=== PATIENT | male | born 1945 | race Caucasian/White ===

== ENCOUNTER 2017-01-04 06:24 | Day surgery (SDC) | payer MEDICARE, OTHER ==
[2017-01-01 10:18] VITALS: BMI 36.5
[~2017-01-04 06:24] MED LIST: ALPRAZolam 0.25 MG TAB PO PRN; ALPRAZolam 0.5 MG TAB PO PRN; ASPIRIN 325 MG TAB PO STA; ATORVASTATIN 80 MG TAB PO STA; NITROGLYCERIN SL TABS 0.4 MG TAB SUBLINGUAL PRN; SODIUM CHLORIDE 0.9% 1,000 ML in EMPTY BAG 1 BAG IV ONE
[2017-01-04 06:54] VITALS: TEMP 97.6
[2017-01-04 07:15] LABS: Basophils % (A) 1 %; CH 30.6; CHCM 33.5; Eosinophils # (A) 0.2 k/uL (0-0.7); Eosinophils % (A) 5 %; HDW 2.55; HGB 15.5 gm/dL (13.0-17.5); Luc # (Auto) 0.11; Luc % (Auto) 2; Lymphocytes # (A) 1.1 k/uL (1.0-4.8); Lymphocytes % (A) 21 %; MCH 30.4 pg (25.0-35.0); MCHC 33.1 g/dL (31.0-37.0); MCV 91.8 fL (80.0-100.0); Mean Platelet Volume 8.1; Monocytes # (A) 0.4 k/uL (0-1.0); Monocytes % (A) 7 %; Neutrophils # (A) 3.4 k/uL (1.3-7.7); Neutrophils % (A) 65 %; RBC 5.12 m/uL (4.30-5.90); WBC 5.2 k/uL (3.8-10.6); WBC (Perox) 5.19
[2017-01-04 07:32] LABS: Anion Gap 8 mmol/L; Blood Urea Nitrogen 22 mg/dL (9-20); Calcium 9.2 mg/dL (8.4-10.2); Carbon Dioxide 24 mmol/L (22-30); Chloride 111 mmol/L (98-107); Glucose 93 mg/dL (74-99); Non-African American GFR(MDRD) >60 (>60 ml/min/1.73 sqM); Sodium 143 mmol/L (137-145)
[2017-01-04 07:39] LABS: Potassium 4.7 mmol/L (3.5-5.1)
[2017-01-04] MEDS ORDERED: MIDAZOLAM 2 MG/2 ML VIAL IV ONE ×2 (07:59→08:14)
[2017-01-04] MEDS ORDERED: LIDOCAINE 2% INJ 20 MG/ML SQ ONE (08:01)
[2017-01-04] MEDS ORDERED: HYDROmorphone 2 MG/ML 1 ML SYRINGE IVP ONE (09:04)
[2017-01-04] MEDS ORDERED: RX INFO: IV CONTRAST WAS GIVEN 1 EACH MISC MISCELLANE PRN (09:23)
[2017-01-04] MEDS ORDERED: IOHEXOL 350 MG/ML 125ML BOTTLE INJ ONE (09:26)
[2017-01-04] MEDS ORDERED: SODIUM CHLORIDE 0.9% 1,000 ML IV SCH (09:30)
[2017-01-04 11:49] VITALS: RESP 18
--- NOTE | 2017-01-04 14:19 | CC ---
DATE OF SERVICE: 01/04/2017 PERFORMING PHYSICIAN: Anant Juarez MD, Restrooms Or Lounges Maid PROCEDURE PERFORMED: 1. Selective left and right coronary angiogram. 2. Left internal mammary artery angiogram. 3. An aortic root angiogram. INDICATION: This is a pleasant 71-year-old gentleman who is known to have coronary artery disease and in 2016 he underwent coronary artery bypass grafting x3 where he received BELTRAN to LAD, SVG to diag and SVG to PDA of RCA as well as aortic valve replacement, was experiencing intermittent episodes of chest discomfort resistant to maximize medical treatment. He was brought today to undergo a heart catheterization and possible percutaneous coronary intervention. APPROACH: Right common femoral artery. COMPLICATION: None. LEVEL OF SEDATION: Moderate with a sedation length of 80 minutes. PROCEDURE DESCRIPTION: After obtaining an informed consent, the patient was brought to the Cardiac Pantographer. The right common femoral artery was cannulated using micropuncture technique. The micropuncture wire passed easily. Then I placed a 6 Korean sheath in the right common femoral artery. Subsequently, I did selective right and left coronary angiogram using JL4 and JR4 catheters. After that, I did left internal mammary artery angiograph using a JR4 catheter. I tried engaging the SVG to diag and SVG to PDA using multiple catheters including JR4, LCV, multipurpose, as well as an AL1, and I was unable. At that point, I decided to stop and do aortic root angiogram which will be explained later in this report. SELECTIVE CORONARY ANGIOGRAM: 1. The left main is calcified with a critical disease distally, appeared to be in the range of 90% and seems to be involving the ostial left circumflex and ostial left anterior descending artery. 2. LEFT CIRCUMFLEX: The ostial left circumflex appeared to be severely diseased in the range of 80 to 90%. 3. PROXIMAL LEFT CIRCUMFLEX appeared to be angiographically normal and gives rises into first and second obtuse marginal branches which are moderate caliber vessel with mild disease only. The mid-left circumflex appeared to be angiographically normal and the left circumflex distally appeared to be angiographically normal as well. 4. LEFT ANTERIOR DESCENDING ARTERY: The LAD seems to be 100% occluded in the proximal portion. It gives rise into a large size diagonal branch which has competitive flow in it. 5. RIGHT CORONARY ARTERY: The RCA is 100% occluded in the midportion. CORONARY BYPASS ANGIOGRAM: The BELTRAN to LAD is patent but it is tortuous and the LAD fills very nicely from the BELTRAN. The LAD filled all the way to the midportion. AORTIC ROOT ANGIOGRAM: The aortic root angiogram was performed in the BEV projection and using a Dickson injection. The aortic root appeared to be short and mildly dilated. I was unable to visualize any coronary bypasses. CONCLUSION: 1. Known coronary artery disease with prior coronary artery bypass grafting x3 with BELTRAN to LAD, SVG to PDA of RCA and SVG to diag. 2. Critical distal left main coronary artery disease. 3. Occluded right coronary artery in the midportion. 4. Patent BELTRAN to LAD. 5. I was unable to opacify the SVG to diag and SVG to RCA. POSTPROCEDURE MANAGEMENT: I am going to obtain a CTA to assess the status of the two SVG. If the SVG to diag is patent, I am proceeding with a PCI of the left circumflex. MARTY
[2017-01-04 16:26] VITALS: BP 147/81; PULSE 62
== END 2017-01-04 17:03 | disposition home or self-care (01) ==
LOC: CATHCVL 06:24
PROVIDERS: ATTEND Internal Medicine Interventional Cardiology
DX: I25.110 Atherosclerotic heart disease of native coronary artery with unstable angina pectoris (principal); I25.84 Coronary atherosclerosis due to calcified coronary lesion; I25.82 Chronic total occlusion of coronary artery; Z95.1 Presence of aortocoronary bypass graft; I77.1 Stricture of artery; Z95.2 Presence of prosthetic heart valve; I10 Essential (primary) hypertension; Z87.891 Personal history of nicotine dependence; E78.5 Hyperlipidemia, unspecified; Z79.82 Long term (current) use of aspirin; Z79.51 Long term (current) use of inhaled steroids; Z79.899 Other long term (current) drug therapy
CPT/HCPCS: 93455; 93567; 80048; 85025; C1887 ×2; C1769 ×4; C1894; J2001; J2250; J1170; Q9967

== ENCOUNTER 2017-03-21 10:43 | Day surgery (SDC) | payer OTHER ==
[2017-03-19 09:00] VITALS: BMI 40.7
[~2017-03-21 10:43] MED LIST changes: -ALPRAZolam 0.25 MG TAB PO PRN; -ALPRAZolam 0.5 MG TAB PO PRN; +ASPIRIN 325 MG TAB PO ONE; -ASPIRIN 325 MG TAB PO STA; -ATORVASTATIN 80 MG TAB PO STA; -NITROGLYCERIN SL TABS 0.4 MG TAB SUBLINGUAL PRN
[2017-03-21 11:41] LABS: Basophils % (A) 0 %; CH 31.4; CHCM 33.2; Eosinophils # (A) 0.2 k/uL (0-0.7); Eosinophils % (A) 3 %; HCT 50.8 % (39.0-53.0); HDW 2.34; HGB 16.2 gm/dL (13.0-17.5); Luc # (Auto) 0.08; Luc % (Auto) 2; Lymphocytes % (A) 19 %; MCH 30.3 pg (25.0-35.0); MCHC 31.9 g/dL (31.0-37.0); MCV 94.9 fL (80.0-100.0); Mean Platelet Volume 8.2; Monocytes # (A) 0.4 k/uL (0-1.0); Monocytes % (A) 7 %; Neutrophils # (A) 3.8 k/uL (1.3-7.7); Neutrophils % (A) 69 %; RBC 5.35 m/uL (4.30-5.90); RDW 14.9 % (11.5-15.5); WBC 5.4 k/uL (3.8-10.6); WBC (Perox) 4.87
[2017-03-21 11:56] LABS: Anion Gap 11 mmol/L; Blood Urea Nitrogen 32 mg/dL (9-20); Calcium 9.1 mg/dL (8.4-10.2); Carbon Dioxide 22 mmol/L (22-30); Chloride 108 mmol/L (98-107); Glucose 94 mg/dL (74-99); Non-African American GFR(MDRD) >60 (>60 ml/min/1.73 sqM); Potassium 4.6 mmol/L (3.5-5.1); Sodium 141 mmol/L (137-145)
[2017-03-21] MEDS ORDERED: LIDOCAINE 2% INJ 20 MG/ML (20 ML MDV) ONE (12:15)
[2017-03-21] MEDS ORDERED: VERAPAMIL 2.5 MG/ML 2 ML AMP ONE (12:16)
[2017-03-21] MEDS ORDERED: MIDAZOLAM 2 MG/2 ML VIAL ONE ×2 (12:16→12:56)
[2017-03-21 12:19] VITALS: RESP 18
[2017-03-21] MEDS ORDERED: MIDAZOLAM 2 MG/2 ML VIAL IV ONE ×2 (12:44→13:01)
[2017-03-21] MEDS ORDERED: LIDOCAINE 2% INJ 20 MG/ML SQ ONE (12:49)
[2017-03-21] MEDS ORDERED: BIVALIRUDIN BOLUS 250 MG/50 ML IV ONE (12:53)
[2017-03-21] MEDS ORDERED: BIVALIRUDIN 250 MG in SODIUM CHLORIDE 0.9% 50 ML IV ONE (12:56)
[2017-03-21] MEDS ORDERED: fentaNYL (PF) 50 MCG/ML 2 ML AMP ONE (13:19)
[2017-03-21] MEDS ORDERED: fentaNYL (PF) 50 MCG/ML 2 ML AMP IV ONE (13:20)
[2017-03-21] MEDS ORDERED: CLOPIDOGREL 75 MG TAB ONE (13:31)
[2017-03-21] MEDS ORDERED: CLOPIDOGREL 75 MG TAB PO ONE (13:40)
[2017-03-21] MEDS ORDERED: IOHEXOL 350 MG/ML 125ML BOTTLE INJ ONE (13:44)
[2017-03-21] MEDS ORDERED: RX INFO: IV CONTRAST WAS GIVEN 1 EACH MISC MISCELLANE PRN (13:45)
[2017-03-21] MEDS ORDERED: ZOLPIDEM 5 MG TAB PO PRN (13:45)
[2017-03-21] MEDS ORDERED: MAG HYDROX/AL HYDROX/SIMETH 30 ML CUP PO PRN (13:45)
[2017-03-21] MEDS ORDERED: ATROPINE SULFATE 0.1 MG/ML 10ML SYRINGE IV PRN (13:45)
[2017-03-21] MEDS ORDERED: SODIUM CHLORIDE 0.9% 1,000 ML IV SCH (13:45)
[2017-03-21] MEDS ORDERED: NITROGLYCERIN SL TABS 0.4 MG TAB SUBLINGUAL PRN (13:45)
[2017-03-21] MEDS ORDERED: ALBUTEROL NEBULIZED 2.5 MG/3 ML INHALATION PRN ×2 (13:48)
[2017-03-21] MEDS ORDERED: ALLOPURINOL 100 MG TAB PO PRN (13:48)
[2017-03-21] MEDS ORDERED: IBUPROFEN 600 MG TAB PO PRN (13:48)
--- NOTE | 2017-03-21 14:57 | PTCA ---
PERCUTANEOUSTRANS CORORONARY ANGIOGRAPHY DATE OF SERVICE: March 21, 2017 PERFORMING PHYSICIAN: Anant Juarez MD, quotation clerk. PROCEDURE PERFORMED: 1. Successful stenting of the distal left main, proximal left circumflex coronary artery using 3.5 x 15 mm Promus Premier drug-eluting stent with good angiographic results. INDICATION: This is a pleasant 71-year-old gentleman who is known to have coronary artery disease and prior coronary artery bypass grafting, who was experiencing exertional chest discomfort and exertional dyspnea. He underwent a heart catheterization and was found to have severe disease involving the ostial left circumflex, which was unprotected by bypass. He was brought today to undergo an intervention. APPROACH: Right common femoral artery. COMPLICATION: None. LEVEL OF SEDATION: Moderate with sedation length 52 minutes. PROCEDURE DESCRIPTION: After obtaining informed consent, the patient was brought to the cardiac lab coordinator. The right common femoral artery was cannulated using micropuncture technique and a micropuncture wire passed easily. Then initially I placed a placed 6-Chilean 11 cm sheath in the right common femoral artery, but because of the severe tortuosity in the in the aortoiliac, I had to change my sheath into 23 cm sheath, which was 6-Chilean as well. After that, anticoagulation was initiated using Angiomax. Subsequently I did engage the left main using an XB3.5 guide. A whisper wire was used to wire the left circumflex and also I placed a cristo wire with a run-through wire. I did PTCA but dilatation using initially 3.0 x 12 mm balloon, then 3.0 x 12 noncompliant balloon. After that, I deployed a 3.5 x 15 x 16 mm Promus Premier drug-eluting stent where the stent was positioned under fluoroscopy guidance and deployed under 14 atmospheres for 30 seconds. I postdilated the stent using 3.5 mm noncompliant balloon. The procedure was completed without any complication. PROCEDURE MANAGEMENT: 1. Dual anti-platelet therapy. 2. Risk factor modifications. 3. Follow up with the patient. MMODL / IJN: [id number] /
[2017-03-21] MEDS ORDERED: LISINOPRIL 5 MG TAB PO SCH (21:00)
[2017-03-21] MEDS ORDERED: PRAVASTATIN SODIUM 20 MG TAB PO SCH (21:00)
[2017-03-21] MEDS: SYMBICORT 160-4.5 MCG INHALER INHALATION SCH (21:17)
[2017-03-21] MEDS: METOPROLOL TARTRATE 25 MG TAB PO SCH (22:53)
[2017-03-22 07:13] LABS: Basophils % (A) 0 %; CHCM 32.9; Eosinophils # (A) 0.2 k/uL (0-0.7); Eosinophils % (A) 3 %; HCT 48.8 % (39.0-53.0); HDW 2.34; HGB 15.2 gm/dL (13.0-17.5); Luc # (Auto) 0.07; Luc % (Auto) 1; Lymphocytes # (A) 1.2 k/uL (1.0-4.8); Lymphocytes % (A) 19 %; MCH 29.6 pg (25.0-35.0); MCHC 31.2 g/dL (31.0-37.0); MCV 94.7 fL (80.0-100.0); Mean Platelet Volume 8.6; Monocytes # (A) 0.5 k/uL (0-1.0); Monocytes % (A) 8 %; Neutrophils # (A) 4.5 k/uL (1.3-7.7); Neutrophils % (A) 69 %; RBC 5.15 m/uL (4.30-5.90); RDW 15.3 % (11.5-15.5); WBC 6.5 k/uL (3.8-10.6); WBC (Perox) 5.96
[2017-03-22 07:23] LABS: Anion Gap 8 mmol/L; Blood Urea Nitrogen 22 mg/dL (9-20); Calcium 8.8 mg/dL (8.4-10.2); Carbon Dioxide 24 mmol/L (22-30); Chloride 107 mmol/L (98-107); Glucose 83 mg/dL (74-99); Non-African American GFR(MDRD) >60 (>60 ml/min/1.73 sqM); Potassium 4.4 mmol/L (3.5-5.1); Sodium 139 mmol/L (137-145)
[2017-03-22] MEDS ORDERED: PANTOPRAZOLE 40 MG TABLET PO SCH (07:30)
[2017-03-22] MEDS: METOPROLOL TARTRATE 25 MG TAB PO SCH (08:41)
[2017-03-22] MEDS: SYMBICORT 160-4.5 MCG INHALER INHALATION SCH (08:45)
[2017-03-22] MEDS: IPRATROPIUM 0.5 MG/2.5 ML NEBU INHALATION SCH ×2 (08:45)
[2017-03-22] MEDS ORDERED: ASPIRIN 325 MG TAB PO SCH (09:00)
[2017-03-22 09:01] VITALS: BP 125/69; PULSE 50; TEMP 98.3
--- NOTE | 2017-03-22 09:40 | DS ---
DISCHARGE SUMMARY ADMISSION DATE: 03/21/2017 DISCHARGE DATE: 03/22/2017. BRIEF HISTORY: This is a very pleasant 71-year-old gentleman who was admitted to the hospital yesterday and underwent successful balloon angioplasty and stenting of the distal protected left main, proximal left circumflex, using a drug-eluting stent with good angiographic results and without any complication. The procedure was performed from the right groin approach. The patient is going to be discharged home on dual anti-platelet therapy as well as on statin. I am going to follow up with the patient in about 1 to 2 weeks in the office. The blood work from today came in to be unremarkable and the patient's vital signs were also stable during the last night. MMODL / IJN: [id number] /
[2017-03-22] MEDS ORDERED: MULTIVITAMINS, THERA 1 EACH TAB PO SCH (12:00)
[2017-03-22] MEDS ORDERED: CLOPIDOGREL 75 MG TAB PO SCH (12:00)
== END 2017-03-22 09:46 | disposition home or self-care (01) ==
LOC: CATHCVL 10:43 → 6SEL 13:44 → CATHCVL 03-22 09:46
PROVIDERS: ATTEND Internal Medicine Interventional Cardiology
DX: I25.10 Atherosclerotic heart disease of native coronary artery without angina pectoris (principal); I25.810 Atherosclerosis of coronary artery bypass graft(s) without angina pectoris; I77.1 Stricture of artery; I10 Essential (primary) hypertension; Z87.891 Personal history of nicotine dependence; Z82.49 Family history of ischemic heart disease and other diseases of the circulatory system; E78.5 Hyperlipidemia, unspecified; Z95.1 Presence of aortocoronary bypass graft; Z95.4 Presence of other heart-valve replacement; Z79.82 Long term (current) use of aspirin; Z79.51 Long term (current) use of inhaled steroids; Z79.899 Other long term (current) drug therapy
CPT/HCPCS: 99152; 99153 ×3; 94640 ×2; 80048 ×2; 85025 ×2; C9600; C1769 ×6; C1887 ×3; C1725 ×3; C1894 ×2; C1874; J2001; J2250; J3010; J0583; Q9967

== ENCOUNTER 2018-09-19 07:47 | Day surgery (SDC) | payer MEDICARE, OTHER ==
[~2018-09-19 07:47] MED LIST changes: +ALPRAZolam 0.25 MG TAB PO PRN; +ALPRAZolam 0.5 MG TAB PO PRN; -ASPIRIN 325 MG TAB PO ONE; +ASPIRIN 325 MG TAB PO STA; +ATORVASTATIN 80 MG TAB PO STA; +NITROGLYCERIN SL TABS 0.4 MG TAB SUBLINGUAL PRN
[2018-09-19 08:37] LABS: Basophils % (A) 0 %; Eosinophils # (A) 0.2 k/uL (0-0.7); Eosinophils % (A) 4 %; HCT 46.4 % (39.0-53.0); HGB 15.6 gm/dL (13.0-17.5); Lymphocytes # (A) 0.7 k/uL (1.0-4.8); Lymphocytes % (A) 11 %; MCHC 33.7 g/dL (31.0-37.0); MCV 92.1 fL (80.0-100.0); Mean Platelet Volume 7.5; Monocytes # (A) 0.5 k/uL (0-1.0); Monocytes % (A) 7 %; Neutrophils # (A) 4.9 k/uL (1.3-7.7); Neutrophils % (A) 75 %; Platelet Count 186 k/uL (150-450); RBC 5.04 m/uL (4.30-5.90); RDW 13.5 % (11.5-15.5); WBC 6.5 k/uL (3.8-10.6)
[2018-09-19] MEDS ORDERED: LIDOCAINE 1% INJ 10MG/ML (20 ML MDV) ONE (10:20)
[2018-09-19] MEDS ORDERED: IV FLUID CONTINUATION 800 ML IV ONE (10:26)
[2018-09-19] MEDS ORDERED: MIDAZOLAM 2 MG/2 ML VIAL IVP ONE ×2 (10:26→11:07)
[2018-09-19] MEDS ORDERED: LIDOCAINE 1% INJ 10MG/ML (20 ML MDV) SQ ONE (10:34)
[2018-09-19] MEDS ORDERED: BIVALIRUDIN 250 MG in SODIUM CHLORIDE 0.9% 50 ML IV ONE (10:53)
[2018-09-19] MEDS ORDERED: BIVALIRUDIN BOLUS 250 MG/50 ML IV ONE (10:53)
[2018-09-19] MEDS ORDERED: CLOPIDOGREL 75 MG TAB ONE (11:05)
[2018-09-19] MEDS ORDERED: CLOPIDOGREL 75 MG TAB PO ONE (11:07)
[2018-09-19] MEDS ORDERED: NON-FORMULARY DRUG (Sildenafil Citrate [Viagra] 100 MG) PO PRN (11:23)
[2018-09-19] MEDS ORDERED: ALBUTEROL INHALER 60 PUFF/8 GM INHALER INHALATION PRN (11:23)
[2018-09-19] MEDS ORDERED: ALBUTEROL NEBULIZED 2.5 MG/3 ML INHALATION PRN (11:23)
[2018-09-19] MEDS ORDERED: ALPRAZolam 0.5 MG TAB PO PRN (11:23)
[2018-09-19] MEDS ORDERED: ALLOPURINOL 100 MG TAB PO PRN (11:23)
[2018-09-19] MEDS ORDERED: NITROGLYCERIN SL TABS 0.4 MG TAB SUBLINGUAL PRN (11:26)
[2018-09-19] MEDS ORDERED: ZOLPIDEM 5 MG TAB PO PRN (11:26)
[2018-09-19] MEDS ORDERED: RX INFO: IV CONTRAST WAS GIVEN 1 EACH MISC MISCELLANE PRN (11:26)
[2018-09-19] MEDS ORDERED: MAG HYDROX/AL HYDROX/SIMETH 30 ML CUP PO PRN (11:26)
[2018-09-19] MEDS ORDERED: ATROPINE SULFATE 0.1 MG/ML 10ML SYRINGE IV PRN (11:26)
[2018-09-19] MEDS ORDERED: SODIUM CHLORIDE 0.9% 1,000 ML IV SCH (11:30)
[2018-09-19] MEDS ORDERED: IOPAMIDOL-370 150ML BTL INJ ONE (11:33)
--- NOTE | 2018-09-19 11:56 | LTR ---
September 19, 2018 Re: Piero Tiwari Dear Dr. Monaco: Mr. Piero Tiwari underwent successful stenting of the left circumflex with good angiographic results and without any complication. Thank you for allowing me to participate in his care and please do not hesitate to call if you have any question or concern. Sincerely, MD BETSY Cooley / JONATHAN: [id number] /
--- NOTE | 2018-09-19 12:14 | CC ---
CARDIAC CATHETERIZATION REPORT CARDIAC CATHETERIZATION AND PERCUTANEOUS CORONARY INTERVENTION DATE OF SERVICE: September 19, 2018 PERFORMING PHYSICIAN: Anant Juarez MD, aluminum siding applicator. PROCEDURE PERFORMED: 1. Selective left and right coronary angiogram. 2. Left internal mammary artery to LAD angiogram. 3. Successful stenting of the distal left main and proximal left circumflex using 3.5 x 15 mm Xience drug-eluting stent, which was postdilated using 3.75 mm NC balloon with an excellent angiographic result and reduction of stenosis from 80% to 0%. INDICATION: This is a pleasant 72-year-old gentleman with history of coronary artery disease and prior coronary artery bypass grafting with the last heart catheterization was performed in 2017 showing the occlusion of all vein grafts and patent BELTRAN to LAD. At that point, the patient underwent successful stenting of the distal left main and proximal left circumflex. The left main was protected left main. Recently, he has been experiencing symptoms of angina and symptoms of back and chest discomfort with exertion. Because of that, he was brought today to undergo a heart catheterization. APPROACH: Right common femoral artery. COMPLICATION: None. LEVEL OF SEDATION: Moderate with sedation length of 54 minutes. PROCEDURE DESCRIPTION: After obtaining an informed consent, the patient was brought to the cardiac . The right common femoral artery was cannulated using micropuncture technique and a micropuncture wire passed easily. Then I placed a 6-Macanese sheath 23 cm in the right common femoral artery. I performed that because he has a tortuous iliac. At that point, I did selective left and right coronary angiogram using JL4 and JR4 catheters. Left internal mammary artery angiogram was performed using the JR4 catheter. After that I did intervene on the left circumflex. Please see a separate paragraph for that. SELECTIVE CORONARY ANGIOGRAM: 1. The left main is a large caliber vessel with distal lesion appeared to be in the range of 80% involving the LAD and left circumflex. 2. The left circumflex is a large caliber vessel and it is a codominant vessel. The ostial left circumflex is involving in the lesion from the left main and this severe in-stent restenosis appeared to be in the range of 80%. After that, the left circumflex appeared to be angiographically normal. 3. The LAD: The ostial LAD is involved in the lesion from the left main as well. The proximal LAD appeared to have mild disease only. There is competitive flow from the BELTRAN was seen in the LAD. 4. The right coronary artery: The RCA is probably chronically occluded in the midportion. CORONARY BYPASS ANGIOGRAM: The BELTRAN to LAD is patent and seems to be functioning normally. PCI OF THE LEFT CIRCUMFLEX: Anticoagulation was initiated using Angiomax. Subsequently I did engage the left main using JL4 guide. A run-through wire was used to wire the left circumflex. After that I did balloon angioplasty using AngioSculpt balloon which was 3.0 x 12 before I deployed a 3.5 x 15 mm Xience drug-eluting stent where the stent was positioned under fluoroscopy guidance and deployed under 16 atmospheres for 20 seconds. I post-dilated the stent using 3.75 mm NC balloon. The final angiogram showed good angiographic results and the procedure was completed without any complication. CONCLUSION: 1. Severe triple-vessel coronary artery disease. 2. Patent BELTRAN to LAD. 3. Severe in-stent restenosis involving the distal left main proximal left circumflex stent. 4. Chronic total occlusion of the right coronary artery. 5. Successful stenting of the distal left main and proximal left circumflex using 3.5 x 15 mm Xience JAJA with good angiographic results as described above. POSTPROCEDURE MANAGEMENT: 1. Maximize medical treatment. 2. Dual anti-platelet therapy. 3. Aggressive cholesterol control. 4. Will follow up with the patient. MMODL / IJN: [id number] /
[2018-09-19 18:05] VITALS: RESP 18; BMI 44.0
[2018-09-19] MEDS: FUROSEMIDE 40 MG TAB PO SCH (18:07)
[2018-09-19] MEDS: SYMBICORT 160-4.5 MCG INHALER INHALATION SCH (19:42)
[2018-09-19] MEDS: METOPROLOL TARTRATE 25 MG TAB PO SCH (20:10)
[2018-09-19] MEDS ORDERED: CLOPIDOGREL 75 MG TAB PO SCH (21:00)
[2018-09-19] MEDS ORDERED: LISINOPRIL 5 MG TAB PO SCH (21:00)
[2018-09-19] MEDS ORDERED: PRAVASTATIN SODIUM 20 MG TAB PO SCH (21:00)
[2018-09-20 06:54] LABS: Basophils % (A) 1 %; Eosinophils # (A) 0.3 k/uL (0-0.7); Eosinophils % (A) 5 %; HCT 43.5 % (39.0-53.0); HGB 14.3 gm/dL (13.0-17.5); Lymphocytes # (A) 0.8 k/uL (1.0-4.8); Lymphocytes % (A) 14 %; MCHC 32.9 g/dL (31.0-37.0); MCV 94.3 fL (80.0-100.0); Mean Platelet Volume 7.6; Monocytes # (A) 0.5 k/uL (0-1.0); Monocytes % (A) 9 %; Neutrophils # (A) 3.8 k/uL (1.3-7.7); Neutrophils % (A) 69 %; Platelet Count 175 k/uL (150-450); RBC 4.61 m/uL (4.30-5.90); RDW 13.4 % (11.5-15.5); WBC 5.5 k/uL (3.8-10.6)
[2018-09-20 07:03] LABS: Calcium 9.4 mg/dL (8.4-10.2); Potassium 3.7 mmol/L (3.5-5.1)
[2018-09-20] MEDS: SYMBICORT 160-4.5 MCG INHALER INHALATION SCH (07:30)
[2018-09-20] MEDS ORDERED: PANTOPRAZOLE 40 MG TABLET PO SCH (07:30)
[2018-09-20] MEDS ORDERED: IPRATROPIUM 0.5 MG/2.5 ML NEBU INHALATION SCH (08:00)
[2018-09-20] MEDS: FUROSEMIDE 40 MG TAB PO SCH (08:16)
[2018-09-20] MEDS: METOPROLOL TARTRATE 25 MG TAB PO SCH (08:17)
[2018-09-20 08:46] VITALS: BP 118/57; PULSE 52; TEMP 98.8
[2018-09-20] MEDS ORDERED: ASPIRIN 81 MG PO SCH (09:00)
[2018-09-20] MEDS ORDERED: SPIRONOLACTONE 25 MG TAB PO SCH (09:00)
--- NOTE | 2018-09-20 09:30 | DS ---
DISCHARGE SUMMARY DATE OF ADMISSION: 09/19/2018 DATE OF DISCHARGE: 09/20/2018 BRIEF HISTORY: This is a 72-year-old gentleman who was admitted to the hospital yesterday and underwent heart catheterization for unstable angina. The heart catheterization revealed severe disease involving the distal left main, which was protected left main, and ostial left circumflex. He underwent successful stenting of the distal left main and proximal left circumflex with good angiographic results and without any complication. On followup with the patient today, he is doing well and he is asymptomatic. From the cardiovascular point of view, the patient can be discharged home. The right groin is soft and nontender and without any bruises. MMODL / IJN: [id number] /
[2018-09-20] MEDS ORDERED: MULTIVITAMINS, THERA 1 EACH TAB PO SCH (12:00)
== END 2018-09-20 09:09 | disposition home or self-care (01) ==
LOC: CATHCVL 07:47 → 3SCARD 11:18 → CATHCVL 09-20 09:09
PROVIDERS: ATTEND Internal Medicine Interventional Cardiology
DX: I25.10 Atherosclerotic heart disease of native coronary artery without angina pectoris (principal); I25.82 Chronic total occlusion of coronary artery; I77.1 Stricture of artery; I25.5 Ischemic cardiomyopathy; I11.0 Hypertensive heart disease with heart failure; I50.22 Chronic systolic (congestive) heart failure; I08.1 Rheumatic disorders of both mitral and tricuspid valves; E78.5 Hyperlipidemia, unspecified; J44.9 Chronic obstructive pulmonary disease, unspecified; F17.210 Nicotine dependence, cigarettes, uncomplicated; I44.0 Atrioventricular block, first degree; Z95.2 Presence of prosthetic heart valve; Z95.1 Presence of aortocoronary bypass graft; Z95.5 Presence of coronary angioplasty implant and graft; Z79.899 Other long term (current) drug therapy; Z79.82 Long term (current) use of aspirin; Z79.02 Long term (current) use of antithrombotics/antiplatelets
CPT/HCPCS: 94640 ×4; 93455; 80048; 85025 ×2; C9600; C1760; C1887; C1769 ×5; C1725 ×2; C1894 ×2; C1874; J2250; J2001; J0583; Q9967

== ENCOUNTER 2019-03-01 14:38 | Inpatient (IN) | payer OTHER, MEDICARE ==
[2019-03-01] MEDS ORDERED: methylPREDNISolone SOD SUCCI 125 MG/2 ML VIAL IV STA (14:43)
[2019-03-01] MEDS ORDERED: SODIUM CHLORIDE 0.9% 1,000 ML IV STA (14:43)
[2019-03-01] MEDS ORDERED: IPRATROPIUM-ALBUTEROL 3 ML NEB INHALATION STA (14:43)
--- NOTE | 2019-03-01 15:05 | ED ---
SOB HPI - General Chief Complaint: Shortness of Breath Stated Complaint: SOB Time Seen by Provider: 03/01/19 14:43 Source: patient, RN notes reviewed, old records reviewed Mode of arrival: ambulatory Limitations: no limitations - History of Present Illness Initial Comments: This is a 71-year-old male the ER for evaluation patient is today for evaluation of significant shortness of breath. Patient does have history of heart disease and long-standing lung disease. Patient's been sleeping for Darri[place] friends today about a week. Has not eaten or drank apparently over the saline time. Patient's complaining of shortness of breath some abdominal pain no chest pain. Patient is scheduled to have pacemaker placed secondary to low heart rate although patient's heart rate is higher today. Patient again denies any current chest pain. No recent change in medications MD Complaint: shortness of breath, cough -: hour(s), days(s) Severity: moderate Severity scale (1-10): 6 Consistency: constant Improves With: nothing Worsens With: nothing Known History Of: asthma, congestive heart failure Context: recent URI Associated Symptoms: denies other symptoms Treatments Prior to Arrival: none - Related Data Home Medications Medication Instructions Recorded Confirmed Albuterol Sulfate [Proair Hfa] 2 puff INHALATION RT-QID PRN 01/27/16 03/01/19 Budesonide-Formot 160-4.5 Mcg 2 puff INHALATION RT-BID PRN 01/27/16 03/01/19 [Symbicort 160-4.5 Mcg Inhaler] Tiotropium [place] [Spiriva] 1 puff INHALATION RT-DAILY 01/27/16 03/01/19 Allopurinol [Zyloprim] 100 mg PO HS PRN 01/04/17 03/01/19 Lisinopril [Zestril] 5 mg PO HS 01/04/17 03/01/19 Albuterol Nebulized [Ventolin 2.5 mg INHALATION Q4H PRN 03/19/17 03/01/19 Nebulized] Omeprazole [PriLOSEC] 40 mg PO AC-BRKFST 03/19/17 03/01/19 Pravastatin Sodium [Pravachol] 10 mg PO HS 03/19/17 03/01/19 Sildenafil Citrate [Viagra] 100 mg PO DIRECTED PRN 03/19/17 03/01/19 Aspirin EC [Ecotrin Low Dose] 81 mg PO DAILY 08/29/18 03/01/19 Furosemide [Lasix] 40 mg PO BID 09/18/18 03/01/19 Clopidogrel [Plavix] 75 mg PO HS 09/19/18 03/01/19 Previous Rx's Medication Instructions Recorded Metoprolol Tartrate [Lopressor] 25 mg PO BID #30 tab 02/03/16 Spironolactone [Aldactone] 25 mg PO DAILY #30 tab 09/01/18 Allergies Allergy/AdvReac Type Severity Reaction Status Date / Time levofloxacin [From Levaquin] AdvReac Unknown Verified 03/01/19 15:17 Review of Systems ROS Statement: Those systems with pertinent positive or pertinent negative responses have been documented in the HPI. ROS Other: All systems not noted in ROS Statement are negative. Past Medical History Past Medical History: Asthma, Coronary Artery Disease (CAD), Chest Pain / Angina, Heart Failure, COPD, GERD/Reflux, Hyperlipidemia, Hypertension, Osteoarthritis (OA) Additional Past Medical History / Comment(s): Arthritis in fingers, gout bilateral feet toes, past SBO/incarcerated R upper quadrant ventral incisional hernia with surgery. History of Any Multi-Drug Resistant Organisms: None Reported Date of last positivie culture/infection: 2007 MDRO Source:: SURGICAL INCISION Past Surgical History: Appendectomy, Cardiac Valve Replacement, Cholecystectomy, Coronary Bypass/CABG, Heart Catheterization, Heart Catheterization With Stent, Hernia Repair Additional Past Surgical History / Comment(s): 01/2016 aortic valve replacement with triple bypass, 2017 PCI with stents, R upper quadrant ventral incisional hernia repair, R ankle surgery with rods/pins, exploratory laparotomy while in [place]-pt doesn't recall what was found, colonoscopy, bilateral cataract removals/lens implants. Past Anesthesia/Blood Transfusion Reactions: No Reported Reaction Date of Last Stent Placement:: 03/22/17 Past Psychological History: Anxiety, PTSD Smoking Status: Former smoker Past Alcohol Use History: None Reported Past Drug Use History: None Reported - Past Family History Father Family Medical History: Myocardial Infarction ([place]) Additional Family Medical History / Comment(s): CABG. Father had a KS at the age of 72 yrs. Father at the age of 85 yrs. Mother Family Medical History: Myocardial Infarction ([place]) Additional Family Medical History / Comment(s): CABG. Mother had a KS in her 70s. She lived to be 88yrs old. General Exam Limitations: no limitations General appearance: alert, in no apparent distress Head exam: Present: atraumatic, normocephalic, normal inspection Eye exam: Present: normal appearance, PERRL, EOMI. Absent: scleral icterus, conjunctival injection, periorbital swelling ENT exam: Present: normal exam, mucous membranes moist Neck exam: Present: normal inspection. Absent: tenderness, meningismus, l ymphadenopathy Respiratory exam: Present: respiratory distress, wheezes, decreased breath sounds, prolonged expiratory. Absent: rales, rhonchi, stridor Cardiovascular Exam: Present: normal rhythm, tachycardia, normal heart sounds. Absent: systolic murmur, diastolic murmur, rubs, gallop, clicks GI/Abdominal exam: Present: soft, normal bowel sounds. Absent: distended, tenderness, guarding, rebound, rigid Extremities exam: Present: normal inspection, full ROM, normal capillary refill. Absent: tenderness, pedal edema, joint swelling, calf tenderness Back exam: Present: normal inspection Neurological exam: Present: alert, oriented X3, CN II-XII intact Psychiatric exam: Present: normal affect, normal mood Skin exam: Present: warm, dry, intact, normal color. Absent: rash Course Vital Signs 03/01/19 03/01/19 03/01/19 14:45 15:36 15:52 Temperature 99.0 F Pulse Rate 110 H 101 H 110 H Respiratory 20 Rate Blood Pressure 126/77 O2 Sat by Pulse 97 Oximetry - Reevaluation(s) Reevaluation #1: 03/01/19 15:47 Medical record is reviewed Reevaluation #2: 03/01/19 16:16 Patient informed of findings, questions answered - Consultations Consultation #1: Spoke with Dr. Qureshi for admission is agreeable Medical Decision Making - Medical Decision Making 83-year-old male the ER for evaluation coming in for non-STEMI. Patient be admitted for cardiology observation in A. fib with RVR and ACS on rate control and anticoagulation - Lab Data Result diagrams: 03/01/19 15:07 03/01/19 15:07 Lab Results 03/01/19 03/01/19 03/01/19 Range/Units 15:07 15:07 15:07 WBC 13.0 H (3.8-10.6) k/uL RBC 4.19 L (4.30-5.90) m/uL Hgb 12.2 L (13.0-17.5) gm/dL Hct 37.0 L (39.0-53.0) % MCV 88.3 (80.0-100.0) fL MCH 29.1 (25.0-35.0) pg MCHC 33.0 (31.0-37.0) g/dL RDW 16.1 H (11.5-15.5) % Plt Count 247 (150-450) k/uL Neutrophils % 88 % Lymphocytes % 6 % Monocytes % 4 % Eosinophils % 1 % Basophils % 0 % Neutrophils # 11.4 H (1.3-7.7) k/uL Lymphocytes # 0.8 L (1.0-4.8) k/uL Monocytes # 0.6 (0-1.0) k/uL Eosinophils # 0.1 (0-0.7) k/uL Basophils # 0.0 (0-0.2) k/uL Anisocytosis Slight PT (9.0-12.0) sec INR (<1.2) APTT (22.0-30.0) sec Sodium 138 (137-145) mmol/L Potassium 4.1 (3.5-5.1) mmol/L Chloride 102 (98-107) mmol/L Carbon Dioxide 25 (22-30) mmol/L Anion Gap 11 mmol/L BUN 21 H (9-20) mg/dL Creatinine 0.92 (0.66-1.25) mg/dL Est GFR (CKD-EPI)AfAm >90 (>60 ml/min/1.73 sqM) Est GFR (CKD-EPI)NonAf 83 (>60 ml/min/1.73 sqM) Glucose 119 H (74-99) mg/dL Calcium 9.6 (8.4-10.2) mg/dL Magnesium 1.8 (1.6-2.3) mg/dL Total Bilirubin 0.9 (0.2-1.3) mg/dL AST 55 (17-59) U/L ALT 60 (21-72) U/L Alkaline Phosphatase 154 H (38-126) U/L Troponin I (0.000-0.034) ng/mL NT-Pro-B Natriuret Pep 65480 pg/mL Total Protein 6.8 (6.3-8.2) g/dL Albumin 3.4 L (3.5-5.0) g/dL 03/01/19 03/01/19 Range/Units 15:07 15:07 WBC (3.8-10.6) k/uL RBC (4.30-5.90) m/uL Hgb (13.0-17.5) gm/dL Hct (39.0-53.0) % MCV (80.0-100.0) fL MCH (25.0-35.0) pg MCHC (31.0-37.0) g/dL RDW (11.5-15.5) % Plt Count (150-450) k/uL Neutrophils % % Lymphocytes % % Monocytes % % Eosinophils % % Basophils % % Neutrophils # (1.3-7.7) k/uL Lymphocytes # (1.0-4.8) k/uL Monocytes # (0-1.0) k/uL Eosinophils # (0-0.7) k/uL Basophils # (0-0.2) k/uL Anisocytosis PT 11.8 (9.0-12.0) sec INR 1.1 (<1.2) APTT 26.5 (22.0-30.0) sec Sodium (137-145) mmol/L Potassium (3.5-5.1) mmol/L Chloride (98-107) mmol/L Carbon Dioxide (22-30) mmol/L Anion Gap mmol/L BUN (9-20) mg/dL Creatinine (0.66-1.25) mg/dL Est GFR (CKD-EPI)AfAm (>60 ml/min/1.73 sqM) Est GFR (CKD-EPI)NonAf (>60 ml/min/1.73 sqM) Glucose (74-99) mg/dL Calcium (8.4-10.2) mg/dL Magnesium (1.6-2.3) mg/dL Total Bilirubin (0.2-1.3) mg/dL AST (17-59) U/L ALT (21-72) U/L Alkaline Phosphatase (38-126) U/L Troponin I 2.370 H* (0.000-0.034) ng/mL NT-Pro-B Natriuret Pep pg/mL Total Protein (6.3-8.2) g/dL Albumin (3.5-5.0) g/dL - EKG Data -: EKG Interpreted by Me (EKG shows sinus tachycardia rate 110, NH 186, QRS 132 and QTc 473) - Radiology Data Radiology results: report reviewed (Chest x-rays negative for acute disease), image reviewed Critical Care Time Critical Care Time: Yes Total Critical Care Time: 31 Disposition Clinical Impression: Chest pain, NSTEMI (non-ST elevated myocardial infarction), Atrial fibrillation with RVR Disposition: ADMITTED IP TO THIS HOSP Condition: Serious Is patient prescribed a controlled substance at d/c from ED?: No Referrals: [facility],Clinic [Primary Care Provider] - 1-2 days
[2019-03-01 15:16] LABS: Anisocytosis Slight; Basophils % (A) 0 %; Eosinophils # (A) 0.1 k/uL (0-0.7); Eosinophils % (A) 1 %; HGB 12.2 gm/dL (13.0-17.5); Lymphocytes # (A) 0.8 k/uL (1.0-4.8); Lymphocytes % (A) 6 %; MCH 29.1 pg (25.0-35.0); MCV 88.3 fL (80.0-100.0); Mean Platelet Volume 8.8; Monocytes # (A) 0.6 k/uL (0-1.0); Monocytes % (A) 4 %; Neutrophils # (A) 11.4 k/uL (1.3-7.7); Neutrophils % (A) 88 %; Platelet Count 247 k/uL (150-450); RBC 4.19 m/uL (4.30-5.90); RDW 16.1 % (11.5-15.5)
[2019-03-01 15:26] LABS: INR 1.1 (<1.2); Partial Thromboplastin Time 26.5 sec (22.0-30.0); Prothrombin Time 11.8 sec (9.0-12.0)
[2019-03-01 15:29] LABS: ALT 60 U/L (21-72); AST 55 U/L (17-59); African American GFR (CKD) >90 (>60 ml/min/1.73 sqM); Albumin 3.4 g/dL (3.5-5.0); Alkaline Phosphatase 154 U/L (38-126); Anion Gap 11 mmol/L; Blood Urea Nitrogen 21 mg/dL (9-20); Calcium 9.6 mg/dL (8.4-10.2); Carbon Dioxide 25 mmol/L (22-30); Chloride 102 mmol/L (98-107); Glucose 119 mg/dL (74-99); Magnesium 1.8 mg/dL (1.6-2.3); Non-African American GFR(CKD) 83 (>60 ml/min/1.73 sqM); Potassium 4.1 mmol/L (3.5-5.1); Sodium 138 mmol/L (137-145); Total Bilirubin 0.9 mg/dL (0.2-1.3); Total Protein 6.8 g/dL (6.3-8.2)
--- NOTE | 2019-03-01 15:35 | XR ---
EXAMINATION TYPE: XR chest 2V DATE OF EXAM: 03/01/2019 COMPARISON: 11/12/2018 HISTORY: Difficulty breathing TECHNIQUE: Frontal and lateral views of the chest are obtained. FINDINGS: Heart appears borderline enlarged. There are sternal wires. There is cardiac valve prosthe sis. There is no pleural effusion. Bony thorax is intact. There are chest leads. There is no heart failure. IMPRESSION: No active cardiopulmonary disease. Borderline cardiomegaly. No change compared to old ex am.
[2019-03-01] MEDS ORDERED: NITROGLYCERIN SL TABS 0.4 MG TAB SUBLINGUAL PRN (16:04)
[2019-03-01] MEDS ORDERED: HEPARIN SODIUM,PORCINE 5,000 UNIT/ML 1 ML VIAL IV ONE (16:04)
[2019-03-01] MEDS ORDERED: ASPIRIN 81 MG PO STA (16:10)
[2019-03-01] MEDS ORDERED: HEPARIN SODIUM,PORCINE 5,000 UNIT/ML 1 ML VIAL IV PRN (16:10)
[2019-03-01] MEDS: HEPARIN SOD,PORK IN 0.45% NACL 25,000 UNIT in 0.45% NACL 1 250ML.BAG IV SCH (16:58)
[2019-03-01] MEDS ORDERED: ALLOPURINOL 100 MG TAB PO PRN (20:10)
[2019-03-01] MEDS ORDERED: BISACODYL 5 MG TABLET.DR PO PRN (20:12)
[2019-03-01] MEDS: LISINOPRIL 5 MG TAB PO SCH (20:50)
[2019-03-01] MEDS: METOPROLOL TARTRATE 25 MG TAB PO SCH (20:50)
[2019-03-01] MEDS: CLOPIDOGREL 75 MG TAB PO SCH (20:50)
[2019-03-01] MEDS: PRAVASTATIN SODIUM 20 MG TAB PO SCH (20:50)
[2019-03-01] MEDS: SODIUM CHLORIDE 0.9% 1,000 ML IV SCH (20:53)
[2019-03-01] MEDS ORDERED: FUROSEMIDE 40 MG TAB PO SCH (21:00)
[2019-03-02] MEDS: TEMAZEPAM 30 MG CAP PO PRN (00:11)
--- NOTE | 2019-03-02 00:55 | P.HPIM ---
History of Present Illness H&P Date: 03/01/19 Chief Complaint: Shortness of breath Patient is a 73-year-old male with a known history of coronary artery disease status post CABG, history of PCI and recent cardiac catheterization with stent placement in September , severe coronary disease, chronic CHF with systolic dysfunction ejection fraction 20-25%, COPD possible underlying restrictive lung disease, paroxysmal atrial fibrillation and morbid obesity with BMI 41.5 and other multiple medical problems came to ER with complaints of shortness of breath, worsening for the past 10 days. Patient also having chest pain on and off and felt like tightness of the chest. Patient also says that his heart rate was increasing 100 at home. Patient is supposed to get pacemaker due to tachybradycardia in February 24 2019 but was postponed to 2018. Patient has been sleeping mostly for the past 1 week. Chest x-ray showed borderline cardiomegaly. Unchanged from prior study. EKG showed sinus tachycardia with premature ventricular complexes and left Atrial Enlargement. Troponin 2.37 and 1.49, WBC 13.0 BNP 15055 Review of Systems Constitutional: Patient denies any fever or chills . No generalized weakness or weight loss. Abdomen: Patient denied nausea vomiting and diarrhea and abdominal pain. Cardiovascular: As her chest tightness, shortness of breath and slightly i ncreased leg swelling. Respiratory: patient denied any cough is from production. No shortness of br eath Neurologic: Patient denied any numbness or tingling headache. Musculoskeletal: Patient denies any complaints of joint swelling or deformity. Skin: Negative Psychiatric: Negative Endocrine: No heat or cold intolerance. No recent weight gain. Genitourinary: No dysuria or hematuria. All other 14 point ROS negative except the above Past Medical History Past Medical History: Asthma, Coronary Artery Disease (CAD), Chest Pain / Angina, Heart Failure, COPD, GERD/Reflux, Hyperlipidemia, Hypertension, Osteoarthritis (OA) Additional Past Medical History / Comment(s): Arthritis in fingers, gout bilateral feet toes, past SBO/incarcerated R upper quadrant ventral incisional hernia with surgery. History of Any Multi-Drug Resistant Organisms: None Reported Date of last positivie culture/infection: 2007 MDRO Source:: SURGICAL INCISION Past Surgical History: Appendectomy, Cardiac Valve Replacement, Cholecystectomy, Coronary Bypass/CABG, Heart Catheterization, Heart Catheterization With Stent, Hernia Repair Additional Past Surgical History / Comment(s): 01/2016 aortic valve replacement with triple bypass, 2017 PCI with stents, R upper quadrant ventral incisional hernia repair, R ankle surgery with rods/pins, exploratory laparotomy while in [place]-pt doesn't recall what was found, colonoscopy, bilateral cataract removals/lens implants. Past Anesthesia/Blood Transfusion Reactions: No Reported Reaction Date of Last Stent Placement:: 03/22/17 Past Psychological History: Anxiety, PTSD Smoking Status: Former smoker Past Alcohol Use History: None Reported Past Drug Use History: None Reported - Past Family History Father Family Medical History: Myocardial Infarction ([place]) Additional Family Medical History / Comment(s): CABG. Father had a NV at the age of 72 yrs. Father at the age of 85 yrs. Mother Family Medical History: Myocardial Infarction ([place]) Additional Family Medical History / Comment(s): CABG. Mother had a NV in her 70s. She lived to be 88yrs old. Medications and Allergies Home Medications Medication Instructions Recorded Confirmed Type Albuterol Sulfate [Proair Hfa] 2 puff INHALATION RT-QID PRN 01/27/16 03/01/19 History Budesonide-Formot 160-4.5 Mcg 2 puff INHALATION RT-BID PRN 01/27/16 03/01/19 History [Symbicort 160-4.5 Mcg Inhaler] Tiotropium [place] [Spiriva] 1 puff INHALATION RT-DAILY 01/27/16 03/01/19 History Metoprolol Tartrate [Lopressor] 25 mg PO BID #30 tab 02/03/16 03/01/19 Rx Allopurinol [Zyloprim] 100 mg PO HS PRN 01/04/17 03/01/19 History Lisinopril [Zestril] 5 mg PO HS 01/04/17 03/01/19 History Albuterol Nebulized [Ventolin 2.5 mg INHALATION Q4H PRN 03/19/17 03/01/19 History Nebulized] Omeprazole [PriLOSEC] 40 mg PO AC-BRKFST 03/19/17 03/01/19 History Pravastatin Sodium [Pravachol] 10 mg PO HS 03/19/17 03/01/19 History Sildenafil Citrate [Viagra] 100 mg PO DIRECTED PRN 03/19/17 03/01/19 History Aspirin EC [Ecotrin Low Dose] 81 mg PO DAILY 08/29/18 03/01/19 History Spironolactone [Aldactone] 25 mg PO DAILY #30 tab 09/01/18 03/01/19 Rx Furosemide [Lasix] 40 mg PO BID 09/18/18 03/01/19 History Clopidogrel [Plavix] 75 mg PO HS 09/19/18 03/01/19 History Allergies Allergy/AdvReac Type Severity Reaction Status Date / Time levofloxacin [From Levaquin] AdvReac Unknown Verified 03/01/19 15:17 Physical Exam Vitals: Vital Signs Temp Pulse Resp BP Pulse Ox 03/01/19 17:59 101 H 19 107/86 98 03/01/19 17:06 98.3 F 102 H 19 106/73 95 03/01/19 15:52 110 H 03/01/19 15:36 101 H 03/01/19 14:45 99.0 F 110 H 20 126/77 97 Intake and Output 03/01/19 03/01/19 03/01/19 06:59 14:59 22:59 Other: Weight 120.202 kg PHYSICAL EXAMINATION: Patient is lying in the bed comfortably, no acute distress, awake alert and oriented morbidly obese... HEENT: Normocephalic. Neck is supple. Pupils reactive. Nostrils clear. Oral cavity is moist. Ears reveal no drainage. Neck reveals no JVD, carotid bruits, or thyromegaly. CHEST EXAMINATION: Trachea is central. Symmetrical expansion. Bibasilar diminished air entry. Lung nolen clear to auscultation and percussion. CARDIAC: Normal S1, S2 with no gallops. No murmurs ABDOMEN: Soft. Obese, distended, Bowel sounds normal. No organomegaly. No abdominal bruits. Extremities: 2+ edema. No clubbing or cyanosis Neurologically awake, alert, oriented x3 with well-coordinated movements. No focal deficits noted Skin: No rash or skin lesions. Psychiatric: Coperative. Nonsuicidal Musculoskeletal: No joint swelling or deformity. Normal range of motion. Results CBC & Chem 7: 03/01/19 15:07 03/01/19 15:07 Labs: Abnormal Lab Results - Last 24 Hours (Table) 03/01/19 03/01/19 03/01/19 Range/Units 15:07 15:07 15:07 WBC 13.0 H (3.8-10.6) k/uL RBC 4.19 L (4.30-5.90) m/uL Hgb 12.2 L (13.0-17.5) gm/dL Hct 37.0 L (39.0-53.0) % RDW 16.1 H (11.5-15.5) % Neutrophils # 11.4 H (1.3-7.7) k/uL Lymphocytes # 0.8 L (1.0-4.8) k/uL BUN 21 H (9-20) mg/dL Glucose 119 H (74-99) mg/dL Alkaline Phosphatase 154 H (38-126) U/L Troponin I 2.370 H* (0.000-0.034) ng/mL Albumin 3.4 L (3.5-5.0) g/dL Thrombosis Risk Factor Assmnt - DVT/VTE Prophylaxis DVT/VTE Prophylaxis: Pharmacologic Prophylaxis ordered Assessment and Plan Assessment: Acute non-ST elevated NV with elevated troponin level. Shortness of breath due to acute on chronic CHF with systolic dysfunction. Ejection fraction 20-25%. Patient does have elevated BNP and increased leg swelling. Ischemic cardiomyopathy Possible underlying COPD with extrapulmonary restriction of lung. Paroxysmal atrial fibrillation. Severe Coronary artery disease and history of stent placement recently on September 2018 History of coronary artery bypass graft Hypertension Hyperlipidemia Osteoarthritis Chronic anxiety/PTSD Morbid obesity with BMI 41.5 History of aortic valve replacement due to severe aortic stenosis. History of gout Fatty infiltration of the liver Plan: Patient will be continued on aspirin, Plavix and statins, beta blockers. Started on Lasix 20 mg IV every 12 and continue with spinal lack tone. Continue with DuoNeb's and oxygen therapy as needed. Continue the home medications and follow up closely. Cardiology was consulted. Prognosis is guarded with multiple medical problems and comorbid conditions. Time with Patient: Greater than 30
[2019-03-02 04:27] LABS: Basophils % (A) 0 %; Eosinophils % (A) 0 %; HCT 35.4 % (39.0-53.0); HGB 11.6 gm/dL (13.0-17.5); Hypochromasia Slight; Lymphocytes # (A) 0.7 k/uL (1.0-4.8); Lymphocytes % (A) 7 %; MCH 29.2 pg (25.0-35.0); MCHC 32.8 g/dL (31.0-37.0); MCV 88.9 fL (80.0-100.0); Mean Platelet Volume 8.3; Monocytes # (A) 0.2 k/uL (0-1.0); Monocytes % (A) 3 %; Neutrophils # (A) 8.2 k/uL (1.3-7.7); Neutrophils % (A) 89 %; Platelet Count 218 k/uL (150-450); RBC 3.98 m/uL (4.30-5.90); RDW 14.8 % (11.5-15.5); WBC 9.2 k/uL (3.8-10.6)
[2019-03-02 05:31] LABS: African American GFR (CKD) >90 (>60 ml/min/1.73 sqM); Anion Gap 10 mmol/L; Blood Urea Nitrogen 26 mg/dL (9-20); Calcium 9.1 mg/dL (8.4-10.2); Carbon Dioxide 24 mmol/L (22-30); Chloride 103 mmol/L (98-107); Cholesterol 188 mg/dL (<200); Glucose 174 mg/dL (74-99); HDL Cholesterol 19 mg/dL (40-60); LDL Cholesterol,Calculated 148 mg/dL (0-99); Non-African American GFR(CKD) 86 (>60 ml/min/1.73 sqM); Potassium 4.6 mmol/L (3.5-5.1); Sodium 137 mmol/L (137-145); Triglycerides 105 mg/dL (<150)
[2019-03-02] MEDS: PANTOPRAZOLE 40 MG TABLET PO SCH (06:41)
[2019-03-02] MEDS: IPRATROPIUM 0.5 MG/2.5 ML NEBU INHALATION SCH ×4 (08:52→19:00)
[2019-03-02] MEDS: SYMBICORT 160-4.5 MCG INHALER INHALATION PRN (08:52)
[2019-03-02] MEDS: FUROSEMIDE 10 MG/ML 2 ML VIAL IV SCH ×2 (09:09→20:03)
[2019-03-02] MEDS: METOPROLOL TARTRATE 25 MG TAB PO SCH ×2 (09:09→20:03)
[2019-03-02] MEDS: ASPIRIN 325 MG TAB PO SCH (09:09)
[2019-03-02] MEDS: SPIRONOLACTONE 25 MG TAB PO SCH (09:09)
--- NOTE | 2019-03-02 09:14 | P.CRDCN ---
History of Present Illness Consult date: 03/02/19 History of present illness: This is a 73-year-old gentleman with history of ischemic heart disease and aortic stenosis, status post CABG and also aortic valve replacement with tissue valve. Patient also has hypertension, dyslipidemia and COPD. Post CABG, patient had a cardiac catheterization and was found to have total occlusion of the ongoing vein grafts with patent BELTRAN graft to the LAD. The circumflex has a proximal lesion which was unprotected and had stent placement of the left main and circumflex. His ejection fraction on recent admission was noted to be in the range of 20-25%. Patient is now admitted to the hospital with increasing chest pains and shortness of breath. This has been going on for the last 8 days. He was having similar chest pain that he had prior to the stenting of the circumflex. A chest x-ray showed cardiac megaly and probably mild CHF. His cardiac enzymes showed elevation of troponin size to possible non-STEMI. His EKG showed a sinus rhythm with intraventricular conduction delay consistent with left bundle-branch block pattern. Patient had occasional to frequent APCs. His proBNP is elevated. It appears that most probably has a progression of ischemic heart disease. It also paced. Patient hasn't ischemic and nonischemic cardiomyopathy. He may benefit from biventricular pacemaker with ICD. Patient may need cardiac catheterization to assess and CVAs any progression of the ischemic heart disease especially in-stent stenosis involving the left main. Review of Systems As per the chart Past Medical History Past Medical History: Asthma, Coronary Artery Disease (CAD), Chest Pain / Angina, Heart Failure, COPD, GERD/Reflux, Hyperlipidemia, Hypertension, Osteoarthritis (OA) Additional Past Medical History / Comment(s): Arthritis in fingers, gout bilateral feet toes, past SBO/incarcerated R upper quadrant ventral incisional hernia with surgery. History of Any Multi-Drug Resistant Organisms: None Reported Date of last positivie culture/infection: 2007 MDRO Source:: SURGICAL INCISION Past Surgical History: Appendectomy, Cardiac Valve Replacement, Cholecystectomy, Coronary Bypass/CABG, Heart Catheterization, Heart Catheterization With Stent, Hernia Repair Additional Past Surgical History / Comment(s): 01/2016 aortic valve replacement with triple bypass, 2017 PCI with stents, R upper quadrant ventral incisional hernia repair, R ankle surgery with rods/pins, exploratory laparotomy while in [place]-pt doesn't recall what was found, colonoscopy, bilateral cataract removals/lens implants. Past Anesthesia/Blood Transfusion Reactions: No Reported Reaction Date of Last Stent Placement:: 03/22/17 Past Psychological History: Anxiety, PTSD Smoking Status: Former smoker Past Alcohol Use History: None Reported Past Drug Use History: None Reported - Past Family History Father Family Medical History: Myocardial Infarction ([place]) Additional Family Medical History / Comment(s): CABG. Father had a MN at the age of 72 yrs. Father at the age of 85 yrs. Mother Family Medical History: Myocardial Infarction ([place]) Additional Family Medical History / Comment(s): CABG. Mother had a MN in her 70s. She lived to be 88yrs old. Medications and Allergies Home Medications Medication Instructions Recorded Confirmed Type Albuterol Sulfate [Proair Hfa] 2 puff INHALATION RT-QID PRN 01/27/16 03/01/19 History Budesonide-Formot 160-4.5 Mcg 2 puff INHALATION RT-BID PRN 01/27/16 03/01/19 History [Symbicort 160-4.5 Mcg Inhaler] Tiotropium [place] [Spiriva] 1 puff INHALATION RT-DAILY 01/27/16 03/01/19 History Metoprolol Tartrate [Lopressor] 25 mg PO BID #30 tab 02/03/16 03/01/19 Rx Allopurinol [Zyloprim] 100 mg PO HS PRN 01/04/17 03/01/19 History Lisinopril [Zestril] 5 mg PO HS 01/04/17 03/01/19 History Albuterol Nebulized [Ventolin 2.5 mg INHALATION Q4H PRN 03/19/17 03/01/19 History Nebulized] Omeprazole [PriLOSEC] 40 mg PO AC-BRKFST 03/19/17 03/01/19 History Pravastatin Sodium [Pravachol] 10 mg PO HS 03/19/17 03/01/19 History Sildenafil Citrate [Viagra] 100 mg PO DIRECTED PRN 03/19/17 03/01/19 History Aspirin EC [Ecotrin Low Dose] 81 mg PO DAILY 08/29/18 03/01/19 History Spironolactone [Aldactone] 25 mg PO DAILY #30 tab 09/01/18 03/01/19 Rx Furosemide [Lasix] 40 mg PO BID 09/18/18 03/01/19 History Clopidogrel [Plavix] 75 mg PO HS 09/19/18 03/01/19 History Allergies Allergy/AdvReac Type Severity Reaction Status Date / Time levofloxacin [From Levaquin] AdvReac Unknown Verified 03/01/19 15:17 Physical Exam Vitals: Vital Signs Temp Pulse Pulse Resp BP BP Pulse Ox 03/02/19 08:53 64 03/02/19 03:39 98.4 F 53 L 19 97/66 97 03/02/19 00:00 98.4 F 82 18 87/53 96 03/01/19 20:15 97.6 F 81 18 104/63 03/01/19 20:10 82 19 03/01/19 17:59 101 H 19 107/86 98 03/01/19 17:06 98.3 F 102 H 19 106/73 95 03/01/19 17:02 98.0 F 76 16 119/65 97 03/01/19 15:52 110 H 03/01/19 15:36 101 H 03/01/19 14:45 99.0 F 110 H 20 126/77 97 Intake and Output 03/01/19 03/02/19 03/02/19 22:59 06:59 14:59 Intake Total 381.857 Output Total 750 Balance -368.143 Intake: Intake, IV Titration 141.857 Amount Heparin Sod,Pork in 0.45% 61.857 NaCl 25,000 unit In 0.45 % NaCl 1 250ml.bag @ 8.3 UNITS/KG/HR 9.977 mls/hr IV .Q24H DEANDRA Rx#: [id number] Sodium Chloride 0.9% 1, 80 000 ml @ 20 mls/hr IV . Q24H DEANDRA Rx#:[id number] Oral 240 Output: Urine 750 Other: Voiding Method Urinal # Voids 3 GENERAL EXAM: Patient is alert and oriented and appears to be in mild to moderate distress HEENT: Normocephalic. Normal reaction of pupils, equal size, normal range of extraocular motion. No erythema or exudates in the throat. NECK: No masses, no nuchal rigidity. CHEST: No chest wall deformity. LUNGS: Diminished breath sounds with a few wheezes HEART: S1 and S2 normal with no audible mumurs or gallops. Regular rhythm, femorals equal on both sides.. ABDOMEN: No hepatosplenomegaly, normal bowel sounds, no guarding or rigidity. SKIN: No rashes CENTRAL NERVOUS SYSTEM: No focal deficits. EXTREMITIES: No cyanosis, clubbing or edema. Results 03/02/19 04:09 03/02/19 04:09 Cardiac Enzymes 03/01/19 03/01/19 03/01/19 Range/Units 15:07 15:07 21:40 AST 55 (17-59) U/L Troponin I 2.370 H* 1.490 H* (0.000-0.034) ng/mL 03/02/19 Range/Units 04:09 AST (17-59) U/L Troponin I 1.080 H* (0.000-0.034) ng/mL Coagulation 03/01/19 03/01/19 03/02/19 Range/Units 15:07 21:40 04:09 PT 11.8 (9.0-12.0) sec APTT 26.5 34.5 H 35.8 H (22.0-30.0) sec Lipids 03/02/19 Range/Units 04:09 Triglycerides 105 (<150) mg/dL Cholesterol 188 (<200) mg/dL HDL Cholesterol 19 L (40-60) mg/dL CBC 03/01/19 03/02/19 Range/Units 15:07 04:09 WBC 13.0 H 9.2 (3.8-10.6) k/uL RBC 4.19 L 3.98 L (4.30-5.90) m/uL Hgb 12.2 L 11.6 L (13.0-17.5) gm/dL Hct 37.0 L 35.4 L (39.0-53.0) % Plt Count 247 218 (150-450) k/uL Comprehensive Metabolic Panel 03/01/19 03/02/19 Range/Units 15:07 04:09 Sodium 138 137 (137-145) mmol/L Potassium 4.1 4.6 (3.5-5.1) mmol/L Chloride 102 103 (98-107) mmol/L Carbon Dioxide 25 24 (22-30) mmol/L BUN 21 H 26 H (9-20) mg/dL Creatinine 0.92 0.87 (0.66-1.25) mg/dL Glucose 119 H 174 H (74-99) mg/dL Calcium 9.6 9.1 (8.4-10.2) mg/dL AST 55 (17-59) U/L ALT 60 (21-72) U/L Alkaline Phosphatase 154 H (38-126) U/L Total Protein 6.8 (6.3-8.2) g/dL Albumin 3.4 L (3.5-5.0) g/dL Current Medications Generic Name Dose Route Start Last Admin Trade Name Freq PRN Reason Stop Dose Admin Albuterol Sulfate 2.5 mg 03/01/19 20:10 Ventolin Nebulized INHALATION Q4H PRN sob Allopurinol 100 mg 03/01/19 20:10 Zyloprim PO HS PRN gout Aspirin 325 mg 03/02/19 09:00 Aspirin PO DAILY DEANDRA Bisacodyl 10 mg 03/01/19 20:12 Dulcolax PO DAILY PRN Constipation Budesonide/Formoterol Fumarate 2 puff 03/01/19 20:10 03/02/19 08:52 Symbicort 160-4.5 Mcg Inhaler INHALATION 2 puff RT-BID PRN Administration Dyspnea Clopidogrel Bisulfate 75 mg 03/01/19 21:00 03/01/19 20:50 Plavix PO 75 mg HS DEANDRA Administration Furosemide 20 mg 03/02/19 09:00 Lasix IV Q12HR DEANDRA Heparin Sodium (Porcine) 0 unit 03/01/19 16:10 Heparin IV Q6HR PRN Low PTT Protocol Heparin Sodium/Sodium Chloride 250 mls @ 9.977 mls/hr 03/01/19 16:15 03/01/19 23:10 25,000 unit/ Sodium Chloride IV 11.3 units/kg/hr .Q24H DEAN[facility]A 13.583 mls/hr Titration Protocol 8.3 UNITS/KG/HR Sodium Chloride 1,000 mls @ 20 mls/hr 03/01/19 20:15 03/01/19 20:53 Saline 0.9% IV 20 mls/hr .Q24H DEANDRA Administration Ipratropium [place] 0.5 mg 03/02/19 08:00 03/02/19 08:52 Atrovent Nebulized INHALATION 0.5 mg RT-QID DEANDRA Administration Lisinopril 5 mg 03/01/19 21:00 03/01/19 20:50 Zestril PO Not Given HS DEANDRA Metoprolol Tartrate 25 mg 03/01/19 21:00 03/01/19 20:50 Lopressor PO 25 mg BID DEANDRA Administration Nitroglycerin 0.4 mg 03/01/19 16:04 Nitrostat SUBLINGUAL Q5M PRN Chest Pain Pantoprazole Sodium 40 mg 03/02/19 07:30 03/02/19 06:41 Protonix PO Not Given AC-BRKFST DEANDRA Pravastatin Sodium 10 mg 03/01/19 21:00 03/01/19 20:50 Pravachol PO 10 mg HS DEANDRA Administration Spironolactone 25 mg 03/02/19 09:00 Aldactone PO DAILY DEANDRA Temazepam 30 mg 03/01/19 20:11 03/02/19 00:11 Restoril PO 30 mg HS PRN Administration Insomnia Intake and Output 03/01/19 03/02/19 03/02/19 22:59 06:59 14:59 Intake Total 381.857 Output Total 750 Balance -368.143 Intake: Intake, IV Titration 141.857 Amount Heparin Sod,Pork in 0.45% 61.857 NaCl 25,000 unit In 0.45 % NaCl 1 250ml.bag @ 8.3 UNITS/KG/HR 9.977 mls/hr IV .Q24H [facility] Rx#: [id number] Sodium Chloride 0.9% 1, 80 000 ml @ 20 mls/hr IV . Q24H DEANDRA Rx#:[id number] Oral 240 Output: Urine 750 Other: Voiding Method Urinal # Voids 3 03/02/19 04:09 03/02/19 04:09 EKG Interpretations (text) Sinus rhythm with interventricular conduction delay consistent with left bundle- branch block with a QRS of about 138 ms Assessment and Plan (1) Acute on chronic systolic CHF (congestive heart failure) Current Visit: Yes Status: Acute Code(s): I50.23 - ACUTE ON CHRONIC SYSTOLIC (CONGESTIVE) HEART FAILURE SNOMED Code(s): 553301413 (2) NSTEMI (non-ST elevated myocardial infarction) Current Visit: Yes Status: Acute Code(s): I21.4 - NON-ST ELEVATION (NSTEMI) MYOCARDIAL INFARCTION SNOMED Code(s): 92286190 (3) Status post aortic valve replacement Current Visit: Yes Status: Acute Code(s): Z95.2 - PRESENCE OF PROSTHETIC HEART VALVE SNOMED Code(s): 0237429573987 (4) Cardiomyopathy Current Visit: Yes Status: Acute Code(s): I42.9 - CARDIOMYOPATHY, UNSPECIFIED SNOMED Code(s): 21624955 (5) COPD (chronic obstructive pulmonary disease) Current Visit: Yes Status: Acute Code(s): J44.9 - CHRONIC OBSTRUCTIVE PULMONARY DISEASE, UNSPECIFIED SNOMED Code(s): 22489174 Plan: I'll continue maximal medical therapy. We'll continue with heparin, nitrates, diuretics and beta blockers. We'll proceed with cardiac catheterization to see if there is any progression of ischemic heart disease. Patient will also benefit from biventricular AICD. Prognosis is guarded
[2019-03-02] MEDS: HEPARIN SOD,PORK IN 0.45% NACL 25,000 UNIT in 0.45% NACL 1 250ML.BAG IV SCH ×2 (09:17→16:28)
[2019-03-02] MEDS ORDERED: SODIUM CHLORIDE 0.9% 1,000 ML in EMPTY BAG 1 BAG IV ONE (09:54)
--- NOTE | 2019-03-02 13:01 | ECHOF ---
Referral Reason:nstemi MEASUREMENTS -------- HEIGHT: 170.2 cm WEIGHT: 120.2 kg BP: 97/66 RVIDd: 3.6 cm (< 3.3) IVSd: 1.6 cm (0.6 - 1.1) LVIDd: 5.1 cm (3.9 - 5.3) LVPWd: 1.6 cm (0.6 - 1.1) IVSs: 1.9 cm LVIDs: 4.3 cm LVPWs: 2.2 cm LA Diam: 3.9 cm (2.7 - 3.8) LAESV Index (A-L): 38.49 ml/m Ao Diam: 2.9 cm (2.0 - 3.7) MV EXCURSION: 18.807 mm (> 18.000) MV EF SLOPE: 54 mm/s (70 - 150) EPSS: 2.3 cm AV maxP.51 mmHg AV meanP.66 mmHg RAP: 5.00 mmHg RVSP: 42.93 mmHg FINDINGS -------- Atrial fibrillation. This was a technically difficult study with suboptimal views. The left ventricular size is normal. There is moderate concentric left ventricular hypertrophy. T here is severe global hypokinesis of LV . Overall left ventricular systolic function is severely im paired with, an EF between 20 - 25 %. The right ventricle is mildly enlarged. LA is moderately dilated 34-39 ml/m2 The right atrial size is normal. 5 ml of Lumason was utilized for enhancement of images. Interatrial and interventricular septum intact. Peak/mean gradient across the Aortic Valve is 35.51mmHg / 20.66mmHg. Normally functioning bioprosth etic valve. Mild mitral annular calcification present. Moderate mitral regurgitation is present. Mild tricuspid regurgitation present. There is mild pulmonary hypertension. The right ventricular systolic pressure, as measured by Doppler, is 42.93mmHg. Trace/mild (physiologic) pulmonic regurgitation. The aortic root size is normal. Normal inferior vena cava with normal inspiratory collapse consistent with estimated right atrial pre ssure of 5 mmHg. The inferior vena cava is mildly dilated. There is no pericardial effusion. CONCLUSIONS -------- 1. Atrial fibrillation. 2. This was a technically difficult study with suboptimal views. 3. The left ventricular size is normal. 4. There is moderate concentric left ventricular hypertrophy. 5. There is severe global hypokinesis of LV . 6. Overall left ventricular systolic function is severely impaired with, an EF between 20 - 25 %. 7. The right ventricle is mildly enlarged. 8. LA is moderately dilated 34-39 ml/m2 9. 5 ml of Lumason was utilized for enhancement of images. 10. Peak/mean gradient across the Aortic Valve is 35.51mmHg / 20.66mmHg. 11. Normally functioning bioprosthetic valve. 12. Mild mitral annular calcification present. 13. Moderate mitral regurgitation is present. 14. Mild tricuspid regurgitation present. 15. There is mild pulmonary hypertension. 16. Trace/mild (physiologic) pulmonic regurgitation. 17. The aortic root size is normal. 18. Normal inferior vena cava with normal inspiratory collapse consistent with estimated right atrial pressure of 5 mmHg. 19. The inferior vena cava is mildly dilated. 20. There is no pericardial effusion. LEASE OUT MAN: Adriane Summers RDCS
[2019-03-02] MEDS: CLOPIDOGREL 75 MG TAB PO SCH (20:02)
[2019-03-02] MEDS: PRAVASTATIN SODIUM 20 MG TAB PO SCH (20:02)
[2019-03-02] MEDS: LISINOPRIL 5 MG TAB PO SCH (20:03)
[2019-03-03 06:12] LABS: Glucose,Whole Blood 132 mg/dL (75-99)
[2019-03-03] MEDS: METOPROLOL TARTRATE 25 MG TAB PO SCH ×2 (06:14→20:03)
[2019-03-03] MEDS: ASPIRIN 325 MG TAB PO SCH (06:14)
[2019-03-03] MEDS: PANTOPRAZOLE 40 MG TABLET PO SCH (06:14)
[2019-03-03] MEDS: SODIUM CHLORIDE 0.9% 1,000 ML IV SCH ×3 (06:19→15:35)
[2019-03-03 07:08] LABS: Mean Platelet Volume 8.5; Platelet Count 269 k/uL (150-450)
[2019-03-03] MEDS: IPRATROPIUM 0.5 MG/2.5 ML NEBU INHALATION SCH ×4 (08:31→19:03)
[2019-03-03] MEDS: SYMBICORT 160-4.5 MCG INHALER INHALATION PRN (08:32)
[2019-03-03] MEDS ORDERED: IV FLUID CONTINUATION 750 ML IV ONE (09:30)
[2019-03-03] MEDS: MIDAZOLAM PF (FBP) 2 MG/2 ML VIAL IVP ONE ×2 (09:47→09:50)
[2019-03-03] MEDS ORDERED: LIDOCAINE 1% INJ 10MG/ML (20 ML MDV) SQ ONE (09:52)
[2019-03-03] MEDS ORDERED: HYDROmorphone 1 MG/ML 1 ML SYRINGE IVP ONE (10:00)
[2019-03-03] MEDS ORDERED: IOPAMIDOL-370 125ML BTL INJ ONE (10:18)
[2019-03-03] MEDS ORDERED: RX INFO: IV CONTRAST WAS GIVEN 1 EACH MISC MISCELLANE PRN (10:58)
[2019-03-03 12:00] LABS: Glucose,Whole Blood 107 mg/dL (75-99)
--- NOTE | 2019-03-03 12:47 | PCN ---
Date of Procedure: 03/03/19 Operative Findings: CARDIAC CATHETERIZATION PERFORMING PHYSICIAN: Anant Juarez MD, RPVI PROCEDURE PERFORMED: 1. Selective right and left coronary angiogram 2. Left heart catheterization INDICATION: This is a pleasant 44-year-old gentleman with known history of CAD and prior coronary artery that is grafting as well as a stenting with the last heart catheterization was performed in September 2018 revealing severe in-stent restenosis involving the distal left main as well as proximal left circumflex as well as chronic total occlusion of the RCA as well as patent BELTRAN to LAD. At that point the patient underwent stenting of the left main to left circumflex with a good angiographic results. This time he was admitted to the hospital with a chest pain or shortness of breath and ruled in for acute non-ST patient myocardial infarction. He was seen by Dr. Madera who recommended proceeding with a heart catheterization. COMPLICATION: Right common femoral artery APPROACH: Right common femoral artery LEVEL OF SEDATION: Moderate with a sedation length of 25 minutes PROCEDURE DESCRIPTION: After obtaining an informed consent, the patient was brought to cardiac drop crew laborer. Local anesthesia was performed using lidocaine subcutaneously. The right common femoral artery was cannulated using Seldinger technique, the guidewire passed easily, following that we advanced a 6 [place]ik sheath dilator assembly, the wire and dilator were removed and sheath was flushed. Selective right and left coronary angiogram using a 6-Tajik JR4 and JL catheters. The BELTRAN into LAD angiogram was performed using JR4 catheter. The procedure was completed there was no complication. SELECTIVE CORONARY ANGIOGRAM: The right coronary artery: Is chronically occluded in the midportion. Left main: The distal left main is a stented and the stent is patent. The left circumflex: The proximal left circumflex is a stented and the stent is patent. The left anterior descending artery: The proximal LAD appears to have a lesion in the range of 70%. I can see competitive flow from the BELTRAN. CORONARY BYPASSES ANGIOGRAM: The BELTRAN into LAD CONCLUSION: #1 patent stent in the distal left main to proximal left circumflex #2 patent BELTRAN into LAD #3 chronic total occlusion of the RCA POSTPROCEDURE MANAGEMENT: #1 maximize medical treatment #2 follow-up with the patient MARTY
[2019-03-03] MEDS: SPIRONOLACTONE 25 MG TAB PO SCH (12:55)
[2019-03-03] MEDS: FUROSEMIDE 10 MG/ML 2 ML VIAL IV SCH (12:55)
--- NOTE | 2019-03-03 16:22 | P.CRDCN ---
<Chanel Leblanc - Last Filed: 03/03/19 16:21> History of Present Illness History of present illness: This is Chanel Leblanc PA-C dictating an EP consult on this patient The patient was interviewed and examined by me as well as by Dr. Ho Case discussed with Dr. Ho and he agrees with the plan of care IMPRESSION / ASSESSMENT: Acute on chronic systolic heart failure, class 3 Ischemic cardiomyopathy, most echo showing EF 20-25% Left bundle branch block, QRS width and 140 ms, QRS with has increased over the last year Nonsustained ventricular tachycardia on telemetry CAD status post CABG and stenting COPD Aortic stenosis status post aortic valve replacement Hypertension Dyslipidemia PLAN: Check TSH Patient would benefit from biventricular ICD but given his breathing, he would not tolerate the procedure well right now Start Lasix drip and maximize medical therapy, plan for biventricular ICD placement this if patient's breathing improves Increase pravastatin to 20 mg daily HPI Patient is a 73-year-old male with a past medical history of CAD status post CABG, ischemic cardiomyopathy, COPD, aortic stenosis status post aortic valve replacement, hypertension, dyslipidemia who presented with complaints of worsening shortness of breath. For the last month she has had worsening shortness of breath on exertion. States he is not even able to walk from his house to his pole [place] which is about 75 feet without stopping a few times to catch his breath. He has also had worsening orthopnea, sleeps with 3 pillows. Denies any chest pain or palpitations. Does occasionally get dizzy, no syncope. Upon admission chest x-ray showed no active cardiopulmonary disease. EKG showed sinus mechanism with left bundle branch block. Troponin was elevated. Echocardiogram showed severe global headache hypokinesis, EF 20-25% , moderate MR. Patient underwent a coronary angiogram showing occluded RCA, patent stent in the left main, patent stent in the proximal left circumflex, patent BELTRAN to the LAD. Patient was noted to have a few brief runs of nonsustained ventricular tachycardia of different morphologies on telemetry during this admission. We were consulted to evaluate the patient for possible biventricular ICD placement. Patient seen and examined resting in bed. States his breathing has improved somewhat but he still short of breath. Denies chest pain, palpitations, d izziness or lightheadedness. ROS: No fevers, chills or rigors, no cough, phlegm or expectoration, no nausea, vomiting or diarrhea, no hematuria, dysuria, no musculoskeletal complaints, no strokes or seizures, no skin lesions. EXAMINATION: Patient is afebrile, pulse 100, respirations 18, blood pressure 111/77, oxygen saturation 98% on 2 L nasal cannula Patient seen and examined resting in bed, in no acute distress Breath sounds reduced bilaterally, diffuse expiratory wheezing Heart sounds are soft, regular, no obvious murmurs, no clear S3 gallop External jugular veins visible, unable to assess JVD due to body habitus 1+ pitting edema bilaterally REVIEW OF LABS, ECG & MEDICAL DATA WBC 9.2, hemoglobin 11.6, platelets 218, potassium 4.6, BUN 26, creatinine 0.83, magnesium 1.8 Troponin 1.08, 1.049, 2.37 Total cholesterol 188, LDL 148, triglycerides 105, HDL 19 Past Medical History Past Medical History: Asthma, Coronary Artery Disease (CAD), Chest Pain / Angina, Heart Failure, COPD, GERD/Reflux, Hyperlipidemia, Hypertension, Os teoarthritis (OA) Additional Past Medical History / Comment(s): Arthritis in fingers, gout bilateral feet toes, past SBO/incarcerated R upper quadrant ventral incisional hernia with surgery. History of Any Multi-Drug Resistant Organisms: None Reported Date of last positivie culture/infection: 2007 MDRO Source:: SURGICAL INCISION Past Surgical History: Appendectomy, Cardiac Valve Replacement, Cholecystectomy, Coronary Bypass/CABG, Heart Catheterization, Heart Catheterization With Stent, Hernia Repair Additional Past Surgical History / Comment(s): 01/2016 aortic valve replacement with triple bypass, 2017 PCI with stents, R upper quadrant ventral incisional hernia repair, R ankle surgery with rods/pins, exploratory laparotomy while in [place]-pt doesn't recall what was found, colonoscopy, bilateral cataract removals/lens implants. Past Anesthesia/Blood Transfusion Reactions: No Reported Reaction Date of Last Stent Placement:: 03/22/17 Past Psychological History: Anxiety, PTSD Smoking Status: Former smoker Past Alcohol Use History: None Reported Past Drug Use History: None Reported - Past Family History Father Family Medical History: Myocardial Infarction (NC) Additional Family Medical History / Comment(s): CABG. Father had a NC at the age of 72 yrs. Father at the age of 85 yrs. Mother Family Medical History: Myocardial Infarction (NC) Additional Family Medical History / Comment(s): CABG. Mother had a NC in her 70s. She lived to be 88yrs old. Medications and Allergies Home Medications Medication Instructions Recorded Confirmed Type Albuterol Sulfate [Proair Hfa] 2 puff INHALATION RT-QID PRN 01/27/16 03/01/19 History Budesonide-Formot 160-4.5 Mcg 2 puff INHALATION RT-BID PRN 01/27/16 03/01/19 History [Symbicort 160-4.5 Mcg Inhaler] Tiotropium Mobile [Spiriva] 1 puff INHALATION RT-DAILY 01/27/16 03/01/19 History Metoprolol Tartrate [Lopressor] 25 mg PO BID #30 tab 02/03/16 03/01/19 Rx Allopurinol [Zyloprim] 100 mg PO HS PRN 01/04/17 03/01/19 History Lisinopril [Zestril] 5 mg PO HS 01/04/17 03/01/19 History Albuterol Nebulized [Ventolin 2.5 mg INHALATION Q4H PRN 03/19/17 03/01/19 History Nebulized] Omeprazole [PriLOSEC] 40 mg PO AC-BRKFST 03/19/17 03/01/19 History Pravastatin Sodium [Pravachol] 10 mg PO HS 03/19/17 03/01/19 History Sildenafil Citrate [Viagra] 100 mg PO DIRECTED PRN 03/19/17 03/01/19 History Aspirin EC [Ecotrin Low Dose] 81 mg PO DAILY 08/29/18 03/01/19 History Spironolactone [Aldactone] 25 mg PO DAILY #30 tab 09/01/18 03/01/19 Rx Furosemide [Lasix] 40 mg PO BID 09/18/18 03/01/19 History Clopidogrel [Plavix] 75 mg PO HS 09/19/18 03/01/19 History Allergies Allergy/AdvReac Type Severity Reaction Status Date / Time levofloxacin [From Levaquin] AdvReac Unknown Verified 03/01/19 15:17 Physical Exam Vitals: Vital Signs Temp Pulse Pulse Resp BP BP Pulse Ox 03/03/19 16:12 18 03/03/19 16:07 100 18 111/77 98 03/03/19 15:50 96 03/03/19 15:45 88 03/03/19 13:44 92/62 03/03/19 12:44 89 18 110/64 97 03/03/19 12:18 18 03/03/19 12:14 89 18 97/63 96 03/03/19 11:56 92 03/03/19 11:51 96 03/03/19 11:44 96/67 03/03/19 11:29 99 18 93/57 95 03/03/19 11:14 89/62 03/03/19 11:10 18 96/55 93 L 03/03/19 09:20 79 125/52 03/03/19 08:40 96 03/03/19 08:34 92 03/03/19 07:53 98.9 F 102 H 18 153/116 97 03/03/19 04:00 97.7 F 94 18 123/58 98 03/02/19 23:48 98.0 F 62 17 88/55 96 03/02/19 20:00 97.9 F 74 18 135/69 97 03/02/19 19:19 96 03/02/19 19:03 98 03/02/19 16:31 76 03/02/19 16:22 72 98 Intake and Output 03/03/19 03/03/19 03/03/19 06:59 14:59 22:59 Intake Total 256 610 Output Total 1100 Balance -844 610 Intake: IV 76 250 Heparin Sod,Pork in 0.45% 76 150 NaCl 25,000 unit In 0.45 % NaCl 1 250ml.bag @ 8.3 UNITS/KG/HR 9.977 mls/hr IV .Q24H [facility] Rx#: [id number] Intake, IV Titration 180 Amount Sodium Chloride 0.9% 1, 180 000 ml @ 20 mls/hr IV . Q24H [facility] Rx#:[id number] Oral 360 Output: Urine 1100 Other: Voiding Method Urinal Weight 121.7 kg Results 03/03/19 05:48 03/02/19 04:09 Coagulation 03/02/19 Range/Units 21:57 APTT 53.7 H (22.0-30.0) sec CBC 03/03/19 Range/Units 05:48 Plt Count 269 (150-450) k/uL Current Medications Generic Name Dose Route Start Last Admin Trade Name Freq PRN Reason Stop Dose Admin Albuterol Sulfate 2.5 mg 03/01/19 20:10 Ventolin Nebulized INHALATION Q4H PRN sob Allopurinol 100 mg 03/01/19 20:10 Zyloprim PO HS PRN gout Aspirin 325 mg 03/02/19 09:00 03/03/19 06:14 Aspirin PO 325 mg DAILY [facility] Administration Bisacodyl 10 mg 03/01/19 20:12 Dulcolax PO DAILY PRN Constipation Budesonide/Formoterol Fumarate 2 puff 03/01/19 20:10 03/03/19 08:32 Symbicort 160-4.5 Mcg Inhaler INHALATION 2 puff RT-BID PRN Administration Dyspnea Clopidogrel Bisulfate 75 mg 03/01/19 21:00 03/02/19 20:02 Plavix PO 75 mg HS DEAN[facility]A Administration Sodium Chloride 1,000 mls @ 20 mls/hr 03/01/19 20:15 03/03/19 15:35 Saline 0.9% IV Not Given .Q24H [facility] Sodium Chloride 1,000 mls @ 75 mls/hr 03/03/19 11:00 03/03/19 11:15 Saline 0.9% IV 75 mls/hr .[id number] [facility] Administration Furosemide 100 mg/ Sodium 100 mls @ 10 mls/hr 03/03/19 16:00 Chloride IV .Q10H [facility] 10 MG/HR Ipratropium Mobile 0.5 mg 03/02/19 08:00 03/03/19 15:43 Atrovent Nebulized INHALATION 0.5 mg RT-QID [facility] Administration Lisinopril 5 mg 03/01/19 21:00 03/02/19 20:03 Zestril PO 5 mg HS [facility] Administration Metoprolol Tartrate 25 mg 03/01/19 21:00 03/03/19 06:14 Lopressor PO 25 mg BID [facility] Administration Miscellaneous Information 1 each 03/03/19 10:58 Rx Info: Iv Contrast Was Given MISCELLANE 03/05/19 10:59 DAILY PRN Per Protocol Nitroglycerin 0.4 mg 03/01/19 16:04 Nitrostat SUBLINGUAL Q5M PRN Chest Pain Pantoprazole Sodium 40 mg 03/02/19 07:30 03/03/19 06:14 Protonix PO 40 mg AC-BRKFST [facility] Administration Pravastatin Sodium 20 mg 03/03/19 21:00 Pravachol PO HS [facility]AN[facility]A Spironolactone 25 mg 03/02/19 09:00 03/03/19 12:55 Aldactone PO Not Given DAILY [facility] Temazepam 30 mg 03/01/19 20:11 03/02/19 00:11 Restoril PO 30 mg HS PRN Administration Insomnia Intake and Output 03/03/19 03/03/19 03/03/19 06:59 14:59 22:59 Intake Total 256 610 Output Total 1100 Balance -844 610 Intake: IV 76 250 Heparin Sod,Pork in 0.45% 76 150 NaCl 25,000 unit In 0.45 % NaCl 1 250ml.bag @ 8.3 UNITS/KG/HR 9.977 mls/hr IV .Q24H [facility] Rx#: [id number] Intake, IV Titration 180 Amount Sodium Chloride 0.9% 1, 180 000 ml @ 20 mls/hr IV . Q24H [facility] Rx#:[id number] Oral 360 Output: Urine 1100 Other: Voiding Method Urinal Weight 121.7 kg 03/03/19 05:48 03/02/19 04:09 <Timmy Ho - Last Filed: 03/04/19 08:23> History of Present Illness History of present illness: Patient interviewed and examined along with [facility] Significant orthopnea I plan to start IV Lasix drip and I expect that his BUN and creatinine may increase after cath but his orthopnea would have to improve before proceeding with a biventricular ICD I suspect I would have to use general anesthesia in this gentleman since he has significant obesity and especially Central obesity Discussed with the nurse Prepare for by mental ICD on only if his breathing and orthopnea improve and is able to lie flat comfortably Otherwise we will different detailed his acute aspiration of heart failure improves Physical Exam Vitals: Vital Signs Temp Pulse Pulse Resp BP BP Pulse Ox 03/04/19 02:14 97.0 F L 107 H 19 98/45 96 03/03/19 23:48 97.7 F 98 18 134/64 96 03/03/19 20:00 98.1 F 115 H 20 105/57 96 03/03/19 19:14 90 03/03/19 19:04 88 03/03/19 16:12 18 03/03/19 16:07 100 18 111/77 98 03/03/19 15:50 96 03/03/19 15:45 88 03/03/19 13:44 92/62 03/03/19 12:44 89 18 110/64 97 03/03/19 12:18 18 03/03/19 12:14 89 18 97/63 96 03/03/19 11:56 92 03/03/19 11:51 96 03/03/19 11:44 96/67 03/03/19 11:29 99 18 93/57 95 03/03/19 11:14 89/62 03/03/19 11:10 18 96/55 93 L 03/03/19 09:20 79 125/52 03/03/19 08:40 96 03/03/19 08:34 92 Intake and Output 03/03/19 03/04/19 03/04/19 22:59 06:59 14:59 Intake Total 237 100 Output Total 400 400 Balance -163 -300 Intake: Intake, IV Titration 100 Amount Furosemide 100 mg In 100 Sodium Chloride 0.9% 90 ml @ 10 MG/HR 10 mls/hr IV .Q10H [facility] Rx#: [id number] Oral 237 Output: Urine 400 400 Other: Voiding Method Urinal Urinal Weight 120.8 kg Results 03/04/19 02:17 03/04/19 02:17 CBC 03/04/19 Range/Units 02:17 WBC 10.8 H (3.8-10.6) k/uL RBC 4.12 L (4.30-5.90) m/uL Hgb 11.7 L (13.0-17.5) gm/dL Hct 36.8 L (39.0-53.0) % Plt Count 234 (150-450) k/uL Comprehensive Metabolic Panel 03/04/19 Range/Units 02:17 Sodium 137 (137-145) mmol/L Potassium 4.1 (3.5-5.1) mmol/L Chloride 101 (98-107) mmol/L Carbon Dioxide 27 (22-30) mmol/L BUN 36 H (9-20) mg/dL Creatinine 1.39 H (0.66-1.25) mg/dL Glucose 131 H (74-99) mg/dL Calcium 9.0 (8.4-10.2) mg/dL Current Medications Generic Name Dose Route Start Last Admin Trade Name Freq PRN Reason Stop Dose Admin Albuterol Sulfate 2.5 mg 03/01/19 20:10 Ventolin Nebulized INHALATION Q4H PRN sob Allopurinol 100 mg 03/01/19 20:10 Zyloprim PO HS PRN gout Aspirin 325 mg 03/02/19 09:00 03/03/19 06:14 Aspirin PO 325 mg DAILY [facility] Administration Bisacodyl 10 mg 03/01/19 20:12 Dulcolax PO DAILY PRN Constipation Budesonide/Formoterol Fumarate 2 puff 03/01/19 20:10 03/03/19 08:32 Symbicort 160-4.5 Mcg Inhaler INHALATION 2 puff RT-BID PRN Administration Dyspnea Clopidogrel Bisulfate 75 mg 03/01/19 21:00 03/03/19 20:03 Plavix PO 75 mg HS [facility] Administration Furosemide 100 mg/ Sodium 100 mls @ 5 mls/hr 03/03/19 16:00 03/04/19 03:28 Chloride IV 10 mg/hr .Q20H [facility] 10 mls/hr Administration 5 MG/HR Ipratropium Mobile 0.5 mg 03/02/19 08:00 03/03/19 19:03 Atrovent Nebulized INHALATION 0.5 mg RT-QID [facility] Administration Lisinopril 5 mg 03/01/19 21:00 03/03/19 20:03 Zestril PO 5 mg HS [facility]AN[facility]A Administration Metoprolol Tartrate 25 mg 03/01/19 21:00 03/03/19 20:03 Lopressor PO 25 mg BID [facility]A Administration Miscellaneous Information 1 each 03/03/19 10:58 Rx Info: Iv Contrast Was Given MISCELLANE 03/05/19 10:59 DAILY PRN Per Protocol Nitroglycerin 0.4 mg 03/01/19 16:04 Nitrostat SUBLINGUAL Q5M PRN Chest Pain Pantoprazole Sodium 40 mg 03/02/19 07:30 03/04/19 06:38 Protonix PO 40 mg AC-BRKFST [facility] Administration Pravastatin Sodium 20 mg 03/03/19 21:00 03/03/19 20:03 Pravachol PO 20 mg HS [facility]AN[facility] Administration Spironolactone 25 mg 03/02/19 09:00 03/03/19 12:55 Aldactone PO Not Given DAILY [facility] Temazepam 30 mg 03/01/19 20:11 03/03/19 20:03 Restoril PO 30 mg HS PRN Administration Insomnia Intake and Output 03/03/19 03/04/19 03/04/19 22:59 06:59 14:59 Intake Total 237 100 Output Total 400 400 Balance -163 -300 Intake: Intake, IV Titration 100 Amount Furosemide 100 mg In 100 Sodium Chloride 0.9% 90 ml @ 10 MG/HR 10 mls/hr IV .Q10H [facility] Rx#: [id number] Oral 237 Output: Urine 400 400 Other: Voiding Method Urinal Urinal Weight 120.8 kg 03/04/19 02:17 03/04/19 02:17
[2019-03-03 16:51] LABS: Glucose,Whole Blood 131 mg/dL (75-99)
[2019-03-03] MEDS: FUROSEMIDE 100 MG in SODIUM CHLORIDE 0.9% 90 ML IV SCH (16:55)
[2019-03-03] MEDS: CLOPIDOGREL 75 MG TAB PO SCH (20:03)
[2019-03-03] MEDS: PRAVASTATIN SODIUM 20 MG TAB PO SCH (20:03)
[2019-03-03] MEDS: LISINOPRIL 5 MG TAB PO SCH (20:03)
[2019-03-03] MEDS: TEMAZEPAM 30 MG CAP PO PRN (20:03)
--- NOTE | 2019-03-03 23:11 | P.PN ---
Subjective Progress Note Date: 03/02/19 Principal diagnosis: Acute non-ST elevated MT Acute on chronic CHF Patient is a 73-year-old male with a known history of coronary artery disease status post CABG, history of PCI and recent cardiac catheterization with stent placement in September , severe coronary disease, chronic CHF with systolic dysfunction ejection fraction 20-25%, COPD possible underlying restrictive lung disease, paroxysmal atrial fibrillation and morbid obesity with BMI 41.5 and other multiple medical problems came to ER with complaints of shortness of breath, worsening for the past 10 days. Patient also having chest pain on and off and felt like tightness of the chest. Patient also says that his heart rate was increasing 100 at home. Patient is supposed to get pacemaker due to tachybradycardia in February 24 2019 but was postponed to 2018. Patient has been sleeping mostly for the past 1 week. Chest x-ray showed borderline cardiomegaly. Unchanged from prior study. EKG showed sinus tachycardia with premature ventricular complexes and left Atrial Enlargement. Troponin 2.37 and 1.49, WBC 13.0 BNP [id number] 03/02/2019 Patient is currently lying in the bed comfortably. Awake alert oriented 3. No complaints of chest pain. Shortness of breath improving. Cardiology is planning for cardiac catheterization tomorrow. Current medications reviewed. Objective - Vital Signs Vital signs: Vital Signs Temp 97.9 F 03/02/19 20:00 Pulse 74 03/02/19 20:00 Resp 18 03/02/19 20:00 BP 135/69 03/02/19 20:00 Pulse Ox 97 03/02/19 20:00 Intake & Output 03/02/19 03/02/19 03/03/19 06:59 18:59 06:59 Intake Total 381.857 599.533 Output Total 750 800 Balance -368.143 -200.467 Weight 120.202 kg Intake: IV 25 heparin 25 Intake, IV Titration 141.857 334.533 Amount Heparin Sod,Pork in 0.45% 61.857 234.533 NaCl 25,000 unit In 0.45 % NaCl 1 250ml.bag @ 8.3 UNITS/KG/HR 9.977 mls/hr IV .Q24H [facility] Rx#: [id number] Sodium Chloride 0.9% 1, 100 000 ml @ 100 mls/hr IV . Q10H [facility] Rx#:[id number] Sodium Chloride 0.9% 1, 80 000 ml @ 20 mls/hr IV . Q24H [facility] Rx#:[id number] Oral 240 240 Output: Urine 750 800 Other: Voiding Method Urinal Urinal # Voids 3 2 - Exam PHYSICAL EXAMINATION: Patient is lying in the bed comfortably, no acute distress, awake alert and oriented morbidly obese... HEENT: Normocephalic. Neck is supple. Pupils reactive. Nostrils clear. Oral cavity is moist. Ears reveal no drainage. Neck reveals no JVD, carotid bruits, or thyromegaly. CHEST EXAMINATION: Trachea is central. Symmetrical expansion. Bibasilar diminished air entry. Lung nolen clear to auscultation and percussion. CARDIAC: Normal S1, S2 with no gallops. No murmurs ABDOMEN: Soft. Obese, distended, Bowel sounds normal. No organomegaly. No abdominal bruits. Extremities: 2+ edema. No clubbing or cyanosis Neurologically awake, alert, oriented x3 with well-coordinated movements. No focal deficits noted Skin: No rash or skin lesions. Psychiatric: Coperative. Nonsuicidal Musculoskeletal: No joint swelling or deformity. Normal range of motion. - Labs CBC & Chem 7: 03/03/19 05:48 03/02/19 04:09 Labs: Abnormal Lab Results - Last 24 Hours (Table) 03/01/19 03/01/19 03/02/19 Range/Units 21:40 21:40 04:09 RBC (4.30-5.90) m/uL Hgb (13.0-17.5) gm/dL Hct (39.0-53.0) % Neutrophils # (1.3-7.7) k/uL Lymphocytes # (1.0-4.8) k/uL APTT 34.5 H (22.0-30.0) sec BUN (9-20) mg/dL Glucose (74-99) mg/dL Troponin I 1.490 H* 1.080 H* (0.000-0.034) ng/mL LDL Cholesterol, Calc (0-99) mg/dL HDL Cholesterol (40-60) mg/dL 03/02/19 03/02/19 03/02/19 Range/Units 04:09 04:09 04:09 RBC 3.98 L (4.30-5.90) m/uL Hgb 11.6 L (13.0-17.5) gm/dL Hct 35.4 L (39.0-53.0) % Neutrophils # 8.2 H (1.3-7.7) k/uL Lymphocytes # 0.7 L (1.0-4.8) k/uL APTT 35.8 H (22.0-30.0) sec BUN 26 H (9-20) mg/dL Glucose 174 H (74-99) mg/dL Troponin I (0.000-0.034) ng/mL LDL Cholesterol, Calc 148 H (0-99) mg/dL HDL Cholesterol 19 L (40-60) mg/dL 03/02/19 Range/Units 14:57 RBC (4.30-5.90) m/uL Hgb (13.0-17.5) gm/dL Hct (39.0-53.0) % Neutrophils # (1.3-7.7) k/uL Lymphocytes # (1.0-4.8) k/uL APTT 45.4 H (22.0-30.0) sec BUN (9-20) mg/dL Glucose (74-99) mg/dL Troponin I (0.000-0.034) ng/mL LDL Cholesterol, Calc (0-99) mg/dL HDL Cholesterol (40-60) mg/dL Assessment and Plan Assessment: Acute non-ST elevated MT with elevated troponin level. Shortness of breath due to acute on chronic CHF with systolic dysfunction. Ejection fraction 20-25%. Patient does have elevated BNP and increased leg swelling. Ischemic cardiomyopathy Possible underlying COPD with extrapulmonary restriction of lung. Paroxysmal atrial fibrillation. Severe Coronary artery disease and history of stent placement recently on September 2018 History of coronary artery bypass graft Hypertension Hyperlipidemia Osteoarthritis Chronic anxiety/PTSD Morbid obesity with BMI 41.5 History of aortic valve replacement due to severe aortic stenosis. History of gout Fatty infiltration of the liver Plan: Patient will be continued on aspirin, Plavix and statins, beta blockers. Started on Lasix 20 mg IV every 12 and continue with spinal lack tone. Continue with DuoNeb's and oxygen therapy as needed. Continue the home medications and follow up closely. Cardiology was consulted. Prognosis is guarded with multiple medical problems and comorbid conditions. Time with Patient: Greater than 30
--- NOTE | 2019-03-03 23:15 | P.PN ---
Subjective Progress Note Date: 03/03/19 Principal diagnosis: Acute non-ST elevated OK Acute on chronic CHF Patient is a 73-year-old male with a known history of coronary artery disease status post CABG, history of PCI and recent cardiac catheterization with stent placement in September , severe coronary disease, chronic CHF with systolic dysfunction ejection fraction 20-25%, COPD possible underlying restrictive lung disease, paroxysmal atrial fibrillation and morbid obesity with BMI 41.5 and other multiple medical problems came to ER with complaints of shortness of breath, worsening for the past 10 days. Patient also having chest pain on and off and felt like tightness of the chest. Patient also says that his heart rate was increasing 100 at home. Patient is supposed to get pacemaker due to tachybradycardia in February 24 2019 but was postponed to 2018. Patient has been sleeping mostly for the past 1 week. Chest x-ray showed borderline cardiomegaly. Unchanged from prior study. EKG showed sinus tachycardia with premature ventricular complexes and left Atrial Enlargement. Troponin 2.37 and 1.49, WBC 13.0 BNP [id number] 03/02/2019 Patient is currently lying in the bed comfortably. Awake alert oriented 3. No complaints of chest pain. Shortness of breath improving. Cardiology is planning for cardiac catheterization tomorrow. 03/03/2019 Patient is currently lying in the bed comfortably. Shortness of breath with ambulation. Patient is otherwise status post cardiac catheterization today loreto wed patent stents and maximal medical therapy was recommended. Patient also has been having nonsustained V. tach and a low ejection fraction. Currently being evaluated for AICD placement. EP was consulted. No complaints of chest pain. Continued on IV Lasix. No nausea vomiting or abdominal pain. No diarrhea or dysuria. Renal function is fairly stable. Current medications reviewed. Objective - Vital Signs Vital signs: Vital Signs Temp 98.1 F 03/03/19 20:00 Pulse 115 H 03/03/19 20:00 Resp 20 03/03/19 20:00 BP 105/57 03/03/19 20:00 Pulse Ox 96 03/03/19 20:00 Intake & Output 03/03/19 03/03/19 03/04/19 06:59 18:59 06:59 Intake Total 256 847 Output Total 1100 400 Balance -844 847 -400 Weight 121.7 kg Intake: IV 76 250 Heparin Sod,Pork in 0.45% 76 150 NaCl 25,000 unit In 0.45 % NaCl 1 250ml.bag @ 8.3 UNITS/KG/HR 9.977 mls/hr IV .Q24H [facility] Rx#: [id number] Intake, IV Titration 180 Amount Sodium Chloride 0.9% 1, 180 000 ml @ 20 mls/hr IV . Q24H [facility] Rx#:[id number] Oral 597 Output: Urine 1100 400 Other: Voiding Method Urinal Urinal - Exam PHYSICAL EXAMINATION: Patient is lying in the bed comfortably, no acute distress, awake alert and oriented morbidly obese... HEENT: Normocephalic. Neck is supple. Pupils reactive. Nostrils clear. Oral cavity is moist. Ears reveal no drainage. Neck reveals no JVD, carotid bruits, or thyromegaly. CHEST EXAMINATION: Trachea is central. Symmetrical expansion. Bibasilar diminished air entry. Lung nolen clear to auscultation and percussion. CARDIAC: Normal S1, S2 with no gallops. No murmurs ABDOMEN: Soft. Obese, distended, Bowel sounds normal. No organomegaly. No abdominal bruits. Extremities: 2+ edema. No clubbing or cyanosis Neurologically awake, alert, oriented x3 with well-coordinated movements. No focal deficits noted Skin: No rash or skin lesions. Psychiatric: Coperative. Nonsuicidal Musculoskeletal: No joint swelling or deformity. Normal range of motion. - Labs CBC & Chem 7: 03/03/19 05:48 03/02/19 04:09 Labs: Abnormal Lab Results - Last 24 Hours (Table) 03/02/19 03/03/19 03/03/19 Range/Units 21:57 06:10 11:40 APTT 53.7 H (22.0-30.0) sec POC Glucose (mg/dL) 132 H 107 H (75-99) mg/dL 03/03/19 Range/Units 16:35 APTT (22.0-30.0) sec POC Glucose (mg/dL) 131 H (75-99) mg/dL Assessment and Plan Assessment: Acute non-ST elevated OK with elevated troponin level. Shortness of breath due to acute on chronic CHF with systolic dysfunction. Ejection fraction 20-25%. Patient does have elevated BNP and increased leg swelling. Ischemic cardiomyopathy Possible underlying COPD with extrapulmonary restriction of lung. Paroxysmal atrial fibrillation. Severe Coronary artery disease and history of stent placement recently on September 2018 History of coronary artery bypass graft Hypertension Hyperlipidemia Osteoarthritis Chronic anxiety/PTSD Morbid obesity with BMI 41.5 History of aortic valve replacement due to severe aortic stenosis. History of gout Fatty infiltration of the liver Plan: Patient will be continued on aspirin, Plavix and statins, beta blockers. Started on Lasix 20 mg IV every 12 and continue with spinal lack tone. Continue with DuoNeb's and oxygen therapy as needed. Continue the home medications and follow up closely. Cardiology was consulted. Prognosis is guarded with multiple medical problems and comorbid conditions. Time with Patient: Greater than 30
[2019-03-04 02:26] LABS: Basophils % (A) 0 %; Eosinophils # (A) 0.1 k/uL (0-0.7); Eosinophils % (A) 1 %; HCT 36.8 % (39.0-53.0); HGB 11.7 gm/dL (13.0-17.5); Hypochromasia Slight; Lymphocytes # (A) 0.7 k/uL (1.0-4.8); Lymphocytes % (A) 7 %; MCH 28.4 pg (25.0-35.0); MCHC 31.8 g/dL (31.0-37.0); MCV 89.4 fL (80.0-100.0); Mean Platelet Volume 9.4; Monocytes # (A) 0.6 k/uL (0-1.0); Monocytes % (A) 5 %; Neutrophils # (A) 9.2 k/uL (1.3-7.7); Neutrophils % (A) 86 %; Platelet Count 234 k/uL (150-450); RBC 4.12 m/uL (4.30-5.90); RDW 15.4 % (11.5-15.5); WBC 10.8 k/uL (3.8-10.6)
[2019-03-04 02:37] LABS: Magnesium 1.9 mg/dL (1.6-2.3)
[2019-03-04 03:20] LABS: Potassium 4.1 mmol/L (3.5-5.1)
[2019-03-04] MEDS: FUROSEMIDE 100 MG in SODIUM CHLORIDE 0.9% 90 ML IV SCH ×2 (03:28→12:25)
[2019-03-04] MEDS: SODIUM CHLORIDE 0.9% 1,000 ML IV SCH (03:28)
[2019-03-04] MEDS: PANTOPRAZOLE 40 MG TABLET PO SCH (06:38)
--- NOTE | 2019-03-04 08:25 | P.PN ---
Progress Note - Text Patient is lying comfortably in bed on his side today less short of breath BUN 86 creatinine 1.39 Rising BUN/creatinine noted on IV Lasix drip However like to continue IV Lasix at least at 5 g an hour. IV fluids have been discontinued This gentleman is severe heart failure and I would treat him with a Lasix Triptil tomorrow in spite of the fact that his BUN/creatinine has increased I would like to see his orthopnea improve before proceeding with the procedure TSH is 3.57 him normal Discussed with nurse Discussed with Dr. Madera Do not stop IV Lasix drip Check BMP tomorrow
[2019-03-04] MEDS: ASPIRIN 325 MG TAB PO SCH (08:48)
[2019-03-04] MEDS: METOPROLOL TARTRATE 25 MG TAB PO SCH ×2 (08:48→21:47)
[2019-03-04] MEDS: SPIRONOLACTONE 25 MG TAB PO SCH (08:48)
[2019-03-04] MEDS: IPRATROPIUM 0.5 MG/2.5 ML NEBU INHALATION SCH ×4 (09:23→20:39)
[2019-03-04] MEDS: SYMBICORT 160-4.5 MCG INHALER INHALATION PRN ×2 (09:23→20:39)
[2019-03-04] MEDS: ACETAMINOPHEN TAB 325 MG TAB PO PRN ×2 (10:50→18:24)
--- NOTE | 2019-03-04 11:35 | P.PN ---
Subjective Progress Note Date: 03/04/19 This 73-year-old gentleman with history of ischemic heart disease, aortic valve replacement, previous bypass surgery and stent placement of the left main was admitted with complaints of chest pain and increasing shortness of breath. He had a cardiac catheterization and was found to have patent stent in the left main and circumflex. He was seen by Dr. Ho for evaluation for possible biventricular pacemaker implantation with defibrillator. Patient was still orthopneic and in CHF and patient was started on IV Lasix tip. He is scheduled to have IV pacemaker with a defibrillator tomorrow probably with general anesthesia. Patient is otherwise stable today Objective - Vital Signs Vital signs: Vital Signs Temp 98.1 F 03/04/19 08:31 Pulse 72 03/04/19 10:58 Resp 18 03/04/19 10:58 BP 92/59 03/04/19 10:58 Pulse Ox 96 03/04/19 10:58 Intake & Output 03/03/19 03/04/19 03/04/19 18:59 06:59 18:59 Intake Total 847 100 336 Output Total 800 600 Balance 847 -700 -264 Weight 120.8 kg Intake: IV 250 Heparin Sod,Pork in 0.45% 150 NaCl 25,000 unit In 0.45 % NaCl 1 250ml.bag @ 8.3 UNITS/KG/HR 9.977 mls/hr IV .Q24H [facility] Rx#: [id number] Intake, IV Titration 100 Amount Furosemide 100 mg In 100 Sodium Chloride 0.9% 90 ml @ 5 MG/HR 5 mls/hr IV .Q20H [facility] Rx#:[id number] Oral 597 336 Output: Urine 800 600 Other: Voiding Method Urinal - Exam GENERAL EXAM: Patient is alert and oriented and doesn't appear to be in any acute distress HEENT: Normocephalic. Normal reaction of pupils, equal size, normal range of extraocular motion. No erythema or exudates in the throat. NECK: No masses, no nuchal rigidity. CHEST: No chest wall deformity. LUNGS: Equal air entry with no crackles or wheeze. HEART: S1 and S2 normal with no audible mumurs or gallops. Regular rhythm, femorals equal on both sides.. ABDOMEN: No hepatosplenomegaly, normal bowel sounds, no guarding or rigidity. SKIN: No rashes CENTRAL NERVOUS SYSTEM: No focal deficits. EXTREMITIES: Leg edema - Labs CBC & Chem 7: 03/04/19 02:17 03/04/19 02:17 Labs: Abnormal Lab Results - Last 24 Hours (Table) 03/03/19 03/03/19 03/04/19 Range/Units 11:40 16:35 02:17 WBC 10.8 H (3.8-10.6) k/uL RBC 4.12 L (4.30-5.90) m/uL Hgb 11.7 L (13.0-17.5) gm/dL Hct 36.8 L (39.0-53.0) % Neutrophils # 9.2 H (1.3-7.7) k/uL Lymphocytes # 0.7 L (1.0-4.8) k/uL BUN (9-20) mg/dL Creatinine (0.66-1.25) mg/dL Glucose (74-99) mg/dL POC Glucose (mg/dL) 107 H 131 H (75-99) mg/dL 03/04/19 Range/Units 02:17 WBC (3.8-10.6) k/uL RBC (4.30-5.90) m/uL Hgb (13.0-17.5) gm/dL Hct (39.0-53.0) % Neutrophils # (1.3-7.7) k/uL Lymphocytes # (1.0-4.8) k/uL BUN 36 H (9-20) mg/dL Creatinine 1.39 H (0.66-1.25) mg/dL Glucose 131 H (74-99) mg/dL POC Glucose (mg/dL) (75-99) mg/dL Assessment and Plan (1) Acute on chronic systolic CHF (congestive heart failure) Current Visit: Yes Status: Acute Code(s): I50.23 - ACUTE ON CHRONIC SYSTOLIC (CONGESTIVE) HEART FAILURE SNOMED Code(s): 488128941 (2) NSTEMI (non-ST elevated myocardial infarction) Current Visit: Yes Status: Acute Code(s): I21.4 - NON-ST ELEVATION (NSTEMI) MYOCARDIAL INFARCTION SNOMED Code(s): 99138201 (3) Status post aortic valve replacement Current Visit: Yes Status: Acute Code(s): Z95.2 - PRESENCE OF PROSTHETIC HEART VALVE SNOMED Code(s): 7033554587317 (4) Cardiomyopathy Current Visit: Yes Status: Acute Code(s): I42.9 - CARDIOMYOPATHY, UNSPECIFIED SNOMED Code(s): 99454689 (5) COPD (chronic obstructive pulmonary disease) Current Visit: Yes Status: Acute Code(s): J44.9 - CHRONIC OBSTRUCTIVE PULMONARY DISEASE, UNSPECIFIED SNOMED Code(s): 27369541 Plan: Patient is still short of breath but currently stable. on IV Lasix. His creatinine went up to 1.37V a.patient is going to have IV pacemaker tomorrow
[2019-03-04 18:46] LABS: HCT 37.1 % (39.0-53.0); HGB 12.2 gm/dL (13.0-17.5); Hypochromasia Slight; MCH 28.9 pg (25.0-35.0); MCHC 32.8 g/dL (31.0-37.0); MCV 88.1 fL (80.0-100.0); Mean Platelet Volume 8.6; Platelet Count 262 k/uL (150-450); RBC 4.21 m/uL (4.30-5.90); RDW 15.9 % (11.5-15.5); WBC 15.8 k/uL (3.8-10.6)
--- NOTE | 2019-03-04 19:04 | XR ---
EXAMINATION TYPE: XR chest 1V portable DATE OF EXAM: 03/04/2019 COMPARISON: 03/01/2019 HISTORY: Fever and shortness of breath TECHNIQUE: Single frontal view of the chest is obtained. FINDINGS: There is left lung consolidation favored to be located within the lingula compared to the prior of 03/01/2019 on the lateral view. This is increased from the prior. Right lung remains well aer ated. Post CABG changes the chest. Cardiomediastinal silhouette is partially obscured. No sizable pne umothorax. Diffuse osseous demineralization is seen. Surgical sutures are seen over the left posterio r wall. IMPRESSION: Increasing left lung opacification. Lingular pneumonia as a primary consideration.
[2019-03-04] MEDS ORDERED: AZITHROMYCIN 500 MG in SODIUM CHLORIDE 0.9% 250 ML IVPB SCH (20:00)
[2019-03-04 20:21] LABS: Glucose,Whole Blood 165 mg/dL (75-99)
[2019-03-04] MEDS: LISINOPRIL 5 MG TAB PO SCH (21:47)
[2019-03-04] MEDS: PRAVASTATIN SODIUM 20 MG TAB PO SCH (21:47)
[2019-03-04] MEDS: CLOPIDOGREL 75 MG TAB PO SCH (21:47)
[2019-03-04 23:20] LABS: Appearance,Urine Clear (Clear); Bilirubin,Urine Negative (Negative); Blood,Urine Negative (Negative); Color,Urine Yellow; Glucose,Urine (UA) Negative (Negative); Ketones,Urine Negative (Negative); Leukocyte Esterase,Urine Negative (Negative); Nitrite,Urine Negative (Negative); Protein,Urine Trace (Negative); Specific Gravity,Urine 1.013 (1.001-1.035); Urobilinogen,Urine <2.0 mg/dL (<2.0)
[2019-03-05] MEDS: FUROSEMIDE 100 MG in SODIUM CHLORIDE 0.9% 90 ML IV SCH ×2 (04:20→23:00)
[2019-03-05] MEDS ORDERED: METOPROLOL TARTRATE 12.5 MG TAB PO STA (04:57)
[2019-03-05] MEDS: PANTOPRAZOLE 40 MG TABLET PO SCH (06:29)
[2019-03-05 07:07] LABS: Calcium 8.4 mg/dL (8.4-10.2); Potassium 3.9 mmol/L (3.5-5.1)
[2019-03-05] MEDS ORDERED: SODIUM CHLORIDE 0.9% 1,000 ML IV SCH ×2 (08:30)
[2019-03-05] MEDS ORDERED: ceFAZolin 1,000 MG in SODIUM CHLORIDE 0.9% IRRIGATIO 250 ML IRRIGATION ONE ×2 (08:30→20:00)
[2019-03-05] MEDS: METOPROLOL TARTRATE 25 MG TAB PO SCH (08:36)
[2019-03-05] MEDS: ASPIRIN 325 MG TAB PO SCH (08:36)
[2019-03-05] MEDS: SPIRONOLACTONE 25 MG TAB PO SCH (08:47)
[2019-03-05] MEDS: SYMBICORT 160-4.5 MCG INHALER INHALATION PRN (09:34)
[2019-03-05] MEDS: IPRATROPIUM 0.5 MG/2.5 ML NEBU INHALATION SCH ×4 (09:34→20:59)
[2019-03-05 11:44] LABS: Glucose,Whole Blood 130 mg/dL (75-99)
[2019-03-05] MEDS ORDERED: ROCURONIUM BROMIDE 10 MG/ML 10 ML VIAL IV ONE (18:38)
[2019-03-05] MEDS ORDERED: PROPOFOL 10 MG/ML 20 ML VIAL IV ONE (18:38)
[2019-03-05] MEDS ORDERED: FUROSEMIDE 10 MG/ML 2 ML VIAL ONE (18:38)
[2019-03-05] MEDS ORDERED: PHENYLEPHRINE-0.9% NACL SYG 1 MG/10 ML SYRINGE ONE (18:38)
[2019-03-05] MEDS ORDERED: LIDOCAINE 1% INJ 10MG/ML (20 ML MDV) ONE (18:38)
[2019-03-05] MEDS ORDERED: MIDAZOLAM 2 MG/2 ML VIAL ONE (18:38)
[2019-03-05] MEDS ORDERED: fentaNYL (PF) 50 MCG/ML 2 ML AMP ONE (18:38)
[2019-03-05] MEDS ORDERED: SUCCINYLCHOLINE CHLORIDE VIAL 200 MG/10 ML VIAL IV ONE (18:38)
[2019-03-05] MEDS ORDERED: ACETAMINOPHEN IV (For NPO) 1,000 MG in EMPTY BAG 1 BAG IVPB ONE (18:53)
[2019-03-05] MEDS ORDERED: SODIUM CHLORIDE 0.9% 250 ML IV ONE (18:57)
[2019-03-05] MEDS ORDERED: IV FLUID CONTINUATION 200 ML IV ONE (18:57)
[2019-03-05] MEDS ORDERED: LACTATED RINGERS 1,000 ML IV ONE (19:00)
[2019-03-05] MEDS ORDERED: LIDOCAINE 1% INJ 10MG/ML (20 ML MDV) SQ ONE (19:27)
--- NOTE | 2019-03-05 22:27 | PCN ---
PROCEDURE NOTE This is a 73-year-old male patient with severe ischemic cardiomyopathy, severe class 3 unstable heart failure requiring IV Lasix drip for improvement in orthopnea, severe ischemic cardiomyopathy, underlying coronary artery disease, valvular heart disease, status post aortic valve replacement with a prolonged [place] interval of 236 milliseconds with wide QRS of left bundle branch block type with a QRS width that was re-measured in the EP lab at 150 milliseconds on the EP recording system. The patient was brought to the EP lab in a fasting state. Written informed consent was obtained prior to the procedure. The procedure was performed under general anesthesia. The left pectoral area was prepped and draped as per protocol. Lidocaine 1% was used for local anesthesia. A 5 cm incision was made parallel to the deltopectoral groove, about 1.5 cm medial to it. The incision was carried down to the level of the pectoralis muscle. A subfascial pocket was made. Hemostasis was assured. The left axillary vein was accessed at 3 separate points under fluoroscopy, and via appropriately-sized introducer sheaths, 3 leads were positioned in the right heart. The atrial lead was a Medtronic, 52 cm length, model #5076, serial #[id number]. The P- waves were 1.8 mV, pacing impedance 456 ohms, pacing threshold 1 V at 0.4 milliseconds. Ten-volt test was negative. The ICD lead was a Medtronic model #6935M, 62 cm in length, and serial #[id number]. This was screwed in the low RV septum just above the apex. R-waves were 13 mV, pacing impedance 608 ohms, high-voltage impedance 62 ohms, pacing threshold 0.5 V at 0.4 milliseconds. Ten-volt test was negative. The third lead implanted was a Medtronic model #3830, 69 cm length and serial #[id number]. The His bundle area was mapped. This was a very dilated atrium and it took a long time to obtain His bundle capture associated with narrowing of the QRS. On account of the severe enlargement of the right atrium and the right ventricle and high pressures, the catheter was unstable. However, on multiple times there was poor contact with the septum; at other times a very sharp His bundle spike with an HV interval of about 60 to 70 milliseconds was obtained with selective capture, but with a wide QRS of left bundle branch block type with a QRS width of 148 milliseconds without narrowing of the QRS. Mapping was continued and the distal His bundle area was mapped. The lead was screwed deep into this tissue with nonselective capture but significant narrowing of the QRS down to 100 milliseconds. The lead was very stable in this position, but it took a long time to get this position on account of the difficulties encountered above related to the size of the atrium and compression of the heart. Following that, the sheaths were removed and the leads were secured to the underlying pectoralis muscle using now 2 nonabsorbable sutures and then connected to the generator, biventricular ICD [employer] MRI, model #BNMI1Q4, serial #[id number]. The leads and the generator were then placed in the subfascial pocket. The wound was closed in 3 layers and dressed per protocol. Prior to the start of the study, a left upper extremity venogram had been performed; 15 mL of dye was injected in the left arm and a patent subclavian and axillary venous system was noted. The patient tolerated the procedure well without any acute complications. PLAN: Resume beta blockers. Resume oral Lasix. The patient's BUN and creatinine had risen on IV Lasix on account of cardiorenal syndrome, but this should improve with biventricular pacing. She will be treated with oral Lasix now. maximization of heart failure medications. MMODL / IJN: [id number] /
[2019-03-05] MEDS: PROPOFOL 1,000 MG in EMPTY BAG 1 BAG IV SCH (22:30)
--- NOTE | 2019-03-05 22:30 | P.PN ---
Subjective Progress Note Date: 03/04/19 Principal diagnosis: Acute non-ST elevated MD Acute on chronic CHF Patient is a 73-year-old male with a known history of coronary artery disease status post CABG, history of PCI and recent cardiac catheterization with stent placement in September , severe coronary disease, chronic CHF with systolic dysfunction ejection fraction 20-25%, COPD possible underlying restrictive lung disease, paroxysmal atrial fibrillation and morbid obesity with BMI 41.5 and other multiple medical problems came to ER with complaints of shortness of breath, worsening for the past 10 days. Patient also having chest pain on and off and felt like tightness of the chest. Patient also says that his heart rate was increasing 100 at home. Patient is supposed to get pacemaker due to tachybradycardia in February 24 2019 but was postponed to 2018. Patient has been sleeping mostly for the past 1 week. Chest x-ray showed borderline cardiomegaly. Unchanged from prior study. EKG showed sinus tachycardia with premature ventricular complexes and left Atrial Enlargement. Troponin 2.37 and 1.49, WBC 13.0 BNP 20915 03/02/2019 Patient is currently lying in the bed comfortably. Awake alert oriented 3. No complaints of chest pain. Shortness of breath improving. Cardiology is planning for cardiac catheterization tomorrow. 03/03/2019 Patient is currently lying in the bed comfortably. Shortness of breath with ambulation. Patient is otherwise status post cardiac catheterization today loreto wed patent stents and maximal medical therapy was recommended. Patient also has been having nonsustained V. tach and a low ejection fraction. Currently being evaluated for AICD placement. EP was consulted. No complaints of chest pain. Continued on IV Lasix. No nausea vomiting or abdominal pain. No diarrhea or dysuria. Renal function is fairly stable. 03/04/2019 Patient is currently lying in the bed. Shortness of breath with slight improvement. Status post cardiac catheterization and was found have patent stent. Patient does have nonsustained V. tach. Patient was seen by EP for possible biventricular pacemaker implantation with defibrillator. Patient was started on Lasix drip due to acute on chronic CHF with systolic dysfunction. No fever no chills. No cough or sputum production. No other acute overnight issues otherwise. Current medications reviewed. Objective - Vital Signs Vital signs: Vital Signs Temp 98.2 F 03/05/19 16:00 Pulse 80 03/05/19 16:45 Resp 20 03/05/19 16:00 BP 105/52 03/05/19 16:00 Pulse Ox 97 03/05/19 16:00 Intake & Output 03/05/19 03/05/19 03/06/19 06:59 18:59 06:59 Intake Total 79.583 200 650 Output Total 600 400 Balance -520.417 -200 650 Weight 118 kg 118 kg Intake: IV 200 650 Intake, IV Titration 79.583 Amount Furosemide 100 mg In 79.583 Sodium Chloride 0.9% 90 ml @ 5 MG/HR 5 mls/hr IV .Q20H [facility] Rx#:[id number] Output: Urine 600 400 Other: Voiding Method Urinal Toilet - Exam PHYSICAL EXAMINATION: Patient is lying in the bed comfortably, no acute distress, awake alert and oriented morbidly obese... HEENT: Normocephalic. Neck is supple. Pupils reactive. Nostrils clear. Oral cavity is moist. Ears reveal no drainage. Neck reveals no JVD, carotid bruits, or thyromegaly. CHEST EXAMINATION: Trachea is central. Symmetrical expansion. Bibasilar diminished air entry. Lung nolen clear to auscultation and percussion. CARDIAC: Normal S1, S2 with no gallops. No murmurs ABDOMEN: Soft. Obese, distended, Bowel sounds normal. No organomegaly. No abdominal bruits. Extremities: 2+ edema. No clubbing or cyanosis Neurologically awake, alert, oriented x3 with well-coordinated movements. No focal deficits noted Skin: No rash or skin lesions. Psychiatric: Coperative. Nonsuicidal Musculoskeletal: No joint swelling or deformity. Normal range of motion. - Labs CBC & Chem 7: 03/04/19 18:32 03/05/19 06:09 Labs: Abnormal Lab Results - Last 24 Hours (Table) 03/04/19 03/05/19 03/05/19 Range/Units 23:09 06:09 11:42 Sodium 136 L (137-145) mmol/L BUN 45 H (9-20) mg/dL Creatinine 1.96 H (0.66-1.25) mg/dL Glucose 119 H (74-99) mg/dL POC Glucose (mg/dL) 130 H (75-99) mg/dL Urine Protein Trace H (Negative) Microbiology - Last 24 Hours (Table) 03/04/19 18:31 Blood Culture Gram Stain - Preliminary Blood Blood Culture - Preliminary Group D Enterococcus 03/04/19 18:31 Blood Culture - Final Blood Assessment and Plan Assessment: Acute non-ST elevated MD with elevated troponin level. Status post cardiac catheterization showing patent stents. Shortness of breath due to acute on chronic CHF with systolic dysfunction. Ejection fraction 20-25%. Patient does have elevated BNP and increased leg swelling. Ischemic cardiomyopathy. Being evaluated for AICD placement. Possible underlying COPD with extrapulmonary restriction of lung. Paroxysmal atrial fibrillation. Severe Coronary artery disease and history of stent placement recently on September 2018 History of coronary artery bypass graft Hypertension Hyperlipidemia Osteoarthritis Chronic anxiety/PTSD Morbid obesity with BMI 41.5 History of aortic valve replacement due to severe aortic stenosis. History of gout Fatty infiltration of the liver Plan: Patient will be continued on aspirin, Plavix and statins, beta blockers. Started on Lasix 20 mg IV every 12, changed to drip and continue with spironolactone. Continue with DuoNeb's and oxygen therapy as needed. Continue the home medications and follow up closely. Cardiology and EP is following. Prognosis is guarded with multiple medical problems and comorbid conditions. Time with Patient: Greater than 30
--- NOTE | 2019-03-05 22:37 | P.PN ---
Subjective Progress Note Date: 03/05/19 Principal diagnosis: Acute non-ST elevated WI Acute on chronic CHF Patient is a 73-year-old male with a known history of coronary artery disease status post CABG, history of PCI and recent cardiac catheterization with stent placement in September , severe coronary disease, chronic CHF with systolic dysfunction ejection fraction 20-25%, COPD possible underlying restrictive lung disease, paroxysmal atrial fibrillation and morbid obesity with BMI 41.5 and other multiple medical problems came to ER with complaints of shortness of breath, worsening for the past 10 days. Patient also having chest pain on and off and felt like tightness of the chest. Patient also says that his heart rate was increasing 100 at home. Patient is supposed to get pacemaker due to tachybradycardia in February 24 2019 but was postponed to 2018. Patient has been sleeping mostly for the past 1 week. Chest x-ray showed borderline cardiomegaly. Unchanged from prior study. EKG showed sinus tachycardia with premature ventricular complexes and left Atrial Enlargement. Troponin 2.37 and 1.49, WBC 13.0 BNP 15143 03/02/2019 Patient is currently lying in the bed comfortably. Awake alert oriented 3. No complaints of chest pain. Shortness of breath improving. Cardiology is planning for cardiac catheterization tomorrow. 03/03/2019 Patient is currently lying in the bed comfortably. Shortness of breath with ambulation. Patient is otherwise status post cardiac catheterization today loreto wed patent stents and maximal medical therapy was recommended. Patient also has been having nonsustained V. tach and a low ejection fraction. Currently being evaluated for AICD placement. EP was consulted. No complaints of chest pain. Continued on IV Lasix. No nausea vomiting or abdominal pain. No diarrhea or dysuria. Renal function is fairly stable. 03/04/2019 Patient is currently lying in the bed. Shortness of breath with slight improvement. Status post cardiac catheterization and was found have patent stent. Patient does have nonsustained V. tach. Patient was seen by EP for possible biventricular pacemaker implantation with defibrillator. Patient was started on Lasix drip due to acute on chronic CHF with systolic dysfunction. No fever no chills. No cough or sputum production. No other acute overnight issues otherwise. 03/05/2019 Patient is currently lying in the bed comfortable. Denied any complaints of cough or sputum production. Patient was febrile last night. Did have leukocytosis at 15.8 Chest x-ray was done. Chest x-ray showed increasing left lung opacification lingular pneumonia is a primary consideration. Patient was started on antibiotics the form of Zosyn. Patient is currently on oral Lasix. Patient was scheduled for AICD placement. Denied any chest pain. No nausea vomiting or diarrhea. Creatinine level increased to 1.9 today Follow-up CBC and BMP tomorrow. Current medications reviewed. Objective - Vital Signs Vital signs: Vital Signs Temp 98.2 F 03/05/19 16:00 Pulse 80 03/05/19 16:45 Resp 20 03/05/19 16:00 BP 105/52 03/05/19 16:00 Pulse Ox 97 03/05/19 16:00 Intake & Output 03/05/19 03/05/19 03/06/19 06:59 18:59 06:59 Intake Total 79.583 200 650 Output Total 600 400 Balance -520.417 -200 650 Weight 118 kg 118 kg Intake: IV 200 650 Intake, IV Titration 79.583 Amount Furosemide 100 mg In 79.583 Sodium Chloride 0.9% 90 ml @ 5 MG/HR 5 mls/hr IV .Q20H [facility] Rx#:[id number] Output: Urine 600 400 Other: Voiding Method Urinal Toilet - Exam PHYSICAL EXAMINATION: Patient is lying in the bed comfortably, no acute distress, awake alert and oriented morbidly obese... HEENT: Normocephalic. Neck is supple. Pupils reactive. Nostrils clear. Oral cavity is moist. Ears reveal no drainage. Neck reveals no JVD, carotid bruits, or thyromegaly. CHEST EXAMINATION: Trachea is central. Symmetrical expansion. Bibasilar diminished air entry. Lung nolen clear to auscultation and percussion. CARDIAC: Normal S1, S2 with no gallops. No murmurs ABDOMEN: Soft. Obese, distended, Bowel sounds normal. No organomegaly. No abdominal bruits. Extremities: 2+ edema. No clubbing or cyanosis Neurologically awake, alert, oriented x3 with well-coordinated movements. No focal deficits noted Skin: No rash or skin lesions. Psychiatric: Coperative. Nonsuicidal Musculoskeletal: No joint swelling or deformity. Normal range of motion. - Labs CBC & Chem 7: 03/04/19 18:32 03/05/19 06:09 Labs: Abnormal Lab Results - Last 24 Hours (Table) 03/04/19 03/05/19 03/05/19 Range/Units 23:09 06:09 11:42 Sodium 136 L (137-145) mmol/L BUN 45 H (9-20) mg/dL Creatinine 1.96 H (0.66-1.25) mg/dL Glucose 119 H (74-99) mg/dL POC Glucose (mg/dL) 130 H (75-99) mg/dL Urine Protein Trace H (Negative) Microbiology - Last 24 Hours (Table) 03/04/19 18:31 Blood Culture Gram Stain - Preliminary Blood Blood Culture - Preliminary Group D Enterococcus 03/04/19 18:31 Blood Culture - Final Blood Assessment and Plan Assessment: Acute non-ST elevated WI with elevated troponin level. Status post cardiac catheterization showing patent stents. Shortness of breath due to acute on chronic CHF with systolic dysfunction. Ejection fraction 20-25%. Patient does have elevated BNP and increased leg swelling. Possible left lingular pneumonia. Possible sepsis. Started on antibiotics in the form of Zosyn. Acute kidney injury likely due to diuresis. Ischemic cardiomyopathy. Being evaluated for AICD placement. Possible underlying COPD with extrapulmonary restriction of lung. Paroxysmal atrial fibrillation. Severe Coronary artery disease and history of stent placement recently on September 2018 History of coronary artery bypass graft Hypertension Hyperlipidemia Osteoarthritis Chronic anxiety/PTSD Morbid obesity with BMI 41.5 History of aortic valve replacement due to severe aortic stenosis. History of gout Fatty infiltration of the liver Plan: Patient will be continued on aspirin, Plavix and statins, beta blockers. Started on Lasix 20 mg IV every 12, changed to drip. Currently on oral Lasix. continue with spironolactone. Continue with DuoNeb's and oxygen therapy as needed. Continue the home medications and follow up closely. Cardiology and EP is following. Scheduled for AICD placement Prognosis is guarded with multiple medical problems and comorbid conditions. Time with Patient: Greater than 30
--- NOTE | 2019-03-05 22:55 | XR ---
EXAMINATION TYPE: XR chest 1V portable DATE OF EXAM: 03/05/2019 COMPARISON: 03/04/2019 HISTORY: Check tube placement TECHNIQUE: Single frontal view of the chest is obtained. FINDINGS: There is endotracheal tube with the tip 3.5 cm from the yoseph. There is nasogastric tube with the tip in the distal stomach. There is some pulmonary edema. There is coalescent density right upper lobe. There is a left axillary pacemaker. Trachea is midline. Heart appears enlarged. IMPRESSION: There is new right upper lobe pneumonia compared to last exam. Tubing in good position. There is probably some heart failure that is new compared to last exam.
[2019-03-05 22:56] LABS: Glucose,Whole Blood 173 mg/dL (75-99)
[2019-03-05 23:12] LABS: ABG Base Excess -2.7 mmol/L; ABG HCO3 24 mmol/L (21-25); ABG Oxygen Saturation 99.3 % (94-97); ABG PCO2 51 mmHg (35-45); ABG PH 7.28 (7.35-7.45); ABG PO2 234 mmHg (83-108); ABG TCO2 26 mmol/L (19-24); Allen Test Performed? Yes
[2019-03-06 00:27] LABS: Basophils % (A) 0 %; Eosinophils # (A) 0.1 k/uL (0-0.7); Eosinophils % (A) 0 %; HCT 32.9 % (39.0-53.0); HGB 10.4 gm/dL (13.0-17.5); Hypochromasia Marked; Lymphocytes # (A) 0.7 k/uL (1.0-4.8); Lymphocytes % (A) 4 %; MCH 28.8 pg (25.0-35.0); MCHC 31.7 g/dL (31.0-37.0); MCV 90.8 fL (80.0-100.0); Mean Platelet Volume 7.5; Monocytes # (A) 0.8 k/uL (0-1.0); Monocytes % (A) 4 %; Neutrophils # (A) 17.6 k/uL (1.3-7.7); Neutrophils % (A) 91 %; Platelet Count 247 k/uL (150-450); RBC 3.63 m/uL (4.30-5.90); RDW 14.2 % (11.5-15.5); WBC 19.4 k/uL (3.8-10.6)
[2019-03-06 00:28] LABS: ABG Base Excess -2.3 mmol/L; ABG HCO3 22 mmol/L (21-25); ABG Oxygen Saturation 95.9 % (94-97); ABG PCO2 35 mmHg (35-45); ABG PH 7.42 (7.35-7.45); ABG PO2 80 mmHg (83-108); ABG TCO2 23 mmol/L (19-24); Allen Test Performed? Yes
[2019-03-06] MEDS: CLOPIDOGREL 75 MG TAB PO SCH ×2 (00:48→21:38)
[2019-03-06] MEDS: PRAVASTATIN SODIUM 20 MG TAB PO SCH ×2 (00:50→21:54)
[2019-03-06] MEDS: LISINOPRIL 5 MG TAB PO SCH (00:50)
[2019-03-06] MEDS: NOREPINEPHRINE 4 MG in SODIUM CHLORIDE 0.9% 250 ML IV SCH ×3 (01:00→18:21)
[2019-03-06] MEDS: PIPERACILLIN-TAZOBACTAM 3.375 GM in SODIUM CHLORIDE 0.9% 100 ML IVPB SCH ×2 (02:46→09:40)
[2019-03-06] MEDS: HEPARIN SODIUM,PORCINE 5,000 UNIT/ML 1 ML VIAL SQ SCH ×3 (02:49→15:59)
[2019-03-06 03:09] LABS: Calcium 8.8 mg/dL (8.4-10.2); Potassium 3.9 mmol/L (3.5-5.1)
[2019-03-06 03:13] LABS: Basophils % (A) 0 %; Eosinophils # (A) 0.1 k/uL (0-0.7); Eosinophils % (A) 1 %; HCT 33.8 % (39.0-53.0); Hypochromasia Slight; Lymphocytes # (A) 0.8 k/uL (1.0-4.8); Lymphocytes % (A) 4 %; MCH 28.7 pg (25.0-35.0); MCHC 32.6 g/dL (31.0-37.0); MCV 88.3 fL (80.0-100.0); Mean Platelet Volume 7.5; Monocytes # (A) 0.8 k/uL (0-1.0); Monocytes % (A) 4 %; Neutrophils # (A) 18.8 k/uL (1.3-7.7); Neutrophils % (A) 91 %; Platelet Count 276 k/uL (150-450); RBC 3.83 m/uL (4.30-5.90); RDW 14.4 % (11.5-15.5); WBC 20.6 k/uL (3.8-10.6)
[2019-03-06 04:59] LABS: ABG HCO3 21 mmol/L (21-25); ABG Oxygen Saturation 99.9 % (94-97); ABG PCO2 28 mmHg (35-45); ABG PH 7.48 (7.35-7.45); ABG PO2 229 mmHg (83-108); ABG TCO2 21 mmol/L (19-24); Allen Test Performed? Yes
[2019-03-06] MEDS: IPRATROPIUM 0.5 MG/2.5 ML NEBU INHALATION SCH ×4 (07:22→19:12)
[2019-03-06] MEDS ORDERED: METOPROLOL SUCCINATE (ER) 25 MG TAB.ER.24H PO SCH (09:00)
--- NOTE | 2019-03-06 09:20 | P.CNPUL ---
History of Present Illness Consult date: 03/06/19 Reason for consult: dyspnea History of present illness: This is a 71-year-old male patient with known history of ischemic cardiomyopathy along with known history of coronary artery disease and previous aortic valve replacement, AVR, and previous coronary artery bypass surgery, who presented to the hospital because of chest pain and non-STEMI. The patient has had previous catheterizations with stenting done in the distal left main as well as the proximal circumflex. He has a chronically totally occluded RCA. As mentioned, the patient was admitted with chest pain or shortness of breath and acute non- STEMI. The patient underwent another cardiac catheterization and the patient was found to have taken stent to the distal left mainstem to proximal circumflex, patent BELTRAN to LAD, chronic totally occluded RCA. Recommendations were mainly to maximize medical management. The patient was being treated for congestion heart failure. He was receiving Lasix drip and he was having ongoing orthopnea. He was taken yesterday to the [facility] and the patient was given biventricular pacing/AICD. Noted postop, the patient was extubated. He became short of breath and went into significant amount of respiratory distress and within 10 minutes she had to be reintubated. He was brought into the intensive care unit intubated on a mechanical ventilator. Initial blood gases showed a pH of 7.28 with a pCO2 of 51 and pO2 of 234. Necessary vent changes were done. The most recent blood gas showed a pH of 7.48 with a pCO2 of 28 and pO2 of 229. The morning vent settings include a tidal volume 400 with a rate of 18 and FiO2 of 40% with 5. The setting was adjusted based on the most recent blood gas. I noted that the patient is also on pressors and overnight the patient has required norepinephrine infusion and currently is running at 0.1 mcg/kg per minute. The patient is also on Lasix drip at 10 mg an hour. He is producing urine output. However, the patient has developed an acute kidney injury. Creatinine was normal at the time of admission on 02/27/2019 and there has been progressive rise in the creatinine which is up to 2.6 at this point in time. He was he was developing fevers with a temperature 11.6 on 03/04/2019. The patient has blood culture sent a blood culture came back positive for enterococcus group D. The patient was on cefazolin. IV Zosyn was added by the primary care team. This morning, the patient is sedated with propofol is currently running at 50 mics. His, comfortable. He is producing urine output. Her net fluid balance is -642 mL for yesterday. His cardiac rhythm is paced. His white cell count is 19.4. He is obviously septic condition with a positive blood culture. UA the time of admission was negative. He has a Diaz catheter in place. Abdomen is soft. His umbilical hernia. Surgical wound site over the left biventricular pacemaker is dry clean and intact. No significant orotracheal secretions. Chest x-ray from today shows cardiomegaly and lower lobe consolidation as the patient is a left lower lobe consolidation of the right upper lobe! The echocardiogram at shown an ejection fraction of 20-25%. There is moderate concentric left ventricular hypertrophy. There is severe global hypokinesis. No pericardial effusion. The peak gradient across the aortic valve was 35 mmHg. It is a normal functioning bioprosthetic valve. There is moderate mitral regurgitation. Mild pulmonary hypertension. Review of Systems ROS unobtainable: due to endotracheal tube Past Medical History Past Medical History: Asthma, Coronary Artery Disease (CAD), Chest Pain / Angina, Heart Failure, COPD, GERD/Reflux, Hyperlipidemia, Hypertension, Osteoarthritis (OA) Additional Past Medical History / Comment(s): Artery disease, previous ND, previous history of coronary artery bypass surgery, previous history aortic valve replacement with a bioprosthetic valve, CHF with ejection fraction of 20- 25%, obesity with a BMI of 43, COPD, hypertension, hyperlipidemia, umbilical hernia, previous history of small bowel obstruction with an incarcerated hernia requiring surgical intervention, history of PTSD, generalized anxiety disorder, gout, previous history of VRE. History of Any Multi-Drug Resistant Organisms: None Reported Date of last positivie culture/infection: 2007 MDRO Source:: SURGICAL INCISION Past Surgical History: Appendectomy, Cardiac Valve Replacement, Cholecystectomy, Coronary Bypass/CABG, Heart Catheterization, Heart Catheterization With Stent, Hernia Repair Additional Past Surgical History / Comment(s): 01/2016 aortic valve replacement with triple bypass, 2016 PCI with stents, R upper quadrant ventral incisional hernia repair, R ankle surgery with rods/pins, exploratory laparotomy while in [place]-pt doesn't recall what was found, colonoscopy, bilateral cataract removals/lens implants. Past Anesthesia/Blood Transfusion Reactions: No Reported Reaction Date of Last Stent Placement:: 03/22/17 Past Psychological History: Anxiety, PTSD Smoking Status: Former smoker Past Alcohol Use History: None Reported Past Drug Use History: None Reported - Past Family History Father Family Medical History: Myocardial Infarction (ND) Additional Family Medical History / Comment(s): CABG. Father had a ND at the age of 72 yrs. Father at the age of 85 yrs. Mother Family Medical History: Myocardial Infarction (ND) Additional Family Medical History / Comment(s): CABG. Mother had a ND in her 70s. She lived to be 88yrs old. Medications and Allergies Home Medications Medication Instructions Recorded Confirmed Type Albuterol Sulfate [Proair Hfa] 2 puff INHALATION RT-QID PRN 01/27/16 03/01/19 History Budesonide-Formot 160-4.5 Mcg 2 puff INHALATION RT-BID PRN 01/27/16 03/01/19 History [Symbicort 160-4.5 Mcg Inhaler] Tiotropium Andrews [Spiriva] 1 puff INHALATION RT-DAILY 01/27/16 03/01/19 Hist ory Metoprolol Tartrate [Lopressor] 25 mg PO BID #30 tab 02/03/16 03/01/19 Rx Allopurinol [Zyloprim] 100 mg PO HS PRN 01/04/17 03/01/19 History Lisinopril [Zestril] 5 mg PO HS 01/04/17 03/01/19 History Albuterol Nebulized [Ventolin 2.5 mg INHALATION Q4H PRN 03/19/17 03/01/19 History Nebulized] Omeprazole [PriLOSEC] 40 mg PO AC-BRKFST 03/19/17 03/01/19 History Pravastatin Sodium [Pravachol] 10 mg PO HS 03/19/17 03/01/19 History Sildenafil Citrate [Viagra] 100 mg PO DIRECTED PRN 03/19/17 03/01/19 History Aspirin EC [Ecotrin Low Dose] 81 mg PO DAILY 08/29/18 03/01/19 History Spironolactone [Aldactone] 25 mg PO DAILY #30 tab 09/01/18 03/01/19 Rx Furosemide [Lasix] 40 mg PO BID 09/18/18 03/01/19 History Clopidogrel [Plavix] 75 mg PO HS 09/19/18 03/01/19 History Allergies Allergy/AdvReac Type Severity Reaction Status Date / Time levofloxacin [From Levaquin] AdvReac Unknown Verified 03/01/19 15:17 Physical Exam Vitals: Vital Signs Temp Pulse Pulse Pulse Resp BP BP 03/06/19 07:48 60 03/06/19 07:22 60 03/06/19 05:00 53 L 24 102/58 03/06/19 04:00 98.5 F 51 L 24 99/53 03/06/19 03:00 60 24 106/57 03/06/19 02:00 54 L 24 109/55 03/06/19 01:00 56 L 24 95/56 03/05/19 16:45 80 03/05/19 16:26 88 03/05/19 16:00 98.2 F 100 20 105/52 03/05/19 13:13 84 03/05/19 13:03 88 03/05/19 11:37 74 18 03/05/19 09:45 88 03/05/19 09:34 88 03/05/19 08:40 94 16 BP Pulse Ox 03/06/19 07:48 03/06/19 07:22 03/06/19 05:00 97 03/06/19 04:00 98 03/06/19 03:00 98 03/06/19 02:00 99 03/06/19 01:00 99 03/05/19 16:45 03/05/19 16:26 03/05/19 16:00 97 03/05/19 13:13 03/05/19 13:03 03/05/19 11:37 108/75 97 03/05/19 09:45 03/05/19 09:34 03/05/19 08:40 Intake and Output 03/05/19 03/06/19 03/06/19 22:59 06:59 14:59 Intake Total 850 82.479 10 Output Total 405 50 Balance 850 -322.521 -40 Intake: IV 850 Intake, IV Titration 82.479 10 Amount Furosemide 100 mg In 60 10 Sodium Chloride 0.9% 90 ml @ 10 MG/HR 10 mls/hr IV .Q10H [facility] Rx#: [id number] Norepinephrine 4 mg In 22.479 Sodium Chloride 0.9% 250 ml @ 0.05 MCG/KG/MIN 22. 479 mls/hr IV .[id number] [facility] Rx#:[id number] Output: Urine 405 50 Other: Voiding Method Indwelling Catheter Weight 124.6 kg Gen. appearance, comfortable likely distress. Sedated. Currently on a propofol drip infusion. The patient currently has an orogastric and orotracheal tube and both of them are in place. Head exam was generally normal. There was no scleral icterus or corneal arcus. Mucous membranes were moist. Neck was supple and without jugular venous distension, thyromegaly, or carotid bruits. Carotids were easily palpable bilaterally. There was no adenopathy. Lungs sounds are diminished bilaterally. No rhonchi. No wheezes. The patient is a pacemaker pocket over the left anterior chest area and the overlying skin is dry clean and intact. Heart sounds are regular and there paced at this point in time. No cervical murmurs appreciated. Sternotomy scar is dry clean and intact. No right ventricular heave or thrill. Abdominal exam revealed normal bowel sounds. The abdomen was soft, non-tender, and without masses, organomegaly, or appreciable enlargement of the abdominal aorta. Examination of the extremities revealed easily palpable radial, femoral and pedal pulses. There was no cyanosis, clubbing or edema. There is trace edema lower extremities bilaterally. Examination of the skin revealed no evidence of significant rashes, suspicious appearing nevi or other concerning lesions. Neurologic the patient is sedated. He was moving all 4 extremities and lower degree of sedation. His RAAS scale is -1-2 Results - Laboratory Findings CBC and BMP: 03/06/19 02:42 03/06/19 02:42 ABG ABG pH 7.48 (7.35-7.45) H 03/06/19 04:52 ABG pCO2 28 mmHg (35-45) L 03/06/19 04:52 ABG pO2 229 mmHg (83-108) H 03/06/19 04:52 ABG O2 Saturation 99.9 % (94-97) H 03/06/19 04:52 PT/INR, D-dimer PT 11.8 sec (9.0-12.0) 03/01/19 15:07 INR 1.1 (<1.2) 03/01/19 15:07 Abnormal lab findings: Abnormal Labs 09/03/01/19 03/01/19 15:07 15:07 15:07 WBC 13.0 H RBC 4.19 L Hgb 12.2 L Hct 37.0 L RDW 16.1 H Neutrophils # 11.4 H Lymphocytes # 0.8 L APTT ABG pH ABG pCO2 ABG pO2 ABG Total CO2 ABG O2 Saturation Sodium Carbon Dioxide BUN 21 H Creatinine Glucose 119 H POC Glucose (mg/dL) Alkaline Phosphatase 154 H Troponin I 2.370 H* Albumin 3.4 L LDL Cholesterol, Calc HDL Cholesterol Urine Protein 03/01/19 03/01/19 03/02/19 21:40 21:40 04:09 WBC RBC Hgb Hct RDW Neutrophils # Lymphocytes # APTT 34.5 H ABG pH ABG pCO2 ABG pO2 ABG Total CO2 ABG O2 Saturation Sodium Carbon Dioxide BUN Creatinine Glucose POC Glucose (mg/dL) Alkaline Phosphatase Troponin I 1.490 H* 1.080 H* Albumin LDL Cholesterol, Calc HDL Cholesterol Urine Protein 03/02/19 03/02/19 03/02/19 04:09 04:09 04:09 WBC RBC 3.98 L Hgb 11.6 L Hct 35.4 L RDW Neutrophils # 8.2 H Lymphocytes # 0.7 L APTT 35.8 H ABG pH ABG pCO2 ABG pO2 ABG Total CO2 ABG O2 Saturation Sodium Carbon Dioxide BUN 26 H Creatinine Glucose 174 H POC Glucose (mg/dL) Alkaline Phosphatase Troponin I Albumin LDL Cholesterol, Calc 148 H HDL Cholesterol 19 L Urine Protein 03/02/19 03/02/19 03/03/19 14:57 21:57 06:10 WBC RBC Hgb Hct RDW Neutrophils # Lymphocytes # APTT 45.4 H 53.7 H ABG pH ABG pCO2 ABG pO2 ABG Total CO2 ABG O2 Saturation Sodium Carbon Dioxide BUN Creatinine Glucose POC Glucose (mg/dL) 132 H Alkaline Phosphatase Troponin I Albumin LDL Cholesterol, Calc HDL Cholesterol Urine Protein 03/03/19 03/03/19 03/04/19 11:40 16:35 02:17 WBC 10.8 H RBC 4.12 L Hgb 11.7 L Hct 36.8 L RDW Neutrophils # 9.2 H Lymphocytes # 0.7 L APTT ABG pH ABG pCO2 ABG pO2 ABG Total CO2 ABG O2 Saturation Sodium Carbon Dioxide BUN Creatinine Glucose POC Glucose (mg/dL) 107 H 131 H Alkaline Phosphatase Troponin I Albumin LDL Cholesterol, Calc HDL Cholesterol Urine Protein 03/04/19 03/04/19 03/04/19 02:17 18:32 20:19 WBC 15.8 H RBC 4.21 L Hgb 12.2 L Hct 37.1 L RDW 15.9 H Neutrophils # Lymphocytes # APTT ABG pH ABG pCO2 ABG pO2 ABG Total CO2 ABG O2 Saturation Sodium Carbon Dioxide BUN 36 H Creatinine 1.39 H Glucose 131 H POC Glucose (mg/dL) 165 H Alkaline Phosphatase Troponin I Albumin LDL Cholesterol, Calc HDL Cholesterol Urine Protein 03/04/19 03/05/19 03/05/19 23:09 06:09 11:42 WBC RBC Hgb Hct RDW Neutrophils # Lymphocytes # APTT ABG pH ABG pCO2 ABG pO2 ABG Total CO2 ABG O2 Saturation Sodium 136 L Carbon Dioxide BUN 45 H Creatinine 1.96 H Glucose 119 H POC Glucose (mg/dL) 130 H Alkaline Phosphatase Troponin I Albumin LDL Cholesterol, Calc HDL Cholesterol Urine Protein Trace H 03/05/19 03/05/19 03/06/19 22:22 23:06 00:03 WBC 19.4 H RBC 3.63 L Hgb 10.4 L Hct 32.9 L RDW Neutrophils # 17.6 H Lymphocytes # 0.7 L APTT ABG pH 7.28 L ABG pCO2 51 H ABG pO2 234 H ABG Total CO2 26 H ABG O2 Saturation 99.3 H Sodium Carbon Dioxide BUN Creatinine Glucose POC Glucose (mg/dL) 173 H Alkaline Phosphatase Troponin I Albumin LDL Cholesterol, Calc HDL Cholesterol Urine Protein 03/06/19 03/06/19 03/06/19 00:22 02:42 02:42 WBC 20.6 H RBC 3.83 L Hgb 11.0 L Hct 33.8 L RDW Neutrophils # 18.8 H Lymphocytes # 0.8 L APTT ABG pH ABG pCO2 ABG pO2 80 L ABG Total CO2 ABG O2 Saturation Sodium Carbon Dioxide 20 L BUN 45 H Creatinine 2.61 H Glucose 157 H POC Glucose (mg/dL) Alkaline Phosphatase Troponin I Albumin LDL Cholesterol, Calc HDL Cholesterol Urine Protein 03/06/19 04:52 WBC RBC Hgb Hct RDW Neutrophils # Lymphocytes # APTT ABG pH 7.48 H ABG pCO2 28 L ABG pO2 229 H ABG Total CO2 ABG O2 Saturation 99.9 H Sodium Carbon Dioxide BUN Creatinine Glucose POC Glucose (mg/dL) Alkaline Phosphatase Troponin I Albumin LDL Cholesterol, Calc HDL Cholesterol Urine Protein - Diagnostic Findings Chest x-ray: image reviewed Assessment and Plan Plan: 1 acute hypoxic respiratory failure, multifactorial. The patient may have an underlying pneumonia. However he is in heart failure/pulmonary edema. He is hemodynamically unstable and hypotensive. The patient is currently intubated on a mechanical ventilator. 2 coronary artery disease with previous bypass surgery. The patient was hospitalized for an acute non-STEMI and chest pain. The patient had an acute non-STEMI underwent cardiac catheterization and the BELTRAN to LAD and the rest of the stents were patent and he was offered medical management 3 severe ischemic cardiomyopathy with an ejection fraction of 20-25% post insertion of a biventricular pacemaker/defibrillator 4 aortic valve replacement with bioprosthetic valve. Echocardiogram shows a normal functioning valve with moderate degree of mitral regurgitation mild pulmonary hypertension. 5 septic shock with enterococcus group D in the blood. The exact source is not clear. Unfortunately this biventricular pacemaker was placed at the time of his septic event. The patient also has a bioprosthetic aortic valve at this point in time. The patient's is having leukocytosis and hypotension. The exact source for this enterococcus is not clear. No signs of skin or soft tissue infection. No signs of any intra-abdominal or pelvic infection. Urinalysis demonstrates admission was negative. Obviously the patient is bacteremic. We'll cover him with IV Zosyn for now pending further cultures and sensitivities. Possibilities may be Enterococcus faecalis versus faecium 6 acute kidney injury, consider secondary to sepsis versus contrast nephropathy 7 COPD 8 hypertension, history of 9 hyperlipidemia 10 generalized anxiety disorder/PTSD. 11 obesity with a BMI of 43 Plan Continue vent support. Necessary ventilator changes were done. Obtain sputum Gram stain and culture. There is a concern for multilobar pneumonia. There is also a enterococcus group D in the blood. I think is reasonable to cover the patient with IV Zosyn for now pending ID consultation. Obtain sputum Gram stain and culture. Repeat blood cultures. Continue pressors for now. With incidental triple-lumen catheter for hemodynamic support. We'll insert a arterial line catheter. Continue with Lasix drip for now. Obtain also the kidneys. Nephrology consultation. Continue pressors for now. Hold Aldactone. Hold Lopressor. Hold lisinopril. Condition is critical. We'll consult with nephrology and infectious disease. Cardiology is on the case. We'll continue to follow. Condition is is critical.
--- NOTE | 2019-03-06 09:21 | P.CONS ---
History of Present Illness - Reason for Consult Consult date: 03/06/19 Positive blood culture - History of Present Illness This is a 73-year-old male with known history of ischemic cardiomyopathy along with known history of coronary artery disease and previous aortic valve replacement, AVR, and previous coronary artery bypass surgery. He presented on March 01 because of chest pain and found to have non-STEMI. He underwent cardiac catheterization with Dr. Juarez on 03/03 and the patient was found to have patent stent to the distal left mainstem to proximal circumflex, patent BELTRAN to LAD, chronic totally occluded RCA. Recommendations were mainly to maximize medical management. Patient was apparently having runs of V. tach and a consult was added for Dr. Ho. Patient subsequently underwent a biventricular ICD implantation on March 05. Patient was intubated prior to the procedure as apparently he is unable to lay flat for this. He received 700 mL of fluid during procedure. He was extubated last evening for only 3 minutes and was re- intubated. He was given Lasix 40 mg IV push followed by Lasix drip at 10 mg per hour. The Lasix to was discontinued this morning. Patient remains intubated, on sedation and on levo fed. His chest x-ray this morning reveals a right upper lobe pneumonia and probable heart failure. Patient has been running fevers up to 101.6 on evening of 925. White count 20.6, renal function is worsening with a BUN 45 and creatinine 2.6. Urinalysis was clear with nitrate and leukoesterase negative. Urine output has been on the lower side running about 50 mL per hour or less. Blood culture from 03/04 is group D enterococcus and thus this consult was requested. Review of Systems ROS unobtainable: due to endotracheal tube Past Medical History Past Medical History: Asthma, Coronary Artery Disease (CAD), Chest Pain / Angina, Heart Failure, COPD, GERD/Reflux, Hyperlipidemia, Hypertension, Osteoarthritis (OA) Additional Past Medical History / Comment(s): Artery disease, previous RI, previous history of coronary artery bypass surgery, previous history aortic valve replacement with a bioprosthetic valve, CHF with ejection fraction of 20- 25%, obesity with a BMI of 43, COPD, hypertension, hyperlipidemia, umbilical hernia, previous history of small bowel obstruction with an incarcerated hernia requiring surgical intervention, history of PTSD, generalized anxiety disorder, gout, previous history of VRE. History of Any Multi-Drug Resistant Organisms: None Reported Year Discovered:: 2007 MDRO Source:: SURGICAL INCISION Past Surgical History: Appendectomy, Cardiac Valve Replacement, Cholecystectomy, Coronary Bypass/CABG, Heart Catheterization, Heart Catheterization With Stent, Hernia Repair Additional Past Surgical History / Comment(s): 01/2016 aortic valve replacement with triple bypass, 2016 PCI with stents, R upper quadrant ventral incisional hernia repair, R ankle surgery with rods/pins, exploratory laparotomy while in [place]-pt doesn't recall what was found, colonoscopy, bilateral cataract removals/lens implants. Past Anesthesia/Blood Transfusion Reactions: No Reported Reaction Date of Last Stent Placement:: 03/22/17 Past Psychological History: Anxiety, PTSD Smoking Status: Former smoker Past Alcohol Use History: None Reported Past Drug Use History: None Reported - Past Family History Father Family Medical History: Myocardial Infarction (RI) Additional Family Medical History / Comment(s): CABG. Father had a RI at the age of 72 yrs. Father at the age of 85 yrs. Mother Family Medical History: Myocardial Infarction (RI) Additional Family Medical History / Comment(s): CABG. Mother had a RI in her 70s. She lived to be 88yrs old. Medications and Allergies Home Medications Medication Instructions Recorded Confirmed Type Albuterol Sulfate [Proair Hfa] 2 puff INHALATION RT-QID PRN 01/27/16 03/01/19 History Budesonide-Formot 160-4.5 Mcg 2 puff INHALATION RT-BID PRN 01/27/16 03/01/19 History [Symbicort 160-4.5 Mcg Inhaler] Tiotropium [place] [Spiriva] 1 puff INHALATION RT-DAILY 01/27/16 03/01/19 History Metoprolol Tartrate [Lopressor] 25 mg PO BID #30 tab 02/03/16 03/01/19 Rx Allopurinol [Zyloprim] 100 mg PO HS PRN 01/04/17 03/01/19 History Lisinopril [Zestril] 5 mg PO HS 01/04/17 03/01/19 History Albuterol Nebulized [Ventolin 2.5 mg INHALATION Q4H PRN 03/19/17 03/01/19 History Nebulized] Omeprazole [PriLOSEC] 40 mg PO AC-BRKFST 03/19/17 03/01/19 History Pravastatin Sodium [Pravachol] 10 mg PO HS 03/19/17 03/01/19 History Sildenafil Citrate [Viagra] 100 mg PO DIRECTED PRN 03/19/17 03/01/19 History Aspirin EC [Ecotrin Low Dose] 81 mg PO DAILY 08/29/18 03/01/19 History Spironolactone [Aldactone] 25 mg PO DAILY #30 tab 09/01/18 03/01/19 Rx Furosemide [Lasix] 40 mg PO BID 09/18/18 03/01/19 History Clopidogrel [Plavix] 75 mg PO HS 09/19/18 03/01/19 History Allergies Allergy/AdvReac Type Severity Reaction Status Date / Time levofloxacin [From Levaquin] AdvReac Unknown Verified 03/01/19 15:17 Physical Exam Vitals: Vital Signs Temp Pulse Pulse Pulse Pulse Resp BP 03/06/19 07:48 60 03/06/19 07:22 60 03/06/19 06:00 54 L 24 03/06/19 05:00 53 L 24 102/58 03/06/19 04:00 98.5 F 51 L 24 99/53 03/06/19 03:00 60 24 106/57 03/06/19 02:00 54 L 24 109/55 03/06/19 01:00 56 L 24 95/56 03/05/19 16:45 80 03/05/19 16:26 88 03/05/19 16:00 98.2 F 100 20 03/05/19 13:13 84 03/05/19 13:03 88 03/05/19 11:37 74 18 03/05/19 09:45 88 03/05/19 09:34 88 03/05/19 08:40 94 16 BP BP Pulse Ox 03/06/19 07:48 03/06/19 07:22 03/06/19 06:00 97/53 03/06/19 05:00 97 03/06/19 04:00 98 03/06/19 03:00 98 03/06/19 02:00 99 03/06/19 01:00 99 03/05/19 16:45 03/05/19 16:26 03/05/19 16:00 105/52 97 03/05/19 13:13 03/05/19 13:03 03/05/19 11:37 108/75 97 03/05/19 09:45 03/05/19 09:34 03/05/19 08:40 Intake and Output 03/05/19 03/06/19 03/06/19 22:59 06:59 14:59 Intake Total 850 82.479 10 Output Total 405 50 Balance 850 -322.521 -40 Intake: IV 850 Intake, IV Titration 82.479 10 Amount Furosemide 100 mg In 60 10 Sodium Chloride 0.9% 90 ml @ 10 MG/HR 10 mls/hr IV .Q10H DEANDRA Rx#: [id number] Norepinephrine 4 mg In 22.479 Sodium Chloride 0.9% 250 ml @ 0.05 MCG/KG/MIN 22. 479 mls/hr IV .[id number] DEANDRA Rx#:[id number] Output: Urine 405 50 Other: Voiding Method Indwelling Catheter Weight 124.6 kg Gen: This is a 73-year-old male. He is on sedation, an ICU bed, intubated and on mechanical ventilation. Patient opens eyes to verbal stimuli and touch. HEENT: Head is atraumatic, normocephalic. Pupils equal, round. Sclerae is anicteric. Conjunctiva pink. Oral mucous membranes are moist. Appears patient is edentulous. ET and gastric tube are in place orally. NECK: Supple. No JVD. No lymphadenopathy. No thyromegaly. LUNGS: Diminished bilaterally. No wheezes or rhonchi. No intercostal retractions. HEART: Regular rate and rhythm. No murmur. There is a dressing over the AICD, left upper chest wall, 2 small areas of dried blood. No significant edema around the area. ABDOMEN: Soft. Bowel sounds are present. No masses. No tenderness. No redness under her abdominal fold. Diaz catheter draining clear dmitry urine. EXTREMITIES: Trace bilateral pedal edema. No wounds, cellulitis noted. Dorsalis pedis 1+ bilaterally. NEUROLOGICAL: Patient is sedated. Results Results: Laboratory Results WBC 20.6 k/uL (3.8-10.6) H 03/06/19 02:42 RBC 3.83 m/uL (4.30-5.90) L 03/06/19 02:42 Hgb 11.0 gm/dL (13.0-17.5) L 03/06/19 02:42 Hct 33.8 % (39.0-53.0) L 03/06/19 02:42 MCV 88.3 fL (80.0-100.0) 03/06/19 02:42 MCH 28.7 pg (25.0-35.0) 03/06/19 02:42 MCHC 32.6 g/dL (31.0-37.0) 03/06/19 02:42 RDW 14.4 % (11.5-15.5) 03/06/19 02:42 Plt Count 276 k/uL (150-450) 03/06/19 02:42 Neutrophils % 91 % 03/06/19 02:42 Lymphocytes % 4 % 03/06/19 02:42 Monocytes % 4 % 03/06/19 02:42 Eosinophils % 1 % 03/06/19 02:42 Basophils % 0 % 03/06/19 02:42 Neutrophils # 18.8 k/uL (1.3-7.7) H 03/06/19 02:42 Lymphocytes # 0.8 k/uL (1.0-4.8) L 03/06/19 02:42 Monocytes # 0.8 k/uL (0-1.0) 03/06/19 02:42 Eosinophils # 0.1 k/uL (0-0.7) 03/06/19 02:42 Basophils # 0.0 k/uL (0-0.2) 03/06/19 02:42 Hypochromasia Slight 03/06/19 02:42 Anisocytosis Slight 03/01/19 15:07 PT 11.8 sec (9.0-12.0) 03/01/19 15:07 INR 1.1 (<1.2) 03/01/19 15:07 APTT 53.7 sec (22.0-30.0) H 03/02/19 21:57 Sample Site rrad 03/06/19 04:52 ABG pH 7.48 (7.35-7.45) H 03/06/19 04:52 ABG pCO2 28 mmHg (35-45) L 03/06/19 04:52 ABG pO2 229 mmHg (83-108) H 03/06/19 04:52 ABG HCO3 21 mmol/L (21-25) 03/06/19 04:52 ABG Total CO2 21 mmol/L (19-24) 03/06/19 04:52 ABG O2 Saturation 99.9 % (94-97) H 03/06/19 04:52 ABG Base Excess -3.0 mmol/L 03/06/19 04:52 Manuel Test Yes 03/06/19 04:52 FiO2 60 % 03/06/19 04:52 Sodium 138 mmol/L (137-145) 03/06/19 02:42 Potassium 3.9 mmol/L (3.5-5.1) 03/06/19 02:42 Chloride 103 mmol/L (98-107) 03/06/19 02:42 Carbon Dioxide 20 mmol/L (22-30) L 03/06/19 02:42 Anion Gap 15 mmol/L 03/06/19 02:42 BUN 45 mg/dL (9-20) H 03/06/19 02:42 Creatinine 2.61 mg/dL (0.66-1.25) H 03/06/19 02:42 Est GFR (CKD-EPI)AfAm 27 (>60 ml/min/1.73 sqM) 03/06/19 02:42 Est GFR (CKD-EPI)NonAf 23 (>60 ml/min/1.73 sqM) 03/06/19 02:42 Glucose 157 mg/dL (74-99) H 03/06/19 02:42 POC Glucose (mg/dL) 173 mg/dL (75-99) H 03/05/19 22:22 POC Glu Supervisor [employer]akers ID Barbara Ramirez 03/05/19 22:22 Plasma Lactic Acid [place] 1.8 mmol/L (0.7-2.0) 03/04/19 18:31 Calcium 8.8 mg/dL (8.4-10.2) 03/06/19 02:42 Magnesium 1.9 mg/dL (1.6-2.3) 03/04/19 02:17 Total Bilirubin 0.9 mg/dL (0.2-1.3) 03/01/19 15:07 AST 55 U/L (17-59) 03/01/19 15:07 ALT 60 U/L (21-72) 03/01/19 15:07 Alkaline Phosphatase 154 U/L (38-126) H 03/01/19 15:07 Troponin I 1.080 ng/mL (0.000-0.034) H* 03/02/19 04:09 NT-Pro-B Natriuret Pep 02886 pg/mL 03/01/19 15:07 Total Protein 6.8 g/dL (6.3-8.2) 03/01/19 15:07 Albumin 3.4 g/dL (3.5-5.0) L 03/01/19 15:07 Triglycerides 105 mg/dL (<150) 03/02/19 04:09 Cholesterol 188 mg/dL (<200) 03/02/19 04:09 LDL Cholesterol, Calc 148 mg/dL (0-99) H 03/02/19 04:09 HDL Cholesterol 19 mg/dL (40-60) L 03/02/19 04:09 TSH 3.570 mIU/L (0.465-4.680) 03/04/19 02:17 Urine Color Yellow 03/04/19 23:09 Urine Appearance Clear (Clear) 03/04/19 23:09 Urine pH 5.0 (5.0-8.0) 03/04/19 23:09 Ur Specific [place] 1.013 (1.001-1.035) 03/04/19 23:09 Urine Protein Trace (Negative) H 03/04/19 23:09 Urine Glucose (UA) Negative (Negative) 03/04/19 23:09 Urine Ketones Negative (Negative) 03/04/19 23:09 Urine Blood Negative (Negative) 03/04/19 23:09 Urine Nitrite Negative (Negative) 03/04/19 23:09 Urine Bilirubin Negative (Negative) 03/04/19 23:09 Urine Urobilinogen <2.0 mg/dL (<2.0) 03/04/19 23:09 Ur Leukocyte Esterase Negative (Negative) 03/04/19 23:09 CBC & Chem 7: 03/06/19 02:42 03/06/19 02:42 Labs: Abnormal Lab Results - Last 24 Hours (Table) 03/05/19 03/05/19 03/05/19 Range/Units 11:42 22:22 23:06 WBC (3.8-10.6) k/uL RBC (4.30-5.90) m/uL Hgb (13.0-17.5) gm/dL Hct (39.0-53.0) % Neutrophils # (1.3-7.7) k/uL Lymphocytes # (1.0-4.8) k/uL ABG pH 7.28 L (7.35-7.45) ABG pCO2 51 H (35-45) mmHg ABG pO2 234 H (83-108) mmHg ABG Total CO2 26 H (19-24) mmol/L ABG O2 Saturation 99.3 H (94-97) % Carbon Dioxide (22-30) mmol/L BUN (9-20) mg/dL Creatinine (0.66-1.25) mg/dL Glucose (74-99) mg/dL POC Glucose (mg/dL) 130 H 173 H (75-99) mg/dL 03/06/19 03/06/19 03/06/19 Range/Units 00:03 00:22 02:42 WBC 19.4 H (3.8-10.6) k/uL RBC 3.63 L (4.30-5.90) m/uL Hgb 10.4 L (13.0-17.5) gm/dL Hct 32.9 L (39.0-53.0) % Neutrophils # 17.6 H (1.3-7.7) k/uL Lymphocytes # 0.7 L (1.0-4.8) k/uL ABG pH (7.35-7.45) ABG pCO2 (35-45) mmHg ABG pO2 80 L (83-108) mmHg ABG Total CO2 (19-24) mmol/L ABG O2 Saturation (94-97) % Carbon Dioxide 20 L (22-30) mmol/L BUN 45 H (9-20) mg/dL Creatinine 2.61 H (0.66-1.25) mg/dL Glucose 157 H (74-99) mg/dL POC Glucose (mg/dL) (75-99) mg/dL 03/06/19 03/06/19 Range/Units 02:42 04:52 WBC 20.6 H (3.8-10.6) k/uL RBC 3.83 L (4.30-5.90) m/uL Hgb 11.0 L (13.0-17.5) gm/dL Hct 33.8 L (39.0-53.0) % Neutrophils # 18.8 H (1.3-7.7) k/uL Lymphocytes # 0.8 L (1.0-4.8) k/uL ABG pH 7.48 H (7.35-7.45) ABG pCO2 28 L (35-45) mmHg ABG pO2 229 H (83-108) mmHg ABG Total CO2 (19-24) mmol/L ABG O2 Saturation 99.9 H (94-97) % Carbon Dioxide (22-30) mmol/L BUN (9-20) mg/dL Creatinine (0.66-1.25) mg/dL Glucose (74-99) mg/dL POC Glucose (mg/dL) (75-99) mg/dL Microbiology - Last 24 Hours (Table) 03/04/19 18:31 Blood Culture Gram Stain - Preliminary Blood Blood Culture - Preliminary Group D Enterococcus 03/04/19 18:31 Blood Culture - Final Blood Assessment and Plan Plan: This is a 73-year-old male presented to the hospital with a non-ST RI status post heart catheterization with plan for medical management. Patient was having runs of ventricular tachycardia and known history of severe ischemic cardiomyopathy with EF of 20%. Patient also has history of valvular heart disease status post aortic valve replacement with bioprosthetic valve. Patient was intubated prior to biventricular ICD implantation and failed extubation last night, he was re-intubated, started on IV Lasix followed by Lasix drip and levofed. Consult with Dr. Pyle added for acute hypoxic respiratory failure. Patient is also developing acute kidney injury. Patient is in a septic picture with fever, hypotension, leukocytosis and bacteremia, also new right upper lobe pneumonia is possible. No sign of urinary tract infection. Patient is currently on Zosyn. Repeat blood cultures were obtained on 926 which her status received and repeat blood cultures ordered this morning. Continue supportive care. Further recommendations as patient progresses. The above dictated assessment and findings were discussed with Dr. Nguyễn. The impression and plan of care have been directed as dictated. Rajani Garces nurse practitioner acting as scribe for Dr. Nguyễn.
[2019-03-06] MEDS: PANTOPRAZOLE 40 MG TABLET PO SCH (09:24)
[2019-03-06] MEDS: FUROSEMIDE 40 MG TAB PO SCH ×2 (09:25→15:32)
[2019-03-06] MEDS: ASPIRIN 325 MG TAB PO SCH (09:25)
[2019-03-06] MEDS: FUROSEMIDE 100 MG in SODIUM CHLORIDE 0.9% 90 ML IV SCH (09:25)
[2019-03-06] MEDS: SPIRONOLACTONE 25 MG TAB PO SCH (09:26)
[2019-03-06] MEDS: CHLORHEXIDINE GLUCONATE 15 ML CUP MUCOUS MEM SCH ×2 (09:39→21:38)
[2019-03-06] MEDS: PROPOFOL 1,000 MG in EMPTY BAG 1 BAG IV SCH ×4 (09:39→23:05)
--- NOTE | 2019-03-06 11:12 | P.PN ---
Subjective Progress Note Date: 03/06/19 This 73-year-old gentleman with history of ischemic heart disease, aortic valve replacement, previous bypass surgery and stent placement of the left main was admitted with complaints of chest pain and increasing shortness of breath. He had a cardiac catheterization and was found to have patent stent in the left main and circumflex. He was seen by Dr. Ho for evaluation for possible biventricular pacemaker implantation with defibrillator. Patient was still orthopneic and in CHF and patient was started on IV Lasix tip. He is scheduled to have IV pacemaker with a defibrillator tomorrow probably with general anesthesia. Patient is otherwise stable today and graft. 03/06/2019: This patient had biventricular AICD implantation yesterday under general anesthesia. Apparently there was difficulty extubating him. It appears that patient might have developed some fluid overload. Patient was given IV Lasix tip. Patient is doing well. His creatinine went up to 2.[address] Ho was discontinued IV Lasix drip. It appears that patient had fever on the night up to 101. Blood cultures were reported yesterday afternoon as being positive for enterococcus. Construction Technician. The patient may be septic. Repeat blood tests are being done. Patient didn't have any more fever since that one episode. Is intubated. No plans for extubation at this time. Repeat chest x-ray today shows improvement of the infiltrates seen on the right upper lobe suggestive of possible pulmonary edema that has cleared. Patient is on vasopressor for blood pressure support. Patient is also on antibiotic therapy. His device was checked today but seems to function normally. Continue current medical therapy with antibiotics and also vasopressors. Discontinue IV Lasix. May consider ID consult Objective - Vital Signs Vital signs: Vital Signs Temp 99.1 F 03/06/19 08:00 Pulse 58 L 03/06/19 10:30 Resp 18 03/06/19 10:30 BP 114/59 03/06/19 10:30 Pulse Ox 100 03/06/19 10:30 Intake & Output 03/05/19 03/06/19 03/06/19 18:59 06:59 18:59 Intake Total 200 832.479 10 Output Total 400 405 325 Balance -200 427.479 -315 Weight 118 kg 124.6 kg Intake: IV 200 650 Intake, IV Titration 182.479 10 Amount Furosemide 100 mg In 60 10 Sodium Chloride 0.9% 90 ml @ 10 MG/HR 10 mls/hr IV .Q10H DEANDRA Rx#: [id number] Norepinephrine 4 mg In 22.479 Sodium Chloride 0.9% 250 ml @ 0.05 MCG/KG/MIN 22. 479 mls/hr IV .[id number] DEANDRA Rx#:[id number] Propofol 1,000 mg In 100.000 Empty Bag 1 bag @ Titrate IV .Q0M DEANDRA Rx#: [id number] Output: Urine 400 405 325 Other: Voiding Method Toilet Indwelling Catheter - Exam GENERAL EXAM: Patient is intubated and sedated HEENT: Normocephalic. NECK: No masses, no nuchal rigidity. CHEST: No chest wall deformity. LUNGS: Diminished breath sounds HEART: S1 and S2 normal ABDOMEN: No hepatosplenomegaly, normal bowel sounds, no guarding or rigidity. SKIN: No rashes CENTRAL NERVOUS SYSTEM: Deferred EXTREMITIES: No edema - Labs CBC & Chem 7: 03/06/19 02:42 03/06/19 02:42 Labs: Abnormal Lab Results - Last 24 Hours (Table) 03/05/19 03/05/19 03/05/19 Range/Units 11:42 22:22 23:06 WBC (3.8-10.6) k/uL RBC (4.30-5.90) m/uL Hgb (13.0-17.5) gm/dL Hct (39.0-53.0) % Neutrophils # (1.3-7.7) k/uL Lymphocytes # (1.0-4.8) k/uL ABG pH 7.28 L (7.35-7.45) ABG pCO2 51 H (35-45) mmHg ABG pO2 234 H (83-108) mmHg ABG Total CO2 26 H (19-24) mmol/L ABG O2 Saturation 99.3 H (94-97) % Carbon Dioxide (22-30) mmol/L BUN (9-20) mg/dL Creatinine (0.66-1.25) mg/dL Glucose (74-99) mg/dL POC Glucose (mg/dL) 130 H 173 H (75-99) mg/dL 03/06/19 03/06/19 03/06/19 Range/Units 00:03 00:22 02:42 WBC 19.4 H (3.8-10.6) k/uL RBC 3.63 L (4.30-5.90) m/uL Hgb 10.4 L (13.0-17.5) gm/dL Hct 32.9 L (39.0-53.0) % Neutrophils # 17.6 H (1.3-7.7) k/uL Lymphocytes # 0.7 L (1.0-4.8) k/uL ABG pH (7.35-7.45) ABG pCO2 (35-45) mmHg ABG pO2 80 L (83-108) mmHg ABG Total CO2 (19-24) mmol/L ABG O2 Saturation (94-97) % Carbon Dioxide 20 L (22-30) mmol/L BUN 45 H (9-20) mg/dL Creatinine 2.61 H (0.66-1.25) mg/dL Glucose 157 H (74-99) mg/dL POC Glucose (mg/dL) (75-99) mg/dL 03/06/19 03/06/19 Range/Units 02:42 04:52 WBC 20.6 H (3.8-10.6) k/uL RBC 3.83 L (4.30-5.90) m/uL Hgb 11.0 L (13.0-17.5) gm/dL Hct 33.8 L (39.0-53.0) % Neutrophils # 18.8 H (1.3-7.7) k/uL Lymphocytes # 0.8 L (1.0-4.8) k/uL ABG pH 7.48 H (7.35-7.45) ABG pCO2 28 L (35-45) mmHg ABG pO2 229 H (83-108) mmHg ABG Total CO2 (19-24) mmol/L ABG O2 Saturation 99.9 H (94-97) % Carbon Dioxide (22-30) mmol/L BUN (9-20) mg/dL Creatinine (0.66-1.25) mg/dL Glucose (74-99) mg/dL POC Glucose (mg/dL) (75-99) mg/dL Microbiology - Last 24 Hours (Table) 03/04/19 18:31 Blood Culture Gram Stain - Preliminary Blood Blood Culture - Preliminary Group D Enterococcus 03/04/19 18:31 Blood Culture - Final Blood Assessment and Plan (1) Acute on chronic systolic CHF (congestive heart failure) Current Visit: Yes Status: Acute Code(s): I50.23 - ACUTE ON CHRONIC SYSTOLIC (CONGESTIVE) HEART FAILURE SNOMED Code(s): 102686200 (2) NSTEMI (non-ST elevated myocardial infarction) Current Visit: Yes Status: Acute Code(s): I21.4 - NON-ST ELEVATION (NSTEMI) MYOCARDIAL INFARCTION SNOMED Code(s): 30712531 (3) Status post aortic valve replacement Current Visit: Yes Status: Acute Code(s): Z95.2 - PRESENCE OF PROSTHETIC HEART VALVE SNOMED Code(s): 0707648538442 (4) Cardiomyopathy Current Visit: Yes Status: Acute Code(s): I42.9 - CARDIOMYOPATHY, UNSPECIF IED SNOMED Code(s): 71469778 (5) COPD (chronic obstructive pulmonary disease) Current Visit: Yes Status: Acute Code(s): J44.9 - CHRONIC OBSTRUCTIVE PULMONARY DISEASE, UNSPECIFIED SNOMED Code(s): 36323716 (6) Cardiac defibrillator in place Current Visit: Yes Status: Acute Code(s): Z95.810 - PRESENCE OF AUTOMATIC (IMPLANTABLE) CARDIAC DEFIBRILLATOR SNOMED Code(s): 647227711 (7) Sepsis Current Visit: Yes Status: Acute Code(s): A41.9 - SEPSIS, UNSPECIFIED ORGANISM SNOMED Code(s): 85940790 Plan: We'll repeat blood cultures. Continue current medical therapy. ID consult. Repeat echocardiogram. If blood cultures continue to be positive, may consider LISSET examination.
--- NOTE | 2019-03-06 11:36 | XR ---
EXAMINATION TYPE: XR chest 1V DATE OF EXAM: 03/06/2019 COMPARISON: 03/05/2019 INDICATION: Lead placement check TECHNIQUE: Single frontal view of the chest is obtained. Position is semiupright. FINDINGS: The heart size is at the upper limits of normal for size.. The pulmonary vasculature is normal. The lungs are clear. Pacemaker overlies left chest. No pneumothorax is evident. Endotracheal tube tip is above the yoseph. Nasogastric tube appears to transverse the thorax with tip in left abdomen. Sternotomy wires are pre sent from prior cardiac valve surgery IMPRESSION: 1. No acute pulmonary process. 2. Multiple lines and catheters discussed above
--- NOTE | 2019-03-06 11:38 | P.PN ---
Subjective This is a pleasant 73 years old male with past medical history of coronary artery disease patient , , heart failure, asthma, GERD, hyperlipidemia, h ypertension, osteoarthritis, valvular heart disease. Patient was admitted with non-STEMI, he underwent cardiac cath on 03/03/2019, showing patent stents and coronaries. Also patient underwent elective EP study yesterday and status post AICD placement, patient is currently in the ICU intubated and could not provide information, he was extubated for short time before he needed reintubation. Information was taken from the staff at the medical records as patient cannot contribute to history . He has low ejection fraction 20-25%. Patient is obese and he needed low dose of pressors. He has distended abdomen, possibly from fat. No focal neurological findings. Also he has positive blood culture with enterococcus and trending up leukocytes. Infectious disease was consulted, patient is currently on Zosyn. Also patient creatinine is trending up however patient is making reasonable urine output, he was on Lasix drip but this was stopped. Review of systems: N/a Active Medications Generic Name Dose Route Start Last Admin Trade Name Freq PRN Reason Stop Dose Admin Acetaminophen 650 mg 03/05/19 18:53 Tylenol Tab PO Q6HR PRN Mild Pain Albuterol Sulfate 2.5 mg 03/01/19 20:10 Ventolin Nebulized INHALATION Q4H PRN sob Allopurinol 100 mg 03/01/19 20:10 Zyloprim PO HS PRN gout Aspirin 325 mg 03/02/19 09:00 03/06/19 09:25 Aspirin PO Not Given DAILY DEANDRA Bisacodyl 10 mg 03/01/19 20:12 Dulcolax PO DAILY PRN Constipation Chlorhexidine Gluconate 15 ml 03/06/19 09:00 03/06/19 09:39 Peridex MUCOUS MEM 15 ml BID DEANDRA Administration Clopidogrel Bisulfate 75 mg 03/01/19 21:00 03/06/19 00:48 Plavix PO Not Given HS DEANDRA Furosemide 40 mg 03/06/19 09:00 03/06/19 09:25 Lasix PO Not Given BID@0900,1600 DEANDRA Heparin Sodium (Porcine) 5,000 unit 03/06/19 00:00 03/06/19 09:40 Heparin SQ 5,000 unit Q8HR DEANDRA Administration Piperacillin Sod/Tazobactam 100 mls @ 25 mls/hr 03/06/19 00:00 03/06/19 09:40 Sod 3.375 gm/ Sodium Chloride IVPB 25 mls/hr Q8HR DEANDRA Administration Propofol 1,000 mg/ IV Solution 100 mls @ 0 mls/hr 03/05/19 22:30 03/06/19 09:39 IV 40 mcg/kg/min .Q0M DEANDRA 29.904 mls/hr Administration Protocol Titrate Norepinephrine Bitartrate 4 mg 254 mls @ 22.479 mls/hr 03/05/19 23:45 03/06/19 02:00 / Sodium Chloride IV 0.08 mcg/kg/min .[id number] DEANDRA 35.966 mls/hr Titration Protocol 0.05 MCG/KG/MIN Ipratropium [place] 0.5 mg 03/02/19 08:00 03/06/19 11:05 Atrovent Nebulized INHALATION 0.5 mg RT-QID DEANDRA Administration Nitroglycerin 0.4 mg 03/01/19 16:04 Nitrostat SUBLINGUAL Q5M PRN Chest Pain Pantoprazole Sodium 40 mg 03/02/19 07:30 03/06/19 09:24 Protonix PO Not Given AC-BRKFST DEANDRA Pravastatin Sodium 20 mg 03/03/19 21:00 03/06/19 00:50 Pravachol PO Not Given HS DEANDRA Sodium Chloride 10 ml 03/05/19 21:00 03/06/19 09:26 Saline Flush IV 10 ml Q12HR DEANDRA Administration Temazepam 30 mg 03/01/19 20:11 03/03/19 20:03 Restoril PO 30 mg HS PRN Administration Insomnia Objective - Vital Signs Vital signs: Vital Signs Temp 99.1 F 03/06/19 08:00 Pulse 55 L 03/06/19 11:06 Resp 18 03/06/19 10:30 BP 114/59 03/06/19 10:30 Pulse Ox 100 03/06/19 10:30 Intake & Output 03/05/19 03/06/19 03/06/19 18:59 06:59 18:59 Intake Total 200 832.479 10 Output Total 400 405 325 Balance -200 427.479 -315 Weight 118 kg 124.6 kg Intake: IV 200 650 Intake, IV Titration 182.479 10 Amount Furosemide 100 mg In 60 10 Sodium Chloride 0.9% 90 ml @ 10 MG/HR 10 mls/hr IV .Q10H DEANDRA Rx#: [id number] Norepinephrine 4 mg In 22.479 Sodium Chloride 0.9% 250 ml @ 0.05 MCG/KG/MIN 22. 479 mls/hr IV .[id number] DEANDRA Rx#:[id number] Propofol 1,000 mg In 100.000 Empty Bag 1 bag @ Titrate IV .Q0M DEANDRA Rx#: [id number] Output: Urine 400 405 325 Other: Voiding Method Toilet Indwelling Catheter - Exam -GENERAL: The patient is intubated and sedated HEENT: Pupils are round and equally reacting to light. EOMI. No scleral icterus. No conjunctival pallor. Normocephalic, atraumatic. No pharyngeal erythema. No thyromegaly. CARDIOVASCULAR: S1 and S2 present. No murmurs, rubs, or gallops. PULMONARY: Chest is clear to auscultation, no wheezing or crackles. ABDOMEN: Soft, nontender, nondistended, normoactive bowel sounds. No palpable organomegaly. MUSCULOSKELETAL: No joint swelling or deformity. EXTREMITIES: No cyanosis, clubbing, or pedal edema. NEUROLOGICAL: Gross neurological examination did not reveal any focal deficits. SKIN: No rashes. no petechiae. - Labs CBC & Chem 7: 03/06/19 02:42 03/06/19 02:42 Labs: Abnormal Lab Results - Last 24 Hours (Table) 03/05/19 03/05/19 03/05/19 Range/Units 11:42 22:22 23:06 WBC (3.8-10.6) k/uL RBC (4.30-5.90) m/uL Hgb (13.0-17.5) gm/dL Hct (39.0-53.0) % Neutrophils # (1.3-7.7) k/uL Lymphocytes # (1.0-4.8) k/uL ABG pH 7.28 L (7.35-7.45) ABG pCO2 51 H (35-45) mmHg ABG pO2 234 H (83-108) mmHg ABG Total CO2 26 H (19-24) mmol/L ABG O2 Saturation 99.3 H (94-97) % Carbon Dioxide (22-30) mmol/L BUN (9-20) mg/dL Creatinine (0.66-1.25) mg/dL Glucose (74-99) mg/dL POC Glucose (mg/dL) 130 H 173 H (75-99) mg/dL 03/06/19 03/06/19 03/06/19 Range/Units 00:03 00:22 02:42 WBC 19.4 H (3.8-10.6) k/uL RBC 3.63 L (4.30-5.90) m/uL Hgb 10.4 L (13.0-17.5) gm/dL Hct 32.9 L (39.0-53.0) % Neutrophils # 17.6 H (1.3-7.7) k/uL Lymphocytes # 0.7 L (1.0-4.8) k/uL ABG pH (7.35-7.45) ABG pCO2 (35-45) mmHg ABG pO2 80 L (83-108) mmHg ABG Total CO2 (19-24) mmol/L ABG O2 Saturation (94-97) % Carbon Dioxide 20 L (22-30) mmol/L BUN 45 H (9-20) mg/dL Creatinine 2.61 H (0.66-1.25) mg/dL Glucose 157 H (74-99) mg/dL POC Glucose (mg/dL) (75-99) mg/dL 03/06/19 03/06/19 Range/Units 02:42 04:52 WBC 20.6 H (3.8-10.6) k/uL RBC 3.83 L (4.30-5.90) m/uL Hgb 11.0 L (13.0-17.5) gm/dL Hct 33.8 L (39.0-53.0) % Neutrophils # 18.8 H (1.3-7.7) k/uL Lymphocytes # 0.8 L (1.0-4.8) k/uL ABG pH 7.48 H (7.35-7.45) ABG pCO2 28 L (35-45) mmHg ABG pO2 229 H (83-108) mmHg ABG Total CO2 (19-24) mmol/L ABG O2 Saturation 99.9 H (94-97) % Carbon Dioxide (22-30) mmol/L BUN (9-20) mg/dL Creatinine (0.66-1.25) mg/dL Glucose (74-99) mg/dL POC Glucose (mg/dL) (75-99) mg/dL Microbiology - Last 24 Hours (Table) 03/04/19 18:31 Blood Culture Gram Stain - Preliminary Blood Blood Culture - Preliminary Group D Enterococcus 03/04/19 18:31 Blood Culture - Final Blood Assessment and Plan Assessment: Septic shock with enterococcus septicemia None STEMI, status post cardiac cath showing patent stents Acute on chronic systolic congestive heart failure with ejection fraction 20- 25%, on the top of history of severe ischemic cardiomyopathy. Status post EP study and AICD placement on 03/05/2019 Acute kidney injury, secondary to shock states and possible contrast-induced nephropathy acute hypoxic respiratory failure, status post intubation and mechanical ventilation History of coronary artery disease History of valvular heart disease Hypertension Hyperlipidemia COPD/asthma Plan: This is a 73 years old male who presents with septic shock and heart disease. Continue with antibiotics as per infectious disease recommendation, follow-up final culture results. Continue with process as per critical care team recommendations. Follow-up cardiology recommendations. Follow-up WBC and creatinine.Labs and medication were reviewed. Nephrology consult for renal disease. Continue same treatment. Continue with symptomatic treatment. Resume home medication. Monitor lytes and vitals. DVT and GI prophylaxis. Further recommendations of the clinical course of the patient DVT prophylaxis: Subcutaneous heparin GI Prophylaxis: Protonix Prognosis is guarded
--- NOTE | 2019-03-06 11:45 | US ---
EXAMINATION TYPE: US kidneys/renal and bladder DATE OF EXAM: 03/06/2019 COMPARISON: NONE CLINICAL HISTORY: BEATRIZ. EXAM MEASUREMENTS: Right Kidney: 11.5 x 6.4 x 5.7 cm Left Kidney: 12.0 x 5.6 x 5.0 cm Right Kidney: No hydronephrosis or masses seen Left Kidney: No hydronephrosis or masses seen Bladder: not visualized, zavala IMPRESSION: Normal renal ultrasound as visualized.
[2019-03-06 11:49] LABS: Glucose,Whole Blood 161 mg/dL (75-99)
--- NOTE | 2019-03-06 12:16 | CONS ---
CONSULTATION REASON FOR CONSULT: Renal failure. HISTORY OF PRESENT ILLNESS: Patient is a 73-year-old male who was initially admitted to the hospital on 03/01/2019 with complaints of shortness of breath. The patient was supposed to have a pacemaker placed, which was scheduled as an outpatient. During his hospitalization, he was noted to have runs of nonsustained ventricular tachycardia. The patient had his pacemaker placed yesterday. However, he was not able to be extubated. He was started on Lasix drip. Urine output did not improve much. The patient has been hypotensive after the procedure as well and is currently maintained on Levophed at about 10 mcg. Serum creatinine was 0.8 on 03/02/2019. It went up to 1.39 and today it is at 2.6 mg/dL. The patient has been having fever with T-max of 101.6 Fahrenheit on 03/04/2019. His blood culture was positive on 03/04/2019 with group D enterococcus. The patient has not received any IV contrast. PAST MEDICAL HISTORY: Hypertension, ischemic cardiomyopathy, history of valvular heart disease, status post aortic valve replacement, history of non ST-elevation SC, status post cardiac catheterization on 03/03/2019. Past medical history also includes cardiomyopathy EF 20% to 25%, COPD, hypertension, previous history of VRE, hyperlipidemia, umbilical hernia. PAST SURGICAL HISTORY: Appendectomy, aortic valve replacement, cholecystectomy, cardiac catheterization, coronary stent placement, ventral hernia repair, right ankle surgery, exploratory laparotomy in [facility], cataract surgery bilaterally. SOCIAL HISTORY: Negative for current smoking. Patient is a former smoker. No history of drug abuse or alcohol abuse. MEDICATIONS: Medications prior to admission included Spiriva, Lopressor, Zyloprim, Zestril, Prilosec, Pravachol, Viagra, Aldactone, Lasix, Plavix, aspirin. ALLERGIES: Allergies include LEVAQUIN. PHYSICAL EXAMINATION: On examination, patient is currently sedated. He is on the vent. Blood pressure was this morning 107/68, heart rate 71 per minute. He is afebrile. EXAMINATION OF THE HEART: S1, S2. EXAMINATION OF THE LUNGS: Bilateral breath sounds are heard. Abdomen is soft, nontender. Examination of lower extremities shows trace edema bilaterally. MARKETING PROJECT MANAGER EXAM: Not done. LABS: Labs show hemoglobin 11.0, white cell count 20.6, sodium 138, potassium 3.9, BUN 45, serum creatinine 2.6, calcium 8.8. ASSESSMENT: 1. Acute kidney injury secondary to contrast nephropathy as well as hypotension and sepsis. The patient had a cardiac catheterization on 03/03/2019. Currently he is not on any nephrotoxic medications. Lisinopril has been discontinued. The patient was started on Lasix drip last night, however, it is now discontinued. I will maintain the patient off of the Lasix drip. Currently, there is no issue in oxygenation. In fact, the FiO2 has been decreased. I will hold off on IV fluids and diuretics and we will repeat chest x-ray in a.m. unless patient's oxygen requirement increases. We can hold off on aggressive diuresis. 2. Sepsis with positive blood cultures for group D enterococcus, maintained on antibiotics. 3. Status post non ST elevation myocardial infarction, status post status post cardiac catheterization on 03/03. 4. Vent-dependent respiratory failure, multifactorial. 5. Cardiomyopathy, ejection fraction 25% to 30%. 6. Possible pneumonia. 7. Status post pacemaker placement yesterday. PLAN: Continue off of Lasix drip. Check CVP. Continue with pressors. Continue empiric antibiotics. Avoid any nephrotoxic agents. Agree with discontinuation of lisinopril. Repeat chest x-ray in a.m. Check ultrasound of the kidneys. Thank you for this consultation. We will continue to follow the patient with you during his hospitalization. ARAML / DANIELLEN: [id number] /
[2019-03-06] MEDS ORDERED: MORPHINE SULFATE 4 MG/ML SYRINGE IVP STA (14:50)
[2019-03-06] MEDS ORDERED: MORPHINE SULFATE 10 MG/ML 1ML VIAL IVP STA (15:16)
[2019-03-06] MEDS: ALBUTEROL NEBULIZED 2.5 MG/3 ML INHALATION PRN (15:31)
--- NOTE | 2019-03-06 15:35 | XR ---
EXAMINATION TYPE: XR chest 1V confirm line [facility] DATE OF EXAM: 03/06/2019 COMPARISON: 03/06/2019 earlier exam INDICATION: Line placement TECHNIQUE: Single frontal view of the chest is obtained. FINDINGS: The heart size is moderately prominent. The pulmonary vasculature is normal. There is silhouetting left diaphragm. Pacemaker overlies left chest Endotracheal tube tip is above the yoseph. Nasogastric tube transverses the thorax with tip in left a rm the abdomen. There is placement of a right central venous catheter with the tip in the proximal ri ght atrium. No pneumothorax is evident. IMPRESSION: 1. No pneumothorax post right central venous catheter placement. Tip is in the proximal right atrium. 2. Moderate cardiomegaly. 3. Left lower lobe infiltrate 4. Multiple lines and catheters discussed above.
[2019-03-06] MEDS ORDERED: GENTAMICIN PER PHARMACY MISCELLANE PRN (16:08)
[2019-03-06] MEDS ORDERED: GENTAMICIN 100 MG in SODIUM CHLORIDE 0.9% 100 ML IVPB SCH (17:00)
[2019-03-06] MEDS: AMPICILLIN-SULBACTAM 3 GM in SODIUM CHLORIDE 0.9% 100 ML IVPB SCH (18:22)
--- NOTE | 2019-03-06 23:17 | P.CON ---
Consult Note - . Consult date: 03/06/19 Assessment/Plan:: This is a 73-year-old male with known history of ischemic cardiomyopathy along with known history of coronary artery disease and previous aortic valve replacement, AVR, and previous coronary artery bypass surgery. He presented on March 01 because of chest pain and found to have non-STEMI. He underwent cardiac catheterization with Dr. Juarez on 03/03 and the patient was found to have patent stent to the distal left mainstem to proximal circumflex, patent BELTRAN to LAD, chronic totally occluded RCA. Recommendations were mainly to maximize medical management. Patient was apparently having runs of V. tach and a consult was added for Dr. Ho. Patient subsequently underwent a biventricular ICD implantation on March 05. Patient was intubated prior to the procedure as apparently he is unable to lay flat for this. He received 700 mL of fluid during procedure. He was extubated last evening for only 3 minutes and was re- intubated. He was given Lasix 40 mg IV push followed by Lasix drip at 10 mg per hour. The Lasix to was discontinued this morning. Patient remains intubated, on sedation and on levo fed. His chest x-ray this morning reveals a right upper lobe pneumonia and probable heart failure. Patient has been running fevers up to 101.6 on evening of 925. White count 20.6, renal function is worsening with a BUN 45 and creatinine 2.6. Urinalysis was clear with nitrate and leukoesterase negative. Urine output has been on the lower side running about 50 mL per hour or less. Blood culture from 03/04 is group D enterococcus and thus this consult was requested. Please see the consult note as dictated by nurse practitioner Evon Rajani Mckinleygavino. 73-year-old gentleman with aortic valve replacement and prior CABG presented to Hospital and some he in worsening of his ischemic cardiomyopathy. He underwent biventricular ICD implantable pacemaker March 05. The he developed a fever and there are now positive blood cultures. The laboratory has identified enterococcus in the blood cultures. There is no specific other site of infection at this time other than the bacteremia. With aortic valve replacement concerns underlying endocarditis. Consequently antimicrobial therapy is transitioned to ampicillin sulbactam and gentamicin in synergistic dosing dosed by the pharmacy. Aware of his renal insufficiency however until bacteremia clears and there is a definitive alternative cause of the bacteremia would require gentamicin therapy for synergy. Follow blood cultures are requested. The patient has had central line and A-line just placed by the laundry tech. He is receiving fluid resuscitation and vasopressor therapy. I agree with evaluation, assessment and plan as dictated by nurse practitioner Mrs. Rajani Garces.
[2019-03-06 23:58] LABS: Glucose,Whole Blood 110 mg/dL (75-99)
[2019-03-07] MEDS: HEPARIN SODIUM,PORCINE 5,000 UNIT/ML 1 ML VIAL SQ SCH ×3 (01:02→16:17)
[2019-03-07] MEDS: NOREPINEPHRINE 4 MG in SODIUM CHLORIDE 0.9% 250 ML IV SCH ×3 (02:02→22:30)
[2019-03-07 03:21] LABS: Basophils # (A) 0.1 k/uL (0-0.2); Basophils % (A) 1 %; Eosinophils # (A) 0.4 k/uL (0-0.7); Eosinophils % (A) 4 %; HCT 31.7 % (39.0-53.0); HGB 10.5 gm/dL (13.0-17.5); Hypochromasia Slight; Lymphocytes # (A) 0.7 k/uL (1.0-4.8); Lymphocytes % (A) 7 %; MCH 28.9 pg (25.0-35.0); MCHC 33.2 g/dL (31.0-37.0); MCV 87.1 fL (80.0-100.0); Monocytes # (A) 0.6 k/uL (0-1.0); Monocytes % (A) 6 %; Neutrophils # (A) 8.6 k/uL (1.3-7.7); Neutrophils % (A) 82 %; Platelet Count 214 k/uL (150-450); RBC 3.63 m/uL (4.30-5.90); RDW 14.3 % (11.5-15.5); WBC 10.5 k/uL (3.8-10.6)
[2019-03-07 03:37] LABS: Calcium 8.5 mg/dL (8.4-10.2); Magnesium 2.2 mg/dL (1.6-2.3); Phosphorus 4.7 mg/dL (2.5-4.5); Potassium 3.8 mmol/L (3.5-5.1)
[2019-03-07 05:36] LABS: ABG Base Excess -0.3 mmol/L; ABG HCO3 24 mmol/L (21-25); ABG Oxygen Saturation 98.9 % (94-97); ABG PCO2 34 mmHg (35-45); ABG PH 7.45 (7.35-7.45); ABG PO2 131 mmHg (83-108); ABG TCO2 25 mmol/L (19-24); Allen Test Performed? Yes
--- NOTE | 2019-03-07 06:04 | XR ---
EXAMINATION TYPE: XR chest 1V portable DATE OF EXAM: 03/07/2019 HISTORY: Tube placement. REFERENCE: Previous study dated 03/06/2019. FINDINGS: There is been a midline sternotomy. There is a multilead pacing device in place on the left . The patient is ET tube, NG tube and right internal jugular catheters remain in place, unchanged in appearance. There is left basilar airspace disease. This is very similar in appearance to the previous study. The re is a left-sided effusion there is some vascular congestion without richard edema. IMPRESSION: NO SIGNIFICANT INTERVAL CHANGE IN THE APPEARANCE OF THE CHEST.
[2019-03-07 06:08] LABS: Glucose,Whole Blood 134 mg/dL (75-99)
[2019-03-07] MEDS: INSULIN ASPART (NovoLOG) 100 UNIT/ML VIAL SQ SCH ×3 (06:54→18:14)
[2019-03-07] MEDS: AMPICILLIN-SULBACTAM 3 GM in SODIUM CHLORIDE 0.9% 100 ML IVPB SCH ×2 (06:55→18:11)
[2019-03-07] MEDS: IPRATROPIUM 0.5 MG/2.5 ML NEBU INHALATION SCH ×4 (07:39→20:37)
[2019-03-07] MEDS: PANTOPRAZOLE 40 MG TABLET PO SCH (07:55)
[2019-03-07] MEDS: ASPIRIN 325 MG TAB PO SCH (08:46)
[2019-03-07] MEDS: FUROSEMIDE 40 MG TAB PO SCH ×2 (08:46→15:36)
[2019-03-07] MEDS: CHLORHEXIDINE GLUCONATE 15 ML CUP MUCOUS MEM SCH ×2 (08:54→20:50)
[2019-03-07] MEDS: PROPOFOL 1,000 MG in EMPTY BAG 1 BAG IV SCH ×5 (08:55→22:03)
--- NOTE | 2019-03-07 11:44 | P.PN ---
Subjective Progress Note Date: 03/07/19 Seen and examined for the follow-up of acute kidney injury. Still on vent with minimal settings. Objective - Vital Signs Vital signs: Vital Signs Temp 99.4 F 03/07/19 08:00 Pulse 72 03/07/19 11:25 Resp 18 03/07/19 10:00 BP 76/53 03/06/19 15:00 Pulse Ox 96 03/07/19 10:00 Intake & Output 03/06/19 03/07/19 03/07/19 18:59 06:59 18:59 Intake Total 726.039 646.215 40 Output Total 850 630 330 Balance -123.961 16.215 -290 Weight 121.5 kg 121.5 kg Intake: IV 60 90 40 KVO 60 90 40 Intake, IV Titration 666.039 556.215 Amount Furosemide 100 mg In 10 Sodium Chloride 0.9% 90 ml @ 10 MG/HR 10 mls/hr IV .Q10H DEANDRA Rx#: [id number] Norepinephrine 4 mg In 477.292 356.215 Sodium Chloride 0.9% 250 ml @ 0.05 MCG/KG/MIN 22. 479 mls/hr IV .[id number] DEANDRA Rx#:[id number] Propofol 1,000 mg In 178.747 200 Empty Bag 1 bag @ Titrate IV .Q0M DEANDRA Rx#: [id number] Output: Urine 850 630 330 Other: Voiding Method Indwelling Catheter Indwelling Catheter Indwelling Catheter ABP, PAP, CO, CI - Last Documented Arterial Blood Pressure 105/49 - Exam No acute distress Oral intubation S1-S2 heard Lungs clear Edema - Labs CBC & Chem 7: 03/07/19 03:10 03/07/19 03:10 Labs: Abnormal Lab Results - Last 24 Hours (Table) 03/06/19 03/06/19 03/07/19 Range/Units 11:45 23:54 03:10 RBC (4.30-5.90) m/uL Hgb (13.0-17.5) gm/dL Hct (39.0-53.0) % Neutrophils # (1.3-7.7) k/uL Lymphocytes # (1.0-4.8) k/uL ABG pCO2 (35-45) mmHg ABG pO2 (83-108) mmHg ABG Total CO2 (19-24) mmol/L ABG O2 Saturation (94-97) % BUN 45 H (9-20) mg/dL Creatinine 2.14 H (0.66-1.25) mg/dL Glucose 123 H (74-99) mg/dL POC Glucose (mg/dL) 161 H 110 H (75-99) mg/dL Phosphorus 4.7 H (2.5-4.5) mg/dL 03/07/19 03/07/19 03/07/19 Range/Units 03:10 05:34 06:05 RBC 3.63 L (4.30-5.90) m/uL Hgb 10.5 L (13.0-17.5) gm/dL Hct 31.7 L (39.0-53.0) % Neutrophils # 8.6 H (1.3-7.7) k/uL Lymphocytes # 0.7 L (1.0-4.8) k/uL ABG pCO2 34 L (35-45) mmHg ABG pO2 131 H (83-108) mmHg ABG Total CO2 25 H (19-24) mmol/L ABG O2 Saturation 98.9 H (94-97) % BUN (9-20) mg/dL Creatinine (0.66-1.25) mg/dL Glucose (74-99) mg/dL POC Glucose (mg/dL) 134 H (75-99) mg/dL Phosphorus (2.5-4.5) mg/dL Microbiology - Last 24 Hours (Table) 03/06/19 09:55 Blood Culture Gram Stain - Preliminary Blood 03/06/19 10:10 Blood Culture Gram Stain - Preliminary Blood 03/06/19 02:42 Blood Culture Gram Stain - Preliminary Blood Blood Culture - Preliminary Group D Enterococcus 03/05/19 17:44 Blood Culture Gram Stain - Final Blood Blood Culture - Final Enterococcus faecalis 03/06/19 11:12 Gram Stain - Preliminary Sputum Sputum Culture - Preliminary 03/06/19 10:10 Blood Culture - Final Blood 03/06/19 09:55 Blood Culture - Final Blood 03/04/19 18:31 Blood Culture Gram Stain - Final Blood Blood Culture - Final Enterococcus faecalis 03/05/19 17:44 Blood Culture - Final Blood 03/06/19 02:42 Blood Culture - Final Blood Assessment and Plan Assessment: #1 nonoliguric acute kidney injury secondary to ischemic ATN. No previous creatinine to compare. #2 metabolic acidosis improved #3 ventilator-dependent respiratory failure #4 hyperkalemia resolved Plan: #1 continue diuresis, creatinine continue to improve #2 avoid nephrotoxic agents and hypotensive episodes
[2019-03-07 12:01] LABS: Glucose,Whole Blood 123 mg/dL (75-99)
--- NOTE | 2019-03-07 12:02 | PN ---
PROGRESS NOTE Mr. Tiwari is a 73-year-old male with known history of severe ischemic cardiomyopathy, status post aortic valve replacement, status post coronary artery bypass grafting, who had a chronically occluded RCA, underwent biventricular ICD implant. He was on mechanical ventilation. Remains intubated. He had a positive blood culture for enterococcus group D. He remains intubated and sedated. Oxygenation is stable. He has a known history of severe cardiomyopathy with a normal-functioning bioprosthetic aortic valve and moderate mitral regurgitation. He remains intubated at this time, hemodynamically stable. He has no evidence of ventricular ectopic activity. He continues to be on aspirin, Plavix 75 mg daily, Lasix 40 mg twice a day, pravastatin. PHYSICAL EXAMINATION: Blood pressure 105/50 with a heart rate in the 60s. LUNGS: No wheezes anteriorly. HEART: S1, S2 with a systolic murmur. No diastolic murmur. No rub. ABDOMEN: Soft, obese, nontender. EXTREMITIES: Plus 1 to 2 edema bilaterally. LAB DATA: Lab data revealed a hemoglobin of 10.5, white blood cell of 10.5, BUN and creatinine of 45 and 2.14, improved compared to yesterday. His potassium is 3.8. IMPRESSION: 1. Respiratory failure requiring mechanical ventilation. 2. History of coronary artery disease, status post coronary artery bypass grafting. 3. Status post biventricular automated implantable cardioverter defibrillator implantation. 4. Status post aortic valve replacement. 5. Positive blood culture. 6. Chronic obstructive lung disease. 7. Chronic kidney disease. RECOMMENDATIONS: At this time we will continue supportive care. Continue to follow the renal function. If he has any persistent positive blood cultures, then the patient will require a LISSET to rule out infectious process on his bioprosthetic valve. MMODL / IJN: [id number] /
--- NOTE | 2019-03-07 13:22 | P.PN ---
Subjective This is a pleasant 73 years old male with past medical history of coronary artery disease patient , , heart failure, asthma, GERD, hyperlipidemia, h ypertension, osteoarthritis, valvular heart disease. Patient was admitted with non-STEMI, he underwent cardiac cath on 03/03/2019, showing patent stents and coronaries. Also patient underwent elective EP study yesterday and status post AICD placement, patient is currently in the ICU intubated and could not provide information, he was extubated for short time before he needed reintubation. Information was taken from the staff at the medical records as patient cannot contribute to history . He has low ejection fraction 20-25%. Patient is obese and he needed low dose of pressors. He has distended abdomen, possibly from fat. No focal neurological findings. Also he has positive blood culture with enterococcus and trending up leukocytes. Infectious disease was consulted, patient is currently on Zosyn. Also patient creatinine is trending up however patient is making reasonable urine output, he was on Lasix drip but this was stopped. 03/07/2019 Patient in the ICU intubated and sedated, his vitals with blood pressure 130/54, and he is saturating 98%. His WBC is back to normal at 10.5. Creatinine is at 2.14 with slight improvement down from 2.6 yesterday. He has several blood culture positive for enterococcus. Chest x-ray showing no significant change. Patient has been evaluated by material inspector and charrer, charrer considering LISSET if blood culture remains positive. Patient also was started on gentamicin and Unasyn as per infectious disease recommendation Review of systems: N/a Active Medications Generic Name Dose Route Start Last Admin Trade Name Freq PRN Reason Stop Dose Admin Acetaminophen 650 mg 03/05/19 18:53 Tylenol Tab PO Q6HR PRN Mild Pain Albuterol Sulfate 2.5 mg 03/01/19 20:10 03/06/19 15:31 Ventolin Nebulized INHALATION 2.5 mg Q4H PRN Administration sob Allopurinol 100 mg 03/01/19 20:10 Zyloprim PO HS PRN gout Aspirin 325 mg 03/02/19 09:00 03/07/19 08:46 Aspirin PO Not Given DAILY DEANDRA Bisacodyl 10 mg 03/01/19 20:12 Dulcolax PO DAILY PRN Constipation Chlorhexidine Gluconate 15 ml 03/06/19 09:00 03/07/19 08:54 Peridex MUCOUS MEM 15 ml BID DEANDRA Administration Clopidogrel Bisulfate 75 mg 03/01/19 21:00 03/06/19 21:38 Plavix PO 75 mg HS DEANDRA Administration Furosemide 40 mg 03/06/19 09:00 03/07/19 08:46 Lasix PO Not Given BID@0900,1600 DEANDRA Heparin Sodium (Porcine) 5,000 unit 03/06/19 00:00 03/07/19 08:54 Heparin SQ 5,000 unit Q8HR DEANDRA Administration Propofol 1,000 mg/ IV Solution 100 mls @ 0 mls/hr 03/05/19 22:30 03/07/19 12:39 IV 40 mcg/kg/min .Q0M DEANDRA 29.904 mls/hr Administration Protocol Titrate Norepinephrine Bitartrate 4 mg 254 mls @ 22.479 mls/hr 03/05/19 23:45 03/07/19 12:52 / Sodium Chloride IV 0.06 mcg/kg/min .[id number] DEANDRA 26.975 mls/hr Titration Protocol 0.05 MCG/KG/MIN Ampicillin Sodium/Sulbactam 100 mls @ 200 mls/hr 03/06/19 18:00 03/07/19 06:55 Sodium 3 gm/ Sodium Chloride IVPB 200 mls/hr Q12H DEANDRA Administration Gentamicin Sulfate 100 mg/ 102.5 mls @ 102.5 mls/hr 03/06/19 17:00 03/06/19 16:59 Sodium Chloride IVPB 102.5 mls/hr Q24H DEANDRA Administration Insulin Aspart 0 unit 03/07/19 06:00 03/07/19 12:25 Novolog SQ Not Given Q6H [facility] Protocol Ipratropium [place] 0.5 mg 03/02/19 08:00 03/07/19 11:13 Atrovent Nebulized INHALATION 0.5 mg RT-QID DEANDRA Administration Nitroglycerin 0.4 mg 03/01/19 16:04 Nitrostat SUBLINGUAL Q5M PRN Chest Pain Pantoprazole Sodium 40 mg 03/02/19 07:30 03/07/19 07:55 Protonix PO Not Given [facility] Pravastatin Sodium 20 mg 03/03/19 21:00 09/27/19 21:54 Pravachol PO 20 mg HS DEANDRA Administration Sodium Chloride 10 ml 03/05/19 21:00 03/07/19 08:54 Saline Flush IV 10 ml Q12HR DEANDRA Administration Objective - Vital Signs Vital signs: Vital Signs Temp 99.6 F 03/07/19 12:00 Pulse 63 03/07/19 12:30 Resp 19 03/07/19 12:30 BP 76/53 03/06/19 15:00 Pulse Ox 98 03/07/19 12:30 Intake & Output 03/06/19 03/07/19 03/07/19 18:59 06:59 18:59 Intake Total 726.039 646.215 324.120 Output Total 115 380 2877 Balance -123.961 16.215 -680.880 Weight 121.5 kg 121.5 kg Intake: IV 60 90 70 KVO 60 90 70 Intake, IV Titration 666.039 556.215 254.120 Amount Furosemide 100 mg In 10 Sodium Chloride 0.9% 90 ml @ 10 MG/HR 10 mls/hr IV .Q10H DEANDRA Rx#: [id number] Norepinephrine 4 mg In 477.292 356.215 154.120 Sodium Chloride 0.9% 250 ml @ 0.05 MCG/KG/MIN 22. 479 mls/hr IV .[id number] DEANDRA Rx#:[id number] Propofol 1,000 mg In 178.747 200 100 Empty Bag 1 bag @ Titrate IV .Q0M DEANDRA Rx#: [id number] Output: Gastric Drainage 500 Urine 850 630 505 Other: Voiding Method Indwelling Catheter Indwelling Catheter Indwelling Catheter ABP, PAP, CO, CI - Last Documented Arterial Blood Pressure 130/54 - Exam -GENERAL: The patient is intubated and sedated HEENT: Pupils are round and equally reacting to light. EOMI. No scleral icterus. No conjunctival pallor. Normocephalic, atraumatic. No pharyngeal erythema. No thyromegaly. CARDIOVASCULAR: S1 and S2 present. No murmurs, rubs, or gallops. PULMONARY: Chest is clear to auscultation, no wheezing or crackles. ABDOMEN: Soft, nontender, nondistended, normoactive bowel sounds. No palpable organomegaly. MUSCULOSKELETAL: No joint swelling or deformity. EXTREMITIES: No cyanosis, clubbing, or pedal edema. NEUROLOGICAL: Gross neurological examination did not reveal any focal deficits. SKIN: No rashes. no petechiae. - Labs CBC & Chem 7: 03/07/19 03:10 03/07/19 03:10 Labs: Abnormal Lab Results - Last 24 Hours (Table) 03/06/19 03/07/19 03/07/19 Range/Units 23:54 03:10 03:10 RBC 3.63 L (4.30-5.90) m/uL Hgb 10.5 L (13.0-17.5) gm/dL Hct 31.7 L (39.0-53.0) % Neutrophils # 8.6 H (1.3-7.7) k/uL Lymphocytes # 0.7 L (1.0-4.8) k/uL ABG pCO2 (35-45) mmHg ABG pO2 (83-108) mmHg ABG Total CO2 (19-24) mmol/L ABG O2 Saturation (94-97) % BUN 45 H (9-20) mg/dL Creatinine 2.14 H (0.66-1.25) mg/dL Glucose 123 H (74-99) mg/dL POC Glucose (mg/dL) 110 H (75-99) mg/dL Phosphorus 4.7 H (2.5-4.5) mg/dL 03/07/19 03/07/19 03/07/19 Range/Units 05:34 06:05 11:58 RBC (4.30-5.90) m/uL Hgb (13.0-17.5) gm/dL Hct (39.0-53.0) % Neutrophils # (1.3-7.7) k/uL Lymphocytes # (1.0-4.8) k/uL ABG pCO2 34 L (35-45) mmHg ABG pO2 131 H (83-108) mmHg ABG Total CO2 25 H (19-24) mmol/L ABG O2 Saturation 98.9 H (94-97) % BUN (9-20) mg/dL Creatinine (0.66-1.25) mg/dL Glucose (74-99) mg/dL POC Glucose (mg/dL) 134 H 123 H (75-99) mg/dL Phosphorus (2.5-4.5) mg/dL Microbiology - Last 24 Hours (Table) 03/06/19 09:55 Blood Culture Gram Stain - Preliminary Blood 03/06/19 10:10 Blood Culture Gram Stain - Preliminary Blood 03/06/19 02:42 Blood Culture Gram Stain - Preliminary Blood Blood Culture - Preliminary Group D Enterococcus 03/05/19 17:44 Blood Culture Gram Stain - Final Blood Blood Culture - Final Enterococcus faecalis 03/06/19 11:12 Gram Stain - Preliminary Sputum Sputum Culture - Preliminary 03/06/19 10:10 Blood Culture - Final Blood 03/06/19 09:55 Blood Culture - Final Blood 03/04/19 18:31 Blood Culture Gram Stain - Final Blood Blood Culture - Final Enterococcus faecalis 03/05/19 17:44 Blood Culture - Final Blood 03/06/19 02:42 Blood Culture - Final Blood Assessment and Plan Assessment: Septic shock with enterococcus septicemia None STEMI, status post cardiac cath showing patent stents Acute on chronic systolic congestive heart failure with ejection fraction 20- 25%, on the top of history of severe ischemic cardiomyopathy. Status post EP study and AICD placement on 03/05/2019 Acute kidney injury, secondary to shock states and possible contrast-induced nephropathy acute hypoxic respiratory failure, status post intubation and mechanical venti lation History of coronary artery disease History of valvular heart disease Hypertension Hyperlipidemia COPD/asthma Plan: This is a 73 years old male who presents with septic shock and heart disease. Continue with antibiotics as per infectious disease recommendation, follow-up final culture results. Continue with process as per critical care team recommendations. Follow-up cardiology recommendations. Follow-up WBC and creatinine.Labs and medication were reviewed. Nephrology consult for renal disease. Continue same treatment. Continue with symptomatic treatment. Resume home medication. Monitor lytes and vitals. DVT and GI prophylaxis. Further recommendations of the clinical course of the patient DVT prophylaxis: Subcutaneous heparin GI Prophylaxis: Protonix Prognosis is guarded
--- NOTE | 2019-03-07 14:13 | P.PN ---
Subjective Progress Note Date: 03/07/19 This is a 71-year-old male patient with known history of ischemic cardiomyopathy along with known history of coronary artery disease and previous aortic valve replacement, AVR, and previous coronary artery bypass surgery, who presented to the hospital because of chest pain and non-STEMI. The patient has had previous catheterizations with stenting done in the distal left main as well as the proximal circumflex. He has a chronically totally occluded RCA. As mentioned, the patient was admitted with chest pain or shortness of breath and acute non- STEMI. The patient underwent another cardiac catheterization and the patient was found to have taken stent to the distal left mainstem to proximal circu mflex, patent BELTRAN to LAD, chronic totally occluded RCA. Recommendations were mainly to maximize medical management. The patient was being treated for congestion heart failure. He was receiving Lasix drip and he was having ongoing orthopnea. He was taken yesterday to the Dicer Operator and the patient was given biventricular pacing/AICD. Noted postop, the patient was extubated. He became short of breath and went into significant amount of respiratory distress and within 10 minutes she had to be reintubated. He was brought into the intensive care unit intubated on a mechanical ventilator. Initial blood gases showed a pH of 7.28 with a pCO2 of 51 and pO2 of 234. Necessary vent changes were done. The most recent blood gas showed a pH of 7.48 with a pCO2 of 28 and pO2 of 229. The morning vent settings include a tidal volume 400 with a rate of 18 and FiO2 of 40% with 5. The setting was adjusted based on the most recent blood gas. I noted that the patient is also on pressors and overnight the patient has required norepinephrine infusion and currently is running at 0.1 mcg/kg per trupti te. The patient is also on Lasix drip at 10 mg an hour. He is producing urine output. However, the patient has developed an acute kidney injury. Creatinine was normal at the time of admission on 02/27/2019 and there has been progressive rise in the creatinine which is up to 2.6 at this point in time. He was he was developing fevers with a temperature 11.6 on 03/04/2019. The patient has blood culture sent a blood culture came back positive for enterococcus group D. The patient was on cefazolin. IV Zosyn was added by the primary care team. This morning, the patient is sedated with propofol is currently running at 50 mics. His, comfortable. He is producing urine output. Her net fluid balance is -642 mL for yesterday. His cardiac rhythm is paced. His white cell count is 19.4. He is obviously septic condition with a positive blood culture. UA the time of admission was negative. He has a Diaz catheter in place. Abdomen is soft. His umbilical hernia. Surgical wound site over the left biventricular pacemaker is dry clean and intact. No significant orotracheal secretions. Chest x-ray from today shows cardiomegaly and lower lobe consolidation as the patient is a left lower lobe consolidation of the right upper lobe! The echocardiogram at shown an ejection fraction of 20-25%. There is moderate concentric left ventricular hypertrophy. There is severe global hypokinesis. No pericardial effusion. The peak gradient across the aortic valve was 35 mmHg. It is a no rmal functioning bioprosthetic valve. There is moderate mitral regurgitation. Mild pulmonary hypertension. on 03/07/2019 the patient remains sedated and intubated on mechanical ventilator. The patient is on propofol for sedation. The patient is also on a mechanical ventilator on assist control mode with a tidal volume of 000 and the rate of 18 with an FiO2 of 40% and PEEP of 5. The chest x-ray from today shows stable findings and there is left lower lobe consolidation/effusion. ET tube is in a good location. The left ear showed a pH of 7.44 with a pCO2 of 34 and pO2 of 131. Based on this, there is a component of respiratory alkalosis and I dropped a respiratory rate down to 14. The telephone was kept at 500 for now. I took this patient off the Lasix therapy yesterday as the patient's CVP was running low and the patient was also developing acute kidney injury. Today CVP is also low measuring as high as 4-5 millimeters of mercury. Based on that, the patient was started on oral Lasix set of IV Lasix for cardiology. He is producing adequate amount of urine output. Creatinine is also improving and is down to 2.1. The patient is afebrile. The patient was seen by infectious disease. Antibiotic adjustments were done and the patient was placed on a combination of Unasyn and gentamicin. No clear indication for endocarditis. The patient has 3 positive blood culture that was positive for E faecalis, in the patient was simplified back to Unasyn and gentamicin was discontinued as the patient was found to be having a Enterococcus faecalis resistant to gentamicin.. The patient is producing adequate amount of urine output. He is still on pressors and the present doses been weaned down to 0.07 micrograms per kilogram per minute of norepinephrine infusion. The patient will be started on enteral feeding for nutritional support. Cardiology is on the case. Cardiac rhythm remains paced. No significant electrolyte imbalance in the patient's white cell count is down to 10.5. Objective - Vital Signs Vital signs: Vital Signs Temp 99.6 F 03/07/19 12:00 Pulse 71 03/07/19 13:00 Resp 18 03/07/19 13:00 BP 76/53 03/06/19 15:00 Pulse Ox 95 03/07/19 13:00 Intake & Output 03/06/19 03/07/19 03/07/19 18:59 06:59 18:59 Intake Total 726.039 646.215 324.120 Output Total 860 474 9029 Balance -123.961 16.215 -680.880 Weight 121.5 kg 121.5 kg Intake: IV 60 90 70 KVO 60 90 70 Intake, IV Titration 666.039 556.215 254.120 Amount Furosemide 100 mg In 10 Sodium Chloride 0.9% 90 ml @ 10 MG/HR 10 mls/hr IV .Q10H DEANDRA Rx#: [id number] Norepinephrine 4 mg In 477.292 356.215 154.120 Sodium Chloride 0.9% 250 ml @ 0.05 MCG/KG/MIN 22. 479 mls/hr IV .[id number] DEANDRA Rx#:[id number] Propofol 1,000 mg In 178.747 200 100 Empty Bag 1 bag @ Titrate IV .Q0M DEANDRA Rx#: [id number] Output: Gastric Drainage 500 Urine 850 630 505 Other: Voiding Method Indwelling Catheter Indwelling Catheter Indwelling Catheter ABP, PAP, CO, CI - Last Documented Arterial Blood Pressure 119/52 - Exam Gen. appearance, comfortable likely distress. Sedated. Currently on a propofol drip infusion. The patient currently has an orogastric and orotracheal tube and both of them are in place. Head exam was generally normal. There was no scleral icterus or corneal arcus. Mucous membranes were moist. Neck was supple and without jugular venous distension, thyromegaly, or carotid bruits. Carotids were easily palpable bilaterally. There was no adenopathy. Lungs sounds are diminished bilaterally. No rhonchi. No wheezes. The patient is a pacemaker pocket over the left anterior chest area and the overlying skin is dry clean and intact. Heart sounds are regular and there paced at this point in time. No cervical murmurs appreciated. Sternotomy scar is dry clean and intact. No right ventricular heave or thrill. Abdominal exam revealed normal bowel sounds. The abdomen was soft, non-tender, and without masses, organomegaly, or appreciable enlargement of the abdominal aorta. Examination of the extremities revealed easily palpable radial, femoral and pedal pulses. There was no cyanosis, clubbing or edema. There is trace edema lo wer extremities bilaterally. Examination of the skin revealed no evidence of significant rashes, suspicious appearing nevi or other concerning lesions. Neurologic the patient is sedated. He was moving all 4 extremities and lower degree of sedation. His RAAS scale is -1 - Labs CBC & Chem 7: 03/07/19 03:10 03/07/19 03:10 Labs: Abnormal Lab Results - Last 24 Hours (Table) 03/06/19 03/07/19 03/07/19 Range/Units 23:54 03:10 03:10 RBC 3.63 L (4.30-5.90) m/uL Hgb 10.5 L (13.0-17.5) gm/dL Hct 31.7 L (39.0-53.0) % Neutrophils # 8.6 H (1.3-7.7) k/uL Lymphocytes # 0.7 L (1.0-4.8) k/uL ABG pCO2 (35-45) mmHg ABG pO2 (83-108) mmHg ABG Total CO2 (19-24) mmol/L ABG O2 Saturation (94-97) % BUN 45 H (9-20) mg/dL Creatinine 2.14 H (0.66-1.25) mg/dL Glucose 123 H (74-99) mg/dL POC Glucose (mg/dL) 110 H (75-99) mg/dL Phosphorus 4.7 H (2.5-4.5) mg/dL 03/07/19 03/07/19 03/07/19 Range/Units 05:34 06:05 11:58 RBC (4.30-5.90) m/uL Hgb (13.0-17.5) gm/dL Hct (39.0-53.0) % Neutrophils # (1.3-7.7) k/uL Lymphocytes # (1.0-4.8) k/uL ABG pCO2 34 L (35-45) mmHg ABG pO2 131 H (83-108) mmHg ABG Total CO2 25 H (19-24) mmol/L ABG O2 Saturation 98.9 H (94-97) % BUN (9-20) mg/dL Creatinine (0.66-1.25) mg/dL Glucose (74-99) mg/dL POC Glucose (mg/dL) 134 H 123 H (75-99) mg/dL Phosphorus (2.5-4.5) mg/dL Microbiology - Last 24 Hours (Table) 03/06/19 09:55 Blood Culture Gram Stain - Preliminary Blood 03/06/19 10:10 Blood Culture Gram Stain - Preliminary Blood 03/06/19 02:42 Blood Culture Gram Stain - Preliminary Blood Blood Culture - Preliminary Group D Enterococcus 03/05/19 17:44 Blood Culture Gram Stain - Final Blood Blood Culture - Final Enterococcus faecalis 03/06/19 11:12 Gram Stain - Preliminary Sputum Sputum Culture - Preliminary 03/06/19 10:10 Blood Culture - Final Blood 03/06/19 09:55 Blood Culture - Final Blood 03/04/19 18:31 Blood Culture Gram Stain - Final Blood Blood Culture - Final Enterococcus faecalis 03/05/19 17:44 Blood Culture - Final Blood 03/06/19 02:42 Blood Culture - Final Blood Assessment and Plan Plan: 1 acute hypoxic respiratory failure, multifactorial. The patient may have an underlying pneumonia. However he is in heart failure/pulmonary edema. He is hemodynamically unstable and hypotensive. The patient is currently intubated on a mechanical ventilator.the patient continues to be on a mechanical ventilator. Mr. ventilator changes were done. Chest x-ray findings are stable for now. The patient has a mild component of respiratory alkalosis on today's blood gas. 2 coronary artery disease with previous bypass surgery. The patient was hospitalized for an acute non-STEMI and chest pain. The patient had an acute non-STEMI underwent cardiac catheterization and the BELTRAN to LAD and the rest of the stents were patent and he was offered medical management 3 severe ischemic cardiomyopathy with an ejection fraction of 20-25% post ins ertion of a biventricular pacemaker/defibrillator 4 aortic valve replacement with bioprosthetic valve. Echocardiogram shows a normal functioning valve with moderate degree of mitral regurgitation mild pulmonary hypertension. 5 septic shock with Enterococcus faecalis and the patient is currently on a combination of Unasyn and gentamicin covering for the potential of endocarditis 90 the patient is a left prosthetic aortic valve. 6 acute kidney injury, consider secondary to sepsis versus contrast nephropathy, Improving and the creatinine is down to 2.1 7 COPD 8 hypertension, history of 9 hyperlipidemia 10 generalized anxiety disorder/PTSD. 11 obesity with a BMI of 43 Plan Continue vent support. Necessary ventilator changes were done. ration has 3 blood cultures are positive for Enterococcus faecalis. The patient has a endovascular infection such as infective endocarditis. My recommendations for cardiology is to proceed with LISSET. We'll discuss this with the blocking machine operator acc ordingly. Meanwhile, the patient will be gradually weaned off the pressors. He on oral Lasix. Initiate the patient on Levaquin for nutritional support. Continue monitoring the fever pattern. Wean off norepinephrine infusion to maintain a mean arterial pressure above 65. Continue the supportive care. No weaning trials for today. continue IV Unasyn. Discontinue gentamicin as Enterococcus faecalis was resistant. We'll continue to follow make further recommendations based on his progress.a critically care evaluation was done and more than 30 minutes. Time with Patient: Greater than 30
--- NOTE | 2019-03-07 15:32 | ECHOF ---
Referral Reason:Chest pain and cardiomyopathy MEASUREMENTS -------- HEIGHT: 170.2 cm WEIGHT: 124.3 kg BP: RVIDd: 3.0 cm (< 3.3) IVSd: 1.2 cm (0.6 - 1.1) LVIDd: 3.9 cm (3.9 - 5.3) LVPWd: 1.4 cm (0.6 - 1.1) IVSs: 1.8 cm LVIDs: 3.3 cm LVPWs: 1.6 cm Ao Diam: 3.5 cm (2.0 - 3.7) AV Cusp: 1.9 cm (1.5 - 2.6) LA Diam: 3.8 cm (2.7 - 3.8) MV EXCURSION: 19.089 mm (> 18.000) MV EF SLOPE: 55 mm/s (70 - 150) EPSS: 1.7 cm MV E Anant: 0.94 m/s MV DecT: 347 ms MV A Anant: 0.63 m/s MV E/A Ratio: 1.51 AV maxP.51 mmHg AV meanP.31 mmHg RAP: 5.00 mmHg RVSP: 24.18 mmHg FINDINGS -------- Sinus rhythm. Pacerwire seen in RV and RA. This was a technically difficult study with suboptimal views. Pt. on a vent. The left ventricular size is normal. There is mild concentric left ventricular hypertrophy. There is severe global hypokinesis of LV . Overall left ventricular systolic function is severely impair ed with, an EF between 20 - 25 %. The RV was not well visualized. The left atrium was not well visualized. The right atrium was not well visualized. Lumason used Peak/mean gradient across the Aortic Valve is 48.51mmHg / 29.31mmHg. Normally functioning bioprosth etic valve. Valve appears calcified. The mitral valve leaflets are mildly thickened. Mild mitral regurgitation is present. Mild tricuspid regurgitation present. Right ventricular systolic pressure is normal at < 35 mmHg. The pulmonic valve was not well visualized. There is no pulmonic regurgitation present. The aortic root size is normal. IVC Not well visulized. The pulmonary veins were not recorded. There is no pericardial effusion. CONCLUSIONS -------- 1. Pacerwire seen in RV and RA. 2. This was a technically difficult study with suboptimal views. 3. Pt. on a vent. 4. The left ventricular size is normal. 5. There is mild concentric left ventricular hypertrophy. 6. There is severe global hypokinesis of LV . 7. Overall left ventricular systolic function is severely impaired with, an EF between 20 - 25 %. 8. The RV was not well visualized. 9. The left atrium was not well visualized. 10. The right atrium was not well visualized. 11. Normally functioning bioprosthetic valve. Valve appears calcified. 12. The pulmonary veins were not recorded. 13. Lumason used 14. Peak/mean gradient across the Aortic Valve is 48.51mmHg / 29.31mmHg. 15. The mitral valve leaflets are mildly thickened. 16. Mild mitral regurgitation is present. 17. Mild tricuspid regurgitation present. 18. Right ventricular systolic pressure is normal at < 35 mmHg. 19. There is no pulmonic regurgitation present. 20. The aortic root size is normal. 21. IVC Not well visulized. 22. There is no pericardial effusion. CIS COORDINATOR: Fela Hernandez RDCS
[2019-03-07 18:10] LABS: Glucose,Whole Blood 129 mg/dL (75-99)
[2019-03-07] MEDS: PRAVASTATIN SODIUM 20 MG TAB PO SCH (20:49)
[2019-03-07] MEDS: CLOPIDOGREL 75 MG TAB PO SCH (20:52)
[2019-03-08 00:17] LABS: Glucose,Whole Blood 132 mg/dL (75-99)
[2019-03-08] MEDS: HEPARIN SODIUM,PORCINE 5,000 UNIT/ML 1 ML VIAL SQ SCH ×3 (00:21→15:37)
[2019-03-08] MEDS: INSULIN ASPART (NovoLOG) 100 UNIT/ML VIAL SQ SCH ×4 (00:21→17:26)
[2019-03-08] MEDS: PROPOFOL 1,000 MG in EMPTY BAG 1 BAG IV SCH ×6 (01:35→21:00)
[2019-03-08 04:13] LABS: Calcium 8.5 mg/dL (8.4-10.2); Magnesium 2.5 mg/dL (1.6-2.3); Phosphorus 3.5 mg/dL (2.5-4.5); Potassium 4.3 mmol/L (3.5-5.1)
[2019-03-08 04:19] LABS: Basophils % (A) 0 %; Eosinophils # (A) 0.5 k/uL (0-0.7); Eosinophils % (A) 5 %; HCT 31.8 % (39.0-53.0); HGB 10.4 gm/dL (13.0-17.5); Hypochromasia Slight; Lymphocytes # (A) 0.8 k/uL (1.0-4.8); Lymphocytes % (A) 8 %; MCH 28.7 pg (25.0-35.0); MCHC 32.6 g/dL (31.0-37.0); MCV 88.2 fL (80.0-100.0); Mean Platelet Volume 7.6; Monocytes # (A) 0.6 k/uL (0-1.0); Monocytes % (A) 6 %; Neutrophils # (A) 8.3 k/uL (1.3-7.7); Neutrophils % (A) 80 %; Platelet Count 198 k/uL (150-450); RBC 3.61 m/uL (4.30-5.90); RDW 14.3 % (11.5-15.5); WBC 10.5 k/uL (3.8-10.6)
[2019-03-08 04:44] LABS: ABG Base Excess 1.9 mmol/L; ABG HCO3 26 mmol/L (21-25); ABG PCO2 38 mmHg (35-45); ABG PH 7.44 (7.35-7.45); ABG PO2 104 mmHg (83-108); ABG TCO2 27 mmol/L (19-24); Allen Test Performed? Yes
[2019-03-08] MEDS: AMPICILLIN-SULBACTAM 3 GM in SODIUM CHLORIDE 0.9% 100 ML IVPB SCH ×3 (05:44→21:04)
[2019-03-08 06:05] LABS: Glucose,Whole Blood 155 mg/dL (75-99)
[2019-03-08] MEDS: PANTOPRAZOLE 40 MG TABLET PO SCH (06:42)
[2019-03-08] MEDS: NOREPINEPHRINE 4 MG in SODIUM CHLORIDE 0.9% 250 ML IV SCH ×2 (06:45→17:27)
[2019-03-08] MEDS: IPRATROPIUM 0.5 MG/2.5 ML NEBU INHALATION SCH ×4 (07:14→18:52)
--- NOTE | 2019-03-08 08:06 | XR ---
EXAMINATION TYPE: XR chest 1V portable DATE OF EXAM: 03/08/2019 HISTORY: Tube placement. REFERENCE: Previous study dated 03/07/2019. FINDINGS: There has been a midline sternotomy. There is a multilead pacing device in place on the lef t. The patient is NG tube, ET tube and right internal jugular catheter remain in place unchanged in appe arance. There is dense left-sided consolidation. There is vascular congestion and mild edema. There are small , bilateral effusions, greater on left than the right. IMPRESSION: 1. CONTINUING LEFT BASILAR AIRSPACE DISEASE. 2. BILATERAL EFFUSIONS. 3. WORSENING CHANGES OF CONGESTIVE HEART FAILURE.
[2019-03-08] MEDS ORDERED: HYDROmorphone 1 MG/ML 1 ML SYRINGE IVP STA (08:39)
--- NOTE | 2019-03-08 08:47 | P.PN ---
Subjective Progress Note Date: 03/08/19 This is a 71-year-old male patient with known history of ischemic cardiomyopathy along with known history of coronary artery disease and previous aortic valve replacement, AVR, and previous coronary artery bypass surgery, who presented to the hospital because of chest pain and non-STEMI. The patient has had previous catheterizations with stenting done in the distal left main as well as the proximal circumflex. He has a chronically totally occluded RCA. As mentioned, the patient was admitted with chest pain or shortness of breath and acute non- STEMI. The patient underwent another cardiac catheterization and the patient was found to have taken stent to the distal left mainstem to proximal circu mflex, patent BELTRAN to LAD, chronic totally occluded RCA. Recommendations were mainly to maximize medical management. The patient was being treated for congestion heart failure. He was receiving Lasix drip and he was having ongoing orthopnea. He was taken yesterday to the [facility] and the patient was given biventricular pacing/AICD. Noted postop, the patient was extubated. He became short of breath and went into significant amount of respiratory distress and within 10 minutes she had to be reintubated. He was brought into the intensive care unit intubated on a mechanical ventilator. Initial blood gases showed a pH of 7.28 with a pCO2 of 51 and pO2 of 234. Necessary vent changes were done. The most recent blood gas showed a pH of 7.48 with a pCO2 of 28 and pO2 of 229. The morning vent settings include a tidal volume 400 with a rate of 18 and FiO2 of 40% with 5. The setting was adjusted based on the most recent blood gas. I noted that the patient is also on pressors and overnight the patient has required norepinephrine infusion and currently is running at 0.1 mcg/kg per trupti te. The patient is also on Lasix drip at 10 mg an hour. He is producing urine output. However, the patient has developed an acute kidney injury. Creatinine was normal at the time of admission on 02/27/2019 and there has been progressive rise in the creatinine which is up to 2.6 at this point in time. He was he was developing fevers with a temperature 11.6 on 03/04/2019. The patient has blood culture sent a blood culture came back positive for enterococcus group D. The patient was on cefazolin. IV Zosyn was added by the primary care team. This morning, the patient is sedated with propofol is currently running at 50 mics. His, comfortable. He is producing urine output. Her net fluid balance is -642 mL for yesterday. His cardiac rhythm is paced. His white cell count is 19.4. He is obviously septic condition with a positive blood culture. UA the time of admission was negative. He has a Diaz catheter in place. Abdomen is soft. His umbilical hernia. Surgical wound site over the left biventricular pacemaker is dry clean and intact. No significant orotracheal secretions. Chest x-ray from today shows cardiomegaly and lower lobe consolidation as the patient is a left lower lobe consolidation of the right upper lobe! The echocardiogram at shown an ejection fraction of 20-25%. There is moderate concentric left ventricular hypertrophy. There is severe global hypokinesis. No pericardial effusion. The peak gradient across the aortic valve was 35 mmHg. It is a no rmal functioning bioprosthetic valve. There is moderate mitral regurgitation. Mild pulmonary hypertension. on 03/07/2019 the patient remains sedated and intubated on mechanical ventilator. The patient is on propofol for sedation. The patient is also on a mechanical ventilator on assist control mode with a tidal volume of 000 and the rate of 18 with an FiO2 of 40% and PEEP of 5. The chest x-ray from today shows stable findings and there is left lower lobe consolidation/effusion. ET tube is in a good location. The left ear showed a pH of 7.44 with a pCO2 of 34 and pO2 of 131. Based on this, there is a component of respiratory alkalosis and I dropped a respiratory rate down to 14. The telephone was kept at 500 for now. I took this patient off the Lasix therapy yesterday as the patient's CVP was running low and the patient was also developing acute kidney injury. Today CVP is also low measuring as high as 4-5 millimeters of mercury. Based on that, the patient was started on oral Lasix set of IV Lasix for cardiology. He is producing adequate amount of urine output. Creatinine is also improving and is down to 2.1. The patient is afebrile. The patient was seen by infectious disease. Antibiotic adjustments were done and the patient was placed on a combination of Unasyn and gentamicin. No clear indication for endocarditis. The patient has 3 positive blood culture that was positive for E faecalis, in the patient was simplified back to Unasyn and gentamicin was discontinued as the patient was found to be having a Enterococcus faecalis resistant to gentamicin.. The patient is producing adequate amount of urine output. He is still on pressors and the present doses been weaned down to 0.07 micrograms per kilogram per minute of norepinephrine infusion. The patient will be started on enteral feeding for nutritional support. Cardiology is on the case. Cardiac rhythm remains paced. No significant electrolyte imbalance in the patient's white cell count is down to 10.5. 03/08/2019, the patient remains intubated on a mechanical ventilator. The patient remains hemodynamically unstable requiring pressors and the norepinephrine infusion is running at 0.08 mcg/kg per minute. He is also on Prinivil at 40 mics per KG. The patient a mechanical ventilator on assist control mode with a tidal volume of 500 and rate of 18 with an FiO2 of 40% and a PEEP of 5. Chest x-ray is unchanged compared to yesterday and there are some white pulmonary vessel congestion. The patient is producing 25 mL of urine output on an hourly basis. Net fluid balance is positive to 11 mL over the past 24 hours. He is currently on oral Lasix. He is also on norepinephrine infusi on. He is on enteral feeding for nutritional support. He is receiving before for sedation. Note that all of the blood cultures came back positive for Enterococcus faecalis. The patient remains on IV Unasyn. Follow-up cultures were obtained to make sure there is no ongoing bacteremia. There is a high likely what that it there may be a component of infective endocarditis. The patient will need a LISSET to evaluate this further. His cardiac rhythm is paced. The fibrillator pocket is clean and intact at this point in time. As for his continued kidney injury, the patient's creatinine is improving and the creatinine is down to 1.72. The white cell count is also down to 10.5 and the patient is responding to IV Unasyn for now. Objective - Vital Signs Vital signs: Vital Signs Temp 99.8 F H 03/08/19 04:00 Pulse 68 03/08/19 07:30 Resp 03/08/19 07:00 BP 102/55 03/08/19 07:00 Pulse Ox 97 03/08/19 07:00 Intake & Output 03/07/19 03/08/19 03/08/19 18:59 06:59 18:59 Intake Total 883.916 0719.536 50 Output Total 1370 655 35 Balance -694.844 734.536 15 Weight 121.5 kg 122.4 kg Intake: IV 120 120 10 KVO 120 120 10 Intake, IV Titration 555.156 749.536 Amount Ampicillin-Sulbactam 3 gm 100 In Sodium Chloride 0.9% 100 ml @ 200 mls/hr IVPB Q12H [facility] Rx#:[id number] Norepinephrine 4 mg In 299.335 349.536 Sodium Chloride 0.9% 250 ml @ 0.05 MCG/KG/MIN 22. 479 mls/hr IV .[id number] [facility] Rx#:[id number] Propofol 1,000 mg In 255.821 300 Empty Bag 1 bag @ Titrate IV .Q0M DE[facility]A Rx#: [id number] Tube Feeding 400 40 Other 120 Output: Gastric Drainage 550 Urine 820 655 35 Other: Voiding Method Indwelling Catheter Indwelling Catheter ABP, PAP, CO, CI - Last Documented Arterial Blood Pressure 115/52 - Exam Gen. appearance, comfortable likely distress. Sedated. Currently on a propofol drip infusion. The patient currently has an orogastric and orotracheal tube and both of them are in place. Head exam was generally normal. There was no scleral icterus or corneal arcus. Mucous membranes were moist. Neck was supple and without jugular venous distension, thyromegaly, or carotid bruits. Carotids were easily palpable bilaterally. There was no adenopathy. Lungs sounds are diminished bilaterally. No rhonchi. No wheezes. The patient is a pacemaker pocket over the left anterior chest area and the overlying skin is dry clean and intact. Heart sounds are regular and there paced at this point in time. No cervical m urmurs appreciated. Sternotomy scar is dry clean and intact. No right ventricular heave or thrill. Abdominal exam revealed normal bowel sounds. The abdomen was soft, non-tender, and without masses, organomegaly, or appreciable enlargement of the abdominal aorta. Examination of the extremities revealed easily palpable radial, femoral and pedal pulses. There was no cyanosis, clubbing or edema. There is trace edema lower extremities bilaterally. Examination of the skin revealed no evidence of significant rashes, suspicious appearing nevi or other concerning lesions. Neurologic the patient is sedated. He was moving all 4 extremities and lower degree of sedation. His RAAS scale is -1 - Labs CBC & Chem 7: 03/08/19 03:50 03/08/19 03:50 Labs: Abnormal Lab Results - Last 24 Hours (Table) 03/07/19 03/07/19 03/08/19 Range/Units 11:58 18:07 00:02 RBC (4.30-5.90) m/uL Hgb (13.0-17.5) gm/dL Hct (39.0-53.0) % Neutrophils # (1.3-7.7) k/uL Lymphocytes # (1.0-4.8) k/uL ABG HCO3 (21-25) mmol/L ABG Total CO2 (19-24) mmol/L ABG O2 Saturation (94-97) % Chloride (98-107) mmol/L BUN (9-20) mg/dL Creatinine (0.66-1.25) mg/dL Glucose (74-99) mg/dL POC Glucose (mg/dL) 123 H 129 H 132 H (75-99) mg/dL Magnesium (1.6-2.3) mg/dL 03/08/19 03/08/19 03/08/19 Range/Units 03:50 03:50 04:40 RBC 3.61 L (4.30-5.90) m/uL Hgb 10.4 L (13.0-17.5) gm/dL Hct 31.8 L (39.0-53.0) % Neutrophils # 8.3 H (1.3-7.7) k/uL Lymphocytes # 0.8 L (1.0-4.8) k/uL ABG HCO3 26 H (21-25) mmol/L ABG Total CO2 27 H (19-24) mmol/L ABG O2 Saturation 98.0 H (94-97) % Chloride 108 H (98-107) mmol/L BUN 38 H (9-20) mg/dL Creatinine 1.72 H (0.66-1.25) mg/dL Glucose 155 H (74-99) mg/dL POC Glucose (mg/dL) (75-99) mg/dL Magnesium 2.5 H (1.6-2.3) mg/dL 03/08/19 Range/Units 05:38 RBC (4.30-5.90) m/uL Hgb (13.0-17.5) gm/dL Hct (39.0-53.0) % Neutrophils # (1.3-7.7) k/uL Lymphocytes # (1.0-4.8) k/uL ABG HCO3 (21-25) mmol/L ABG Total CO2 (19-24) mmol/L ABG O2 Saturation (94-97) % Chloride (98-107) mmol/L BUN (9-20) mg/dL Creatinine (0.66-1.25) mg/dL Glucose (74-99) mg/dL POC Glucose (mg/dL) 155 H (75-99) mg/dL Magnesium (1.6-2.3) mg/dL Microbiology - Last 24 Hours (Table) 03/06/19 11:12 Gram Stain - Final Sputum Sputum Culture - Final 03/06/19 09:55 Blood Culture Gram Stain - Preliminary Blood 03/06/19 10:10 Blood Culture Gram Stain - Preliminary Blood 03/06/19 02:42 Blood Culture Gram Stain - Preliminary Blood Blood Culture - Preliminary Group D Enterococcus 03/05/19 17:44 Blood Culture Gram Stain - Final Blood Blood Culture - Final Enterococcus faecalis Assessment and Plan Plan: 1 acute hypoxic respiratory failure, multifactorial. Patient developed acute hypoxic respiratory failure following a insertion of a pacer/AICD. The patient was in a combination of septic shock and cardiogenic shock and further evaluation revealed that the patient was septic related to an enterococcus blood infection. The patient had significant bacteremia and all of the blood cultures came back positive and currently is on Unasyn. Consider infective endocarditis. Her now the patient remains intubated on a mechanical ventilator. He is still septic and is requiring pressors and norepinephrine infusion is running at 0.08 mcg/kg per minute. He is on IV Unasyn. Repeat blood cultures are pending. Consider LISSET to rule out endocarditis. 2 coronary artery disease with previous bypass surgery. The patient was hospitalized for an acute non-STEMI and chest pain. The patient had an acute non-STEMI underwent cardiac catheterization and the BELTRAN to LAD and the rest of the stents were patent and he was offered medical management 3 severe ischemic cardiomyopathy with an ejection fraction of 20-25% post insertion of a biventricular pacemaker/defibrillator 4 aortic valve replacement with bioprosthetic valve. Echocardiogram shows a normal functioning valve with moderate degree of mitral regurgitation mild pulmonary hypertension. High likely was for infective endocarditis 5 septic shock with Enterococcus faecalis and the patient is currently on a combination of Unasyn covering for the potential of endocarditis 90 the patient is a left prosthetic aortic valve. 6 acute kidney injury, consider secondary to sepsis versus contrast nephropathy, Improving and the creatinine is down to 1.7 7 COPD 8 hypertension, history of 9 hyperlipidemia 10 generalized anxiety disorder/PTSD. 11 obesity with a BMI of 43 Plan Continue vent support. No weaning efforts for today. We'll try to wean off the pressors first. Continue Unasyn. I'm going to discuss the possibility of performing a LISSET with cardiology and this will be good opportunity to do the LISSET as long as the patient is intubated on a mechanical ventilator. Repeat blood cultures. We'll obtain 2 cultures from the periphery and from the central line to make sure there is no ongoing bacteremia. Continue enteral feeding for nutritional support. Continue vent support. Monitor hemodynamics. Function is improving. White cell count has dropped. Not ready for extubation her weaning at this point in time. We'll continue to follow make further recommendations based on his progress. This is a critically care evaluation that was on a more than 30 minutes. Time with Patient: Greater than 30
[2019-03-08] MEDS: FUROSEMIDE 40 MG TAB PO SCH (08:57)
[2019-03-08] MEDS: ASPIRIN 325 MG TAB PO SCH (08:57)
--- NOTE | 2019-03-08 10:14 | P.PN ---
Subjective Progress Note Date: 03/08/19 Seen and examined for the follow-up of acute kidney injury. Still on vent with minimal settings. Objective - Vital Signs Vital signs: Vital Signs Temp 99.9 F H 03/08/19 08:00 Pulse 113 H 03/08/19 09:00 Resp 14 03/08/19 09:00 BP 102/55 03/08/19 07:00 Pulse Ox 94 L 03/08/19 09:00 Intake & Output 03/07/19 03/08/19 03/08/19 18:59 06:59 18:59 Intake Total 707.106 7111.536 354.929 Output Total 1370 655 160 Balance -694.844 734.536 194.929 Weight 121.5 kg 122.4 kg Intake: IV 120 120 30 KVO 120 120 30 Intake, IV Titration 555.156 749.536 174.929 Amount Ampicillin-Sulbactam 3 gm 100 In Sodium Chloride 0.9% 100 ml @ 200 mls/hr IVPB Q12H [facility] Rx#:[id number] Norepinephrine 4 mg In 299.335 349.536 74.929 Sodium Chloride 0.9% 250 ml @ 0.05 MCG/KG/MIN 22. 479 mls/hr IV .[id number] [facility] Rx#:[id number] Propofol 1,000 mg In 255.821 300 100 Empty Bag 1 bag @ Titrate IV .Q0M [facility] Rx#: [id number] Tube Feeding 400 120 Other 120 30 Output: Gastric Drainage 550 Urine 820 655 160 Other: Voiding Method Indwelling Catheter Indwelling Catheter ABP, PAP, CO, CI - Last Documented Arterial Blood Pressure 93/49 - Exam No acute distress Oral intubation S1-S2 heard Lungs clear Edema - Labs CBC & Chem 7: 03/08/19 03:50 03/08/19 03:50 Labs: Abnormal Lab Results - Last 24 Hours (Table) 03/07/19 03/07/19 03/08/19 Range/Units 11:58 18:07 00:02 RBC (4.30-5.90) m/uL Hgb (13.0-17.5) gm/dL Hct (39.0-53.0) % Neutrophils # (1.3-7.7) k/uL Lymphocytes # (1.0-4.8) k/uL ABG HCO3 (21-25) mmol/L ABG Total CO2 (19-24) mmol/L ABG O2 Saturation (94-97) % Chloride (98-107) mmol/L BUN (9-20) mg/dL Creatinine (0.66-1.25) mg/dL Glucose (74-99) mg/dL POC Glucose (mg/dL) 123 H 129 H 132 H (75-99) mg/dL Magnesium (1.6-2.3) mg/dL 03/08/19 03/08/19 03/08/19 Range/Units 03:50 03:50 04:40 RBC 3.61 L (4.30-5.90) m/uL Hgb 10.4 L (13.0-17.5) gm/dL Hct 31.8 L (39.0-53.0) % Neutrophils # 8.3 H (1.3-7.7) k/uL Lymphocytes # 0.8 L (1.0-4.8) k/uL ABG HCO3 26 H (21-25) mmol/L ABG Total CO2 27 H (19-24) mmol/L ABG O2 Saturation 98.0 H (94-97) % Chloride 108 H (98-107) mmol/L BUN 38 H (9-20) mg/dL Creatinine 1.72 H (0.66-1.25) mg/dL Glucose 155 H (74-99) mg/dL POC Glucose (mg/dL) (75-99) mg/dL Magnesium 2.5 H (1.6-2.3) mg/dL 03/08/19 Range/Units 05:38 RBC (4.30-5.90) m/uL Hgb (13.0-17.5) gm/dL Hct (39.0-53.0) % Neutrophils # (1.3-7.7) k/uL Lymphocytes # (1.0-4.8) k/uL ABG HCO3 (21-25) mmol/L ABG Total CO2 (19-24) mmol/L ABG O2 Saturation (94-97) % Chloride (98-107) mmol/L BUN (9-20) mg/dL Creatinine (0.66-1.25) mg/dL Glucose (74-99) mg/dL POC Glucose (mg/dL) 155 H (75-99) mg/dL Magnesium (1.6-2.3) mg/dL Microbiology - Last 24 Hours (Table) 03/06/19 11:12 Gram Stain - Final Sputum Sputum Culture - Final 03/06/19 09:55 Blood Culture Gram Stain - Preliminary Blood 03/06/19 10:10 Blood Culture Gram Stain - Preliminary Blood 03/06/19 02:42 Blood Culture Gram Stain - Preliminary Blood Blood Culture - Preliminary Group D Enterococcus 03/05/19 17:44 Blood Culture Gram Stain - Final Blood Blood Culture - Final Enterococcus faecalis Assessment and Plan Assessment: #1 nonoliguric acute kidney injury secondary to ischemic ATN. Baseline creatinine 0.8 MG per DL. #2 metabolic acidosis improved #3 ventilator-dependent respiratory failure #4 hyperkalemia resolved #5 edema Plan: #1 continue diuresis, creatinine continue to improve #2 avoid nephrotoxic agents and hypotensive episodes
--- NOTE | 2019-03-08 10:27 | PN ---
PROGRESS NOTE Mr. Tiwari is a 73-year-old male with a known history of aortic valve replacement, history of coronary artery bypass grafting, chronically occluded right coronary artery, status post biventricular ICD implantation who remains intubated and sedated. He has severe cardiomyopathy. He had positive blood culture with the enterococcus Group D. His blood pressure is stable. He has no evidence of malignant arrhythmia. The plan is not to attempt weaning today. He continues to be at this time on aspirin once a day, Plavix 75 mg daily, Lasix 40 mg twice a day, Protonix, pravastatin 20 mg daily. PHYSICAL EXAMINATION: Intubated, sedated. Blood pressure 120/60 with a heart rate in the 90s. LUNGS: Clear anteriorly. HEART: S1-S2 with systolic ejection murmur heard at the base. No diastolic murmur appreciated. ABDOMEN: Soft, obese. Positive bowel sounds. EXTREMITIES: +1 edema bilaterally. LAB DATA: Lab data revealed a BUN and creatinine 38 and 1.72, which is improving compared to yesterday. His potassium 4.3. pH 7.44 with a pCO2 of 104, hemoglobin of 10.4. Chest x-ray this morning revealed evidence of congestive heart failure. IMPRESSION: 1. Respiratory failure with evidence of congestive heart failure. 2. Positive blood cultures. 3. Status post coronary artery bypass grafting with known occluded right coronary artery. 4. Severe ischemic cardiomyopathy. 5. Status post aortic valve replacement. 6. Acute renal function, improving. 7. History of hypertension. 8. Hyperlipidemia. RECOMMENDATIONS: From the cardiac standpoint, the patient will be scheduled to undergo transesophageal echocardiogram tomorrow by Dr. Juarez to rule out any evidence of endocarditis that will affect the duration of antibiotics treatment. We will continue to follow his renal function and depending on his progress, further recommendations will be made. MMODL / IJN: [id number] /
[2019-03-08] MEDS: CHLORHEXIDINE GLUCONATE 15 ML CUP MUCOUS MEM SCH ×2 (10:44→21:00)
[2019-03-08 11:47] LABS: Glucose,Whole Blood 145 mg/dL (75-99)
--- NOTE | 2019-03-08 13:46 | P.PN ---
Subjective This is a pleasant 73 years old male with past medical history of coronary artery disease patient , , heart failure, asthma, GERD, hyperlipidemia, h ypertension, osteoarthritis, valvular heart disease. Patient was admitted with non-STEMI, he underwent cardiac cath on 03/03/2019, showing patent stents and coronaries. Also patient underwent elective EP study yesterday and status post AICD placement, patient is currently in the ICU intubated and could not provide information, he was extubated for short time before he needed reintubation. Information was taken from the staff at the medical records as patient cannot contribute to history . He has low ejection fraction 20-25%. Patient is obese and he needed low dose of pressors. He has distended abdomen, possibly from fat. No focal neurological findings. Also he has positive blood culture with enterococcus and trending up leukocytes. Infectious disease was consulted, patient is currently on Zosyn. Also patient creatinine is trending up however patient is making reasonable urine output, he was on Lasix drip but this was stopped. 03/07/2019 Patient in the ICU intubated and sedated, his vitals with blood pressure 130/54, and he is saturating 98%. His WBC is back to normal at 10.5. Creatinine is at 2.14 with slight improvement down from 2.6 yesterday. He has several blood culture positive for enterococcus. Chest x-ray showing no significant change. Patient has been evaluated by oracle apex developer and director of retail, director of retail considering LISSET if blood culture remains positive. Patient also was started on gentamicin and Unasyn as per infectious disease recommendation 03/08/2019 Patient remains in the ICU, he still intubated and sedated. Blood pressure 108/52, saturating 96%, heart rate is 70. K, hemoglobin is stable at 10.4, platelets are within normal limits. Creatinine is improving gradually down to 1.7, electrolytes included sodium and potassium are within normal limits, sugar is running between 129-155. Magnesium is elevated at 2.5,. He has several bloo d culture that's positive for group D enterococcus faecalis, cardiology R following the case and the plan is for transesophageal echocardiogram tomorrow to rule out endocarditis Review of systems: N/a Active Medications Generic Name Dose Route Start Last Admin Trade Name Freq PRN Reason Stop Dose Admin Acetaminophen 650 mg 03/05/19 18:53 Tylenol Tab PO Q6HR PRN Mild Pain Albuterol Sulfate 2.5 mg 03/01/19 20:10 03/06/19 15:31 Ventolin Nebulized INHALATION 2.5 mg Q4H PRN Administration sob Allopurinol 100 mg 03/01/19 20:10 Zyloprim PO HS PRN gout Aspirin 81 mg 03/09/19 09:00 Aspirin PO DAILY DEANDRA Atorvastatin Calcium 40 mg 03/09/19 09:00 Lipitor PO DAILY DEANDRA Bisacodyl 10 mg 03/01/19 20:12 Dulcolax PO DAILY PRN Constipation Chlorhexidine Gluconate 15 ml 03/06/19 09:00 03/08/19 10:44 Peridex MUCOUS MEM 15 ml BID DEANDRA Administration Clopidogrel Bisulfate 75 mg 03/01/19 21:00 03/07/19 20:52 Plavix PO 75 mg HS DEANDRA Administration Furosemide 40 mg 03/08/19 21:00 Lasix IV Q12HR [facility] Heparin Sodium (Porcine) 5,000 unit 03/06/19 00:00 03/08/19 10:44 Heparin SQ 5,000 unit Q8HR [facility] Administration Propofol 1,000 mg/ IV Solution 100 mls @ 0 mls/hr 03/05/19 22:30 03/08/19 13:16 IV 25 mcg/kg/min .Q0M DEANDRA 18.36 mls/hr Titration Protocol Titrate Norepinephrine Bitartrate 4 mg 254 mls @ 22.479 mls/hr 03/05/19 23:45 03/08/19 09:50 / Sodium Chloride IV 0.06 mcg/kg/min .[id number] DEANDRA 26.975 mls/hr Titration Protocol 0.05 MCG/KG/MIN Ampicillin Sodium/Sulbactam 100 mls @ 200 mls/hr 03/08/19 14:00 Sodium 3 gm/ Sodium Chloride IVPB Q6H [facility] Insulin Aspart 0 unit 03/07/19 06:00 03/08/19 11:56 Novolog SQ 1 unit Q6H [facility] Administration Protocol Ipratropium [place] 0.5 mg 03/02/19 08:00 03/08/19 11:40 Atrovent Nebulized INHALATION 0.5 mg RT-QID [facility] Administration Metoprolol Tartrate 12.5 mg 03/08/19 21:00 Lopressor PO BID [facility] Nitroglycerin 0.4 mg 03/01/19 16:04 Nitrostat SUBLINGUAL Q5M PRN Chest Pain Pantoprazole Sodium 40 mg 03/02/19 07:30 03/08/19 06:42 Protonix PO 40 mg [id number] DEANDRA Administration Sodium Chloride 10 ml 03/05/19 21:00 03/08/19 10:44 Saline Flush IV 10 ml Q12HR DEANDRA Administration Objective - Vital Signs Vital signs: Vital Signs Temp 99.3 F 03/08/19 12:00 Pulse 70 03/08/19 13:15 Resp 14 03/08/19 13:15 BP 102/55 03/08/19 11:00 Pulse Ox 96 03/08/19 13:15 Intake & Output 03/07/19 03/08/19 03/08/19 18:59 06:59 18:59 Intake Total 940.669 1998.536 642.090 Output Total 1370 655 445 Balance -694.844 734.536 197.090 Weight 121.5 kg 122.4 kg Intake: IV 120 120 70 KVO 120 120 70 Intake, IV Titration 555.156 749.536 232.090 Amount Ampicillin-Sulbactam 3 gm 100 In Sodium Chloride 0.9% 100 ml @ 200 mls/hr IVPB Q12H DEANDRA Rx#:[id number] Norepinephrine 4 mg In 299.335 349.536 74.929 Sodium Chloride 0.9% 250 ml @ 0.05 MCG/KG/MIN 22. 479 mls/hr IV .[id number] DEANDRA Rx#:[id number] Propofol 1,000 mg In 255.821 300 157.161 Empty Bag 1 bag @ Titrate IV .Q0M DEANDRA Rx#: [id number] Tube Feeding 400 280 Other 120 60 Output: Gastric Drainage 550 Urine 820 655 445 Other: Voiding Method Indwelling Catheter Indwelling Catheter Indwelling Catheter ABP, PAP, CO, CI - Last Documented Arterial Blood Pressure 108/52 - Exam -GENERAL: The patient is intubated and sedated HEENT: Pupils are round and equally reacting to light. EOMI. No scleral icterus. No conjunctival pallor. Normocephalic, atraumatic. No pharyngeal erythema. No thyromegaly. CARDIOVASCULAR: S1 and S2 present. No murmurs, rubs, or gallops. PULMONARY: Chest is clear to auscultation, no wheezing or crackles. ABDOMEN: Soft, nontender, nondistended, normoactive bowel sounds. No palpable organomegaly. MUSCULOSKELETAL: No joint swelling or deformity. EXTREMITIES: No cyanosis, clubbing, or pedal edema. NEUROLOGICAL: Gross neurological examination did not reveal any focal deficits. SKIN: No rashes. no petechiae. - Labs CBC & Chem 7: 03/08/19 03:50 03/08/19 03:50 Labs: Abnormal Lab Results - Last 24 Hours (Table) 03/07/19 03/08/19 03/08/19 Range/Units 18:07 00:02 03:50 RBC 3.61 L (4.30-5.90) m/uL Hgb 10.4 L (13.0-17.5) gm/dL Hct 31.8 L (39.0-53.0) % Neutrophils # 8.3 H (1.3-7.7) k/uL Lymphocytes # 0.8 L (1.0-4.8) k/uL ABG HCO3 (21-25) mmol/L ABG Total CO2 (19-24) mmol/L ABG O2 Saturation (94-97) % Chloride (98-107) mmol/L BUN (9-20) mg/dL Creatinine (0.66-1.25) mg/dL Glucose (74-99) mg/dL POC Glucose (mg/dL) 129 H 132 H (75-99) mg/dL Magnesium (1.6-2.3) mg/dL 03/08/19 03/08/19 03/08/19 Range/Units 03:50 04:40 05:38 RBC (4.30-5.90) m/uL Hgb (13.0-17.5) gm/dL Hct (39.0-53.0) % Neutrophils # (1.3-7.7) k/uL Lymphocytes # (1.0-4.8) k/uL ABG HCO3 26 H (21-25) mmol/L ABG Total CO2 27 H (19-24) mmol/L ABG O2 Saturation 98.0 H (94-97) % Chloride 108 H (98-107) mmol/L BUN 38 H (9-20) mg/dL Creatinine 1.72 H (0.66-1.25) mg/dL Glucose 155 H (74-99) mg/dL POC Glucose (mg/dL) 155 H (75-99) mg/dL Magnesium 2.5 H (1.6-2.3) mg/dL 03/08/19 Range/Units 11:43 RBC (4.30-5.90) m/uL Hgb (13.0-17.5) gm/dL Hct (39.0-53.0) % Neutrophils # (1.3-7.7) k/uL Lymphocytes # (1.0-4.8) k/uL ABG HCO3 (21-25) mmol/L ABG Total CO2 (19-24) mmol/L ABG O2 Saturation (94-97) % Chloride (98-107) mmol/L BUN (9-20) mg/dL Creatinine (0.66-1.25) mg/dL Glucose (74-99) mg/dL POC Glucose (mg/dL) 145 H (75-99) mg/dL Magnesium (1.6-2.3) mg/dL Microbiology - Last 24 Hours (Table) 03/06/19 11:12 Gram Stain - Final Sputum Sputum Culture - Final 03/06/19 09:55 Blood Culture Gram Stain - Preliminary Blood 03/06/19 10:10 Blood Culture Gram Stain - Preliminary Blood 03/06/19 02:42 Blood Culture Gram Stain - Preliminary Blood Blood Culture - Preliminary Group D Enterococcus 03/05/19 17:44 Blood Culture Gram Stain - Final Blood Blood Culture - Final Enterococcus faecalis Assessment and Plan Assessment: Septic shock with enterococcus septicemia None STEMI, status post cardiac cath showing patent stents Acute on chronic systolic congestive heart failure with ejection fraction 20- 25%, on the top of history of severe ischemic cardiomyopathy. Status post EP study and AICD placement on 03/05/2019 Acute kidney injury, secondary to shock states and possible contrast-induced nephropathy acute hypoxic respiratory failure, status post intubation and mechanical ventilation History of coronary artery disease History of valvular heart disease Hypertension Hyperlipidemia COPD/asthma Plan: This is a 73 years old male who presents with septic shock and heart disease. Continue with antibiotics as per infectious disease recommendation, follow-up final culture results. Patient is planned for LISSET. Continue with process as per critical care team recommendations. Follow-up cardiology recommendations. Follow-up WBC and creatinine.Labs and medication were reviewed. Nephrology consult for renal disease. Continue same treatment. Continue with symptomatic treatment. Resume home medication. Monitor lytes and vitals. DVT and GI prophylaxis. Further recommendations of the clinical course of the patient DVT prophylaxis: Subcutaneous heparin GI Prophylaxis: Protonix Prognosis is guarded
[2019-03-08] MEDS: HYDROmorphone 1 MG/ML 1 ML SYRINGE IVP PRN ×2 (15:15→21:05)
[2019-03-08 17:33] LABS: Glucose,Whole Blood 132 mg/dL (75-99)
[2019-03-08] MEDS: METOPROLOL TARTRATE 12.5 MG TAB PO SCH (21:00)
[2019-03-08] MEDS: CLOPIDOGREL 75 MG TAB PO SCH (21:00)
[2019-03-08] MEDS: FUROSEMIDE 10 MG/ML 4 ML VIAL IV SCH (21:04)
[2019-03-09 00:03] LABS: Glucose,Whole Blood 139 mg/dL (75-99)
[2019-03-09] MEDS: HEPARIN SODIUM,PORCINE 5,000 UNIT/ML 1 ML VIAL SQ SCH ×4 (00:07→23:55)
[2019-03-09] MEDS: INSULIN ASPART (NovoLOG) 100 UNIT/ML VIAL SQ SCH ×5 (00:07→23:45)
[2019-03-09] MEDS: AMPICILLIN-SULBACTAM 3 GM in SODIUM CHLORIDE 0.9% 100 ML IVPB SCH ×4 (02:09→20:23)
[2019-03-09] MEDS: PROPOFOL 1,000 MG in EMPTY BAG 1 BAG IV SCH ×6 (02:11→23:55)
[2019-03-09] MEDS: NOREPINEPHRINE 4 MG in SODIUM CHLORIDE 0.9% 250 ML IV SCH ×2 (04:25→17:45)
[2019-03-09 04:37] LABS: ABG Base Excess 2.9 mmol/L; ABG HCO3 27 mmol/L (21-25); ABG Oxygen Saturation 98.7 % (94-97); ABG PCO2 42 mmHg (35-45); ABG PH 7.42 (7.35-7.45); ABG PO2 120 mmHg (83-108); ABG TCO2 29 mmol/L (19-24); Allen Test Performed? Yes
[2019-03-09 04:44] LABS: Basophils # (A) 0.1 k/uL (0-0.2); Basophils % (A) 0 %; Eosinophils # (A) 0.6 k/uL (0-0.7); Eosinophils % (A) 5 %; HCT 31.7 % (39.0-53.0); HGB 10.2 gm/dL (13.0-17.5); Hypochromasia Moderate; Lymphocytes # (A) 0.9 k/uL (1.0-4.8); Lymphocytes % (A) 8 %; MCH 28.5 pg (25.0-35.0); MCHC 32.3 g/dL (31.0-37.0); MCV 88.3 fL (80.0-100.0); Mean Platelet Volume 8.5; Monocytes # (A) 0.6 k/uL (0-1.0); Monocytes % (A) 5 %; Neutrophils # (A) 9.9 k/uL (1.3-7.7); Neutrophils % (A) 80 %; Platelet Count 168 k/uL (150-450); RBC 3.59 m/uL (4.30-5.90); RDW 14.3 % (11.5-15.5); WBC 12.3 k/uL (3.8-10.6)
[2019-03-09 04:53] LABS: Calcium 8.5 mg/dL (8.4-10.2); Magnesium 2.3 mg/dL (1.6-2.3); Phosphorus 3.8 mg/dL (2.5-4.5); Potassium 4.1 mmol/L (3.5-5.1)
[2019-03-09 05:42] LABS: Glucose,Whole Blood 144 mg/dL (75-99)
--- NOTE | 2019-03-09 07:25 | XR ---
EXAMINATION TYPE: XR chest 1V portable DATE OF EXAM: 03/09/2019 COMPARISON: 03/08/2019 HISTORY: Ventilatory dependent respiratory failure. TECHNIQUE: Single frontal view of the chest is obtained. FINDINGS: There is redemonstration of trace pleural effusions and retrocardiac airspace disease. Lef t midlung airspace disease is also redemonstrated. There is mild interstitial pulmonary edema through out. Post CABG changes are seen in the chest. Cardiomediastinal silhouette is enlarged and exaggerate d by rotation. Right internal jugular central venous catheter, endotracheal tube, and enteric tube ar e similar in position to the prior. Multilead left-sided cardiac device is also noted. IMPRESSION: Similar degree of fluid overload with mild interstitial pulmonary edema, trace pleural e ffusions and retrocardiac airspace disease that may represent atelectasis.
[2019-03-09] MEDS: IPRATROPIUM 0.5 MG/2.5 ML NEBU INHALATION SCH ×4 (08:06→19:10)
[2019-03-09] MEDS: ATORVASTATIN 40 MG TAB PO SCH (08:41)
[2019-03-09] MEDS: CHLORHEXIDINE GLUCONATE 15 ML CUP MUCOUS MEM SCH ×2 (08:41→20:24)
[2019-03-09] MEDS: ASPIRIN 81 MG PO SCH (08:41)
[2019-03-09] MEDS: PANTOPRAZOLE 40 MG/10 ML VIAL IVP SCH (08:42)
[2019-03-09] MEDS: FUROSEMIDE 10 MG/ML 4 ML VIAL IV SCH ×2 (08:42→20:24)
[2019-03-09] MEDS: METOPROLOL TARTRATE 12.5 MG TAB PO SCH ×3 (08:46→20:24)
--- NOTE | 2019-03-09 10:34 | P.PN ---
Subjective This is a pleasant 73 years old male with past medical history of coronary artery disease patient , , heart failure, asthma, GERD, hyperlipidemia, h ypertension, osteoarthritis, valvular heart disease. Patient was admitted with non-STEMI, he underwent cardiac cath on 03/03/2019, showing patent stents and coronaries. Also patient underwent elective EP study yesterday and status post AICD placement, patient is currently in the ICU intubated and could not provide information, he was extubated for short time before he needed reintubation. Information was taken from the staff at the medical records as patient cannot contribute to history . He has low ejection fraction 20-25%. Patient is obese and he needed low dose of pressors. He has distended abdomen, possibly from fat. No focal neurological findings. Also he has positive blood culture with enterococcus and trending up leukocytes. Infectious disease was consulted, patient is currently on Zosyn. Also patient creatinine is trending up however patient is making reasonable urine output, he was on Lasix drip but this was stopped. 03/07/2019 Patient in the ICU intubated and sedated, his vitals with blood pressure 130/54, and he is saturating 98%. His WBC is back to normal at 10.5. Creatinine is at 2.14 with slight improvement down from 2.6 yesterday. He has several blood culture positive for enterococcus. Chest x-ray showing no significant change. Patient has been evaluated by movie critic and manager of internal, manager of internal considering LISSET if blood culture remains positive. Patient also was started on gentamicin and Unasyn as per infectious disease recommendation 03/08/2019 Patient remains in the ICU, he still intubated and sedated. Blood pressure 108/52, saturating 96%, heart rate is 70. K, hemoglobin is stable at 10.4, platelets are within normal limits. Creatinine is improving gradually down to 1.7, electrolytes included sodium and potassium are within normal limits, sugar is running between 129-155. Magnesium is elevated at 2.5,. He has several bloo d culture that's positive for group D enterococcus faecalis, cardiology R following the case and the plan is for transesophageal echocardiogram tomorrow to rule out endocarditis 03/09/2019 Patient is ICU intubated and sedated, patient is planned to go for transesophageal echocardiogram today to rule out endocarditis in view of his persistent bacteremia/septicemia. Patient remains currently on Unasyn. Patient is slightly bradycardic at 57-60, he had low-grade temperature yesterday of 100.2, blood pressure 102/58, lap showing mild leukocytosis of 12.3 K, hemoglobin is stable. Creatinine is improving to 1.75. ABGs showed pH of 7.4, pCO2 42 which are within normal limits, pO2 is 120. Repeat blood cultures are pending, repeat chest x-ray from today showing fluid overload with interstitial edema with possible atelectasis. Review of systems: N/a Active Medications Generic Name Dose Route Start Last Admin Trade Name Freq PRN Reason Stop Dose Admin Acetaminophen 650 mg 03/05/19 18:53 Tylenol Tab PO Q6HR PRN Mild Pain Albuterol Sulfate 2.5 mg 03/01/19 20:10 03/06/19 15:31 Ventolin Nebulized INHALATION 2.5 mg Q4H PRN Administration sob Allopurinol 100 mg 03/01/19 20:10 Zyloprim PO HS PRN gout Aspirin 81 mg 03/09/19 09:00 03/09/19 08:41 Aspirin PO 81 mg DAILY DEANDRA Administration Atorvastatin Calcium 40 mg 03/09/19 09:00 03/09/19 08:41 Lipitor PO 40 mg DAILY DEANDRA Administration Bisacodyl 10 mg 03/01/19 20:12 Dulcolax PO DAILY PRN Constipation Chlorhexidine Gluconate 15 ml 03/06/19 09:00 03/09/19 08:41 Peridex MUCOUS MEM 15 ml BID DEANDRA Administration Clopidogrel Bisulfate 75 mg 03/01/19 21:00 03/08/19 21:00 Plavix PO 75 mg HS DEANDRA Administration Furosemide 40 mg 03/08/19 21:00 03/09/19 08:42 Lasix IV 40 mg Q12HR DEANDRA Administration Heparin Sodium (Porcine) 5,000 unit 03/06/19 00:00 03/09/19 08:41 Heparin SQ 5,000 unit Q8HR DEANDRA Administration Hydromorphone HCl 1 mg 03/08/19 15:04 03/08/19 21:05 Dilaudid IVP 1 mg Q3H PRN Administration Pain Propofol 1,000 mg/ IV Solution 100 mls @ 0 mls/hr 03/05/19 22:30 03/09/19 10:00 IV 30 mcg/kg/min .Q0M DEANDRA 22.356 mls/hr Administration Protocol Titrate Norepinephrine Bitartrate 4 mg 254 mls @ 22.479 mls/hr 03/05/19 23:45 03/09/19 10:08 / Sodium Chloride IV 0.03 mcg/kg/min .[id number] DEANDRA 13.487 mls/hr Titration Protocol 0.05 MCG/KG/MIN Ampicillin Sodium/Sulbactam 100 mls @ 200 mls/hr 03/08/19 14:00 03/09/19 08:40 Sodium 3 gm/ Sodium Chloride IVPB 200 mls/hr Q6H DEANDRA Administration Insulin Aspart 0 unit 03/07/19 06:00 03/09/19 05:41 Novolog SQ 1 unit Q6H DEANDRA Administration Protocol Ipratropium [place] 0.5 mg 03/02/19 08:00 03/09/19 08:06 Atrovent Nebulized INHALATION 0.5 mg RT-QID DEANDRA Administration Metoprolol Tartrate 12.5 mg 03/08/19 21:00 03/09/19 10:14 Lopressor PO 12.5 mg BID DEANDRA Administration Nitroglycerin 0.4 mg 03/01/19 16:04 Nitrostat SUBLINGUAL Q5M PRN Chest Pain Pantoprazole Sodium 40 mg 03/09/19 09:00 03/09/19 08:42 Protonix IVP 40 mg DAILY DEANDRA Administration Sodium Chloride 10 ml 03/05/19 21:00 03/09/19 08:42 Saline Flush IV 10 ml Q12HR DEANDRA Administration Objective - Vital Signs Vital signs: Vital Signs Temp 99.3 F 03/09/19 07:30 Pulse 57 L 03/09/19 09:15 Resp 14 03/09/19 09:15 BP 102/58 03/09/19 09:15 Pulse Ox 96 03/09/19 09:15 Intake & Output 03/08/19 03/09/19 03/09/19 18:59 06:59 18:59 Intake Total 3875.314 7576.573 490.963 Output Total 675 1590 235 Balance 602.661 -541.427 255.963 Weight 124.2 kg Intake: IV 220 270 230 Ampicillin-Sulbactam 3 gm 100 150 200 In Sodium Chloride 0.9% 100 ml @ 200 mls/hr IVPB Q6H DEANDRA Rx#:[id number] KVO 120 120 30 Intake, IV Titration 487.661 438.573 260.963 Amount Norepinephrine 4 mg In 254.000 204.483 175.638 Sodium Chloride 0.9% 250 ml @ 0.05 MCG/KG/MIN 22. 479 mls/hr IV .[id number] DEANDRA Rx#:[id number] Propofol 1,000 mg In 233.661 234.090 85.325 Empty Bag 1 bag @ Titrate IV .Q0M DEANDRA Rx#: [id number] Tube Feeding 480 280 Other 90 60 Output: Urine 675 1590 235 Other: Voiding Method Indwelling Catheter Indwelling Catheter Indwelling Catheter ABP, PAP, CO, CI - Last Documented Arterial Blood Pressure 132/55 - Exam -GENERAL: The patient is intubated and sedated HEENT: Pupils are round and equally reacting to light. EOMI. No scleral icterus. No conjunctival pallor. Normocephalic, atraumatic. No pharyngeal erythema. No thyromegaly. CARDIOVASCULAR: S1 and S2 present. No murmurs, rubs, or gallops. PULMONARY: Chest is clear to auscultation, no wheezing or crackles. ABDOMEN: Soft, nontender, nondistended, normoactive bowel sounds. No palpable organomegaly. MUSCULOSKELETAL: No joint swelling or deformity. EXTREMITIES: No cyanosis, clubbing, or pedal edema. NEUROLOGICAL: Gross neurological examination did not reveal any focal deficits. SKIN: No rashes. no petechiae. - Labs CBC & Chem 7: 03/09/19 04:30 03/09/19 04:30 Labs: Abnormal Lab Results - Last 24 Hours (Table) 03/08/19 03/08/19 03/09/19 Range/Units 11:43 17:20 00:00 WBC (3.8-10.6) k/uL RBC (4.30-5.90) m/uL Hgb (13.0-17.5) gm/dL Hct (39.0-53.0) % Neutrophils # (1.3-7.7) k/uL Lymphocytes # (1.0-4.8) k/uL ABG pO2 (83-108) mmHg ABG HCO3 (21-25) mmol/L ABG Total CO2 (19-24) mmol/L ABG O2 Saturation (94-97) % Chloride (98-107) mmol/L BUN (9-20) mg/dL Creatinine (0.66-1.25) mg/dL Glucose (74-99) mg/dL POC Glucose (mg/dL) 145 H 132 H 139 H (75-99) mg/dL 03/09/19 03/09/19 03/09/19 Range/Units 04:30 04:30 04:35 WBC 12.3 H (3.8-10.6) k/uL RBC 3.59 L (4.30-5.90) m/uL Hgb 10.2 L (13.0-17.5) gm/dL Hct 31.7 L (39.0-53.0) % Neutrophils # 9.9 H (1.3-7.7) k/uL Lymphocytes # 0.9 L (1.0-4.8) k/uL ABG pO2 120 H (83-108) mmHg ABG HCO3 27 H (21-25) mmol/L ABG Total CO2 29 H (19-24) mmol/L ABG O2 Saturation 98.7 H (94-97) % Chloride 108 H (98-107) mmol/L BUN 42 H (9-20) mg/dL Creatinine 1.75 H (0.66-1.25) mg/dL Glucose 129 H (74-99) mg/dL POC Glucose (mg/dL) (75-99) mg/dL 03/09/19 Range/Units 05:34 WBC (3.8-10.6) k/uL RBC (4.30-5.90) m/uL Hgb (13.0-17.5) gm/dL Hct (39.0-53.0) % Neutrophils # (1.3-7.7) k/uL Lymphocytes # (1.0-4.8) k/uL ABG pO2 (83-108) mmHg ABG HCO3 (21-25) mmol/L ABG Total CO2 (19-24) mmol/L ABG O2 Saturation (94-97) % Chloride (98-107) mmol/L BUN (9-20) mg/dL Creatinine (0.66-1.25) mg/dL Glucose (74-99) mg/dL POC Glucose (mg/dL) 144 H (75-99) mg/dL Microbiology - Last 24 Hours (Table) 03/06/19 09:55 Blood Culture Gram Stain - Final Blood Blood Culture - Final Enterococcus faecalis 03/06/19 10:10 Blood Culture Gram Stain - Final Blood Blood Culture - Final Enterococcus faecalis 03/06/19 02:42 Blood Culture Gram Stain - Final Blood Blood Culture - Final Enterococcus faecalis 03/08/19 07:30 Blood Culture Gram Stain - Preliminary Blood 03/08/19 07:30 Blood Culture - Final Blood 03/08/19 08:46 Blood Culture - Final Blood 03/06/19 11:12 Gram Stain - Final Sputum Sputum Culture - Final Assessment and Plan Assessment: Septic shock with enterococcus septicemia Possible None STEMI on admission, status post cardiac cath showing patent stents Acute on chronic systolic congestive heart failure with ejection fraction 20- 25%, on the top of history of severe ischemic cardiomyopathy. Status post EP study and AICD placement on 03/05/2019 Acute kidney injury, secondary to shock states and possible contrast-induced nephropathy acute hypoxic respiratory failure, status post intubation and mechanical ventilation History of coronary artery disease History of valvular heart disease Hypertension Hyperlipidemia COPD/asthma Plan: This is a 73 years old male who presents with septic shock and heart disease. Continue with antibiotics as per infectious disease recommendation, follow-up final culture results. Patient remains intubated and measures by critical care team. Patient is on Lasix. Patient is planned for LISSET. Continue with process as per critical care team recommendations. Follow-up cardiology r ecommendations. Follow-up WBC and creatinine.Labs and medication were reviewed. Nephrology consult for renal disease. Continue same treatment. Continue with symptomatic treatment. Resume home medication. Monitor lytes and vitals. DVT and GI prophylaxis. Further recommendations of the clinical course of the patient DVT prophylaxis: Subcutaneous heparin GI Prophylaxis: Protonix Prognosis is guarded
--- NOTE | 2019-03-09 10:34 | PN ---
PROGRESS NOTE Mr. Tiwari is a gentleman with a history of aortic valve replacement and bypass surgery and stenting of left main and circumflex performed as recently as in September of this year. This gentleman has what seems to be an ongoing sepsis with an Enterococcus group D, on antibiotics. There is a question of endocarditis and Dr. Juarez is going to perform transesophageal echo today. He has history of aortic valve replacement and bypass surgery sometime in 2016. He also had recently a biventricular ICD on 03/05/2019. Patient is still intubated on 40% FiO2. Hemodynamically, he is stable. He is on a very small dose of Levophed and he is going to go for a LISSET echo to look for any vegetations, especially since he has valve replacement and now has enterococcal sepsis. Blood pressure today is about 104/60, pulse rate is in the 70s. Patient has atrial sensed and ventricular paced rhythm. HEENT: Exam is unremarkable. NECK: Supple, there is JVD. HEART: S1-S2 heard normally. There is a short systolic murmur audible. LUNGS: Reveal diminished air entry, ejection systolic murmur is audible at the base. No diastolic murmur is audible. Lungs reveal diminished air entry. Abdomen and lower extremity exam is unchanged. Patient will have a transesophageal echo today at bedside. I am recommending 2 sets of blood cultures as a surveillance. Dr. Nguyễn is seeing him from an Infectious Disease standpoint. From a cardiac standpoint, I am suggesting that we continue dual antiplatelet therapy and current medications and a transesophageal echo and based on clinical course, will make further recommendations. MMODL / IJN: [id number] /
[2019-03-09 11:33] LABS: Glucose,Whole Blood 118 mg/dL (75-99)
--- NOTE | 2019-03-09 11:39 | P.PN ---
Subjective Patient is seen in follow-up for acute kidney injury. Renal function is stable. Creatinine 1.75 today. Currently maintained on Lasix 40 mg IV twice daily. He is nonoliguric. Scheduled for LISSET today. Levofed is being titrated down. Currently intubated and sedated. Vital signs are stable. Currently on low-dose Levophed. General: The patient appeared well nourished and normally developed. HEENT: Head exam is unremarkable. Neck is without jugular venous distension. Intubated. LUNGS: Breath sounds decreased. HEART: Rate and Rhythm are regular. First and second heart sounds normal. No murmurs, rubs or gallops. ABDOMEN: Abdominal exam reveals normal bowel sounds. Non-tender and non- distended. No evidence of peritonitis. EXTREMITITES: 1+ edema. Objective - Vital Signs Vital signs: Vital Signs Temp 99.3 F 03/09/19 07:30 Pulse 92 03/09/19 11:00 Resp 18 03/09/19 11:00 BP 102/58 03/09/19 11:00 Pulse Ox 95 03/09/19 11:00 Intake & Output 03/08/19 03/09/19 03/09/19 18:59 06:59 18:59 Intake Total 2183.771 6852.573 526.248 Output Total 675 1590 970 Balance 602.661 -541.427 -443.752 Weight 124.2 kg Intake: IV 220 270 250 Ampicillin-Sulbactam 3 gm 100 150 200 In Sodium Chloride 0.9% 100 ml @ 200 mls/hr IVPB Q6H DEANDRA Rx#:[id number] KVO 120 120 50 Intake, IV Titration 487.661 438.573 276.248 Amount Norepinephrine 4 mg In 254.000 204.483 190.923 Sodium Chloride 0.9% 250 ml @ 0.05 MCG/KG/MIN 22. 479 mls/hr IV .[id number] DEANDRA Rx#:[id number] Propofol 1,000 mg In 233.661 234.090 85.325 Empty Bag 1 bag @ Titrate IV .Q0M DEANDRA Rx#: [id number] Tube Feeding 480 280 Other 90 60 Output: Urine 675 1590 970 Other: Voiding Method Indwelling Catheter Indwelling Catheter Indwelling Catheter ABP, PAP, CO, CI - Last Documented Arterial Blood Pressure 83/49 - Labs CBC & Chem 7: 03/09/19 04:30 03/09/19 04:30 Labs: Abnormal Lab Results - Last 24 Hours (Table) 03/08/19 03/08/19 03/09/19 Range/Units 11:43 17:20 00:00 WBC (3.8-10.6) k/uL RBC (4.30-5.90) m/uL Hgb (13.0-17.5) gm/dL Hct (39.0-53.0) % Neutrophils # (1.3-7.7) k/uL Lymphocytes # (1.0-4.8) k/uL ABG pO2 (83-108) mmHg ABG HCO3 (21-25) mmol/L ABG Total CO2 (19-24) mmol/L ABG O2 Saturation (94-97) % Chloride (98-107) mmol/L BUN (9-20) mg/dL Creatinine (0.66-1.25) mg/dL Glucose (74-99) mg/dL POC Glucose (mg/dL) 145 H 132 H 139 H (75-99) mg/dL 03/09/19 03/09/19 03/09/19 Range/Units 04:30 04:30 04:35 WBC 12.3 H (3.8-10.6) k/uL RBC 3.59 L (4.30-5.90) m/uL Hgb 10.2 L (13.0-17.5) gm/dL Hct 31.7 L (39.0-53.0) % Neutrophils # 9.9 H (1.3-7.7) k/uL Lymphocytes # 0.9 L (1.0-4.8) k/uL ABG pO2 120 H (83-108) mmHg ABG HCO3 27 H (21-25) mmol/L ABG Total CO2 29 H (19-24) mmol/L ABG O2 Saturation 98.7 H (94-97) % Chloride 108 H (98-107) mmol/L BUN 42 H (9-20) mg/dL Creatinine 1.75 H (0.66-1.25) mg/dL Glucose 129 H (74-99) mg/dL POC Glucose (mg/dL) (75-99) mg/dL 03/09/19 03/09/19 Range/Units 05:34 11:29 WBC (3.8-10.6) k/uL RBC (4.30-5.90) m/uL Hgb (13.0-17.5) gm/dL Hct (39.0-53.0) % Neutrophils # (1.3-7.7) k/uL Lymphocytes # (1.0-4.8) k/uL ABG pO2 (83-108) mmHg ABG HCO3 (21-25) mmol/L ABG Total CO2 (19-24) mmol/L ABG O2 Saturation (94-97) % Chloride (98-107) mmol/L BUN (9-20) mg/dL Creatinine (0.66-1.25) mg/dL Glucose (74-99) mg/dL POC Glucose (mg/dL) 144 H 118 H (75-99) mg/dL Microbiology - Last 24 Hours (Table) 03/04/19 18:31 Blood Culture Gram Stain - Final Blood Blood Culture - Final Enterococcus faecalis 03/06/19 09:55 Blood Culture Gram Stain - Final Blood Blood Culture - Final Enterococcus faecalis 03/06/19 10:10 Blood Culture Gram Stain - Final Blood Blood Culture - Final Enterococcus faecalis 03/06/19 02:42 Blood Culture Gram Stain - Final Blood Blood Culture - Final Enterococcus faecalis 03/08/19 07:30 Blood Culture Gram Stain - Preliminary Blood 03/08/19 07:30 Blood Culture - Final Blood 03/08/19 08:46 Blood Culture - Final Blood Assessment and Plan Plan: Assessment: 1. Acute kidney injury secondary to ischemic ATN secondary to sepsis. Also component of cardiorenal syndrome. Renal function stable. Creatinine 1.75 today. 2. Enterococcus bacteremia. Scheduled for LISSET today. 3. Acute on chronic systolic CHF with ejection fraction of 20-25%. 4. Volume overload improving with diuresis. 5. Metabolic acidosis secondary to acute kidney injury. Resolved. Plan: Maintain Lasix 40 mg IV twice daily. Follow-up LISSET. Avoid nephrotoxins. Continue to monitor renal function and urine output. Wean Levophed.
--- NOTE | 2019-03-09 12:09 | P.PCN ---
Date of Procedure: 03/09/19 Preoperative Diagnosis: cardiogenic shock, respiratory failure Postoperative Diagnosis: cardiogenic shock, respiratory failure Procedure(s) Performed: Insertion of a Triple Lumen catheter Anesthesia: regional Surgeon: Deandra Pyle Pathology: other Condition: stable Disposition: ICU Indications for Procedure: Procedure was under sterile technique. The patient was already intubated on a mechanical ventilator. The right chest area was cleaned using ChloraPrep. Lidocaine 1% was used and aside the surrounding skin area. A triple lumen 9- Greek Cordis catheter was introduced into the right internal jugular vein using the Seldinger technique. The catheter was threaded smoothly over the guidewire and appropriate blood return was obtained. Each lumen of the catheter was evacuated of air and flushed with sterile saline. The catheter was then sutured in place and sterile dressing was applied. No bedside complications. Chest x- rays to follow to rule out any pneumothorax. A timeout was obtained verifying the patient and the procedure and the site and the positioning and the procedure was completed. The chest x-rays to follow. No bedside complications. No bedside bleeding.
--- NOTE | 2019-03-09 12:11 | P.PCN ---
Date of Procedure: 03/09/19 Preoperative Diagnosis: cardiogenic shock, respiratory failure Postoperative Diagnosis: cardiogenic shock, respiratory failure Procedure(s) Performed: arterial catheter insertion Anesthesia: local Surgeon: Deandra Pyle Pathology: other Condition: stable Disposition: ICU Operative Findings: this procedure was under sterile techniques. The left wrist was prepped in the usual fashion placedon a bedside table in an extended position. The left radial artery was palpated. 1% lidocaine was applied for local anesthesia. Following that, Artline catheter was inserted successfully to the left radial arteryand using the Seldinger technique, the guidewire was removed and the catheter was positioned in place. The catheter was sutured. The guidewire was removed and there was adequate and enough blood flow. The catheter was tested a monitor and there was arterial waveform and blood pressure obtained. No bedside complications or bleeding. The catheter was secured in place. Appropriate dressing was applied.
--- NOTE | 2019-03-09 13:55 | ECHOT ---
TRANSESOPHAGEAL ECHOCARDIOGRAM DATE OF SERVICE: 03/01/2019 PERFORMING PHYSICIAN: Anant Juarez MD. PROCEDURE PERFORMED: Transesophageal echocardiogram. INDICATION: This is a 73-year-old gentleman with history of bioprosthetic aortic valve, who developed acute hypoxic respiratory failure and subsequently blood culture was performed and showed gram-positive cocci in chains. Because of suspected endocarditis, transesophageal echocardiogram was performed. COMPLICATION: None. LEVEL OF SEDATION: The procedure was performed when the patient is intubated on mechanical ventilation. PROCEDURE DESCRIPTION: An informed consent was obtained. The procedure was performed at the bedside in the intensive care unit in room #264. The patient was turned into left lateral position. He was already receiving propofol. I did advance the transesophageal echocardiogram probe to the mid esophagus where a 2D echocardiogram images as well as color Doppler images of various cardiac structures were obtained. Particular attention was paid to the intracardiac valves. The procedure was completed without any complication. FINDINGS: The left ventricle is dilated. The left ventricular systolic function is impaired with EF around 20%. The right ventricle appeared to be dilated. The left atrium and right atrium appeared to be dilated. The left atrial appendage appeared to be free from any thrombus. The aortic valve is bioprosthetic valve with evidence of echodensity attached to the LVOT side of the valve, quite suspicious for endocarditis. The mitral valve appeared to be mildly thickened with moderate MR. There was moderate tricuspid regurgitation seen. The pulmonic valve appeared to be intact. CONCLUSION: 1. An echodensity attached to the LVOT side of the aortic bioprosthetic valve quite concerning for vegetation and endocarditis. 2. Thickened mitral valve leaflets with moderate mitral regurgitation. 3. Moderate tricuspid regurgitation. 4. Intact pulmonic valve leaflets. 5. Impaired left ventricular function with ejection fraction around 20%. 6. Dilated right ventricle with normal function. 7. Moderate biatrial enlargement. 8. Intact left atrial appendage. 9. No evidence of pericardial effusion. MMODL / IJN: [id number] /
--- NOTE | 2019-03-09 14:15 | P.PN ---
Subjective Progress Note Date: 03/09/19 Principal diagnosis: Acute hypoxic respiratory failure secondary to cardiogenic shock, and septic shock. Suspect endocarditis. This is a 71-year-old male patient with known history of ischemic cardiomyopathy along with known history of coronary artery disease and previous aortic valve replacement, AVR, and previous coronary artery bypass surgery, who presented to the hospital because of chest pain and non-STEMI. The patient has had previous catheterizations with stenting done in the distal left main as well as the proximal circumflex. He has a chronically totally occluded RCA. As mentioned, the patient was admitted with chest pain or shortness of breath and acute non- STEMI. The patient underwent another cardiac catheterization and the patient was found to have taken stent to the distal left mainstem to proximal circumflex, patent BELTRAN to LAD, chronic totally occluded RCA. Recommendations were mainly to maximize medical management. The patient was being treated for congestion heart failure. He was receiving Lasix drip and he was having ongoing orthopnea. He was taken yesterday to the [facility] and the patient was given biventricular pacing/AICD. Noted postop, the patient was extubated. He became short of breath and went into significant amount of respiratory distress and within 10 minutes she had to be reintubated. He was brought into the intensive care unit intubated on a mechanical ventilator. Initial blood gases showed a pH of 7.28 with a pCO2 of 51 and pO2 of 234. Necessary vent changes were done. The most recent blood gas showed a pH of 7.48 with a pCO2 of 28 and pO2 of 229. The morning vent settings include a tidal volume 400 with a rate of 18 and FiO2 of 40% with 5. The setting was adjusted based on the most recent blood gas. I noted that the patient is also on pressors and overnight the patient has required norepinephrine infusion and currently is running at 0.1 mcg/kg per minute. The patient is also on Lasix drip at 10 mg an hour. He is producing urine output. However, the patient has developed an acute kidney injury. Creatinine was normal at the time of admission on 02/27/2019 and there has been progressive rise in the creatinine which is up to 2.6 at this point in time. He was he was developing fevers with a temperature 11.6 on 03/04/2019. The patient has blood culture sent a blood culture came back positive for enterococcus group D. The patient was on cefazolin. IV Zosyn was added by the primary care team. This morning, the patient is sedated with propofol is currently running at 50 mics. His, comfortable. He is producing urine output. Her net fluid balance is -642 mL for yesterday. His cardiac rhythm is paced. His white cell count is 19.4. He is obviously septic condition with a positive blood culture. UA the time of admission was negative. He has a Diaz catheter in place. Abdomen is soft. His umbilical hernia. Surgical wound site over the left biventricular pacemaker is dry clean and intact. No significant orotracheal secretions. Chest x-ray from today shows cardiomegaly and lower lobe consolidation as the patient is a left lower lobe consolidation of the right upper lobe! The echocardiogram at shown an ejection fraction of 20-25%. There is moderate concentric left ventricular hypertrophy. There is severe global hypokinesis. No pericardial effusion. The peak gradient across the aortic valve was 35 mmHg. It is a normal functioning bioprosthetic valve. There is moderate mitral regurgitation. Mild pulmonary hypertension. on 03/07/2019 the patient remains sedated and intubated on mechanical ventilator. The patient is on propofol for sedation. The patient is also on a mechanical ventilator on assist control mode with a tidal volume of 000 and the rate of 18 with an FiO2 of 40% and PEEP of 5. The chest x-ray from today shows stable findings and there is left lower lobe consolidation/effusion. ET tube is in a good location. The left ear showed a pH of 7.44 with a pCO2 of 34 and pO2 of 131. Based on this, there is a component of respiratory alkalosis and I dropped a respiratory rate down to 14. The telephone was kept at 500 for now. I took this patient off the Lasix therapy yesterday as the patient's CVP was running low and the patient was also developing acute kidney injury. Today CVP is also low measuring as high as 4-5 millimeters of mercury. Based on that, the patient was started on oral Lasix set of IV Lasix for cardiology. He is producing adequate amount of urine output. Creatinine is also improving and is down to 2.1. The patient is afebrile. The patient was seen by infectious disease. Antibiotic adjustments were done and the patient was placed on a combination of Unasyn and gentamicin. No clear indication for endocarditis. The patient has 3 positive blood culture that was positive for E faecalis, in the patient was simplified back to Unasyn and gentamicin was discontinued as the patient was found to be having a Enterococcus faecalis resistant to gentamicin.. The patient is producing adequate amount of urine output. He is still on pressors and the present doses been weaned down to 0.07 micrograms per kilogram per minute of norepinephrine infusion. The patient will be started on enteral feeding for nutritional support. Cardiology is on the case. Cardiac rhythm remains paced. No significant electrolyte imbalance in the patient's white cell count is down to 10.5. 03/08/2019, the patient remains intubated on a mechanical ventilator. The patient remains hemodynamically unstable requiring pressors and the norepinephrine infusion is running at 0.08 mcg/kg per minute. He is also on Prinivil at 40 mics per KG. The patient a mechanical ventilator on assist control mode with a tidal volume of 500 and rate of 18 with an FiO2 of 40% and a PEEP of 5. Chest x-ray is unchanged compared to yesterday and there are some white pulmonary vessel congestion. The patient is producing 25 mL of urine output on an hourly basis. Net fluid balance is positive to 11 mL over the past 24 hours. He is currently on oral Lasix. He is also on norepinephrine infusion. He is on enteral feeding for nutritional support. He is receiving before for sedation. Note that all of the blood cultures came back positive for Enterococcus faecalis. The patient remains on IV Unasyn. Follow-up cultures were obtained to make sure there is no ongoing bacteremia. There is a high likely what that it there may be a component of infective endocarditis. The patient will need a LISSET to evaluate this further. His cardiac rhythm is paced. The fibrillator pocket is clean and intact at this point in time. As for his continued kidney injury, the patient's creatinine is improving and the creatinine is down to 1.72. The white cell count is also down to 10.5 and the patient is responding to IV Unasyn for now. Reevaluated today on 03/09/2019, patient remains on mechanical ventilation, he is still on norepinephrine at 0.05 mcg/kg/m, still on propofol at 50 mcg/kg/m. He is on mechanical ventilation, assist control rate of 18, FiO2 is 40%, PEEP of 5. Tidal volume is 500. Transesophageal echocardiogram is suspicious for vegetations involving the aortic bioprosthetic valve there was also evidence of thickened mitral valve leaflets with moderate mitral regurgitation. His LV function was noted to be impaired ejection fraction of 20%. ABG this morning showed a pO2 of 120 pCO2 of 42 pH of 7.42 11 lites are normal renal profile is abnormal with BUN of 42 creatinine of 1.75 WBC count is 12.3 hemoglobin is 10.2. Chest x-ray is suspicious for mild interstitial edema and small bilateral pleural effusions. There is also some retrocardiac atelectasis. Patient is sedated, on mechanical ventilation, I have no plans to wean the patient today since LISSET was scheduled to be done shortly after I evaluated the patient. Objective - Vital Signs Vital signs: Vital Signs Temp 99.6 F 03/09/19 12:00 Pulse 105 H 03/09/19 13:00 Resp 21 03/09/19 13:00 BP 102/58 03/09/19 10:00 Pulse Ox 98 03/09/19 13:00 Intake & Output 03/08/19 03/09/19 03/09/19 18:59 06:59 18:59 Intake Total 9269.216 6216.573 582.739 Output Total 675 1590 1620 Balance 602.661 -541.427 -1037.261 Weight 124.2 kg Intake: IV 220 270 270 Ampicillin-Sulbactam 3 gm 100 150 200 In Sodium Chloride 0.9% 100 ml @ 200 mls/hr IVPB Q6H DEANDRA Rx#:[id number] KVO 120 120 70 Intake, IV Titration 487.661 438.573 312.739 Amount Norepinephrine 4 mg In 254.000 204.483 227.414 Sodium Chloride 0.9% 250 ml @ 0.05 MCG/KG/MIN 22. 479 mls/hr IV .[id number] DEANDRA Rx#:[id number] Propofol 1,000 mg In 233.661 234.090 85.325 Empty Bag 1 bag @ Titrate IV .Q0M DEANDRA Rx#: [id number] Tube Feeding 480 280 Other 90 60 Output: Urine 675 1590 1620 Other: Voiding Method Indwelling Catheter Indwelling Catheter Indwelling Catheter ABP, PAP, CO, CI - Last Documented Arterial Blood Pressure 131/68 - Exam Physical Exam: Revealed a 73-year-old white male, sedated, on mechanical ventilation, on propofol drip. In no distress. Head: Atraumatic, normocephalic. Endotracheal tube is intact and orogastric tube is intact. HEENT:[Neck is supple.] [No neck masses.] [No thyromegaly.] [No JVD.] Moist mucous membranes Chest: Crackles at the bases noted bilaterally, symmetrical chest expansion.] Cardiac Exam: [Normal S1 and S2, no S3 gallop, 2/6 systolic murmur thought the precordium] Abdomen: [Soft, nontender, no megaly, no rebound, no guarding, normal bowel sounds.] Extremities: [No clubbing, no edema, no cyanosis.] Neurological Exam: Cannot be assessed, patient is fully sedated. Psychiatric: Cannot be assessed Lymphatics: No lymphadenopathy. Skin: No rashes - Labs CBC & Chem 7: 03/09/19 04:30 03/09/19 04:30 Labs: Abnormal Lab Results - Last 24 Hours (Table) 03/08/19 03/09/19 03/09/19 Range/Units 17:20 00:00 04:30 WBC 12.3 H (3.8-10.6) k/uL RBC 3.59 L (4.30-5.90) m/uL Hgb 10.2 L (13.0-17.5) gm/dL Hct 31.7 L (39.0-53.0) % Neutrophils # 9.9 H (1.3-7.7) k/uL Lymphocytes # 0.9 L (1.0-4.8) k/uL ABG pO2 (83-108) mmHg ABG HCO3 (21-25) mmol/L ABG Total CO2 (19-24) mmol/L ABG O2 Saturation (94-97) % Chloride (98-107) mmol/L BUN (9-20) mg/dL Creatinine (0.66-1.25) mg/dL Glucose (74-99) mg/dL POC Glucose (mg/dL) 132 H 139 H (75-99) mg/dL 03/09/19 03/09/19 03/09/19 Range/Units 04:30 04:35 05:34 WBC (3.8-10.6) k/uL RBC (4.30-5.90) m/uL Hgb (13.0-17.5) gm/dL Hct (39.0-53.0) % Neutrophils # (1.3-7.7) k/uL Lymphocytes # (1.0-4.8) k/uL ABG pO2 120 H (83-108) mmHg ABG HCO3 27 H (21-25) mmol/L ABG Total CO2 29 H (19-24) mmol/L ABG O2 Saturation 98.7 H (94-97) % Chloride 108 H (98-107) mmol/L BUN 42 H (9-20) mg/dL Creatinine 1.75 H (0.66-1.25) mg/dL Glucose 129 H (74-99) mg/dL POC Glucose (mg/dL) 144 H (75-99) mg/dL 03/09/19 Range/Units 11:29 WBC (3.8-10.6) k/uL RBC (4.30-5.90) m/uL Hgb (13.0-17.5) gm/dL Hct (39.0-53.0) % Neutrophils # (1.3-7.7) k/uL Lymphocytes # (1.0-4.8) k/uL ABG pO2 (83-108) mmHg ABG HCO3 (21-25) mmol/L ABG Total CO2 (19-24) mmol/L ABG O2 Saturation (94-97) % Chloride (98-107) mmol/L BUN (9-20) mg/dL Creatinine (0.66-1.25) mg/dL Glucose (74-99) mg/dL POC Glucose (mg/dL) 118 H (75-99) mg/dL Microbiology - Last 24 Hours (Table) 03/08/19 08:46 Blood Culture Gram Stain - Preliminary Blood 03/08/19 07:30 Blood Culture Gram Stain - Preliminary Blood 03/04/19 18:31 Blood Culture Gram Stain - Final Blood Blood Culture - Final Enterococcus faecalis 03/06/19 09:55 Blood Culture Gram Stain - Final Blood Blood Culture - Final Enterococcus faecalis 03/06/19 10:10 Blood Culture Gram Stain - Final Blood Blood Culture - Final Enterococcus faecalis 03/06/19 02:42 Blood Culture Gram Stain - Final Blood Blood Culture - Final Enterococcus faecalis 03/08/19 07:30 Blood Culture - Final Blood 03/08/19 08:46 Blood Culture - Final Blood Assessment and Plan Assessment: Impression: 1 acute hypoxic respiratory failure secondary to cardiogenic shock and septic shock. 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 3 severe LV dysfunction and cardiomyopathy, ischemic in nature, ejection fraction of 20-25% post-insertion of AICD. 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 6 septic shock secondary to enterococcal infection 7 acute kidney injury secondary to sepsis, ATN, and possibly contrast nephropathy 8 history of underlying COPD, hypertension, hyperlipidemia, obesity, and gener alized anxiety disorder. Recommendation: Continue ventilatory support, nutritional support, hemodynamic support, antibiotics, GI and DVT prophylaxis, we'll continue to follow. Patient is obviously critically ill, and prognosis is definitely poor and guarded. Critical care time is 40 minutes. Time with Patient: Greater than 30
[2019-03-09] MEDS ORDERED: MD COMMUNICATION TO PHARMACY 1 EACH MISC PO PRN (16:49)
[2019-03-09 18:31] LABS: Glucose,Whole Blood 111 mg/dL (75-99)
[2019-03-09] MEDS: HYDROmorphone 1 MG/ML 1 ML SYRINGE IVP PRN (20:18)
[2019-03-09] MEDS: CLOPIDOGREL 75 MG TAB PO SCH (20:24)
[2019-03-09] MEDS ORDERED: DILTIAZEM 5 MG/ML 5 ML VIAL IVP STA (21:35)
[2019-03-09] MEDS: DILTIAZEM 125 MG in SODIUM CHLORIDE 0.9% 100 ML IV SCH (22:13)
--- NOTE | 2019-03-09 22:39 | P.PN ---
Subjective Progress Note Date: 03/09/19 This is a 73-year-old male with known history of ischemic cardiomyopathy along with known history of coronary artery disease and previous aortic valve replacement, AVR, and previous coronary artery bypass surgery. He presented on March 01 because of chest pain and found to have non-STEMI. He underwent cardiac catheterization with Dr. Juarez on 03/03 and the patient was found to have patent stent to the distal left mainstem to proximal circumflex, patent BELTRAN to LAD, chronic totally occluded RCA. Recommendations were mainly to maximize medical management. Patient was apparently having runs of V. tach and a consult was added for Dr. Ho. Patient subsequently underwent a biventricular ICD implantation on March 05. Patient was intubated prior to the procedure as apparently he is unable to lay flat for this. He received 700 mL of fluid during procedure. He was extubated last evening for only 3 minutes and was re- intubated. He was given Lasix 40 mg IV push followed by Lasix drip at 10 mg per hour. The Lasix to was discontinued this morning. Patient remains intubated, on sedation and on levo fed. His chest x-ray this morning reveals a right upper lobe pneumonia and probable heart failure. Patient has been running fevers up to 101.6 on evening of 925. White count 20.6, renal function is worsening with a BUN 45 and creatinine 2.6. Urinalysis was clear with nitrate and l eukoesterase negative. Urine output has been on the lower side running about 50 mL per hour or less. Blood culture from 03/04 is group D enterococcus and thus this consult was requested. 03/09/2019 the patient had evidence of isolated enterococcal bacteremia. The case was discussed with cardiology and a LISSET has been performed today which is verified evidence of a vegetation on the bioprosthetic aortic valve. There is no evidence of any ring abscess or of extensive valvular disease. The patient has shown some improvement in that his fever is improved and his leukocytosis is improving. Objective - Vital Signs Vital signs: Vital Signs Temp 99.9 F H 03/09/19 16:00 Pulse 104 H 03/09/19 19:25 Resp 16 03/09/19 19:00 BP 114/56 03/09/19 13:59 Pulse Ox 98 03/09/19 19:00 Intake & Output 03/09/19 03/09/19 03/10/19 06:59 18:59 06:59 Intake Total 9135.684 2843.778 20 Output Total 1590 2295 200 Balance -541.427 -953.222 -180 Weight 124.2 kg Intake: IV 270 530 20 Ampicillin-Sulbactam 3 gm 150 400 In Sodium Chloride 0.9% 100 ml @ 200 mls/hr IVPB Q6H DEANDRA Rx#:[id number] KVO 120 130 20 Intake, IV Titration 438.573 811.778 Amount Ampicillin-Sulbactam 3 gm 200 In Sodium Chloride 0.9% 100 ml @ 200 mls/hr IVPB Q6H DEANDRA Rx#:[id number] Norepinephrine 4 mg In 204.483 254.000 Sodium Chloride 0.9% 250 ml @ 0.05 MCG/KG/MIN 22. 479 mls/hr IV .[id number] DEANDRA Rx#:[id number] Propofol 1,000 mg In 234.090 257.778 Empty Bag 1 bag @ Titrate IV .Q0M DEANDRA Rx#: [id number] cefTRIAXone 2 gm In 100 Sodium Chloride 0.9% 50 ml @ 100 mls/hr IVPB Q24HR DEANDRA Rx#:[id number] Tube Feeding 280 Other 60 Output: Urine 1590 2295 200 Other: Voiding Method Indwelling Catheter Indwelling Catheter ABP, PAP, CO, CI - Last Documented Arterial Blood Pressure 115/57 - Exam Gen: This is a 73-year-old male. He is on sedation, an ICU bed, intubated and on mechanical ventilation. Patient opens eyes to verbal stimuli and touch. HEENT: Head is atraumatic, normocephalic. Pupils equal, round. Sclerae is anicteric. Conjunctiva pink. Oral mucous membranes are moist. Appears patient is edentulous. ET and gastric tube are in place orally. NECK: Supple. No JVD. No lymphadenopathy. No thyromegaly. LUNGS: Diminished bilaterally. No wheezes or rhonchi. No intercostal retractions. HEART: Regular rate and rhythm. No murmur. There is a dressing over the AICD, left upper chest wall, 2 small areas of dried blood. No significant edema around the area. ABDOMEN: Soft. Bowel sounds are present. No masses. No tenderness. No redness under her abdominal fold. Diaz catheter draining clear mditry urine. EXTREMITIES: Trace bilateral pedal edema. No wounds, no cellulitis noted. Dors severo pedis 1+ bilaterally. NEUROLOGICAL: Patient is sedated. - Labs CBC & Chem 7: 03/09/19 04:30 03/09/19 04:30 Labs: Abnormal Lab Results - Last 24 Hours (Table) 03/09/19 03/09/19 03/09/19 Range/Units 00:00 04:30 04:30 WBC 12.3 H (3.8-10.6) k/uL RBC 3.59 L (4.30-5.90) m/uL Hgb 10.2 L (13.0-17.5) gm/dL Hct 31.7 L (39.0-53.0) % Neutrophils # 9.9 H (1.3-7.7) k/uL Lymphocytes # 0.9 L (1.0-4.8) k/uL ABG pO2 (83-108) mmHg ABG HCO3 (21-25) mmol/L ABG Total CO2 (19-24) mmol/L ABG O2 Saturation (94-97) % Chloride 108 H (98-107) mmol/L BUN 42 H (9-20) mg/dL Creatinine 1.75 H (0.66-1.25) mg/dL Glucose 129 H (74-99) mg/dL POC Glucose (mg/dL) 139 H (75-99) mg/dL 03/09/19 03/09/19 03/09/19 Range/Units 04:35 05:34 11:29 WBC (3.8-10.6) k/uL RBC (4.30-5.90) m/uL Hgb (13.0-17.5) gm/dL Hct (39.0-53.0) % Neutrophils # (1.3-7.7) k/uL Lymphocytes # (1.0-4.8) k/uL ABG pO2 120 H (83-108) mmHg ABG HCO3 27 H (21-25) mmol/L ABG Total CO2 29 H (19-24) mmol/L ABG O2 Saturation 98.7 H (94-97) % Chloride (98-107) mmol/L BUN (9-20) mg/dL Creatinine (0.66-1.25) mg/dL Glucose (74-99) mg/dL POC Glucose (mg/dL) 144 H 118 H (75-99) mg/dL 03/09/19 Range/Units 17:41 WBC (3.8-10.6) k/uL RBC (4.30-5.90) m/uL Hgb (13.0-17.5) gm/dL Hct (39.0-53.0) % Neutrophils # (1.3-7.7) k/uL Lymphocytes # (1.0-4.8) k/uL ABG pO2 (83-108) mmHg ABG HCO3 (21-25) mmol/L ABG Total CO2 (19-24) mmol/L ABG O2 Saturation (94-97) % Chloride (98-107) mmol/L BUN (9-20) mg/dL Creatinine (0.66-1.25) mg/dL Glucose (74-99) mg/dL POC Glucose (mg/dL) 111 H (75-99) mg/dL Microbiology - Last 24 Hours (Table) 03/08/19 08:46 Blood Culture Gram Stain - Preliminary Blood 03/08/19 07:30 Blood Culture Gram Stain - Preliminary Blood 03/04/19 18:31 Blood Culture Gram Stain - Final Blood Blood Culture - Final Enterococcus faecalis 03/06/19 09:55 Blood Culture Gram Stain - Final Blood Blood Culture - Final Enterococcus faecalis 03/06/19 10:10 Blood Culture Gram Stain - Final Blood Blood Culture - Final Enterococcus faecalis 03/06/19 02:42 Blood Culture Gram Stain - Final Blood Blood Culture - Final Enterococcus faecalis 03/08/19 07:30 Blood Culture - Final Blood 03/08/19 08:46 Blood Culture - Final Blood Laboratory Results WBC 12.3 k/uL (3.8-10.6) H 03/09/19 04:30 RBC 3.59 m/uL (4.30-5.90) L 03/09/19 04:30 Hgb 10.2 gm/dL (13.0-17.5) L 03/09/19 04:30 Hct 31.7 % (39.0-53.0) L 03/09/19 04:30 MCV 88.3 fL (80.0-100.0) 03/09/19 04:30 MCH 28.5 pg (25.0-35.0) 03/09/19 04:30 MCHC 32.3 g/dL (31.0-37.0) 03/09/19 04:30 RDW 14.3 % (11.5-15.5) 03/09/19 04:30 Plt Count 168 k/uL (150-450) 03/09/19 04:30 Neutrophils % 80 % 03/09/19 04:30 Lymphocytes % 8 % 03/09/19 04:30 Monocytes % 5 % 03/09/19 04:30 Eosinophils % 5 % 03/09/19 04:30 Basophils % 0 % 03/09/19 04:30 Neutrophils # 9.9 k/uL (1.3-7.7) H 03/09/19 04:30 Lymphocytes # 0.9 k/uL (1.0-4.8) L 03/09/19 04:30 Monocytes # 0.6 k/uL (0-1.0) 03/09/19 04:30 Eosinophils # 0.6 k/uL (0-0.7) 03/09/19 04:30 Basophils # 0.1 k/uL (0-0.2) 03/09/19 04:30 Hypochromasia Moderate 03/09/19 04:30 Anisocytosis Slight 03/01/19 15:07 PT 11.8 sec (9.0-12.0) 03/01/19 15:07 INR 1.1 (<1.2) 03/01/19 15:07 APTT 53.7 sec (22.0-30.0) H 03/02/19 21:57 Sample Site EMINENCE 03/09/19 04:35 ABG pH 7.42 (7.35-7.45) 03/09/19 04:35 ABG pCO2 42 mmHg (35-45) 03/09/19 04:35 ABG pO2 120 mmHg (83-108) H 03/09/19 04:35 ABG HCO3 27 mmol/L (21-25) H 03/09/19 04:35 ABG Total CO2 29 mmol/L (19-24) H 03/09/19 04:35 ABG O2 Saturation 98.7 % (94-97) H 03/09/19 04:35 ABG Base Excess 2.9 mmol/L 03/09/19 04:35 Manuel Test Yes 03/09/19 04:35 FiO2 40 % 03/09/19 04:35 Sodium 144 mmol/L (137-145) 03/09/19 04:30 Potassium 4.1 mmol/L (3.5-5.1) 03/09/19 04:30 Chloride 108 mmol/L (98-107) H 03/09/19 04:30 Carbon Dioxide 29 mmol/L (22-30) 03/09/19 04:30 Anion Gap 7 mmol/L 03/09/19 04:30 BUN 42 mg/dL (9-20) H 03/09/19 04:30 Creatinine 1.75 mg/dL (0.66-1.25) H 03/09/19 04:30 Est GFR (CKD-EPI)AfAm 44 (>60 ml/min/1.73 sqM) 03/09/19 04:30 Est GFR (CKD-EPI)NonAf 38 (>60 ml/min/1.73 sqM) 03/09/19 04:30 Glucose 129 mg/dL (74-99) H 03/09/19 04:30 POC Glucose (mg/dL) 111 mg/dL (75-99) H 03/09/19 17:41 POC Glu Prom Burn Off Operator ID Adonis Keith 03/09/19 17:41 Plasma Lactic Acid [place] 1.2 mmol/L (0.7-2.0) 03/06/19 10:10 Calcium 8.5 mg/dL (8.4-10.2) 03/09/19 04:30 Phosphorus 3.8 mg/dL (2.5-4.5) 03/09/19 04:30 Magnesium 2.3 mg/dL (1.6-2.3) 03/09/19 04:30 Total Bilirubin 0.9 mg/dL (0.2-1.3) 03/01/19 15:07 AST 55 U/L (17-59) 03/01/19 15:07 ALT 60 U/L (21-72) 03/01/19 15:07 Alkaline Phosphatase 154 U/L (38-126) H 03/01/19 15:07 Troponin I 1.080 ng/mL (0.000-0.034) H* 03/02/19 04:09 NT-Pro-B Natriuret Pep 05877 pg/mL 03/01/19 15:07 Total Protein 6.8 g/dL (6.3-8.2) 03/01/19 15:07 Albumin 3.4 g/dL (3.5-5.0) L 03/01/19 15:07 Triglycerides 105 mg/dL (<150) 03/02/19 04:09 Cholesterol 188 mg/dL (<200) 03/02/19 04:09 LDL Cholesterol, Calc 148 mg/dL (0-99) H 03/02/19 04:09 HDL Cholesterol 19 mg/dL (40-60) L 03/02/19 04:09 TSH 3.570 mIU/L (0.465-4.680) 03/04/19 02:17 Urine Color Yellow 03/04/19 23:09 Urine Appearance Clear (Clear) 03/04/19 23:09 Urine pH 5.0 (5.0-8.0) 03/04/19 23:09 Ur Specific [place] 1.013 (1.001-1.035) 03/04/19 23:09 Urine Protein Trace (Negative) H 03/04/19 23:09 Urine Glucose (UA) Negative (Negative) 03/04/19 23:09 Urine Ketones Negative (Negative) 03/04/19 23:09 Urine Blood Negative (Negative) 03/04/19 23:09 Urine Nitrite Negative (Negative) 03/04/19 23:09 Urine Bilirubin Negative (Negative) 03/04/19 23:09 Urine Urobilinogen <2.0 mg/dL (<2.0) 03/04/19 23:09 Ur Leukocyte Esterase Negative (Negative) 03/04/19 23:09 Microbiology 03/08/19 08:46 Blood Blood Culture Gram Stain - Preliminary 03/08/19 07:30 Blood Blood Culture Gram Stain - Preliminary 03/04/19 18:31 Blood Blood Culture Gram Stain - Final 03/04/19 18:31 Blood Blood Culture - Final Enterococcus faecalis 03/06/19 09:55 Blood Blood Culture Gram Stain - Final 03/06/19 09:55 Blood Blood Culture - Final Enterococcus faecalis 03/06/19 10:10 Blood Blood Culture Gram Stain - Final 03/06/19 10:10 Blood Blood Culture - Final Enterococcus faecalis 03/06/19 02:42 Blood Blood Culture Gram Stain - Final 03/06/19 02:42 Blood Blood Culture - Final Enterococcus faecalis 03/08/19 07:30 Blood Blood Culture - Final 03/08/19 08:46 Blood Blood Culture - Final 03/06/19 11:12 Sputum Gram Stain - Final 03/06/19 11:12 Sputum Sputum Culture - Final 03/05/19 17:44 Blood Blood Culture Gram Stain - Final 03/05/19 17:44 Blood Blood Culture - Final Enterococcus faecalis 03/06/19 10:10 Blood Blood Culture - Final 03/06/19 09:55 Blood Blood Culture - Final 03/05/19 17:44 Blood Blood Culture - Final 03/06/19 02:42 Blood Blood Culture - Final 03/04/19 18:31 Blood Blood Culture - Final - Imaging and Cardiology Chest x-ray: report reviewed (stable to improving infiltrates) Assessment and Plan (1) Acute on chronic systolic CHF (congestive heart failure) Current Visit: Yes Status: Acute Code(s): I50.23 - ACUTE ON CHRONIC SYSTOLIC (CONGESTIVE) HEART FAILURE SNOMED Code(s): 896658000 (2) Cardiomyopathy Current Visit: Yes Status: Acute Code(s): I42.9 - CARDIOMYOPATHY, UNSPECIFIED SNOMED Code(s): 79672681 (3) Prosthetic valve endocarditis Narrative/Plan: 73-year-old gentleman with aortic valve replacement and prior CABG presented to Hospital and some he in worsening of his ischemic cardiomyopathy. He underwent biventricular ICD implantable pacemaker March 05. The he developed a fever and there are now positive blood cultures. The laboratory has identified enterococcus in the blood cultures. There is no specific other site of infection at this time other than the bacteremia. With aortic valve replacement concerns underlying endocarditis. Consequently antimicrobial therapy is transitioned to ampicillin sulbactam and gentamicin in synergistic dosing dosed by the pharmacy. Aware of his renal insufficiency however until bacteremia clears and there is a definitive alternative cause of the bacteremia would require gentamicin therapy for synergy. Follow blood cultures are requested. The patient has had central line and A-line just placed by the injection machine operator. He is receiving fluid resuscitation and vasopressor therapy. 03/09/2019 the patient has had a LISSET performed today which verifies evidence of vegetation on the bioprosthetic aortic valve. The patient has many positive blood cultures. Enterococcus has been isolated. The patient has evidence of gentamicin synergy resistance. Gentamicin was discontinued. With this finding ceftriaxone is added to the Unasyn in attempts for synergy. Follow blood cultures will be obtained. The patient's renal failure is improving. He seemingly more stable. Hopefully he will now start to have evidence of clearance of his bacteremia with the synergistic combination. Current Visit: Yes Status: Acute Code(s): T82.6XXA - INFECT/INFLM REACTION DUE TO CARDIAC VALVE PROSTHESIS, INIT; I38 - ENDOCARDITIS, VALVE UNSPECIFIED SNOMED Code(s): 936998508
[2019-03-09 23:48] LABS: Glucose,Whole Blood 130 mg/dL (75-99)
[2019-03-10] MEDS: AMPICILLIN-SULBACTAM 3 GM in SODIUM CHLORIDE 0.9% 100 ML IVPB SCH ×4 (02:26→20:52)
[2019-03-10 04:21] LABS: Basophils # (A) 0.1 k/uL (0-0.2); Basophils % (A) 1 %; Eosinophils # (A) 0.7 k/uL (0-0.7); Eosinophils % (A) 5 %; HCT 32.3 % (39.0-53.0); HGB 10.5 gm/dL (13.0-17.5); Hypochromasia Moderate; Lymphocytes # (A) 1.1 k/uL (1.0-4.8); Lymphocytes % (A) 8 %; MCH 28.6 pg (25.0-35.0); MCHC 32.4 g/dL (31.0-37.0); MCV 88.5 fL (80.0-100.0); Mean Platelet Volume 8.6; Monocytes # (A) 0.9 k/uL (0-1.0); Monocytes % (A) 6 %; Neutrophils # (A) 11.8 k/uL (1.3-7.7); Neutrophils % (A) 79 %; Platelet Count 223 k/uL (150-450); RBC 3.65 m/uL (4.30-5.90); RDW 14.2 % (11.5-15.5); WBC 14.8 k/uL (3.8-10.6)
[2019-03-10 04:32] LABS: Calcium 8.7 mg/dL (8.4-10.2); Potassium 3.9 mmol/L (3.5-5.1)
[2019-03-10] MEDS: PROPOFOL 1,000 MG in EMPTY BAG 1 BAG IV SCH ×4 (05:27→21:38)
[2019-03-10] MEDS: INSULIN ASPART (NovoLOG) 100 UNIT/ML VIAL SQ SCH ×3 (05:36→16:47)
[2019-03-10 05:57] LABS: Glucose,Whole Blood 132 mg/dL (75-99)
--- NOTE | 2019-03-10 06:44 | XR ---
EXAMINATION TYPE: XR chest 1V portable DATE OF EXAM: 03/10/2019 COMPARISON: 03/09/2019 INDICATION: Tube placement TECHNIQUE: Single frontal view of the chest is obtained. FINDINGS: The heart size is mildly prominent. The pulmonary vasculature and a be slightly prominent. Mild left lower lobe infiltrate is present. Some very minimal subsegmental atelectasis may be at the right base. Right central venous catheter is present with the tip in the deep right atrium. Endotracheal tube tip is above the yoseph. Nasogastric tube transverses the thorax. Sternotomy wires are present from card iac valve surgery. Electronic device overlies left chest. IMPRESSION: 1. Cardiomegaly with mild prominent pulmonary vascular markings and minimal bibasilar infiltrates. Co rrelate for volume overload and early congestive heart failure. 2. Multiple lines and catheters discussed above.
[2019-03-10 07:33] LABS: ABG Base Excess 5.9 mmol/L; ABG HCO3 30 mmol/L (21-25); ABG Oxygen Saturation 98.5 % (94-97); ABG PCO2 43 mmHg (35-45); ABG PH 7.45 (7.35-7.45); ABG PO2 117 mmHg (83-108); ABG TCO2 31 mmol/L (19-24); Allen Test Performed? Yes
[2019-03-10] MEDS: IPRATROPIUM 0.5 MG/2.5 ML NEBU INHALATION SCH ×4 (08:35→21:11)
[2019-03-10] MEDS: ASPIRIN 81 MG PO SCH (09:37)
[2019-03-10] MEDS: ATORVASTATIN 40 MG TAB PO SCH (09:37)
[2019-03-10] MEDS: FUROSEMIDE 10 MG/ML 4 ML VIAL IV SCH ×2 (09:37→20:53)
[2019-03-10] MEDS: PANTOPRAZOLE 40 MG/10 ML VIAL IVP SCH (09:37)
[2019-03-10] MEDS: CHLORHEXIDINE GLUCONATE 15 ML CUP MUCOUS MEM SCH ×2 (09:37→20:52)
[2019-03-10] MEDS: METOPROLOL TARTRATE 25 MG TAB PO SCH ×3 (09:37→20:52)
--- NOTE | 2019-03-10 10:07 | P.PN ---
Subjective This is a pleasant 73 years old male with past medical history of coronary artery disease patient , , heart failure, asthma, GERD, hyperlipidemia, h ypertension, osteoarthritis, valvular heart disease. Patient was admitted with non-STEMI, he underwent cardiac cath on 03/03/2019, showing patent stents and coronaries. Also patient underwent elective EP study yesterday and status post AICD placement, patient is currently in the ICU intubated and could not provide information, he was extubated for short time before he needed reintubation. Information was taken from the staff at the medical records as patient cannot contribute to history . He has low ejection fraction 20-25%. Patient is obese and he needed low dose of pressors. He has distended abdomen, possibly from fat. No focal neurological findings. Also he has positive blood culture with enterococcus and trending up leukocytes. Infectious disease was consulted, patient is currently on Zosyn. Also patient creatinine is trending up however patient is making reasonable urine output, he was on Lasix drip but this was stopped. 03/07/2019 Patient in the ICU intubated and sedated, his vitals with blood pressure 130/54, and he is saturating 98%. His WBC is back to normal at 10.5. Creatinine is at 2.14 with slight improvement down from 2.6 yesterday. He has several blood culture positive for enterococcus. Chest x-ray showing no significant change. Patient has been evaluated by knife setter and divisional storekeeper, divisional storekeeper considering LISSET if blood culture remains positive. Patient also was started on gentamicin and Unasyn as per infectious disease recommendation 03/08/2019 Patient remains in the ICU, he still intubated and sedated. Blood pressure 108/52, saturating 96%, heart rate is 70. K, hemoglobin is stable at 10.4, platelets are within normal limits. Creatinine is improving gradually down to 1.7, electrolytes included sodium and potassium are within normal limits, sugar is running between 129-155. Magnesium is elevated at 2.5,. He has several bloo d culture that's positive for group D enterococcus faecalis, cardiology R following the case and the plan is for transesophageal echocardiogram tomorrow to rule out endocarditis 03/09/2019 Patient is ICU intubated and sedated, patient is planned to go for transesophageal echocardiogram today to rule out endocarditis in view of his persistent bacteremia/septicemia. Patient remains currently on Unasyn. Patient is slightly bradycardic at 57-60, he had low-grade temperature yesterday of 100.2, blood pressure 102/58, lap showing mild leukocytosis of 12.3 K, hemoglobin is stable. Creatinine is improving to 1.75. ABGs showed pH of 7.4, pCO2 42 which are within normal limits, pO2 is 120. Repeat blood cultures are pending, repeat chest x-ray from today showing fluid overload with interstitial edema with possible atelectasis. 03/10/2019 Patient remains in the ICU intubated and sedated, yesterday he had a LISSET which showing low ejection fraction around 20% with agitation note dictated on the aortic valve. Also patient noted to bleed easily given from subcutaneous injection site, currently is on subcu heparin to 8 which is lower to every 12 this morning, he is also on aspirin and Plavix, platelets are normal. We don't to check PT and INR and PTT today. Last night patient was started on Cardizem drip for better control of his blood pressure and heart rate and blood pressure. Patient is followed closely by cardiology and rectal care team. Prognosis is extremely poor Review of systems: N/a Active Medications Generic Name Dose Route Start Last Admin Trade Name Freq PRN Reason Stop Dose Admin Acetaminophen 650 mg 03/05/19 18:53 Tylenol Tab PO Q6HR PRN Mild Pain Albuterol Sulfate 2.5 mg 03/01/19 20:10 03/06/19 15:31 Ventolin Nebulized INHALATION 2.5 mg Q4H PRN Administration sob Allopurinol 100 mg 03/01/19 20:10 Zyloprim PO HS PRN gout Aspirin 81 mg 03/09/19 09:00 03/10/19 09:37 Aspirin PO 81 mg DAILY DEANDRA Administration Atorvastatin Calcium 40 mg 03/09/19 09:00 03/10/19 09:37 Lipitor PO 40 mg DAILY DEANDRA Administration Bisacodyl 10 mg 03/01/19 20:12 Dulcolax PO DAILY PRN Constipation Chlorhexidine Gluconate 15 ml 03/06/19 09:00 03/10/19 09:37 Peridex MUCOUS MEM 15 ml BID DEANDRA Administration Clopidogrel Bisulfate 75 mg 03/01/19 21:00 03/09/19 20:24 Plavix PO 75 mg HS DEANDRA Administration Furosemide 40 mg 03/08/19 21:00 03/10/19 09:37 Lasix IV 40 mg Q12HR DEANDRA Administration Heparin Sodium (Porcine) 5,000 unit 03/10/19 21:00 Heparin SQ Q12HR DEANDRA Hydromorphone HCl 1 mg 03/08/19 15:04 03/09/19 20:18 Dilaudid IVP 1 mg Q3H PRN Administration Pain Propofol 1,000 mg/ IV Solution 100 mls @ 0 mls/hr 03/05/19 22:30 03/10/19 08: 08 IV 25 mcg/kg/min .Q0M DEANDRA 18.675 mls/hr Titration Protocol Titrate Norepinephrine Bitartrate 4 mg 254 mls @ 22.479 mls/hr 03/05/19 23:45 03/10/19 01:44 / Sodium Chloride IV 0.06 mcg/kg/min .[id number] DEANDRA 26.975 mls/hr Titration Protocol 0.05 MCG/KG/MIN Ampicillin Sodium/Sulbactam 100 mls @ 200 mls/hr 03/08/19 14:00 03/10/19 08:05 Sodium 3 gm/ Sodium Chloride IVPB 200 mls/hr Q6H DEANDRA Administration Ceftriaxone Sodium 2 gm/ 50 mls @ 100 mls/hr 03/09/19 17:00 03/10/19 09:37 Sodium Chloride IVPB 100 mls/hr Q24HR DEANDRA Administration Diltiazem HCl 125 mg/ Sodium 125 mls @ 0 mls/hr 03/09/19 21:45 03/09/19 22:13 Chloride IV 5 ml/hr .Q0M DEANDRA 5 mls/hr Administration Protocol Per Protocol Insulin Aspart 0 unit 03/07/19 06:00 03/10/19 05:36 Novolog SQ 1 unit Q6H DEANDRA Administration Protocol Ipratropium [place] 0.5 mg 03/02/19 08:00 03/10/19 08:35 Atrovent Nebulized INHALATION 0.5 mg RT-QID DEANDRA Administration Metoprolol Tartrate 25 mg 03/10/19 08:30 03/10/19 09:37 Lopressor PO 25 mg BID DEANDRA Administration Miscellaneous Information 1 each 03/09/19 16:49 Communication To Pharmacy PO ONCE PRN See Comments Nitroglycerin 0.4 mg 03/01/19 16:04 Nitrostat SUBLINGUAL Q5M PRN Chest Pain Pantoprazole Sodium 40 mg 03/09/19 09:00 03/10/19 09:37 Protonix IVP 40 mg DAILY DEANDRA Administration Sodium Chloride 10 ml 03/05/19 21:00 03/10/19 09:38 Saline Flush IV 10 ml Q12HR DEANDRA Administration Objective - Vital Signs Vital signs: Vital Signs Temp 100.3 F H 03/10/19 04:00 Pulse 84 03/10/19 08:46 Resp 15 03/10/19 07:00 BP 106/79 03/10/19 03:45 Pulse Ox 97 03/10/19 07:00 Intake & Output 03/09/19 03/10/19 03/10/19 18:59 06:59 18:59 Intake Total 1341.778 628.312 79.992 Output Total 2295 975 50 Balance -953.222 -346.688 29.992 Weight 124.5 kg Intake: IV 530 180 20 Ampicillin-Sulbactam 3 gm 400 In Sodium Chloride 0.9% 100 ml @ 200 mls/hr IVPB Q6H DEANDRA Rx#:[id number] KVO 130 180 20 Intake, IV Titration 811.778 298.312 39.992 Amount Ampicillin-Sulbactam 3 gm 200 In Sodium Chloride 0.9% 100 ml @ 200 mls/hr IVPB Q6H DEANDRA Rx#:[id number] Norepinephrine 4 mg In 254.000 115.843 Sodium Chloride 0.9% 250 ml @ 0.05 MCG/KG/MIN 22. 479 mls/hr IV .[id number] DEANDRA Rx#:[id number] Propofol 1,000 mg In 257.778 182.469 39.992 Empty Bag 1 bag @ Titrate IV .Q0M DEANDRA Rx#: [id number] cefTRIAXone 2 gm In 100 Sodium Chloride 0.9% 50 ml @ 100 mls/hr IVPB Q24HR DEANDRA Rx#:[id number] Tube Feeding 120 20 Other 30 Output: Urine 2295 975 50 Other: Voiding Method Indwelling Catheter Indwelling Catheter ABP, PAP, CO, CI - Last Documented Arterial Blood Pressure 121/43 - Exam -GENERAL: The patient is intubated and sedated HEENT: Pupils are round and equally reacting to light. EOMI. No scleral icterus. No conjunctival pallor. Normocephalic, atraumatic. No pharyngeal erythema. No thyromegaly. CARDIOVASCULAR: S1 and S2 present. No murmurs, rubs, or gallops. PULMONARY: Chest is clear to auscultation, no wheezing or crackles. ABDOMEN: Soft, nontender, nondistended, normoactive bowel sounds. No palpable organomegaly. MUSCULOSKELETAL: No joint swelling or deformity. EXTREMITIES: No cyanosis, clubbing, or pedal edema. NEUROLOGICAL: Gross neurological examination did not reveal any focal deficits. SKIN: No rashes. no petechiae. - Labs CBC & Chem 7: 03/10/19 04:00 03/10/19 04:00 Labs: Abnormal Lab Results - Last 24 Hours (Table) 03/09/19 03/09/19 03/09/19 Range/Units 11:29 17:41 23:44 WBC (3.8-10.6) k/uL RBC (4.30-5.90) m/uL Hgb (13.0-17.5) gm/dL Hct (39.0-53.0) % Neutrophils # (1.3-7.7) k/uL ABG pO2 (83-108) mmHg ABG HCO3 (21-25) mmol/L ABG Total CO2 (19-24) mmol/L ABG O2 Saturation (94-97) % Sodium (137-145) mmol/L Chloride (98-107) mmol/L BUN (9-20) mg/dL Creatinine (0.66-1.25) mg/dL Glucose (74-99) mg/dL POC Glucose (mg/dL) 118 H 111 H 130 H (75-99) mg/dL 03/10/19 03/10/19 03/10/19 Range/Units 04:00 04:00 05:31 WBC 14.8 H (3.8-10.6) k/uL RBC 3.65 L (4.30-5.90) m/uL Hgb 10.5 L (13.0-17.5) gm/dL Hct 32.3 L (39.0-53.0) % Neutrophils # 11.8 H (1.3-7.7) k/uL ABG pO2 (83-108) mmHg ABG HCO3 (21-25) mmol/L ABG Total CO2 (19-24) mmol/L ABG O2 Saturation (94-97) % Sodium 146 H (137-145) mmol/L Chloride 109 H (98-107) mmol/L BUN 42 H (9-20) mg/dL Creatinine 1.70 H (0.66-1.25) mg/dL Glucose 141 H (74-99) mg/dL POC Glucose (mg/dL) 132 H (75-99) mg/dL 03/10/19 Range/Units 07:26 WBC (3.8-10.6) k/uL RBC (4.30-5.90) m/uL Hgb (13.0-17.5) gm/dL Hct (39.0-53.0) % Neutrophils # (1.3-7.7) k/uL ABG pO2 117 H (83-108) mmHg ABG HCO3 30 H (21-25) mmol/L ABG Total CO2 31 H (19-24) mmol/L ABG O2 Saturation 98.5 H (94-97) % Sodium (137-145) mmol/L Chloride (98-107) mmol/L BUN (9-20) mg/dL Creatinine (0.66-1.25) mg/dL Glucose (74-99) mg/dL POC Glucose (mg/dL) (75-99) mg/dL Microbiology - Last 24 Hours (Table) 03/04/19 18:31 Blood Culture Gram Stain - Final Blood Blood Culture - Final Enterococcus faecalis 03/08/19 08:46 Blood Culture Gram Stain - Preliminary Blood Blood Culture - Preliminary Group D Enterococcus 03/08/19 07:30 Blood Culture Gram Stain - Preliminary Blood Blood Culture - Preliminary Group D Enterococcus 03/06/19 09:55 Blood Culture Gram Stain - Final Blood Blood Culture - Final Enterococcus faecalis 03/06/19 10:10 Blood Culture Gram Stain - Final Blood Blood Culture - Final Enterococcus faecalis 03/06/19 02:42 Blood Culture Gram Stain - Final Blood Blood Culture - Final Enterococcus faecalis Assessment and Plan Assessment: Cardiogenic shock Acute on chronic systolic congestive heart failure with ejection fraction 20- 25%, on the top of history of severe ischemic cardiomyopathy. 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 Continue with antibiotics as per infectious disease recommendation, follow-up final culture results. Patient remains intubated and measures by critical care team. Patient is on Lasix. . Continue with process as per critical care team recommendations. Follow-up cardiology recommendations. Follow-up WBC and creatinine.Labs and medication were reviewed. Nephrology consult for renal disease. Continue same treatment. Continue with symptomatic treatment. Resume home medication. Monitor lytes and vitals. DVT and GI prophylaxis. Further recommendations of the clinical course of the patient DVT prophylaxis: Subcutaneous heparin GI Prophylaxis: Protonix Prognosis is extremely poor and guarded
--- NOTE | 2019-03-10 11:31 | PN ---
PROGRESS NOTE Mr. Tiwari is a gentleman with multiple comorbid conditions including ischemic cardiomyopathy, also had a biventricular ICD by Dr. Ho. He has had episodes of ventricular ectopy. Yesterday he had a transesophageal echo and there is a question of a vegetation attached to the aortic prosthetic valve. 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 I am recommending that we wean off the Levophed as much as possible, increase the Lopressor to 25 mg b.i.d. I will await further input from Infectious Disease. Patient may need reassessment of antibiotic coverage given the fact his cultures from yesterday are still growing Enterococcus. Prognosis remains poor for this patient. MMODL / IJN: [id number] /
[2019-03-10 11:38] LABS: Prothrombin Time 11.1 sec (9.0-12.0)
[2019-03-10] MEDS: NOREPINEPHRINE 4 MG in SODIUM CHLORIDE 0.9% 250 ML IV SCH (15:15)
--- NOTE | 2019-03-10 15:24 | P.PN ---
Subjective Progress Note Date: 03/10/19 Principal diagnosis: Acute hypoxic respiratory failure secondary to cardiogenic shock, and septic shock. Acute endocarditis. This is a 71-year-old male patient with known history of ischemic cardiomyopathy along with known history of coronary artery disease and previous aortic valve replacement, AVR, and previous coronary artery bypass surgery, who presented to the hospital because of chest pain and non-STEMI. The patient has had previous catheterizations with stenting done in the distal left main as well as the proximal circumflex. He has a chronically totally occluded RCA. As mentioned, the patient was admitted with chest pain or shortness of breath and acute non-S RAFAELA. The patient underwent another cardiac catheterization and the patient was found to have taken stent to the distal left mainstem to proximal circumflex, patent BELTRAN to LAD, chronic totally occluded RCA. Recommendations were mainly to maximize medical management. The patient was being treated for congestion heart failure. He was receiving Lasix drip and he was having ongoing orthopnea. He was taken yesterday to the [facility] and the patient was given biventricular pacing/AICD. Noted postop, the patient was extubated. He became short of breath and went into significant amount of respiratory distress and within 10 minutes she had to be reintubated. He was brought into the intensive care unit intubated on a mechanical ventilator. Initial blood gases showed a pH of 7.28 with a pCO2 of 51 and pO2 of 234. Necessary vent changes were done. The most recent blood gas showed a pH of 7.48 with a pCO2 of 28 and pO2 of 229. The morning vent settings include a tidal volume 400 with a rate of 18 and FiO2 of 40% with 5. The setting was adjusted based on the most recent blood gas. I n oted that the patient is also on pressors and overnight the patient has required norepinephrine infusion and currently is running at 0.1 mcg/kg per minute. The patient is also on Lasix drip at 10 mg an hour. He is producing urine output. However, the patient has developed an acute kidney injury. Creatinine was normal at the time of admission on 02/27/2019 and there has been progressive rise in the creatinine which is up to 2.6 at this point in time. He was he was developing fevers with a temperature 11.6 on 03/04/2019. The patient has blood culture sent a blood culture came back positive for enterococcus group D. The patient was on cefazolin. IV Zosyn was added by the primary care team. This morning, the patient is sedated with propofol is currently running at 50 mics. His, comfortable. He is producing urine output. Her net fluid balance is -642 mL for yesterday. His cardiac rhythm is paced. His white cell count is 19.4. He is obviously septic condition with a positive blood culture. UA the time of admission was negative. He has a Diaz catheter in place. Abdomen is soft. His umbilical hernia. Surgical wound site over the left biventricular pacemaker is dry clean and intact. No significant orotracheal secretions. Chest x-ray from today shows cardiomegaly and lower lobe consolidation as the patient is a left lower lobe consolidation of the right upper lobe! The echocardiogram at shown an ejection fraction of 20-25%. There is moderate concentric left adela tricular hypertrophy. There is severe global hypokinesis. No pericardial effusion. The peak gradient across the aortic valve was 35 mmHg. It is a normal functioning bioprosthetic valve. There is moderate mitral regurgitation. Mild pulmonary hypertension. on 03/07/2019 the patient remains sedated and intubated on mechanical ventilator. The patient is on propofol for sedation. The patient is also on a mechanical ventilator on assist control mode with a tidal volume of 000 and the rate of 18 with an FiO2 of 40% and PEEP of 5. The chest x-ray from today shows stable findings and there is left lower lobe consolidation/effusion. ET tube is in a good location. The left ear showed a pH of 7.44 with a pCO2 of 34 and pO2 of 131. Based on this, there is a component of respiratory alkalosis and I dropped a respiratory rate down to 14. The telephone was kept at 500 for now. I took this patient off the Lasix therapy yesterday as the patient's CVP was running low and the patient was also developing acute kidney injury. Today CVP is also low measuring as high as 4-5 millimeters of mercury. Based on that, the patient was started on oral Lasix set of IV Lasix for cardiology. He is p roducing adequate amount of urine output. Creatinine is also improving and is down to 2.1. The patient is afebrile. The patient was seen by infectious disease. Antibiotic adjustments were done and the patient was placed on a combination of Unasyn and gentamicin. No clear indication for endocarditis. The patient has 3 positive blood culture that was positive for E faecalis, in the patient was simplified back to Unasyn and gentamicin was discontinued as the patient was found to be having a Enterococcus faecalis resistant to gentamicin.. The patient is producing adequate amount of urine output. He is still on pressors and the present doses been weaned down to 0.07 micrograms per kilogram per minute of norepinephrine infusion. The patient will be started on enteral feeding for nutritional support. Cardiology is on the case. Cardiac rhythm remains paced. No significant electrolyte imbalance in the patient's white cell count is down to 10.5. 03/08/2019, the patient remains intubated on a mechanical ventilator. The patient remains hemodynamically unstable requiring pressors and the norepinephrine infusion is running at 0.08 mcg/kg per minute. He is also on Prinivil at 40 mics per KG. The patient a mechanical ventilator on assist control mode with a tidal volume of 500 and rate of 18 with an FiO2 of 40% and a PEEP of 5. Chest x-ray is unchanged compared to yesterday and there are some white pulmonary vessel congestion. The patient is producing 25 mL of urine output on an hourly basis. Net fluid balance is positive to 11 mL over the past 24 hours. He is currently on oral Lasix. He is also on norepinephrine infusion. He is on enteral feeding for nutritional support. He is receiving before for sedation. Note that all of the blood cultures came back positive for Enterococcus faecalis. The patient remains on IV Unasyn. Follow-up cultures were obtained to make sure there is no ongoing bacteremia. There is a high likely what that it there may be a component of infective endocarditis. The patient will need a LISSET to evaluate this further. His cardiac rhythm is paced. The fibrillator pocket is clean and intact at this point in time. As for his continued kidney injury, the patient's creatinine is improving and the creatinine is down to 1.72. The white cell count is also down to 10.5 and the patient is responding to IV Unasyn for now. Reevaluated today on 03/09/2019, patient remains on mechanical ventilation, he is still on norepinephrine at 0.05 mcg/kg/m, still on propofol at 50 mcg/kg/m. He is on mechanical ventilation, assist control rate of 18, FiO2 is 40%, PEEP of 5. Tidal volume is 500. Transesophageal echocardiogram is suspicious for vegetations involving the aortic bioprosthetic valve there was also evidence of thickened mitral valve leaflets with moderate mitral regurgitation. His LV function was noted to be impaired ejection fraction of 20%. ABG this morning showed a pO2 of 120 pCO2 of 42 pH of 7.42 11 lites are normal renal profile is abnormal with BUN of 42 creatinine of 1.75 WBC count is 12.3 hemoglobin is 10.2. Chest x-ray is suspicious for mild interstitial edema and small bilateral pleural effusions. There is also some retrocardiac atelectasis. Patient is sedated, on mechanical ventilation, I have no plans to wean the patient today since LISSET was scheduled to be done shortly after I evaluated the patient. Patient was reevaluated today on 03/10/2019, remains on mechanical ventilation, his ventilator settings are assist control rate of 14 FiO2 is 40% PEEP is 5 tidal volume is 500. Patient is on Cardizem drip as per cardiology 5 mg per hour, his also on metoprolol, and he is on norepinephrine at 0.05 mcg/kg/m. Propofol is 25 mcg/kg/m. Chest x-ray showed cardiomegaly and prominent pulmonary vasculature with minimal basilar atelectasis. ABG showed a pO2 of 117 pCO2 of 43 pH of 7.45. WBC count is 14.8 hemoglobin is 10.5. Electrolytes are relatively normal. Renal profile showed a BUN of 42 creatinine of 1.70. Patient remains sedated, however I plan to hold his sedation today, and hopefully assess mental status and decide whether we can proceed with any further weaning trials. Family is at bedside and they were updated on his condition and on the fact that he has endocarditis. Antibiotics were addressed by Dr. Nguyễn, patient is now on Unasyn. He also remains on Rocephin. Objective - Vital Signs Vital signs: Vital Signs Temp 97.8 F 03/10/19 10:00 Pulse 85 03/10/19 14:00 Resp 88 H 03/10/19 14:00 BP 106/79 03/10/19 03:45 Pulse Ox 95 03/10/19 14:00 Intake & Output 03/09/19 03/10/19 03/10/19 18:59 06:59 18:59 Intake Total 1341.778 628.312 714.157 Output Total 2295 975 870 Balance -953.222 -346.688 -155.843 Weight 124.5 kg 124.5 kg Intake: IV 530 180 250 Ampicillin-Sulbactam 3 gm 400 100 In Sodium Chloride 0.9% 100 ml @ 200 mls/hr IVPB Q6H DEANDRA Rx#:[id number] KVO 130 180 150 Intake, IV Titration 811.778 298.312 288.157 Amount Ampicillin-Sulbactam 3 gm 200 In Sodium Chloride 0.9% 100 ml @ 200 mls/hr IVPB Q6H DEANDRA Rx#:[id number] Norepinephrine 4 mg In 254.000 115.843 138.157 Sodium Chloride 0.9% 250 ml @ 0.05 MCG/KG/MIN 22. 479 mls/hr IV .[id number] DEANDRA Rx#:[id number] Propofol 1,000 mg In 257.778 182.469 100.000 Empty Bag 1 bag @ Titrate IV .Q0M DEANDRA Rx#: [id number] cefTRIAXone 2 gm In 100 50 Sodium Chloride 0.9% 50 ml @ 100 mls/hr IVPB Q24HR DEANDRA Rx#:[id number] Tube Feeding 120 176 Other 30 Output: Urine 2295 975 870 Other: Voiding Method Indwelling Catheter Indwelling Catheter Indwelling Catheter ABP, PAP, CO, CI - Last Documented Arterial Blood Pressure 102/50 - Exam Physical Exam: Revealed a 73-year-old white male, sedated, on mechanical ventilation, on propofol drip. In no distress. Head: Atraumatic, normocephalic. Endotracheal tube is intact and orogastric tube is intact. HEENT:[Neck is supple.] [No neck masses.] [No thyromegaly.] [No JVD.] Moist mucous membranes Chest: Crackles at the bases noted bilaterally, symmetrical chest expansion.] Cardiac Exam: [Normal S1 and S2, no S3 gallop, 2/6 systolic murmur thought the precordium] Abdomen: [Soft, nontender, no megaly, no rebound, no guarding, normal bowel sounds.] Extremities: [No clubbing, no edema, no cyanosis.] Neurological Exam: Cannot be assessed, patient is fully sedated. Psychiatric: Cannot be assessed Lymphatics: No lymphadenopathy. Skin: No rashes - Labs CBC & Chem 7: 03/10/19 04:00 03/10/19 04:00 Labs: Abnormal Lab Results - Last 24 Hours (Table) 03/09/19 03/09/19 03/10/19 Range/Units 17:41 23:44 04:00 WBC (3.8-10.6) k/uL RBC (4.30-5.90) m/uL Hgb (13.0-17.5) gm/dL Hct (39.0-53.0) % Neutrophils # (1.3-7.7) k/uL ABG pO2 (83-108) mmHg ABG HCO3 (21-25) mmol/L ABG Total CO2 (19-24) mmol/L ABG O2 Saturation (94-97) % Sodium 146 H (137-145) mmol/L Chloride 109 H (98-107) mmol/L BUN 42 H (9-20) mg/dL Creatinine 1.70 H (0.66-1.25) mg/dL Glucose 141 H (74-99) mg/dL POC Glucose (mg/dL) 111 H 130 H (75-99) mg/dL 03/10/19 03/10/19 03/10/19 Range/Units 04:00 05:31 07:26 WBC 14.8 H (3.8-10.6) k/uL RBC 3.65 L (4.30-5.90) m/uL Hgb 10.5 L (13.0-17.5) gm/dL Hct 32.3 L (39.0-53.0) % Neutrophils # 11.8 H (1.3-7.7) k/uL ABG pO2 117 H (83-108) mmHg ABG HCO3 30 H (21-25) mmol/L ABG Total CO2 31 H (19-24) mmol/L ABG O2 Saturation 98.5 H (94-97) % Sodium (137-145) mmol/L Chloride (98-107) mmol/L BUN (9-20) mg/dL Creatinine (0.66-1.25) mg/dL Glucose (74-99) mg/dL POC Glucose (mg/dL) 132 H (75-99) mg/dL Microbiology - Last 24 Hours (Table) 03/09/19 09:44 Blood Culture - Preliminary Blood No Growth after 24 hours 03/04/19 18:31 Blood Culture Gram Stain - Final Blood Blood Culture - Final Enterococcus faecalis 03/08/19 08:46 Blood Culture Gram Stain - Preliminary Blood Blood Culture - Preliminary Group D Enterococcus 03/08/19 07:30 Blood Culture Gram Stain - Preliminary Blood Blood Culture - Preliminary Group D Enterococcus Assessment and Plan Assessment: Impression: 1 acute hypoxic respiratory failure secondary to cardiogenic shock and septic shock. 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 3 severe LV dysfunction and cardiomyopathy, ischemic in nature, ejection fraction of 20-25% post-insertion of AICD. 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 6 septic shock secondary to enterococcal infection 7 acute kidney injury secondary to sepsis, ATN, and possibly contrast nephropathy 8 history of underlying COPD, hypertension, hyperlipidemia, obesity, and generalized anxiety disorder. Recommendation: Continue ventilatory support Continue nutritional support Continue antibiotics and/Unasyn and Rocephin Continue GI and DVT prophylaxis Continued daily trials of sedation interruption and possibly weaning trials. Updated family on his condition, and his prognosis, will ask thoracic surgery to evaluate also. Prognosis remains poor and guarded, critical care time is 32 minutes. Time with Patient: Greater than 30
[2019-03-10 16:50] LABS: Glucose,Whole Blood 136 mg/dL (75-99)
--- NOTE | 2019-03-10 17:46 | P.GSCN ---
History of Present Illness Consult date: 03/10/19 Reason for Consult: Endocarditis bioprosthetic aortic valve. Requesting physician: Rony Nuñez History of present illness: This is a 73-year-old gentleman who is followed by Dr Charlie Monaco at the [facility] on an outpatient basis. He is a past medical history for symptomatic multivessel coronary artery disease, status post three-vessel coronary artery bypass grafting surgery in January 2016, aortic valve stenosis status post aortic valve replacement using a #23 mm magna ease pericardial valve in January 2016, ischemic cardiomyopathy with systolic dysfunction with an ejection fraction of 20-25%, history of bradycardia with hypotension, remote history of tobacco abuse, chronic obstructive pulmonary disease, hypertension, hyperlipidemia, gout, generalized anxiety disorder, remote history of nicotine dependence, posttraumatic stress disorder and history of vancomycin resistant enterococcus. The patient is currently in the intensive care unit intubated with mechanical ventilator support and sedated on propofol drip. Due to the patient being intubated with mechanical ventilator support his history is unobtainable from the patient and there is no family present at his bedside so his history has been obtained from his chart. The patient presented to the emergency department here at [facility] on 03/01/2019 with complaints of shortness of breath which was progressive over a week period. The patient was also experiencing some chest discomfort in the way of chest tightness off and on as well. According to his history the patient was supposed to have an elective pacemaker/AICD placed on 02/24/2019 which was postponed until March 06. The pacemaker/ AICD was being placed for tachycardia bradycardia. In the emergency Department the patient had a chest x-ray completed which showed no active cardiopulmonary disease, and borderline cardiomegaly. A 12-lead EKG was also completed which showed him to have sinus tachycardia with occasional pre-mature ventricular complexes with a heart rate of 110 bpm. His initial lab results showed a WBC count 13.0, Hgb 12.9, BUN 21, creatinine 0.92, an elevated troponin of 2.370, and a BNP level of 14,300. Subsequently the patient was admitted for further workup and evaluation. On 03/02/2019 a 2-D echocardiogram was completed which showed an overall left ventricular systolic function to be severely impaired with an ejection fraction between 20 and 25%, the patient was in atrial fibrillation, severe global hypokinesia of the left ventricle, a peak/mean gradient across the aortic valve of 35.51 mmHg and mean gradient of 20.66 mmHg, moderate mitral valve regurgitation, mild truss cuspid valve regurgitation, trace pulmonic regurgitation and a normally functioning bioprosthetic aortic valve. Subsequently on 03/03/2019 the patient underwent a selective right and left coronary angiogram which demonstrated a chronically occluded right coronary artery in the midportion, a stent to the left main coronary artery which was p atent, the proximal left circumflex stent to be patent, and the proximal left anterior descending coronary artery with a 70% stenosis. The heart catheterization also demonstrated a patent BELTRAN to the LAD. On 03/04/2019 the patient underwent a placement of a biventricular pacing/ICD performed by Dr. Ho. Post biventricular pacing/AICD the patient was extubated for a short time, the patient went into significant respiratory distress within 10 minutes and he was reintubated with mechanical ventilator support and subsequently transferred to the intensive care unit for further monitoring and hemodynamic management. Subsequently on 03/05/2019 the patient's blood cultures showed positive for Enterococcus faecilis. Dr. Nguyễn from infectious disease was consulted and the patient was placed on IV antibiotics. Yesterday 03/09/2019 the patient underwent a transesophageal echocardiogram due to the positive blood cultures for suspicious for endocarditis. The transesophageal echocardiogram demonstrated an echo density attached to the LVOT side of the aortic bioprosthetic valve which was quite concerning for vegetation and endocarditis,moderate tricuspid valve regurgitation, thickened mitral valve leaflets with moderate mitral valve regurgitation, impaired left ventricular systolic function with an ejection fraction around 20%, moderate biatrial enlargement and no evidence of pericardial effusion. The patient has also been febrile with a T-max temperature of 100.3F in the last 24 hours. Due to the patient's transesophageal echocardiogram, concerns for vegetation and endocardi tis on his LVOT side of his aortic bioprosthetic valve a consult was placed to Dr. Cande Vora from cardiothoracic surgery. Review of Systems Unable to to obtain as the patient is intubated with mechanical ventilator support and sedated on propofol drip. Past Medical History Past Medical History: Asthma, Coronary Artery Disease (CAD), Chest Pain / Angina, Heart Failure, COPD, GERD/Reflux, Hyperlipidemia, Hypertension, Osteoarthritis (OA) Additional Past Medical History / Comment(s): Artery disease, previous ID, previous history of coronary artery bypass surgery, previous history aortic valve replacement with a bioprosthetic valve, CHF with ejection fraction of 20- 25%, obesity with a BMI of 43, COPD, hypertension, hyperlipidemia, umbilical hernia, previous history of small bowel obstruction with an incarcerated hernia requiring surgical intervention, history of PTSD, generalized anxiety disorder, gout, previous history of VRE. History of Any Multi-Drug Resistant Organisms: VRE Year Discovered:: 2007 MDRO Source:: SURGICAL INCISION Past Surgical History: Appendectomy, Cardiac Valve Replacement, Cholecystectomy, Coronary Bypass/CABG, Heart Catheterization, Heart Catheterization With Stent, Hernia Repair Additional Past Surgical History / Comment(s): 01/2016 aortic valve replacement with triple bypass, 2017 PCI with stents, R upper quadrant ventral incisional hernia repair, R ankle surgery with rods/pins, exploratory laparotomy while in [place]-pt doesn't recall what was found, colonoscopy, bilateral cataract removals/lens implants. Past Anesthesia/Blood Transfusion Reactions: No Reported Reaction Date of Last Stent Placement:: 03/22/17 Past Psychological History: Anxiety, PTSD Smoking Status: Former smoker Past Alcohol Use History: None Reported Past Drug Use History: None Reported - Past Family History Father Family Medical History: Myocardial Infarction (ID) Additional Family Medical History / Comment(s): CABG. Father had a ID at the age of 72 yrs. Father at the age of 85 yrs. Mother Family Medical History: Myocardial Infarction (ID) Additional Family Medical History / Comment(s): CABG. Mother had a ID in her 70s. She lived to be 88yrs old. Medications and Allergies Home Medications Medication Instructions Recorded Confirmed Type Albuterol Sulfate [Proair Hfa] 2 puff INHALATION RT-QID PRN 01/27/16 03/01/19 History Budesonide-Formot 160-4.5 Mcg 2 puff INHALATION RT-BID PRN 01/27/16 03/01/19 H istory [Symbicort 160-4.5 Mcg Inhaler] Tiotropium [place] [Spiriva] 1 puff INHALATION RT-DAILY 01/27/16 03/01/19 History Metoprolol Tartrate [Lopressor] 25 mg PO BID #30 tab 02/03/16 03/01/19 Rx Allopurinol [Zyloprim] 100 mg PO HS PRN 01/04/17 03/01/19 History Lisinopril [Zestril] 5 mg PO HS 01/04/17 03/01/19 History Albuterol Nebulized [Ventolin 2.5 mg INHALATION Q4H PRN 03/19/17 03/01/19 History Nebulized] Omeprazole [PriLOSEC] 40 mg PO AC-BRKFST 03/19/17 03/01/19 History Pravastatin Sodium [Pravachol] 10 mg PO HS 03/19/17 03/01/19 History Sildenafil Citrate [Viagra] 100 mg PO DIRECTED PRN 03/19/17 03/01/19 History Aspirin EC [Ecotrin Low Dose] 81 mg PO DAILY 08/29/18 03/01/19 History Spironolactone [Aldactone] 25 mg PO DAILY #30 tab 09/01/18 03/01/19 Rx Furosemide [Lasix] 40 mg PO BID 09/18/18 03/01/19 History Clopidogrel [Plavix] 75 mg PO HS 09/19/18 03/01/19 History Allergies Allergy/AdvReac Type Severity Reaction Status Date / Time levofloxacin [From Levaquin] AdvReac Unknown Verified 03/01/19 15:17 Surgical - Exam Vital Signs Temp Pulse Resp BP Pulse Ox 99.0 F 110 H 20 126/77 97 03/01/19 14:45 03/01/19 14:45 03/01/19 14:45 03/01/19 14:45 03/01/19 14:45 - General Sedated, intubated on mechanical ventilator support. well developed, well nourished, no distress, obese - Eyes PERRL, normal ocular movement - ENT normal pinna, normal nares, normal mucosa, no congestion - Neck Neck is supple, no lymphadenopathy. no masses, no bruits, trachea midline, no venous distension - Respiratory Lung sounds diminished to his bilateral bases. Essentially clear to his bilateral upper lobes. Intubated with mechanical ventilator support. Respirations are symmetrical and nonlabored with mechanical ventilator support. - Cardiovascular Irregular rhythm and controlled rate. S1 and S2 present, negative for S3 or gallop, positive systolic murmur 2/6. +2 edema to his bilateral lower ext remities. - Abdomen Abdomen is soft, nontender and nondistended. Active bowel sounds present in all 4 abdominal quadrants. OG tube in place with 2 feeding infusing. No or ganomegaly appreciated. - Genitourinary Deferred - Rectum Deferred - Integumentary no rash, no growths, no abnormal pigmentation - Neurologic Sedated, intubated on mechanical ventilator support. - Musculoskeletal Sedated, intubated on mechanical ventilator support. - Psychiatric Sedated, intubated on mechanical ventilator support. Results - Labs 03/10/19 04:00 03/10/19 04:00 Abnormal Lab Results - Last 24 Hours (Table) 03/09/19 03/09/19 03/10/19 Range/Units 17:41 23:44 04:00 WBC (3.8-10.6) k/uL RBC (4.30-5.90) m/uL Hgb (13.0-17.5) gm/dL Hct (39.0-53.0) % Neutrophils # (1.3-7.7) k/uL ABG pO2 (83-108) mmHg ABG HCO3 (21-25) mmol/L ABG Total CO2 (19-24) mmol/L ABG O2 Saturation (94-97) % Sodium 146 H (137-145) mmol/L Chloride 109 H (98-107) mmol/L BUN 42 H (9-20) mg/dL Creatinine 1.70 H (0.66-1.25) mg/dL Glucose 141 H (74-99) mg/dL POC Glucose (mg/dL) 111 H 130 H (75-99) mg/dL 03/10/19 03/10/19 03/10/19 Range/Units 04:00 05:31 07:26 WBC 14.8 H (3.8-10.6) k/uL RBC 3.65 L (4.30-5.90) m/uL Hgb 10.5 L (13.0-17.5) gm/dL Hct 32.3 L (39.0-53.0) % Neutrophils # 11.8 H (1.3-7.7) k/uL ABG pO2 117 H (83-108) mmHg ABG HCO3 30 H (21-25) mmol/L ABG Total CO2 31 H (19-24) mmol/L ABG O2 Saturation 98.5 H (94-97) % Sodium (137-145) mmol/L Chloride (98-107) mmol/L BUN (9-20) mg/dL Creatinine (0.66-1.25) mg/dL Glucose (74-99) mg/dL POC Glucose (mg/dL) 132 H (75-99) mg/dL 03/10/19 Range/Units 16:46 WBC (3.8-10.6) k/uL RBC (4.30-5.90) m/uL Hgb (13.0-17.5) gm/dL Hct (39.0-53.0) % Neutrophils # (1.3-7.7) k/uL ABG pO2 (83-108) mmHg ABG HCO3 (21-25) mmol/L ABG Total CO2 (19-24) mmol/L ABG O2 Saturation (94-97) % Sodium (137-145) mmol/L Chloride (98-107) mmol/L BUN (9-20) mg/dL Creatinine (0.66-1.25) mg/dL Glucose (74-99) mg/dL POC Glucose (mg/dL) 136 H (75-99) mg/dL Microbiology - Last 24 Hours (Table) 03/09/19 09:44 Blood Culture - Preliminary Blood No Growth after 24 hours 03/04/19 18:31 Blood Culture Gram Stain - Final Blood Blood Culture - Final Enterococcus faecalis 03/08/19 08:46 Blood Culture Gram Stain - Preliminary Blood Blood Culture - Preliminary Group D Enterococcus 03/08/19 07:30 Blood Culture Gram Stain - Preliminary Blood Blood Culture - Preliminary Group D Enterococcus Diabetes panel 03/10/19 Range/Units 04:00 Sodium 146 H (137-145) mmol/L Potassium 3.9 (3.5-5.1) mmol/L Chloride 109 H (98-107) mmol/L Carbon Dioxide 28 (22-30) mmol/L BUN 42 H (9-20) mg/dL Creatinine 1.70 H (0.66-1.25) mg/dL Glucose 141 H (74-99) mg/dL Calcium 8.7 (8.4-10.2) mg/dL Calcium panel 03/10/19 Range/Units 04:00 Calcium 8.7 (8.4-10.2) mg/dL Pituitary panel 03/10/19 Range/Units 04:00 Sodium 146 H (137-145) mmol/L Potassium 3.9 (3.5-5.1) mmol/L Chloride 109 H (98-107) mmol/L Carbon Dioxide 28 (22-30) mmol/L BUN 42 H (9-20) mg/dL Creatinine 1.70 H (0.66-1.25) mg/dL Glucose 141 H (74-99) mg/dL Calcium 8.7 (8.4-10.2) mg/dL Adrenal panel 03/10/19 Range/Units 04:00 Sodium 146 H (137-145) mmol/L Potassium 3.9 (3.5-5.1) mmol/L Chloride 109 H (98-107) mmol/L Carbon Dioxide 28 (22-30) mmol/L BUN 42 H (9-20) mg/dL Creatinine 1.70 H (0.66-1.25) mg/dL Glucose 141 H (74-99) mg/dL Calcium 8.7 (8.4-10.2) mg/dL - Imaging Additional studies: LISSET results and film were reviewed by Dr. Cande Vora. Assessment and Plan Assessment: 1. 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 Acute hypoxic respiratory failure secondary to cardiogenic shock and septic shock 3. Severe left ventricular systolic dysfunction, cardiomyopathy with an ejection fraction of 20-25% post-insertion of biventricular pacing/AICD 4. History of coronary artery disease status post CABG in 2016 5. History of aortic valve stenosis status post bioprosthetic aortic valve replacement in 2016 6. Acute kidney injury secondary to sepsis, ATN 7. History of COPD 8. History of hypertension 9. Hyperlipidemia 10. Obesity 11. Remote history of tobacco abuse 12. Generalized anxiety disorder 13. Post traumatic stress disorder 14. History of vancomycin resistant enterococcus Plan: The patient was seen and examined at his bedside in the intensive care unit. His chart and diagnostics were reviewed. He was seen and examined by Dr. Cande Vora from cardiothoracic surgery. Recommendations are to optimize with medical management and antibiotic therapy at this time. No surgical intervention is warranted at this time. Antibiotic management per infectious disease recommendations. Medical management and other comorbidities per primary care service and cardiology. Bronchodilator and mechanical ventilator management per pulmonary medicine. Continue GI and DVT prophylaxis. More recommendations follow based on patient's clinical course. Thank you Dr. Nuñez for this consult and we will look forward to working in the care of your patient. Time with Patient: Greater than 30
--- NOTE | 2019-03-10 18:34 | PN ---
PROGRESS NOTE Patient is seen for followup for acute kidney injury, mainly associated with hypotension, hypoperfusion and sepsis. Renal function has been fairly stable, serum creatinine staying at about 1.7 mg/dL for the last 3 days. Patient has had good urine output at about 75 to 100 mL/hour. He is maintained on IV push Lasix 40 mg q.12 hours. Patient remains on the vent. His sedation is currently being decreased. FiO2 is at 40%. On examination this morning, blood pressure was 112/55, heart rate of 88 per minute. Patient is afebrile. EXAMINATION OF THE HEART: S1 and S2. EXAMINATION OF LUNGS: Bilateral breath sounds are heard. Examination of lower extremities shows edema 1+ bilaterally. POCKET MAKER exam cannot be performed. Labs show hemoglobin 10.5, sodium 146, potassium 3.9, chloride 109, BUN 42, serum creatinine 1.7. ASSESSMENT: 1. Acute kidney injury, acute tubular necrosis, currently nonoliguric with improved renal function. Continue with the IV Lasix. 2. Volume overload. Continue to diurese patient. 3. Cardiac dysrhythmia, status post pacemaker, with episodes of ventricular ectopy. Patient was on Cardizem drip, which is now discontinued. 4. Sepsis from endocarditis with group D enterococcus, being followed by Infectious Disease and maintained on Rocephin and Unasyn. 5. Vent-dependent respiratory failure. 6. Status post AICD placement. 7. Mild hypernatremia secondary to free water deficit. PLAN: Add free water down the feeding tube. Repeat labs in a.m. Continue to avoid nephrotoxic agents. Continue with IV Lasix. MMODL / IJN: [id number] /
[2019-03-10] MEDS: HEPARIN SODIUM,PORCINE 5,000 UNIT/ML 1 ML VIAL SQ SCH (20:53)
[2019-03-10] MEDS: CLOPIDOGREL 75 MG TAB PO SCH (20:53)
--- NOTE | 2019-03-10 22:47 | P.PN ---
Subjective Progress Note Date: 03/10/19 This is a 73-year-old male with known history of ischemic cardiomyopathy along with known history of coronary artery disease and previous aortic valve replacement, AVR, and previous coronary artery bypass surgery. He presented on March 01 because of chest pain and found to have non-STEMI. He underwent cardiac catheterization with Dr. Juarez on 03/03 and the patient was found to have patent stent to the distal left mainstem to proximal circumflex, patent BELTRAN to LAD, chronic totally occluded RCA. Recommendations were mainly to maximize medical management. Patient was apparently having runs of V. tach and a consult was added for Dr. Ho. Patient subsequently underwent a biventricular ICD implantation on March 05. Patient was intubated prior to the procedure as apparently he is unable to lay flat for this. He received 700 mL of fluid during procedure. He was extubated last evening for only 3 minutes and was re- intubated. He was given Lasix 40 mg IV push followed by Lasix drip at 10 mg per hour. The Lasix to was discontinued this morning. Patient remains intubated, on sedation and on levo fed. His chest x-ray this morning reveals a right upper lobe pneumonia and probable heart failure. Patient has been running fevers up to 101.6 on evening of 925. White count 20.6, renal function is worsening with a BUN 45 and creatinine 2.6. Urinalysis was clear with nitrate and l eukoesterase negative. Urine output has been on the lower side running about 50 mL per hour or less. Blood culture from 03/04 is group D enterococcus and thus this consult was requested. 03/09/2019 the patient had evidence of isolated enterococcal bacteremia. The case was discussed with cardiology and a LISSET has been performed today which is verified evidence of a vegetation on the bioprosthetic aortic valve. There is no evidence of any ring abscess or of extensive valvular disease. The patient has shown some improvement in that his fever is improved and his leukocytosis is improving. 03/10/2019 patient remains intubated sedated and mechanically ventilated. His oxygen requirements have decreased in with increased dose of beta russell treatment started as some further improvement of his rate and dysrhythmia. He has been seen by cardiovascular surgeon. Objective - Vital Signs Vital signs: Vital Signs Temp 99.6 F 03/10/19 20:00 Pulse 97 03/10/19 22:00 Resp 17 03/10/19 22:00 BP 112/88 03/10/19 22:00 Pulse Ox 96 03/10/19 22:00 Intake & Output 03/10/19 03/10/19 03/11/19 06:59 18:59 06:59 Intake Total 140.896 6643.157 392.941 Output Total 975 1245 200 Balance -346.688 -34.843 192.941 Weight 124.5 kg 124.5 kg Intake: IV 180 330 160 Ampicillin-Sulbactam 3 gm 100 100 In Sodium Chloride 0.9% 100 ml @ 200 mls/hr IVPB Q6H DEANDRA Rx#:[id number] KVO 180 230 60 Intake, IV Titration 298.312 388.157 76.941 Amount Norepinephrine 4 mg In 115.843 138.157 Sodium Chloride 0.9% 250 ml @ 0.05 MCG/KG/MIN 22. 479 mls/hr IV .[id number] DEANDRA Rx#:[id number] Propofol 1,000 mg In 182.469 200.000 76.941 Empty Bag 1 bag @ Titrate IV .Q0M DEANDRA Rx#: [id number] cefTRIAXone 2 gm In 50 Sodium Chloride 0.9% 50 ml @ 100 mls/hr IVPB Q24HR DEANDRA Rx#:[id number] Tube Feeding 120 492 156 Other 30 Output: Urine 975 1245 200 Other: Voiding Method Indwelling Catheter Indwelling Catheter Indwelling Catheter ABP, PAP, CO, CI - Last Documented Arterial Blood Pressure 113/59 - Exam Gen: This is a 73-year-old male. He is on sedation, an ICU bed, intubated and on mechanical ventilation. Patient opens eyes to verbal stimuli and touch. HEENT: Head is atraumatic, normocephalic. Pupils equal, round. Sclerae is anicteric. Conjunctiva pink. Oral mucous membranes are moist. Appears patient is edentulous. ET and gastric tube are in place orally. NECK: Supple. No JVD. No lymphadenopathy. No thyromegaly. LUNGS: Diminished bilaterally. No wheezes or rhonchi. No intercostal retractions. HEART: Regular rate and rhythm. No murmur. There is a dressing over the AICD, left upper chest wall, 2 small areas of dried blood. No significant edema around the area. ABDOMEN: Soft. Bowel sounds are present. No masses. No tenderness. No redness under her abdominal fold. Diaz catheter draining clear dmitry urine. EXTREMITIES: Trace bilateral pedal edema. No wounds, no cellulitis noted. Dorsalis pedis 1+ bilaterally. NEUROLOGICAL: Patient is sedated. - Labs CBC & Chem 7: 03/10/19 04:00 03/10/19 04:00 Labs: Abnormal Lab Results - Last 24 Hours (Table) 03/09/19 03/10/19 03/10/19 Range/Units 23:44 04:00 04:00 WBC 14.8 H (3.8-10.6) k/uL RBC 3.65 L (4.30-5.90) m/uL Hgb 10.5 L (13.0-17.5) gm/dL Hct 32.3 L (39.0-53.0) % Neutrophils # 11.8 H (1.3-7.7) k/uL ABG pO2 (83-108) mmHg ABG HCO3 (21-25) mmol/L ABG Total CO2 (19-24) mmol/L ABG O2 Saturation (94-97) % Sodium 146 H (137-145) mmol/L Chloride 109 H (98-107) mmol/L BUN 42 H (9-20) mg/dL Creatinine 1.70 H (0.66-1.25) mg/dL Glucose 141 H (74-99) mg/dL POC Glucose (mg/dL) 130 H (75-99) mg/dL 03/10/19 03/10/19 03/10/19 Range/Units 05:31 07:26 16:46 WBC (3.8-10.6) k/uL RBC (4.30-5.90) m/uL Hgb (13.0-17.5) gm/dL Hct (39.0-53.0) % Neutrophils # (1.3-7.7) k/uL ABG pO2 117 H (83-108) mmHg ABG HCO3 30 H (21-25) mmol/L ABG Total CO2 31 H (19-24) mmol/L ABG O2 Saturation 98.5 H (94-97) % Sodium (137-145) mmol/L Chloride (98-107) mmol/L BUN (9-20) mg/dL Creatinine (0.66-1.25) mg/dL Glucose (74-99) mg/dL POC Glucose (mg/dL) 132 H 136 H (75-99) mg/dL Microbiology - Last 24 Hours (Table) 03/09/19 09:44 Blood Culture - Preliminary Blood No Growth after 24 hours 03/04/19 18:31 Blood Culture Gram Stain - Final Blood Blood Culture - Final Enterococcus faecalis 03/08/19 08:46 Blood Culture Gram Stain - Preliminary Blood Blood Culture - Preliminary Group D Enterococcus 03/08/19 07:30 Blood Culture Gram Stain - Preliminary Blood Blood Culture - Preliminary Group D Enterococcus Laboratory Results WBC 14.8 k/uL (3.8-10.6) H 03/10/19 04:00 RBC 3.65 m/uL (4.30-5.90) L 03/10/19 04:00 Hgb 10.5 gm/dL (13.0-17.5) L 03/10/19 04:00 Hct 32.3 % (39.0-53.0) L 03/10/19 04:00 MCV 88.5 fL (80.0-100.0) 03/10/19 04:00 MCH 28.6 pg (25.0-35.0) 03/10/19 04:00 MCHC 32.4 g/dL (31.0-37.0) 03/10/19 04:00 RDW 14.2 % (11.5-15.5) 03/10/19 04:00 Plt Count 223 k/uL (150-450) 03/10/19 04:00 Neutrophils % 79 % 03/10/19 04:00 Lymphocytes % 8 % 03/10/19 04:00 Monocytes % 6 % 03/10/19 04:00 Eosinophils % 5 % 03/10/19 04:00 Basophils % 1 % 03/10/19 04:00 Neutrophils # 11.8 k/uL (1.3-7.7) H 03/10/19 04:00 Lymphocytes # 1.1 k/uL (1.0-4.8) 03/10/19 04:00 Monocytes # 0.9 k/uL (0-1.0) 03/10/19 04:00 Eosinophils # 0.7 k/uL (0-0.7) 03/10/19 04:00 Basophils # 0.1 k/uL (0-0.2) 03/10/19 04:00 Hypochromasia Moderate 03/10/19 04:00 Anisocytosis Slight 03/01/19 15:07 PT 11.1 sec (9.0-12.0) 03/10/19 10:35 INR 1.0 (<1.2) 03/10/19 10:35 APTT 53.7 sec (22.0-30.0) H 03/02/19 21:57 Sample Site cara 03/10/19 07:26 ABG pH 7.45 (7.35-7.45) 03/10/19 07:26 ABG pCO2 43 mmHg (35-45) 03/10/19 07:26 ABG pO2 117 mmHg (83-108) H 03/10/19 07:26 ABG HCO3 30 mmol/L (21-25) H 03/10/19 07:26 ABG Total CO2 31 mmol/L (19-24) H 03/10/19 07:26 ABG O2 Saturation 98.5 % (94-97) H 03/10/19 07:26 ABG Base Excess 5.9 mmol/L 03/10/19 07:26 Manuel Test Yes 03/10/19 07:26 FiO2 40 % 03/10/19 07:26 Sodium 146 mmol/L (137-145) H 03/10/19 04:00 Potassium 3.9 mmol/L (3.5-5.1) 03/10/19 04:00 Chloride 109 mmol/L (98-107) H 03/10/19 04:00 Carbon Dioxide 28 mmol/L (22-30) 03/10/19 04:00 Anion Gap 9 mmol/L 03/10/19 04:00 BUN 42 mg/dL (9-20) H 03/10/19 04:00 Creatinine 1.70 mg/dL (0.66-1.25) H 03/10/19 04:00 Est GFR (CKD-EPI)AfAm 46 (>60 ml/min/1.73 sqM) 03/10/19 04:00 Est GFR (CKD-EPI)NonAf 40 (>60 ml/min/1.73 sqM) 03/10/19 04:00 Glucose 141 mg/dL (74-99) H 03/10/19 04:00 POC Glucose (mg/dL) 136 mg/dL (75-99) H 03/10/19 16:46 POC Glu Band [place] ID Miranda Bond 03/10/19 16:46 Plasma Lactic Acid [place] 1.2 mmol/L (0.7-2.0) 03/06/19 10:10 Calcium 8.7 mg/dL (8.4-10.2) 03/10/19 04:00 Phosphorus 3.8 mg/dL (2.5-4.5) 03/09/19 04:30 Magnesium 2.3 mg/dL (1.6-2.3) 03/09/19 04:30 Total Bilirubin 0.9 mg/dL (0.2-1.3) 03/01/19 15:07 AST 55 U/L (17-59) 03/01/19 15:07 ALT 60 U/L (21-72) 03/01/19 15:07 Alkaline Phosphatase 154 U/L (38-126) H 03/01/19 15:07 Troponin I 1.080 ng/mL (0.000-0.034) H* 03/02/19 04:09 NT-Pro-B Natriuret Pep 56167 pg/mL 03/01/19 15:07 Total Protein 6.8 g/dL (6.3-8.2) 03/01/19 15:07 Albumin 3.4 g/dL (3.5-5.0) L 03/01/19 15:07 Triglycerides 105 mg/dL (<150) 03/02/19 04:09 Cholesterol 188 mg/dL (<200) 03/02/19 04:09 LDL Cholesterol, Calc 148 mg/dL (0-99) H 03/02/19 04:09 HDL Cholesterol 19 mg/dL (40-60) L 03/02/19 04:09 TSH 3.570 mIU/L (0.465-4.680) 03/04/19 02:17 Urine Color Yellow 03/04/19 23:09 Urine Appearance Clear (Clear) 03/04/19 23:09 Urine pH 5.0 (5.0-8.0) 03/04/19 23:09 Ur Specific [place] 1.013 (1.001-1.035) 03/04/19 23:09 Urine Protein Trace (Negative) H 03/04/19 23:09 Urine Glucose (UA) Negative (Negative) 03/04/19 23:09 Urine Ketones Negative (Negative) 03/04/19 23:09 Urine Blood Negative (Negative) 03/04/19 23:09 Urine Nitrite Negative (Negative) 03/04/19 23:09 Urine Bilirubin Negative (Negative) 03/04/19 23:09 Urine Urobilinogen <2.0 mg/dL (<2.0) 03/04/19 23:09 Ur Leukocyte Esterase Negative (Negative) 03/04/19 23:09 Microbiology 03/09/19 09:44 Blood Blood Culture - Preliminary No Growth after 24 hours 03/04/19 18:31 Blood Blood Culture Gram Stain - Final 03/04/19 18:31 Blood Blood Culture - Final Enterococcus faecalis 03/08/19 08:46 Blood Blood Culture Gram Stain - Preliminary 03/08/19 08:46 Blood Blood Culture - Preliminary Group D Enterococcus 03/08/19 07:30 Blood Blood Culture Gram Stain - Preliminary 03/08/19 07:30 Blood Blood Culture - Preliminary Group D Enterococcus 03/06/19 09:55 Blood Blood Culture Gram Stain - Final 03/06/19 09:55 Blood Blood Culture - Final Enterococcus faecalis 03/06/19 10:10 Blood Blood Culture Gram Stain - Final 03/06/19 10:10 Blood Blood Culture - Final Enterococcus faecalis 03/06/19 02:42 Blood Blood Culture Gram Stain - Final 03/06/19 02:42 Blood Blood Culture - Final Enterococcus faecalis 03/08/19 07:30 Blood Blood Culture - Final 03/08/19 08:46 Blood Blood Culture - Final 03/06/19 11:12 Sputum Gram Stain - Final 03/06/19 11:12 Sputum Sputum Culture - Final 03/05/19 17:44 Blood Blood Culture Gram Stain - Final 03/05/19 17:44 Blood Blood Culture - Final Enterococcus faecalis 03/06/19 10:10 Blood Blood Culture - Final 03/06/19 09:55 Blood Blood Culture - Final 03/05/19 17:44 Blood Blood Culture - Final 03/06/19 02:42 Blood Blood Culture - Final 03/04/19 18:31 Blood Blood Culture - Final Assessment and Plan (1) Acute on chronic systolic CHF (congestive heart failure) Current Visit: Yes Status: Acute Code(s): I50.23 - ACUTE ON CHRONIC SYSTOLIC (CONGESTIVE) HEART FAILURE SNOMED Code(s): 210358116 (2) Cardiomyopathy Current Visit: Yes Status: Acute Code(s): I42.9 - CARDIOMYOPATHY, UNSPECIFIED SNOMED Code(s): 34091525 (3) Prosthetic valve endocarditis Narrative/Plan: 73-year-old gentleman with aortic valve replacement and prior CABG presented to Hospital and some he in worsening of his ischemic cardiomyopathy. He underwent biventricular ICD implantable pacemaker March 05. The he developed a fever and there are now positive blood cultures. The laboratory has identified enterococcus in the blood cultures. There is no specific other site of infection at this time other than the bacteremia. With aortic valve replacement concerns underlying endocarditis. Consequently antimicrobial therapy is transitioned to ampicillin sulbactam and gentamicin in synergistic dosing dosed by the pharmacy. Aware of his renal insufficiency however until bacteremia clears and there is a definitive alternative cause of the bacteremia would require gentamicin therapy for synergy. Follow blood cultures are requested. The patient has had central line and A-line just placed by the police shift commander. He is receiving fluid resuscitation and vasopressor therapy. 03/09/2019 the patient has had a LISSET performed today which verifies evidence of vegetation on the bioprosthetic aortic valve. The patient has many positive blood cultures. Enterococcus has been isolated. The patient has evidence of gentamicin synergy resistance. Gentamicin was discontinued. With this finding ceftriaxone is added to the Unasyn in attempts for synergy. Follow blood cultures will be obtained. The patient's renal failure is improving. He seemingly more stable. Hopefully he will now start to have evidence of clearance of his bacteremia with the synergistic combination. 03/10/2019 Patient remains intubated sedated and ventilated however is decreased therapy. The patient's itching with Unasyn and Rocephin for the enterococcus endocarditis verified with a LISSET yesterday. Cardiology is following. Current Visit: Yes Status: Acute Code(s): T82.6XXA - INFECT/INFLM REACTION DUE TO CARDIAC VALVE PROSTHESIS, INIT; I38 - ENDOCARDITIS, VALVE UNSPECIFIED SNOMED Code(s): 641707774
[2019-03-10 23:10] LABS: Glucose,Whole Blood 139 mg/dL (75-99)
[2019-03-11] MEDS: INSULIN ASPART (NovoLOG) 100 UNIT/ML VIAL SQ SCH ×4 (00:29→19:29)
[2019-03-11] MEDS: AMPICILLIN-SULBACTAM 3 GM in SODIUM CHLORIDE 0.9% 100 ML IVPB SCH ×4 (02:00→20:46)
[2019-03-11] MEDS: PROPOFOL 1,000 MG in EMPTY BAG 1 BAG IV SCH ×5 (02:12→20:58)
[2019-03-11] MEDS: DILTIAZEM 125 MG in SODIUM CHLORIDE 0.9% 100 ML IV SCH (04:08)
[2019-03-11] MEDS: NOREPINEPHRINE 4 MG in SODIUM CHLORIDE 0.9% 250 ML IV SCH ×2 (04:16→19:54)
[2019-03-11 05:25] LABS: Glucose,Whole Blood 149 mg/dL (75-99)
[2019-03-11 05:40] LABS: Basophils # (A) 0.1 k/uL (0-0.2); Basophils % (A) 1 %; Eosinophils # (A) 0.4 k/uL (0-0.7); Eosinophils % (A) 3 %; HCT 34.2 % (39.0-53.0); HGB 10.2 gm/dL (13.0-17.5); Hypochromasia Slight; Lymphocytes # (A) 0.9 k/uL (1.0-4.8); Lymphocytes % (A) 8 %; MCH 27.4 pg (25.0-35.0); MCHC 29.8 g/dL (31.0-37.0); MCV 92.1 fL (80.0-100.0); Mean Platelet Volume 8.7; Monocytes # (A) 0.7 k/uL (0-1.0); Monocytes % (A) 6 %; Neutrophils # (A) 9.2 k/uL (1.3-7.7); Neutrophils % (A) 81 %; Platelet Count 217 k/uL (150-450); RBC 3.71 m/uL (4.30-5.90); RDW 14.5 % (11.5-15.5); WBC 11.4 k/uL (3.8-10.6)
[2019-03-11 06:00] LABS: Calcium 8.8 mg/dL (8.4-10.2); Potassium 3.6 mmol/L (3.5-5.1)
[2019-03-11 07:21] LABS: ABG Base Excess 7.3 mmol/L; ABG HCO3 31 mmol/L (21-25); ABG Oxygen Saturation 98.1 % (94-97); ABG PCO2 39 mmHg (35-45); ABG PO2 103 mmHg (83-108); ABG TCO2 32 mmol/L (19-24)
--- NOTE | 2019-03-11 07:40 | XR ---
EXAMINATION TYPE: XR chest 1V portable DATE OF EXAM: 03/11/2019 COMPARISON: 03/10/2019 HISTORY: SOB, Follow Up FINDINGS: Indwelling tubes and catheters are unchanged. No change in bibasilar opacities. Stable appearance of the cardio-mediastinal structures at this time. Pleural effusion unchanged. IMPRESSION: 1. Stable portable chest. Clinical correlation and follow up until resolution is recommended.
[2019-03-11] MEDS: IPRATROPIUM 0.5 MG/2.5 ML NEBU INHALATION SCH ×4 (08:19→19:29)
[2019-03-11] MEDS: ASPIRIN 81 MG PO SCH (09:41)
[2019-03-11] MEDS: ATORVASTATIN 40 MG TAB PO SCH (09:44)
[2019-03-11] MEDS: CHLORHEXIDINE GLUCONATE 15 ML CUP MUCOUS MEM SCH ×2 (09:45→20:46)
[2019-03-11] MEDS: FUROSEMIDE 10 MG/ML 4 ML VIAL IV SCH ×2 (09:46→20:46)
[2019-03-11] MEDS: METOPROLOL TARTRATE 25 MG TAB PO SCH ×2 (09:47→20:46)
[2019-03-11] MEDS: HEPARIN SODIUM,PORCINE 5,000 UNIT/ML 1 ML VIAL SQ SCH ×2 (09:47→20:46)
[2019-03-11] MEDS: PANTOPRAZOLE 40 MG/10 ML VIAL IVP SCH (10:14)
[2019-03-11 12:11] LABS: Glucose,Whole Blood 139 mg/dL (75-99)
[2019-03-11] MEDS ORDERED: DILTIAZEM 125 MG in SODIUM CHLORIDE 0.9% 100 ML IV SCH (12:45)
--- NOTE | 2019-03-11 13:03 | P.PN ---
Subjective Progress Note Date: 03/11/19 Principal diagnosis: Acute hypoxic respiratory failure secondary to cardiogenic shock, and septic shock. Acute endocarditis. This is a 71-year-old male patient with known history of ischemic cardiomyopathy along with known history of coronary artery disease and previous aortic valve replacement, AVR, and previous coronary artery bypass surgery, who presented to the hospital because of chest pain and non-STEMI. The patient has had previous catheterizations with stenting done in the distal left main as well as the proximal circumflex. He has a chronically totally occluded RCA. As mentioned, the patient was admitted with chest pain or shortness of breath and acute non-S RAFAELA. The patient underwent another cardiac catheterization and the patient was found to have taken stent to the distal left mainstem to proximal circumflex, patent BELTRAN to LAD, chronic totally occluded RCA. Recommendations were mainly to maximize medical management. The patient was being treated for congestion heart failure. He was receiving Lasix drip and he was having ongoing orthopnea. [facility] was [facility] and the patient was given biventricular pacing/AICD. Noted postop, the patient was extubated. He became short of breath and went into significant amount of respiratory distress and within 10 minutes she had to be reintubated. He was brought into the intensive care unit intubated on a mechanical ventilator. Initial blood gases showed a pH of 7.28 with a pCO2 of 51 and pO2 of 234. Necessary vent changes were done. The most recent blood gas showed a pH of 7.48 with a pCO2 of 28 and pO2 of 229. The morning vent settings include a tidal volume 400 with a rate of 18 and FiO2 of 40% with 5. The setting was adjusted based on the most recent blood gas. I n oted that the patient is also on pressors and overnight the patient has required norepinephrine infusion and currently is running at 0.1 mcg/kg per minute. The patient is also on Lasix drip at 10 mg an hour. He is producing urine output. However, the patient has developed an acute kidney injury. Creatinine was normal at the time of admission on 02/27/2019 and there has been progressive rise in the creatinine which is up to 2.6 at this point in time. He was he was developing fevers with a temperature 11.6 on 03/04/2019. The patient has blood culture sent a blood culture came back positive for enterococcus group D. The patient was on cefazolin. IV Zosyn was added by the primary care team. This morning, the patient is sedated with propofol is currently running at 50 mics. His, comfortable. He is producing urine output. Her net fluid balance is -642 mL for yesterday. His cardiac rhythm is paced. His white cell count is 19.4. He is obviously septic condition with a positive blood culture. UA the time of admission was negative. He has a Diaz catheter in place. Abdomen is soft. His umbilical hernia. Surgical wound site over the left biventricular pacemaker is dry clean and intact. No significant orotracheal secretions. Chest x-ray from today shows cardiomegaly and lower lobe consolidation as the patient is a left lower lobe consolidation of the right upper lobe! The echocardiogram at shown an ejection fraction of 20-25%. There is moderate concentric left adela tricular hypertrophy. There is severe global hypokinesis. No pericardial effusion. The peak gradient across the aortic valve was 35 mmHg. It is a normal functioning bioprosthetic valve. There is moderate mitral regurgitation. Mild pulmonary hypertension. on 03/07/2019 the patient remains sedated and intubated on mechanical ventilator. The patient is on propofol for sedation. The patient is also on a mechanical ventilator on assist control mode with a tidal volume of 000 and the rate of 18 with an FiO2 of 40% and PEEP of 5. The chest x-ray from today shows stable findings and there is left lower lobe consolidation/effusion. ET tube is in a good location. The left ear showed a pH of 7.44 with a pCO2 of 34 and pO2 of 131. Based on this, there is a component of respiratory alkalosis and I dropped a respiratory rate down to 14. The telephone was kept at 500 for now. I took this patient off the Lasix therapy yesterday as the patient's CVP was running low and the patient was also developing acute kidney injury. Today CVP is also low measuring as high as 4-5 millimeters of mercury. Based on that, the patient was started on oral Lasix set of IV Lasix for cardiology. He is p roducing adequate amount of urine output. Creatinine is also improving and is down to 2.1. The patient is afebrile. The patient was seen by infectious disease. Antibiotic adjustments were done and the patient was placed on a combination of Unasyn and gentamicin. No clear indication for endocarditis. The patient has 3 positive blood culture that was positive for E faecalis, in the patient was simplified back to Unasyn and gentamicin was discontinued as the patient was found to be having a Enterococcus faecalis resistant to gentamicin.. The patient is producing adequate amount of urine output. He is still on pressors and the present doses been weaned down to 0.07 micrograms per kilogram per minute of norepinephrine infusion. The patient will be started on enteral feeding for nutritional support. Cardiology is on the case. Cardiac rhythm remains paced. No significant electrolyte imbalance in the patient's white cell count is down to 10.5. 03/08/2019, the patient remains intubated on a mechanical ventilator. The patient remains hemodynamically unstable requiring pressors and the norepinephrine infusion is running at 0.08 mcg/kg per minute. He is also on Prinivil at 40 mics per KG. The patient a mechanical ventilator on assist control mode with a tidal volume of 500 and rate of 18 with an FiO2 of 40% and a PEEP of 5. Chest x-ray is unchanged compared to yesterday and there are some white pulmonary vessel congestion. The patient is producing 25 mL of urine output on an hourly basis. Net fluid balance is positive to 11 mL over the past 24 hours. He is currently on oral Lasix. He is also on norepinephrine infusion. He is on enteral feeding for nutritional support. He is receiving before for sedation. Note that all of the blood cultures came back positive for Enterococcus faecalis. The patient remains on IV Unasyn. Follow-up cultures were obtained to make sure there is no ongoing bacteremia. There is a high likely what that it there may be a component of infective endocarditis. The patient will need a LISSET to evaluate this further. His cardiac rhythm is paced. The fibrillator pocket is clean and intact at this point in time. As for his continued kidney injury, the patient's creatinine is improving and the creatinine is down to 1.72. The white cell count is also down to 10.5 and the patient is responding to IV Unasyn for now. Reevaluated today on 03/09/2019, patient remains on mechanical ventilation, he is still on norepinephrine at 0.05 mcg/kg/m, still on propofol at 50 mcg/kg/m. He is on mechanical ventilation, assist control rate of 18, FiO2 is 40%, PEEP of 5. Tidal volume is 500. Transesophageal echocardiogram is suspicious for vegetations involving the aortic bioprosthetic valve there was also evidence of thickened mitral valve leaflets with moderate mitral regurgitation. His LV function was noted to be impaired ejection fraction of 20%. ABG this morning showed a pO2 of 120 pCO2 of 42 pH of 7.42 11 lites are normal renal profile is abnormal with BUN of 42 creatinine of 1.75 WBC count is 12.3 hemoglobin is 10.2. Chest x-ray is suspicious for mild interstitial edema and small bilateral pleural effusions. There is also some retrocardiac atelectasis. Patient is sedated, on mechanical ventilation, I have no plans to wean the patient today since LISSET was scheduled to be done shortly after I evaluated the patient. Patient was reevaluated today on 03/10/2019, remains on mechanical ventilation, his ventilator settings are assist control rate of 14 FiO2 is 40% PEEP is 5 tidal volume is 500. Patient is on Cardizem drip as per cardiology 5 mg per hour, his also on metoprolol, and he is on norepinephrine at 0.05 mcg/kg/m. Propofol is 25 mcg/kg/m. Chest x-ray showed cardiomegaly and prominent pulmonary vasculature with minimal basilar atelectasis. ABG showed a pO2 of 117 pCO2 of 43 pH of 7.45. WBC count is 14.8 hemoglobin is 10.5. Electrolytes are relatively normal. Renal profile showed a BUN of 42 creatinine of 1.70. Patient remains sedated, however I plan to hold his sedation today, and hopefully assess mental status and decide whether we can proceed with any further weaning trials. Family is at bedside and they were updated on his condition and on the fact that he has endocarditis. Antibiotics were addressed by Dr. Nguyễn, patient is now on Unasyn. He also remains on Rocephin. Reevaluated today on 03/11/2019, remains in the ICU on mechanical ventilation. His ventilator settings are assist control rate of 14, tidal volume is 500 FiO2 of 35% PEEP is 5. Remains on propofol at 30 mcg/kg/m, he is off pressors. ABG this morning showed a pO2 of 103 pCO2 of 39 pH of 7.50. Electrolytes are normal however his BUN is 51 creatinine is 1.84. WBC count is 11.4 hemoglobin is 10.2. Patient remains on nutritional support via enteral feeding. Remains on antibiotics for his underlying endocarditis as per infectious disease. Yesterday the patient was given a sedation interruption, and a trial of weaning, however he was extremely agitated, restless, and could not go on to wean or extubated the patient. This would be reattempted again today. Objective - Vital Signs Vital signs: Vital Signs Temp 99.8 F H 03/11/19 12:00 Pulse 94 03/11/19 12:00 Resp 22 03/11/19 12:00 BP 106/88 03/11/19 12:00 Pulse Ox 94 L 03/11/19 12:00 Intake & Output 03/10/19 03/11/19 03/11/19 18:59 06:59 18:59 Intake Total 8969.777 8490.041 398.914 Output Total 1245 1385 865 Balance -34.843 206.041 -466.086 Weight 124.5 kg 123.3 kg Intake: IV 330 340 200 Ampicillin-Sulbactam 3 gm 100 100 100 In Sodium Chloride 0.9% 100 ml @ 200 mls/hr IVPB Q6H DEANDRA Rx#:[id number] KVO 230 240 100 Intake, IV Titration 388.157 537.041 146.914 Amount Ampicillin-Sulbactam 3 gm 100 In Sodium Chloride 0.9% 100 ml @ 200 mls/hr IVPB Q6H DEANDRA Rx#:[id number] Diltiazem 125 mg In 132.583 Sodium Chloride 0.9% 100 ml @ Per Protocol IV .Q0M DEANDRA Rx#:[id number] Norepinephrine 4 mg In 138.157 50.576 Sodium Chloride 0.9% 250 ml @ 0.05 MCG/KG/MIN 22. 479 mls/hr IV .[id number] DEANDRA Rx#:[id number] Propofol 1,000 mg In 200.000 253.882 96.914 Empty Bag 1 bag @ Titrate IV .Q0M DEANDRA Rx#: [id number] cefTRIAXone 2 gm In 50 50 Sodium Chloride 0.9% 50 ml @ 100 mls/hr IVPB Q24HR DEANDRA Rx#:[id number] Tube Feeding 492 624 52 Other 90 Output: Urine 1245 1385 865 Other: Voiding Method Indwelling Catheter Indwelling Catheter Indwelling Catheter # Bowel Movements 1 ABP, PAP, CO, CI - Last Documented Arterial Blood Pressure 111/58 - Exam Physical Exam: Revealed a 73-year-old white male, remains on propofol, on mechanical ventilation. Head: Atraumatic, normocephalic. Endotracheal tube is intact and orogastric tube is intact. HEENT:[Neck is supple.] [No neck masses.] [No thyromegaly.] [No JVD.] Moist mucous membranes Chest: Crackles at the bases noted bilaterally, symmetrical chest expansion.] Cardiac Exam: [Normal S1 and S2, no S3 gallop, 2/6 systolic murmur thought the precordium] Abdomen: [Soft, nontender, no megaly, no rebound, no guarding, normal bowel sounds.] Extremities: [No clubbing, no edema, no cyanosis.] Neurological Exam: Cannot be assessed, patient is fully sedated. Psychiatric: Cannot be assessed Lymphatics: No lymphadenopathy. Skin: No rashes - Labs CBC & Chem 7: 03/11/19 05:22 03/11/19 05:22 Labs: Abnormal Lab Results - Last 24 Hours (Table) 03/10/19 03/10/19 03/11/19 Range/Units 16:46 23:06 05:20 WBC (3.8-10.6) k/uL RBC (4.30-5.90) m/uL Hgb (13.0-17.5) gm/dL Hct (39.0-53.0) % MCHC (31.0-37.0) g/dL Neutrophils # (1.3-7.7) k/uL Lymphocytes # (1.0-4.8) k/uL ABG pH (7.35-7.45) ABG HCO3 (21-25) mmol/L ABG Total CO2 (19-24) mmol/L ABG O2 Saturation (94-97) % Sodium (137-145) mmol/L Chloride (98-107) mmol/L BUN (9-20) mg/dL Creatinine (0.66-1.25) mg/dL Glucose (74-99) mg/dL POC Glucose (mg/dL) 136 H 139 H 149 H (75-99) mg/dL 03/11/19 03/11/19 03/11/19 Range/Units 05:22 05:22 07:17 WBC 11.4 H (3.8-10.6) k/uL RBC 3.71 L (4.30-5.90) m/uL Hgb 10.2 L (13.0-17.5) gm/dL Hct 34.2 L (39.0-53.0) % MCHC 29.8 L (31.0-37.0) g/dL Neutrophils # 9.2 H (1.3-7.7) k/uL Lymphocytes # 0.9 L (1.0-4.8) k/uL ABG pH 7.50 H (7.35-7.45) ABG HCO3 31 H (21-25) mmol/L ABG Total CO2 32 H (19-24) mmol/L ABG O2 Saturation 98.1 H (94-97) % Sodium 148 H (137-145) mmol/L Chloride 109 H (98-107) mmol/L BUN 51 H (9-20) mg/dL Creatinine 1.84 H (0.66-1.25) mg/dL Glucose 148 H (74-99) mg/dL POC Glucose (mg/dL) (75-99) mg/dL 03/11/19 Range/Units 11:39 WBC (3.8-10.6) k/uL RBC (4.30-5.90) m/uL Hgb (13.0-17.5) gm/dL Hct (39.0-53.0) % MCHC (31.0-37.0) g/dL Neutrophils # (1.3-7.7) k/uL Lymphocytes # (1.0-4.8) k/uL ABG pH (7.35-7.45) ABG HCO3 (21-25) mmol/L ABG Total CO2 (19-24) mmol/L ABG O2 Saturation (94-97) % Sodium (137-145) mmol/L Chloride (98-107) mmol/L BUN (9-20) mg/dL Creatinine (0.66-1.25) mg/dL Glucose (74-99) mg/dL POC Glucose (mg/dL) 139 H (75-99) mg/dL Microbiology - Last 24 Hours (Table) 03/09/19 09:44 Blood Culture - Preliminary Blood No Growth after 48 hours 03/08/19 08:46 Blood Culture Gram Stain - Final Blood Blood Culture - Final Enterococcus faecalis 03/08/19 07:30 Blood Culture Gram Stain - Final Blood Blood Culture - Final Enterococcus faecalis Assessment and Plan Assessment: Impression: 1 acute hypoxic respiratory failure secondary to cardiogenic shock and septic shock. 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 3 severe LV dysfunction and cardiomyopathy, ischemic in nature, ejection fraction of 20-25% post-insertion of AICD. 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 6 septic shock secondary to enterococcal infection 7 acute kidney injury secondary to sepsis, ATN, and possibly contrast nephropathy 8 history of underlying COPD, hypertension, hyperlipidemia, obesity, and generalized anxiety disorder. Recommendation: Continue ventilatory support Continue nutritional support Continue antibiotics and/Unasyn and Rocephin Continue GI and DVT prophylaxis Continued daily trials of sedation interruption and possibly weaning trials. Patient will be given another trial of weaning today, and depending on how he does, may proceed to extubation. This will be addressed accordingly depending on his overall weaning trial today. Instructed the nurses to hold propofol, and we'll definitely proceed with weaning trial today. Prognosis remains guarded, patient remains quite ill, critical care time is 35 minutes. Time with Patient: Greater than 30
[2019-03-11] MEDS ORDERED: Potassium Replacement Protocol 1 EACH MISC MISCELLANE PRN (14:10)
[2019-03-11 14:11] LABS: ABG Base Excess 8.7 mmol/L; ABG HCO3 32 mmol/L (21-25); ABG Oxygen Saturation 97.8 % (94-97); ABG PCO2 40 mmHg (35-45); ABG PH 7.51 (7.35-7.45); ABG PO2 99 mmHg (83-108); ABG TCO2 33 mmol/L (19-24)
[2019-03-11 14:14] LABS: Allen Test Performed? no
[2019-03-11] MEDS ORDERED: POTASSIUM BICARBONATE/CIT AC 20 MEQ TABLET.EFF NG-TUBE SCH (15:00)
--- NOTE | 2019-03-11 15:27 | P.PN ---
Subjective This is a pleasant 73 years old male with past medical history of coronary artery disease patient , , heart failure, asthma, GERD, hyperlipidemia, h ypertension, osteoarthritis, valvular heart disease. Patient was admitted with non-STEMI, he underwent cardiac cath on 03/03/2019, showing patent stents and coronaries. Also patient underwent elective EP study yesterday and status post AICD placement, patient is currently in the ICU intubated and could not provide information, he was extubated for short time before he needed reintubation. Information was taken from the staff at the medical records as patient cannot contribute to history . He has low ejection fraction 20-25%. Patient is obese and he needed low dose of pressors. He has distended abdomen, possibly from fat. No focal neurological findings. Also he has positive blood culture with enterococcus and trending up leukocytes. Infectious disease was consulted, patient is currently on Zosyn. Also patient creatinine is trending up however patient is making reasonable urine output, he was on Lasix drip but this was stopped. 03/07/2019 Patient in the ICU intubated and sedated, his vitals with blood pressure 130/54, and he is saturating 98%. His WBC is back to normal at 10.5. Creatinine is at 2.14 with slight improvement down from 2.6 yesterday. He has several blood culture positive for enterococcus. Chest x-ray showing no significant change. Patient has been evaluated by electrical intern and drop count associate, drop count associate considering LISSET if blood culture remains positive. Patient also was started on gentamicin and Unasyn as per infectious disease recommendation 03/08/2019 Patient remains in the ICU, he still intubated and sedated. Blood pressure 108/52, saturating 96%, heart rate is 70. K, hemoglobin is stable at 10.4, platelets are within normal limits. Creatinine is improving gradually down to 1.7, electrolytes included sodium and potassium are within normal limits, sugar is running between 129-155. Magnesium is elevated at 2.5,. He has several bloo d culture that's positive for group D enterococcus faecalis, cardiology R following the case and the plan is for transesophageal echocardiogram tomorrow to rule out endocarditis 03/09/2019 Patient is ICU intubated and sedated, patient is planned to go for transesophageal echocardiogram today to rule out endocarditis in view of his persistent bacteremia/septicemia. Patient remains currently on Unasyn. Patient is slightly bradycardic at 57-60, he had low-grade temperature yesterday of 100.2, blood pressure 102/58, lap showing mild leukocytosis of 12.3 K, hemoglobin is stable. Creatinine is improving to 1.75. ABGs showed pH of 7.4, pCO2 42 which are within normal limits, pO2 is 120. Repeat blood cultures are pending, repeat chest x-ray from today showing fluid overload with interstitial edema with possible atelectasis. 03/10/2019 Patient remains in the ICU intubated and sedated, yesterday he had a LISSET which showing low ejection fraction around 20% with agitation note dictated on the aortic valve. Also patient noted to bleed easily given from subcutaneous injection site, currently is on subcu heparin to 8 which is lower to every 12 this morning, he is also on aspirin and Plavix, platelets are normal. We don't to check PT and INR and PTT today. Last night patient was started on Cardizem drip for better control of his blood pressure and heart rate and blood pressure. Patient is followed closely by cardiology and rectal care team. Prognosis is extremely poor 03/11/2019 Patient remains in the ICU, he is intubated and sedated. Patient failed weaning trials today by the pulmonary team. Patient is still tachycardic and he was started on Cardizem drip today, blood pressure 111/66. mild leukocytosis of 11.4 k, hemoglobin 10.2, sodium is 148, creatinine 1.8, compared to 1.7 yesterday. repeat blood cultures still shown enterococcus. the patient remains on unasyn and ceftriaxone currently with infectious disease followed the case closely. patient is following closely by cardiology and pulmonary/critical care team. prognosis remains guarded Review of systems: N/a Active Medications Generic Name Dose Route Start Last Admin Trade Name Freq PRN Reason Stop Dose Admin Acetaminophen 650 mg 03/05/19 18:53 Tylenol Tab PO Q6HR PRN Mild Pain Albuterol Sulfate 2.5 mg 03/01/19 20:10 03/06/19 15:31 Ventolin Nebulized INHALATION 2.5 mg Q4H PRN Administration sob Allopurinol 100 mg 03/01/19 20:10 Zyloprim PO HS PRN gout Aspirin 81 mg 03/09/19 09:00 03/11/19 09:41 Aspirin PO 81 mg DAILY DEANDRA Administration Atorvastatin Calcium 40 mg 03/09/19 09:00 03/11/19 09:44 Lipitor PO 40 mg DAILY DEANDRA Administration Bisacodyl 10 mg 03/01/19 20:12 Dulcolax PO DAILY PRN Constipation Chlorhexidine Gluconate 15 ml 03/06/19 09:00 03/11/19 09:45 Peridex MUCOUS MEM 15 ml BID DEANDRA Administration Clopidogrel Bisulfate 75 mg 03/01/19 21:00 03/10/19 20:53 Plavix PO 75 mg HS DEANDRA Administration Furosemide 40 mg 03/08/19 21:00 03/11/19 09:46 Lasix IV 40 mg Q12HR DEANDRA Administration Heparin Sodium (Porcine) 5,000 unit 03/10/19 21:00 03/11/19 09:47 Heparin SQ 5,000 unit Q12HR DEANDRA Administration Hydromorphone HCl 1 mg 03/08/19 15:04 03/09/19 20:18 Dilaudid IVP 1 mg Q3H PRN Administration Pain Propofol 1,000 mg/ IV Solution 100 mls @ 0 mls/hr 03/05/19 22:30 03/11/19 10:00 IV 30 mcg/kg/min .Q0M DEANDRA 22.194 mls/hr Administration Protocol Titrate Norepinephrine Bitartrate 4 mg 254 mls @ 22.479 mls/hr 03/05/19 23:45 03/11/19 04:16 / Sodium Chloride IV Not Given .[id number] DEANDRA Protocol 0.05 MCG/KG/MIN Ampicillin Sodium/Sulbactam 100 mls @ 200 mls/hr 03/08/19 14:00 03/11/19 15:06 Sodium 3 gm/ Sodium Chloride IVPB 200 mls/hr Q6H DEANDRA Administration Ceftriaxone Sodium 2 gm/ 50 mls @ 100 mls/hr 03/09/19 17:00 03/11/19 10:47 Sodium Chloride IVPB 100 mls/hr Q24HR DEANDRA Administration Diltiazem HCl 125 mg/ Sodium 125 mls @ 5 mls/hr 03/11/19 12:45 03/11/19 12:45 Chloride IV 5 mg/hr .Q24H DEANDRA 5 mls/hr Administration 5 MG/HR Insulin Aspart 0 unit 03/07/19 06:00 03/11/19 11:42 Novolog SQ 1 unit Q6H DEANDRA Administration Protocol Ipratropium [place] 0.5 mg 03/02/19 08:00 03/11/19 15:14 Atrovent Nebulized INHALATION 0.5 mg RT-QID DEANDRA Administration Metoprolol Tartrate 25 mg 03/10/19 08:30 03/11/19 09:47 Lopressor PO 25 mg BID DEANDRA Administration Miscellaneous Information 1 each 03/09/19 16:49 Md Communication To Pharmacy PO ONCE PRN See Comments Miscellaneous Information 1 each 03/11/19 14:10 Potassium Per Protocol MISCELLANE DAILY PRN Per Protocol Protocol Nitroglycerin 0.4 mg 03/01/19 16:04 Nitrostat SUBLINGUAL Q5M PRN Chest Pain Pantoprazole Sodium 40 mg 03/09/19 09:00 03/11/19 10:14 Protonix IVP 40 mg DAILY DEANDRA Administration Sodium Chloride 10 ml 03/05/19 21:00 03/11/19 10:15 Saline Flush IV 10 ml Q12HR DEANDRA Administration Objective - Vital Signs Vital signs: Vital Signs Temp 99.8 F H 03/11/19 12:00 Pulse 120 H 03/11/19 15:21 Resp 18 03/11/19 15:00 BP 109/95 03/11/19 15:00 Pulse Ox 94 L 03/11/19 15:00 Intake & Output 03/10/19 03/11/19 03/11/19 18:59 06:59 18:59 Intake Total 9417.847 1359.041 870.914 Output Total 1245 1385 1440 Balance -34.843 206.041 -569.086 Weight 124.5 kg 123.3 kg Intake: IV 330 340 260 Ampicillin-Sulbactam 3 gm 100 100 100 In Sodium Chloride 0.9% 100 ml @ 200 mls/hr IVPB Q6H DEANDRA Rx#:[id number] KVO 230 240 160 Intake, IV Titration 388.157 537.041 246.914 Amount Ampicillin-Sulbactam 3 gm 100 100 In Sodium Chloride 0.9% 100 ml @ 200 mls/hr IVPB Q6H DEANDRA Rx#:[id number] Diltiazem 125 mg In 132.583 Sodium Chloride 0.9% 100 ml @ Per Protocol IV .Q0M DEANDRA Rx#:[id number] Norepinephrine 4 mg In 138.157 50.576 Sodium Chloride 0.9% 250 ml @ 0.05 MCG/KG/MIN 22. 479 mls/hr IV .[id number] DEANDRA Rx#:[id number] Propofol 1,000 mg In 200.000 253.882 96.914 Empty Bag 1 bag @ Titrate IV .Q0M DEANDRA Rx#: [id number] cefTRIAXone 2 gm In 50 50 Sodium Chloride 0.9% 50 ml @ 100 mls/hr IVPB Q24HR DEANDRA Rx#:[id number] Tube Feeding 492 624 364 Other 90 Output: Urine 1245 1385 1440 Other: Voiding Method Indwelling Catheter Indwelling Catheter Indwelling Catheter # Bowel Movements 1 ABP, PAP, CO, CI - Last Documented Arterial Blood Pressure 111/66 - Exam -GENERAL: The patient is intubated and sedated HEENT: Pupils are round and equally reacting to light. EOMI. No scleral icterus. No conjunctival pallor. Normocephalic, atraumatic. No pharyngeal erythema. No thyromegaly. CARDIOVASCULAR: S1 and S2 present. No murmurs, rubs, or gallops. PULMONARY: Chest is clear to auscultation, no wheezing or crackles. ABDOMEN: Soft, nontender, nondistended, normoactive bowel sounds. No palpable organomegaly. MUSCULOSKELETAL: No joint swelling or deformity. EXTREMITIES: No cyanosis, clubbing, or pedal edema. NEUROLOGICAL: Gross neurological examination did not reveal any focal deficits. SKIN: No rashes. no petechiae. - Labs CBC & Chem 7: 03/11/19 05:22 03/11/19 05:22 Labs: Abnormal Lab Results - Last 24 Hours (Table) 03/10/19 03/10/19 03/11/19 Range/Units 16:46 23:06 05:20 WBC (3.8-10.6) k/uL RBC (4.30-5.90) m/uL Hgb (13.0-17.5) gm/dL Hct (39.0-53.0) % MCHC (31.0-37.0) g/dL Neutrophils # (1.3-7.7) k/uL Lymphocytes # (1.0-4.8) k/uL ABG pH (7.35-7.45) ABG HCO3 (21-25) mmol/L ABG Total CO2 (19-24) mmol/L ABG O2 Saturation (94-97) % Sodium (137-145) mmol/L Chloride (98-107) mmol/L BUN (9-20) mg/dL Creatinine (0.66-1.25) mg/dL Glucose (74-99) mg/dL POC Glucose (mg/dL) 136 H 139 H 149 H (75-99) mg/dL 03/11/19 03/11/19 03/11/19 Range/Units 05:22 05:22 07:17 WBC 11.4 H (3.8-10.6) k/uL RBC 3.71 L (4.30-5.90) m/uL Hgb 10.2 L (13.0-17.5) gm/dL Hct 34.2 L (39.0-53.0) % MCHC 29.8 L (31.0-37.0) g/dL Neutrophils # 9.2 H (1.3-7.7) k/uL Lymphocytes # 0.9 L (1.0-4.8) k/uL ABG pH 7.50 H (7.35-7.45) ABG HCO3 31 H (21-25) mmol/L ABG Total CO2 32 H (19-24) mmol/L ABG O2 Saturation 98.1 H (94-97) % Sodium 148 H (137-145) mmol/L Chloride 109 H (98-107) mmol/L BUN 51 H (9-20) mg/dL Creatinine 1.84 H (0.66-1.25) mg/dL Glucose 148 H (74-99) mg/dL POC Glucose (mg/dL) (75-99) mg/dL 03/11/19 03/11/19 Range/Units 11:39 14:09 WBC (3.8-10.6) k/uL RBC (4.30-5.90) m/uL Hgb (13.0-17.5) gm/dL Hct (39.0-53.0) % MCHC (31.0-37.0) g/dL Neutrophils # (1.3-7.7) k/uL Lymphocytes # (1.0-4.8) k/uL ABG pH 7.51 H (7.35-7.45) ABG HCO3 32 H (21-25) mmol/L ABG Total CO2 33 H (19-24) mmol/L ABG O2 Saturation 97.8 H (94-97) % Sodium (137-145) mmol/L Chloride (98-107) mmol/L BUN (9-20) mg/dL Creatinine (0.66-1.25) mg/dL Glucose (74-99) mg/dL POC Glucose (mg/dL) 139 H (75-99) mg/dL Microbiology - Last 24 Hours (Table) 03/10/19 12:00 Blood Culture - Preliminary Blood No Growth after 24 hours 03/09/19 09:44 Blood Culture - Preliminary Blood No Growth after 48 hours 03/08/19 08:46 Blood Culture Gram Stain - Final Blood Blood Culture - Final Enterococcus faecalis 03/08/19 07:30 Blood Culture Gram Stain - Final Blood Blood Culture - Final Enterococcus faecalis Assessment and Plan Assessment: Cardiogenic shock Acute on chronic systolic congestive heart failure with ejection fraction 20- 25%, on the top of history of severe ischemic cardiomyopathy. 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 Continue with antibiotics as per infectious disease recommendation, follow-up final culture results. Patient remains intubated and measures by critical care team. Patient is on Lasix. . Continue with process as per critical care team recommendations. Follow-up cardiology recommendations. Follow-up WBC and creatinine.Labs and medication were reviewed. Nephrology consult for renal disease. Continue same treatment. Continue with symptomatic treatment. Resume home medication. Monitor lytes and vitals. DVT and GI prophylaxis. Further recommendations of the clinical course of the patient DVT prophylaxis: Subcutaneous heparin GI Prophylaxis: Protonix Prognosis is extremely poor and guarded
[2019-03-11 18:34] LABS: Glucose,Whole Blood 140 mg/dL (75-99)
[2019-03-11 19:28] LABS: Glucose,Whole Blood 122 mg/dL (75-99)
--- NOTE | 2019-03-11 20:05 | PN ---
PROGRESS NOTE Patient is seen for followup for acute kidney injury. He remains nonoliguric with good urine output. Patient is maintained on tube feedings. His sodium is elevated today. He remains on the vent. FiO2 is at 35%. Levophed is off. On examination this morning, blood pressure was 103/67, heart rate of 96 per minute. Patient is afebrile. EXAMINATION OF THE HEART: S1 and S2. EXAMINATION OF LUNGS: Bilateral breath sounds are heard. ABDOMEN: Soft, non-tender. Examination of lower extremities shows edema 1+ bilaterally. SEQUINS SPOOLER exam cannot be performed. Labs show sodium 148, potassium 3.6, chloride 109, BUN 51, serum creatinine 1.84, hemoglobin 10.2 g/dL. ASSESSMENT: 1. Acute kidney injury, acute tubular necrosis, currently nonoliguric. Patient is maintained on IV Lasix for volume overload, which I will continue. 2. Volume overload. Weight is down. Continue with current dose of Lasix. Twenty-four- hour urine output about 2.6 L. 3. Sepsis from endocarditis. Blood culture is growing Enterococcus faecalis, being followed by ID. 4. Hypernatremia associated with free water deficit. Increase free water down the feeding tube. 5. Hyperuricemia, maintained on Zyloprim. 6. Hypoxic respiratory failure, currently on the vent. PLAN: Add free water down the feeding tube 100 mL q.6 hours. Repeat labs in a.m. Continue current dose of Lasix. [id number] / IJN: [id number] /
[2019-03-11] MEDS: CLOPIDOGREL 75 MG TAB PO SCH (20:46)
--- NOTE | 2019-03-11 20:46 | P.PN ---
Subjective Progress Note Date: 03/11/19 This is a 73-year-old male with known history of ischemic cardiomyopathy along with known history of coronary artery disease and previous aortic valve replacement, AVR, and previous coronary artery bypass surgery. He presented on March 01 because of chest pain and found to have non-STEMI. He underwent cardiac catheterization with Dr. Juarez on 03/03 and the patient was found to have patent stent to the distal left mainstem to proximal circumflex, patent BELTRAN to LAD, chronic totally occluded RCA. Recommendations were mainly to maximize medical management. Patient was apparently having runs of V. tach and a consult was added for Dr. Ho. Patient subsequently underwent a biventricular ICD implantation on March 05. Patient was intubated prior to the procedure as apparently he is unable to lay flat for this. He received 700 mL of fluid during procedure. He was extubated last evening for only 3 minutes and was re- intubated. He was given Lasix 40 mg IV push followed by Lasix drip at 10 mg per hour. The Lasix to was discontinued this morning. Patient remains intubated, on sedation and on levo fed. His chest x-ray this morning reveals a right upper lobe pneumonia and probable heart failure. Patient has been running fevers up to 101.6 on evening of 925. White count 20.6, renal function is worsening with a BUN 45 and creatinine 2.6. Urinalysis was clear with nitrate and l eukoesterase negative. Urine output has been on the lower side running about 50 mL per hour or less. Blood culture from 03/04 is group D enterococcus and thus this consult was requested. 03/09/2019 the patient had evidence of isolated enterococcal bacteremia. The case was discussed with cardiology and a LISSET has been performed today which is verified evidence of a vegetation on the bioprosthetic aortic valve. There is no evidence of any ring abscess or of extensive valvular disease. The patient has shown some improvement in that his fever is improved and his leukocytosis is improving. 03/10/2019 patient remains intubated sedated and mechanically ventilated. His oxygen requirements have decreased in with increased dose of beta russell treatment started as some further improvement of his rate and dysrhythmia. He has been seen by cardiovascular surgeon. 03/11/2019 patient had weaning trial not successful to be retried tomorrow. Off of vasopressor therapy and stable. Objective - Vital Signs Vital signs: Vital Signs Temp 98.8 F 03/11/19 20:00 Pulse 83 03/11/19 20:00 Resp 16 03/11/19 20:00 BP 100/68 03/11/19 20:00 Pulse Ox 96 03/11/19 20:00 Intake & Output 03/11/19 03/11/19 03/12/19 06:59 18:59 06:59 Intake Total 1730.408 9881.914 172 Output Total 1385 1540 75 Balance 206.041 -333.086 97 Weight 123.3 kg Intake: IV 340 340 20 Ampicillin-Sulbactam 3 gm 100 100 In Sodium Chloride 0.9% 100 ml @ 200 mls/hr IVPB Q6H DEANDRA Rx#:[id number] KVO 240 240 20 Intake, IV Titration 537.041 346.914 Amount Ampicillin-Sulbactam 3 gm 100 100 In Sodium Chloride 0.9% 100 ml @ 200 mls/hr IVPB Q6H DEANDRA Rx#:[id number] Diltiazem 125 mg In 132.583 Sodium Chloride 0.9% 100 ml @ Per Protocol IV .Q0M DEANDRA Rx#:[id number] Norepinephrine 4 mg In 50.576 Sodium Chloride 0.9% 250 ml @ 0.05 MCG/KG/MIN 22. 479 mls/hr IV .[id number] DEANDRA Rx#:[id number] Propofol 1,000 mg In 253.882 196.914 Empty Bag 1 bag @ Titrate IV .Q0M DEANDRA Rx#: [id number] cefTRIAXone 2 gm In 50 Sodium Chloride 0.9% 50 ml @ 100 mls/hr IVPB Q24HR DEANDRA Rx#:[id number] Tube Feeding 624 520 52 Other 90 100 Output: Urine 1385 1540 75 Other: Voiding Method Indwelling Catheter Indwelling Catheter Indwelling Catheter # Bowel Movements 1 ABP, PAP, CO, CI - Last Documented Arterial Blood Pressure 105/60 - Exam Gen: This is a 73-year-old male. He is on sedation, an ICU bed, intubated and on mechanical ventilation. Patient opens eyes to verbal stimuli and touch. HEENT: Head is atraumatic, normocephalic. Pupils equal, round. Sclerae is anicteric. Conjunctiva pink. Oral mucous membranes are moist. Appears patient is edentulous. ET and gastric tube are in place orally. NECK: Supple. No JVD. No lymphadenopathy. No thyromegaly. LUNGS: Diminished bilaterally. No wheezes or rhonchi. No intercostal retractions. HEART: Regular rate and rhythm. No murmur. There is a dressing over the AICD, left upper chest wall, no drainage. No significant edema around the area. ABDOMEN: Soft. Bowel sounds are present. No masses. No tenderness. No redness under her abdominal fold. Diaz catheter draining clear dmitry urine. EXTREMITIES: Trace bilateral pedal edema. No wounds, no cellulitis noted. Dorsalis pedis 1+ bilaterally. NEUROLOGICAL: Patient is sedated. - EENT Eyes: Present: abnormal pupil - Labs CBC & Chem 7: 03/11/19 05:22 03/11/19 05:22 Labs: Abnormal Lab Results - Last 24 Hours (Table) 03/10/19 03/11/19 03/11/19 Range/Units 23:06 05:20 05:22 WBC (3.8-10.6) k/uL RBC (4.30-5.90) m/uL Hgb (13.0-17.5) gm/dL Hct (39.0-53.0) % MCHC (31.0-37.0) g/dL Neutrophils # (1.3-7.7) k/uL Lymphocytes # (1.0-4.8) k/uL ABG pH (7.35-7.45) ABG HCO3 (21-25) mmol/L ABG Total CO2 (19-24) mmol/L ABG O2 Saturation (94-97) % Sodium 148 H (137-145) mmol/L Chloride 109 H (98-107) mmol/L BUN 51 H (9-20) mg/dL Creatinine 1.84 H (0.66-1.25) mg/dL Glucose 148 H (74-99) mg/dL POC Glucose (mg/dL) 139 H 149 H (75-99) mg/dL 03/11/19 03/11/19 03/11/19 Range/Units 05:22 07:17 11:39 WBC 11.4 H (3.8-10.6) k/uL RBC 3.71 L (4.30-5.90) m/uL Hgb 10.2 L (13.0-17.5) gm/dL Hct 34.2 L (39.0-53.0) % MCHC 29.8 L (31.0-37.0) g/dL Neutrophils # 9.2 H (1.3-7.7) k/uL Lymphocytes # 0.9 L (1.0-4.8) k/uL ABG pH 7.50 H (7.35-7.45) ABG HCO3 31 H (21-25) mmol/L ABG Total CO2 32 H (19-24) mmol/L ABG O2 Saturation 98.1 H (94-97) % Sodium (137-145) mmol/L Chloride (98-107) mmol/L BUN (9-20) mg/dL Creatinine (0.66-1.25) mg/dL Glucose (74-99) mg/dL POC Glucose (mg/dL) 139 H (75-99) mg/dL 03/11/19 03/11/19 03/11/19 Range/Units 14:09 18:08 19:21 WBC (3.8-10.6) k/uL RBC (4.30-5.90) m/uL Hgb (13.0-17.5) gm/dL Hct (39.0-53.0) % MCHC (31.0-37.0) g/dL Neutrophils # (1.3-7.7) k/uL Lymphocytes # (1.0-4.8) k/uL ABG pH 7.51 H (7.35-7.45) ABG HCO3 32 H (21-25) mmol/L ABG Total CO2 33 H (19-24) mmol/L ABG O2 Saturation 97.8 H (94-97) % Sodium (137-145) mmol/L Chloride (98-107) mmol/L BUN (9-20) mg/dL Creatinine (0.66-1.25) mg/dL Glucose (74-99) mg/dL POC Glucose (mg/dL) 140 H 122 H (75-99) mg/dL Microbiology - Last 24 Hours (Table) 03/10/19 12:00 Blood Culture - Preliminary Blood No Growth after 24 hours 03/09/19 09:44 Blood Culture - Preliminary Blood No Growth after 48 hours 03/08/19 08:46 Blood Culture Gram Stain - Final Blood Blood Culture - Final Enterococcus faecalis 03/08/19 07:30 Blood Culture Gram Stain - Final Blood Blood Culture - Final Enterococcus faecalis Current Medications Laboratory Results WBC 11.4 k/uL (3.8-10.6) H 03/11/19 05:22 RBC 3.71 m/uL (4.30-5.90) L 03/11/19 05:22 Hgb 10.2 gm/dL (13.0-17.5) L 03/11/19 05:22 Hct 34.2 % (39.0-53.0) L 03/11/19 05:22 MCV 92.1 fL (80.0-100.0) 03/11/19 05:22 MCH 27.4 pg (25.0-35.0) 03/11/19 05:22 MCHC 29.8 g/dL (31.0-37.0) L 03/11/19 05:22 RDW 14.5 % (11.5-15.5) 03/11/19 05:22 Plt Count 217 k/uL (150-450) 03/11/19 05:22 Neutrophils % 81 % 03/11/19 05:22 Lymphocytes % 8 % 03/11/19 05:22 Monocytes % 6 % 03/11/19 05:22 Eosinophils % 3 % 03/11/19 05:22 Basophils % 1 % 03/11/19 05:22 Neutrophils # 9.2 k/uL (1.3-7.7) H 03/11/19 05:22 Lymphocytes # 0.9 k/uL (1.0-4.8) L 03/11/19 05:22 Monocytes # 0.7 k/uL (0-1.0) 03/11/19 05:22 Eosinophils # 0.4 k/uL (0-0.7) 03/11/19 05:22 Basophils # 0.1 k/uL (0-0.2) 03/11/19 05:22 Hypochromasia Slight 03/11/19 05:22 Anisocytosis Slight 03/01/19 15:07 PT 11.1 sec (9.0-12.0) 03/10/19 10:35 INR 1.0 (<1.2) 03/10/19 10:35 APTT 53.7 sec (22.0-30.0) H 03/02/19 21:57 Sample Site cara 03/11/19 14:09 ABG pH 7.51 (7.35-7.45) H 03/11/19 14:09 ABG pCO2 40 mmHg (35-45) 03/11/19 14:09 ABG pO2 99 mmHg (83-108) 03/11/19 14:09 ABG HCO3 32 mmol/L (21-25) H 03/11/19 14:09 ABG Total CO2 33 mmol/L (19-24) H 03/11/19 14:09 ABG O2 Saturation 97.8 % (94-97) H 03/11/19 14:09 ABG Base Excess 8.7 mmol/L 03/11/19 14:09 Manuel Test no 03/11/19 14:09 FiO2 35 % 03/11/19 14:09 Sodium 148 mmol/L (137-145) H 03/11/19 05:22 Potassium 3.6 mmol/L (3.5-5.1) 03/11/19 05:22 Chloride 109 mmol/L (98-107) H 03/11/19 05:22 Carbon Dioxide 30 mmol/L (22-30) 03/11/19 05:22 Anion Gap 9 mmol/L 03/11/19 05:22 BUN 51 mg/dL (9-20) H 03/11/19 05:22 Creatinine 1.84 mg/dL (0.66-1.25) H 03/11/19 05:22 Est GFR (CKD-EPI)AfAm 42 (>60 ml/min/1.73 sqM) 03/11/19 05:22 Est GFR (CKD-EPI)NonAf 36 (>60 ml/min/1.73 sqM) 03/11/19 05:22 Glucose 148 mg/dL (74-99) H 03/11/19 05:22 POC Glucose (mg/dL) 122 mg/dL (75-99) H 03/11/19 19:21 POC Glu Circulating Process Inspector ID Suze [email or web address] 03/11/19 19:21 Plasma Lactic Acid [place] 1.2 mmol/L (0.7-2.0) 03/06/19 10:10 Calcium 8.8 mg/dL (8.4-10.2) 03/11/19 05:22 Phosphorus 3.8 mg/dL (2.5-4.5) 03/09/19 04:30 Magnesium 2.3 mg/dL (1.6-2.3) 03/09/19 04:30 Total Bilirubin 0.9 mg/dL (0.2-1.3) 03/01/19 15:07 AST 55 U/L (17-59) 03/01/19 15:07 ALT 60 U/L (21-72) 03/01/19 15:07 Alkaline Phosphatase 154 U/L (38-126) H 03/01/19 15:07 Troponin I 1.080 ng/mL (0.000-0.034) H* 03/02/19 04:09 NT-Pro-B Natriuret Pep 06963 pg/mL 03/01/19 15:07 Total Protein 6.8 g/dL (6.3-8.2) 03/01/19 15:07 Albumin 3.4 g/dL (3.5-5.0) L 03/01/19 15:07 Triglycerides 105 mg/dL (<150) 03/02/19 04:09 Cholesterol 188 mg/dL (<200) 03/02/19 04:09 LDL Cholesterol, Calc 148 mg/dL (0-99) H 03/02/19 04:09 HDL Cholesterol 19 mg/dL (40-60) L 03/02/19 04:09 TSH 3.570 mIU/L (0.465-4.680) 03/04/19 02:17 Urine Color Yellow 03/04/19 23:09 Urine Appearance Clear (Clear) 03/04/19 23:09 Urine pH 5.0 (5.0-8.0) 03/04/19 23:09 Ur Specific [place] 1.013 (1.001-1.035) 03/04/19 23:09 Urine Protein Trace (Negative) H 03/04/19 23:09 Urine Glucose (UA) Negative (Negative) 03/04/19 23:09 Urine Ketones Negative (Negative) 03/04/19 23:09 Urine Blood Negative (Negative) 03/04/19 23:09 Urine Nitrite Negative (Negative) 03/04/19 23:09 Urine Bilirubin Negative (Negative) 03/04/19 23:09 Urine Urobilinogen <2.0 mg/dL (<2.0) 03/04/19 23:09 Ur Leukocyte Esterase Negative (Negative) 03/04/19 23:09 Microbiology 03/10/19 12:00 Blood Blood Culture - Preliminary No Growth after 24 hours 03/09/19 09:44 Blood Blood Culture - Preliminary No Growth after 48 hours 03/08/19 08:46 Blood Blood Culture Gram Stain - Final 03/08/19 08:46 Blood Blood Culture - Final Enterococcus faecalis 03/08/19 07:30 Blood Blood Culture Gram Stain - Final 03/08/19 07:30 Blood Blood Culture - Final Enterococcus faecalis 03/04/19 18:31 Blood Blood Culture Gram Stain - Final 03/04/19 18:31 Blood Blood Culture - Final Enterococcus faecalis 03/06/19 09:55 Blood Blood Culture Gram Stain - Final 03/06/19 09:55 Blood Blood Culture - Final Enterococcus faecalis 03/06/19 10:10 Blood Blood Culture Gram Stain - Final 03/06/19 10:10 Blood Blood Culture - Final Enterococcus faecalis 03/06/19 02:42 Blood Blood Culture Gram Stain - Final 03/06/19 02:42 Blood Blood Culture - Final Enterococcus faecalis 03/08/19 07:30 Blood Blood Culture - Final 03/08/19 08:46 Blood Blood Culture - Final 03/06/19 11:12 Sputum Gram Stain - Final 03/06/19 11:12 Sputum Sputum Culture - Final 03/05/19 17:44 Blood Blood Culture Gram Stain - Final 03/05/19 17:44 Blood Blood Culture - Final Enterococcus faecalis 03/06/19 10:10 Blood Blood Culture - Final 03/06/19 09:55 Blood Blood Culture - Final 03/05/19 17:44 Blood Blood Culture - Final 03/06/19 02:42 Blood Blood Culture - Final 03/04/19 18:31 Blood Blood Culture - Final Assessment and Plan (1) Acute on chronic systolic CHF (congestive heart failure) Current Visit: Yes Status: Acute Code(s): I50.23 - ACUTE ON CHRONIC SYSTOLIC (CONGESTIVE) HEART FAILURE SNOMED Code(s): 290400849 (2) Cardiomyopathy Current Visit: Yes Status: Acute Code(s): I42.9 - CARDIOMYOPATHY, UNSPECIFIED SNOMED Code(s): 30043746 (3) Prosthetic valve endocarditis Narrative/Plan: 73-year-old gentleman with aortic valve replacement and prior CABG presented to Hospital and some he in worsening of his ischemic cardiomyopathy. He underwent biventricular ICD implantable pacemaker March 05. The he developed a fever and there are now positive blood cultures. The laboratory has identified enterococcus in the blood cultures. There is no specific other site of infection at this time other than the bacteremia. With aortic valve replacement concerns underlying endocarditis. Consequently antimicrobial therapy is transitioned to ampicillin sulbactam and gentamicin in synergistic dosing dosed by the pharmacy. Aware of his renal insufficiency however until bacteremia clears and there is a definitive alternative cause of the bacteremia would require gentamicin therapy for synergy. Follow blood cultures are requested. The patient has had central line and A-line just placed by the deicer repairer electric. He is receiving fluid resuscitation and vasopressor therapy. 03/09/2019 the patient has had a LISSET performed today which verifies evidence of vegetation on the bioprosthetic aortic valve. The patient has many positive blood cultures. Enterococcus has been isolated. The patient has evidence of gentamicin synergy resistance. Gentamicin was discontinued. With this finding ceftriaxone is added to the Unasyn in attempts for synergy. Follow blood cultures will be obtained. The patient's renal failure is improving. He seemingly more stable. Hopefully he will now start to have evidence of clearance of his bacteremia with the synergistic combination. 03/10/2019 Patient remains intubated sedated and ventilated however is decreased therapy. The patient's itching with Unasyn and Rocephin for the enterococcus endocarditis verified with a LISSET yesterday. Cardiology is following. 03/11/2019 patient has improved and will have further weaning trial tomorrow. The blood cultures are now negative over 48 hours, having a good response to antibiotic therapy. The synergistic therapy is now showing response and will continue for 6 weeks. Current Visit: Yes Status: Acute Code(s): T82.6XXA - INFECT/INFLM REACTION DUE TO CARDIAC VALVE PROSTHESIS, INIT; I38 - ENDOCARDITIS, VALVE UNSPECIFIED SNOMED Code(s): 319311709
--- NOTE | 2019-03-11 23:17 | PN ---
PROGRESS NOTE Mr. Tiwari is a gentleman with what seems to be prosthetic valve endocarditis. He is on antibiotics. Hemodynamically more stable. I will discontinue his Cardizem since the rate is better controlled and he is using his pacemaker. He is still making urine. Hemodynamically appears to be stable relatively. S1-S2 heard normally. Short systolic murmur is audible. Lungs reveal bilateral diminished air entry. Abdomen and lower extremity exam is unchanged. The patient remains intubated. Prognosis remains poor. We will continue antibiotics for now. MMODL / IJN: [id number] /
[2019-03-11 23:57] LABS: Glucose,Whole Blood 134 mg/dL (75-99)
[2019-03-12] MEDS: PROPOFOL 1,000 MG in EMPTY BAG 1 BAG IV SCH ×3 (00:10→08:50)
[2019-03-12] MEDS: HYDROmorphone 1 MG/ML 1 ML SYRINGE IVP PRN ×2 (01:45→23:32)
[2019-03-12] MEDS: AMPICILLIN-SULBACTAM 3 GM in SODIUM CHLORIDE 0.9% 100 ML IVPB SCH ×4 (02:50→21:16)
[2019-03-12] MEDS: NOREPINEPHRINE 4 MG in SODIUM CHLORIDE 0.9% 250 ML IV SCH ×2 (04:37→14:03)
[2019-03-12 05:41] LABS: Glucose,Whole Blood 143 mg/dL (75-99)
[2019-03-12 05:42] LABS: Basophils # (A) 0.2 k/uL (0-0.2); Basophils % (A) 2 %; Eosinophils # (A) 0.4 k/uL (0-0.7); Eosinophils % (A) 4 %; HGB 10.1 gm/dL (13.0-17.5); Hypochromasia Moderate; Lymphocytes # (A) 0.9 k/uL (1.0-4.8); Lymphocytes % (A) 9 %; MCH 27.6 pg (25.0-35.0); MCHC 29.7 g/dL (31.0-37.0); MCV 92.9 fL (80.0-100.0); Mean Platelet Volume 8.9; Monocytes # (A) 0.5 k/uL (0-1.0); Monocytes % (A) 5 %; Neutrophils % (A) 78 %; Platelet Count 233 k/uL (150-450); RBC 3.66 m/uL (4.30-5.90); RDW 14.5 % (11.5-15.5); WBC 10.2 k/uL (3.8-10.6)
[2019-03-12] MEDS: INSULIN ASPART (NovoLOG) 100 UNIT/ML VIAL SQ SCH ×4 (05:45→17:45)
[2019-03-12 06:11] LABS: Calcium 8.7 mg/dL (8.4-10.2); Potassium 3.7 mmol/L (3.5-5.1)
[2019-03-12] MEDS ORDERED: POTASSIUM BICARBONATE/CIT AC 20 MEQ TABLET.EFF NG-TUBE SCH (07:00)
[2019-03-12] MEDS: IPRATROPIUM 0.5 MG/2.5 ML NEBU INHALATION SCH ×4 (07:32→19:39)
[2019-03-12 07:38] LABS: ABG Base Excess 9.9 mmol/L; ABG HCO3 33 mmol/L (21-25); ABG Oxygen Saturation 95.4 % (94-97); ABG PCO2 45 mmHg (35-45); ABG PH 7.48 (7.35-7.45); ABG PO2 77 mmHg (83-108); ABG TCO2 35 mmol/L (19-24)
--- NOTE | 2019-03-12 07:39 | XR ---
EXAMINATION TYPE: XR chest 1V portable DATE OF EXAM: 03/12/2019 COMPARISON: 03/11/2019 HISTORY: Shortness of breath TECHNIQUE: Single frontal view of the chest is obtained. FINDINGS: Cardiomediastinal silhouette is enlarged. There is a left basilar consolidation with layer ing pleural effusion. There is unchanged from the prior. Minimal pulmonary vascular congestion remain s. Post CABG changes of the chest and multilead left-sided cardiac device are present. Endotracheal a nd enteric tube are overall similar in placement to the prior. No acute osseous pathology. IMPRESSION: Overall unchanged exam from the prior. Redemonstration of a small left pleural effusion a nd left basilar airspace disease, likely atelectasis. Minimal pulmonary vascular congestion likely on the basis of congestive heart failure.
[2019-03-12] MEDS: HEPARIN SODIUM,PORCINE 5,000 UNIT/ML 1 ML VIAL SQ SCH ×2 (08:49→21:16)
[2019-03-12] MEDS: ASPIRIN 81 MG PO SCH (08:49)
[2019-03-12] MEDS: FUROSEMIDE 10 MG/ML 4 ML VIAL IV SCH ×2 (08:49→21:16)
[2019-03-12] MEDS: CHLORHEXIDINE GLUCONATE 15 ML CUP MUCOUS MEM SCH (08:49)
[2019-03-12] MEDS: PANTOPRAZOLE 40 MG/10 ML VIAL IVP SCH (08:49)
[2019-03-12] MEDS: ATORVASTATIN 40 MG TAB PO SCH (08:50)
[2019-03-12] MEDS ORDERED: METOPROLOL TARTRATE 50 MG TAB PO SCH (09:00)
--- NOTE | 2019-03-12 09:11 | PN ---
PROGRESS NOTE Mr. Tiwari is in underlying atrial fib with a paced rhythm. He is doing well. hemodynamically, he is more stable, making urine. His last two sets of blood cultures have been negative. I am recommending that we can discontinue the Cardizem drip for this patient and increase metoprolol to 50 mg b.i.d. Vitals are stable. There is no JVD. S1-S2 heard normally, short systolic murmur noted. Lungs reveal diminished air entry. Abdomen and lower extremity exam otherwise is unchanged. MMODL / IJN: [id number] /
[2019-03-12] MEDS ORDERED: DEXMEDETOMIDINE/0.9% NACL(PMX) 400 MCG in EMPTY BAG 1 BAG IV SCH (10:13)
[2019-03-12 11:17] LABS: Glucose,Whole Blood 120 mg/dL (75-99)
--- NOTE | 2019-03-12 11:23 | P.PN ---
Subjective This is a pleasant 73 years old male with past medical history of coronary artery disease patient , , heart failure, asthma, GERD, hyperlipidemia, h ypertension, osteoarthritis, valvular heart disease. Patient was admitted with non-STEMI, he underwent cardiac cath on 03/03/2019, showing patent stents and coronaries. Also patient underwent elective EP study yesterday and status post AICD placement, patient is currently in the ICU intubated and could not provide information, he was extubated for short time before he needed reintubation. Information was taken from the staff at the medical records as patient cannot contribute to history . He has low ejection fraction 20-25%. Patient is obese and he needed low dose of pressors. He has distended abdomen, possibly from fat. No focal neurological findings. Also he has positive blood culture with enterococcus and trending up leukocytes. Infectious disease was consulted, patient is currently on Zosyn. Also patient creatinine is trending up however patient is making reasonable urine output, he was on Lasix drip but this was stopped. 03/07/2019 Patient in the ICU intubated and sedated, his vitals with blood pressure 130/54, and he is saturating 98%. His WBC is back to normal at 10.5. Creatinine is at 2.14 with slight improvement down from 2.6 yesterday. He has several blood culture positive for enterococcus. Chest x-ray showing no significant change. Patient has been evaluated by court stenographer and java systems analyst, java systems analyst considering LISSET if blood culture remains positive. Patient also was started on gentamicin and Unasyn as per infectious disease recommendation 03/08/2019 Patient remains in the ICU, he still intubated and sedated. Blood pressure 108/52, saturating 96%, heart rate is 70. K, hemoglobin is stable at 10.4, platelets are within normal limits. Creatinine is improving gradually down to 1.7, electrolytes included sodium and potassium are within normal limits, sugar is running between 129-155. Magnesium is elevated at 2.5,. He has several bloo d culture that's positive for group D enterococcus faecalis, cardiology R following the case and the plan is for transesophageal echocardiogram tomorrow to rule out endocarditis 03/09/2019 Patient is ICU intubated and sedated, patient is planned to go for transesophageal echocardiogram today to rule out endocarditis in view of his persistent bacteremia/septicemia. Patient remains currently on Unasyn. Patient is slightly bradycardic at 57-60, he had low-grade temperature yesterday of 100.2, blood pressure 102/58, lap showing mild leukocytosis of 12.3 K, hemoglobin is stable. Creatinine is improving to 1.75. ABGs showed pH of 7.4, pCO2 42 which are within normal limits, pO2 is 120. Repeat blood cultures are pending, repeat chest x-ray from today showing fluid overload with interstitial edema with possible atelectasis. 03/10/2019 Patient remains in the ICU intubated and sedated, yesterday he had a LISSET which showing low ejection fraction around 20% with agitation note dictated on the aortic valve. Also patient noted to bleed easily given from subcutaneous injection site, currently is on subcu heparin to 8 which is lower to every 12 this morning, he is also on aspirin and Plavix, platelets are normal. We don't to check PT and INR and PTT today. Last night patient was started on Cardizem drip for better control of his blood pressure and heart rate and blood pressure. Patient is followed closely by cardiology and rectal care team. Prognosis is extremely poor 03/11/2019 Patient remains in the ICU, he is intubated and sedated. Patient failed weaning trials today by the pulmonary team. Patient is still tachycardic and he was started on Cardizem drip today, blood pressure 111/66. mild leukocytosis of 11.4 k, hemoglobin 10.2, sodium is 148, creatinine 1.8, compared to 1.7 yesterday. repeat blood cultures still shown enterococcus. the patient remains on unasyn and ceftriaxone currently with infectious disease followed the case closely. patient is following closely by cardiology and pulmonary/critical care team. prognosis remains guarded 03/12/2019 Patient remains in the ICU in critical condition, he is intubated and sedated however he is undergoing wound and a trial which has been failed previously. Blood pressure on the low side 66/38, wbc of 10.2 k, hemoglobin 10.1. his creatinine is stable at 1.7, high sodium on 148. Sugar is controlled at the r bo of 120-143. Repeat blood culture from 03/10 and 03/09 still pending which shows no growth so far. Repeat chest x-ray showed stable findings. His been followed closely by several consultants including cardiology, critical care and infectious disease recommended to continue with Unasyn and ceftriaxone for 6 weeks. Hypernatremia Review of systems: N/a Active Medications Generic Name Dose Route Start Last Admin Trade Name Freq PRN Reason Stop Dose Admin Acetaminophen 650 mg 03/05/19 18:53 Tylenol Tab PO Q6HR PRN Mild Pain Albuterol Sulfate 2.5 mg 03/01/19 20:10 03/06/19 15:31 Ventolin Nebulized INHALATION 2.5 mg Q4H PRN Administration sob Allopurinol 100 mg 03/01/19 20:10 Zyloprim PO HS PRN gout Aspirin 81 mg 03/09/19 09:00 03/12/19 08:49 Aspirin PO 81 mg DAILY DEANDRA Administration Atorvastatin Calcium 40 mg 03/09/19 09:00 03/12/19 08:50 Lipitor PO 40 mg DAILY DEANDRA Administration Bisacodyl 10 mg 03/01/19 20:12 Dulcolax PO DAILY PRN Constipation Chlorhexidine Gluconate 15 ml 03/06/19 09:00 03/12/19 08:49 Peridex MUCOUS MEM 15 ml BID DEANDRA Administration Clopidogrel Bisulfate 75 mg 03/01/19 21:00 03/11/19 20:46 Plavix PO 75 mg HS DEANDRA Administration Furosemide 40 mg 03/08/19 21:00 03/12/19 08:49 Lasix IV 40 mg Q12HR DEANDRA Administration Heparin Sodium (Porcine) 5,000 unit 03/10/19 21:00 03/12/19 08:49 Heparin SQ 5,000 unit Q12HR DEANDRA Administration Hydromorphone HCl 1 mg 03/08/19 15:04 03/12/19 01:45 Dilaudid IVP 1 mg Q3H PRN Administration Pain Propofol 1,000 mg/ IV Solution 100 mls @ 0 mls/hr 03/05/19 22:30 03/12/19 08:50 IV 03/12/19 12:00 20 mcg/kg/min .Q0M DEANDRA 14.268 mls/hr Administration Protocol Titrate Norepinephrine Bitartrate 4 mg 254 mls @ 22.479 mls/hr 03/05/19 23:45 03/12/19 04:37 / Sodium Chloride IV Not Given .[id number] DEANDRA Protocol 0.05 MCG/KG/MIN Ampicillin Sodium/Sulbactam 100 mls @ 200 mls/hr 03/08/19 14:00 03/12/19 08:28 Sodium 3 gm/ Sodium Chloride IVPB 200 mls/hr Q6H DEANDRA Administration Ceftriaxone Sodium 2 gm/ 50 mls @ 100 mls/hr 03/09/19 17:00 03/12/19 09:14 Sodium Chloride IVPB 100 mls/hr Q24HR DEANDRA Administration Dexmedetomidine HCl 400 mcg/ 100 mls @ 0 mls/hr 03/12/19 10:13 03/12/19 10:43 IV Solution IV 03/13/19 10:13 0.5 mcg/kg/hr .Q0M DEANDRA 14.863 mls/hr Administration Protocol Titrate Insulin Aspart 0 unit 03/07/19 06:00 03/12/19 05:45 Novolog SQ 1 unit Q6H DEANDRA Administration Protocol Ipratropium Mercedes 0.5 mg 03/02/19 08:00 03/12/19 11:15 Atrovent Nebulized INHALATION 0.5 mg RT-QID DEANDRA Administration Metoprolol Tartrate 50 mg 03/12/19 09:00 03/12/19 08:50 Lopressor PO 50 mg BID DEANDRA Administration Miscellaneous Information 1 each 03/11/19 14:10 Potassium Per Protocol MISCELLANE DAILY PRN Per Protocol Protocol Nitroglycerin 0.4 mg 03/01/19 16:04 Nitrostat SUBLINGUAL Q5M PRN Chest Pain Pantoprazole Sodium 40 mg 03/09/19 09:00 03/12/19 08:49 Protonix IVP 40 mg DAILY DEANDRA Administration Sodium Chloride 10 ml 03/05/19 21:00 03/12/19 08:51 Saline Flush IV 10 ml Q12HR DEANDRA Administration Objective - Vital Signs Vital signs: Vital Signs Temp 99.5 F 03/12/19 09:00 Pulse 77 03/12/19 11:00 Resp 20 03/12/19 11:00 BP 67/46 03/12/19 11:00 Pulse Ox 85 L 03/12/19 11:00 Intake & Output 03/11/19 03/12/19 03/12/19 18:59 06:59 18:59 Intake Total 3035.472 7375.620 632.39 Output Total 1540 1435 615 Balance -333.086 90.620 17.39 Weight 118.9 kg Intake: IV 340 320 160 Ampicillin-Sulbactam 3 gm 100 100 100 In Sodium Chloride 0.9% 100 ml @ 200 mls/hr IVPB Q6H DEANDRA Rx#:[id number] KVO 240 220 60 Intake, IV Titration 346.914 281.620 112.39 Amount Ampicillin-Sulbactam 3 gm 100 100 In Sodium Chloride 0.9% 100 ml @ 200 mls/hr IVPB Q6H DEANDRA Rx#:[id number] Propofol 1,000 mg In 196.914 181.620 62.39 Empty Bag 1 bag @ Titrate IV .Q0M DEANDRA Rx#: [id number] cefTRIAXone 2 gm In 50 50 Sodium Chloride 0.9% 50 ml @ 100 mls/hr IVPB Q24HR DEANDRA Rx#:[id number] Tube Feeding 520 624 260 Other 300 100 Output: Urine 1540 1435 615 Other: Voiding Method Indwelling Catheter Indwelling Catheter Indwelling Catheter # Voids 2 ABP, PAP, CO, CI - Last Documented Arterial Blood Pressure 66/38 - Exam -GENERAL: The patient is intubated and sedated HEENT: Pupils are round and equally reacting to light. EOMI. No scleral icterus. No conjunctival pallor. Normocephalic, atraumatic. No pharyngeal erythema. No thyromegaly. CARDIOVASCULAR: S1 and S2 present. No murmurs, rubs, or gallops. PULMONARY: Chest is clear to auscultation, no wheezing or crackles. ABDOMEN: Soft, nontender, nondistended, normoactive bowel sounds. No palpable organomegaly. MUSCULOSKELETAL: No joint swelling or deformity. EXTREMITIES: No cyanosis, clubbing, or pedal edema. NEUROLOGICAL: Gross neurological examination did not reveal any focal deficits. SKIN: No rashes. no petechiae. - Labs CBC & Chem 7: 03/12/19 05:20 03/12/19 05:20 Labs: Abnormal Lab Results - Last 24 Hours (Table) 03/11/19 03/11/19 03/11/19 Range/Units 11:39 14:09 18:08 RBC (4.30-5.90) m/uL Hgb (13.0-17.5) gm/dL Hct (39.0-53.0) % MCHC (31.0-37.0) g/dL Neutrophils # (1.3-7.7) k/uL Lymphocytes # (1.0-4.8) k/uL ABG pH 7.51 H (7.35-7.45) ABG pO2 (83-108) mmHg ABG HCO3 32 H (21-25) mmol/L ABG Total CO2 33 H (19-24) mmol/L ABG O2 Saturation 97.8 H (94-97) % Sodium (137-145) mmol/L Chloride (98-107) mmol/L Carbon Dioxide (22-30) mmol/L BUN (9-20) mg/dL Creatinine (0.66-1.25) mg/dL Glucose (74-99) mg/dL POC Glucose (mg/dL) 139 H 140 H (75-99) mg/dL 03/11/19 03/11/19 03/12/19 Range/Units 19:21 23:53 05:20 RBC 3.66 L (4.30-5.90) m/uL Hgb 10.1 L (13.0-17.5) gm/dL Hct 34.0 L (39.0-53.0) % MCHC 29.7 L (31.0-37.0) g/dL Neutrophils # 8.0 H (1.3-7.7) k/uL Lymphocytes # 0.9 L (1.0-4.8) k/uL ABG pH (7.35-7.45) ABG pO2 (83-108) mmHg ABG HCO3 (21-25) mmol/L ABG Total CO2 (19-24) mmol/L ABG O2 Saturation (94-97) % Sodium (137-145) mmol/L Chloride (98-107) mmol/L Carbon Dioxide (22-30) mmol/L BUN (9-20) mg/dL Creatinine (0.66-1.25) mg/dL Glucose (74-99) mg/dL POC Glucose (mg/dL) 122 H 134 H (75-99) mg/dL 03/12/19 03/12/19 03/12/19 Range/Units 05:20 05:37 07:33 RBC (4.30-5.90) m/uL Hgb (13.0-17.5) gm/dL Hct (39.0-53.0) % MCHC (31.0-37.0) g/dL Neutrophils # (1.3-7.7) k/uL Lymphocytes # (1.0-4.8) k/uL ABG pH 7.48 H (7.35-7.45) ABG pO2 77 L (83-108) mmHg ABG HCO3 33 H (21-25) mmol/L ABG Total CO2 35 H (19-24) mmol/L ABG O2 Saturation (94-97) % Sodium 148 H (137-145) mmol/L Chloride 109 H (98-107) mmol/L Carbon Dioxide 34 H (22-30) mmol/L BUN 61 H (9-20) mg/dL Creatinine 1.78 H (0.66-1.25) mg/dL Glucose 145 H (74-99) mg/dL POC Glucose (mg/dL) 143 H (75-99) mg/dL Microbiology - Last 24 Hours (Table) 03/10/19 12:00 Blood Culture - Preliminary Blood No Growth after 24 hours 03/09/19 09:44 Blood Culture - Preliminary Blood No Growth after 48 hours 03/08/19 08:46 Blood Culture Gram Stain - Final Blood Blood Culture - Final Enterococcus faecalis Assessment and Plan Assessment: Cardiogenic shock Acute on chronic systolic congestive heart failure with ejection fraction 20- 25%, on the top of history of severe ischemic cardiomyopathy. 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 Continue with antibiotics as per infectious disease recommendation, for 6 more weeks and currently he is on Unasyn and Lasix, follow-up final culture results. Patient remains intubated and measures by critical care team. Weaning trial as per pulmonary/critical team. Patient is on Lasix. . Follow-up cardiology recommendations. Follow-up WBC and creatinine.Labs and medication were reviewed. Nephrology consult for renal disease. Continue same treatment. Continue with symptomatic treatment. Resume home medication. Monitor lytes and vitals. DVT and GI prophylaxis. Further recommendations of the clinical course of the patient DVT prophylaxis: Subcutaneous heparin GI Prophylaxis: Protonix Prognosis is extremely poor and guarded
--- NOTE | 2019-03-12 13:42 | P.PN ---
Subjective Progress Note Date: 03/12/19 Principal diagnosis: Acute hypoxic respiratory failure secondary to cardiogenic shock, and septic shock. Acute endocarditis. This is a 71-year-old male patient with known history of ischemic cardiomyopathy along with known history of coronary artery disease and previous aortic valve replacement, AVR, and previous coronary artery bypass surgery, who presented to the hospital because of chest pain and non-STEMI. The patient has had previous catheterizations with stenting done in the distal left main as well as the proximal circumflex. He has a chronically totally occluded RCA. As mentioned, the patient was admitted with chest pain or shortness of breath and acute non-S RAFAELA. The patient underwent another cardiac catheterization and the patient was found to have taken stent to the distal left mainstem to proximal circumflex, patent BELTRAN to LAD, chronic totally occluded RCA. Recommendations were mainly to maximize medical management. The patient was being treated for congestion heart failure. He was receiving Lasix drip and he was having ongoing orthopnea. He was taken yesterday to the [facility] and the patient was given biventricular pacing/AICD. Noted postop, the patient was extubated. He became short of breath and went into significant amount of respiratory distress and within 10 minutes she had to be reintubated. He was brought into the intensive care unit intubated on a mechanical ventilator. Initial blood gases showed a pH of 7.28 with a pCO2 of 51 and pO2 of 234. Necessary vent changes were done. The most recent blood gas showed a pH of 7.48 with a pCO2 of 28 and pO2 of 229. The morning vent settings include a tidal volume 400 with a rate of 18 and FiO2 of 40% with 5. The setting was adjusted based on the most recent blood gas. I n oted that the patient is also on pressors and overnight the patient has required norepinephrine infusion and currently is running at 0.1 mcg/kg per minute. The patient is also on Lasix drip at 10 mg an hour. He is producing urine output. However, the patient has developed an acute kidney injury. Creatinine was normal at the time of admission on 02/27/2019 and there has been progressive rise in the creatinine which is up to 2.6 at this point in time. He was he was developing fevers with a temperature 11.6 on 03/04/2019. The patient has blood culture sent a blood culture came back positive for enterococcus group D. The patient was on cefazolin. IV Zosyn was added by the primary care team. This morning, the patient is sedated with propofol is currently running at 50 mics. His, comfortable. He is producing urine output. Her net fluid balance is -642 mL for yesterday. His cardiac rhythm is paced. His white cell count is 19.4. He is obviously septic condition with a positive blood culture. UA the time of admission was negative. He has a Diaz catheter in place. Abdomen is soft. His umbilical hernia. Surgical wound site over the left biventricular pacemaker is dry clean and intact. No significant orotracheal secretions. Chest x-ray from today shows cardiomegaly and lower lobe consolidation as the patient is a left lower lobe consolidation of the right upper lobe! The echocardiogram at shown an ejection fraction of 20-25%. There is moderate concentric left adela tricular hypertrophy. There is severe global hypokinesis. No pericardial effusion. The peak gradient across the aortic valve was 35 mmHg. It is a normal functioning bioprosthetic valve. There is moderate mitral regurgitation. Mild pulmonary hypertension. on 03/07/2019 the patient remains sedated and intubated on mechanical ventilator. The patient is on propofol for sedation. The patient is also on a mechanical ventilator on assist control mode with a tidal volume of 000 and the rate of 18 with an FiO2 of 40% and PEEP of 5. The chest x-ray from today shows stable findings and there is left lower lobe consolidation/effusion. ET tube is in a good location. The left ear showed a pH of 7.44 with a pCO2 of 34 and pO2 of 131. Based on this, there is a component of respiratory alkalosis and I dropped a respiratory rate down to 14. The telephone was kept at 500 for now. I took this patient off the Lasix therapy yesterday as the patient's CVP was running low and the patient was also developing acute kidney injury. Today CVP is also low measuring as high as 4-5 millimeters of mercury. Based on that, the patient was started on oral Lasix set of IV Lasix for cardiology. He is p roducing adequate amount of urine output. Creatinine is also improving and is down to 2.1. The patient is afebrile. The patient was seen by infectious disease. Antibiotic adjustments were done and the patient was placed on a combination of Unasyn and gentamicin. No clear indication for endocarditis. The patient has 3 positive blood culture that was positive for E faecalis, in the patient was simplified back to Unasyn and gentamicin was discontinued as the patient was found to be having a Enterococcus faecalis resistant to gentamicin.. The patient is producing adequate amount of urine output. He is still on pressors and the present doses been weaned down to 0.07 micrograms per kilogram per minute of norepinephrine infusion. The patient will be started on enteral feeding for nutritional support. Cardiology is on the case. Cardiac rhythm remains paced. No significant electrolyte imbalance in the patient's white cell count is down to 10.5. 03/08/2019, the patient remains intubated on a mechanical ventilator. The patient remains hemodynamically unstable requiring pressors and the norepinephrine infusion is running at 0.08 mcg/kg per minute. He is also on Prinivil at 40 mics per KG. The patient a mechanical ventilator on assist control mode with a tidal volume of 500 and rate of 18 with an FiO2 of 40% and a PEEP of 5. Chest x-ray is unchanged compared to yesterday and there are some white pulmonary vessel congestion. The patient is producing 25 mL of urine output on an hourly basis. Net fluid balance is positive to 11 mL over the past 24 hours. He is currently on oral Lasix. He is also on norepinephrine infusion. He is on enteral feeding for nutritional support. He is receiving before for sedation. Note that all of the blood cultures came back positive for Enterococcus faecalis. The patient remains on IV Unasyn. Follow-up cultures were obtained to make sure there is no ongoing bacteremia. There is a high likely what that it there may be a component of infective endocarditis. The patient will need a LISSET to evaluate this further. His cardiac rhythm is paced. The fibrillator pocket is clean and intact at this point in time. As for his continued kidney injury, the patient's creatinine is improving and the creatinine is down to 1.72. The white cell count is also down to 10.5 and the patient is responding to IV Unasyn for now. Reevaluated today on 03/09/2019, patient remains on mechanical ventilation, he is still on norepinephrine at 0.05 mcg/kg/m, still on propofol at 50 mcg/kg/m. He is on mechanical ventilation, assist control rate of 18, FiO2 is 40%, PEEP of 5. Tidal volume is 500. Transesophageal echocardiogram is suspicious for vegetations involving the aortic bioprosthetic valve there was also evidence of thickened mitral valve leaflets with moderate mitral regurgitation. His LV function was noted to be impaired ejection fraction of 20%. ABG this morning showed a pO2 of 120 pCO2 of 42 pH of 7.42 11 lites are normal renal profile is abnormal with BUN of 42 creatinine of 1.75 WBC count is 12.3 hemoglobin is 10.2. Chest x-ray is suspicious for mild interstitial edema and small bilateral pleural effusions. There is also some retrocardiac atelectasis. Patient is sedated, on mechanical ventilation, I have no plans to wean the patient today since LISSET was scheduled to be done shortly after I evaluated the patient. Patient was reevaluated today on 03/10/2019, remains on mechanical ventilation, his ventilator settings are assist control rate of 14 FiO2 is 40% PEEP is 5 tidal volume is 500. Patient is on Cardizem drip as per cardiology 5 mg per hour, his also on metoprolol, and he is on norepinephrine at 0.05 mcg/kg/m. Propofol is 25 mcg/kg/m. Chest x-ray showed cardiomegaly and prominent pulmonary vasculature with minimal basilar atelectasis. ABG showed a pO2 of 117 pCO2 of 43 pH of 7.45. WBC count is 14.8 hemoglobin is 10.5. Electrolytes are relatively normal. Renal profile showed a BUN of 42 creatinine of 1.70. Patient remains sedated, however I plan to hold his sedation today, and hopefully assess mental status and decide whether we can proceed with any further weaning trials. Family is at bedside and they were updated on his condition and on the fact that he has endocarditis. Antibiotics were addressed by Dr. Nguyễn, patient is now on Unasyn. He also remains on Rocephin. Reevaluated today on 03/11/2019, remains in the ICU on mechanical ventilation. His ventilator settings are assist control rate of 14, tidal volume is 500 FiO2 of 35% PEEP is 5. Remains on propofol at 30 mcg/kg/m, he is off pressors. ABG this morning showed a pO2 of 103 pCO2 of 39 pH of 7.50. Electrolytes are normal however his BUN is 51 creatinine is 1.84. WBC count is 11.4 hemoglobin is 10.2. Patient remains on nutritional support via enteral feeding. Remains on antibiotics for his underlying endocarditis as per infectious disease. Yesterday the patient was given a sedation interruption, and a trial of weaning, however he was extremely agitated, restless, and could not go on to wean or extubated the patient. This would be reattempted again today. Reevaluated today in the ICU on 04/08/2019, patient remains on mechanical ventilation, his ventilator settings are tidal volume of 500 assist control rate of 14 FiO2 35% PEEP of 5. Patient remains on propofol, presently off norepinephrine, patient was given a weaning trial yesterday, however he became extremely tachycardic, and restless agitated. Today I plan to wean the patient slowly on Precedex to be started after stopping propofol. Patient will be awakened and will be given definitely a weaning trial today. Depending on how he does on pressure support and CPAP, may or may not proceed to full extubation. Chest x-ray is showing mild congestive changes. ABG this morning showed a pO2 of 77 pCO2 of 45 pH of 7.48 electrolytes showed elevated sodium of 148 BUN is 61 creatinine 1.78. Bicarb is 34 WBC count is 10.2 hemoglobin is 10.1. Patient remains on antibiotics, not requiring pressors at this point, has been intermittently on and off norepinephrine Objective - Vital Signs Vital signs: Vital Signs Temp 99.1 F 03/12/19 11:45 Pulse 76 03/12/19 12:15 Resp 25 H 03/12/19 12:15 BP 121/72 03/12/19 12:15 Pulse Ox 98 03/12/19 12:15 Intake & Output 03/11/19 03/12/19 03/12/19 18:59 06:59 18:59 Intake Total 4835.312 1000.620 944.922 Output Total 1540 1435 715 Balance -333.086 90.620 229.922 Weight 118.9 kg Intake: IV 340 320 360 Ampicillin-Sulbactam 3 gm 100 100 100 In Sodium Chloride 0.9% 100 ml @ 200 mls/hr IVPB Q6H DEANDRA Rx#:[id number] KVO 240 220 260 Intake, IV Titration 346.914 281.620 224.922 Amount Ampicillin-Sulbactam 3 gm 100 100 In Sodium Chloride 0.9% 100 ml @ 200 mls/hr IVPB Q6H DEANDRA Rx#:[id number] Dexmedetomidine/0.9% NaCl 6.688 (Pmx) 400 mcg In Empty Bag 1 bag @ Titrate IV . Q0M DEANDRA Rx#:[id number] Norepinephrine 4 mg In 74.93 Sodium Chloride 0.9% 250 ml @ 0.05 MCG/KG/MIN 22. 479 mls/hr IV .[id number] DEANDRA Rx#:[id number] Propofol 1,000 mg In 196.914 181.620 93.304 Empty Bag 1 bag @ Titrate IV .Q0M DEANDRA Rx#: [id number] cefTRIAXone 2 gm In 50 50 Sodium Chloride 0.9% 50 ml @ 100 mls/hr IVPB Q24HR DEANDRA Rx#:[id number] Tube Feeding 520 624 260 Other 300 100 Output: Urine 1540 1435 715 Other: Voiding Method Indwelling Catheter Indwelling Catheter Indwelling Catheter # Voids 2 ABP, PAP, CO, CI - Last Documented Arterial Blood Pressure 130/68 - Exam Physical Exam: Revealed a 73-year-old white male, presently on Precedex, off propofol. Still quite sedated, opens eyes to painful stimuli only. Head: Atraumatic, normocephalic. Endotracheal tube is intact and orogastric tube is intact. HEENT:[Neck is supple.] [No neck masses.] [No thyromegaly.] [No JVD.] Moist mucous membranes Chest: Crackles at the bases noted bilaterally, symmetrical chest expansion.] Cardiac Exam: [Normal S1 and S2, no S3 gallop, 2/6 systolic murmur thought the precordium] Abdomen: [Soft, nontender, no megaly, no rebound, no guarding, normal bowel sounds.] Extremities: [No clubbing, no edema, no cyanosis.] Neurological Exam: Cannot be assessed, patient is fully sedated. Psychiatric: Cannot be assessed Lymphatics: No lymphadenopathy. Skin: No rashes - Labs CBC & Chem 7: 03/12/19 05:20 03/12/19 05:20 Labs: Abnormal Lab Results - Last 24 Hours (Table) 03/11/19 03/11/19 03/11/19 Range/Units 14:09 18:08 19:21 RBC (4.30-5.90) m/uL Hgb (13.0-17.5) gm/dL Hct (39.0-53.0) % MCHC (31.0-37.0) g/dL Neutrophils # (1.3-7.7) k/uL Lymphocytes # (1.0-4.8) k/uL ABG pH 7.51 H (7.35-7.45) ABG pO2 (83-108) mmHg ABG HCO3 32 H (21-25) mmol/L ABG Total CO2 33 H (19-24) mmol/L ABG O2 Saturation 97.8 H (94-97) % Sodium (137-145) mmol/L Chloride (98-107) mmol/L Carbon Dioxide (22-30) mmol/L BUN (9-20) mg/dL Creatinine (0.66-1.25) mg/dL Glucose (74-99) mg/dL POC Glucose (mg/dL) 140 H 122 H (75-99) mg/dL 03/11/19 03/12/19 03/12/19 Range/Units 23:53 05:20 05:20 RBC 3.66 L (4.30-5.90) m/uL Hgb 10.1 L (13.0-17.5) gm/dL Hct 34.0 L (39.0-53.0) % MCHC 29.7 L (31.0-37.0) g/dL Neutrophils # 8.0 H (1.3-7.7) k/uL Lymphocytes # 0.9 L (1.0-4.8) k/uL ABG pH (7.35-7.45) ABG pO2 (83-108) mmHg ABG HCO3 (21-25) mmol/L ABG Total CO2 (19-24) mmol/L ABG O2 Saturation (94-97) % Sodium 148 H (137-145) mmol/L Chloride 109 H (98-107) mmol/L Carbon Dioxide 34 H (22-30) mmol/L BUN 61 H (9-20) mg/dL Creatinine 1.78 H (0.66-1.25) mg/dL Glucose 145 H (74-99) mg/dL POC Glucose (mg/dL) 134 H (75-99) mg/dL 03/12/19 03/12/19 03/12/19 Range/Units 05:37 07:33 11:13 RBC (4.30-5.90) m/uL Hgb (13.0-17.5) gm/dL Hct (39.0-53.0) % MCHC (31.0-37.0) g/dL Neutrophils # (1.3-7.7) k/uL Lymphocytes # (1.0-4.8) k/uL ABG pH 7.48 H (7.35-7.45) ABG pO2 77 L (83-108) mmHg ABG HCO3 33 H (21-25) mmol/L ABG Total CO2 35 H (19-24) mmol/L ABG O2 Saturation (94-97) % Sodium (137-145) mmol/L Chloride (98-107) mmol/L Carbon Dioxide (22-30) mmol/L BUN (9-20) mg/dL Creatinine (0.66-1.25) mg/dL Glucose (74-99) mg/dL POC Glucose (mg/dL) 143 H 120 H (75-99) mg/dL Microbiology - Last 24 Hours (Table) 03/09/19 09:44 Blood Culture - Preliminary Blood No Growth after 72 hours 03/10/19 12:00 Blood Culture - Preliminary Blood No Growth after 24 hours Assessment and Plan Assessment: Impression: 1 acute hypoxic respiratory failure secondary to cardiogenic shock and septic shock. 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 3 severe LV dysfunction and cardiomyopathy, ischemic in nature, ejection fr action of 20-25% post-insertion of AICD. 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 6 septic shock secondary to enterococcal infection 7 acute kidney injury secondary to sepsis, ATN, and possibly contrast nephropathy 8 history of underlying COPD, hypertension, hyperlipidemia, obesity, and generalized anxiety disorder. Recommendation: Continue ventilatory support Continue nutritional support Continue antibiotics and/Unasyn and Rocephin Continue GI and DVT prophylaxis Patient will be given a trial of weaning today on pressure support and CPAP, on Precedex and if tolerated, may seriously consider extubating the patient today. In the meantime continue supportive measures as noted above. Discussed his condition with today. Patient remains critically ill. Critical care time is 36 months. Time with Patient: Greater than 30
[2019-03-12 13:49] LABS: ABG Base Excess 9.6 mmol/L; ABG HCO3 33 mmol/L (21-25); ABG Oxygen Saturation 96.7 % (94-97); ABG PCO2 41 mmHg (35-45); ABG PH 7.51 (7.35-7.45); ABG PO2 83 mmHg (83-108); ABG TCO2 34 mmol/L (19-24)
--- NOTE | 2019-03-12 16:52 | PN ---
PROGRESS NOTE The patient is seen for followup for acute kidney injury and volume overload. Currently patient is maintained on IV Lasix. He has also had hypernatremia and is maintained on free water down the feeding tube. Weaning trial did not go too well yesterday secondary to anxiety. The patient will be tried on CPAP again today. PHYSICAL EXAMINATION: This morning, patient was on the vent. He was sedated. Blood pressure was 102/54, heart rate of about 90 per minute. Patient is afebrile. Examination of the heart S1, S2. Examination of the lungs, decreased breath sounds at bases. Abdomen is soft, nontender, distended. Examination of lower extremities shows edema 1+ bilaterally. [employer] exam cannot be performed. The patient is sedated. LABORATORY DATA: Labs show sodium 148, potassium 3.7, BUN 61. Serum creatinine 1.78, calcium 8.7, hemoglobin 10.1. ASSESSMENT: 1. Acute kidney injury, acute tubular necrosis associated with hypotension, sepsis, renal function fairly stable, creatinine staying 1.7-1.8 mg/dL. Patient is being diuresed. I will continue with the Lasix for now. 2. Sepsis with bacteremia from enterococcus faecalis from endocarditis. Repeat blood cultures currently negative. Patient is maintained on ceftriaxone and Unasyn. 3. Hypoxic respiratory failure. 4. Hypernatremia associated with free water deficit, maintain on free water down the feeding tube. 5. Hypokalemia, being replaced. PLAN: Increase free water to 100 mL q.4 hours down the feeding tube. Continue with the IV Lasix for now. Repeat labs in a.m. Avoid nephrotoxic agents. MMODL / IJN: [id number] /
[2019-03-12 17:39] LABS: Glucose,Whole Blood 116 mg/dL (75-99)
[2019-03-12] MEDS: METOPROLOL TARTRATE 50 MG TAB PO SCH ×2 (17:39→21:16)
[2019-03-12] MEDS: CLOPIDOGREL 75 MG TAB PO SCH (21:16)
--- NOTE | 2019-03-12 23:26 | P.PN ---
Subjective Progress Note Date: 03/12/19 This is a 73-year-old male with known history of ischemic cardiomyopathy along with known history of coronary artery disease and previous aortic valve replacement, AVR, and previous coronary artery bypass surgery. He presented on March 01 because of chest pain and found to have non-STEMI. He underwent cardiac catheterization with Dr. Juarez on 03/03 and the patient was found to have patent stent to the distal left mainstem to proximal circumflex, patent BELTRAN to LAD, chronic totally occluded RCA. Recommendations were mainly to maximize medical management. Patient was apparently having runs of V. tach and a consult was added for Dr. Ho. Patient subsequently underwent a biventricular ICD implantation on March 05. Patient was intubated prior to the procedure as apparently he is unable to lay flat for this. He received 700 mL of fluid during procedure. He was extubated last evening for only 3 minutes and was re- intubated. He was given Lasix 40 mg IV push followed by Lasix drip at 10 mg per hour. The Lasix to was discontinued this morning. Patient remains intubated, on sedation and on levo fed. His chest x-ray this morning reveals a right upper lobe pneumonia and probable heart failure. Patient has been running fevers up to 101.6 on evening of 925. White count 20.6, renal function is worsening with a BUN 45 and creatinine 2.6. Urinalysis was clear with nitrate and l eukoesterase negative. Urine output has been on the lower side running about 50 mL per hour or less. Blood culture from 03/04 is group D enterococcus and thus this consult was requested. 03/09/2019 the patient had evidence of isolated enterococcal bacteremia. The case was discussed with cardiology and a LISSET has been performed today which is verified evidence of a vegetation on the bioprosthetic aortic valve. There is no evidence of any ring abscess or of extensive valvular disease. The patient has shown some improvement in that his fever is improved and his leukocytosis is improving. 03/10/2019 patient remains intubated sedated and mechanically ventilated. His oxygen requirements have decreased in with increased dose of beta russell treatment started as some further improvement of his rate and dysrhythmia. He has been seen by cardiovascular surgeon. 03/11/2019 patient had weaning trial not successful to be retried tomorrow. Off of vasopressor therapy and stable. 03/12/2019 patient has had improvement of his status. He is less sedated. He is on CPAP and doing well likely be extubated when he is a bit more awake. Objective - Vital Signs Vital signs: Vital Signs Temp 99.2 F 03/12/19 20:00 Pulse 105 H 03/12/19 23:00 Resp 26 H 03/12/19 23:00 BP 128/90 03/12/19 20:00 Pulse Ox 97 03/12/19 23:00 Intake & Output 03/12/19 03/12/19 03/13/19 06:59 18:59 06:59 Intake Total 7077.866 3981.761 204 Output Total 1435 1315 1350 Balance 90.620 3.761 -1146 Weight 118.9 kg Intake: IV 320 480 204 Ampicillin-Sulbactam 3 gm 100 100 100 In Sodium Chloride 0.9% 100 ml @ 200 mls/hr IVPB Q6H DEANDRA Rx#:[id number] KVO 220 380 80 pressure bag 24 Intake, IV Titration 281.620 274.761 Amount Ampicillin-Sulbactam 3 gm 100 In Sodium Chloride 0.9% 100 ml @ 200 mls/hr IVPB Q6H DEANDRA Rx#:[id number] Dexmedetomidine/0.9% NaCl 7.972 (Pmx) 400 mcg In Empty Bag 1 bag @ Titrate IV . Q0M DEANDRA Rx#:[id number] Norepinephrine 4 mg In 123.485 Sodium Chloride 0.9% 250 ml @ 0.05 MCG/KG/MIN 22. 479 mls/hr IV .[id number] DEANDRA Rx#:[id number] Propofol 1,000 mg In 181.620 93.304 Empty Bag 1 bag @ Titrate IV .Q0M EDANDRA Rx#: [id number] cefTRIAXone 2 gm In 50 Sodium Chloride 0.9% 50 ml @ 100 mls/hr IVPB Q24HR DEANDRA Rx#:[id number] Tube Feeding 624 364 Other 300 200 Output: Urine 1435 1315 1350 Other: Voiding Method Indwelling Catheter Indwelling Catheter Indwelling Catheter # Voids 2 # Bowel Movements 2 ABP, PAP, CO, CI - Last Documented Arterial Blood Pressure 126/75 - Exam Gen: This is a 73-year-old male. He is on ICU bed, intubated and on mechanical ventilation. Patient opens eyes to verbal stimuli and touch. HEENT: Head is atraumatic, normocephalic. Pupils equal, round. Sclerae is anicteric. Conjunctiva pink. Oral mucous membranes are moist. Appears patient is edentulous. ET and gastric tube are in place orally. NECK: Supple. No JVD. No lymphadenopathy. No thyromegaly. LUNGS: Diminished bilaterally. No wheezes or rhonchi. No intercostal retractions. HEART: Regular rate and rhythm. No murmur. There is a dressing over the AICD, left upper chest wall, no drainage. No significant edema around the area. ABDOMEN: Soft. Bowel sounds are present. No masses. No tenderness. No redness under her abdominal fold. Diaz catheter draining clear dmitry urine. EXTREMITIES: Trace bilateral pedal edema. No wounds, no cellulitis noted. Dorsalis pedis 1+ bilaterally. NEUROLOGICAL: Patient is now very little sedation much more interactive - Labs CBC & Chem 7: 03/12/19 05:20 03/12/19 05:20 Labs: Abnormal Lab Results - Last 24 Hours (Table) 03/11/19 03/12/19 03/12/19 Range/Units 23:53 05:20 05:20 RBC 3.66 L (4.30-5.90) m/uL Hgb 10.1 L (13.0-17.5) gm/dL Hct 34.0 L (39.0-53.0) % MCHC 29.7 L (31.0-37.0) g/dL Neutrophils # 8.0 H (1.3-7.7) k/uL Lymphocytes # 0.9 L (1.0-4.8) k/uL ABG pH (7.35-7.45) ABG pO2 (83-108) mmHg ABG HCO3 (21-25) mmol/L ABG Total CO2 (19-24) mmol/L Sodium 148 H (137-145) mmol/L Chloride 109 H (98-107) mmol/L Carbon Dioxide 34 H (22-30) mmol/L BUN 61 H (9-20) mg/dL Creatinine 1.78 H (0.66-1.25) mg/dL Glucose 145 H (74-99) mg/dL POC Glucose (mg/dL) 134 H (75-99) mg/dL 03/12/19 03/12/19 03/12/19 Range/Units 05:37 07:33 11:13 RBC (4.30-5.90) m/uL Hgb (13.0-17.5) gm/dL Hct (39.0-53.0) % MCHC (31.0-37.0) g/dL Neutrophils # (1.3-7.7) k/uL Lymphocytes # (1.0-4.8) k/uL ABG pH 7.48 H (7.35-7.45) ABG pO2 77 L (83-108) mmHg ABG HCO3 33 H (21-25) mmol/L ABG Total CO2 35 H (19-24) mmol/L Sodium (137-145) mmol/L Chloride (98-107) mmol/L Carbon Dioxide (22-30) mmol/L BUN (9-20) mg/dL Creatinine (0.66-1.25) mg/dL Glucose (74-99) mg/dL POC Glucose (mg/dL) 143 H 120 H (75-99) mg/dL 03/12/19 03/12/19 Range/Units 13:45 17:37 RBC (4.30-5.90) m/uL Hgb (13.0-17.5) gm/dL Hct (39.0-53.0) % MCHC (31.0-37.0) g/dL Neutrophils # (1.3-7.7) k/uL Lymphocytes # (1.0-4.8) k/uL ABG pH 7.51 H (7.35-7.45) ABG pO2 (83-108) mmHg ABG HCO3 33 H (21-25) mmol/L ABG Total CO2 34 H (19-24) mmol/L Sodium (137-145) mmol/L Chloride (98-107) mmol/L Carbon Dioxide (22-30) mmol/L BUN (9-20) mg/dL Creatinine (0.66-1.25) mg/dL Glucose (74-99) mg/dL POC Glucose (mg/dL) 116 H (75-99) mg/dL Microbiology - Last 24 Hours (Table) 03/10/19 12:00 Blood Culture - Preliminary Blood No Growth after 48 hours 03/09/19 09:44 Blood Culture - Preliminary Blood No Growth after 72 hours Laboratory Results WBC 10.2 k/uL (3.8-10.6) 03/12/19 05:20 RBC 3.66 m/uL (4.30-5.90) L 03/12/19 05:20 Hgb 10.1 gm/dL (13.0-17.5) L 03/12/19 05:20 Hct 34.0 % (39.0-53.0) L 03/12/19 05:20 MCV 92.9 fL (80.0-100.0) 03/12/19 05:20 MCH 27.6 pg (25.0-35.0) 03/12/19 05:20 MCHC 29.7 g/dL (31.0-37.0) L 03/12/19 05:20 RDW 14.5 % (11.5-15.5) 03/12/19 05:20 Plt Count 233 k/uL (150-450) 03/12/19 05:20 Neutrophils % 78 % 03/12/19 05:20 Lymphocytes % 9 % 03/12/19 05:20 Monocytes % 5 % 03/12/19 05:20 Eosinophils % 4 % 03/12/19 05:20 Basophils % 2 % 03/12/19 05:20 Neutrophils # 8.0 k/uL (1.3-7.7) H 03/12/19 05:20 Lymphocytes # 0.9 k/uL (1.0-4.8) L 03/12/19 05:20 Monocytes # 0.5 k/uL (0-1.0) 03/12/19 05:20 Eosinophils # 0.4 k/uL (0-0.7) 03/12/19 05:20 Basophils # 0.2 k/uL (0-0.2) 03/12/19 05:20 Hypochromasia Moderate 03/12/19 05:20 Anisocytosis Slight 03/01/19 15:07 PT 11.1 sec (9.0-12.0) 03/10/19 10:35 INR 1.0 (<1.2) 03/10/19 10:35 APTT 53.7 sec (22.0-30.0) H 03/02/19 21:57 Sample Site [place] 03/12/19 13:45 ABG pH 7.51 (7.35-7.45) H 03/12/19 13:45 ABG pCO2 41 mmHg (35-45) 03/12/19 13:45 ABG pO2 83 mmHg (83-108) 03/12/19 13:45 ABG HCO3 33 mmol/L (21-25) H 03/12/19 13:45 ABG Total CO2 34 mmol/L (19-24) H 03/12/19 13:45 ABG O2 Saturation 96.7 % (94-97) 03/12/19 13:45 ABG Base Excess 9.6 mmol/L 03/12/19 13:45 Manuel Test na 03/12/19 13:45 FiO2 35 % 03/12/19 13:45 Sodium 148 mmol/L (137-145) H 03/12/19 05:20 Potassium 3.7 mmol/L (3.5-5.1) 03/12/19 05:20 Chloride 109 mmol/L (98-107) H 03/12/19 05:20 Carbon Dioxide 34 mmol/L (22-30) H 03/12/19 05:20 Anion Gap 5 mmol/L 03/12/19 05:20 BUN 61 mg/dL (9-20) H 03/12/19 05:20 Creatinine 1.78 mg/dL (0.66-1.25) H 03/12/19 05:20 Est GFR (CKD-EPI)AfAm 43 (>60 ml/min/1.73 sqM) 03/12/19 05:20 Est GFR (CKD-EPI)NonAf 37 (>60 ml/min/1.73 sqM) 03/12/19 05:20 Glucose 145 mg/dL (74-99) H 03/12/19 05:20 POC Glucose (mg/dL) 116 mg/dL (75-99) H 03/12/19 17:37 POC Glu [place] Buyer ID CesarCaitlyn 03/12/19 17:37 Plasma Lactic Acid [place] 1.2 mmol/L (0.7-2.0) 03/06/19 10:10 Calcium 8.7 mg/dL (8.4-10.2) 03/12/19 05:20 Phosphorus 3.8 mg/dL (2.5-4.5) 03/09/19 04:30 Magnesium 2.3 mg/dL (1.6-2.3) 03/09/19 04:30 Total Bilirubin 0.9 mg/dL (0.2-1.3) 03/01/19 15:07 AST 55 U/L (17-59) 03/01/19 15:07 ALT 60 U/L (21-72) 03/01/19 15:07 Alkaline Phosphatase 154 U/L (38-126) H 03/01/19 15:07 Troponin I 1.080 ng/mL (0.000-0.034) H* 03/02/19 04:09 NT-Pro-B Natriuret Pep 75819 pg/mL 03/01/19 15:07 Total Protein 6.8 g/dL (6.3-8.2) 03/01/19 15:07 Albumin 3.4 g/dL (3.5-5.0) L 03/01/19 15:07 Triglycerides 105 mg/dL (<150) 03/02/19 04:09 Cholesterol 188 mg/dL (<200) 03/02/19 04:09 LDL Cholesterol, Calc 148 mg/dL (0-99) H 03/02/19 04:09 HDL Cholesterol 19 mg/dL (40-60) L 03/02/19 04:09 TSH 3.570 mIU/L (0.465-4.680) 03/04/19 02:17 Urine Color Yellow 03/04/19 23:09 Urine Appearance Clear (Clear) 03/04/19 23:09 Urine pH 5.0 (5.0-8.0) 03/04/19 23:09 Ur Specific [place] 1.013 (1.001-1.035) 03/04/19 23:09 Urine Protein Trace (Negative) H 03/04/19 23:09 Urine Glucose (UA) Negative (Negative) 03/04/19 23:09 Urine Ketones Negative (Negative) 03/04/19 23:09 Urine Blood Negative (Negative) 03/04/19 23:09 Urine Nitrite Negative (Negative) 03/04/19 23:09 Urine Bilirubin Negative (Negative) 03/04/19 23:09 Urine Urobilinogen <2.0 mg/dL (<2.0) 03/04/19 23:09 Ur Leukocyte Esterase Negative (Negative) 03/04/19 23:09 Microbiology 03/10/19 12:00 Blood Blood Culture - Preliminary No Growth after 48 hours 03/09/19 09:44 Blood Blood Culture - Preliminary No Growth after 72 hours 03/08/19 08:46 Blood Blood Culture Gram Stain - Final 03/08/19 08:46 Blood Blood Culture - Final Enterococcus faecalis 03/08/19 07:30 Blood Blood Culture Gram Stain - Final 03/08/19 07:30 Blood Blood Culture - Final Enterococcus faecalis 03/04/19 18:31 Blood Blood Culture Gram Stain - Final 03/04/19 18:31 Blood Blood Culture - Final Enterococcus faecalis 03/06/19 09:55 Blood Blood Culture Gram Stain - Final 03/06/19 09:55 Blood Blood Culture - Final Enterococcus faecalis 03/06/19 10:10 Blood Blood Culture Gram Stain - Final 03/06/19 10:10 Blood Blood Culture - Final Enterococcus faecalis 03/06/19 02:42 Blood Blood Culture Gram Stain - Final 03/06/19 02:42 Blood Blood Culture - Final Enterococcus faecalis 03/08/19 07:30 Blood Blood Culture - Final 03/08/19 08:46 Blood Blood Culture - Final 03/06/19 11:12 Sputum Gram Stain - Final 03/06/19 11:12 Sputum Sputum Culture - Final 03/05/19 17:44 Blood Blood Culture Gram Stain - Final 03/05/19 17:44 Blood Blood Culture - Final Enterococcus faecalis 03/06/19 10:10 Blood Blood Culture - Final 03/06/19 09:55 Blood Blood Culture - Final 03/05/19 17:44 Blood Blood Culture - Final 03/06/19 02:42 Blood Blood Culture - Final 03/04/19 18:31 Blood Blood Culture - Final Chest x-ray with improved aeration - Imaging and Cardiology CT scan - chest: image reviewed Assessment and Plan (1) Acute on chronic systolic CHF (congestive heart failure) Current Visit: Yes Status: Acute Code(s): I50.23 - ACUTE ON CHRONIC SYSTOLIC (CONGESTIVE) HEART FAILURE SNOMED Code(s): 706577238 (2) Cardiomyopathy Current Visit: Yes Status: Acute Code(s): I42.9 - CARDIOMYOPATHY, UNSPECIFIED SNOMED Code(s): 64957496 (3) Prosthetic valve endocarditis Narrative/Plan: 73-year-old gentleman with aortic valve replacement and prior CABG presented to Hospital and some he in worsening of his ischemic cardiomyopathy. He underwent biventricular ICD implantable pacemaker March 05. The he developed a fever and there are now positive blood cultures. The laboratory has identified enterococcus in the blood cultures. There is no specific other site of infection at this time other than the bacteremia. With aortic valve replacement concerns underlying endocarditis. Consequently antimicrobial therapy is transitioned to ampicillin sulbactam and gentamicin in synergistic dosing dosed by the pharmacy. Aware of his renal insufficiency however until bacteremia clears and there is a definitive alternative cause of the bacteremia would require gentamicin therapy for synergy. Follow blood cultures are requested. The patient has had central line and A-line just placed by the vascular tech. He is receiving fluid resuscitation and vasopressor therapy. 03/09/2019 the patient has had a LISSET performed today which verifies evidence of vegetation on the bioprosthetic aortic valve. The patient has many positive blood cultures. Enterococcus has been isolated. The patient has evidence of gentamicin synergy resistance. Gentamicin was discontinued. With this finding ceftriaxone is added to the Unasyn in attempts for synergy. Follow blood cultures will be obtained. The patient's renal failure is improving. He seemingly more stable. Hopefully he will now start to have evidence of clearance of his bacteremia with the synergistic combination. 03/10/2019 Patient remains intubated sedated and ventilated however is decreased therapy. The patient's itching with Unasyn and Rocephin for the enterococcus endocarditis verified with a LISSET yesterday. Cardiology is following. 03/11/2019 patient has improved and will have further weaning trial tomorrow. The blood cultures are now negative over 48 hours, having a good response to antibiotic therapy. The synergistic therapy is now showing response and will continue for 6 weeks. 03/12/2019 the patient is having some improvement will likely be extubated today. Once the patient has consistently negative blood cultures IV access is required that he may receive his 6 weeks of intravenous antibiotic therapy with Unasyn and Rocephin, there are 2 negative blood cultures at this time. Current Visit: Yes Status: Acute Code(s): T82.6XXA - INFECT/INFLM REACTION DUE TO CARDIAC VALVE PROSTHESIS, INIT; I38 - ENDOCARDITIS, VALVE UNSPECIFIED SNOMED Code(s): 629503168
[2019-03-13 00:07] LABS: Glucose,Whole Blood 114 mg/dL (75-99)
[2019-03-13] MEDS: INSULIN ASPART (NovoLOG) 100 UNIT/ML VIAL SQ SCH ×4 (00:50→19:57)
[2019-03-13] MEDS: AMPICILLIN-SULBACTAM 3 GM in SODIUM CHLORIDE 0.9% 100 ML IVPB SCH ×4 (02:20→20:17)
[2019-03-13] MEDS: NOREPINEPHRINE 4 MG in SODIUM CHLORIDE 0.9% 250 ML IV SCH ×2 (02:56→14:09)
[2019-03-13 05:18] LABS: Basophils # (A) 0.1 k/uL (0-0.2); Basophils % (A) 1 %; Eosinophils # (A) 0.2 k/uL (0-0.7); Eosinophils % (A) 2 %; HCT 35.8 % (39.0-53.0); HGB 10.5 gm/dL (13.0-17.5); Hypochromasia Marked; Lymphocytes # (A) 1.1 k/uL (1.0-4.8); Lymphocytes % (A) 9 %; MCHC 29.3 g/dL (31.0-37.0); MCV 95.3 fL (80.0-100.0); Mean Platelet Volume 8.6; Monocytes # (A) 0.5 k/uL (0-1.0); Monocytes % (A) 4 %; Neutrophils # (A) 10.4 k/uL (1.3-7.7); Neutrophils % (A) 83 %; Platelet Count 264 k/uL (150-450); RBC 3.75 m/uL (4.30-5.90); RDW 14.5 % (11.5-15.5); WBC 12.5 k/uL (3.8-10.6)
[2019-03-13 05:34] LABS: Potassium 3.9 mmol/L (3.5-5.1)
[2019-03-13 07:08] LABS: ALT 103 U/L (21-72); AST 116 U/L (17-59); Alkaline Phosphatase 166 U/L (38-126)
[2019-03-13] MEDS: IPRATROPIUM 0.5 MG/2.5 ML NEBU INHALATION SCH ×4 (07:57→19:58)
[2019-03-13] MEDS: METOPROLOL TARTRATE 50 MG TAB PO SCH ×3 (08:14→21:55)
[2019-03-13] MEDS: PANTOPRAZOLE 40 MG/10 ML VIAL IVP SCH (08:14)
[2019-03-13] MEDS: HEPARIN SODIUM,PORCINE 5,000 UNIT/ML 1 ML VIAL SQ SCH ×2 (08:14→20:19)
[2019-03-13] MEDS: FUROSEMIDE 10 MG/ML 4 ML VIAL IV SCH (08:14)
[2019-03-13] MEDS: AMIODARONE 200 MG TAB PO SCH ×2 (08:14→20:19)
[2019-03-13] MEDS: ASPIRIN 81 MG PO SCH (08:14)
[2019-03-13] MEDS: ATORVASTATIN 40 MG TAB PO SCH (08:14)
--- NOTE | 2019-03-13 08:20 | XR ---
EXAMINATION TYPE: XR chest 1V DATE OF EXAM: 03/13/2019 COMPARISON: 03/12/2019 HISTORY: Shortness of breath TECHNIQUE: Single frontal view of the chest is obtained. FINDINGS: There is an enlarged cardiomediastinal silhouette and left basilar airspace disease obscur ing the left hemidiaphragm and left costophrenic angle. Mild pulmonary vascular congestion remains. P ost CABG changes the chest and multilead left-sided cardiac device are seen. Right internal jugular a pproach central venous catheter is similar. No acute osseous pathology. IMPRESSION: Redemonstration of a left basilar opacity, likely small pleural effusion and atelectasis with mild pulmonary vascular congestion. Overall unchanged exam from the prior.
--- NOTE | 2019-03-13 08:34 | PN ---
PROGRESS NOTE Mr. Tiwari is in atrial fib underlying with some ventricular paced beats. He has been extubated yesterday but still appears to be confused. He has prosthetic valve endocarditis, most likely. He is growing enterococcus but on antibiotics managed by Infectious Disease. Vitals are stable. Urine output is decent. S1, S2 heard normally. Systolic murmur is audible at the base. Lungs reveal diminished air entry. Abdomen and lower extremity exam otherwise is unchanged. Plan is to continue current medications. I will add amiodarone and check liver function tests. MMODL / IJN: [id number] /
[2019-03-13] MEDS: DEXTROSE 5% IN WATER 1,000 ML IV SCH (10:10)
[2019-03-13 11:49] LABS: Glucose,Whole Blood 152 mg/dL (75-99)
--- NOTE | 2019-03-13 12:14 | P.PN ---
Subjective Progress Note Date: 03/13/19 Principal diagnosis: Acute hypoxic respiratory failure secondary to cardiogenic shock, and septic shock. Acute endocarditis. This is a 71-year-old male patient with known history of ischemic cardiomyopathy along with known history of coronary artery disease and previous aortic valve replacement, AVR, and previous coronary artery bypass surgery, who presented to the hospital because of chest pain and non-STEMI. The patient has had previous catheterizations with stenting done in the distal left main as well as the proximal circumflex. He has a chronically totally occluded RCA. As mentioned, the patient was admitted with chest pain or shortness of breath and acute non-S RAFAELA. The patient underwent another cardiac catheterization and the patient was found to have taken stent to the distal left mainstem to proximal circumflex, patent BELTRAN to LAD, chronic totally occluded RCA. Recommendations were mainly to maximize medical management. The patient was being treated for congestion heart failure. He was receiving Lasix drip and he was having ongoing orthopnea. He was taken yesterday to the [facility] and the patient was given biventricular pacing/AICD. Noted postop, the patient was extubated. He became short of breath and went into significant amount of respiratory distress and within 10 minutes she had to be reintubated. He was brought into the intensive care unit intubated on a mechanical ventilator. Initial blood gases showed a pH of 7.28 with a pCO2 of 51 and pO2 of 234. Necessary vent changes were done. The most recent blood gas showed a pH of 7.48 with a pCO2 of 28 and pO2 of 229. The morning vent settings include a tidal volume 400 with a rate of 18 and FiO2 of 40% with 5. The setting was adjusted based on the most recent blood gas. I n oted that the patient is also on pressors and overnight the patient has required norepinephrine infusion and currently is running at 0.1 mcg/kg per minute. The patient is also on Lasix drip at 10 mg an hour. He is producing urine output. However, the patient has developed an acute kidney injury. Creatinine was normal at the time of admission on 02/27/2019 and there has been progressive rise in the creatinine which is up to 2.6 at this point in time. He was he was developing fevers with a temperature 11.6 on 03/04/2019. The patient has blood culture sent a blood culture came back positive for enterococcus group D. The patient was on cefazolin. IV Zosyn was added by the primary care team. This morning, the patient is sedated with propofol is currently running at 50 mics. His, comfortable. He is producing urine output. Her net fluid balance is -642 mL for yesterday. His cardiac rhythm is paced. His white cell count is 19.4. He is obviously septic condition with a positive blood culture. UA the time of admission was negative. He has a Diaz catheter in place. Abdomen is soft. His umbilical hernia. Surgical wound site over the left biventricular pacemaker is dry clean and intact. No significant orotracheal secretions. Chest x-ray from today shows cardiomegaly and lower lobe consolidation as the patient is a left lower lobe consolidation of the right upper lobe! The echocardiogram at shown an ejection fraction of 20-25%. There is moderate concentric left adela tricular hypertrophy. There is severe global hypokinesis. No pericardial effusion. The peak gradient across the aortic valve was 35 mmHg. It is a normal functioning bioprosthetic valve. There is moderate mitral regurgitation. Mild pulmonary hypertension. on 03/07/2019 the patient remains sedated and intubated on mechanical ventilator. The patient is on propofol for sedation. The patient is also on a mechanical ventilator on assist control mode with a tidal volume of 000 and the rate of 18 with an FiO2 of 40% and PEEP of 5. The chest x-ray from today shows stable findings and there is left lower lobe consolidation/effusion. ET tube is in a good location. The left ear showed a pH of 7.44 with a pCO2 of 34 and pO2 of 131. Based on this, there is a component of respiratory alkalosis and I dropped a respiratory rate down to 14. The telephone was kept at 500 for now. I took this patient off the Lasix therapy yesterday as the patient's CVP was running low and the patient was also developing acute kidney injury. Today CVP is also low measuring as high as 4-5 millimeters of mercury. Based on that, the patient was started on oral Lasix set of IV Lasix for cardiology. He is p roducing adequate amount of urine output. Creatinine is also improving and is down to 2.1. The patient is afebrile. The patient was seen by infectious disease. Antibiotic adjustments were done and the patient was placed on a combination of Unasyn and gentamicin. No clear indication for endocarditis. The patient has 3 positive blood culture that was positive for E faecalis, in the patient was simplified back to Unasyn and gentamicin was discontinued as the patient was found to be having a Enterococcus faecalis resistant to gentamicin.. The patient is producing adequate amount of urine output. He is still on pressors and the present doses been weaned down to 0.07 micrograms per kilogram per minute of norepinephrine infusion. The patient will be started on enteral feeding for nutritional support. Cardiology is on the case. Cardiac rhythm remains paced. No significant electrolyte imbalance in the patient's white cell count is down to 10.5. 03/08/2019, the patient remains intubated on a mechanical ventilator. The patient remains hemodynamically unstable requiring pressors and the norepinephrine infusion is running at 0.08 mcg/kg per minute. He is also on Prinivil at 40 mics per KG. The patient a mechanical ventilator on assist control mode with a tidal volume of 500 and rate of 18 with an FiO2 of 40% and a PEEP of 5. Chest x-ray is unchanged compared to yesterday and there are some white pulmonary vessel congestion. The patient is producing 25 mL of urine output on an hourly basis. Net fluid balance is positive to 11 mL over the past 24 hours. He is currently on oral Lasix. He is also on norepinephrine infusion. He is on enteral feeding for nutritional support. He is receiving before for sedation. Note that all of the blood cultures came back positive for Enterococcus faecalis. The patient remains on IV Unasyn. Follow-up cultures were obtained to make sure there is no ongoing bacteremia. There is a high likely what that it there may be a component of infective endocarditis. The patient will need a LISSET to evaluate this further. His cardiac rhythm is paced. The fibrillator pocket is clean and intact at this point in time. As for his continued kidney injury, the patient's creatinine is improving and the creatinine is down to 1.72. The white cell count is also down to 10.5 and the patient is responding to IV Unasyn for now. Reevaluated today on 03/09/2019, patient remains on mechanical ventilation, he is still on norepinephrine at 0.05 mcg/kg/m, still on propofol at 50 mcg/kg/m. He is on mechanical ventilation, assist control rate of 18, FiO2 is 40%, PEEP of 5. Tidal volume is 500. Transesophageal echocardiogram is suspicious for vegetations involving the aortic bioprosthetic valve there was also evidence of thickened mitral valve leaflets with moderate mitral regurgitation. His LV function was noted to be impaired ejection fraction of 20%. ABG this morning showed a pO2 of 120 pCO2 of 42 pH of 7.42 11 lites are normal renal profile is abnormal with BUN of 42 creatinine of 1.75 WBC count is 12.3 hemoglobin is 10.2. Chest x-ray is suspicious for mild interstitial edema and small bilateral pleural effusions. There is also some retrocardiac atelectasis. Patient is sedated, on mechanical ventilation, I have no plans to wean the patient today since LISSET was scheduled to be done shortly after I evaluated the patient. Patient was reevaluated today on 03/10/2019, remains on mechanical ventilation, his ventilator settings are assist control rate of 14 FiO2 is 40% PEEP is 5 tidal volume is 500. Patient is on Cardizem drip as per cardiology 5 mg per hour, his also on metoprolol, and he is on norepinephrine at 0.05 mcg/kg/m. Propofol is 25 mcg/kg/m. Chest x-ray showed cardiomegaly and prominent pulmonary vasculature with minimal basilar atelectasis. ABG showed a pO2 of 117 pCO2 of 43 pH of 7.45. WBC count is 14.8 hemoglobin is 10.5. Electrolytes are relatively normal. Renal profile showed a BUN of 42 creatinine of 1.70. Patient remains sedated, however I plan to hold his sedation today, and hopefully assess mental status and decide whether we can proceed with any further weaning trials. Family is at bedside and they were updated on his condition and on the fact that he has endocarditis. Antibiotics were addressed by Dr. Nguyễn, patient is now on Unasyn. He also remains on Rocephin. Reevaluated today on 03/11/2019, remains in the ICU on mechanical ventilation. His ventilator settings are assist control rate of 14, tidal volume is 500 FiO2 of 35% PEEP is 5. Remains on propofol at 30 mcg/kg/m, he is off pressors. ABG this morning showed a pO2 of 103 pCO2 of 39 pH of 7.50. Electrolytes are normal however his BUN is 51 creatinine is 1.84. WBC count is 11.4 hemoglobin is 10.2. Patient remains on nutritional support via enteral feeding. Remains on antibiotics for his underlying endocarditis as per infectious disease. Yesterday the patient was given a sedation interruption, and a trial of weaning, however he was extremely agitated, restless, and could not go on to wean or extubated the patient. This would be reattempted again today. Reevaluated today in the ICU on 03/12/2019, patient remains on mechanical ventilation, his ventilator settings are tidal volume of 500 assist control rate of 14 FiO2 35% PEEP of 5. Patient remains on propofol, presently off norepinephrine, patient was given a weaning trial yesterday, however he became extremely tachycardic, and restless agitated. Today I plan to wean the patient slowly on Precedex to be started after stopping propofol. Patient will be awakened and will be given definitely a weaning trial today. Depending on how he does on pressure support and CPAP, may or may not proceed to full extubation. Chest x-ray is showing mild congestive changes. ABG this morning showed a pO2 of 77 pCO2 of 45 pH of 7.48 electrolytes showed elevated sodium of 148 BUN is 61 creatinine 1.78. Bicarb is 34 WBC count is 10.2 hemoglobin is 10.1. Patient remains on antibiotics, not requiring pressors at this point, has been intermittently on and off norepinephrine Reevaluated today on 03/13/2019, patient was extubated from mechanical ve ntilation yesterday, patient is presently on high flow nasal cannula, O2 saturation is in the mid 90s, tolerated the extubation well since yesterday. Chest x-ray continues to show evidence of mild congestive heart failure. However the patient has elevated sodium today, it is 153, and I have switched his IV fluid to D5W, will hold on the Lasix for now, and he will receive D5W at 50 mL per hour. Patient received Lasix earlier today by nephrology. Patient remains on antibiotics for his endocarditis. And he is hemodynamically stable at present. Objective - Vital Signs Vital signs: Vital Signs Temp 98.7 F 03/13/19 08:00 Pulse 111 H 03/13/19 11:27 Resp 28 H 03/13/19 11:00 BP 114/86 03/13/19 11:00 Pulse Ox 98 03/13/19 11:00 Intake & Output 03/12/19 03/13/19 03/13/19 18:59 06:59 18:59 Intake Total 1318.761 486 318 Output Total 1315 2610 950 Balance 3.761 -2124 -632 Weight 120.1 kg 120.1 kg Intake: IV 480 486 218 Ampicillin-Sulbactam 3 gm 100 200 100 In Sodium Chloride 0.9% 100 ml @ 200 mls/hr IVPB Q6H [facility] Rx#:[id number] KVO 380 206 100 pressure bag 80 18 Intake, IV Titration 274.761 100 Amount Dexmedetomidine/0.9% NaCl 7.972 (Pmx) 400 mcg In Empty Bag 1 bag @ Titrate IV . Q0M [facility] Rx#:[id number] Norepinephrine 4 mg In 123.485 Sodium Chloride 0.9% 250 ml @ 0.05 MCG/KG/MIN 22. 479 mls/hr IV .[id number] [facility] Rx#:[id number] Propofol 1,000 mg In 93.304 Empty Bag 1 bag @ Titrate IV .Q0M [facility] Rx#: [id number] cefTRIAXone 2 gm In 50 100 Sodium Chloride 0.9% 50 ml @ 100 mls/hr IVPB Q24HR [facility] Rx#:[id number] Tube Feeding 364 Other 200 Output: Urine 1315 2610 950 Other: Voiding Method Indwelling Catheter Indwelling Catheter # Voids 2 # Bowel Movements 2 ABP, PAP, CO, CI - Last Documented Arterial Blood Pressure 105/93 - Exam Physical Exam: Revealed a 73-year-old white male, on nasal cannula, in no distress Head: Atraumatic, normocephalic. HEENT:[Neck is supple.] [No neck masses.] [No thyromegaly.] [No JVD.] Moist mucous membranes Chest: Minimal Crackles at the bases noted bilaterally, symmetrical chest expansion.] Cardiac Exam: [Normal S1 and S2, no S3 gallop, 2/6 systolic murmur thought the precordium] Abdomen: [Soft, nontender, no megaly, no rebound, no guarding, normal bowel sounds.] Extremities: [No clubbing, no edema, no cyanosis.] Neurological Exam: Alert and oriented 3, no gross focal neurologic deficits. Psychiatric: Normal mood, blunt affect, normal mental status examination Lymphatics: No lymphadenopathy. Skin: No rashes - Labs CBC & Chem 7: 03/13/19 05:00 03/13/19 05:00 Labs: Abnormal Lab Results - Last 24 Hours (Table) 03/12/19 03/12/19 03/13/19 Range/Units 13:45 17:37 00:03 WBC (3.8-10.6) k/uL RBC (4.30-5.90) m/uL Hgb (13.0-17.5) gm/dL Hct (39.0-53.0) % MCHC (31.0-37.0) g/dL Neutrophils # (1.3-7.7) k/uL ABG pH 7.51 H (7.35-7.45) ABG HCO3 33 H (21-25) mmol/L ABG Total CO2 34 H (19-24) mmol/L Sodium (137-145) mmol/L Chloride (98-107) mmol/L Carbon Dioxide (22-30) mmol/L BUN (9-20) mg/dL Creatinine (0.66-1.25) mg/dL Glucose (74-99) mg/dL POC Glucose (mg/dL) 116 H 114 H (75-99) mg/dL AST (17-59) U/L ALT (21-72) U/L Alkaline Phosphatase (38-126) U/L 03/13/19 03/13/19 03/13/19 Range/Units 05:00 05:00 05:00 WBC 12.5 H (3.8-10.6) k/uL RBC 3.75 L (4.30-5.90) m/uL Hgb 10.5 L (13.0-17.5) gm/dL Hct 35.8 L (39.0-53.0) % MCHC 29.3 L (31.0-37.0) g/dL Neutrophils # 10.4 H (1.3-7.7) k/uL ABG pH (7.35-7.45) ABG HCO3 (21-25) mmol/L ABG Total CO2 (19-24) mmol/L Sodium 153 H (137-145) mmol/L Chloride 110 H (98-107) mmol/L Carbon Dioxide 36 H (22-30) mmol/L BUN 66 H (9-20) mg/dL Creatinine 1.98 H (0.66-1.25) mg/dL Glucose 132 H (74-99) mg/dL POC Glucose (mg/dL) (75-99) mg/dL AST 116 H (17-59) U/L ALT 103 H (21-72) U/L Alkaline Phosphatase 166 H (38-126) U/L 03/13/19 Range/Units 11:44 WBC (3.8-10.6) k/uL RBC (4.30-5.90) m/uL Hgb (13.0-17.5) gm/dL Hct (39.0-53.0) % MCHC (31.0-37.0) g/dL Neutrophils # (1.3-7.7) k/uL ABG pH (7.35-7.45) ABG HCO3 (21-25) mmol/L ABG Total CO2 (19-24) mmol/L Sodium (137-145) mmol/L Chloride (98-107) mmol/L Carbon Dioxide (22-30) mmol/L BUN (9-20) mg/dL Creatinine (0.66-1.25) mg/dL Glucose (74-99) mg/dL POC Glucose (mg/dL) 152 H (75-99) mg/dL AST (17-59) U/L ALT (21-72) U/L Alkaline Phosphatase (38-126) U/L Microbiology - Last 24 Hours (Table) 03/09/19 09:44 Blood Culture - Preliminary Blood No Growth after 96 hours 03/10/19 12:00 Blood Culture - Preliminary Blood No Growth after 48 hours Assessment and Plan Assessment: Impression: 1 acute hypoxic respiratory failure secondary to cardiogenic shock and septic shock. Patient was extubated successfully on 03/12/2019. 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 3 severe LV dysfunction and cardiomyopathy, ischemic in nature, ejection fraction of 20-25% post-insertion of AICD. 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 6 septic shock secondary to enterococcal infection 7 acute kidney injury secondary to sepsis, ATN, and possibly contrast nephropathy 8 history of underlying COPD, hypertension, hyperlipidemia, obesity, and generalized anxiety disorder. 9 hypernatremia secondary to free water depletion, and diuretics, hence we'll change the IV fluid to D5W, and hydrate the patient cautiously with D5W, and liberalize free water intake Recommendation: Continue oxygen at high flow nasal cannula and titrate accordingly keep O2 saturation above 90%. Continue nutritional support Continue antibiotics and/Unasyn and Rocephin Continue GI and DVT prophylaxis Continue to monitor the patient in the ICU, prognosis remains guarded, we will continue to follow. Time with Patient: Less than 30
--- NOTE | 2019-03-13 15:41 | PN ---
PROGRESS NOTE Patient is seen for followup for acute kidney injury. He is currently being diuresed. Patient was extubated this morning. He is comfortable. He is not in any acute distress. Blood pressure this morning was 129/90. Patient is afebrile. EXAMINATION OF THE HEART: S1 and S2. EXAMINATION OF LUNGS: Bilateral breath sounds are heard. ABDOMEN: Soft, non-tender. Examination of lower extremities shows edema 1+ bilaterally. Labs show sodium 153, potassium 3.9, chloride 110. CO2 is 36, BUN 66, serum creatinine 1.98. ASSESSMENT: 1. Acute kidney injury, acute tubular necrosis, secondary to sepsis, hypotension; nonoliguric. Serum creatinine is slightly higher than yesterday. Patient is maintained on IV Lasix q.12 hours. I will decrease that to once a day. He has an indwelling Diaz catheter. 2. Hypoxic respiratory failure, status post extubation. Patient was extubated yesterday. He is doing fair. 3. Sepsis with Enterococcus faecalis bacteremia and endocarditis. Repeat blood cultures are negative as of 03/09 and 03/10/2019. Maintained on ceftriaxone and Unasyn. 4. Atrial fibrillation. Rate is controlled, maintained on amiodarone orally. 5. Hypernatremia. Serum sodium is slightly worse. As patient was extubated, he is not maintained on tube feedings anymore. I will start him on D5W. PLAN: Decrease Lasix to once a day. Add D5W. Repeat labs in a.m. MMODL / IJN: [id number] /
[2019-03-13] MEDS ORDERED: ACETAMINOPHEN IV (For NPO) 1,000 MG in EMPTY BAG 1 BAG IVPB ONE (17:00)
--- NOTE | 2019-03-13 17:00 | P.PN ---
Subjective Progress Note Date: 03/13/19 Principal diagnosis: Cardiogenic shock/ acute on chronic systolic CHF Subacute bacterial endocarditis/ septic shock with enterococcus septicemia 03/13/2019, patient was extubated from mechanical ventilation yesterday, patient is presently on high flow nasal cannula, O2 saturation is in the mid 90s, tolerated the extubation well since yesterday. Chest x-ray continues to show evidence of mild congestive heart failure. However the patient has elevated s odium today, it is 153, and I have switched his IV fluid to D5W, will hold on the Lasix for now, and he will receive D5W at 50 mL per hour. Patient received Lasix earlier today by nephrology. Patient remains on antibiotics for his endocarditis. And he is hemodynamically stable at present. Patient is becoming more awake and alert; has been having repeated jerking movements of hand ; CT of head is ordered; Objective - Vital Signs Vital signs: Vital Signs Temp 98.3 F 03/13/19 12:00 Pulse 115 H 03/13/19 13:00 Resp 24 03/13/19 13:00 BP 105/71 03/13/19 13:00 Pulse Ox 95 03/13/19 13:00 Intake & Output 03/12/19 03/13/19 03/13/19 18:59 06:59 18:59 Intake Total 1318.761 486 487 Output Total 1315 2610 1275 Balance 3.761 -2124 -788 Weight 120.1 kg 120.1 kg Intake: IV 480 486 387 Ampicillin-Sulbactam 3 gm 100 200 200 In Sodium Chloride 0.9% 100 ml @ 200 mls/hr IVPB Q6H [facility] Rx#:[id number] KVO 380 206 160 pressure bag 80 27 Intake, IV Titration 274.761 100 Amount Dexmedetomidine/0.9% NaCl 7.972 (Pmx) 400 mcg In Empty Bag 1 bag @ Titrate IV . Q0M [facility] Rx#:[id number] Norepinephrine 4 mg In 123.485 Sodium Chloride 0.9% 250 ml @ 0.05 MCG/KG/MIN 22. 479 mls/hr IV .[id number] [facility] Rx#:[id number] Propofol 1,000 mg In 93.304 Empty Bag 1 bag @ Titrate IV .Q0M [facility] Rx#: [id number] cefTRIAXone 2 gm In 50 100 Sodium Chloride 0.9% 50 ml @ 100 mls/hr IVPB Q24HR [facility] Rx#:[id number] Tube Feeding 364 Other 200 Output: Urine 1315 2610 1275 Other: Voiding Method Indwelling Catheter Indwelling Catheter Indwelling Catheter # Voids 2 # Bowel Movements 2 ABP, PAP, CO, CI - Last Documented Arterial Blood Pressure 105/93 - Exam PHYSICAL EXAMINATION: GENERAL: The patient is alert and oriented x3, not in any acute distress. Well developed, well nourished. HEENT: Pupils are round and equally reacting to light. EOMI. No scleral icterus. No conjunctival pallor. Normocephalic, atraumatic. No pharyngeal erythema. No thyromegaly. CARDIOVASCULAR: S1 and S2 present. No murmurs, rubs, or gallops. PULMONARY: Chest is clear to auscultation, no wheezing or crackles. ABDOMEN: Soft, nontender, nondistended, normoactive bowel sounds. No palpable organomegaly. MUSCULOSKELETAL: No joint swelling or deformity. EXTREMITIES: No cyanosis, clubbing, or pedal edema. NEUROLOGICAL: Gross neurological examination did not reveal any focal deficits. SKIN: No rashes. - Labs CBC & Chem 7: 03/13/19 05:00 03/13/19 05:00 Labs: Abnormal Lab Results - Last 24 Hours (Table) 03/12/19 03/13/19 03/13/19 Range/Units 17:37 00:03 05:00 WBC 12.5 H (3.8-10.6) k/uL RBC 3.75 L (4.30-5.90) m/uL Hgb 10.5 L (13.0-17.5) gm/dL Hct 35.8 L (39.0-53.0) % MCHC 29.3 L (31.0-37.0) g/dL Neutrophils # 10.4 H (1.3-7.7) k/uL Sodium (137-145) mmol/L Chloride (98-107) mmol/L Carbon Dioxide (22-30) mmol/L BUN (9-20) mg/dL Creatinine (0.66-1.25) mg/dL Glucose (74-99) mg/dL POC Glucose (mg/dL) 116 H 114 H (75-99) mg/dL AST (17-59) U/L ALT (21-72) U/L Alkaline Phosphatase (38-126) U/L 03/13/19 03/13/19 03/13/19 Range/Units 05:00 05:00 11:44 WBC (3.8-10.6) k/uL RBC (4.30-5.90) m/uL Hgb (13.0-17.5) gm/dL Hct (39.0-53.0) % MCHC (31.0-37.0) g/dL Neutrophils # (1.3-7.7) k/uL Sodium 153 H (137-145) mmol/L Chloride 110 H (98-107) mmol/L Carbon Dioxide 36 H (22-30) mmol/L BUN 66 H (9-20) mg/dL Creatinine 1.98 H (0.66-1.25) mg/dL Glucose 132 H (74-99) mg/dL POC Glucose (mg/dL) 152 H (75-99) mg/dL AST 116 H (17-59) U/L ALT 103 H (21-72) U/L Alkaline Phosphatase 166 H (38-126) U/L Microbiology - Last 24 Hours (Table) 03/10/19 12:00 Blood Culture - Preliminary Blood No Growth after 72 hours 03/09/19 09:44 Blood Culture - Preliminary Blood No Growth after 96 hours Assessment and Plan Assessment: Cardiogenic shock Acute on chronic systolic congestive heart failure with ejection fraction 20- 25%, on the top of history of severe ischemic cardiomyopathy. 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 Continue with antibiotics as per infectious disease recommendation, for 6 more weeks and currently he is on Unasyn and Lasix, follow-up final culture results. Patient remains intubated and measures by critical care team. Weaning trial as per pulmonary/critical team. Patient is on Lasix. . Follow-up cardiology recommendations. Follow-up WBC and creatinine.Labs and medication were reviewed. Nephrology consult for renal disease. Continue same treatment. Continue with symptomatic treatment. Resume home medication. Monitor lytes and vitals. DVT and GI prophylaxis. Further recommendations of the clinical course of the patient DVT prophylaxis: Subcutaneous heparin GI Prophylaxis: Protonix Prognosis is extremely poor and guarded Time with Patient: Greater than 30
--- NOTE | 2019-03-13 17:45 | CT ---
EXAMINATION TYPE: CT brain wo con DATE OF EXAM: 03/13/2019 COMPARISON: None HISTORY: Weakness, mental status changes CT DLP: 1188.4 mGycm Automated exposure control for dose reduction was used. FINDINGS: There is mild cerebral cortical atrophy. There is no mass effect nor midline shift. There is no sign of intracranial hemorrhage. The calvarium is intact. IMPRESSION: CEREBRAL ATROPHY. NO ACUTE INTRACRANIAL ABNORMALITY.
[2019-03-13 19:53] LABS: Glucose,Whole Blood 143 mg/dL (75-99)
[2019-03-13] MEDS: CLOPIDOGREL 75 MG TAB PO SCH (20:19)
[2019-03-13 21:03] LABS: Glucose,Whole Blood 141 mg/dL (75-99)
--- NOTE | 2019-03-13 23:28 | P.PN ---
Subjective Progress Note Date: 03/13/19 This is a 73-year-old male with known history of ischemic cardiomyopathy along with known history of coronary artery disease and previous aortic valve replacement, AVR, and previous coronary artery bypass surgery. He presented on March 01 because of chest pain and found to have non-STEMI. He underwent cardiac catheterization with Dr. Juarez on 03/03 and the patient was found to have patent stent to the distal left mainstem to proximal circumflex, patent BELTRAN to LAD, chronic totally occluded RCA. Recommendations were mainly to maximize medical management. Patient was apparently having runs of V. tach and a consult was added for Dr. Ho. Patient subsequently underwent a biventricular ICD implantation on March 05. Patient was intubated prior to the procedure as apparently he is unable to lay flat for this. He received 700 mL of fluid during procedure. He was extubated last evening for only 3 minutes and was re- intubated. He was given Lasix 40 mg IV push followed by Lasix drip at 10 mg per hour. The Lasix to was discontinued this morning. Patient remains intubated, on sedation and on levo fed. His chest x-ray this morning reveals a right upper lobe pneumonia and probable heart failure. Patient has been running fevers up to 101.6 on evening of 925. White count 20.6, renal function is worsening with a BUN 45 and creatinine 2.6. Urinalysis was clear with nitrate and l eukoesterase negative. Urine output has been on the lower side running about 50 mL per hour or less. Blood culture from 03/04 is group D enterococcus and thus this consult was requested. 03/09/2019 the patient had evidence of isolated enterococcal bacteremia. The case was discussed with cardiology and a LISSET has been performed today which is verified evidence of a vegetation on the bioprosthetic aortic valve. There is no evidence of any ring abscess or of extensive valvular disease. The patient has shown some improvement in that his fever is improved and his leukocytosis is improving. 03/10/2019 patient remains intubated sedated and mechanically ventilated. His oxygen requirements have decreased in with increased dose of beta russell treatment started as some further improvement of his rate and dysrhythmia. He has been seen by cardiovascular surgeon. 03/11/2019 patient had weaning trial not successful to be retried tomorrow. Off of vasopressor therapy and stable. 03/12/2019 patient has had improvement of his status. He is less sedated. He is on CPAP and doing well likely be extubated when he is a bit more awake. 03/13/2019 the patient is extubated sitting upright feeling considerably better able to eat some nutrition. Not having much chest pain shortness of breath is improved. Objective - Vital Signs Vital signs: Vital Signs Temp 98.2 F 03/13/19 20:00 Pulse 109 H 03/13/19 22:00 Resp 24 03/13/19 22:00 BP 115/87 03/13/19 22:00 Pulse Ox 95 03/13/19 22:00 Intake & Output 03/13/19 03/13/19 03/14/19 06:59 18:59 06:59 Intake Total 486 826 313 Output Total 2610 1505 185 Balance -0094 -109 128 Weight 120.1 kg 120.1 kg Intake: IV 486 726 213 Ampicillin-Sulbactam 3 gm 200 200 In Sodium Chloride 0.9% 100 ml @ 200 mls/hr IVPB Q6H DEANDRA Rx#:[id number] Dextrose 5% in Water 1, 350 200 000 ml @ 50 mls/hr IV . Q20H DEANDRA Rx#:[id number] KVO 206 140 10 pressure bag 80 36 3 Intake, IV Titration 100 100 Amount Ampicillin-Sulbactam 3 gm 100 In Sodium Chloride 0.9% 100 ml @ 200 mls/hr IVPB Q6H DEANDRA Rx#:[id number] cefTRIAXone 2 gm In 100 Sodium Chloride 0.9% 50 ml @ 100 mls/hr IVPB Q24HR DEANDRA Rx#:[id number] Output: Urine 2610 1505 185 Other: Voiding Method Indwelling Catheter Indwelling Catheter Indwelling Catheter # Bowel Movements 2 1 ABP, PAP, CO, CI - Last Documented Arterial Blood Pressure 105/93 - Exam Gen: This is a 73-year-old male. He has tolerated extubation well. N ot having much shortness of breath. On the exam he has no tenderness over the pacemaker and does not recall it even being there. HEENT: Head is atraumatic, normocephalic. Pupils equal, round. Sclerae is anicteric. Conjunctiva pink. Oral mucous membranes are moist. Appears patient is edentulous. ET and gastric tube are in place orally. NECK: Supple. No JVD. No lymphadenopathy. No thyromegaly. LUNGS: Symmetrical air entry with few expiratory wheezes basilar crackles or bronchial sounds HEART: Regular rate and rhythm. No murmur. There is a dressing over the AICD, left upper chest wall, no drainage. No significant edema around the area. ABDOMEN: Soft. Bowel sounds are present. No masses. No tenderness. No redness under her abdominal fold. Diaz catheter draining clear dmitry urine. EXTREMITIES: Trace bilateral pedal edema. No wounds, no cellulitis noted. Dorsalis pedis 1+ bilaterally. NEUROLOGICAL: Patient is now very little sedation much more interactive - Labs CBC & Chem 7: 03/13/19 05:00 03/13/19 05:00 Labs: Abnormal Lab Results - Last 24 Hours (Table) 03/13/19 03/13/19 03/13/19 Range/Units 00:03 05:00 05:00 WBC 12.5 H (3.8-10.6) k/uL RBC 3.75 L (4.30-5.90) m/uL Hgb 10.5 L (13.0-17.5) gm/dL Hct 35.8 L (39.0-53.0) % MCHC 29.3 L (31.0-37.0) g/dL Neutrophils # 10.4 H (1.3-7.7) k/uL Sodium 153 H (137-145) mmol/L Chloride 110 H (98-107) mmol/L Carbon Dioxide 36 H (22-30) mmol/L BUN 66 H (9-20) mg/dL Creatinine 1.98 H (0.66-1.25) mg/dL Glucose 132 H (74-99) mg/dL POC Glucose (mg/dL) 114 H (75-99) mg/dL AST (17-59) U/L ALT (21-72) U/L Alkaline Phosphatase (38-126) U/L 03/13/19 03/13/19 03/13/19 Range/Units 05:00 11:44 19:43 WBC (3.8-10.6) k/uL RBC (4.30-5.90) m/uL Hgb (13.0-17.5) gm/dL Hct (39.0-53.0) % MCHC (31.0-37.0) g/dL Neutrophils # (1.3-7.7) k/uL Sodium (137-145) mmol/L Chloride (98-107) mmol/L Carbon Dioxide (22-30) mmol/L BUN (9-20) mg/dL Creatinine (0.66-1.25) mg/dL Glucose (74-99) mg/dL POC Glucose (mg/dL) 152 H 143 H (75-99) mg/dL AST 116 H (17-59) U/L ALT 103 H (21-72) U/L Alkaline Phosphatase 166 H (38-126) U/L 03/13/19 Range/Units 21:00 WBC (3.8-10.6) k/uL RBC (4.30-5.90) m/uL Hgb (13.0-17.5) gm/dL Hct (39.0-53.0) % MCHC (31.0-37.0) g/dL Neutrophils # (1.3-7.7) k/uL Sodium (137-145) mmol/L Chloride (98-107) mmol/L Carbon Dioxide (22-30) mmol/L BUN (9-20) mg/dL Creatinine (0.66-1.25) mg/dL Glucose (74-99) mg/dL POC Glucose (mg/dL) 141 H (75-99) mg/dL AST (17-59) U/L ALT (21-72) U/L Alkaline Phosphatase (38-126) U/L Microbiology - Last 24 Hours (Table) 03/10/19 12:00 Blood Culture - Preliminary Blood No Growth after 72 hours 03/09/19 09:44 Blood Culture - Preliminary Blood No Growth after 96 hours Laboratory Results WBC 12.5 k/uL (3.8-10.6) H 03/13/19 05:00 RBC 3.75 m/uL (4.30-5.90) L 03/13/19 05:00 Hgb 10.5 gm/dL (13.0-17.5) L 03/13/19 05:00 Hct 35.8 % (39.0-53.0) L 03/13/19 05:00 MCV 95.3 fL (80.0-100.0) 03/13/19 05:00 MCH 28.0 pg (25.0-35.0) 03/13/19 05:00 MCHC 29.3 g/dL (31.0-37.0) L 03/13/19 05:00 RDW 14.5 % (11.5-15.5) 03/13/19 05:00 Plt Count 264 k/uL (150-450) 03/13/19 05:00 Neutrophils % 83 % 03/13/19 05:00 Lymphocytes % 9 % 03/13/19 05:00 Monocytes % 4 % 03/13/19 05:00 Eosinophils % 2 % 03/13/19 05:00 Basophils % 1 % 03/13/19 05:00 Neutrophils # 10.4 k/uL (1.3-7.7) H 03/13/19 05:00 Lymphocytes # 1.1 k/uL (1.0-4.8) 03/13/19 05:00 Monocytes # 0.5 k/uL (0-1.0) 03/13/19 05:00 Eosinophils # 0.2 k/uL (0-0.7) 03/13/19 05:00 Basophils # 0.1 k/uL (0-0.2) 03/13/19 05:00 Hypochromasia Marked 03/13/19 05:00 Anisocytosis Slight 03/01/19 15:07 PT 11.1 sec (9.0-12.0) 03/10/19 10:35 INR 1.0 (<1.2) 03/10/19 10:35 APTT 53.7 sec (22.0-30.0) H 03/02/19 21:57 Sample Site [place] 03/12/19 13:45 ABG pH 7.51 (7.35-7.45) H 03/12/19 13:45 ABG pCO2 41 mmHg (35-45) 03/12/19 13:45 ABG pO2 83 mmHg (83-108) 03/12/19 13:45 ABG HCO3 33 mmol/L (21-25) H 03/12/19 13:45 ABG Total CO2 34 mmol/L (19-24) H 03/12/19 13:45 ABG O2 Saturation 96.7 % (94-97) 03/12/19 13:45 ABG Base Excess 9.6 mmol/L 03/12/19 13:45 Manuel Test na 03/12/19 13:45 FiO2 35 % 03/12/19 13:45 Sodium 153 mmol/L (137-145) H 03/13/19 05:00 Potassium 3.9 mmol/L (3.5-5.1) 03/13/19 05:00 Chloride 110 mmol/L (98-107) H 03/13/19 05:00 Carbon Dioxide 36 mmol/L (22-30) H 03/13/19 05:00 Anion Gap 7 mmol/L 03/13/19 05:00 BUN 66 mg/dL (9-20) H 03/13/19 05:00 Creatinine 1.98 mg/dL (0.66-1.25) H 03/13/19 05:00 Est GFR (CKD-EPI)AfAm 38 (>60 ml/min/1.73 sqM) 03/13/19 05:00 Est GFR (CKD-EPI)NonAf 33 (>60 ml/min/1.73 sqM) 03/13/19 05:00 Glucose 132 mg/dL (74-99) H 03/13/19 05:00 POC Glucose (mg/dL) 141 mg/dL (75-99) H 03/13/19 21:00 POC Glu Sound Installation Worker ID Nathan Peterson 03/13/19 21:00 Plasma Lactic Acid [place] 1.2 mmol/L (0.7-2.0) 03/06/19 10:10 Calcium 9.0 mg/dL (8.4-10.2) 03/13/19 05:00 Phosphorus 3.8 mg/dL (2.5-4.5) 03/09/19 04:30 Magnesium 2.3 mg/dL (1.6-2.3) 03/09/19 04:30 Total Bilirubin 0.9 mg/dL (0.2-1.3) 03/01/19 15:07 AST 116 U/L (17-59) H 03/13/19 05:00 ALT 103 U/L (21-72) H 03/13/19 05:00 Alkaline Phosphatase 166 U/L (38-126) H 03/13/19 05:00 Troponin I 1.080 ng/mL (0.000-0.034) H* 03/02/19 04:09 NT-Pro-B Natriuret Pep 79588 pg/mL 03/01/19 15:07 Total Protein 6.8 g/dL (6.3-8.2) 03/01/19 15:07 Albumin 3.4 g/dL (3.5-5.0) L 03/01/19 15:07 Triglycerides 105 mg/dL (<150) 03/02/19 04:09 Cholesterol 188 mg/dL (<200) 03/02/19 04:09 LDL Cholesterol, Calc 148 mg/dL (0-99) H 03/02/19 04:09 HDL Cholesterol 19 mg/dL (40-60) L 03/02/19 04:09 TSH 3.570 mIU/L (0.465-4.680) 03/04/19 02:17 Urine Color Yellow 03/04/19 23:09 Urine Appearance Clear (Clear) 03/04/19 23:09 Urine pH 5.0 (5.0-8.0) 03/04/19 23:09 Ur Specific [place] 1.013 (1.001-1.035) 03/04/19 23:09 Urine Protein Trace (Negative) H 03/04/19 23:09 Urine Glucose (UA) Negative (Negative) 03/04/19 23:09 Urine Ketones Negative (Negative) 03/04/19 23:09 Urine Blood Negative (Negative) 03/04/19 23:09 Urine Nitrite Negative (Negative) 03/04/19 23:09 Urine Bilirubin Negative (Negative) 03/04/19 23:09 Urine Urobilinogen <2.0 mg/dL (<2.0) 03/04/19 23:09 Ur Leukocyte Esterase Negative (Negative) 03/04/19 23:09 Microbiology 03/10/19 12:00 Blood Blood Culture - Preliminary No Growth after 72 hours 03/09/19 09:44 Blood Blood Culture - Preliminary No Growth after 96 hours 03/08/19 08:46 Blood Blood Culture Gram Stain - Final 03/08/19 08:46 Blood Blood Culture - Final Enterococcus faecalis 03/08/19 07:30 Blood Blood Culture Gram Stain - Final 03/08/19 07:30 Blood Blood Culture - Final Enterococcus faecalis 03/04/19 18:31 Blood Blood Culture Gram Stain - Final 03/04/19 18:31 Blood Blood Culture - Final Enterococcus faecalis 03/06/19 09:55 Blood Blood Culture Gram Stain - Final 03/06/19 09:55 Blood Blood Culture - Final Enterococcus faecalis 03/06/19 10:10 Blood Blood Culture Gram Stain - Final 03/06/19 10:10 Blood Blood Culture - Final Enterococcus faecalis 03/06/19 02:42 Blood Blood Culture Gram Stain - Final 03/06/19 02:42 Blood Blood Culture - Final Enterococcus faecalis 03/08/19 07:30 Blood Blood Culture - Final 03/08/19 08:46 Blood Blood Culture - Final 03/06/19 11:12 Sputum Gram Stain - Final 03/06/19 11:12 Sputum Sputum Culture - Final 03/05/19 17:44 Blood Blood Culture Gram Stain - Final 03/05/19 17:44 Blood Blood Culture - Final Enterococcus faecalis 03/06/19 10:10 Blood Blood Culture - Final 03/06/19 09:55 Blood Blood Culture - Final 03/05/19 17:44 Blood Blood Culture - Final 03/06/19 02:42 Blood Blood Culture - Final 03/04/19 18:31 Blood Blood Culture - Final Assessment and Plan (1) Acute on chronic systolic CHF (congestive heart failure) Current Visit: Yes Status: Acute Code(s): I50.23 - ACUTE ON CHRONIC SYSTOLIC (CONGESTIVE) HEART FAILURE SNOMED Code(s): 703927580 (2) Cardiomyopathy Current Visit: Yes Status: Acute Code(s): I42.9 - CARDIOMYOPATHY, UNSPE CIFIED SNOMED Code(s): 45908958 (3) Prosthetic valve endocarditis Narrative/Plan: 73-year-old gentleman with aortic valve replacement and prior CABG presented to Hospital and some he in worsening of his ischemic cardiomyopathy. He underwent biventricular ICD implantable pacemaker March 05. The he developed a fever and there are now positive blood cultures. The laboratory has identified enterococcus in the blood cultures. There is no specific other site of infection at this time other than the bacteremia. With aortic valve replacement concerns underlying endocarditis. Consequently antimicrobial therapy is transitioned to ampicillin sulbactam and gentamicin in synergistic dosing dosed by the pharmacy. Aware of his renal insufficiency however until bacteremia clears and there is a definitive alternative cause of the bacteremia would require gentamicin therapy for synergy. Follow blood cultures are requested. The patient has had central line and A-line just placed by the group art supervisor. He is receiving fluid resuscitation and vasopressor therapy. 03/09/2019 the patient has had a LISSET performed today which verifies evidence of vegetation on the bioprosthetic aortic valve. The patient has many positive blood cultures. Enterococcus has been isolated. The patient has evidence of gentamicin synergy resistance. Gentamicin was discontinued. With this finding ceftriaxone is added to the Unasyn in attempts for synergy. Follow blood cultures will be obtained. The patient's renal failure is improvin g. He seemingly more stable. Hopefully he will now start to have evidence of clearance of his bacteremia with the synergistic combination. 03/10/2019 Patient remains intubated sedated and ventilated however is decreased therapy. The patient's itching with Unasyn and Rocephin for the enterococcus endocarditis verified with a LISSET yesterday. Cardiology is following. 03/11/2019 patient has improved and will have further weaning trial tomorrow. The blood cultures are now negative over 48 hours, having a good response to antibiotic therapy. The synergistic therapy is now showing response and will continue for 6 weeks. 03/12/2019 the patient is having some improvement will likely be extubated today. Once the patient has consistently negative blood cultures IV access is required that he may receive his 6 weeks of intravenous antibiotic therapy with Unasyn and Rocephin, there are 2 negative blood cultures at this time. 03/13/2019 the patient has had further improvement of his status. He has now been extubated and doing well on nasal cannula oxygen. Not having significant hypotension. He is showing some ongoing improvement. 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 Likely have IV access placed soon and arrangements for the 6 weeks of ampicillin sulbactam and daptomycin which he is tolerating well. Current Visit: Yes Status: Acute Code(s): T82.6XXA - INFECT/INFLM REACTION DUE TO CARDIAC VALVE PROSTHESIS, INIT; I38 - ENDOCARDITIS, VALVE UNSPECIFIED SNOMED Code(s): 265934534
[2019-03-14] MEDS: NOREPINEPHRINE 4 MG in SODIUM CHLORIDE 0.9% 250 ML IV SCH ×3 (01:07→22:33)
[2019-03-14 01:14] LABS: Glucose,Whole Blood 128 mg/dL (75-99)
[2019-03-14] MEDS: INSULIN ASPART (NovoLOG) 100 UNIT/ML VIAL SQ SCH ×5 (01:31→22:11)
[2019-03-14] MEDS: AMPICILLIN-SULBACTAM 3 GM in SODIUM CHLORIDE 0.9% 100 ML IVPB SCH ×4 (03:08→21:32)
[2019-03-14] MEDS: DEXTROSE 5% IN WATER 1,000 ML IV SCH (05:46)
--- NOTE | 2019-03-14 06:03 | XR ---
EXAMINATION TYPE: XR chest 1V DATE OF EXAM: 03/14/2019 HISTORY: SOB. REFERENCE: Previous study dated 03/13/2019. FINDINGS: There has been a midline sternotomy. A right internal jugular catheter is in place. Its tip is in the right atrium. There is a multilead pacing device present on the left. The heart is enlarged. There is improved aeration of both lungs. There continues be left basilar airs pace disease. There is a left effusion. IMPRESSION: 1. IMPROVED AERATION OF BOTH LUNGS. 2. CONTINUING LEFT BASILAR AIRSPACE DISEASE AND A SMALL LEFT EFFUSION. 3. IMPROVING CHANGES OF PULMONARY EDEMA.
[2019-03-14 06:33] LABS: Potassium 3.6 mmol/L (3.5-5.1)
[2019-03-14 06:55] LABS: Glucose,Whole Blood 150 mg/dL (75-99)
[2019-03-14] MEDS ORDERED: AMIODARONE 360 MG in DEXTROSE 5% IN WATER 200 ML IV ONE ×2 (06:59)
[2019-03-14 07:15] LABS: Basophils # (A) 0.1 k/uL (0-0.2); Basophils % (A) 1 %; Eosinophils # (A) 0.2 k/uL (0-0.7); Eosinophils % (A) 1 %; HCT 36.5 % (39.0-53.0); HGB 10.6 gm/dL (13.0-17.5); Hypochromasia Marked; Lymphocytes # (A) 1.2 k/uL (1.0-4.8); Lymphocytes % (A) 8 %; MCH 27.8 pg (25.0-35.0); MCHC 29.1 g/dL (31.0-37.0); MCV 95.4 fL (80.0-100.0); Mean Platelet Volume 8.7; Monocytes # (A) 0.7 k/uL (0-1.0); Monocytes % (A) 5 %; Neutrophils # (A) 12.2 k/uL (1.3-7.7); Neutrophils % (A) 84 %; Platelet Count 298 k/uL (150-450); RBC 3.83 m/uL (4.30-5.90); RDW 14.8 % (11.5-15.5); WBC 14.6 k/uL (3.8-10.6)
[2019-03-14] MEDS: METOPROLOL TARTRATE 50 MG TAB PO SCH ×3 (07:52→21:44)
[2019-03-14] MEDS ORDERED: POTASSIUM CHLORIDE ER 20 MEQ TAB.ER PO SCH (08:00)
[2019-03-14] MEDS ORDERED: AMIODARONE 150 MG Bolus IV ONE ×2 (08:00)
[2019-03-14] MEDS: FUROSEMIDE 10 MG/ML 4 ML VIAL IV SCH (08:13)
[2019-03-14] MEDS: PANTOPRAZOLE 40 MG/10 ML VIAL IVP SCH (08:13)
[2019-03-14] MEDS: HEPARIN SODIUM,PORCINE 5,000 UNIT/ML 1 ML VIAL SQ SCH ×2 (08:14→22:13)
[2019-03-14] MEDS: ASPIRIN 81 MG PO SCH (08:14)
[2019-03-14] MEDS: ATORVASTATIN 40 MG TAB PO SCH (08:14)
[2019-03-14] MEDS: IPRATROPIUM 0.5 MG/2.5 ML NEBU INHALATION SCH ×4 (08:36→19:21)
[2019-03-14] MEDS: AMIODARONE 300 MG in DEXTROSE 5% IN WATER 250 ML IV SCH ×4 (09:36→19:47)
--- NOTE | 2019-03-14 10:48 | PN ---
PROGRESS NOTE Mr. Tiwari is in atrial fib, rate has increased. He is more awake. He is responding to questions but still confused. His Enterococcus bacteremia is there with a prosthetic valve endocarditis. S1, S2 heard normally, tachycardia, irregular rate and rhythm noted. Lungs reveal diminished air entry. Abdomen and lower extremity exam is unchanged. For his atrial fib, I am recommending IV amiodarone bolus and drip for 24 hours at 0.5 mg/hour and see how he does. Prognosis remains guarded in this patient with prosthetic valve endocarditis. We will see how he does with rate control with amiodarone intravenously. Prognosis remains guarded. MMODL / IJN: [id number] /
[2019-03-14] MEDS: ACETAMINOPHEN TAB 325 MG TAB PO PRN (12:24)
[2019-03-14 12:38] LABS: Glucose,Whole Blood 135 mg/dL (75-99)
--- NOTE | 2019-03-14 13:45 | PN ---
PROGRESS NOTE The patient is seen for followup for acute kidney injury. He is currently being diuresed. The patient is not eating much. He has been extubated. He is maintained on 4 L nasal cannula. PHYSICAL EXAMINATION: Blood pressure is 136/95, heart rate 111 to 120 per minute. Patient is afebrile. EXAMINATION OF THE HEART: S1, S2. EXAMINATION OF THE LUNGS: Decreased breath sounds at bases. Abdomen is soft, nontender, distended. Examination of lower extremities shows trace edema bilaterally. SALES OPERATIONS CONSULTANT exam shows patient is moving all 4 extremities. LABS: Labs show sodium 150, potassium 3.6, chloride 109, BUN 69, serum creatinine 1.9, magnesium 2.7. Hemoglobin was 10.6 g/dL. Chest x-ray from this morning shows improved aeration of both lungs, improving changes of pulmonary vascular congestion. ASSESSMENT: 1. Acute kidney injury, acute tubular necrosis, currently nonoliguric, fairly stable. Continue with the Lasix which was decreased to 40 mg IV daily. 2. Hypernatremia associated with free water deficit, slowly improving. Patient is maintained on D5W. Sodium is down to 150 from 153. 3. Hypokalemia secondary to diuresis, currently being replaced. 4. Mild hypermagnesemia. The patient is not on any magnesium supplements. We will continue to monitor for now. 5. Atrial fibrillation with rapid ventricular response, maintained on amiodarone drip. 6. Sepsis with Enterococcus faecalis bacteremia from endocarditis. 7. Hypoxic respiratory failure, status post extubation. PLAN: Continue with the current dose of Lasix. Continue D5W. Repeat labs in a.m. MMODL / IJN: [id number] /
--- NOTE | 2019-03-14 13:49 | P.PN ---
Subjective Progress Note Date: 03/14/19 Principal diagnosis: Acute hypoxic respiratory failure secondary to cardiogenic shock, and septic shock. Acute endocarditis. This is a 71-year-old male patient with known history of ischemic cardiomyopathy along with known history of coronary artery disease and previous aortic valve replacement, AVR, and previous coronary artery bypass surgery, who presented to the hospital because of chest pain and non-STEMI. The patient has had previous catheterizations with stenting done in the distal left main as well as the proximal circumflex. He has a chronically totally occluded RCA. As mentioned, the patient was admitted with chest pain or shortness of breath and acute non-S RAFAELA. The patient underwent another cardiac catheterization and the patient was found to have taken stent to the distal left mainstem to proximal circumflex, patent BELTRAN to LAD, chronic totally occluded RCA. Recommendations were mainly to maximize medical management. The patient was being treated for congestion heart failure. He was receiving Lasix drip and he was having ongoing orthopnea. He was taken yesterday to the Utilization Reviewer and the patient was given biventricular pacing/AICD. Noted postop, the patient was extubated. He became short of breath and went into significant amount of respiratory distress and within 10 minutes she had to be reintubated. He was brought into the intensive care unit intubated on a mechanical ventilator. Initial blood gases showed a pH of 7.28 with a pCO2 of 51 and pO2 of 234. Necessary vent changes were done. The most recent blood gas showed a pH of 7.48 with a pCO2 of 28 and pO2 of 229. The morning vent settings include a tidal volume 400 with a rate of 18 and FiO2 of 40% with 5. The setting was adjusted based on the most recent blood gas. I n oted that the patient is also on pressors and overnight the patient has required norepinephrine infusion and currently is running at 0.1 mcg/kg per minute. The patient is also on Lasix drip at 10 mg an hour. He is producing urine output. However, the patient has developed an acute kidney injury. Creatinine was normal at the time of admission on 02/27/2019 and there has been progressive rise in the creatinine which is up to 2.6 at this point in time. He was he was developing fevers with a temperature 11.6 on 03/04/2019. The patient has blood culture sent a blood culture came back positive for enterococcus group D. The patient was on cefazolin. IV Zosyn was added by the primary care team. This morning, the patient is sedated with propofol is currently running at 50 mics. His, comfortable. He is producing urine output. Her net fluid balance is -642 mL for yesterday. His cardiac rhythm is paced. His white cell count is 19.4. He is obviously septic condition with a positive blood culture. UA the time of admission was negative. He has a Diaz catheter in place. Abdomen is soft. His umbilical hernia. Surgical wound site over the left biventricular pacemaker is dry clean and intact. No significant orotracheal secretions. Chest x-ray from today shows cardiomegaly and lower lobe consolidation as the patient is a left lower lobe consolidation of the right upper lobe! The echocardiogram at shown an ejection fraction of 20-25%. There is moderate concentric left adela tricular hypertrophy. There is severe global hypokinesis. No pericardial effusion. The peak gradient across the aortic valve was 35 mmHg. It is a normal functioning bioprosthetic valve. There is moderate mitral regurgitation. Mild pulmonary hypertension. on 03/07/2019 the patient remains sedated and intubated on mechanical ventilator. The patient is on propofol for sedation. The patient is also on a mechanical ventilator on assist control mode with a tidal volume of 000 and the rate of 18 with an FiO2 of 40% and PEEP of 5. The chest x-ray from today shows stable findings and there is left lower lobe consolidation/effusion. ET tube is in a good location. The left ear showed a pH of 7.44 with a pCO2 of 34 and pO2 of 131. Based on this, there is a component of respiratory alkalosis and I dropped a respiratory rate down to 14. The telephone was kept at 500 for now. I took this patient off the Lasix therapy yesterday as the patient's CVP was running low and the patient was also developing acute kidney injury. Today CVP is also low measuring as high as 4-5 millimeters of mercury. Based on that, the patient was started on oral Lasix set of IV Lasix for cardiology. He is p roducing adequate amount of urine output. Creatinine is also improving and is down to 2.1. The patient is afebrile. The patient was seen by infectious disease. Antibiotic adjustments were done and the patient was placed on a combination of Unasyn and gentamicin. No clear indication for endocarditis. The patient has 3 positive blood culture that was positive for E faecalis, in the patient was simplified back to Unasyn and gentamicin was discontinued as the patient was found to be having a Enterococcus faecalis resistant to gentamicin.. The patient is producing adequate amount of urine output. He is still on pressors and the present doses been weaned down to 0.07 micrograms per kilogram per minute of norepinephrine infusion. The patient will be started on enteral feeding for nutritional support. Cardiology is on the case. Cardiac rhythm remains paced. No significant electrolyte imbalance in the patient's white cell count is down to 10.5. 03/08/2019, the patient remains intubated on a mechanical ventilator. The patient remains hemodynamically unstable requiring pressors and the norepinephrine infusion is running at 0.08 mcg/kg per minute. He is also on Prinivil at 40 mics per KG. The patient a mechanical ventilator on assist control mode with a tidal volume of 500 and rate of 18 with an FiO2 of 40% and a PEEP of 5. Chest x-ray is unchanged compared to yesterday and there are some white pulmonary vessel congestion. The patient is producing 25 mL of urine output on an hourly basis. Net fluid balance is positive to 11 mL over the past 24 hours. He is currently on oral Lasix. He is also on norepinephrine infusion. He is on enteral feeding for nutritional support. He is receiving before for sedation. Note that all of the blood cultures came back positive for Enterococcus faecalis. The patient remains on IV Unasyn. Follow-up cultures were obtained to make sure there is no ongoing bacteremia. There is a high likely what that it there may be a component of infective endocarditis. The patient will need a LISSET to evaluate this further. His cardiac rhythm is paced. The fibrillator pocket is clean and intact at this point in time. As for his continued kidney injury, the patient's creatinine is improving and the creatinine is down to 1.72. The white cell count is also down to 10.5 and the patient is responding to IV Unasyn for now. Reevaluated today on 03/09/2019, patient remains on mechanical ventilation, he is still on norepinephrine at 0.05 mcg/kg/m, still on propofol at 50 mcg/kg/m. He is on mechanical ventilation, assist control rate of 18, FiO2 is 40%, PEEP of 5. Tidal volume is 500. Transesophageal echocardiogram is suspicious for vegetations involving the aortic bioprosthetic valve there was also evidence of thickened mitral valve leaflets with moderate mitral regurgitation. His LV function was noted to be impaired ejection fraction of 20%. ABG this morning showed a pO2 of 120 pCO2 of 42 pH of 7.42 11 lites are normal renal profile is abnormal with BUN of 42 creatinine of 1.75 WBC count is 12.3 hemoglobin is 10.2. Chest x-ray is suspicious for mild interstitial edema and small bilateral pleural effusions. There is also some retrocardiac atelectasis. Patient is sedated, on mechanical ventilation, I have no plans to wean the patient today since LISSET was scheduled to be done shortly after I evaluated the patient. Patient was reevaluated today on 03/10/2019, remains on mechanical ventilation, his ventilator settings are assist control rate of 14 FiO2 is 40% PEEP is 5 tidal volume is 500. Patient is on Cardizem drip as per cardiology 5 mg per hour, his also on metoprolol, and he is on norepinephrine at 0.05 mcg/kg/m. Propofol is 25 mcg/kg/m. Chest x-ray showed cardiomegaly and prominent pulmonary vasculature with minimal basilar atelectasis. ABG showed a pO2 of 117 pCO2 of 43 pH of 7.45. WBC count is 14.8 hemoglobin is 10.5. Electrolytes are relatively normal. Renal profile showed a BUN of 42 creatinine of 1.70. Patient remains sedated, however I plan to hold his sedation today, and hopefully assess mental status and decide whether we can proceed with any further weaning trials. Family is at bedside and they were updated on his condition and on the fact that he has endocarditis. Antibiotics were addressed by Dr. Nguyễn, patient is now on Unasyn. He also remains on Rocephin. Reevaluated today on 03/11/2019, remains in the ICU on mechanical ventilation. His ventilator settings are assist control rate of 14, tidal volume is 500 FiO2 of 35% PEEP is 5. Remains on propofol at 30 mcg/kg/m, he is off pressors. ABG this morning showed a pO2 of 103 pCO2 of 39 pH of 7.50. Electrolytes are normal however his BUN is 51 creatinine is 1.84. WBC count is 11.4 hemoglobin is 10.2. Patient remains on nutritional support via enteral feeding. Remains on antibiotics for his underlying endocarditis as per infectious disease. Yesterday the patient was given a sedation interruption, and a trial of weaning, however he was extremely agitated, restless, and could not go on to wean or extubated the patient. This would be reattempted again today. Reevaluated today in the ICU on 03/12/2019, patient remains on mechanical ventilation, his ventilator settings are tidal volume of 500 assist control rate of 14 FiO2 35% PEEP of 5. Patient remains on propofol, presently off norepinephrine, patient was given a weaning trial yesterday, however he became extremely tachycardic, and restless agitated. Today I plan to wean the patient slowly on Precedex to be started after stopping propofol. Patient will be awakened and will be given definitely a weaning trial today. Depending on how he does on pressure support and CPAP, may or may not proceed to full extubation. Chest x-ray is showing mild congestive changes. ABG this morning showed a pO2 of 77 pCO2 of 45 pH of 7.48 electrolytes showed elevated sodium of 148 BUN is 61 creatinine 1.78. Bicarb is 34 WBC count is 10.2 hemoglobin is 10.1. Patient remains on antibiotics, not requiring pressors at this point, has been intermittently on and off norepinephrine Reevaluated today on 03/13/2019, patient was extubated from mechanical ve ntilation yesterday, patient is presently on high flow nasal cannula, O2 saturation is in the mid 90s, tolerated the extubation well since yesterday. Chest x-ray continues to show evidence of mild congestive heart failure. However the patient has elevated sodium today, it is 153, and I have switched his IV fluid to D5W, will hold on the Lasix for now, and he will receive D5W at 50 mL per hour. Patient received Lasix earlier today by nephrology. Patient remains on antibiotics for his endocarditis. And he is hemodynamically stable at present. Reevaluated today on 03/14/2019, patient remains off mechanical ventilation, on high flow nasal cannula, O2 saturation is excellent. Chest x-ray showed mild interstitial edema. Patient continues to have intermittent episodes of confusion and disorientation. CT of the head is negative for septic emboli involving the brain. Sodium remains a bit elevated, and the process of correcting his sodium with D5W. Lasix is still on hold. BUN is 69 creatinine is 1.99 sodium today is 150. is at bedside, and she was updated on his condition, and explained to her that the patient may have metabolic encephalopathy. Related to his hypernatremia and sepsis with bacteremia. Objective - Vital Signs Vital signs: Vital Signs Temp 98.2 F 03/14/19 04:00 Pulse 102 H 03/14/19 13:00 Resp 26 H 03/14/19 13:00 BP 102/81 03/14/19 13:00 Pulse Ox 95 03/14/19 13:00 Intake & Output 03/13/19 03/14/19 03/14/19 18:59 06:59 18:59 Intake Total 826 793 520 Output Total 1505 735 510 Balance -679 58 10 Weight 120.1 kg 119 kg Intake: IV 726 693 420 Ampicillin-Sulbactam 3 gm 200 In Sodium Chloride 0.9% 100 ml @ 200 mls/hr IVPB Q6H [facility] Rx#:[id number] Dextrose 5% in Water 1, 350 600 350 000 ml @ 50 mls/hr IV . Q20H [facility] Rx#:[id number] KVO 140 90 70 pressure bag 36 3 Intake, IV Titration 100 100 100 Amount Ampicillin-Sulbactam 3 gm 100 50 In Sodium Chloride 0.9% 100 ml @ 200 mls/hr IVPB Q6H [facility] Rx#:[id number] cefTRIAXone 2 gm In 100 50 Sodium Chloride 0.9% 50 ml @ 100 mls/hr IVPB Q24HR [facility] Rx#:[id number] Output: Urine 1505 735 510 Other: Voiding Method Indwelling Catheter Indwelling Catheter Indwelling Catheter # Bowel Movements 1 ABP, PAP, CO, CI - Last Documented Arterial Blood Pressure 105/93 - Exam Physical Exam: Revealed a 73-year-old white male, on nasal cannula, in no distress Head: Atraumatic, normocephalic. HEENT:[Neck is supple.] [No neck masses.] [No thyromegaly.] [No JVD.] Moist mucous membranes Chest: Minimal Crackles at the bases noted bilaterally, symmetrical chest expansion.] Cardiac Exam: [Normal S1 and S2, no S3 gallop, 2/6 systolic murmur thought the precordium] Abdomen: [Soft, nontender, no megaly, no rebound, no guarding, normal bowel sounds.] Extremities: [No clubbing, no edema, no cyanosis.] Neurological Exam: Alert and oriented 3, intermittently confused, today he seems to ignore confused compared to yesterday. Psychiatric: Normal mood, blunt affect, patient is definitely confused and possibly delirious Lymphatics: No lymphadenopathy. Skin: No rashes - Labs CBC & Chem 7: 03/14/19 05:35 03/14/19 10:05 Labs: Abnormal Lab Results - Last 24 Hours (Table) 03/13/19 03/13/19 03/14/19 Range/Units 19:43 21:00 01:11 WBC (3.8-10.6) k/uL RBC (4.30-5.90) m/uL Hgb (13.0-17.5) gm/dL Hct (39.0-53.0) % MCHC (31.0-37.0) g/dL Neutrophils # (1.3-7.7) k/uL Sodium (137-145) mmol/L Chloride (98-107) mmol/L BUN (9-20) mg/dL Creatinine (0.66-1.25) mg/dL Glucose (74-99) mg/dL POC Glucose (mg/dL) 143 H 141 H 128 H (75-99) mg/dL Magnesium (1.6-2.3) mg/dL 03/14/19 03/14/19 03/14/19 Range/Units 05:35 05:35 05:35 WBC 14.6 H (3.8-10.6) k/uL RBC 3.83 L (4.30-5.90) m/uL Hgb 10.6 L (13.0-17.5) gm/dL Hct 36.5 L (39.0-53.0) % MCHC 29.1 L (31.0-37.0) g/dL Neutrophils # 12.2 H (1.3-7.7) k/uL Sodium 150 H (137-145) mmol/L Chloride 109 H (98-107) mmol/L BUN 69 H (9-20) mg/dL Creatinine 1.99 H (0.66-1.25) mg/dL Glucose 147 H (74-99) mg/dL POC Glucose (mg/dL) (75-99) mg/dL Magnesium 2.7 H (1.6-2.3) mg/dL 03/14/19 03/14/19 Range/Units 06:52 12:35 WBC (3.8-10.6) k/uL RBC (4.30-5.90) m/uL Hgb (13.0-17.5) gm/dL Hct (39.0-53.0) % MCHC (31.0-37.0) g/dL Neutrophils # (1.3-7.7) k/uL Sodium (137-145) mmol/L Chloride (98-107) mmol/L BUN (9-20) mg/dL Creatinine (0.66-1.25) mg/dL Glucose (74-99) mg/dL POC Glucose (mg/dL) 150 H 135 H (75-99) mg/dL Magnesium (1.6-2.3) mg/dL Microbiology - Last 24 Hours (Table) 03/09/19 09:44 Blood Culture - Preliminary Blood No Growth after 120 hours 03/10/19 12:00 Blood Culture - Preliminary Blood No Growth after 72 hours Assessment and Plan Assessment: Impression: 1 acute hypoxic respiratory failure secondary to cardiogenic shock and septic shock. Patient was extubated successfully on 03/12/2019. 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 3 severe LV dysfunction and cardiomyopathy, ischemic in nature, ejection fraction of 20-25% post-insertion of AICD. 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 6 septic shock secondary to enterococcal infection 7 acute kidney injury secondary to sepsis, ATN, and possibly contrast nephropathy 8 history of underlying COPD, hypertension, hyperlipidemia, obesity, and generalized anxiety disorder. 9 hypernatremia secondary to free water depletion, and diuretics, hence we'll change the IV fluid to D5W, and hydrate the patient cautiously with D5W, and liberalize free water intake 10 acute metabolic encephalopathy secondary to electrolytes imbalance, hypernatremia, and sepsis as well as bacteremia. Recommendation: Continue oxygen at high flow nasal cannula and titrate accordingly keep O2 saturation above 90%. Continue nutritional support Continue antibiotics and/Unasyn and Rocephin Continue GI and DVT prophylaxis Continue to monitor the patient in the ICU, prognosis remains guarded, we will continue to follow. Updated his on his condition, explained to her that he had a normal CT of the head, and we'll continue to monitor closely for his metabolic encephalopathy and his underlying endocarditis. Prognosis is definitely guarded will continue to follow. Time with Patient: Less than 30
--- NOTE | 2019-03-14 15:44 | P.PN ---
Subjective Progress Note Date: 03/14/19 Principal diagnosis: Cardiogenic shock/ acute on chronic systolic CHF Subacute bacterial endocarditis/ septic shock with enterococcus septicemia 03/13/2019, patient was extubated from mechanical ventilation yesterday, patient is presently on high flow nasal cannula, O2 saturation is in the mid 90s, tolerated the extubation well since yesterday. Chest x-ray continues to show evidence of mild congestive heart failure. However the patient has elevated s odium today, it is 153, and I have switched his IV fluid to D5W, will hold on the Lasix for now, and he will receive D5W at 50 mL per hour. Patient received Lasix earlier today by nephrology. Patient remains on antibiotics for his endocarditis. And he is hemodynamically stable at present. Patient is becoming more awake and alert; has been having repeated jerking movements of hand ; CT of head is ordered; 03/14/2019 Patient is seen and evaluated in room at bedside; patient is sitting up in a bedside chair; more alert compared to yesterday Patient had an episode of elevated heart rate and was started on amiodarone bolus and drip; heart rate is well-controlled now CT of head was unremarkable; patient remains on IV antibiotics for endocarditis; Na remains elevated at 150 and patient remains on D5 water; BUN/creatinine is slowly improving at 69/1.99; Lasix remains on hold Objective - Vital Signs Vital signs: Vital Signs Temp 98.2 F 03/14/19 04:00 Pulse 102 H 03/14/19 13:00 Resp 26 H 03/14/19 13:00 BP 102/81 03/14/19 13:00 Pulse Ox 95 03/14/19 13:00 Intake & Output 03/13/19 03/14/19 03/14/19 18:59 06:59 18:59 Intake Total 826 793 520 Output Total 1505 735 510 Balance -679 58 10 Weight 120.1 kg 119 kg Intake: IV 726 693 420 Ampicillin-Sulbactam 3 gm 200 In Sodium Chloride 0.9% 100 ml @ 200 mls/hr IVPB Q6H [facility] Rx#:[id number] Dextrose 5% in Water 1, 350 600 350 000 ml @ 50 mls/hr IV . Q20H [facility] Rx#:[id number] KVO 140 90 70 pressure bag 36 3 Intake, IV Titration 100 100 100 Amount Ampicillin-Sulbactam 3 gm 100 50 In Sodium Chloride 0.9% 100 ml @ 200 mls/hr IVPB Q6H [facility] Rx#:[id number] cefTRIAXone 2 gm In 100 50 Sodium Chloride 0.9% 50 ml @ 100 mls/hr IVPB Q24HR [facility] Rx#:[id number] Output: Urine 1505 735 510 Other: Voiding Method Indwelling Catheter Indwelling Catheter Indwelling Catheter # Bowel Movements 1 ABP, PAP, CO, CI - Last Documented Arterial Blood Pressure 105/93 - Exam PHYSICAL EXAMINATION: GENERAL: The patient is alert and oriented x3, not in any acute distress. Well developed, well nourished. HEENT: Pupils are round and equally reacting to light. EOMI. No scleral icterus. No conjunctival pallor. Normocephalic, atraumatic. No pharyngeal erythema. No thyromegaly. CARDIOVASCULAR: S1 and S2 present. No murmurs, rubs, or gallops. PULMONARY: Chest is clear to auscultation, no wheezing or crackles. ABDOMEN: Soft, nontender, nondistended, normoactive bowel sounds. No palpable organomegaly. MUSCULOSKELETAL: No joint swelling or deformity. EXTREMITIES: No cyanosis, clubbing, or pedal edema. NEUROLOGICAL: Gross neurological examination did not reveal any focal deficits. SKIN: No rashes. - Labs CBC & Chem 7: 03/14/19 05:35 03/14/19 10:05 Labs: Abnormal Lab Results - Last 24 Hours (Table) 03/13/19 03/13/19 03/14/19 Range/Units 19:43 21:00 01:11 WBC (3.8-10.6) k/uL RBC (4.30-5.90) m/uL Hgb (13.0-17.5) gm/dL Hct (39.0-53.0) % MCHC (31.0-37.0) g/dL Neutrophils # (1.3-7.7) k/uL Sodium (137-145) mmol/L Chloride (98-107) mmol/L BUN (9-20) mg/dL Creatinine (0.66-1.25) mg/dL Glucose (74-99) mg/dL POC Glucose (mg/dL) 143 H 141 H 128 H (75-99) mg/dL Magnesium (1.6-2.3) mg/dL 03/14/19 03/14/19 03/14/19 Range/Units 05:35 05:35 05:35 WBC 14.6 H (3.8-10.6) k/uL RBC 3.83 L (4.30-5.90) m/uL Hgb 10.6 L (13.0-17.5) gm/dL Hct 36.5 L (39.0-53.0) % MCHC 29.1 L (31.0-37.0) g/dL Neutrophils # 12.2 H (1.3-7.7) k/uL Sodium 150 H (137-145) mmol/L Chloride 109 H (98-107) mmol/L BUN 69 H (9-20) mg/dL Creatinine 1.99 H (0.66-1.25) mg/dL Glucose 147 H (74-99) mg/dL POC Glucose (mg/dL) (75-99) mg/dL Magnesium 2.7 H (1.6-2.3) mg/dL 03/14/19 03/14/19 Range/Units 06:52 12:35 WBC (3.8-10.6) k/uL RBC (4.30-5.90) m/uL Hgb (13.0-17.5) gm/dL Hct (39.0-53.0) % MCHC (31.0-37.0) g/dL Neutrophils # (1.3-7.7) k/uL Sodium (137-145) mmol/L Chloride (98-107) mmol/L BUN (9-20) mg/dL Creatinine (0.66-1.25) mg/dL Glucose (74-99) mg/dL POC Glucose (mg/dL) 150 H 135 H (75-99) mg/dL Magnesium (1.6-2.3) mg/dL Microbiology - Last 24 Hours (Table) 03/10/19 12:00 Blood Culture - Preliminary Blood No Growth after 96 hours 03/09/19 09:44 Blood Culture - Preliminary Blood No Growth after 120 hours Assessment and Plan Assessment: Cardiogenic shock Acute on chronic systolic congestive heart failure with ejection fraction 20- 25%, on the top of history of severe ischemic cardiomyopathy. 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 Continue with antibiotics as per infectious disease recommendation, for 6 more weeks and currently he is on Unasyn and Lasix, follow-up final culture results. Patient remains intubated and measures by critical care team. Weaning trial as per pulmonary/critical team. Patient is on Lasix. . Follow-up cardiology recommendations. Follow-up WBC and creatinine.Labs and medication were reviewed. Nephrology consult for renal disease. Continue same treatment. Continue with symptomatic treatment. Resume home medication. Monitor lytes and vitals. DVT and GI prophylaxis. Further recommendations of the clinical course of the patient DVT prophylaxis: Subcutaneous heparin GI Prophylaxis: Protonix Prognosis is extremely poor and guarded Time with Patient: Greater than 30
[2019-03-14 17:03] LABS: Glucose,Whole Blood 154 mg/dL (75-99)
[2019-03-14 21:18] LABS: Glucose,Whole Blood 139 mg/dL (75-99)
[2019-03-14] MEDS: HYDROmorphone 1 MG/ML 1 ML SYRINGE IVP PRN (21:44)
[2019-03-14] MEDS: CLOPIDOGREL 75 MG TAB PO SCH (21:44)
[2019-03-15 01:00] LABS: Glucose,Whole Blood 139 mg/dL (75-99)
[2019-03-15 01:03] LABS: ABG Base Excess 7.3 mmol/L; ABG HCO3 32 mmol/L (21-25); ABG Oxygen Saturation 88.9 % (94-97); ABG PCO2 48 mmHg (35-45); ABG PH 7.43 (7.35-7.45); ABG PO2 61 mmHg (83-108); ABG TCO2 33 mmol/L (19-24); Allen Test Performed? Yes
[2019-03-15] MEDS: DEXTROSE 5% IN WATER 1,000 ML IV SCH (02:15)
[2019-03-15] MEDS: AMPICILLIN-SULBACTAM 3 GM in SODIUM CHLORIDE 0.9% 100 ML IVPB SCH ×4 (03:13→20:32)
[2019-03-15] MEDS: AMIODARONE 300 MG in DEXTROSE 5% IN WATER 250 ML IV SCH ×2 (04:07)
[2019-03-15 05:07] LABS: Calcium 8.9 mg/dL (8.4-10.2); Potassium 3.8 mmol/L (3.5-5.1)
[2019-03-15 05:09] LABS: Basophils # (A) 0.1 k/uL (0-0.2); Basophils % (A) 1 %; Eosinophils # (A) 0.1 k/uL (0-0.7); Eosinophils % (A) 1 %; HCT 36.5 % (39.0-53.0); HGB 10.9 gm/dL (13.0-17.5); Hypochromasia Marked; Lymphocytes # (A) 1.5 k/uL (1.0-4.8); Lymphocytes % (A) 9 %; MCH 28.6 pg (25.0-35.0); MCHC 29.9 g/dL (31.0-37.0); MCV 95.7 fL (80.0-100.0); Mean Platelet Volume 7.7; Monocytes # (A) 0.8 k/uL (0-1.0); Monocytes % (A) 5 %; Neutrophils % (A) 83 %; Platelet Count 339 k/uL (150-450); RBC 3.81 m/uL (4.30-5.90); RDW 14.2 % (11.5-15.5); WBC 15.6 k/uL (3.8-10.6)
[2019-03-15 06:45] LABS: Glucose,Whole Blood 149 mg/dL (75-99)
--- NOTE | 2019-03-15 07:04 | XR ---
EXAMINATION TYPE: XR chest 1V DATE OF EXAM: 03/15/2019 HISTORY: SOB. REFERENCE: Previous study dated 03/14/2019. FINDINGS: There has been a midline sternotomy. There is a multilead pacing device on the left. There is a right internal jugular catheter in place. Its tip is at the cavoatrial junction. The heart is enlarged. There is worsening vascular congestion and interstitial change. There are smal l, bilateral effusions greater on the left than the right. IMPRESSION: WORSENING CHANGES OF CONGESTIVE HEART FAILURE.
[2019-03-15] MEDS ORDERED: POTASSIUM CHLORIDE 20 MEQ in WATER FOR INJECTION 1 100ML.BAG IVPB ONE (07:30)
[2019-03-15] MEDS: INSULIN ASPART (NovoLOG) 100 UNIT/ML VIAL SQ SCH ×4 (07:54→21:07)
[2019-03-15 08:02] LABS: Glucose,Whole Blood 151 mg/dL (75-99)
[2019-03-15] MEDS: IPRATROPIUM 0.5 MG/2.5 ML NEBU INHALATION SCH ×4 (08:12→19:41)
[2019-03-15] MEDS: FUROSEMIDE 10 MG/ML 4 ML VIAL IV SCH (09:02)
[2019-03-15] MEDS: HEPARIN SODIUM,PORCINE 5,000 UNIT/ML 1 ML VIAL SQ SCH ×2 (09:02→20:25)
[2019-03-15] MEDS: AMIODARONE 200 MG TAB PO SCH ×2 (09:02→20:29)
[2019-03-15] MEDS: ATORVASTATIN 40 MG TAB PO SCH (09:02)
[2019-03-15] MEDS: PANTOPRAZOLE 40 MG/10 ML VIAL IVP SCH (09:02)
[2019-03-15] MEDS: ASPIRIN 81 MG PO SCH (09:02)
[2019-03-15] MEDS: METOPROLOL TARTRATE 50 MG TAB PO SCH ×3 (09:02→21:26)
[2019-03-15] MEDS: NOREPINEPHRINE 4 MG in SODIUM CHLORIDE 0.9% 250 ML IV SCH (09:03)
--- NOTE | 2019-03-15 10:03 | P.PN ---
Subjective Progress Note Date: 03/15/19 This is a 73-year-old male with known history of ischemic cardiomyopathy along with known history of coronary artery disease and previous aortic valve replacement, AVR, and previous coronary artery bypass surgery. He presented on March 01 because of chest pain and found to have non-STEMI. He underwent cardiac catheterization with Dr. Juarez on 03/03 and the patient was found to have patent stent to the distal left mainstem to proximal circumflex, patent BELTRAN to LAD, chronic totally occluded RCA. Recommendations were mainly to maximize medical management. Patient was apparently having runs of V. tach and a consult was added for Dr. Ho. Patient subsequently underwent a biventricular ICD implantation on March 05. Patient was intubated prior to the procedure as apparently he is unable to lay flat for this. He received 700 mL of fluid during procedure. He was extubated last evening for only 3 minutes and was re- intubated. He was given Lasix 40 mg IV push followed by Lasix drip at 10 mg per hour. The Lasix to was discontinued this morning. Patient remains intubated, on sedation and on levo fed. His chest x-ray this morning reveals a right upper lobe pneumonia and probable heart failure. Patient has been running fevers up to 101.6 on evening of 925. White count 20.6, renal function is worsening with a BUN 45 and creatinine 2.6. Urinalysis was clear with nitrate and l eukoesterase negative. Urine output has been on the lower side running about 50 mL per hour or less. Blood culture from 03/04 is group D enterococcus and thus this consult was requested. 03/09/2019 the patient had evidence of isolated enterococcal bacteremia. The case was discussed with cardiology and a LISSET has been performed today which is verified evidence of a vegetation on the bioprosthetic aortic valve. There is no evidence of any ring abscess or of extensive valvular disease. The patient has shown some improvement in that his fever is improved and his leukocytosis is improving. 03/10/2019 patient remains intubated sedated and mechanically ventilated. His oxygen requirements have decreased in with increased dose of beta russell treatment started as some further improvement of his rate and dysrhythmia. He has been seen by cardiovascular surgeon. 03/11/2019 patient had weaning trial not successful to be retried tomorrow. Off of vasopressor therapy and stable. 03/12/2019 patient has had improvement of his status. He is less sedated. He is on CPAP and doing well likely be extubated when he is a bit more awake. 03/13/2019 the patient is extubated sitting upright feeling considerably better able to eat some nutrition. Not having much chest pain shortness of breath is improved. 03/15/2019 Patient has had some further improvement. He is less short of breath. He is without significant discomforts. Able to eat without difficulties. Objective - Vital Signs Vital signs: Vital Signs Temp 98.4 F 03/15/19 04:00 Pulse 99 03/15/19 08:22 Resp 24 03/15/19 07:00 BP 131/92 03/15/19 07:00 Pulse Ox 96 03/15/19 07:00 Intake & Output 03/14/19 03/15/19 03/15/19 18:59 06:59 18:59 Intake Total 880 1118.333 60 Output Total 825 545 40 Balance 55 573.333 20 Weight 120.5 kg Intake: IV 780 660 60 Dextrose 5% in Water 1, 650 550 50 000 ml @ 50 mls/hr IV . Q20H DEANDRA Rx#:[id number] KVO 130 110 10 Intake, IV Titration 100 458.333 Amount Amiodarone 300 mg In 458.333 Dextrose 5% in Water 250 ml @ 0.5 MG/MIN 25 mls/hr IV .Q10H DEANDRA Rx#: [id number] Ampicillin-Sulbactam 3 gm 50 In Sodium Chloride 0.9% 100 ml @ 200 mls/hr IVPB Q6H DEANDRA Rx#:[id number] cefTRIAXone 2 gm In 50 Sodium Chloride 0.9% 50 ml @ 100 mls/hr IVPB Q24HR DEANDRA Rx#:[id number] Output: Urine 825 545 40 Other: Voiding Method Indwelling Catheter Indwelling Catheter # Bowel Movements 1 1 ABP, PAP, CO, CI - Last Documented Arterial Blood Pressure 105/93 - Exam Gen: This is a 73-year-old male. He has tolerated extubation well. Not having much shortness of breath. On the exam he has no tenderness over the pacemaker and does not recall it even being there. HEENT: Head is atraumatic, normocephalic. Pupils equal, round. Sclerae is anicteric. Conjunctiva pink. Oral mucous membranes are moist. Appears patient is edentulous. ET and gastric tube are in place orally. NECK: Supple. No JVD. No lymphadenopathy. No thyromegaly. LUNGS: Symmetrical air entry with few expiratory wheezes basilar crackles or bronchial sounds HEART: Regular rate and rhythm. No murmur. There is a dressing over the AICD, left upper chest wall, no drainage. No significant edema around the area. ABDOMEN: Soft. Bowel sounds are present. No masses. No tenderness. No redness under her abdominal fold. Diaz catheter draining clear dmitry urine. EXTREMITIES: Trace bilateral pedal edema. No wounds, no cellulitis noted. Dorsalis pedis 1+ bilaterally. NEUROLOGICAL: Patient is now very little sedation much more interactive - Labs CBC & Chem 7: 03/15/19 04:17 03/15/19 04:21 Labs: Abnormal Lab Results - Last 24 Hours (Table) 03/14/19 03/14/19 03/14/19 Range/Units 12:35 16:59 21:15 WBC (3.8-10.6) k/uL RBC (4.30-5.90) m/uL Hgb (13.0-17.5) gm/dL Hct (39.0-53.0) % MCHC (31.0-37.0) g/dL Neutrophils # (1.3-7.7) k/uL ABG pCO2 (35-45) mmHg ABG pO2 (83-108) mmHg ABG HCO3 (21-25) mmol/L ABG Total CO2 (19-24) mmol/L ABG O2 Saturation (94-97) % Sodium (137-145) mmol/L Chloride (98-107) mmol/L BUN (9-20) mg/dL Creatinine (0.66-1.25) mg/dL Glucose (74-99) mg/dL POC Glucose (mg/dL) 135 H 154 H 139 H (75-99) mg/dL 03/15/19 03/15/19 03/15/19 Range/Units 00:45 01:00 04:17 WBC 15.6 H (3.8-10.6) k/uL RBC 3.81 L (4.30-5.90) m/uL Hgb 10.9 L (13.0-17.5) gm/dL Hct 36.5 L (39.0-53.0) % MCHC 29.9 L (31.0-37.0) g/dL Neutrophils # 13.0 H (1.3-7.7) k/uL ABG pCO2 48 H (35-45) mmHg ABG pO2 61 L (83-108) mmHg ABG HCO3 32 H (21-25) mmol/L ABG Total CO2 33 H (19-24) mmol/L ABG O2 Saturation 88.9 L (94-97) % Sodium (137-145) mmol/L Chloride (98-107) mmol/L BUN (9-20) mg/dL Creatinine (0.66-1.25) mg/dL Glucose (74-99) mg/dL POC Glucose (mg/dL) 139 H (75-99) mg/dL 03/15/19 03/15/19 03/15/19 Range/Units 04:21 06:43 07:48 WBC (3.8-10.6) k/uL RBC (4.30-5.90) m/uL Hgb (13.0-17.5) gm/dL Hct (39.0-53.0) % MCHC (31.0-37.0) g/dL Neutrophils # (1.3-7.7) k/uL ABG pCO2 (35-45) mmHg ABG pO2 (83-108) mmHg ABG HCO3 (21-25) mmol/L ABG Total CO2 (19-24) mmol/L ABG O2 Saturation (94-97) % Sodium 146 H (137-145) mmol/L Chloride 108 H (98-107) mmol/L BUN 75 H (9-20) mg/dL Creatinine 2.19 H (0.66-1.25) mg/dL Glucose 160 H (74-99) mg/dL POC Glucose (mg/dL) 149 H 151 H (75-99) mg/dL Microbiology - Last 24 Hours (Table) 03/10/19 12:00 Blood Culture - Preliminary Blood No Growth after 96 hours 03/09/19 09:44 Blood Culture - Preliminary Blood No Growth after 120 hours Laboratory Results WBC 15.6 k/uL (3.8-10.6) H 03/15/19 04:17 RBC 3.81 m/uL (4.30-5.90) L 03/15/19 04:17 Hgb 10.9 gm/dL (13.0-17.5) L 03/15/19 04:17 Hct 36.5 % (39.0-53.0) L 03/15/19 04:17 MCV 95.7 fL (80.0-100.0) 03/15/19 04:17 MCH 28.6 pg (25.0-35.0) 03/15/19 04:17 MCHC 29.9 g/dL (31.0-37.0) L 03/15/19 04:17 RDW 14.2 % (11.5-15.5) 03/15/19 04:17 Plt Count 339 k/uL (150-450) 03/15/19 04:17 Neutrophils % 83 % 03/15/19 04:17 Lymphocytes % 9 % 03/15/19 04:17 Monocytes % 5 % 03/15/19 04:17 Eosinophils % 1 % 03/15/19 04:17 Basophils % 1 % 03/15/19 04:17 Neutrophils # 13.0 k/uL (1.3-7.7) H 03/15/19 04:17 Lymphocytes # 1.5 k/uL (1.0-4.8) 03/15/19 04:17 Monocytes # 0.8 k/uL (0-1.0) 03/15/19 04:17 Eosinophils # 0.1 k/uL (0-0.7) 03/15/19 04:17 Basophils # 0.1 k/uL (0-0.2) 03/15/19 04:17 Hypochromasia Marked 03/15/19 04:17 Anisocytosis Slight 03/01/19 15:07 PT 11.1 sec (9.0-12.0) 03/10/19 10:35 INR 1.0 (<1.2) 03/10/19 10:35 APTT 53.7 sec (22.0-30.0) H 03/02/19 21:57 Sample Site rbach 03/15/19 01:00 ABG pH 7.43 (7.35-7.45) 03/15/19 01:00 ABG pCO2 48 mmHg (35-45) H 03/15/19 01:00 ABG pO2 61 mmHg (83-108) L 03/15/19 01:00 ABG HCO3 32 mmol/L (21-25) H 03/15/19 01:00 ABG Total CO2 33 mmol/L (19-24) H 03/15/19 01:00 ABG O2 Saturation 88.9 % (94-97) L 03/15/19 01:00 ABG Base Excess 7.3 mmol/L 03/15/19 01:00 Manuel Test Yes 03/15/19 01:00 FiO2 36 % 03/15/19 01:00 Sodium 146 mmol/L (137-145) H 03/15/19 04:21 Potassium 3.8 mmol/L (3.5-5.1) 03/15/19 04:21 Chloride 108 mmol/L (98-107) H 03/15/19 04:21 Carbon Dioxide 25 mmol/L (22-30) 03/15/19 04:21 Anion Gap 13 mmol/L 03/15/19 04:21 BUN 75 mg/dL (9-20) H 03/15/19 04:21 Creatinine 2.19 mg/dL (0.66-1.25) H 03/15/19 04:21 Est GFR (CKD-EPI)AfAm 34 (>60 ml/min/1.73 sqM) 03/15/19 04:21 Est GFR (CKD-EPI)NonAf 29 (>60 ml/min/1.73 sqM) 03/15/19 04:21 Glucose 160 mg/dL (74-99) H 03/15/19 04:21 POC Glucose (mg/dL) 151 mg/dL (75-99) H 03/15/19 07:48 POC Glu Track Sweeper CHRIS Butch Luu 03/15/19 07:48 Plasma Lactic Acid [place] 1.2 mmol/L (0.7-2.0) 03/06/19 10:10 Calcium 8.9 mg/dL (8.4-10.2) 03/15/19 04:21 Phosphorus 3.8 mg/dL (2.5-4.5) 03/09/19 04:30 Magnesium 2.7 mg/dL (1.6-2.3) H 03/14/19 05:35 Total Bilirubin 0.9 mg/dL (0.2-1.3) 03/01/19 15:07 AST 116 U/L (17-59) H 03/13/19 05:00 ALT 103 U/L (21-72) H 03/13/19 05:00 Alkaline Phosphatase 166 U/L (38-126) H 03/13/19 05:00 Troponin I 1.080 ng/mL (0.000-0.034) H* 03/02/19 04:09 NT-Pro-B Natriuret Pep 71685 pg/mL 03/01/19 15:07 Total Protein 6.8 g/dL (6.3-8.2) 03/01/19 15:07 Albumin 3.4 g/dL (3.5-5.0) L 03/01/19 15:07 Triglycerides 105 mg/dL (<150) 03/02/19 04:09 Cholesterol 188 mg/dL (<200) 03/02/19 04:09 LDL Cholesterol, Calc 148 mg/dL (0-99) H 03/02/19 04:09 HDL Cholesterol 19 mg/dL (40-60) L 03/02/19 04:09 TSH 3.570 mIU/L (0.465-4.680) 03/04/19 02:17 Urine Color Yellow 03/04/19 23:09 Urine Appearance Clear (Clear) 03/04/19 23:09 Urine pH 5.0 (5.0-8.0) 03/04/19 23:09 Ur Specific [place] 1.013 (1.001-1.035) 03/04/19 23:09 Urine Protein Trace (Negative) H 03/04/19 23:09 Urine Glucose (UA) Negative (Negative) 03/04/19 23:09 Urine Ketones Negative (Negative) 03/04/19 23:09 Urine Blood Negative (Negative) 03/04/19 23:09 Urine Nitrite Negative (Negative) 03/04/19 23:09 Urine Bilirubin Negative (Negative) 03/04/19 23:09 Urine Urobilinogen <2.0 mg/dL (<2.0) 03/04/19 23:09 Ur Leukocyte Esterase Negative (Negative) 03/04/19 23:09 Microbiology 03/10/19 12:00 Blood Blood Culture - Preliminary No Growth after 96 hours 03/09/19 09:44 Blood Blood Culture - Preliminary No Growth after 120 hours 03/08/19 08:46 Blood Blood Culture Gram Stain - Final 03/08/19 08:46 Blood Blood Culture - Final Enterococcus faecalis 03/08/19 07:30 Blood Blood Culture Gram Stain - Final 03/08/19 07:30 Blood Blood Culture - Final Enterococcus faecalis 03/04/19 18:31 Blood Blood Culture Gram Stain - Final 03/04/19 18:31 Blood Blood Culture - Final Enterococcus faecalis 03/06/19 09:55 Blood Blood Culture Gram Stain - Final 03/06/19 09:55 Blood Blood Culture - Final Enterococcus faecalis 03/06/19 10:10 Blood Blood Culture Gram Stain - Final 03/06/19 10:10 Blood Blood Culture - Final Enterococcus faecalis 03/06/19 02:42 Blood Blood Culture Gram Stain - Final 03/06/19 02:42 Blood Blood Culture - Final Enterococcus faecalis 03/08/19 07:30 Blood Blood Culture - Final 03/08/19 08:46 Blood Blood Culture - Final 03/06/19 11:12 Sputum Gram Stain - Final 03/06/19 11:12 Sputum Sputum Culture - Final 03/05/19 17:44 Blood Blood Culture Gram Stain - Final 03/05/19 17:44 Blood Blood Culture - Final Enterococcus faecalis 03/06/19 10:10 Blood Blood Culture - Final 03/06/19 09:55 Blood Blood Culture - Final 03/05/19 17:44 Blood Blood Culture - Final 03/06/19 02:42 Blood Blood Culture - Final 03/04/19 18:31 Blood Blood Culture - Final Assessment and Plan (1) Acute on chronic systolic CHF (congestive heart failure) Current Visit: Yes Status: Acute Code(s): I50.23 - ACUTE ON CHRONIC SYSTOLIC (CONGESTIVE) HEART FAILURE SNOMED Code(s): 146368289 (2) Cardiomyopathy Current Visit: Yes Status: Acute Code(s): I42.9 - CARDIOMYOPATHY, UNSPECIFIED SNOMED Code(s): 42418550 (3) Prosthetic valve endocarditis Narrative/Plan: 73-year-old gentleman with aortic valve replacement and prior CABG presented to Hospital and some he in worsening of his ischemic cardiomyopathy. He underwent biventricular ICD implantable pacemaker March 05. The he developed a fever and there are now positive blood cultures. The laboratory has identified enterococcus in the blood cultures. There is no specific other site of infection at this time other than the bacteremia. With aortic valve replacement concerns underlying endocarditis. Consequently antimicrobial therapy is transitioned to ampicillin sulbactam and gentamicin in synergistic dosing dosed by the pharmacy. Aware of his renal insufficiency however until bacteremia clears and there is a definitive alt ernative cause of the bacteremia would require gentamicin therapy for synergy. Follow blood cultures are requested. The patient has had central line and A- line just placed by the inspector production plastic parts. He is receiving fluid resuscitation and vasopressor therapy. 03/09/2019 the patient has had a LISSET performed today which verifies evidence of vegetation on the bioprosthetic aortic valve. The patient has many positive blood cultures. Enterococcus has been isolated. The patient has evidence of gentamicin synergy resistance. Gentamicin was discontinued. With this finding ceftriaxone is added to the Unasyn in attempts for synergy. Follow blood cultures will be obtained. The patient's renal failure is improving. He seemingly more stable. Hopefully he will now start to have evidence of clearance of his bacteremia with the synergistic combination. 03/10/2019 Patient remains intubated sedated and ventilated however is decreased therapy. The patient's itching with Unasyn and Rocephin for the enterococcus endocarditis verified with a LISSET yesterday. Cardiology is following. 03/11/2019 patient has improved and will have further weaning trial tomorrow. The blood cultures are now negative over 48 hours, having a good response to antibiotic therapy. The synergistic therapy is now showing response and will continue for 6 weeks. 03/12/2019 the patient is having some improvement will likely be extubated today. Once the patient has consistently negative blood cultures IV access is required that he may receive his 6 weeks of intravenous antibiotic therapy with Unasyn and Rocephin, there are 2 negative blood cultures at this time. 03/13/2019 the patient has had further improvement of his status. He has now been extubated and doing well on nasal cannula oxygen. Not having significant hypotension. He is showing some ongoing improvement. 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 Likely have IV access placed soon and arrangements for the 6 weeks of ampicillin sulbactam and daptomycin which he is tolerating well. 03/15/2019 patient has had some further improvement of his status. Sitting upright able to eat some breakfast. Shortness of breath is improved. He is s till with significant generalized weakness. Appears likely he will be in need of rehabilitation at discharge. 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 He was to have follow-up LISSET arranged in the future. Current Visit: Yes Status: Acute Code(s): T82.6XXA - INFECT/INFLM REACTION DUE TO CARDIAC VALVE PROSTHESIS, INIT; I38 - ENDOCARDITIS, VALVE UNSPECIFIED SNOMED Code(s): 288762449
[2019-03-15] MEDS: HYDROmorphone 1 MG/ML 1 ML SYRINGE IVP PRN (10:05)
[2019-03-15 11:38] LABS: Glucose,Whole Blood 120 mg/dL (75-99)
--- NOTE | 2019-03-15 12:34 | P.PN ---
Subjective Progress Note Date: 03/15/19 Principal diagnosis: Cardiogenic shock/ acute on chronic systolic CHF Subacute bacterial endocarditis/ septic shock with enterococcus septicemia 03/13/2019, patient was extubated from mechanical ventilation yesterday, patient is presently on high flow nasal cannula, O2 saturation is in the mid 90s, tolerated the extubation well since yesterday. Chest x-ray continues to show evidence of mild congestive heart failure. However the patient has elevated s odium today, it is 153, and I have switched his IV fluid to D5W, will hold on the Lasix for now, and he will receive D5W at 50 mL per hour. Patient received Lasix earlier today by nephrology. Patient remains on antibiotics for his endocarditis. And he is hemodynamically stable at present. Patient is becoming more awake and alert; has been having repeated jerking movements of hand ; CT of head is ordered; 03/14/2019 Patient is seen and evaluated in room at bedside; patient is sitting up in a bedside chair; more alert compared to yesterday Patient had an episode of elevated heart rate and was started on amiodarone bolus and drip; heart rate is well-controlled now CT of head was unremarkable; patient remains on IV antibiotics for endocarditis; Na remains elevated at 150 and patient remains on D5 water; BUN/creatinine is slowly improving at 69/1.99; Lasix remains on hold 03/15/2019 Patient is seen and evaluated for follow-up in ICU; continues to have further improvement of his status. Sitting upright able to eat some breakfast. Sh ortness of breath is improved. He is still with significant generalized weakness. Vital signs ; afebrile, pulse 99, respiration 24 and blood pressure of 131/92 Lab review shows a white blood count of 15.6, hemoglobin of 10.9 and platelet count of 339; sodium level is improved at 146, BUN 75 with creatinine of 2.19; Lasix remains on hold and patient remains on D5 water Possibility of rehabilitation at discharge. 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 He was to have follow-up LISSET arranged in the future. Objective - Vital Signs Vital signs: Vital Signs Temp 98.4 F 03/15/19 04:00 Pulse 99 03/15/19 08:22 Resp 24 10/06/19 07:00 BP 131/92 03/15/19 07:00 Pulse Ox 96 03/15/19 07:00 Intake & Output 03/14/19 03/15/19 03/15/19 18:59 06:59 18:59 Intake Total 880 1118.333 60 Output Total 825 545 40 Balance 55 573.333 20 Weight 120.5 kg Intake: IV 780 660 60 Dextrose 5% in Water 1, 650 550 50 000 ml @ 50 mls/hr IV . Q20H DEANDRA Rx#:[id number] KVO 130 110 10 Intake, IV Titration 100 458.333 Amount Amiodarone 300 mg In 458.333 Dextrose 5% in Water 250 ml @ 0.5 MG/MIN 25 mls/hr IV .Q10H DEANDRA Rx#: [id number] Ampicillin-Sulbactam 3 gm 50 In Sodium Chloride 0.9% 100 ml @ 200 mls/hr IVPB Q6H DEANDRA Rx#:[id number] cefTRIAXone 2 gm In 50 Sodium Chloride 0.9% 50 ml @ 100 mls/hr IVPB Q24HR DEANDRA Rx#:[id number] Output: Urine 825 545 40 Other: Voiding Method Indwelling Catheter Indwelling Catheter # Bowel Movements 1 1 ABP, PAP, CO, CI - Last Documented Arterial Blood Pressure 105/93 - Exam PHYSICAL EXAMINATION: GENERAL: The patient is alert and oriented x3, not in any acute distress. Well developed, well nourished. HEENT: Pupils are round and equally reacting to light. EOMI. No scleral icterus. No conjunctival pallor. Normocephalic, atraumatic. No pharyngeal erythema. No thyromegaly. CARDIOVASCULAR: S1 and S2 present. No murmurs, rubs, or gallops. PULMONARY: Chest is clear to auscultation, no wheezing or crackles. ABDOMEN: Soft, nontender, nondistended, normoactive bowel sounds. No palpable organomegaly. MUSCULOSKELETAL: No joint swelling or deformity. EXTREMITIES: No cyanosis, clubbing, or pedal edema. NEUROLOGICAL: Gross neurological examination did not reveal any focal deficits. SKIN: No rashes. - Labs CBC & Chem 7: 03/15/19 04:17 03/15/19 04:21 Labs: Abnormal Lab Results - Last 24 Hours (Table) 03/14/19 03/14/19 03/14/19 Range/Units 12:35 16:59 21:15 WBC (3.8-10.6) k/uL RBC (4.30-5.90) m/uL Hgb (13.0-17.5) gm/dL Hct (39.0-53.0) % MCHC (31.0-37.0) g/dL Neutrophils # (1.3-7.7) k/uL ABG pCO2 (35-45) mmHg ABG pO2 (83-108) mmHg ABG HCO3 (21-25) mmol/L ABG Total CO2 (19-24) mmol/L ABG O2 Saturation (94-97) % Sodium (137-145) mmol/L Chloride (98-107) mmol/L BUN (9-20) mg/dL Creatinine (0.66-1.25) mg/dL Glucose (74-99) mg/dL POC Glucose (mg/dL) 135 H 154 H 139 H (75-99) mg/dL 03/15/19 03/15/19 03/15/19 Range/Units 00:45 01:00 04:17 WBC 15.6 H (3.8-10.6) k/uL RBC 3.81 L (4.30-5.90) m/uL Hgb 10.9 L (13.0-17.5) gm/dL Hct 36.5 L (39.0-53.0) % MCHC 29.9 L (31.0-37.0) g/dL Neutrophils # 13.0 H (1.3-7.7) k/uL ABG pCO2 48 H (35-45) mmHg ABG pO2 61 L (83-108) mmHg ABG HCO3 32 H (21-25) mmol/L ABG Total CO2 33 H (19-24) mmol/L ABG O2 Saturation 88.9 L (94-97) % Sodium (137-145) mmol/L Chloride (98-107) mmol/L BUN (9-20) mg/dL Creatinine (0.66-1.25) mg/dL Glucose (74-99) mg/dL POC Glucose (mg/dL) 139 H (75-99) mg/dL 03/15/19 03/15/19 03/15/19 Range/Units 04:21 06:43 07:48 WBC (3.8-10.6) k/uL RBC (4.30-5.90) m/uL Hgb (13.0-17.5) gm/dL Hct (39.0-53.0) % MCHC (31.0-37.0) g/dL Neutrophils # (1.3-7.7) k/uL ABG pCO2 (35-45) mmHg ABG pO2 (83-108) mmHg ABG HCO3 (21-25) mmol/L ABG Total CO2 (19-24) mmol/L ABG O2 Saturation (94-97) % Sodium 146 H (137-145) mmol/L Chloride 108 H (98-107) mmol/L BUN 75 H (9-20) mg/dL Creatinine 2.19 H (0.66-1.25) mg/dL Glucose 160 H (74-99) mg/dL POC Glucose (mg/dL) 149 H 151 H (75-99) mg/dL Microbiology - Last 24 Hours (Table) 03/10/19 12:00 Blood Culture - Preliminary Blood No Growth after 96 hours 03/09/19 09:44 Blood Culture - Preliminary Blood No Growth after 120 hours Assessment and Plan Assessment: Cardiogenic shock Acute on chronic systolic congestive heart failure with ejection fraction 20- 25%, on the top of history of severe ischemic cardiomyopathy. 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 Continue with antibiotics as per infectious disease recommendation, for 6 more weeks and currently he is on Unasyn and Lasix, follow-up final culture results. Patient remains intubated and measures by critical care team. Weaning trial as per pulmonary/critical team. Patient is on Lasix. . Follow-up cardiology recommendations. Follow-up WBC and creatinine.Labs and medication were reviewed. Nephrology consult for renal disease. Continue same treatment. Continue with symptomatic treatment. Resume home medication. Monitor lytes and vitals. DVT and GI prophylaxis. Further recommendations of the clinical course of the patient DVT prophylaxis: Subcutaneous heparin GI Prophylaxis: Protonix Prognosis is extremely poor and guarded Time with Patient: Greater than 30
--- NOTE | 2019-03-15 12:42 | P.PN ---
Subjective Progress Note Date: 03/15/19 Principal diagnosis: Acute hypoxic respiratory failure secondary to cardiogenic shock, and septic shock. Acute endocarditis. This is a 71-year-old male patient with known history of ischemic cardiomyopathy along with known history of coronary artery disease and previous aortic valve replacement, AVR, and previous coronary artery bypass surgery, who presented to the hospital because of chest pain and non-STEMI. The patient has had previous catheterizations with stenting done in the distal left main as well as the proximal circumflex. He has a chronically totally occluded RCA. As mentioned, the patient was admitted with chest pain or shortness of breath and acute non-S RAFAELA. The patient underwent another cardiac catheterization and the patient was found to have taken stent to the distal left mainstem to proximal circumflex, patent BELTRAN to LAD, chronic totally occluded RCA. Recommendations were mainly to maximize medical management. The patient was being treated for congestion heart failure. He was receiving Lasix drip and he was having ongoing orthopnea. He was taken yesterday to the [facility] and the patient was given biventricular pacing/AICD. Noted postop, the patient was extubated. He became short of breath and went into significant amount of respiratory distress and within 10 minutes she had to be reintubated. He was brought into the intensive care unit intubated on a mechanical ventilator. Initial blood gases showed a pH of 7.28 with a pCO2 of 51 and pO2 of 234. Necessary vent changes were done. The most recent blood gas showed a pH of 7.48 with a pCO2 of 28 and pO2 of 229. The morning vent settings include a tidal volume 400 with a rate of 18 and FiO2 of 40% with 5. The setting was adjusted based on the most recent blood gas. I n oted that the patient is also on pressors and overnight the patient has required norepinephrine infusion and currently is running at 0.1 mcg/kg per minute. The patient is also on Lasix drip at 10 mg an hour. He is producing urine output. However, the patient has developed an acute kidney injury. Creatinine was normal at the time of admission on 02/27/2019 and there has been progressive rise in the creatinine which is up to 2.6 at this point in time. He was he was developing fevers with a temperature 11.6 on 03/04/2019. The patient has blood culture sent a blood culture came back positive for enterococcus group D. The patient was on cefazolin. IV Zosyn was added by the primary care team. This morning, the patient is sedated with propofol is currently running at 50 mics. His, comfortable. He is producing urine output. Her net fluid balance is -642 mL for yesterday. His cardiac rhythm is paced. His white cell count is 19.4. He is obviously septic condition with a positive blood culture. UA the time of admission was negative. He has a Diaz catheter in place. Abdomen is soft. His umbilical hernia. Surgical wound site over the left biventricular pacemaker is dry clean and intact. No significant orotracheal secretions. Chest x-ray from today shows cardiomegaly and lower lobe consolidation as the patient is a left lower lobe consolidation of the right upper lobe! The echocardiogram at shown an ejection fraction of 20-25%. There is moderate concentric left adela tricular hypertrophy. There is severe global hypokinesis. No pericardial effusion. The peak gradient across the aortic valve was 35 mmHg. It is a normal functioning bioprosthetic valve. There is moderate mitral regurgitation. Mild pulmonary hypertension. on 03/07/2019 the patient remains sedated and intubated on mechanical ventilator. The patient is on propofol for sedation. The patient is also on a mechanical ventilator on assist control mode with a tidal volume of 000 and the rate of 18 with an FiO2 of 40% and PEEP of 5. The chest x-ray from today shows stable findings and there is left lower lobe consolidation/effusion. ET tube is in a good location. The left ear showed a pH of 7.44 with a pCO2 of 34 and pO2 of 131. Based on this, there is a component of respiratory alkalosis and I dropped a respiratory rate down to 14. The telephone was kept at 500 for now. I took this patient off the Lasix therapy yesterday as the patient's CVP was running low and the patient was also developing acute kidney injury. Today CVP is also low measuring as high as 4-5 millimeters of mercury. Based on that, the patient was started on oral Lasix set of IV Lasix for cardiology. He is p roducing adequate amount of urine output. Creatinine is also improving and is down to 2.1. The patient is afebrile. The patient was seen by infectious disease. Antibiotic adjustments were done and the patient was placed on a combination of Unasyn and gentamicin. No clear indication for endocarditis. The patient has 3 positive blood culture that was positive for E faecalis, in the patient was simplified back to Unasyn and gentamicin was discontinued as the patient was found to be having a Enterococcus faecalis resistant to gentamicin.. The patient is producing adequate amount of urine output. He is still on pressors and the present doses been weaned down to 0.07 micrograms per kilogram per minute of norepinephrine infusion. The patient will be started on enteral feeding for nutritional support. Cardiology is on the case. Cardiac rhythm remains paced. No significant electrolyte imbalance in the patient's white cell count is down to 10.5. 03/08/2019, the patient remains intubated on a mechanical ventilator. The patient remains hemodynamically unstable requiring pressors and the norepinephrine infusion is running at 0.08 mcg/kg per minute. He is also on Prinivil at 40 mics per KG. The patient a mechanical ventilator on assist control mode with a tidal volume of 500 and rate of 18 with an FiO2 of 40% and a PEEP of 5. Chest x-ray is unchanged compared to yesterday and there are some white pulmonary vessel congestion. The patient is producing 25 mL of urine output on an hourly basis. Net fluid balance is positive to 11 mL over the past 24 hours. He is currently on oral Lasix. He is also on norepinephrine infusion. He is on enteral feeding for nutritional support. He is receiving before for sedation. Note that all of the blood cultures came back positive for Enterococcus faecalis. The patient remains on IV Unasyn. Follow-up cultures were obtained to make sure there is no ongoing bacteremia. There is a high likely what that it there may be a component of infective endocarditis. The patient will need a LISSET to evaluate this further. His cardiac rhythm is paced. The fibrillator pocket is clean and intact at this point in time. As for his continued kidney injury, the patient's creatinine is improving and the creatinine is down to 1.72. The white cell count is also down to 10.5 and the patient is responding to IV Unasyn for now. Reevaluated today on 03/09/2019, patient remains on mechanical ventilation, he is still on norepinephrine at 0.05 mcg/kg/m, still on propofol at 50 mcg/kg/m. He is on mechanical ventilation, assist control rate of 18, FiO2 is 40%, PEEP of 5. Tidal volume is 500. Transesophageal echocardiogram is suspicious for vegetations involving the aortic bioprosthetic valve there was also evidence of thickened mitral valve leaflets with moderate mitral regurgitation. His LV function was noted to be impaired ejection fraction of 20%. ABG this morning showed a pO2 of 120 pCO2 of 42 pH of 7.42 11 lites are normal renal profile is abnormal with BUN of 42 creatinine of 1.75 WBC count is 12.3 hemoglobin is 10.2. Chest x-ray is suspicious for mild interstitial edema and small bilateral pleural effusions. There is also some retrocardiac atelectasis. Patient is sedated, on mechanical ventilation, I have no plans to wean the patient today since LISSET was scheduled to be done shortly after I evaluated the patient. Patient was reevaluated today on 03/10/2019, remains on mechanical ventilation, his ventilator settings are assist control rate of 14 FiO2 is 40% PEEP is 5 tidal volume is 500. Patient is on Cardizem drip as per cardiology 5 mg per hour, his also on metoprolol, and he is on norepinephrine at 0.05 mcg/kg/m. Propofol is 25 mcg/kg/m. Chest x-ray showed cardiomegaly and prominent pulmonary vasculature with minimal basilar atelectasis. ABG showed a pO2 of 117 pCO2 of 43 pH of 7.45. WBC count is 14.8 hemoglobin is 10.5. Electrolytes are relatively normal. Renal profile showed a BUN of 42 creatinine of 1.70. Patient remains sedated, however I plan to hold his sedation today, and hopefully assess mental status and decide whether we can proceed with any further weaning trials. Family is at bedside and they were updated on his condition and on the fact that he has endocarditis. Antibiotics were addressed by Dr. Nguyễn, patient is now on Unasyn. He also remains on Rocephin. Reevaluated today on 03/11/2019, remains in the ICU on mechanical ventilation. His ventilator settings are assist control rate of 14, tidal volume is 500 FiO2 of 35% PEEP is 5. Remains on propofol at 30 mcg/kg/m, he is off pressors. ABG this morning showed a pO2 of 103 pCO2 of 39 pH of 7.50. Electrolytes are normal however his BUN is 51 creatinine is 1.84. WBC count is 11.4 hemoglobin is 10.2. Patient remains on nutritional support via enteral feeding. Remains on antibiotics for his underlying endocarditis as per infectious disease. Yesterday the patient was given a sedation interruption, and a trial of weaning, however he was extremely agitated, restless, and could not go on to wean or extubated the patient. This would be reattempted again today. Reevaluated today in the ICU on 03/12/2019, patient remains on mechanical ventilation, his ventilator settings are tidal volume of 500 assist control rate of 14 FiO2 35% PEEP of 5. Patient remains on propofol, presently off norepinephrine, patient was given a weaning trial yesterday, however he became extremely tachycardic, and restless agitated. Today I plan to wean the patient slowly on Precedex to be started after stopping propofol. Patient will be awakened and will be given definitely a weaning trial today. Depending on how he does on pressure support and CPAP, may or may not proceed to full extubation. Chest x-ray is showing mild congestive changes. ABG this morning showed a pO2 of 77 pCO2 of 45 pH of 7.48 electrolytes showed elevated sodium of 148 BUN is 61 creatinine 1.78. Bicarb is 34 WBC count is 10.2 hemoglobin is 10.1. Patient remains on antibiotics, not requiring pressors at this point, has been intermittently on and off norepinephrine Reevaluated today on 03/13/2019, patient was extubated from mechanical ve ntilation yesterday, patient is presently on high flow nasal cannula, O2 saturation is in the mid 90s, tolerated the extubation well since yesterday. Chest x-ray continues to show evidence of mild congestive heart failure. However the patient has elevated sodium today, it is 153, and I have switched his IV fluid to D5W, will hold on the Lasix for now, and he will receive D5W at 50 mL per hour. Patient received Lasix earlier today by nephrology. Patient remains on antibiotics for his endocarditis. And he is hemodynamically stable at present. Reevaluated today on 03/14/2019, patient remains off mechanical ventilation, on high flow nasal cannula, O2 saturation is excellent. Chest x-ray showed mild interstitial edema. Patient continues to have intermittent episodes of confusion and disorientation. CT of the head is negative for septic emboli involving the brain. Sodium remains a bit elevated, and the process of correcting his sodium with D5W. Lasix is still on hold. BUN is 69 creatinine is 1.99 sodium today is 150. is at bedside, and she was updated on his condition, and explained to her that the patient may have metabolic encephalopathy. Related to his hypernatremia and sepsis with bacteremia. Patient was reevaluated today on 03/15/2019, seems to be doing fairly well, remains off mechanical ventilation,he is steadily improving, Denies any specific complaints,his mental status seems to be intermittently waxing and waning. But today he seems to be more appropriate.chest x-ray continues to show evidence of interstitial edema/CHF, his electrolytes are improving sodium is down to 146. BUN is 75 creatinine is 2.19. ABG last night showed a pO2 of 61 pCO2 48 pH of 7.43, hence his FiO2 was increased and he is presently on 6 L nasal cannula. Objective - Vital Signs Vital signs: Vital Signs Temp 98.2 F 03/15/19 08:00 Pulse 98 03/15/19 12:22 Resp 18 03/15/19 11:00 BP 127/94 03/15/19 11:00 Pulse Ox 95 03/15/19 11:00 Intake & Output 03/14/19 03/15/19 03/15/19 18:59 06:59 18:59 Intake Total 880 1118.333 470 Output Total 265 178 8310 Balance 55 573.333 -530 Weight 120.5 kg Intake: IV 780 660 270 Ampicillin-Sulbactam 3 gm 100 In Sodium Chloride 0.9% 100 ml @ 200 mls/hr IVPB Q6H DEANDRA Rx#:[id number] Dextrose 5% in Water 1, 650 550 100 000 ml @ 50 mls/hr IV . Q20H DEANDRA Rx#:[id number] KVO 130 110 70 Intake, IV Titration 100 458.333 Amount Amiodarone 300 mg In 458.333 Dextrose 5% in Water 250 ml @ 0.5 MG/MIN 25 mls/hr IV .Q10H DEANDRA Rx#: [id number] Ampicillin-Sulbactam 3 gm 50 In Sodium Chloride 0.9% 100 ml @ 200 mls/hr IVPB Q6H DEANDRA Rx#:[id number] cefTRIAXone 2 gm In 50 Sodium Chloride 0.9% 50 ml @ 100 mls/hr IVPB Q24HR DEANDRA Rx#:[id number] Oral 200 Output: Urine 910 104 5777 Other: Voiding Method Indwelling Catheter Indwelling Catheter Indwelling Catheter # Bowel Movements 1 1 ABP, PAP, CO, CI - Last Documented Arterial Blood Pressure 105/93 - Exam Physical Exam: Revealed a 73-year-old white male, on nasal cannula, in no distress Head: Atraumatic, normocephalic. HEENT:[Neck is supple.] [No neck masses.] [No thyromegaly.] [No JVD.] Moist mucous membranes Chest: Minimal Crackles at the bases noted bilaterally, symmetrical chest expansion.] Cardiac Exam: [Normal S1 and S2, no S3 gallop, 2/6 systolic murmur thought the precordium] Abdomen: [Soft, nontender, no megaly, no rebound, no guarding, normal bowel sounds.] Extremities: [No clubbing, no edema, no cyanosis.] Neurological Exam: Alert and oriented 3, intermittently confused, seems better today compared to the last few days per Psychiatric: Normal mood, blunt affect, less confused today compared to yesterday. Lymphatics: No lymphadenopathy. Skin: No rashes - Labs CBC & Chem 7: 03/15/19 04:17 03/15/19 04:21 Labs: Abnormal Lab Results - Last 24 Hours (Table) 03/14/19 03/14/19 03/15/19 Range/Units 16:59 21:15 00:45 WBC (3.8-10.6) k/uL RBC (4.30-5.90) m/uL Hgb (13.0-17.5) gm/dL Hct (39.0-53.0) % MCHC (31.0-37.0) g/dL Neutrophils # (1.3-7.7) k/uL ABG pCO2 (35-45) mmHg ABG pO2 (83-108) mmHg ABG HCO3 (21-25) mmol/L ABG Total CO2 (19-24) mmol/L ABG O2 Saturation (94-97) % Sodium (137-145) mmol/L Chloride (98-107) mmol/L BUN (9-20) mg/dL Creatinine (0.66-1.25) mg/dL Glucose (74-99) mg/dL POC Glucose (mg/dL) 154 H 139 H 139 H (75-99) mg/dL 03/15/19 03/15/19 03/15/19 Range/Units 01:00 04:17 04:21 WBC 15.6 H (3.8-10.6) k/uL RBC 3.81 L (4.30-5.90) m/uL Hgb 10.9 L (13.0-17.5) gm/dL Hct 36.5 L (39.0-53.0) % MCHC 29.9 L (31.0-37.0) g/dL Neutrophils # 13.0 H (1.3-7.7) k/uL ABG pCO2 48 H (35-45) mmHg ABG pO2 61 L (83-108) mmHg ABG HCO3 32 H (21-25) mmol/L ABG Total CO2 33 H (19-24) mmol/L ABG O2 Saturation 88.9 L (94-97) % Sodium 146 H (137-145) mmol/L Chloride 108 H (98-107) mmol/L BUN 75 H (9-20) mg/dL Creatinine 2.19 H (0.66-1.25) mg/dL Glucose 160 H (74-99) mg/dL POC Glucose (mg/dL) (75-99) mg/dL 03/15/19 03/15/19 03/15/19 Range/Units 06:43 07:48 11:34 WBC (3.8-10.6) k/uL RBC (4.30-5.90) m/uL Hgb (13.0-17.5) gm/dL Hct (39.0-53.0) % MCHC (31.0-37.0) g/dL Neutrophils # (1.3-7.7) k/uL ABG pCO2 (35-45) mmHg ABG pO2 (83-108) mmHg ABG HCO3 (21-25) mmol/L ABG Total CO2 (19-24) mmol/L ABG O2 Saturation (94-97) % Sodium (137-145) mmol/L Chloride (98-107) mmol/L BUN (9-20) mg/dL Creatinine (0.66-1.25) mg/dL Glucose (74-99) mg/dL POC Glucose (mg/dL) 149 H 151 H 120 H (75-99) mg/dL Microbiology - Last 24 Hours (Table) 03/09/19 09:44 Blood Culture - Final Blood No Growth after 144 hours 03/10/19 12:00 Blood Culture - Preliminary Blood No Growth after 96 hours Assessment and Plan Assessment: Impression: 1 acute hypoxic respiratory failure secondary to cardiogenic shock and septic shock. Patient was extubated successfully on 03/12/2019. 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 3 severe LV dysfunction and cardiomyopathy, ischemic in nature, ejection fraction of 20-25% post-insertion of AICD. 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 6 septic shock secondary to enterococcal infection 7 acute kidney injury secondary to sepsis, ATN, and possibly contrast nephropathy 8 history of underlying COPD, hypertension, hyperlipidemia, obesity, and generalized anxiety disorder. 9 hypernatremia secondary to free water depletion, and diuretics, hence we'll change the IV fluid to D5W, and hydrate the patient cautiously with D5W, and liberalize free water intake 10 acute metabolic encephalopathy secondary to electrolytes imbalance, hypernatremia, and sepsis as well as bacteremia. Recommendation: Continue oxygen titrate, keep O2 saturation above 90%. Continue nutritional support Continue antibiotics and/Unasyn and Rocephin Continue GI and DVT prophylaxis Continue to monitor the patient in the ICU, prognosis remains guarded, we will continue to follow. Time with Patient: Less than 30
--- NOTE | 2019-03-15 13:01 | PN ---
PROGRESS NOTE Patient is seen for followup for acute kidney injury. He is sitting up in bed. Patient denies any significant complaints. He is maintained on IV antibiotics, D5W at 50 mL an hour. Urine output has been about 40-60 mL an hours. The patient is maintained on IV Lasix once a day. PHYSICAL EXAMINATION: On examination today, blood pressure was 121/94, heart rate of 117 per minute, patient is afebrile. Examination of the heart S1, S2. Examination of the lungs, bilateral breath sounds are heard. Decreased breath sounds at the bases. Abdomen is soft, nontender. Examination of lower extremities shows edema 1+ bilaterally. LABS: Show sodium 146, potassium 3.8, chloride 108, BUN 70, creatinine 2.19. ASSESSMENT: 1. Acute kidney injury, acute tubular necrosis secondary to sepsis, hypotension, hypoperfusion. Renal function fairly stable, creatinine staying 1.9-2 mg/dL. The patient is nonoliguric. He has been diuresed. Lasix was decreased to once a day. 2. Hypernatremia maintained on D5W at 50 mL an hour. Serum sodium has improved. 3. Respiratory failure status post extubation. 4. Sepsis with Enterococcus bacteremia with endocarditis. 5. Volume overload maintained on IV Lasix which I will continue for now. PLAN: Continue to diurese patient. Repeat labs in a.m. Continue the D5W. Encourage increased oral intake. If the patient is able to take enough free water, we can DC the D5W. MMODL / IJN: [id number] /
[2019-03-15 17:29] LABS: Glucose,Whole Blood 146 mg/dL (75-99)
--- NOTE | 2019-03-15 20:13 | PN ---
PROGRESS NOTE Mr. Tiwari is in atrial fib, rate control is better since he got IV amiodarone. I will switch from IV to oral today. He is awake, but not very communicative, still confused. Vitals are stable. S1/S2 heard normally. Irregular rhythm noted. Short systolic murmur at the base is audible. Lungs reveal diminished air entry. Abdomen and lower extremity exam unchanged. 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 Prognosis remains guarded. MMODL / IJN: [id number] /
[2019-03-15] MEDS: CLOPIDOGREL 75 MG TAB PO SCH (20:29)
[2019-03-15 21:15] LABS: Glucose,Whole Blood 241 mg/dL (75-99)
[2019-03-16] MEDS: AMPICILLIN-SULBACTAM 3 GM in SODIUM CHLORIDE 0.9% 100 ML IVPB SCH ×4 (03:48→20:22)
[2019-03-16 06:08] LABS: Basophils # (A) 0.2 k/uL (0-0.2); Basophils % (A) 1 %; Eosinophils # (A) 0.2 k/uL (0-0.7); Eosinophils % (A) 1 %; HGB 10.9 gm/dL (13.0-17.5); Hypochromasia Marked; Lymphocytes # (A) 1.2 k/uL (1.0-4.8); Lymphocytes % (A) 7 %; MCH 28.5 pg (25.0-35.0); MCHC 29.4 g/dL (31.0-37.0); MCV 97.1 fL (80.0-100.0); Mean Platelet Volume 9.4; Monocytes # (A) 0.7 k/uL (0-1.0); Monocytes % (A) 4 %; Neutrophils # (A) 14.4 k/uL (1.3-7.7); Neutrophils % (A) 86 %; Platelet Count 335 k/uL (150-450); RBC 3.81 m/uL (4.30-5.90); RDW 14.7 % (11.5-15.5); WBC 16.8 k/uL (3.8-10.6)
[2019-03-16 06:16] LABS: Calcium 8.8 mg/dL (8.4-10.2); Potassium 3.5 mmol/L (3.5-5.1)
[2019-03-16 06:56] LABS: Glucose,Whole Blood 141 mg/dL (75-99)
[2019-03-16] MEDS: INSULIN ASPART (NovoLOG) 100 UNIT/ML VIAL SQ SCH ×4 (07:30→20:47)
--- NOTE | 2019-03-16 07:36 | P.PN ---
Subjective This is a pleasant 73 years old male with past medical history of coronary artery disease patient , , heart failure, asthma, GERD, hyperlipidemia, h ypertension, osteoarthritis, valvular heart disease. Patient was admitted with non-STEMI, he underwent cardiac cath on 03/03/2019, showing patent stents and coronaries. Also patient underwent elective EP study yesterday and status post AICD placement, patient is currently in the ICU intubated and could not provide information, he was extubated for short time before he needed reintubation. Information was taken from the staff at the medical records as patient cannot contribute to history . He has low ejection fraction 20-25%. Patient is obese and he needed low dose of pressors. He has distended abdomen, possibly from fat. No focal neurological findings. Also he has positive blood culture with enterococcus and trending up leukocytes. Infectious disease was consulted, patient is currently on Zosyn. Also patient creatinine is trending up however patient is making reasonable urine output, he was on Lasix drip but this was stopped. 03/07/2019 Patient in the ICU intubated and sedated, his vitals with blood pressure 130/54, and he is saturating 98%. His WBC is back to normal at 10.5. Creatinine is at 2.14 with slight improvement down from 2.6 yesterday. He has several blood culture positive for enterococcus. Chest x-ray showing no significant change. Patient has been evaluated by forensics analyst and song and dance performer, song and dance performer considering LISSET if blood culture remains positive. Patient also was started on gentamicin and Unasyn as per infectious disease recommendation 03/08/2019 Patient remains in the ICU, he still intubated and sedated. Blood pressure 108/52, saturating 96%, heart rate is 70. K, hemoglobin is stable at 10.4, platelets are within normal limits. Creatinine is improving gradually down to 1.7, electrolytes included sodium and potassium are within normal limits, sugar is running between 129-155. Magnesium is elevated at 2.5,. He has several bloo d culture that's positive for group D enterococcus faecalis, cardiology R following the case and the plan is for transesophageal echocardiogram tomorrow to rule out endocarditis 03/09/2019 Patient is ICU intubated and sedated, patient is planned to go for transesophageal echocardiogram today to rule out endocarditis in view of his persistent bacteremia/septicemia. Patient remains currently on Unasyn. Patient is slightly bradycardic at 57-60, he had low-grade temperature yesterday of 100.2, blood pressure 102/58, lap showing mild leukocytosis of 12.3 K, hemoglobin is stable. Creatinine is improving to 1.75. ABGs showed pH of 7.4, pCO2 42 which are within normal limits, pO2 is 120. Repeat blood cultures are pending, repeat chest x-ray from today showing fluid overload with interstitial edema with possible atelectasis. 03/10/2019 Patient remains in the ICU intubated and sedated, yesterday he had a LISSET which showing low ejection fraction around 20% with agitation note dictated on the aortic valve. Also patient noted to bleed easily given from subcutaneous injection site, currently is on subcu heparin to 8 which is lower to every 12 this morning, he is also on aspirin and Plavix, platelets are normal. We don't to check PT and INR and PTT today. Last night patient was started on Cardizem drip for better control of his blood pressure and heart rate and blood pressure. Patient is followed closely by cardiology and rectal care team. Prognosis is extremely poor 03/11/2019 Patient remains in the ICU, he is intubated and sedated. Patient failed weaning trials today by the pulmonary team. Patient is still tachycardic and he was started on Cardizem drip today, blood pressure 111/66. mild leukocytosis of 11.4 k, hemoglobin 10.2, sodium is 148, creatinine 1.8, compared to 1.7 yesterday. repeat blood cultures still shown enterococcus. the patient remains on unasyn and ceftriaxone currently with infectious disease followed the case closely. patient is following closely by cardiology and pulmonary/critical care team. prognosis remains guarded 03/12/2019 Patient remains in the ICU in critical condition, he is intubated and sedated however he is undergoing wound and a trial which has been failed previously. Blood pressure on the low side 66/38, wbc of 10.2 k, hemoglobin 10.1. his creatinine is stable at 1.7, high sodium on 148. Sugar is controlled at the r bo of 120-143. Repeat blood culture from 03/10 and 03/09 still pending which shows no growth so far. Repeat chest x-ray showed stable findings. His been followed closely by several consultants including cardiology, critical care and infectious disease recommended to continue with Unasyn and ceftriaxone for 6 weeks. 03/16/2019 Patient remains in the ICU. Is a status post extubation. Currently he is on oxygen nasal cannula 6 L/m with his oxygen saturation at 99%. Rest of vitals show a respiratory rate of 22-25, with tachycardia 108 07/11/2013, rest of vitals stable and patient is afebrile for the last few days. Labs showing resistant leukocytosis at 16.8 K, creatinine stable at 2.0. He has no chest pain, no headache. No change in bowel habits. He remains on Unasyn and ceftri axone as per infectious disease recommendation, his Lasix was lowered to 40 mg IV daily, and he is off the amiodarone drip and currently is on amiodarone pills at 200 mg twice daily. Patient is able to eat and drink so D5W was stopped. Pain is controlled. Review of systems CONSTITUTIONAL: No fever, no malaise, no fatigue. HEENT: No recent visual problems or hearing problems. Denied any sore throat. CARDIOVASCULAR: No orthopnea, PND, no palpitations, no syncope. PULMONARY:no cough, no hemoptysis. GASTROINTESTINAL: No diarrhea, no nausea, no vomiting, no abdominal pain. Nor moactive bowel sounds. NEUROLOGICAL: No headaches, no weakness, no numbness. HEMATOLOGICAL: Denies any bleeding or petechiae. GENITOURINARY: Denies any burning micturition, frequency, or urgency. MUSCULOSKELETAL/RHEUMATOLOGICAL: Denies any joint pain, swelling, or any muscle pain. ENDOCRINE: Denies any polyuria or polydipsia. Active Medications Generic Name Dose Route Start Last Admin Trade Name Freq PRN Reason Stop Dose Admin Acetaminophen 650 mg 03/05/19 18:53 03/14/19 12:24 Tylenol Tab PO 650 mg Q6HR PRN Administration Mild Pain Albuterol Sulfate 2.5 mg 03/01/19 20:10 03/06/19 15:31 Ventolin Nebulized INHALATION 2.5 mg Q4H PRN Administration sob Allopurinol 100 mg 03/01/19 20:10 Zyloprim PO HS PRN gout Amiodarone HCl 200 mg 03/15/19 09:00 03/15/19 20:29 Cordarone PO 200 mg BID DEANDRA Administration Aspirin 81 mg 03/09/19 09:00 03/15/19 09:02 Aspirin PO 81 mg DAILY DEANDRA Administration Atorvastatin Calcium 40 mg 03/09/19 09:00 03/15/19 09:02 Lipitor PO 40 mg DAILY DEANDRA Administration Bisacodyl 10 mg 03/01/19 20:12 Dulcolax PO DAILY PRN Constipation Clopidogrel Bisulfate 75 mg 03/01/19 21:00 03/15/19 20:29 Plavix PO 75 mg HS DEANDRA Administration Furosemide 40 mg 03/14/19 09:00 03/15/19 09:02 Lasix IV 40 mg DAILY DEANDRA Administration Heparin Sodium (Porcine) 5,000 unit 03/10/19 21:00 03/15/19 20:25 Heparin SQ 5,000 unit Q12HR DEANDRA Administration Hydromorphone HCl 1 mg 03/08/19 15:04 03/15/19 10:05 Dilaudid IVP 1 mg Q3H PRN Administration Pain Ampicillin Sodium/Sulbactam 100 mls @ 200 mls/hr 03/08/19 14:00 03/16/19 03:48 Sodium 3 gm/ Sodium Chloride IVPB 200 mls/hr Q6H DEANDRA Administration Ceftriaxone Sodium 2 gm/ 50 mls @ 100 mls/hr 03/09/19 17:00 03/15/19 09:02 Sodium Chloride IVPB 100 mls/hr Q24HR DEANDRA Administration Insulin Aspart 0 unit 03/14/19 07:30 03/16/19 07:30 Novolog SQ 1 unit ACHS DEANDRA Administration Protocol Ipratropium Matthews 0.5 mg 03/02/19 08:00 03/15/19 19:41 Atrovent Nebulized INHALATION 0.5 mg RT-QID DEANDRA Administration Metoprolol Tartrate 50 mg 03/12/19 17:30 03/15/19 21:26 Lopressor PO 50 mg TID DEANDRA Administration Miscellaneous Information 1 each 03/11/19 14:10 Potassium Per Protocol MISCELLANE DAILY PRN Per Protocol Protocol Nitroglycerin 0.4 mg 03/01/19 16:04 Nitrostat SUBLINGUAL Q5M PRN Chest Pain Pantoprazole Sodium 40 mg 03/09/19 09:00 03/15/19 09:02 Protonix IVP 40 mg DAILY DEANDRA Administration Sodium Chloride 10 ml 03/05/19 21:00 03/15/19 21:18 Saline Flush IV 10 ml Q12HR DEANDRA Administration Objective - Vital Signs Vital signs: Vital Signs Temp 98.1 F 03/16/19 04:00 Pulse 108 H 03/16/19 07:00 Resp 25 H 03/16/19 07:00 BP 134/87 03/16/19 07:00 Pulse Ox 99 03/16/19 07:00 Intake & Output 03/15/19 03/16/19 03/16/19 18:59 06:59 18:59 Intake Total 1160 240 Output Total 1950 810 Balance -790 -570 Weight 122.2 kg Intake: IV 510 240 Ampicillin-Sulbactam 3 gm 200 In Sodium Chloride 0.9% 100 ml @ 200 mls/hr IVPB Q6H DEANDRA Rx#:[id number] Dextrose 5% in Water 1, 100 000 ml @ 50 mls/hr IV . Q20H DEANDRA Rx#:[id number] KVO 210 240 Oral 650 Output: Urine 1950 810 Other: Voiding Method Indwelling Catheter Indwelling Catheter ABP, PAP, CO, CI - Last Documented Arterial Blood Pressure 105/93 - Exam -GENERAL: The patient is intubated and sedated HEENT: Pupils are round and equally reacting to light. EOMI. No scleral icterus. No conjunctival pallor. Normocephalic, atraumatic. No pharyngeal erythema. No thyromegaly. CARDIOVASCULAR: S1 and S2 present. No murmurs, rubs, or gallops. PULMONARY: Chest is clear to auscultation, no wheezing or crackles. ABDOMEN: Soft, nontender, nondistended, normoactive bowel sounds. No palpable organomegaly. MUSCULOSKELETAL: No joint swelling or deformity. EXTREMITIES: No cyanosis, clubbing, or pedal edema. NEUROLOGICAL: Gross neurological examination did not reveal any focal deficits. SKIN: No rashes. no petechiae. - Labs CBC & Chem 7: 03/16/19 05:26 03/16/19 05:20 Labs: Abnormal Lab Results - Last 24 Hours (Table) 03/15/19 03/15/19 03/15/19 Range/Units 07:48 11:34 16:52 WBC (3.8-10.6) k/uL RBC (4.30-5.90) m/uL Hgb (13.0-17.5) gm/dL Hct (39.0-53.0) % MCHC (31.0-37.0) g/dL Neutrophils # (1.3-7.7) k/uL BUN (9-20) mg/dL Creatinine (0.66-1.25) mg/dL Glucose (74-99) mg/dL POC Glucose (mg/dL) 151 H 120 H 146 H (75-99) mg/dL 03/15/19 03/16/19 03/16/19 Range/Units 21:03 05:20 05:26 WBC 16.8 H (3.8-10.6) k/uL RBC 3.81 L (4.30-5.90) m/uL Hgb 10.9 L (13.0-17.5) gm/dL Hct 37.0 L (39.0-53.0) % MCHC 29.4 L (31.0-37.0) g/dL Neutrophils # 14.4 H (1.3-7.7) k/uL BUN 76 H (9-20) mg/dL Creatinine 2.08 H (0.66-1.25) mg/dL Glucose 146 H (74-99) mg/dL POC Glucose (mg/dL) 241 H (75-99) mg/dL 03/16/19 Range/Units 06:54 WBC (3.8-10.6) k/uL RBC (4.30-5.90) m/uL Hgb (13.0-17.5) gm/dL Hct (39.0-53.0) % MCHC (31.0-37.0) g/dL Neutrophils # (1.3-7.7) k/uL BUN (9-20) mg/dL Creatinine (0.66-1.25) mg/dL Glucose (74-99) mg/dL POC Glucose (mg/dL) 141 H (75-99) mg/dL Microbiology - Last 24 Hours (Table) 03/10/19 12:00 Blood Culture - Preliminary Blood No Growth after 120 hours 03/09/19 09:44 Blood Culture - Final Blood No Growth after 144 hours Assessment and Plan Assessment: Cardiogenic and septic shock . Improved Acute on chronic systolic congestive heart failure with ejection fraction 20- 25%, on the top of history of severe ischemic cardiomyopathy. 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 Continue with antibiotics as per infectious disease recommendation, for 6 more weeks and currently he is on Unasyn and ceftriaxone, continue with oxygen and follow-up with pulmonary/critical team. Patient is on Lasix. . Follow-up cardiology recommendations. Follow-up WBC and creatinine.Labs and medication were reviewed. Continue same treatment. Continue with symptomatic treatment. Resume home medication. Monitor lytes and vitals. DVT and GI prophylaxis. Further recommendations of the clinical course of the patient DVT prophylaxis: Subcutaneous heparin GI Prophylaxis: Protonix Prognosis is guarded
[2019-03-16] MEDS: IPRATROPIUM 0.5 MG/2.5 ML NEBU INHALATION SCH ×4 (08:09→19:24)
[2019-03-16] MEDS: POTASSIUM CHLORIDE 20 MEQ in WATER FOR INJECTION 1 100ML.BAG IVPB SCH ×2 (08:58→11:46)
[2019-03-16] MEDS: AMIODARONE 200 MG TAB PO SCH ×3 (08:58→21:19)
[2019-03-16] MEDS: ASPIRIN 81 MG PO SCH (08:58)
[2019-03-16] MEDS: METOPROLOL TARTRATE 50 MG TAB PO SCH (08:58)
[2019-03-16] MEDS: ATORVASTATIN 40 MG TAB PO SCH (08:58)
[2019-03-16] MEDS: FUROSEMIDE 10 MG/ML 4 ML VIAL IV SCH ×2 (08:59→20:47)
[2019-03-16] MEDS: HEPARIN SODIUM,PORCINE 5,000 UNIT/ML 1 ML VIAL SQ SCH ×2 (08:59→20:47)
[2019-03-16] MEDS: PANTOPRAZOLE 40 MG/10 ML VIAL IVP SCH (08:59)
--- NOTE | 2019-03-16 11:14 | PN ---
PROGRESS NOTE PULMONARY/CRITICAL CARE PROGRESS NOTE DATE OF SERVICE: March 16, 2019 CRITICAL CARE TIME: 32 minutes. A 73-year-old male who I see in the office for COPD. The patient was admitted to the hospital back on the 01 of March. Initially, he apparently came in with atrial fibrillation with rapid ventricular response. He went to the wheelabrator operator on the 03 of March and had a procedure done to his right coronary artery. On the , a pacemaker was placed. Somewhere between those 2 dates, the patient had positive blood cultures for Enterococcus faecalis. He was intubated on with the pacemaker and extubated successfully on March 12. The patient has a history of acute hypoxemic respiratory failure secondary to cardiogenic shock and septic shock. As I mentioned, he was successfully extubated on March 12. In addition, he has acute endocarditis secondary to Enterococcus infection with enterococcal bacteremia, severe LV dysfunction and cardiomyopathy with an ejection fraction of 20% to 25%, status post AICD placement, CAD with previous bypass grafting, history of aortic valve replacement with bioprosthetic valve, septic shock, acute kidney injury, possibly ATN versus contrast nephropathy, COPD, hypertension, hyperlipidemia, obesity, and generalized anxiety. In addition, the patient had significant metabolic encephalopathy, especially post extubation and that has improved. Currently, the patient is on 6 L high-flow oxygen and 0.9 at 20 mL an hour. He is sitting up in bed. Still a little foggy. He does respond appropriately and does recognize me. Again, I see him in the office for his COPD. PHYSICAL EXAMINATION: VITAL SIGNS: Current vital signs are reviewed. Temperature 98.2, heart rate 100, respiratory rate 13, blood pressure 134/87, mean 102 and 6 L saturations are 98%. GENERAL: H appears in no acute distress. HEENT: Examination is grossly unremarkable. Mucous membranes are moist. Nasal O2 noted. No respiratory distress. Mild conversational dyspnea. NECK: Supple. Full range of motion. No adenopathy or thyromegaly. Neck veins are flat. CARDIOVASCULAR: Examination reveals distant heart sounds. A murmur is heard. S1, S2 normal. Heart rate is about 100 beats per minute. S1, S2 normal, otherwise. LUNGS: The lungs reveal a few scattered coarse rhonchi. No wheezes or crackles. Breath sounds are diminished. ABDOMEN: Is obese. Bowel sounds are heard. EXTREMITIES: Are intact. Mild edema. SKIN: Without rash. NEUROLOGIC: Examination is difficult to assess but he seems to be appropriate. According to his nurse, he has improved dramatically over the last couple of days. Microbiologic study show multiple blood cultures positive for Enterococcus faecalis. They start being positive somewhere around March 04 and continue through March 08. LAB DATA: Lab data is reviewed. White count 16.8, hemoglobin 10.9, hematocrit 37.0, platelet count 335,000. Sodium, potassium, chloride and CO2 all normal. Anion gap is 12. BUN and creatinine were 76 and 2.08. MEDICATIONS: Medications are reviewed. Chest x-ray shows some mild fluid overload. ASSESSMENT: 1. Acute hypoxemic respiratory failure secondary to cardiogenic shock and septic shock, status post successful extubation on March 12 with initial intubation on March 05. 2. Acute enterococcal endocarditis with enterococcal bacteremia. 3. Severe left ventricular dysfunction and cardiomyopathy, with an ejection fraction of 20% to 25%. 4. Status post AICD placement on March 05. 5. Coronary artery disease with previous bypass grafting. 6. History of aortic valve replacement with bioprosthetic valve. 7. 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 8. History of septic shock. 9. History of acute kidney injury secondary to acute tubular necrosis versus contrast nephropathy. 10.History of chronic obstructive pulmonary disease. 11.History of hypertension. 12.History of hyperlipidemia. 13.Obesity. 14.Generalized anxiety disorder. 15.History of hypernatremia, much improved. 16.Metabolic encephalopathy, much improved. PLAN: The patient will continue on oxygen therapy. We will continue to monitor his chest x- ray, electrolytes, laboratory data, etc. Continue with antibiotics in the form of Unasyn and Rocephin. Being followed by Infectious Disease. Continue with GI and DVT prophylaxis. Overall prognosis remains very guarded. CRITICAL CARE TIME: 32 minutes. MMODL / IJN: [id number] /
[2019-03-16 11:54] LABS: Glucose,Whole Blood 145 mg/dL (75-99)
--- NOTE | 2019-03-16 12:37 | PN ---
PROGRESS NOTE Patient is seen for followup for acute kidney injury, mainly ATN, nonoliguric. Etiology was hypotension, hypoperfusion and sepsis. Renal function has been fairly stable. Patient was being diuresed. Lasix was decreased to 40 mg IV daily from q.12 hours. However, it appears that he is more volume overloaded. The patient's mentation has improved. PHYSICAL EXAMINATION: This morning blood pressure is 124/94, heart rate 107 per minute, he is afebrile. Examination of the heart S1, S2. Examination of the lungs, bilateral breath sounds are heard. Abdomen is soft, non-tender. Examination of lower extremities shows edema 1+ bilaterally. MARINE RESOURCE ECONOMIST exam shows patient moving all 4 extremities. LABS: Show sodium 145, potassium 3.5, chloride 107, BUN 76, creatinine 2.08, hemoglobin 10.9 g/dL. ASSESSMENT: 1. Acute kidney injury, ATN from hypotension hypo perfusion and sepsis, currently nonoliguric and stable. 2. Atrial fibrillation with RVR currently controlled rate, maintained on amiodarone and Lopressor. 3. Hypoxic respiratory failure status post extubation. 4. Sepsis with endocarditis and bacteremia with Enterococcus faecalis with repeat cultures currently negative. 5. Volume overload. I will increase the Lasix to q.12 hours. PLAN: Increase Lasix to 40 mg q.12 hours. Continue to avoid nephrotoxic agents. Repeat labs in a.m. Repeat chest x-ray in a.m. BETSY / JONATHAN: [id number] /
[2019-03-16] MEDS ORDERED: POTASSIUM CHLORIDE 20 MEQ in WATER FOR INJECTION 1 100ML.BAG IVPB STA (15:57)
[2019-03-16] MEDS: METOPROLOL TARTRATE 25 MG TAB PO SCH ×2 (15:58→21:19)
[2019-03-16 16:34] LABS: Glucose,Whole Blood 138 mg/dL (75-99)
[2019-03-16] MEDS: CLOPIDOGREL 75 MG TAB PO SCH (20:47)
[2019-03-16 20:48] LABS: Glucose,Whole Blood 146 mg/dL (75-99)
--- NOTE | 2019-03-16 20:49 | PN ---
PROGRESS NOTE Mr. Tiwari is in atrial fibrillation. Rate control is still not very optimal. He is on amiodarone, which I am increasing to 200 mg t.i.d., and metoprolol will be 75 mg t.i.d. Hemodynamically stable. Urine output is decent. Bacteremia has improved. S1, S2 heard normally. Regular rate and rhythm noted. Systolic murmur noted. Lungs reveal improved air entry. Abdomen and lower extremity exam is unchanged. MMODL / IJN: [id number] /
--- NOTE | 2019-03-16 23:16 | P.PN ---
Subjective Progress Note Date: 03/16/19 This is a 73-year-old male with known history of ischemic cardiomyopathy along with known history of coronary artery disease and previous aortic valve replacement, AVR, and previous coronary artery bypass surgery. He presented on March 01 because of chest pain and found to have non-STEMI. He underwent cardiac catheterization with Dr. Juarez on 03/03 and the patient was found to have patent stent to the distal left mainstem to proximal circumflex, patent BELTRAN to LAD, chronic totally occluded RCA. Recommendations were mainly to maximize medical management. Patient was apparently having runs of V. tach and a consult was added for Dr. Ho. Patient subsequently underwent a biventricular ICD implantation on March 05. Patient was intubated prior to the procedure as apparently he is unable to lay flat for this. He received 700 mL of fluid during procedure. He was extubated last evening for only 3 minutes and was re- intubated. He was given Lasix 40 mg IV push followed by Lasix drip at 10 mg per hour. The Lasix to was discontinued this morning. Patient remains intubated, on sedation and on levo fed. His chest x-ray this morning reveals a right upper lobe pneumonia and probable heart failure. Patient has been running fevers up to 101.6 on evening of 925. White count 20.6, renal function is worsening with a BUN 45 and creatinine 2.6. Urinalysis was clear with nitrate and l eukoesterase negative. Urine output has been on the lower side running about 50 mL per hour or less. Blood culture from 03/04 is group D enterococcus and thus this consult was requested. 03/09/2019 the patient had evidence of isolated enterococcal bacteremia. The case was discussed with cardiology and a LISSET has been performed today which is verified evidence of a vegetation on the bioprosthetic aortic valve. There is no evidence of any ring abscess or of extensive valvular disease. The patient has shown some improvement in that his fever is improved and his leukocytosis is improving. 03/10/2019 patient remains intubated sedated and mechanically ventilated. His oxygen requirements have decreased in with increased dose of beta russell treatment started as some further improvement of his rate and dysrhythmia. He has been seen by cardiovascular surgeon. 03/11/2019 patient had weaning trial not successful to be retried tomorrow. Off of vasopressor therapy and stable. 03/12/2019 patient has had improvement of his status. He is less sedated. He is on CPAP and doing well likely be extubated when he is a bit more awake. 03/13/2019 the patient is extubated sitting upright feeling considerably better able to eat some nutrition. Not having much chest pain shortness of breath is improved. 03/15/2019 Patient has had some further improvement. He is less short of breath. He is without significant discomforts. Able to eat without difficulties. 03/16/2019 reveals the patient has some further improvement. Is more awake and interactive Objective - Vital Signs Vital signs: Vital Signs Temp 97.5 F L 03/16/19 16:00 Pulse 101 H 03/16/19 22:00 Resp 24 03/16/19 22:00 BP 121/85 03/16/19 22:00 Pulse Ox 96 03/16/19 22:00 Intake & Output 03/16/19 03/16/19 03/17/19 06:59 18:59 06:59 Intake Total 240 710 360 Output Total 810 808 350 Balance -570 -98 10 Weight 122.2 kg 122.2 kg Intake: IV 240 460 160 Ampicillin-Sulbactam 3 gm 200 100 In Sodium Chloride 0.9% 100 ml @ 200 mls/hr IVPB Q6H DEANDRA Rx#:[id number] KVO 240 260 60 Intake, IV Titration 250 Amount Potassium Chloride 20 meq 200 In Water For Injection 1 100ml.bag @ 50 mls/hr IVPB Q2H DEANDRA Rx#: [id number] cefTRIAXone 2 gm In 50 Sodium Chloride 0.9% 50 ml @ 100 mls/hr IVPB Q24HR DEANDRA Rx#:[id number] Oral 200 Output: Urine 810 808 350 Other: Voiding Method Indwelling Catheter Indwelling Catheter Indwelling Catheter # Bowel Movements 1 ABP, PAP, CO, CI - Last Documented Arterial Blood Pressure 105/93 - Exam Gen: This is a 73-year-old male. He has tolerated extubation well. Not having much shortness of breath. On the exam he has no tenderness over the pacemaker and does not recall it even being there. HEENT: Head is atraumatic, normocephalic. Pupils equal, round. Sclerae is anicteric. Conjunctiva pink. Oral mucous membranes are moist. Appears patient is edentulous. ET and gastric tube are in place orally. NECK: Supple. No JVD. No lymphadenopathy. No thyromegaly. LUNGS: Symmetrical air entry with few expiratory wheezes basilar crackles or bronchial sounds HEART: Regular rate and rhythm. No murmur. There is a dressing over the AICD, left upper chest wall, no drainage. No significant edema around the area. ABDOMEN: Soft. Bowel sounds are present. No masses. No tenderness. No redness under her abdominal fold. Diaz catheter draining clear dmitry urine. EXTREMITIES: Trace bilateral pedal edema. No wounds, no cellulitis noted. Dorsalis pedis 1+ bilaterally. NEUROLOGICAL: Patient is no longer sedated and more interactive. - Labs CBC & Chem 7: 03/16/19 05:26 03/16/19 20:10 Labs: Abnormal Lab Results - Last 24 Hours (Table) 03/16/19 03/16/19 03/16/19 Range/Units 05:20 05:26 06:54 WBC 16.8 H (3.8-10.6) k/uL RBC 3.81 L (4.30-5.90) m/uL Hgb 10.9 L (13.0-17.5) gm/dL Hct 37.0 L (39.0-53.0) % MCHC 29.4 L (31.0-37.0) g/dL Neutrophils # 14.4 H (1.3-7.7) k/uL BUN 76 H (9-20) mg/dL Creatinine 2.08 H (0.66-1.25) mg/dL Glucose 146 H (74-99) mg/dL POC Glucose (mg/dL) 141 H (75-99) mg/dL 03/16/19 03/16/19 03/16/19 Range/Units 11:52 16:32 20:34 WBC (3.8-10.6) k/uL RBC (4.30-5.90) m/uL Hgb (13.0-17.5) gm/dL Hct (39.0-53.0) % MCHC (31.0-37.0) g/dL Neutrophils # (1.3-7.7) k/uL BUN (9-20) mg/dL Creatinine (0.66-1.25) mg/dL Glucose (74-99) mg/dL POC Glucose (mg/dL) 145 H 138 H 146 H (75-99) mg/dL Microbiology - Last 24 Hours (Table) 03/10/19 12:00 Blood Culture - Final Blood No Growth after 144 hours Laboratory Results WBC 16.8 k/uL (3.8-10.6) H 03/16/19 05:26 RBC 3.81 m/uL (4.30-5.90) L 03/16/19 05:26 Hgb 10.9 gm/dL (13.0-17.5) L 03/16/19 05:26 Hct 37.0 % (39.0-53.0) L 03/16/19 05:26 MCV 97.1 fL (80.0-100.0) 03/16/19 05:26 MCH 28.5 pg (25.0-35.0) 03/16/19 05:26 MCHC 29.4 g/dL (31.0-37.0) L 03/16/19 05:26 RDW 14.7 % (11.5-15.5) 03/16/19 05:26 Plt Count 335 k/uL (150-450) 03/16/19 05:26 Neutrophils % 86 % 03/16/19 05:26 Lymphocytes % 7 % 03/16/19 05:26 Monocytes % 4 % 03/16/19 05:26 Eosinophils % 1 % 03/16/19 05:26 Basophils % 1 % 03/16/19 05:26 Neutrophils # 14.4 k/uL (1.3-7.7) H 03/16/19 05:26 Lymphocytes # 1.2 k/uL (1.0-4.8) 03/16/19 05:26 Monocytes # 0.7 k/uL (0-1.0) 03/16/19 05:26 Eosinophils # 0.2 k/uL (0-0.7) 03/16/19 05:26 Basophils # 0.2 k/uL (0-0.2) 03/16/19 05:26 Hypochromasia Marked 03/16/19 05:26 Anisocytosis Slight 03/01/19 15:07 PT 11.1 sec (9.0-12.0) 03/10/19 10:35 INR 1.0 (<1.2) 03/10/19 10:35 APTT 53.7 sec (22.0-30.0) H 03/02/19 21:57 Sample Site rbach 03/15/19 01:00 ABG pH 7.43 (7.35-7.45) 03/15/19 01:00 ABG pCO2 48 mmHg (35-45) H 03/15/19 01:00 ABG pO2 61 mmHg (83-108) L 03/15/19 01:00 ABG HCO3 32 mmol/L (21-25) H 03/15/19 01:00 ABG Total CO2 33 mmol/L (19-24) H 03/15/19 01:00 ABG O2 Saturation 88.9 % (94-97) L 03/15/19 01:00 ABG Base Excess 7.3 mmol/L 03/15/19 01:00 Manuel Test Yes 03/15/19 01:00 FiO2 36 % 03/15/19 01:00 Sodium 145 mmol/L (137-145) 03/16/19 05:20 Potassium 4.5 mmol/L (3.5-5.1) 03/16/19 20:10 Chloride 107 mmol/L (98-107) 03/16/19 05:20 Carbon Dioxide 26 mmol/L (22-30) 03/16/19 05:20 Anion Gap 12 mmol/L 03/16/19 05:20 BUN 76 mg/dL (9-20) H 03/16/19 05:20 Creatinine 2.08 mg/dL (0.66-1.25) H 03/16/19 05:20 Est GFR (CKD-EPI)AfAm 36 (>60 ml/min/1.73 sqM) 03/16/19 05:20 Est GFR (CKD-EPI)NonAf 31 (>60 ml/min/1.73 sqM) 03/16/19 05:20 Glucose 146 mg/dL (74-99) H 03/16/19 05:20 POC Glucose (mg/dL) 146 mg/dL (75-99) H 03/16/19 20:34 POC Glu [employer]ocket [employer] Component Mechanic ID Teddy Jarrell 03/16/19 20:34 Plasma Lactic Acid [place] 1.2 mmol/L (0.7-2.0) 03/06/19 10:10 Calcium 8.8 mg/dL (8.4-10.2) 03/16/19 05:20 Phosphorus 3.8 mg/dL (2.5-4.5) 03/09/19 04:30 Magnesium 2.7 mg/dL (1.6-2.3) H 03/14/19 05:35 Total Bilirubin 0.9 mg/dL (0.2-1.3) 03/01/19 15:07 AST 116 U/L (17-59) H 03/13/19 05:00 ALT 103 U/L (21-72) H 03/13/19 05:00 Alkaline Phosphatase 166 U/L (38-126) H 03/13/19 05:00 Troponin I 1.080 ng/mL (0.000-0.034) H* 03/02/19 04:09 NT-Pro-B Natriuret Pep 89664 pg/mL 03/01/19 15:07 Total Protein 6.8 g/dL (6.3-8.2) 03/01/19 15:07 Albumin 3.4 g/dL (3.5-5.0) L 03/01/19 15:07 Triglycerides 105 mg/dL (<150) 03/02/19 04:09 Cholesterol 188 mg/dL (<200) 03/02/19 04:09 LDL Cholesterol, Calc 148 mg/dL (0-99) H 03/02/19 04:09 HDL Cholesterol 19 mg/dL (40-60) L 03/02/19 04:09 TSH 3.570 mIU/L (0.465-4.680) 03/04/19 02:17 Urine Color Yellow 03/04/19 23:09 Urine Appearance Clear (Clear) 03/04/19 23:09 Urine pH 5.0 (5.0-8.0) 03/04/19 23:09 Ur Specific [place] 1.013 (1.001-1.035) 03/04/19 23:09 Urine Protein Trace (Negative) H 03/04/19 23:09 Urine Glucose (UA) Negative (Negative) 03/04/19 23:09 Urine Ketones Negative (Negative) 03/04/19 23:09 Urine Blood Negative (Negative) 03/04/19 23:09 Urine Nitrite Negative (Negative) 03/04/19 23:09 Urine Bilirubin Negative (Negative) 03/04/19 23:09 Urine Urobilinogen <2.0 mg/dL (<2.0) 03/04/19 23:09 Ur Leukocyte Esterase Negative (Negative) 03/04/19 23:09 Microbiology 03/10/19 12:00 Blood Blood Culture - Final No Growth after 144 hours 03/09/19 09:44 Blood Blood Culture - Final No Growth after 144 hours 03/08/19 08:46 Blood Blood Culture Gram Stain - Final 03/08/19 08:46 Blood Blood Culture - Final Enterococcus faecalis 03/08/19 07:30 Blood Blood Culture Gram Stain - Final 03/08/19 07:30 Blood Blood Culture - Final Enterococcus faecalis 03/04/19 18:31 Blood Blood Culture Gram Stain - Final 03/04/19 18:31 Blood Blood Culture - Final Enterococcus faecalis 03/06/19 09:55 Blood Blood Culture Gram Stain - Final 03/06/19 09:55 Blood Blood Culture - Final Enterococcus faecalis 03/06/19 10:10 Blood Blood Culture Gram Stain - Final 03/06/19 10:10 Blood Blood Culture - Final Enterococcus faecalis 03/06/19 02:42 Blood Blood Culture Gram Stain - Final 03/06/19 02:42 Blood Blood Culture - Final Enterococcus faecalis 03/08/19 07:30 Blood Blood Culture - Final 03/08/19 08:46 Blood Blood Culture - Final 03/06/19 11:12 Sputum Gram Stain - Final 03/06/19 11:12 Sputum Sputum Culture - Final 03/05/19 17:44 Blood Blood Culture Gram Stain - Final 03/05/19 17:44 Blood Blood Culture - Final Enterococcus faecalis 03/06/19 10:10 Blood Blood Culture - Final 03/06/19 09:55 Blood Blood Culture - Final 03/05/19 17:44 Blood Blood Culture - Final 03/06/19 02:42 Blood Blood Culture - Final 03/04/19 18:31 Blood Blood Culture - Final Assessment and Plan (1) Acute on chronic systolic CHF (congestive heart failure) Current Visit: Yes Status: Acute Code(s): I50.23 - ACUTE ON CHRONIC SYSTOLIC (CONGESTIVE) HEART FAILURE SNOMED Code(s): 425717292 (2) Cardiomyopathy Current Visit: Yes Status: Acute Code(s): I42.9 - CARDIOMYOPATHY, UNSPECIFIED SNOMED Code(s): 53601250 (3) Prosthetic valve endocarditis Narrative/Plan: 73-year-old gentleman with aortic valve replacement and prior CABG presented to Hospital and some he in worsening of his ischemic cardiomyopathy. He underwent biventricular ICD implantable pacemaker March 05. The he developed a fever and there are now positive blood cultures. The laboratory has identified enterococcus in the blood cultures. There is no specific other site of infection at this time other than the bacteremia. With aortic valve replacement concerns underlying endocarditis. Consequently antimicrobial therapy is transitioned to ampicillin sulbactam and gentamicin in synergistic dosing dosed by the pharmacy. Aware of his renal insufficiency however until bacteremia clears and there is a definitive alternative cause of the bacteremia would require gentamicin therapy for synergy. Follow blood cultures are requested. The patient has had central line and A-line just placed by the aircraft instrument tester. He is receiving fluid resuscitation and vasopressor therapy. 03/09/2019 the patient has had a LISSET performed today which verifies evidence of vegetation on the bioprosthetic aortic valve. The patient has many positive blood cultures. Enterococcus has been isolated. The patient has evidence of gentamicin synergy resistance. Gentamicin was discontinued. With this finding ceftriaxone is added to the Unasyn in attempts for synergy. Follow blood cultures will be obtained. The patient's renal failure is improving. He seemingly more stable. Hopefully he will now start to have ev idence of clearance of his bacteremia with the synergistic combination. 03/10/2019 Patient remains intubated sedated and ventilated however is decreased therapy. The patient's itching with Unasyn and Rocephin for the enterococcus endocarditis verified with a LISSET yesterday. Cardiology is following. 03/11/2019 patient has improved and will have further weaning trial tomorrow. The blood cultures are now negative over 48 hours, having a good response to antibiotic therapy. The synergistic therapy is now showing response and will continue for 6 weeks. 03/12/2019 the patient is having some improvement will likely be extubated today. Once the patient has consistently negative blood cultures IV access is required that he may receive his 6 weeks of intravenous antibiotic therapy with Unasyn and Rocephin, there are 2 negative blood cultures at this time. 03/13/2019 the patient has had further improvement of his status. He has now been extubated and doing well on nasal cannula oxygen. Not having significant hypotension. He is showing some ongoing improvement. 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 Likely have IV access placed soon and arrangements for the 6 weeks of ampicillin sulbactam and daptomycin which he is tolerating well. 03/15/2019 patient has had some further improvement of his status. Sitting upright able to eat some breakfast. Shortness of breath is improved. He is still with significant generalized weakness. Appears likely he will be in need of rehabilitation at discharge. 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 He was to have follow-up LISSET arranged in the future. 03/16/2019 reveals the patient to have some further improvement of his status. Showing some response to the current antibiotic therapy of Unasyn and Rocephin. Blood cultures have now cleared and remained with evidence of negative blood cultures. IV access and plans for outpatient intravenous antibiotic therapy are in process. Rehab placement is likely needed. The patient is profoundly weak a nd has a very complex need of multiple antibiotics which would not be feasible for home. Current Visit: Yes Status: Acute Code(s): T82.6XXA - INFECT/INFLM REACTION DUE TO CARDIAC VALVE PROSTHESIS, INIT; I38 - ENDOCARDITIS, VALVE UNSPECIFIED SNOMED Code(s): 633540893
[2019-03-17] MEDS: AMPICILLIN-SULBACTAM 3 GM in SODIUM CHLORIDE 0.9% 100 ML IVPB SCH ×4 (01:30→21:36)
[2019-03-17 06:16] LABS: Calcium 8.7 mg/dL (8.4-10.2); Potassium 3.8 mmol/L (3.5-5.1)
[2019-03-17 06:30] LABS: Basophils # (A) 0.1 k/uL (0-0.2); Basophils % (A) 1 %; Eosinophils # (A) 0.2 k/uL (0-0.7); Eosinophils % (A) 1 %; HCT 36.5 % (39.0-53.0); HGB 11.1 gm/dL (13.0-17.5); Hypochromasia Marked; Lymphocytes # (A) 1.5 k/uL (1.0-4.8); Lymphocytes % (A) 10 %; MCH 29.6 pg (25.0-35.0); MCHC 30.4 g/dL (31.0-37.0); MCV 97.3 fL (80.0-100.0); Mean Platelet Volume 7.7; Monocytes # (A) 0.8 k/uL (0-1.0); Monocytes % (A) 5 %; Neutrophils # (A) 13.1 k/uL (1.3-7.7); Neutrophils % (A) 82 %; Platelet Count 297 k/uL (150-450); RBC 3.75 m/uL (4.30-5.90); RDW 14.9 % (11.5-15.5); WBC 15.9 k/uL (3.8-10.6)
[2019-03-17 07:28] LABS: Glucose,Whole Blood 111 mg/dL (75-99)
[2019-03-17] MEDS: INSULIN ASPART (NovoLOG) 100 UNIT/ML VIAL SQ SCH ×5 (07:40→21:37)
--- NOTE | 2019-03-17 07:43 | P.PN ---
Subjective This is a pleasant 73 years old male with past medical history of coronary artery disease patient , , heart failure, asthma, GERD, hyperlipidemia, h ypertension, osteoarthritis, valvular heart disease. Patient was admitted with non-STEMI, he underwent cardiac cath on 03/03/2019, showing patent stents and coronaries. Also patient underwent elective EP study yesterday and status post AICD placement, patient is currently in the ICU intubated and could not provide information, he was extubated for short time before he needed reintubation. Information was taken from the staff at the medical records as patient cannot contribute to history . He has low ejection fraction 20-25%. Patient is obese and he needed low dose of pressors. He has distended abdomen, possibly from fat. No focal neurological findings. Also he has positive blood culture with enterococcus and trending up leukocytes. Infectious disease was consulted, patient is currently on Zosyn. Also patient creatinine is trending up however patient is making reasonable urine output, he was on Lasix drip but this was stopped. 03/07/2019 Patient in the ICU intubated and sedated, his vitals with blood pressure 130/54, and he is saturating 98%. His WBC is back to normal at 10.5. Creatinine is at 2.14 with slight improvement down from 2.6 yesterday. He has several blood culture positive for enterococcus. Chest x-ray showing no significant change. Patient has been evaluated by primer charging tool setter and section gang worker, section gang worker considering LISSET if blood culture remains positive. Patient also was started on gentamicin and Unasyn as per infectious disease recommendation 03/08/2019 Patient remains in the ICU, he still intubated and sedated. Blood pressure 108/52, saturating 96%, heart rate is 70. K, hemoglobin is stable at 10.4, platelets are within normal limits. Creatinine is improving gradually down to 1.7, electrolytes included sodium and potassium are within normal limits, sugar is running between 129-155. Magnesium is elevated at 2.5,. He has several bloo d culture that's positive for group D enterococcus faecalis, cardiology R following the case and the plan is for transesophageal echocardiogram tomorrow to rule out endocarditis 03/09/2019 Patient is ICU intubated and sedated, patient is planned to go for transesophageal echocardiogram today to rule out endocarditis in view of his persistent bacteremia/septicemia. Patient remains currently on Unasyn. Patient is slightly bradycardic at 57-60, he had low-grade temperature yesterday of 100.2, blood pressure 102/58, lap showing mild leukocytosis of 12.3 K, hemoglobin is stable. Creatinine is improving to 1.75. ABGs showed pH of 7.4, pCO2 42 which are within normal limits, pO2 is 120. Repeat blood cultures are pending, repeat chest x-ray from today showing fluid overload with interstitial edema with possible atelectasis. 03/10/2019 Patient remains in the ICU intubated and sedated, yesterday he had a LISSET which showing low ejection fraction around 20% with agitation note dictated on the aortic valve. Also patient noted to bleed easily given from subcutaneous injection site, currently is on subcu heparin to 8 which is lower to every 12 this morning, he is also on aspirin and Plavix, platelets are normal. We don't to check PT and INR and PTT today. Last night patient was started on Cardizem drip for better control of his blood pressure and heart rate and blood pressure. Patient is followed closely by cardiology and rectal care team. Prognosis is extremely poor 03/11/2019 Patient remains in the ICU, he is intubated and sedated. Patient failed weaning trials today by the pulmonary team. Patient is still tachycardic and he was started on Cardizem drip today, blood pressure 111/66. mild leukocytosis of 11.4 k, hemoglobin 10.2, sodium is 148, creatinine 1.8, compared to 1.7 yesterday. repeat blood cultures still shown enterococcus. the patient remains on unasyn and ceftriaxone currently with infectious disease followed the case closely. patient is following closely by cardiology and pulmonary/critical care team. prognosis remains guarded 03/12/2019 Patient remains in the ICU in critical condition, he is intubated and sedated however he is undergoing wound and a trial which has been failed previously. Blood pressure on the low side 66/38, wbc of 10.2 k, hemoglobin 10.1. his creatinine is stable at 1.7, high sodium on 148. Sugar is controlled at the r bo of 120-143. Repeat blood culture from 03/10 and 03/09 still pending which shows no growth so far. Repeat chest x-ray showed stable findings. His been followed closely by several consultants including cardiology, critical care and infectious disease recommended to continue with Unasyn and ceftriaxone for 6 weeks. 03/16/2019 Patient remains in the ICU. Is a status post extubation. Currently he is on oxygen nasal cannula 6 L/m with his oxygen saturation at 99%. Rest of vitals show a respiratory rate of 22-25, with tachycardia 108 07/11/2013, rest of vitals stable and patient is afebrile for the last few days. Labs showing resistant leukocytosis at 16.8 K, creatinine stable at 2.0. He has no chest pain, no headache. No change in bowel habits. He remains on Unasyn and ceftri axone as per infectious disease recommendation, his Lasix was lowered to 40 mg IV daily, and he is off the amiodarone drip and currently is on amiodarone pills at 200 mg twice daily. Patient is able to eat and drink so D5W was stopped. Pain is controlled. 03/17/2019 Patient gives improving, he is awake and oriented, he knows why he is in the hospital. He feels generally weak and still short of breath. He is saturating 78-88% on room air, however patient is non-adherent to his oxygen therapy and he keeps taken off his nasal cannula. His saturation goes up to 97% on 4 L oxygen via high flow cannula. No chest pain. Slightly tachycardic. Blood pressure stable. Still have leukocytosis of 15.9 and creatinine stable at 2.1. Sugar control. Patient remains on Unasyn and ceftriaxone and he will need a PICC line and prolonged antibiotic course. ECF is recommended for patient upon discharge. Also is on Lasix 40 mg twice daily and amiodarone 200 mg twice daily basis metoprolol 75 mg 3 times daily. Pain controlled Discussed with the staff today Review of systems CONSTITUTIONAL: No fever HEENT: No recent visual problems or hearing problems. Denied any sore throat. CARDIOVASCULAR: No orthopnea, PND, no palpitations, no syncope. PULMONARY:no cough, no hemoptysis. GASTROINTESTINAL: No diarrhea, no nausea, no vomiting, no abdominal pain. Normoactive bowel sounds. NEUROLOGICAL: No headaches, no weakness, no numbness. HEMATOLOGICAL: Denies any bleeding or petechiae. GENITOURINARY: Denies any burning micturition, frequency, or urgency. MUSCULOSKELETAL/RHEUMATOLOGICAL: Denies any joint pain, swelling, or any muscle pain. ENDOCRINE: Denies any polyuria or polydipsia. Active Medications Generic Name Dose Route Start Last Admin Trade Name Freq PRN Reason Stop Dose Admin Acetaminophen 650 mg 03/05/19 18:53 03/14/19 12:24 Tylenol Tab PO 650 mg Q6HR PRN Administration Mild Pain Albuterol Sulfate 2.5 mg 03/01/19 20:10 03/06/19 15:31 Ventolin Nebulized INHALATION 2.5 mg Q4H PRN Administration sob Allopurinol 100 mg 03/01/19 20:10 Zyloprim PO HS PRN gout Amiodarone HCl 200 mg 03/16/19 16:00 03/16/19 21:19 Cordarone PO 200 mg TID DEANDRA Administration Aspirin 81 mg 03/09/19 09:00 03/16/19 08:58 Aspirin PO 81 mg DAILY DEANDRA Administration Atorvastatin Calcium 40 mg 03/09/19 09:00 03/16/19 08:58 Lipitor PO 40 mg DAILY DEANDRA Administration Bisacodyl 10 mg 03/01/19 20:12 Dulcolax PO DAILY PRN Constipation Clopidogrel Bisulfate 75 mg 03/01/19 21:00 03/16/19 20:47 Plavix PO 75 mg HS DEANDRA Administration Furosemide 40 mg 03/16/19 21:00 03/16/19 20:47 Lasix IV 40 mg BID DEANDRA Administration Heparin Sodium (Porcine) 5,000 unit 03/10/19 21:00 03/16/19 20:47 Heparin SQ 5,000 unit Q12HR DEANDRA Administration Hydromorphone HCl 1 mg 03/08/19 15:04 03/15/19 10:05 Dilaudid IVP 1 mg Q3H PRN Administration Pain Ampicillin Sodium/Sulbactam 100 mls @ 200 mls/hr 03/08/19 14:00 03/17/19 01:30 Sodium 3 gm/ Sodium Chloride IVPB 200 mls/hr Q6H DEANDRA Administration Ceftriaxone Sodium 2 gm/ 50 mls @ 100 mls/hr 03/09/19 17:00 03/16/19 08:57 Sodium Chloride IVPB 100 mls/hr Q24HR DEANDRA Administration Insulin Aspart 0 unit 03/14/19 07:30 03/17/19 07:40 Novolog SQ Not Given ACHS [facility] Protocol Ipratropium [place] 0.5 mg 03/02/19 08:00 03/16/19 19:24 Atrovent Nebulized INHALATION 0.5 mg RT-QID DEANDRA Administration Metoprolol Tartrate 100 mg 03/17/19 09:00 Lopressor PO TID [facility] Miscellaneous Information 1 each 03/11/19 14:10 Potassium Per Protocol MISCELLANE DAILY PRN Per Protocol Protocol Nitroglycerin 0.4 mg 03/01/19 16:04 Nitrostat SUBLINGUAL Q5M PRN Chest Pain Pantoprazole Sodium 40 mg 03/09/19 09:00 03/16/19 08:59 Protonix IVP 40 mg DAILY DEANDRA Administration Sodium Chloride 10 ml 03/05/19 21:00 03/16/19 20:48 Saline Flush IV 10 ml Q12HR DEANDRA Administration Objective - Vital Signs Vital signs: Vital Signs Temp 97.8 F 03/17/19 04:00 Pulse 105 H 03/17/19 07:00 Resp 20 03/17/19 07:00 BP 114/82 03/17/19 07:00 Pulse Ox 97 03/17/19 06:00 Intake & Output 03/16/19 03/17/19 03/17/19 18:59 06:59 18:59 Intake Total 710 810 80 Output Total 808 985 Balance -98 -175 80 Weight 122.2 kg 120.5 kg Intake: IV 460 410 80 Ampicillin-Sulbactam 3 gm 200 200 In Sodium Chloride 0.9% 100 ml @ 200 mls/hr IVPB Q6H [facility] Rx#:[id number] KVO 260 210 80 Intake, IV Titration 250 Amount Potassium Chloride 20 meq 200 In Water For Injection 1 100ml.bag @ 50 mls/hr IVPB Q2H [facility] Rx#: [id number] cefTRIAXone 2 gm In 50 Sodium Chloride 0.9% 50 ml @ 100 mls/hr IVPB Q24HR [facility] Rx#:[id number] Oral 400 Output: Urine 808 985 Other: Voiding Method Indwelling Catheter Indwelling Catheter # Bowel Movements 1 1 ABP, PAP, CO, CI - Last Documented Arterial Blood Pressure 105/93 - Exam -GENERAL: The patient is intubated and sedated HEENT: Pupils are round and equally reacting to light. EOMI. No scleral icterus. No conjunctival pallor. Normocephalic, atraumatic. No pharyngeal erythema. No thyromegaly. CARDIOVASCULAR: S1 and S2 present. No murmurs, rubs, or gallops. PULMONARY: Chest is clear to auscultation, no wheezing or crackles. ABDOMEN: Soft, nontender, nondistended, normoactive bowel sounds. No palpable organomegaly. MUSCULOSKELETAL: No joint swelling or deformity. EXTREMITIES: No cyanosis, clubbing, or pedal edema. NEUROLOGICAL: Gross neurological examination did not reveal any focal deficits. SKIN: No rashes. no petechiae. - Labs CBC & Chem 7: 03/17/19 05:41 03/17/19 05:36 Labs: Abnormal Lab Results - Last 24 Hours (Table) 03/16/19 03/16/19 03/16/19 Range/Units 11:52 16:32 20:34 WBC (3.8-10.6) k/uL RBC (4.30-5.90) m/uL Hgb (13.0-17.5) gm/dL Hct (39.0-53.0) % MCHC (31.0-37.0) g/dL Neutrophils # (1.3-7.7) k/uL BUN (9-20) mg/dL Creatinine (0.66-1.25) mg/dL Glucose (74-99) mg/dL POC Glucose (mg/dL) 145 H 138 H 146 H (75-99) mg/dL 03/17/19 03/17/19 03/17/19 Range/Units 05:36 05:41 06:39 WBC 15.9 H (3.8-10.6) k/uL RBC 3.75 L (4.30-5.90) m/uL Hgb 11.1 L (13.0-17.5) gm/dL Hct 36.5 L (39.0-53.0) % MCHC 30.4 L (31.0-37.0) g/dL Neutrophils # 13.1 H (1.3-7.7) k/uL BUN 75 H (9-20) mg/dL Creatinine 2.10 H (0.66-1.25) mg/dL Glucose 114 H (74-99) mg/dL POC Glucose (mg/dL) 111 H (75-99) mg/dL Microbiology - Last 24 Hours (Table) 03/10/19 12:00 Blood Culture - Final Blood No Growth after 144 hours Assessment and Plan Assessment: Cardiogenic and septic shock . Improved Acute on chronic systolic congestive heart failure with ejection fraction 20- 25%, on the top of history of severe ischemic cardiomyopathy. 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 Continue with antibiotics as per infectious disease recommendation, for 6 more weeks and currently he is on Unasyn and ceftriaxone, continue with oxygen and follow-up with pulmonary/critical team. Patient is on Lasix. . Follow-up cardiology recommendations. Follow-up WBC and creatinine.Labs and medication were reviewed. Continue same treatment. Continue with symptomatic treatment. Resume home medication. Monitor lytes and vitals. DVT and GI prophylaxis. Further recommendations of the clinical course of the patient DVT prophylaxis: Subcutaneous heparin GI Prophylaxis: Protonix Prognosis is guarded
[2019-03-17] MEDS: IPRATROPIUM 0.5 MG/2.5 ML NEBU INHALATION SCH ×4 (07:56→20:54)
[2019-03-17] MEDS: PANTOPRAZOLE 40 MG/10 ML VIAL IVP SCH (08:06)
[2019-03-17] MEDS: HEPARIN SODIUM,PORCINE 5,000 UNIT/ML 1 ML VIAL SQ SCH ×3 (08:07→21:37)
[2019-03-17] MEDS: FUROSEMIDE 10 MG/ML 4 ML VIAL IV SCH ×2 (08:07→21:36)
[2019-03-17] MEDS: ATORVASTATIN 40 MG TAB PO SCH (08:11)
[2019-03-17] MEDS: AMIODARONE 200 MG TAB PO SCH ×3 (08:11→21:37)
[2019-03-17] MEDS: ASPIRIN 81 MG PO SCH (08:11)
[2019-03-17] MEDS: METOPROLOL TARTRATE 50 MG TAB PO SCH ×3 (08:12→21:38)
--- NOTE | 2019-03-17 08:20 | P.PN ---
Subjective Progress Note Date: 03/17/19 Principal diagnosis: Acute hypoxic respiratory failure secondary to cardiogenic shock and septic shock, acute endocarditis This is a 71-year-old male patient with known history of ischemic cardiomyopathy along with known history of coronary artery disease and previous aortic valve replacement, AVR, and previous coronary artery bypass surgery, who presented to the hospital because of chest pain and non-STEMI. The patient has had previous catheterizations with stenting done in the distal left main as well as the proximal circumflex. He has a chronically totally occluded RCA. As mentioned, the patient was admitted with chest pain or shortness of breath and acute non-STEMI. The patient underwent another cardiac catheterization and the patient was found to have taken stent to the distal left mainstem to proximal circumflex, patent BELTRAN to LAD, chronic totally occluded RCA. Recommendations were mainly to maximize medical management. The patient was being treated for congestion heart failure. He was receiving Lasix drip and he was having ongoing orthopnea. He was taken yesterday to the [facility] and the patient was given biventricular pacing/AICD. Noted postop, the patient was extubated. He became short of breath and went into significant amount of respiratory distress and within 10 minutes she had to be reintubated. He was brought into the intensive care unit intubated on a mechanical ventilator. Initial blood gases showed a pH of 7.28 with a pCO2 of 51 and pO2 of 234. Necessary vent changes were done. The most recent blood gas showed a pH of 7.48 with a pCO2 of 28 and pO2 of 229. The morning vent settings include a tidal volume 400 with a rate of 18 and FiO2 of 40% with 5. The setting was adjusted based on the most recent blood gas. I noted that the patient is also on pressors and overnight the patient has required norepinephrine infusion and currently is running at 0.1 mcg/kg per minute. The patient is also on Lasix drip at 10 mg an hour. He is producing urine output. However, the patient has developed an acute kidney injury. Cr eatinine was normal at the time of admission on 02/27/2019 and there has been progressive rise in the creatinine which is up to 2.6 at this point in time. He was he was developing fevers with a temperature 11.6 on 03/04/2019. The patient has blood culture sent a blood culture came back positive for enterococcus group D. The patient was on cefazolin. IV Zosyn was added by the primary care team. This morning, the patient is sedated with propofol is currently running at 50 mics. His, comfortable. He is producing urine output. Her net fluid balance is -642 mL for yesterday. His cardiac rhythm is paced. His white cell count is 19.4. He is obviously septic condition with a positive blood culture. UA the time of admission was negative. He has a Diaz catheter in place. Abdomen is soft. His umbilical hernia. Surgical wound site over the left biventricular pacemaker is dry clean and intact. No significant orotracheal secretions. Chest x-ray from today shows cardiomegaly and lower lobe consolidation as the patient is a left lower lobe consolidation of the right upper lobe! The echocardiogram at shown an ejection fraction of 20-25%. There is moderate concentric left ventricular hypertrophy. There is severe global hypokinesis. No pericardial effusion. The peak gradient across the aortic valve was 35 mmHg. It is a normal functioning bioprosthetic valve. There is moderate mitral regurgitation. Mild pulmonary hypertension. on 03/07/2019 the patient remains sedated and intubated on mechanical ventilator. The patient is on propofol for sedation. The patient is also on a mechanical ventilator on assist control mode with a tidal volume of 000 and the rate of 18 with an FiO2 of 40% and PEEP of 5. The chest x-ray from today shows stable findings and there is left lower lobe consolidation/effusion. ET tube is in a good location. The left ear showed a pH of 7.44 with a pCO2 of 34 and pO2 of 131. Based on this, there is a component of respiratory alkalosis and I dropped a respiratory rate down to 14. The telephone was kept at 500 for now. I took this patient off the Lasix therapy yesterday as the patient's CVP was running low and the patient was also developing acute kidney injury. Today CVP is also low measuring as high as 4-5 millimeters of mercury. Based on that, the patient was started on oral Lasix set of IV Lasix for cardiology. He is prod ucing adequate amount of urine output. Creatinine is also improving and is down to 2.1. The patient is afebrile. The patient was seen by infectious disease. Antibiotic adjustments were done and the patient was placed on a combination of Unasyn and gentamicin. No clear indication for endocarditis. The patient has 3 positive blood culture that was positive for E faecalis, in the patient was si mplified back to Unasyn and gentamicin was discontinued as the patient was found to be having a Enterococcus faecalis resistant to gentamicin.. The patient is producing adequate amount of urine output. He is still on pressors and the present doses been weaned down to 0.07 micrograms per kilogram per minute of norepinephrine infusion. The patient will be started on enteral feeding for nutritional support. Cardiology is on the case. Cardiac rhythm remains paced. No significant electrolyte imbalance in the patient's white cell count is down to 10.5. 03/08/2019, the patient remains intubated on a mechanical ventilator. The patient remains hemodynamically unstable requiring pressors and the norepinephrine infusion is running at 0.08 mcg/kg per minute. He is also on Prinivil at 40 mics per KG. The patient a mechanical ventilator on assist control mode with a tidal volume of 500 and rate of 18 with an FiO2 of 40% and a PEEP of 5. Chest x-ray is unchanged compared to yesterday and there are some white pulmonary vessel congestion. The patient is producing 25 mL of urine output on an hourly basis. Net fluid balance is positive to 11 mL over the past 24 hours. He is currently on oral Lasix. He is also on norepinephrine infusion. He is on enteral feeding for nutritional support. He is receiving before for sedation. Note that all of the blood cultures came back positive for Enterococcus faecalis. The patient remains on IV Unasyn. Follow-up cultures were obtained to make sure there is no ongoing bacteremia. There is a high likely what that it there may be a component of infective endocarditis. The patient will need a LISSET to evaluate this further. His cardiac rhythm is paced. The fibrillator pocket is clean and intact at this point in time. As for his continued kidney injury, the patient's creatinine is improving and the creatinine is down to 1.72. The white cell count is also down to 10.5 and the patient is responding to IV Unasyn for now. Reevaluated today on 03/09/2019, patient remains on mechanical ventilation, he is still on norepinephrine at 0.05 mcg/kg/m, still on propofol at 50 mcg/kg/m. He is on mechanical ventilation, assist control rate of 18, FiO2 is 40%, PEEP of 5. Tidal volume is 500. Transesophageal echocardiogram is suspicious for vegetations involving the aortic bioprosthetic valve there was also evidence of thickened mitral valve leaflets with moderate mitral regurgitation. His LV function was noted to be impaired ejection fraction of 20%. ABG this morning showed a pO2 of 120 pCO2 of 42 pH of 7.42 11 lites are normal renal profile is abnormal with BUN of 42 creatinine of 1.75 WBC count is 12.3 hemoglobin is 10.2. Chest x-ray is suspicious for mild interstitial edema and small bilateral pleural effusions. There is also some retrocardiac atelectasis. Patient is sedated, on mechanical ventilation, I have no plans to wean the patient today since LISSET was scheduled to be done shortly after I evaluated the patient. Patient was reevaluated today on 03/10/2019, remains on mechanical ventilation, his ventilator settings are assist control rate of 14 FiO2 is 40% PEEP is 5 tidal volume is 500. Patient is on Cardizem drip as per cardiology 5 mg per hour, his also on metoprolol, and he is on norepinephrine at 0.05 mcg/kg/m. Propofol is 25 mcg/kg/m. Chest x-ray showed cardiomegaly and prominent pulmonary vasculature with minimal basilar atelectasis. ABG showed a pO2 of 117 pCO2 of 43 pH of 7.45. WBC count is 14.8 hemoglobin is 10.5. Electrolytes are relatively normal. Renal profile showed a BUN of 42 creatinine of 1.70. Patient remains sedated, however I plan to hold his sedation today, and hopefully assess mental status and decide whether we can proceed with any further weaning trials. Family is at bedside and they were updated on his condition and on the fact that he has endocarditis. Antibiotics were addressed by Dr. Nguyễn, patient is now on Unasyn. He also remains on Rocephin. Reevaluated today on 03/11/2019, remains in the ICU on mechanical ventilation. His ventilator settings are assist control rate of 14, tidal volume is 500 FiO2 of 35% PEEP is 5. Remains on propofol at 30 mcg/kg/m, he is off pressors. ABG this morning showed a pO2 of 103 pCO2 of 39 pH of 7.50. Electrolytes are normal however his BUN is 51 creatinine is 1.84. WBC count is 11.4 hemoglobin is 10.2. Patient remains on nutritional support via enteral feeding. Remains on antibiotics for his underlying endocarditis as per infectious disease. Yesterday the patient was given a sedation interruption, and a trial of weaning, however he was extremely agitated, restless, and could not go on to wean or extubated the patient. This would be reattempted again today. Reevaluated today in the ICU on 03/12/2019, patient remains on mechanical ventilation, his ventilator settings are tidal volume of 500 assist control rate of 14 FiO2 35% PEEP of 5. Patient remains on propofol, presently off norepinephrine, patient was given a weaning trial yesterday, however he became extremely tachycardic, and restless agitated. Today I plan to wean the patient slowly on Precedex to be started after stopping propofol. Patient will be awakened and will be given definitely a weaning trial today. Depending on how he does on pressure support and CPAP, may or may not proceed to full extubation. Chest x-ray is showing mild congestive changes. ABG this morning showed a pO2 of 77 pCO2 of 45 pH of 7.48 electrolytes showed elevated sodium of 148 BUN is 61 creatinine 1.78. Bicarb is 34 WBC count is 10.2 hemoglobin is 10.1. Patient remains on antibiotics, not requiring pressors at this point, has been intermittently on and off norepinephrine Reevaluated today on 03/13/2019, patient was extubated from mechanical venti lation yesterday, patient is presently on high flow nasal cannula, O2 saturation is in the mid 90s, tolerated the extubation well since yesterday. Chest x-ray continues to show evidence of mild congestive heart failure. However the patient has elevated sodium today, it is 153, and I have switched his IV fluid to D5W, will hold on the Lasix for now, and he will receive D5W at 50 mL per hour. Patient received Lasix earlier today by nephrology. Patient remains on antibiotics for his endocarditis. And he is hemodynamically stable at present. Reevaluated today on 03/14/2019, patient remains off mechanical ventilation, on high flow nasal cannula, O2 saturation is excellent. Chest x-ray showed mild interstitial edema. Patient continues to have intermittent episodes of confusion and disorientation. CT of the head is negative for septic emboli involving the brain. Sodium remains a bit elevated, and the process of correcting his sodium with D5W. Lasix is still on hold. BUN is 69 creatinine is 1.99 sodium today is 150. is at bedside, and she was updated on his condition, and explained to her that the patient may have metabolic encephalopathy. Related to his hypernatremia and sepsis with bacteremia. Patient was reevaluated today on 03/15/2019, seems to be doing fairly well, remains off mechanical ventilation,he is steadily improving, Denies any specific complaints,his mental status seems to be intermittently waxing and waning. But today he seems to be more appropriate.chest x-ray continues to show evidence of interstitial edema/CHF, his electrolytes are improving sodium is down to 146. BUN is 75 creatinine is 2.19. ABG last night showed a pO2 of 61 pCO2 48 pH of 7.43, hence his FiO2 was increased and he is presently on 6 L nasal cannula. On 03/17/2019 patient seen in follow-up in the intensive care unit, he is awake and alert, in no acute distress, he is currently on room air, with a pulse ox of 92%, maintenance IV fluids are present and normal saline at a rate of 10 ML per hour, denies any worsening dyspnea, lung sounds reveal a few scattered wheezes, no rhonchi, no rales. No altered mentation, no fever or chills, vital signs are stable. Follow up blood cultures are negative from 03/09/2019, and 03/10/2019. Patient is a combination of Unasyn and Rocephin for antibiotic coverage. No acute events overnight, today's labs have been reviewed, showing blood cell count of 15.9, hemoglobin of 11.1, electrolytes within normal limits, renal profile is stable, with BUN of 75 and creatinine of 2.10. Objective - Vital Signs Vital signs: Vital Signs Temp 97.8 F 03/17/19 04:00 Pulse 102 H 03/17/19 08:05 Resp 20 03/17/19 07:00 BP 114/82 03/17/19 07:00 Pulse Ox 97 03/17/19 06:00 Intake & Output 03/16/19 03/17/19 03/17/19 18:59 06:59 18:59 Intake Total 710 810 80 Output Total 808 985 Balance -98 -175 80 Weight 122.2 kg 120.5 kg Intake: IV 460 410 80 Ampicillin-Sulbactam 3 gm 200 200 In Sodium Chloride 0.9% 100 ml @ 200 mls/hr IVPB Q6H [facility] Rx#:[id number] KVO 260 210 80 Intake, IV Titration 250 Amount Potassium Chloride 20 meq 200 In Water For Injection 1 100ml.bag @ 50 mls/hr IVPB Q2H [facility] Rx#: [id number] cefTRIAXone 2 gm In 50 Sodium Chloride 0.9% 50 ml @ 100 mls/hr IVPB Q24HR [facility] Rx#:[id number] Oral 400 Output: Urine 808 985 Other: Voiding Method Indwelling Catheter Indwelling Catheter # Bowel Movements 1 1 ABP, PAP, CO, CI - Last Documented Arterial Blood Pressure 105/93 - Exam GENERAL EXAM: Alert, pleasant, 73-year-old obese white male, on room air, comfortable in no apparent distress. HEAD: Normocephalic/atraumatic. EYES: Normal reaction of pupils, equal size. Conjunctiva pink, sclera white. NOSE: Clear with pink turbinates. THROAT: No erythema or exudates. NECK: No masses, no JVD, no thyroid enlargement, no adenopathy. CHEST: No chest wall deformity. Symmetrical expansion. LUNGS: Equal air entry with a few scattered wheezes, no rhonchi, no rales CVS: Regular rate and rhythm, normal S1 and S2, no gallops, no murmurs, no rubs ABDOMEN: Soft, obese, nontender. No hepatosplenomegaly, normal bowel sounds, no guarding or rigidity. EXTREMITIES: No clubbing, no edema, no cyanosis, 2+ pulses and upper and lower extremities. MUSCULOSKELETAL: Muscle strength and tone normal. SPINE: No scoliosis or deformity SKIN: No rashes CENTRAL NERVOUS SYSTEM: Alert and oriented -3. No focal deficits, tone is normal in all 4 extremities. PSYCHIATRIC: Alert and oriented -3. Appropriate affect. Intact judgment and insight. - Labs CBC & Chem 7: 03/17/19 05:41 03/17/19 05:36 Labs: Abnormal Lab Results - Last 24 Hours (Table) 03/16/19 03/16/19 03/16/19 Range/Units 11:52 16:32 20:34 WBC (3.8-10.6) k/uL RBC (4.30-5.90) m/uL Hgb (13.0-17.5) gm/dL Hct (39.0-53.0) % MCHC (31.0-37.0) g/dL Neutrophils # (1.3-7.7) k/uL BUN (9-20) mg/dL Creatinine (0.66-1.25) mg/dL Glucose (74-99) mg/dL POC Glucose (mg/dL) 145 H 138 H 146 H (75-99) mg/dL 03/17/19 03/17/19 03/17/19 Range/Units 05:36 05:41 06:39 WBC 15.9 H (3.8-10.6) k/uL RBC 3.75 L (4.30-5.90) m/uL Hgb 11.1 L (13.0-17.5) gm/dL Hct 36.5 L (39.0-53.0) % MCHC 30.4 L (31.0-37.0) g/dL Neutrophils # 13.1 H (1.3-7.7) k/uL BUN 75 H (9-20) mg/dL Creatinine 2.10 H (0.66-1.25) mg/dL Glucose 114 H (74-99) mg/dL POC Glucose (mg/dL) 111 H (75-99) mg/dL Microbiology - Last 24 Hours (Table) 03/10/19 12:00 Blood Culture - Final Blood No Growth after 144 hours Assessment and Plan Plan: Assessment: 1 acute hypoxic respiratory failure secondary to cardiogenic shock and septic shock. Patient was extubated successfully on 03/12/2019. 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 3 severe LV dysfunction and cardiomyopathy, ischemic in nature, ejection fraction of 20-25% post-insertion of AICD. 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 6 septic shock secondary to enterococcal infection 7 acute kidney injury secondary to sepsis, ATN, and possibly contrast nephropathy 8 history of underlying COPD, hypertension, hyperlipidemia, obesity, and generalized anxiety disorder. 9 hypernatremia secondary to free water depletion, and diuretics, hence we'll change the IV fluid to D5W, and hydrate the patient cautiously with D5W, and liberalize free water intake 10 acute metabolic encephalopathy secondary to electrolytes imbalance, hypernatremia, and sepsis as well as bacteremia. Plan: Continue antibiotics, follow blood cultures are negative, no fever or chills, medicines are stable, altered mentation, no acute issues overnight, increase activity as tolerated. Encourage deep breathing and coughing. Patient is stable to transfer out of the intensive care unit day to [facility] I performed a history & physical examination of the patient and discussed their management with my nurse practitioner, Dana Alexandre. I reviewed the nurse practitioner's note and agree with the documented findings and plan of care. Lung sounds are positive for scattered wheezes throughout the lung nolen. The findings and the impression was discussed with the patient. I attest to the documentation by the nurse practitioner. Time with Patient: Less than 30
--- NOTE | 2019-03-17 10:15 | PN ---
PROGRESS NOTE This is a gentleman with a prosthetic valve endocarditis. He also has a biventricular ICD. He is in atrial fib, rate control is still not very optimal, but there is modest improvement. He is making urine. Denies chest pain. Confusion is better. Vital signs are stable. JVD is evident 2 cm. S1, S2 heard normally. Short systolic murmur is audible at the base, irregular rate and rhythm is noted. Lungs reveal improved air entry. Abdomen and lower extremity exam is unchanged. I am recommending that we increase the metoprolol to 100 mg t.i.d. Continue all other medications as before. MMODL / IJN: [id number] /
[2019-03-17] MEDS ORDERED: POTASSIUM CHLORIDE ER 20 MEQ TAB.ER PO STA (11:23)
[2019-03-17 11:33] LABS: Glucose,Whole Blood 159 mg/dL (75-99)
[2019-03-17 16:46] LABS: Glucose,Whole Blood 154 mg/dL (75-99)
[2019-03-17 18:01] LABS: Glucose,Whole Blood 138 mg/dL (75-99)
--- NOTE | 2019-03-17 18:59 | PN ---
PROGRESS NOTE The patient is seen for followup for acute kidney injury. He is sitting out of bed. He is comfortable. Patient denies any significant complaints. Blood pressure this morning was 127/95, heart rate of 98 per minute, patient is afebrile. Examination of the heart S1, S2. Examination of the lungs, bilateral breath sounds are heard. Decreased breath sounds at bases. Abdomen is soft, obese, nontender. Examination of lower extremities shows edema 1+ bilaterally. ASSISTANT TECHNICIAN exam grossly intact. LABS SHOW: Sodium 142, potassium 3.8, BUN 75, creatinine 2.1, hemoglobin 11.1 g/dL. ASSESSMENT: 1. Acute kidney injury, acute tubular necrosis. Renal function fairly stable. Lasix was increased yesterday. I will continue with twice a day dosing of IV Lasix. 2. Sepsis with endocarditis and Enterococcus bacteremia. Repeat blood cultures have been negative. Patient is maintained on ceftriaxone and Unasyn. 3. Fluid overload/congestive heart failure currently improved. 4. Hypoxic respiratory failure, status post extubation. PLAN: Continue Lasix 40 mg IV q.12 hours. Repeat labs in a.m. MMODL / IJN: [id number] /
[2019-03-17 20:22] LABS: Glucose,Whole Blood 191 mg/dL (75-99)
[2019-03-17] MEDS: CLOPIDOGREL 75 MG TAB PO SCH (21:36)
[2019-03-18] MEDS: AMPICILLIN-SULBACTAM 3 GM in SODIUM CHLORIDE 0.9% 100 ML IVPB SCH ×3 (01:57→21:51)
[2019-03-18 06:28] LABS: Glucose,Whole Blood 131 mg/dL (75-99)
[2019-03-18] MEDS: INSULIN ASPART (NovoLOG) 100 UNIT/ML VIAL SQ SCH ×4 (06:32→21:51)
[2019-03-18 06:33] LABS: Calcium 8.8 mg/dL (8.4-10.2); Potassium 3.9 mmol/L (3.5-5.1)
[2019-03-18 06:39] LABS: HCT 36.8 % (39.0-53.0); HGB 11.4 gm/dL (13.0-17.5); Hypochromasia Moderate; MCH 28.8 pg (25.0-35.0); MCV 92.9 fL (80.0-100.0); Mean Platelet Volume 8.6; Platelet Count 317 k/uL (150-450); RBC 3.97 m/uL (4.30-5.90); RDW 15.9 % (11.5-15.5); WBC 15.9 k/uL (3.8-10.6)
[2019-03-18 07:12] LABS: Anisocytosis (M) Present; Lymphocytes # (M) 2.07 k/uL (1.0-4.8); Monocytes # (M) 0.48 k/uL (0-1.0); Neutrophils # (M) 13.36 k/uL (1.3-7.7); Neutrophils % (M) 84 %; Nucleated Red Blood Cells 0 /100 WBC (0-0); Polychromasia Present; Total Cells Counted 100
--- NOTE | 2019-03-18 08:53 | P.PN ---
Subjective This is a pleasant 73 years old male with past medical history of coronary artery disease patient , , heart failure, asthma, GERD, hyperlipidemia, h ypertension, osteoarthritis, valvular heart disease. Patient was admitted with non-STEMI, he underwent cardiac cath on 03/03/2019, showing patent stents and coronaries. Also patient underwent elective EP study yesterday and status post AICD placement, patient is currently in the ICU intubated and could not provide information, he was extubated for short time before he needed reintubation. Information was taken from the staff at the medical records as patient cannot contribute to history . He has low ejection fraction 20-25%. Patient is obese and he needed low dose of pressors. He has distended abdomen, possibly from fat. No focal neurological findings. Also he has positive blood culture with enterococcus and trending up leukocytes. Infectious disease was consulted, patient is currently on Zosyn. Also patient creatinine is trending up however patient is making reasonable urine output, he was on Lasix drip but this was stopped. 03/07/2019 Patient in the ICU intubated and sedated, his vitals with blood pressure 130/54, and he is saturating 98%. His WBC is back to normal at 10.5. Creatinine is at 2.14 with slight improvement down from 2.6 yesterday. He has several blood culture positive for enterococcus. Chest x-ray showing no significant change. Patient has been evaluated by jammer hooker and mall manager, mall manager considering LISSET if blood culture remains positive. Patient also was started on gentamicin and Unasyn as per infectious disease recommendation 03/08/2019 Patient remains in the ICU, he still intubated and sedated. Blood pressure 108/52, saturating 96%, heart rate is 70. K, hemoglobin is stable at 10.4, platelets are within normal limits. Creatinine is improving gradually down to 1.7, electrolytes included sodium and potassium are within normal limits, sugar is running between 129-155. Magnesium is elevated at 2.5,. He has several bloo d culture that's positive for group D enterococcus faecalis, cardiology R following the case and the plan is for transesophageal echocardiogram tomorrow to rule out endocarditis 03/09/2019 Patient is ICU intubated and sedated, patient is planned to go for transesophageal echocardiogram today to rule out endocarditis in view of his persistent bacteremia/septicemia. Patient remains currently on Unasyn. Patient is slightly bradycardic at 57-60, he had low-grade temperature yesterday of 100.2, blood pressure 102/58, lap showing mild leukocytosis of 12.3 K, hemoglobin is stable. Creatinine is improving to 1.75. ABGs showed pH of 7.4, pCO2 42 which are within normal limits, pO2 is 120. Repeat blood cultures are pending, repeat chest x-ray from today showing fluid overload with interstitial edema with possible atelectasis. 03/10/2019 Patient remains in the ICU intubated and sedated, yesterday he had a LISSET which showing low ejection fraction around 20% with agitation note dictated on the aortic valve. Also patient noted to bleed easily given from subcutaneous injection site, currently is on subcu heparin to 8 which is lower to every 12 this morning, he is also on aspirin and Plavix, platelets are normal. We don't to check PT and INR and PTT today. Last night patient was started on Cardizem drip for better control of his blood pressure and heart rate and blood pressure. Patient is followed closely by cardiology and rectal care team. Prognosis is extremely poor 03/11/2019 Patient remains in the ICU, he is intubated and sedated. Patient failed weaning trials today by the pulmonary team. Patient is still tachycardic and he was started on Cardizem drip today, blood pressure 111/66. mild leukocytosis of 11.4 k, hemoglobin 10.2, sodium is 148, creatinine 1.8, compared to 1.7 yesterday. repeat blood cultures still shown enterococcus. the patient remains on unasyn and ceftriaxone currently with infectious disease followed the case closely. patient is following closely by cardiology and pulmonary/critical care team. prognosis remains guarded 03/12/2019 Patient remains in the ICU in critical condition, he is intubated and sedated however he is undergoing wound and a trial which has been failed previously. Blood pressure on the low side 66/38, wbc of 10.2 k, hemoglobin 10.1. his creatinine is stable at 1.7, high sodium on 148. Sugar is controlled at the r bo of 120-143. Repeat blood culture from 03/10 and 03/09 still pending which shows no growth so far. Repeat chest x-ray showed stable findings. His been followed closely by several consultants including cardiology, critical care and infectious disease recommended to continue with Unasyn and ceftriaxone for 6 weeks. Subjective 03/16/2019 Patient remains in the ICU. Is a status post extubation. Currently he is on oxygen nasal cannula 6 L/m with his oxygen saturation at 99%. Rest of vitals show a respiratory rate of 22-25, with tachycardia 108 07/11/2013, rest of vitals stable and patient is afebrile for the last few days. Labs showing resistant leukocytosis at 16.8 K, creatinine stable at 2.0. He has no chest pain, no headache. No change in bowel habits. He remains on Unasyn and ceftriaxone as per infectious disease recommendation, his Lasix was lowered to 40 mg IV daily, and he is off the amiodarone drip and currently is on amiodarone pills at 200 mg twice daily. Patient is able to eat and drink so D5W was stopped. Pain is controlled. 03/17/2019 Patient gives improving, he is awake and oriented, he knows why he is in the hospital. He feels generally weak and still short of breath. He is saturating 78-88% on room air, however patient is non-adherent to his oxygen therapy and he keeps taken off his nasal cannula. His saturation goes up to 97% on 4 L oxygen via high flow cannula. No chest pain. Slightly tachycardic. Blood pressure s table. Still have leukocytosis of 15.9 and creatinine stable at 2.1. Sugar control. Patient remains on Unasyn and ceftriaxone and he will need a PICC line and prolonged antibiotic course. ECF is recommended for patient upon discharge. Also is on Lasix 40 mg twice daily and amiodarone 200 mg twice daily basis metoprolol 75 mg 3 times daily. Pain controlled Discussed with the staff today 03/18/2019 Patient was transported to the select unit at the general medical floor. He is awake and alert, he still short of breath with decreased air entry in both sides, however he denies chest pain, his Kassy to tolerate his diet. His Vitas looks stable. Patient has persistent leukocytosis at 15.9 K, creatinine is 2.3. And sugars controlled. Patient remains on Unasyn and Rocephin per infectious disease team with cardiology and pulmonary team R following closely. Objective - Vital Signs Vital signs: Vital Signs Temp 97.8 F 03/18/19 04:00 Pulse 103 H 03/18/19 04:00 Resp 20 03/18/19 04:00 BP 130/78 03/18/19 04:00 Pulse Ox 92 L 03/18/19 04:00 Intake & Output 03/17/19 03/18/19 03/18/19 18:59 06:59 18:59 Intake Total 540 240 90 Output Total 764 500 Balance -224 -260 90 Weight 123.6 kg Intake: IV 370 Ampicillin-Sulbactam 3 gm 200 In Sodium Chloride 0.9% 100 ml @ 200 mls/hr IVPB Q6H DEANDRA Rx#:[id number] KVO 170 Intake, IV Titration 50 Amount cefTRIAXone 2 gm In 50 Sodium Chloride 0.9% 50 ml @ 100 mls/hr IVPB Q24HR DEANDRA Rx#:[id number] Oral 120 240 90 Output: Urine 764 500 Other: Voiding Method Indwelling Catheter Indwelling Catheter # Voids 0 # Bowel Movements 1 ABP, PAP, CO, CI - Last Documented Arterial Blood Pressure 105/93 - Exam -GENERAL: The patient is intubated and sedated HEENT: Pupils are round and equally reacting to light. EOMI. No scleral icterus. No conjunctival pallor. Normocephalic, atraumatic. No pharyngeal erythema. No thyromegaly. CARDIOVASCULAR: S1 and S2 present. No murmurs, rubs, or gallops. PULMONARY: Chest is clear to auscultation, no wheezing or crackles. ABDOMEN: Soft, nontender, nondistended, normoactive bowel sounds. No palpable organomegaly. MUSCULOSKELETAL: No joint swelling or deformity. EXTREMITIES: No cyanosis, clubbing, or pedal edema. NEUROLOGICAL: Gross neurological examination did not reveal any focal deficits. SKIN: No rashes. no petechiae. - Labs CBC & Chem 7: 03/18/19 05:55 03/18/19 05:55 Labs: Abnormal Lab Results - Last 24 Hours (Table) 03/17/19 03/17/19 03/17/19 Range/Units 11:29 16:43 17:58 WBC (3.8-10.6) k/uL RBC (4.30-5.90) m/uL Hgb (13.0-17.5) gm/dL Hct (39.0-53.0) % RDW (11.5-15.5) % Neutrophils # (Manual) (1.3-7.7) k/uL BUN (9-20) mg/dL Creatinine (0.66-1.25) mg/dL Glucose (74-99) mg/dL POC Glucose (mg/dL) 159 H 154 H 138 H (75-99) mg/dL 03/17/19 03/18/19 03/18/19 Range/Units 20:20 05:55 05:55 WBC 15.9 H (3.8-10.6) k/uL RBC 3.97 L (4.30-5.90) m/uL Hgb 11.4 L (13.0-17.5) gm/dL Hct 36.8 L (39.0-53.0) % RDW 15.9 H (11.5-15.5) % Neutrophils # (Manual) 13.36 H (1.3-7.7) k/uL BUN 77 H (9-20) mg/dL Creatinine 2.35 H (0.66-1.25) mg/dL Glucose 119 H (74-99) mg/dL POC Glucose (mg/dL) 191 H (75-99) mg/dL 03/18/19 Range/Units 06:27 WBC (3.8-10.6) k/uL RBC (4.30-5.90) m/uL Hgb (13.0-17.5) gm/dL Hct (39.0-53.0) % RDW (11.5-15.5) % Neutrophils # (Manual) (1.3-7.7) k/uL BUN (9-20) mg/dL Creatinine (0.66-1.25) mg/dL Glucose (74-99) mg/dL POC Glucose (mg/dL) 131 H (75-99) mg/dL Assessment and Plan Assessment: Cardiogenic and septic shock . Improved Acute on chronic systolic congestive heart failure with ejection fraction 20- 25%, on the top of history of severe ischemic cardiomyopathy. 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 Continue with antibiotics as per infectious disease recommendation, for 6 more weeks and currently he is on Unasyn and ceftriaxone, continue with oxygen and follow-up with pulmonary/critical team. Patient is on Lasix. . Follow-up cardiology recommendations. Follow-up WBC and creatinine.Labs and medication were reviewed. Continue same treatment. Continue with symptomatic treatment. Resume home medication. Monitor lytes and vitals. DVT and GI prophylaxis. Further recommendations of the clinical course of the patient DVT prophylaxis: Subcutaneous heparin GI Prophylaxis: Protonix Prognosis is guarded
[2019-03-18] MEDS: IPRATROPIUM 0.5 MG/2.5 ML NEBU INHALATION SCH ×4 (08:57→20:20)
[2019-03-18] MEDS: AMIODARONE 200 MG TAB PO SCH ×3 (09:27→21:52)
[2019-03-18] MEDS: ATORVASTATIN 40 MG TAB PO SCH (09:27)
[2019-03-18] MEDS: ASPIRIN 81 MG PO SCH (09:27)
[2019-03-18] MEDS: PANTOPRAZOLE 40 MG/10 ML VIAL IVP SCH (09:27)
[2019-03-18] MEDS: HEPARIN SODIUM,PORCINE 5,000 UNIT/ML 1 ML VIAL SQ SCH ×2 (09:27→21:51)
[2019-03-18] MEDS: METOPROLOL TARTRATE 50 MG TAB PO SCH ×3 (09:27→21:52)
[2019-03-18] MEDS: FUROSEMIDE 10 MG/ML 4 ML VIAL IV SCH ×2 (09:27→21:51)
--- NOTE | 2019-03-18 10:00 | PN ---
PROGRESS NOTE Mr. Tiwari is in atrial fib. Rate is better controlled. He has endocarditis and he has no bacteremia in the last one week. He is lethargic. Denies chest pain, stable overall. Heart rate has improved. Remains in atrial fib with paced beats. He is on antibiotics. I spoke to Dr. Nguyễn. I think he will benefit from a PICC line and transfer to an extended care facility. Vitals are stable. Blood pressure is in the 120 range. Heart rate is in the 100 range, atrial fib. JVD is evident. S1, S2 with ejection systolic murmur audible. Lungs reveal diminished air entry. Abdomen is distended. Lower extremities reveal diminished pulses. Prognosis remains guarded. Patient hopefully will have a PICC line and will be transferred to an extended care facility. MMODL / IJN: [id number] /
[2019-03-18 12:00] LABS: Glucose,Whole Blood 141 mg/dL (75-99)
--- NOTE | 2019-03-18 12:10 | P.PN ---
Subjective Progress Note Date: 03/18/19 Principal diagnosis: Acute hypoxic respiratory failure secondary to cardiogenic shock and septic shock, acute endocarditis This is a 71-year-old male patient with known history of ischemic cardiomyopathy along with known history of coronary artery disease and previous aortic valve replacement, AVR, and previous coronary artery bypass surgery, who presented to the hospital because of chest pain and non-STEMI. The patient has had previous catheterizations with stenting done in the distal left main as well as the proximal circumflex. He has a chronically totally occluded RCA. As mentioned, the patient was admitted with chest pain or shortness of breath and acute non-STEMI. The patient underwent another cardiac catheterization and the patient was found to have taken stent to the distal left mainstem to proximal circumflex, patent BELTRAN to LAD, chronic totally occluded RCA. Recommendations were mainly to maximize medical management. The patient was being treated for congestion heart failure. He was receiving Lasix drip and he was having ongoing orthopnea. He was taken yesterday to the [facility] [employer] [facility] and the patient was given biventricular pacing/AICD. Noted postop, the patient was extubated. He became short of breath and went into significant amount of respiratory distress and within 10 minutes she had to be reintubated. He was brought into the intensive care unit intubated on a mechanical ventilator. Initial blood gases showed a pH of 7.28 with a pCO2 of 51 and pO2 of 234. Necessary vent changes were done. The most recent blood gas showed a pH of 7.48 with a pCO2 of 28 and pO2 of 229. The morning vent settings include a tidal volume 400 with a rate of 18 and FiO2 of 40% with 5. The setting was adjusted based on the most recent blood gas. I noted that the patient is also on pressors and overnight the patient has required norepinephrine infusion and currently is running at 0.1 mcg/kg per minute. The patient is also on Lasix drip at 10 mg an hour. He is producing urine output. However, the patient has developed an acute kidney injury. Cr eatinine was normal at the time of admission on 02/27/2019 and there has been progressive rise in the creatinine which is up to 2.6 at this point in time. He was he was developing fevers with a temperature 11.6 on 03/04/2019. The patient has blood culture sent a blood culture came back positive for enterococcus group D. The patient was on cefazolin. IV Zosyn was added by the primary care team. This morning, the patient is sedated with propofol is currently running at 50 mics. His, comfortable. He is producing urine output. Her net fluid balance is -642 mL for yesterday. His cardiac rhythm is paced. His white cell count is 19.4. He is obviously septic condition with a positive blood culture. UA the time of admission was negative. He has a Diaz catheter in place. Abdomen is soft. His umbilical hernia. Surgical wound site over the left biventricular pacemaker is dry clean and intact. No significant orotracheal secretions. Chest x-ray from today shows cardiomegaly and lower lobe consolidation as the patient is a left lower lobe consolidation of the right upper lobe! The echocardiogram at shown an ejection fraction of 20-25%. There is moderate concentric left ventricular hypertrophy. There is severe global hypokinesis. No pericardial effusion. The peak gradient across the aortic valve was 35 mmHg. It is a normal functioning bioprosthetic valve. There is moderate mitral regurgitation. Mild pulmonary hypertension. on 03/07/2019 the patient remains sedated and intubated on mechanical ventilator. The patient is on propofol for sedation. The patient is also on a mechanical ventilator on assist control mode with a tidal volume of 000 and the rate of 18 with an FiO2 of 40% and PEEP of 5. The chest x-ray from today shows stable findings and there is left lower lobe consolidation/effusion. ET tube is in a good location. The left ear showed a pH of 7.44 with a pCO2 of 34 and pO2 of 131. Based on this, there is a component of respiratory alkalosis and I dropped a respiratory rate down to 14. The telephone was kept at 500 for now. I took this patient off the Lasix therapy yesterday as the patient's CVP was running low and the patient was also developing acute kidney injury. Today CVP is also low measuring as high as 4-5 millimeters of mercury. Based on that, the patient was started on oral Lasix set of IV Lasix for cardiology. He is prod ucing adequate amount of urine output. Creatinine is also improving and is down to 2.1. The patient is afebrile. The patient was seen by infectious disease. Antibiotic adjustments were done and the patient was placed on a combination of Unasyn and gentamicin. No clear indication for endocarditis. The patient has 3 positive blood culture that was positive for E faecalis, in the patient was si mplified back to Unasyn and gentamicin was discontinued as the patient was found to be having a Enterococcus faecalis resistant to gentamicin.. The patient is producing adequate amount of urine output. He is still on pressors and the present doses been weaned down to 0.07 micrograms per kilogram per minute of norepinephrine infusion. The patient will be started on enteral feeding for nutritional support. Cardiology is on the case. Cardiac rhythm remains paced. No significant electrolyte imbalance in the patient's white cell count is down to 10.5. 03/08/2019, the patient remains intubated on a mechanical ventilator. The patient remains hemodynamically unstable requiring pressors and the norepinephrine infusion is running at 0.08 mcg/kg per minute. He is also on Prinivil at 40 mics per KG. The patient a mechanical ventilator on assist control mode with a tidal volume of 500 and rate of 18 with an FiO2 of 40% and a PEEP of 5. Chest x-ray is unchanged compared to yesterday and there are some white pulmonary vessel congestion. The patient is producing 25 mL of urine output on an hourly basis. Net fluid balance is positive to 11 mL over the past 24 hours. He is currently on oral Lasix. He is also on norepinephrine infusion. He is on enteral feeding for nutritional support. He is receiving before for sedation. Note that all of the blood cultures came back positive for Enterococcus faecalis. The patient remains on IV Unasyn. Follow-up cultures were obtained to make sure there is no ongoing bacteremia. There is a high likely what that it there may be a component of infective endocarditis. The patient will need a LISSET to evaluate this further. His cardiac rhythm is paced. The fibrillator pocket is clean and intact at this point in time. As for his continued kidney injury, the patient's creatinine is improving and the creatinine is down to 1.72. The white cell count is also down to 10.5 and the patient is responding to IV Unasyn for now. Reevaluated today on 03/09/2019, patient remains on mechanical ventilation, he is still on norepinephrine at 0.05 mcg/kg/m, still on propofol at 50 mcg/kg/m. He is on mechanical ventilation, assist control rate of 18, FiO2 is 40%, PEEP of 5. Tidal volume is 500. Transesophageal echocardiogram is suspicious for vegetations involving the aortic bioprosthetic valve there was also evidence of thickened mitral valve leaflets with moderate mitral regurgitation. His LV function was noted to be impaired ejection fraction of 20%. ABG this morning showed a pO2 of 120 pCO2 of 42 pH of 7.42 11 lites are normal renal profile is abnormal with BUN of 42 creatinine of 1.75 WBC count is 12.3 hemoglobin is 10.2. Chest x-ray is suspicious for mild interstitial edema and small bilateral pleural effusions. There is also some retrocardiac atelectasis. Patient is sedated, on mechanical ventilation, I have no plans to wean the patient today since LISSET was scheduled to be done shortly after I evaluated the patient. Patient was reevaluated today on 03/10/2019, remains on mechanical ventilation, his ventilator settings are assist control rate of 14 FiO2 is 40% PEEP is 5 tidal volume is 500. Patient is on Cardizem drip as per cardiology 5 mg per hour, his also on metoprolol, and he is on norepinephrine at 0.05 mcg/kg/m. Propofol is 25 mcg/kg/m. Chest x-ray showed cardiomegaly and prominent pulmonary vasculature with minimal basilar atelectasis. ABG showed a pO2 of 117 pCO2 of 43 pH of 7.45. WBC count is 14.8 hemoglobin is 10.5. Electrolytes are relatively normal. Renal profile showed a BUN of 42 creatinine of 1.70. Patient remains sedated, however I plan to hold his sedation today, and hopefully assess mental status and decide whether we can proceed with any further weaning trials. Family is at bedside and they were updated on his condition and on the fact that he has endocarditis. Antibiotics were addressed by Dr. Nguyễn, patient is now on Unasyn. He also remains on Rocephin. Reevaluated today on 03/11/2019, remains in the ICU on mechanical ventilation. His ventilator settings are assist control rate of 14, tidal volume is 500 FiO2 of 35% PEEP is 5. Remains on propofol at 30 mcg/kg/m, he is off pressors. ABG this morning showed a pO2 of 103 pCO2 of 39 pH of 7.50. Electrolytes are normal however his BUN is 51 creatinine is 1.84. WBC count is 11.4 hemoglobin is 10.2. Patient remains on nutritional support via enteral feeding. Remains on antibiotics for his underlying endocarditis as per infectious disease. Yesterday the patient was given a sedation interruption, and a trial of weaning, however he was extremely agitated, restless, and could not go on to wean or extubated the patient. This would be reattempted again today. Reevaluated today in the ICU on 03/12/2019, patient remains on mechanical ventilation, his ventilator settings are tidal volume of 500 assist control rate of 14 FiO2 35% PEEP of 5. Patient remains on propofol, presently off norepinephrine, patient was given a weaning trial yesterday, however he became extremely tachycardic, and restless agitated. Today I plan to wean the patient slowly on Precedex to be started after stopping propofol. Patient will be awakened and will be given definitely a weaning trial today. Depending on how he does on pressure support and CPAP, may or may not proceed to full extubation. Chest x-ray is showing mild congestive changes. ABG this morning showed a pO2 of 77 pCO2 of 45 pH of 7.48 electrolytes showed elevated sodium of 148 BUN is 61 creatinine 1.78. Bicarb is 34 WBC count is 10.2 hemoglobin is 10.1. Patient remains on antibiotics, not requiring pressors at this point, has been intermittently on and off norepinephrine Reevaluated today on 03/13/2019, patient was extubated from mechanical venti lation yesterday, patient is presently on high flow nasal cannula, O2 saturation is in the mid 90s, tolerated the extubation well since yesterday. Chest x-ray continues to show evidence of mild congestive heart failure. However the patient has elevated sodium today, it is 153, and I have switched his IV fluid to D5W, will hold on the Lasix for now, and he will receive D5W at 50 mL per hour. Patient received Lasix earlier today by nephrology. Patient remains on antibiotics for his endocarditis. And he is hemodynamically stable at present. Reevaluated today on 03/14/2019, patient remains off mechanical ventilation, on high flow nasal cannula, O2 saturation is excellent. Chest x-ray showed mild interstitial edema. Patient continues to have intermittent episodes of confusion and disorientation. CT of the head is negative for septic emboli involving the brain. Sodium remains a bit elevated, and the process of correcting his sodium with D5W. Lasix is still on hold. BUN is 69 creatinine is 1.99 sodium today is 150. is at bedside, and she was updated on his condition, and explained to her that the patient may have metabolic encephalopathy. Related to his hypernatremia and sepsis with bacteremia. Patient was reevaluated today on 03/15/2019, seems to be doing fairly well, remains off mechanical ventilation,he is steadily improving, Denies any specific complaints,his mental status seems to be intermittently waxing and waning. But today he seems to be more appropriate.chest x-ray continues to show evidence of interstitial edema/CHF, his electrolytes are improving sodium is down to 146. BUN is 75 creatinine is 2.19. ABG last night showed a pO2 of 61 pCO2 48 pH of 7.43, hence his FiO2 was increased and he is presently on 6 L nasal cannula. On 03/17/2019 patient seen in follow-up in the intensive care unit, he is awake and alert, in no acute distress, he is currently on room air, with a pulse ox of 92%, maintenance IV fluids are present and normal saline at a rate of 10 ML per hour, denies any worsening dyspnea, lung sounds reveal a few scattered wheezes, no rhonchi, no rales. No altered mentation, no fever or chills, vital signs are stable. Follow up blood cultures are negative from 03/09/2019, and 03/10/2019. Patient is a combination of Unasyn and Rocephin for antibiotic coverage. No acute events overnight, today's labs have been reviewed, showing blood cell count of 15.9, hemoglobin of 11.1, electrolytes within normal limits, renal profile is stable, with BUN of 75 and creatinine of 2.10. The patient is seen today 03/18/2018 in follow-up on the selective care unit. He is currently resting comfortably in bed. Awake and alert in no acute distress. Maintaining good O2 saturations up to 100% on 2 L/m per nasal cannula. He's been afebrile. Hemodynamically stable. Follow-up blood cultures reveal no growth. White count 15.9. Hemoglobin 11.4. Creatinine 2.35. He remains on ceftriaxone and Unasyn. Objective - Vital Signs Vital signs: Vital Signs Temp 97.6 F 03/18/19 12:00 Pulse 85 03/18/19 12:01 Resp 20 03/18/19 12:00 BP 113/77 03/18/19 12:00 Pulse Ox 98 03/18/19 12:00 Intake & Output 03/17/19 03/18/19 03/18/19 18:59 06:59 18:59 Intake Total 540 240 90 Output Total 764 500 Balance -224 -260 90 Weight 123.6 kg Intake: IV 370 Ampicillin-Sulbactam 3 gm 200 In Sodium Chloride 0.9% 100 ml @ 200 mls/hr IVPB Q6H DEANDRA Rx#:[id number] KVO 170 Intake, IV Titration 50 Amount cefTRIAXone 2 gm In 50 Sodium Chloride 0.9% 50 ml @ 100 mls/hr IVPB Q24HR DEANDRA Rx#:[id number] Oral 120 240 90 Output: Urine 764 500 Other: Voiding Method Indwelling Catheter Indwelling Catheter # Voids 0 # Bowel Movements 1 ABP, PAP, CO, CI - Last Documented Arterial Blood Pressure 105/93 - Exam GENERAL EXAM: Alert, pleasant, 73-year-old obese male patient, on 2 L/m per nasal cannula, comfortable in no apparent distress. HEAD: Normocephalic/atraumatic. EYES: Normal reaction of pupils, equal size. Conjunctiva pink, sclera white. NOSE: Clear with pink turbinates. THROAT: No erythema or exudates. NECK: No masses, no JVD, no thyroid enlargement, no adenopathy. CHEST: No chest wall deformity. Symmetrical expansion. LUNGS: Equal air entry with a few scattered rhonchi, no rales CVS: Regular rate and rhythm, normal S1 and S2, no gallops, no murmurs, no rubs ABDOMEN: Soft, obese, nontender. No hepatosplenomegaly, normal bowel sounds, no guarding or rigidity. EXTREMITIES: No clubbing, no edema, no cyanosis, 2+ pulses and upper and lower extremities. MUSCULOSKELETAL: Muscle strength and tone normal. SPINE: No scoliosis or deformity SKIN: No rashes CENTRAL NERVOUS SYSTEM: No focal deficits, tone is normal in all 4 extremities. PSYCHIATRIC: Alert and oriented -3. Appropriate affect. Intact judgment and insight. - Labs CBC & Chem 7: 03/18/19 05:55 03/18/19 05:55 Labs: Abnormal Lab Results - Last 24 Hours (Table) 03/17/19 03/17/19 03/17/19 Range/Units 16:43 17:58 20:20 WBC (3.8-10.6) k/uL RBC (4.30-5.90) m/uL Hgb (13.0-17.5) gm/dL Hct (39.0-53.0) % RDW (11.5-15.5) % Neutrophils # (Manual) (1.3-7.7) k/uL BUN (9-20) mg/dL Creatinine (0.66-1.25) mg/dL Glucose (74-99) mg/dL POC Glucose (mg/dL) 154 H 138 H 191 H (75-99) mg/dL 03/18/19 03/18/19 03/18/19 Range/Units 05:55 05:55 06:27 WBC 15.9 H (3.8-10.6) k/uL RBC 3.97 L (4.30-5.90) m/uL Hgb 11.4 L (13.0-17.5) gm/dL Hct 36.8 L (39.0-53.0) % RDW 15.9 H (11.5-15.5) % Neutrophils # (Manual) 13.36 H (1.3-7.7) k/uL BUN 77 H (9-20) mg/dL Creatinine 2.35 H (0.66-1.25) mg/dL Glucose 119 H (74-99) mg/dL POC Glucose (mg/dL) 131 H (75-99) mg/dL 03/18/19 Range/Units 11:52 WBC (3.8-10.6) k/uL RBC (4.30-5.90) m/uL Hgb (13.0-17.5) gm/dL Hct (39.0-53.0) % RDW (11.5-15.5) % Neutrophils # (Manual) (1.3-7.7) k/uL BUN (9-20) mg/dL Creatinine (0.66-1.25) mg/dL Glucose (74-99) mg/dL POC Glucose (mg/dL) 141 H (75-99) mg/dL Assessment and Plan Assessment: Assessment: 1 acute hypoxic respiratory failure secondary to cardiogenic shock and septic shock. Patient was extubated successfully on 03/12/2019. 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 3 severe LV dysfunction and cardiomyopathy, ischemic in nature, ejection fraction of 20-25% post-insertion of AICD. 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 6 septic shock secondary to enterococcal infection 7 acute kidney injury secondary to sepsis, ATN, and possibly contrast nephropathy 8 history of underlying COPD, hypertension, hyperlipidemia, obesity, and generalized anxiety disorder. 9 hypernatremia secondary to free water depletion, and diuretics, hence we'll change the IV fluid to D5W, and hydrate the patient cautiously with D5W, and liberalize free water intake 10 acute metabolic encephalopathy secondary to electrolytes imbalance, hypernatremia, and sepsis as well as bacteremia. Plan: The patient was seen and evaluated by Dr. Mehta. He is improved from the pulmonary critical care standpoint. We'll continue with the current treatment plan. Continue to increase his activity as tolerated. Continue to encourage cough and deep breathing exercises. We'll continue to follow and make further recommendations based on his clinical status. I, the cosigning physician, performed a history & physical examination of the patient. Lungs sounds with few scattered rhonchi. Maintaining good O2 saturations in the 90s on 2 L/m per nasal cannula. I discussed the assessment and plan of care with my nurse practitioner, Lindsey Juárez. I attest to the above note as dictated by her.
[2019-03-18 17:16] LABS: Glucose,Whole Blood 137 mg/dL (75-99)
--- NOTE | 2019-03-18 19:49 | PN ---
PROGRESS NOTE Patient is seen for followup for acute kidney injury. He is currently seen on the step- down unit. He has been transferred out of the ICU. Patient has been eating. He denies any significant complaints. On examination this morning, blood pressure was 118/75, heart rate of 80 per minute. Patient is afebrile. EXAMINATION OF THE HEART: S1 and S2. EXAMINATION OF LUNGS: Bilateral breath sounds are heard. Decreased breath sounds at bases. ABDOMEN: Soft, non-tender. Examination of lower extremities shows edema 1+ bilaterally. 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 Labs show sodium 145, potassium 3.9, chloride 107, BUN 77, creatinine 2.35, hemoglobin 11.4. ASSESSMENT: 1. Acute kidney injury, acute tubular necrosis, nonoliguric. Serum creatinine slightly higher than for the last 2 to 3 days. Lasix is currently at 40 mg IV b.i.d. Patient's weight has gone up. I will continue with the current dose of Lasix unless renal function is worse tomorrow; then we can decrease it back to 40 mg IV daily. 2. Sepsis with endocarditis and Enterococcus faecalis bacteremia. Repeat blood cultures negative. Maintained on antibiotics, ceftriaxone and Unasyn. 3. Atrial fibrillation with controlled ventricular response. 4. Status post pacemaker placement this admission. 5. Hypotension from sepsis, now improved. 6. 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 7. Severe cardiomyopathy; ejection fraction 20% to 25%. PLAN: Continue with current dose of Lasix and consider decreasing Lasix in a.m., depending on the renal function. MMODL / IJN: [id number] /
[2019-03-18 20:46] LABS: Glucose,Whole Blood 135 mg/dL (75-99)
--- NOTE | 2019-03-18 21:38 | P.PN ---
Subjective Progress Note Date: 03/18/19 This is a 73-year-old male with known history of ischemic cardiomyopathy along with known history of coronary artery disease and previous aortic valve replacement, AVR, and previous coronary artery bypass surgery. He presented on March 01 because of chest pain and found to have non-STEMI. He underwent cardiac catheterization with Dr. Juarez on 03/03 and the patient was found to have patent stent to the distal left mainstem to proximal circumflex, patent BELTRAN to LAD, chronic totally occluded RCA. Recommendations were mainly to maximize medical management. Patient was apparently having runs of V. tach and a consult was added for Dr. Ho. Patient subsequently underwent a biventricular ICD implantation on March 05. Patient was intubated prior to the procedure as apparently he is unable to lay flat for this. He received 700 mL of fluid during procedure. He was extubated last evening for only 3 minutes and was re- intubated. He was given Lasix 40 mg IV push followed by Lasix drip at 10 mg per hour. The Lasix to was discontinued this morning. Patient remains intubated, on sedation and on levo fed. His chest x-ray this morning reveals a right upper lobe pneumonia and probable heart failure. Patient has been running fevers up to 101.6 on evening of 925. White count 20.6, renal function is worsening with a BUN 45 and creatinine 2.6. Urinalysis was clear with nitrate and l eukoesterase negative. Urine output has been on the lower side running about 50 mL per hour or less. Blood culture from 03/04 is group D enterococcus and thus this consult was requested. 03/09/2019 the patient had evidence of isolated enterococcal bacteremia. The case was discussed with cardiology and a LISSET has been performed today which is verified evidence of a vegetation on the bioprosthetic aortic valve. There is no evidence of any ring abscess or of extensive valvular disease. The patient has shown some improvement in that his fever is improved and his leukocytosis is improving. 03/10/2019 patient remains intubated sedated and mechanically ventilated. His oxygen requirements have decreased in with increased dose of beta russell treatment started as some further improvement of his rate and dysrhythmia. He has been seen by cardiovascular surgeon. 03/11/2019 patient had weaning trial not successful to be retried tomorrow. Off of vasopressor therapy and stable. 03/12/2019 patient has had improvement of his status. He is less sedated. He is on CPAP and doing well likely be extubated when he is a bit more awake. 03/13/2019 the patient is extubated sitting upright feeling considerably better able to eat some nutrition. Not having much chest pain shortness of breath is improved. 03/15/2019 Patient has had some further improvement. He is less short of breath. He is without significant discomforts. Able to eat without difficulties. 03/16/2019 reveals the patient has some further improvement. Is more awake and interactive 03/18/2019 the patient has had some further improvement of his status in that he is with less shortness of breath, has required no further vasopressor therapy is responded somewhat well to current interventions. Negative blood cultures have been verified. Transfer text Objective - Vital Signs Vital signs: Vital Signs Temp 98.1 F 03/18/19 15:41 Pulse 88 03/18/19 20:32 Resp 20 03/18/19 16:00 BP 132/80 03/18/19 15:41 Pulse Ox 97 03/18/19 20:22 Intake & Output 03/18/19 03/18/19 03/19/19 06:59 18:59 06:59 Intake Total 240 210 120 Output Total 500 1200 Balance -260 -990 120 Weight 123.6 kg Intake: Oral 240 210 120 Output: Urine 500 1200 Other: Voiding Method Indwelling Catheter Indwelling Catheter # Voids 0 # Bowel Movements 1 ABP, PAP, CO, CI - Last Documented Arterial Blood Pressure 105/93 - Exam Gen: This is a 73-year-old male. He has tolerated extubation well. Not having much shortness of breath. On the exam he has no tenderness over the pacemaker and does not recall it even being there. HEENT: Head is atraumatic, normocephalic. Pupils equal, round. Sclerae is anicteric. Conjunctiva pink. Oral mucous membranes are moist. Appears patient is edentulous. ET and gastric tube are in place orally. NECK: Supple. No JVD. No lymphadenopathy. No thyromegaly. LUNGS: Symmetrical air entry with few expiratory wheezes basilar crackles or bronchial sounds HEART: Regular rate and rhythm. No murmur. There is a dressing over the AICD, left upper chest wall, no drainage. No significant edema around the area. ABDOMEN: Soft. Bowel sounds are present. No masses. No tenderness. No redness under her abdominal fold. Diaz catheter draining clear dmitry urine. EXTREMITIES: Trace bilateral pedal edema. No wounds, no cellulitis noted. Dorsalis pedis 1+ bilaterally. NEUROLOGICAL: Patient is no longer sedated and more interactive. He over somewhat of a poor historian but was able to move upper and lower extremities. - Labs CBC & Chem 7: 03/18/19 05:55 03/18/19 05:55 Labs: Abnormal Lab Results - Last 24 Hours (Table) 03/18/19 03/18/19 03/18/19 Range/Units 05:55 05:55 06:27 WBC 15.9 H (3.8-10.6) k/uL RBC 3.97 L (4.30-5.90) m/uL Hgb 11.4 L (13.0-17.5) gm/dL Hct 36.8 L (39.0-53.0) % RDW 15.9 H (11.5-15.5) % Neutrophils # (Manual) 13.36 H (1.3-7.7) k/uL BUN 77 H (9-20) mg/dL Creatinine 2.35 H (0.66-1.25) mg/dL Glucose 119 H (74-99) mg/dL POC Glucose (mg/dL) 131 H (75-99) mg/dL 03/18/19 03/18/19 03/18/19 Range/Units 11:52 17:01 20:45 WBC (3.8-10.6) k/uL RBC (4.30-5.90) m/uL Hgb (13.0-17.5) gm/dL Hct (39.0-53.0) % RDW (11.5-15.5) % Neutrophils # (Manual) (1.3-7.7) k/uL BUN (9-20) mg/dL Creatinine (0.66-1.25) mg/dL Glucose (74-99) mg/dL POC Glucose (mg/dL) 141 H 137 H 135 H (75-99) mg/dL Laboratory Results WBC 15.9 k/uL (3.8-10.6) H 03/18/19 05:55 RBC 3.97 m/uL (4.30-5.90) L 03/18/19 05:55 Hgb 11.4 gm/dL (13.0-17.5) L 03/18/19 05:55 Hct 36.8 % (39.0-53.0) L 03/18/19 05:55 MCV 92.9 fL (80.0-100.0) 03/18/19 05:55 MCH 28.8 pg (25.0-35.0) 03/18/19 05:55 MCHC 31.0 g/dL (31.0-37.0) 03/18/19 05:55 RDW 15.9 % (11.5-15.5) H 03/18/19 05:55 Plt Count 317 k/uL (150-450) 03/18/19 05:55 Neutrophils % 82 % 03/17/19 05:41 Neutrophils % (Manual) 84 % 03/18/19 05:55 Lymphocytes % 10 % 03/17/19 05:41 Lymphocytes % (Manual) 13 % 03/18/19 05:55 Monocytes % 5 % 03/17/19 05:41 Monocytes % (Manual) 3 % 03/18/19 05:55 Eosinophils % 1 % 03/17/19 05:41 Basophils % 1 % 03/17/19 05:41 Neutrophils # 13.1 k/uL (1.3-7.7) H 03/17/19 05:41 Neutrophils # (Manual) 13.36 k/uL (1.3-7.7) H 03/18/19 05:55 Lymphocytes # 1.5 k/uL (1.0-4.8) 03/17/19 05:41 Lymphocytes # (Manual) 2.07 k/uL (1.0-4.8) 03/18/19 05:55 Monocytes # 0.8 k/uL (0-1.0) 03/17/19 05:41 Monocytes # (Manual) 0.48 k/uL (0-1.0) 03/18/19 05:55 Eosinophils # 0.2 k/uL (0-0.7) 03/17/19 05:41 Basophils # 0.1 k/uL (0-0.2) 03/17/19 05:41 Nucleated RBCs 0 /100 WBC (0-0) 03/18/19 05:55 Manual Slide Review Performed 03/18/19 05:55 Polychromasia Present 03/18/19 05:55 Hypochromasia Moderate 03/18/19 05:55 Anisocytosis Slight 03/01/19 15:07 Anisocytosis (manual) Present 03/18/19 05:55 PT 11.1 sec (9.0-12.0) 03/10/19 10:35 INR 1.0 (<1.2) 03/10/19 10:35 APTT 53.7 sec (22.0-30.0) H 03/02/19 21:57 Sample Site rbach 03/15/19 01:00 ABG pH 7.43 (7.35-7.45) 03/15/19 01:00 ABG pCO2 48 mmHg (35-45) H 03/15/19 01:00 ABG pO2 61 mmHg (83-108) L 03/15/19 01:00 ABG HCO3 32 mmol/L (21-25) H 03/15/19 01:00 ABG Total CO2 33 mmol/L (19-24) H 03/15/19 01:00 ABG O2 Saturation 88.9 % (94-97) L 03/15/19 01:00 ABG Base Excess 7.3 mmol/L 03/15/19 01:00 Manuel Test Yes 03/15/19 01:00 FiO2 36 % 03/15/19 01:00 Sodium 145 mmol/L (137-145) 03/18/19 05:55 Potassium 3.9 mmol/L (3.5-5.1) 03/18/19 05:55 Chloride 107 mmol/L (98-107) 03/18/19 05:55 Carbon Dioxide 26 mmol/L (22-30) 03/18/19 05:55 Anion Gap 12 mmol/L 03/18/19 05:55 BUN 77 mg/dL (9-20) H 03/18/19 05:55 Creatinine 2.35 mg/dL (0.66-1.25) H 03/18/19 05:55 Est GFR (CKD-EPI)AfAm 31 (>60 ml/min/1.73 sqM) 03/18/19 05:55 Est GFR (CKD-EPI)NonAf 27 (>60 ml/min/1.73 sqM) 03/18/19 05:55 Glucose 119 mg/dL (74-99) H 03/18/19 05:55 POC Glucose (mg/dL) 135 mg/dL (75-99) H 03/18/19 20:45 POC Glu Shirt [place]ander [place] 03/18/19 20:45 Plasma Lactic Acid [place] 1.2 mmol/L (0.7-2.0) 03/06/19 10:10 Calcium 8.8 mg/dL (8.4-10.2) 03/18/19 05:55 Phosphorus 3.8 mg/dL (2.5-4.5) 03/09/19 04:30 Magnesium 2.7 mg/dL (1.6-2.3) H 03/14/19 05:35 Total Bilirubin 0.9 mg/dL (0.2-1.3) 03/01/19 15:07 AST 116 U/L (17-59) H 03/13/19 05:00 ALT 103 U/L (21-72) H 03/13/19 05:00 Alkaline Phosphatase 166 U/L (38-126) H 03/13/19 05:00 Troponin I 1.080 ng/mL (0.000-0.034) H* 03/02/19 04:09 NT-Pro-B Natriuret Pep 57920 pg/mL 03/01/19 15:07 Total Protein 6.8 g/dL (6.3-8.2) 03/01/19 15:07 Albumin 3.4 g/dL (3.5-5.0) L 03/01/19 15:07 Triglycerides 105 mg/dL (<150) 03/02/19 04:09 Cholesterol 188 mg/dL (<200) 03/02/19 04:09 LDL Cholesterol, Calc 148 mg/dL (0-99) H 03/02/19 04:09 HDL Cholesterol 19 mg/dL (40-60) L 03/02/19 04:09 TSH 3.570 mIU/L (0.465-4.680) 03/04/19 02:17 Urine Color Yellow 03/04/19 23:09 Urine Appearance Clear (Clear) 03/04/19 23:09 Urine pH 5.0 (5.0-8.0) 03/04/19 23:09 Ur Specific [place] 1.013 (1.001-1.035) 03/04/19 23:09 Urine Protein Trace (Negative) H 03/04/19 23:09 Urine Glucose (UA) Negative (Negative) 03/04/19 23:09 Urine Ketones Negative (Negative) 03/04/19 23:09 Urine Blood Negative (Negative) 03/04/19 23:09 Urine Nitrite Negative (Negative) 03/04/19 23:09 Urine Bilirubin Negative (Negative) 03/04/19 23:09 Urine Urobilinogen <2.0 mg/dL (<2.0) 03/04/19 23:09 Ur Leukocyte Esterase Negative (Negative) 03/04/19 23:09 Microbiology 03/10/19 12:00 Blood Blood Culture - Final No Growth after 144 hours 03/09/19 09:44 Blood Blood Culture - Final No Growth after 144 hours 03/08/19 08:46 Blood Blood Culture Gram Stain - Final 03/08/19 08:46 Blood Blood Culture - Final Enterococcus faecalis 03/08/19 07:30 Blood Blood Culture Gram Stain - Final 03/08/19 07:30 Blood Blood Culture - Final Enterococcus faecalis 03/04/19 18:31 Blood Blood Culture Gram Stain - Final 03/04/19 18:31 Blood Blood Culture - Final Enterococcus faecalis 03/06/19 09:55 Blood Blood Culture Gram Stain - Final 03/06/19 09:55 Blood Blood Culture - Final Enterococcus faecalis 03/06/19 10:10 Blood Blood Culture Gram Stain - Final 03/06/19 10:10 Blood Blood Culture - Final Enterococcus faecalis 03/06/19 02:42 Blood Blood Culture Gram Stain - Final 03/06/19 02:42 Blood Blood Culture - Final Enterococcus faecalis 03/08/19 07:30 Blood Blood Culture - Final 03/08/19 08:46 Blood Blood Culture - Final 03/06/19 11:12 Sputum Gram Stain - Final 03/06/19 11:12 Sputum Sputum Culture - Final 03/05/19 17:44 Blood Blood Culture Gram Stain - Final 03/05/19 17:44 Blood Blood Culture - Final Enterococcus faecalis 03/06/19 10:10 Blood Blood Culture - Final 03/06/19 09:55 Blood Blood Culture - Final 03/05/19 17:44 Blood Blood Culture - Final 03/06/19 02:42 Blood Blood Culture - Final 03/04/19 18:31 Blood Blood Culture - Final Assessment and Plan (1) Acute on chronic systolic CHF (congestive heart failure) Current Visit: Yes Status: Acute Code(s): I50.23 - ACUTE ON CHRONIC SYSTOLIC (CONGESTIVE) HEART FAILURE SNOMED Code(s): 224820461 (2) Cardiomyopathy Current Visit: Yes Status: Acute Code(s): I42.9 - CARDIOMYOPATHY, UNSPECIFIED SNOMED Code(s): 98846269 (3) Prosthetic valve endocarditis Narrative/Plan: 73-year-old gentleman with aortic valve replacement and prior CABG presented to Hospital and some he in worsening of his ischemic cardiomyopathy. He underwent biventricular ICD implantable pacemaker March 05. The he developed a fever and there are now positive blood cultures. The laboratory has identified enterococcus in the blood cultures. There is no specific other site of infection at this time other than the bacteremia. With aortic valve replacement concerns underlying endocarditis. Consequently antimicrobial therapy is transitioned to ampicillin sulbactam and gentamicin in synergistic dosing dosed by the pharmacy. Aware of his renal insufficiency however until bacteremia clears and there is a definitive alternative cause of the bacteremia would require gentamicin therapy for synergy. Follow blood cultures are requested. The patient has had central line and A-line just placed by the honing machine set up operator. He is receiving fluid resuscitation and vasopressor therapy. 03/09/2019 the patient has had a LISSET performed today which verifies evidence of vegetation on the bioprosthetic aortic valve. The patient has many positive blood cultures. Enterococcus has been isolated. The patient has evidence of gentamicin synergy resistance. Gentamicin was discontinued. With this finding ceftriaxone is added to the Unasyn in attempts for synergy. Follow blood cultures will be obtained. The patient's renal failure is improving. He seemingly more stable. Hopefully he will now start to have evid ence of clearance of his bacteremia with the synergistic combination. 03/10/2019 Patient remains intubated sedated and ventilated however is decreased therapy. The patient's itching with Unasyn and Rocephin for the enterococcus endocarditis verified with a LISSET yesterday. Cardiology is following. 03/11/2019 patient has improved and will have further weaning trial tomorrow. The blood cultures are now negative over 48 hours, having a good response to antibiotic therapy. The synergistic therapy is now showing response and will continue for 6 weeks. 03/12/2019 the patient is having some improvement will likely be extubated today. Once the patient has consistently negative blood cultures IV access is required that he may receive his 6 weeks of intravenous antibiotic therapy with Unasyn and Rocephin, there are 2 negative blood cultures at this time. 03/13/2019 the patient has had further improvement of his status. He has now been extubated and doing well on nasal cannula oxygen. Not having significant hypotension. He is showing some ongoing improvement. 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 Likely have IV access placed soon and arrangements for the 6 weeks of ampicillin sulbactam and daptomycin which he is tolerating well. 03/15/2019 patient has had some further improvement of his status. Sitting upright able to eat some breakfast. Shortness of breath is improved. He is still with significant generalized weakness. Appears likely he will be in need of rehabilitation at discharge. 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 He was to have follow-up LISSET arranged in the future. 03/16/2019 reveals the patient to have some further improvement of his status. Showing some response to the current antibiotic therapy of Unasyn and Rocephin. Blood cultures have now cleared and remained with evidence of negative blood cultures. IV access and plans for outpatient intravenous antibiotic therapy are in process. Rehab placement is likely needed. The patient is profoundly weak and has a very complex need of multiple antibiotics which would not be feasible for home. 03/18/2019 the patient has had some further improvement, nursing staff relates that he is eating relatively well. His mentation is still somewhat poor but he is arousable, is able to answer questions although short answers and sometimes with poor quality answer. However he is moving upper and lower extremities upon command. He does have significant generalized weakness. The blood cultures are now negative and have been he has been cleared for PICC line placement by cardiology. Orders are placed today. Hopefully he will transition to the extended care facility to complete his 6 weeks of ampicillin sulbactam with Rocephin. Weekly blood work is requested. He will follow-up in the office in 3 and 6 weeks. Current Visit: Yes Status: Acute Code(s): T82.6XXA - INFECT/INFLM REACTION DUE TO CARDIAC VALVE PROSTHESIS, INIT; I38 - ENDOCARDITIS, VALVE UNSPECIFIED SNOMED Code(s): 838841366
--- NOTE | 2019-03-18 21:40 | P.CNNES ---
History of Present Illness Consult date: 03/18/19 Reason for Consult: Altered mental status Chief complaint: Altered mental status History of Present Illness: HISTORY OF PRESENT ILLNESS: Thank you for allowing me to evaluate Mr. Piero Tiwari. Mr. Tiwari is a 73-year-old R-handed man with past medical history of asthma, coronary artery disease, chest pain, heart failure, COPD, hyperlipidemia, hypertension, osteoarthritis, gout, SBO, presents in the plan program on 03/01/2019 for shortness of breath and chest pain, found with non-stemi, underwent cardiac cath on 03/03/2019 and found to have a totally occluded RCA. Recommendations to maximize medical management. Patient was having runs of V. 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 PAST MEDICAL HISTORY: asthma, coronary artery disease, chest pain, heart failure, COPD, hyperlipidemia, hypertension, osteoarthritis, gout, SBO PAST SURGICAL HISTORY: Appendectomy, cardiac valve replacement, cholecystectomy, coronary bypass, heart catheterization with stent, hernia repair Current MEDICATIONS: Plavix, Atrovent, Unasyn, aspirin, ceftriaxone, amiodarone, Lasix, metoprolol ALLERGIES: Levofloxacin SOCIAL HISTORY: Former smoker FAMILY HISTORY: Father with NE at age 72, had a CABG. Mother with NE, also had a CABG. REVIEW OF SYSTEMS: The 14 systems are reviewed and no additional points are identified compared to the review of systems documented history and physical PHYSICAL EXAMINATION: VITAL SIGNS: T 97.6 HR 81 RR 20 BP 113/77 O2 sat 98% on 2L of O2 via NC GEN.: NAD, grumpy but mostly cooperative (friend Peyman at bedside states that patient has always been grumpy HEENT: NCAT, sclera without icterus NECK: Supple SKIN AND EXTREMITIES: Warm to touch, no edema NEURO: MENTAL STATUS: Patient alert and oriented to self, place. Says it's "[id number]" and cannot name president. Mumbles but able to name and repeat, following most commands readily. No right and left disorientation, neglect. CRANIAL NERVES II THROUGH XII: II: Pupils are equal and reactive to light symmetrically. Visual nolen are intact. III, IV, : No ptosis. Extraocular movements full. No nystagmus. V: Facial sensation intact from V1-3. VII. No clear facial asymmetry. XII: Tongue midline without fasciculation or atrophy. MOTOR: Able to move b/l UE against gravity. Although he's R-handed, he uses his L hand to grab cups. Peyman, his friend, states that he's had a bad R shoulder and it's been difficult to move it fully. Patient able to wiggle his toes but with difficulty bending his knees. SENSORY: Grossly intact to light touch in all 4 extremities. REFLEXES: 2+ throughout. Toes are mute. COORDINATION/GAIT: Deferred DIAGNOSTIC TESTING: LABORATORY: WBC 15.9 hemoglobin 11.4 platelet 317 sodium 145 potassium 3.9 chloride 107 bicarb 26 BUN 77 creatinine 2.35 (on admission, his creatinine was 0.92) glucose 119 IMAGING: CT head without contrast 03/13/2019: Cerebral atrophy. No acute intracranial abnormality. ASSESSMENT: Mr. Tiwari is a 73-year-old R-handed man with past medical history of asthma, coronary artery disease, chest pain, heart failure, COPD, hyperlipidemia, hypertension, osteoarthritis, gout, SBO, with complicated hospitalization with non-stemi, runs of V.tach s/p biventricular ICD implantation, bacteremia with evidence of vegetation on bioprosthetic valve, consulting Neurology for AMS. Patient with generalized weakness with no obvious lateralization. Patient is definitely at high risk of stroke considering the vegetation finding on bioprosthetic valve (patient being treated with antibiotics), but his generalized weakness most likely from his prolonged hospitalization with multiple complications. Cannot get MRI brain as patient now with ICD. RECOMMENDATIONS: 1. Repeat CT Head without contrast 2. Routine EEG 3. Labs: TSH, ammonia, Vitamin B12 4. Neurology will continue to follow Past Medical History Past Medical History: Asthma, Coronary Artery Disease (CAD), Chest Pain / Angina, Heart Failure, COPD, GERD/Reflux, Hyperlipidemia, Hypertension, Osteoarthritis (OA) Additional Past Medical History / Comment(s): Artery disease, previous NE, previous history of coronary artery bypass surgery, previous history aortic valve replacement with a bioprosthetic valve, CHF with ejection fraction of 20- 25%, obesity with a BMI of 43, COPD, hypertension, hyperlipidemia, umbilical hernia, previous history of small bowel obstruction with an incarcerated hernia requiring surgical intervention, history of PTSD, generalized anxiety disorder, gout, 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 Past Anesthesia/Blood Transfusion Reactions: No Reported Reaction Date of Last Stent Placement:: 03/22/17 Past Psychological History: Anxiety, PTSD Smoking Status: Former smoker Past Alcohol Use History: None Reported Past Drug Use History: None Reported - Past Family History Father Family Medical History: Myocardial Infarction (NE) Additional Family Medical History / Comment(s): CABG. Father had a NE at the age of 72 yrs. Father at the age of 85 yrs. Mother Family Medical History: Myocardial Infarction (NE) Additional Family Medical History / Comment(s): CABG. Mother had a NE in her 70s. She lived to be 88yrs old. Medications and Allergies Home Medications Medication Instructions Recorded Confirmed Type Albuterol Sulfate [Proair Hfa] 2 puff INHALATION RT-QID PRN 01/27/16 03/01/19 History Budesonide-Formot 160-4.5 Mcg 2 puff INHALATION RT-BID PRN 01/27/16 03/01/19 History [Symbicort 160-4.5 Mcg Inhaler] Tiotropium [place] [Spiriva] 1 puff INHALATION RT-DAILY 01/27/16 03/01/19 History Metoprolol Tartrate [Lopressor] 25 mg PO BID #30 tab 02/03/16 03/01/19 Rx Allopurinol [Zyloprim] 100 mg PO HS PRN 01/04/17 03/01/19 History Lisinopril [Zestril] 5 mg PO HS 01/04/17 03/01/19 History Albuterol Nebulized [Ventolin 2.5 mg INHALATION Q4H PRN 03/19/17 03/01/19 History Nebulized] Omeprazole [PriLOSEC] 40 mg PO AC-BRKFST 03/19/17 03/01/19 History Pravastatin Sodium [Pravachol] 10 mg PO HS 03/19/17 03/01/19 History Sildenafil Citrate [Viagra] 100 mg PO DIRECTED PRN 03/19/17 03/01/19 History Aspirin EC [Ecotrin Low Dose] 81 mg PO DAILY 08/29/18 03/01/19 History Spironolactone [Aldactone] 25 mg PO DAILY #30 tab 09/01/18 03/01/19 Rx Furosemide [Lasix] 40 mg PO BID 09/18/18 03/01/19 History Clopidogrel [Plavix] 75 mg PO HS 09/19/18 03/01/19 History Allergies Allergy/AdvReac Type Severity Reaction Status Date / Time levofloxacin [From Levaquin] AdvReac Unknown Verified 03/01/19 15:17 Physical Examination - Vital Signs Vital Signs: Vital Signs Temp Pulse Pulse Resp BP BP BP 03/18/19 12:20 89 03/18/19 12:01 85 03/18/19 12:00 97.6 F 81 20 113/77 03/18/19 10:01 80 118/75 03/18/19 09:07 102 H 03/18/19 08:58 100 03/18/19 08:00 97.3 F L 99 24 112/67 03/18/19 04:00 97.8 F 103 H 20 130/78 03/18/19 00:00 98 20 03/17/19 21:03 90 16 03/17/19 20:54 93 16 03/17/19 20:00 98.1 F 94 20 112/82 03/17/19 17:49 98.4 F 86 22 110/84 03/17/19 16:19 108 H 03/17/19 16:11 104 H 03/17/19 16:00 92 03/17/19 15:00 97.5 F L 98 20 127/82 03/17/19 14:00 92 29 H Pulse Ox 03/18/19 12:20 03/18/19 12:01 03/18/19 12:00 98 03/18/19 10:01 03/18/19 09:07 03/18/19 08:58 100 03/18/19 08:00 98 03/18/19 04:00 92 L 03/18/19 00:00 03/17/19 21:03 03/17/19 20:54 95 03/17/19 20:00 95 03/17/19 17:49 96 03/17/19 16:19 03/17/19 16:11 03/17/19 16:00 95 03/17/19 15:00 96 03/17/19 14:00 95 Intake and Output 03/17/19 03/18/19 03/18/19 22:59 06:59 14:59 Intake Total 240 240 90 Output Total 90 500 Balance 150 -260 90 Intake: IV 120 Ampicillin-Sulbactam 3 gm 100 In Sodium Chloride 0.9% 100 ml @ 200 mls/hr IVPB Q6H DEANDRA Rx#:[id number] KVO 20 Oral 120 240 90 Output: Urine 90 500 Other: Voiding Method Indwelling Catheter Indwelling Catheter # Voids 0 Weight 123.6 kg Results - Laboratory Findings CBC and BMP: 03/18/19 05:55 03/18/19 05:55 Abnormal Lab Findings: Abnormal Labs 03/01/19 03/01/19 03/01/19 15:07 15:07 15:07 WBC 13.0 H RBC 4.19 L Hgb 12.2 L Hct 37.0 L MCHC RDW 16.1 H Neutrophils # 11.4 H Neutrophils # (Manual) Lymphocytes # 0.8 L APTT ABG pH ABG pCO2 ABG pO2 ABG HCO3 ABG Total CO2 ABG O2 Saturation Sodium Chloride Carbon Dioxide BUN 21 H Creatinine Glucose 119 H POC Glucose (mg/dL) Phosphorus Magnesium AST ALT Alkaline Phosphatase 154 H Troponin I 2.370 H* Albumin 3.4 L LDL Cholesterol, Calc HDL Cholesterol Urine Protein 03/01/19 03/01/19 03/02/19 21:40 21:40 04:09 WBC RBC Hgb Hct MCHC RDW Neutrophils # Neutrophils # (Manual) Lymphocytes # APTT 34.5 H ABG pH ABG pCO2 ABG pO2 ABG HCO3 ABG Total CO2 ABG O2 Saturation Sodium Chloride Carbon Dioxide BUN Creatinine Glucose POC Glucose (mg/dL) Phosphorus Magnesium AST ALT Alkaline Phosphatase Troponin I 1.490 H* 1.080 H* Albumin LDL Cholesterol, Calc HDL Cholesterol Urine Protein 0903/02/19 03/02/19 04:09 04:09 04:09 WBC RBC 3.98 L Hgb 11.6 L Hct 35.4 L MCHC RDW Neutrophils # 8.2 H Neutrophils # (Manual) Lymphocytes # 0.7 L APTT 35.8 H ABG pH ABG pCO2 ABG pO2 ABG HCO3 ABG Total CO2 ABG O2 Saturation Sodium Chloride Carbon Dioxide BUN 26 H Creatinine Glucose 174 H POC Glucose (mg/dL) Phosphorus Magnesium AST ALT Alkaline Phosphatase Troponin I Albumin LDL Cholesterol, Calc 148 H HDL Cholesterol 19 L Urine Protein 03/02/19 03/02/19 03/03/19 14:57 21:57 06:10 WBC RBC Hgb Hct MCHC RDW Neutrophils # Neutrophils # (Manual) Lymphocytes # APTT 45.4 H 53.7 H ABG pH ABG pCO2 ABG pO2 ABG HCO3 ABG Total CO2 ABG O2 Saturation Sodium Chloride Carbon Dioxide BUN Creatinine Glucose POC Glucose (mg/dL) 132 H Phosphorus Magnesium AST ALT Alkaline Phosphatase Troponin I Albumin LDL Cholesterol, Calc HDL Cholesterol Urine Protein 03/03/19 03/03/19 03/04/19 11:40 16:35 02:17 WBC 10.8 H RBC 4.12 L Hgb 11.7 L Hct 36.8 L MCHC RDW Neutrophils # 9.2 H Neutrophils # (Manual) Lymphocytes # 0.7 L APTT ABG pH ABG pCO2 ABG pO2 ABG HCO3 ABG Total CO2 ABG O2 Saturation Sodium Chloride Carbon Dioxide BUN Creatinine Glucose POC Glucose (mg/dL) 107 H 131 H Phosphorus Magnesium AST ALT Alkaline Phosphatase Troponin I Albumin LDL Cholesterol, Calc HDL Cholesterol Urine Protein 03/04/19 03/04/19 03/04/19 02:17 18:32 20:19 WBC 15.8 H RBC 4.21 L Hgb 12.2 L Hct 37.1 L MCHC RDW 15.9 H Neutrophils # Neutrophils # (Manual) Lymphocytes # APTT ABG pH ABG pCO2 ABG pO2 ABG HCO3 ABG Total CO2 ABG O2 Saturation Sodium Chloride Carbon Dioxide BUN 36 H Creatinine 1.39 H Glucose 131 H POC Glucose (mg/dL) 165 H Phosphorus Magnesium AST ALT Alkaline Phosphatase Troponin I Albumin LDL Cholesterol, Calc HDL Cholesterol Urine Protein 03/04/19 03/05/19 03/05/19 23:09 06:09 11:42 WBC RBC Hgb Hct MCHC RDW Neutrophils # Neutrophils # (Manual) Lymphocytes # APTT ABG pH ABG pCO2 ABG pO2 ABG HCO3 ABG Total CO2 ABG O2 Saturation Sodium 136 L Chloride Carbon Dioxide BUN 45 H Creatinine 1.96 H Glucose 119 H POC Glucose (mg/dL) 130 H Phosphorus Magnesium AST ALT Alkaline Phosphatase Troponin I Albumin LDL Cholesterol, Calc HDL Cholesterol Urine Protein Trace H 03/05/19 03/05/19 03/06/19 22:22 23:06 00:03 WBC 19.4 H RBC 3.63 L Hgb 10.4 L Hct 32.9 L MCHC RDW Neutrophils # 17.6 H Neutrophils # (Manual) Lymphocytes # 0.7 L APTT ABG pH 7.28 L ABG pCO2 51 H ABG pO2 234 H ABG HCO3 ABG Total CO2 26 H ABG O2 Saturation 99.3 H Sodium Chloride Carbon Dioxide BUN Creatinine Glucose POC Glucose (mg/dL) 173 H Phosphorus Magnesium AST ALT Alkaline Phosphatase Troponin I Albumin LDL Cholesterol, Calc HDL Cholesterol Urine Protein 03/06/19 03/06/19 03/06/19 00:22 02:42 02:42 WBC 20.6 H RBC 3.83 L Hgb 11.0 L Hct 33.8 L MCHC RDW Neutrophils # 18.8 H Neutrophils # (Manual) Lymphocytes # 0.8 L APTT ABG pH ABG pCO2 ABG pO2 80 L ABG HCO3 ABG Total CO2 ABG O2 Saturation Sodium Chloride Carbon Dioxide 20 L BUN 45 H Creatinine 2.61 H Glucose 157 H POC Glucose (mg/dL) Phosphorus Magnesium AST ALT Alkaline Phosphatase Troponin I Albumin LDL Cholesterol, Calc HDL Cholesterol Urine Protein 03/06/19 03/06/19 03/06/19 04:52 11:45 23:54 WBC RBC Hgb Hct MCHC RDW Neutrophils # Neutrophils # (Manual) Lymphocytes # APTT ABG pH 7.48 H ABG pCO2 28 L ABG pO2 229 H ABG HCO3 ABG Total CO2 ABG O2 Saturation 99.9 H Sodium Chloride Carbon Dioxide BUN Creatinine Glucose POC Glucose (mg/dL) 161 H 110 H Phosphorus Magnesium AST ALT Alkaline Phosphatase Troponin I Albumin LDL Cholesterol, Calc HDL Cholesterol Urine Protein 03/07/19 03/07/19 03/07/19 03:10 03:10 05:34 WBC RBC 3.63 L Hgb 10.5 L Hct 31.7 L MCHC RDW Neutrophils # 8.6 H Neutrophils # (Manual) Lymphocytes # 0.7 L APTT ABG pH ABG pCO2 34 L ABG pO2 131 H ABG HCO3 ABG Total CO2 25 H ABG O2 Saturation 98.9 H Sodium Chloride Carbon Dioxide BUN 45 H Creatinine 2.14 H Glucose 123 H POC Glucose (mg/dL) Phosphorus 4.7 H Magnesium AST ALT Alkaline Phosphatase Troponin I Albumin LDL Cholesterol, Calc HDL Cholesterol Urine Protein 03/07/19 03/07/19 03/07/19 06:05 11:58 18:07 WBC RBC Hgb Hct MCHC RDW Neutrophils # Neutrophils # (Manual) Lymphocytes # APTT ABG pH ABG pCO2 ABG pO2 ABG HCO3 ABG Total CO2 ABG O2 Saturation Sodium Chloride Carbon Dioxide BUN Creatinine Glucose POC Glucose (mg/dL) 134 H 123 H 129 H Phosphorus Magnesium AST ALT Alkaline Phosphatase Troponin I Albumin LDL Cholesterol, Calc HDL Cholesterol Urine Protein 03/08/19 03/08/19 03/08/19 00:02 03:50 03:50 WBC RBC 3.61 L Hgb 10.4 L Hct 31.8 L MCHC RDW Neutrophils # 8.3 H Neutrophils # (Manual) Lymphocytes # 0.8 L APTT ABG pH ABG pCO2 ABG pO2 ABG HCO3 ABG Total CO2 ABG O2 Saturation Sodium Chloride 108 H Carbon Dioxide BUN 38 H Creatinine 1.72 H Glucose 155 H POC Glucose (mg/dL) 132 H Phosphorus Magnesium 2.5 H AST ALT Alkaline Phosphatase Troponin I Albumin LDL Cholesterol, Calc HDL Cholesterol Urine Protein 03/08/19 03/08/19 03/08/19 04:40 05:38 11:43 WBC RBC Hgb Hct MCHC RDW Neutrophils # Neutrophils # (Manual) Lymphocytes # APTT ABG pH ABG pCO2 ABG pO2 ABG HCO3 26 H ABG Total CO2 27 H ABG O2 Saturation 98.0 H Sodium Chloride Carbon Dioxide BUN Creatinine Glucose POC Glucose (mg/dL) 155 H 145 H Phosphorus Magnesium AST ALT Alkaline Phosphatase Troponin I Albumin LDL Cholesterol, Calc HDL Cholesterol Urine Protein 03/08/19 03/09/19 03/09/19 17:20 00:00 04:30 WBC 12.3 H RBC 3.59 L Hgb 10.2 L Hct 31.7 L MCHC RDW Neutrophils # 9.9 H Neutrophils # (Manual) Lymphocytes # 0.9 L APTT ABG pH ABG pCO2 ABG pO2 ABG HCO3 ABG Total CO2 ABG O2 Saturation Sodium Chloride Carbon Dioxide BUN Creatinine Glucose POC Glucose (mg/dL) 132 H 139 H Phosphorus Magnesium AST ALT Alkaline Phosphatase Troponin I Albumin LDL Cholesterol, Calc HDL Cholesterol Urine Protein 03/09/19 03/09/19 03/09/19 04:30 04:35 05:34 WBC RBC Hgb Hct MCHC RDW Neutrophils # Neutrophils # (Manual) Lymphocytes # APTT ABG pH ABG pCO2 ABG pO2 120 H ABG HCO3 27 H ABG Total CO2 29 H ABG O2 Saturation 98.7 H Sodium Chloride 108 H Carbon Dioxide BUN 42 H Creatinine 1.75 H Glucose 129 H POC Glucose (mg/dL) 144 H Phosphorus Magnesium AST ALT Alkaline Phosphatase Troponin I Albumin LDL Cholesterol, Calc HDL Cholesterol Urine Protein 03/09/19 03/09/19 03/09/19 11:29 17:41 23:44 WBC RBC Hgb Hct MCHC RDW Neutrophils # Neutrophils # (Manual) Lymphocytes # APTT ABG pH ABG pCO2 ABG pO2 ABG HCO3 ABG Total CO2 ABG O2 Saturation Sodium Chloride Carbon Dioxide BUN Creatinine Glucose POC Glucose (mg/dL) 118 H 111 H 130 H Phosphorus Magnesium AST ALT Alkaline Phosphatase Troponin I Albumin LDL Cholesterol, Calc HDL Cholesterol Urine Protein 03/10/19 03/10/19 03/10/19 04:00 04:00 05:31 WBC 14.8 H RBC 3.65 L Hgb 10.5 L Hct 32.3 L MCHC RDW Neutrophils # 11.8 H Neutrophils # (Manual) Lymphocytes # APTT ABG pH ABG pCO2 ABG pO2 ABG HCO3 ABG Total CO2 ABG O2 Saturation Sodium 146 H Chloride 109 H Carbon Dioxide BUN 42 H Creatinine 1.70 H Glucose 141 H POC Glucose (mg/dL) 132 H Phosphorus Magnesium AST ALT Alkaline Phosphatase Troponin I Albumin LDL Cholesterol, Calc HDL Cholesterol Urine Protein 03/10/19 03/10/19 03/10/19 07:26 16:46 23:06 WBC RBC Hgb Hct MCHC RDW Neutrophils # Neutrophils # (Manual) Lymphocytes # APTT ABG pH ABG pCO2 ABG pO2 117 H ABG HCO3 30 H ABG Total CO2 31 H ABG O2 Saturation 98.5 H Sodium Chloride Carbon Dioxide BUN Creatinine Glucose POC Glucose (mg/dL) 136 H 139 H Phosphorus Magnesium AST ALT Alkaline Phosphatase Troponin I Albumin LDL Cholesterol, Calc HDL Cholesterol Urine Protein 03/11/19 03/11/19 03/11/19 05:20 05:22 05:22 WBC 11.4 H RBC 3.71 L Hgb 10.2 L Hct 34.2 L MCHC 29.8 L RDW Neutrophils # 9.2 H Neutrophils # (Manual) Lymphocytes # 0.9 L APTT ABG pH ABG pCO2 ABG pO2 ABG HCO3 ABG Total CO2 ABG O2 Saturation Sodium 148 H Chloride 109 H Carbon Dioxide BUN 51 H Creatinine 1.84 H Glucose 148 H POC Glucose (mg/dL) 149 H Phosphorus Magnesium AST ALT Alkaline Phosphatase Troponin I Albumin LDL Cholesterol, Calc HDL Cholesterol Urine Protein 03/11/19 03/11/19 03/11/19 07:17 11:39 14:09 WBC RBC Hgb Hct MCHC RDW Neutrophils # Neutrophils # (Manual) Lymphocytes # APTT ABG pH 7.50 H 7.51 H ABG pCO2 ABG pO2 ABG HCO3 31 H 32 H ABG Total CO2 32 H 33 H ABG O2 Saturation 98.1 H 97.8 H Sodium Chloride Carbon Dioxide BUN Creatinine Glucose POC Glucose (mg/dL) 139 H Phosphorus Magnesium AST ALT Alkaline Phosphatase Troponin I Albumin LDL Cholesterol, Calc HDL Cholesterol Urine Protein 03/11/19 03/11/19 03/11/19 18:08 19:21 23:53 WBC RBC Hgb Hct MCHC RDW Neutrophils # Neutrophils # (Manual) Lymphocytes # APTT ABG pH ABG pCO2 ABG pO2 ABG HCO3 ABG Total CO2 ABG O2 Saturation Sodium Chloride Carbon Dioxide BUN Creatinine Glucose POC Glucose (mg/dL) 140 H 122 H 134 H Phosphorus Magnesium AST ALT Alkaline Phosphatase Troponin I Albumin LDL Cholesterol, Calc HDL Cholesterol Urine Protein 03/12/19 03/12/19 03/12/19 05:20 05:20 05:37 WBC RBC 3.66 L Hgb 10.1 L Hct 34.0 L MCHC 29.7 L RDW Neutrophils # 8.0 H Neutrophils # (Manual) Lymphocytes # 0.9 L APTT ABG pH ABG pCO2 ABG pO2 ABG HCO3 ABG Total CO2 ABG O2 Saturation Sodium 148 H Chloride 109 H Carbon Dioxide 34 H BUN 61 H Creatinine 1.78 H Glucose 145 H POC Glucose (mg/dL) 143 H Phosphorus Magnesium AST ALT Alkaline Phosphatase Troponin I Albumin LDL Cholesterol, Calc HDL Cholesterol Urine Protein 03/12/19 03/12/19 03/12/19 07:33 11:13 13:45 WBC RBC Hgb Hct MCHC RDW Neutrophils # Neutrophils # (Manual) Lymphocytes # APTT ABG pH 7.48 H 7.51 H ABG pCO2 ABG pO2 77 L ABG HCO3 33 H 33 H ABG Total CO2 35 H 34 H ABG O2 Saturation Sodium Chloride Carbon Dioxide BUN Creatinine Glucose POC Glucose (mg/dL) 120 H Phosphorus Magnesium AST ALT Alkaline Phosphatase Troponin I Albumin LDL Cholesterol, Calc HDL Cholesterol Urine Protein 03/12/19 03/13/19 03/13/19 17:37 00:03 05:00 WBC 12.5 H RBC 3.75 L Hgb 10.5 L Hct 35.8 L MCHC 29.3 L RDW Neutrophils # 10.4 H Neutrophils # (Manual) Lymphocytes # APTT ABG pH ABG pCO2 ABG pO2 ABG HCO3 ABG Total CO2 ABG O2 Saturation Sodium Chloride Carbon Dioxide BUN Creatinine Glucose POC Glucose (mg/dL) 116 H 114 H Phosphorus Magnesium AST ALT Alkaline Phosphatase Troponin I Albumin LDL Cholesterol, Calc HDL Cholesterol Urine Protein 03/13/19 03/13/19 03/13/19 05:00 05:00 11:44 WBC RBC Hgb Hct MCHC RDW Neutrophils # Neutrophils # (Manual) Lymphocytes # APTT ABG pH ABG pCO2 ABG pO2 ABG HCO3 ABG Total CO2 ABG O2 Saturation Sodium 153 H Chloride 110 H Carbon Dioxide 36 H BUN 66 H Creatinine 1.98 H Glucose 132 H POC Glucose (mg/dL) 152 H Phosphorus Magnesium AST 116 H ALT 103 H Alkaline Phosphatase 166 H Troponin I Albumin LDL Cholesterol, Calc HDL Cholesterol Urine Protein 03/13/19 03/13/19 03/14/19 19:43 21:00 01:11 WBC RBC Hgb Hct MCHC RDW Neutrophils # Neutrophils # (Manual) Lymphocytes # APTT ABG pH ABG pCO2 ABG pO2 ABG HCO3 ABG Total CO2 ABG O2 Saturation Sodium Chloride Carbon Dioxide BUN Creatinine Glucose POC Glucose (mg/dL) 143 H 141 H 128 H Phosphorus Magnesium AST ALT Alkaline Phosphatase Troponin I Albumin LDL Cholesterol, Calc HDL Cholesterol Urine Protein 03/14/19 03/14/19 03/14/19 05:35 05:35 05:35 WBC 14.6 H RBC 3.83 L Hgb 10.6 L Hct 36.5 L MCHC 29.1 L RDW Neutrophils # 12.2 H Neutrophils # (Manual) Lymphocytes # APTT ABG pH ABG pCO2 ABG pO2 ABG HCO3 ABG Total CO2 ABG O2 Saturation Sodium 150 H Chloride 109 H Carbon Dioxide BUN 69 H Creatinine 1.99 H Glucose 147 H POC Glucose (mg/dL) Phosphorus Magnesium 2.7 H AST ALT Alkaline Phosphatase Troponin I Albumin LDL Cholesterol, Calc HDL Cholesterol Urine Protein 03/14/19 03/14/19 03/14/19 06:52 12:35 16:59 WBC RBC Hgb Hct MCHC RDW Neutrophils # Neutrophils # (Manual) Lymphocytes # APTT ABG pH ABG pCO2 ABG pO2 ABG HCO3 ABG Total CO2 ABG O2 Saturation Sodium Chloride Carbon Dioxide BUN Creatinine Glucose POC Glucose (mg/dL) 150 H 135 H 154 H Phosphorus Magnesium AST ALT Alkaline Phosphatase Troponin I Albumin LDL Cholesterol, Calc HDL Cholesterol Urine Protein 03/14/19 03/15/19 03/15/19 21:15 00:45 01:00 WBC RBC Hgb Hct MCHC RDW Neutrophils # Neutrophils # (Manual) Lymphocytes # APTT ABG pH ABG pCO2 48 H ABG pO2 61 L ABG HCO3 32 H ABG Total CO2 33 H ABG O2 Saturation 88.9 L Sodium Chloride Carbon Dioxide BUN Creatinine Glucose POC Glucose (mg/dL) 139 H 139 H Phosphorus Magnesium AST ALT Alkaline Phosphatase Troponin I Albumin LDL Cholesterol, Calc HDL Cholesterol Urine Protein 03/15/19 03/15/19 03/15/19 04:17 04:21 06:43 WBC 15.6 H RBC 3.81 L Hgb 10.9 L Hct 36.5 L MCHC 29.9 L RDW Neutrophils # 13.0 H Neutrophils # (Manual) Lymphocytes # APTT ABG pH ABG pCO2 ABG pO2 ABG HCO3 ABG Total CO2 ABG O2 Saturation Sodium 146 H Chloride 108 H Carbon Dioxide BUN 75 H Creatinine 2.19 H Glucose 160 H POC Glucose (mg/dL) 149 H Phosphorus Magnesium AST ALT Alkaline Phosphatase Troponin I Albumin LDL Cholesterol, Calc HDL Cholesterol Urine Protein 03/15/19 03/15/19 03/15/19 07:48 11:34 16:52 WBC RBC Hgb Hct MCHC RDW Neutrophils # Neutrophils # (Manual) Lymphocytes # APTT ABG pH ABG pCO2 ABG pO2 ABG HCO3 ABG Total CO2 ABG O2 Saturation Sodium Chloride Carbon Dioxide BUN Creatinine Glucose POC Glucose (mg/dL) 151 H 120 H 146 H Phosphorus Magnesium AST ALT Alkaline Phosphatase Troponin I Albumin LDL Cholesterol, Calc HDL Cholesterol Urine Protein 03/15/19 03/16/19 03/16/19 21:03 05:20 05:26 WBC 16.8 H RBC 3.81 L Hgb 10.9 L Hct 37.0 L MCHC 29.4 L RDW Neutrophils # 14.4 H Neutrophils # (Manual) Lymphocytes # APTT ABG pH ABG pCO2 ABG pO2 ABG HCO3 ABG Total CO2 ABG O2 Saturation Sodium Chloride Carbon Dioxide BUN 76 H Creatinine 2.08 H Glucose 146 H POC Glucose (mg/dL) 241 H Phosphorus Magnesium AST ALT Alkaline Phosphatase Troponin I Albumin LDL Cholesterol, Calc HDL Cholesterol Urine Protein 03/16/19 03/16/19 03/16/19 06:54 11:52 16:32 WBC RBC Hgb Hct MCHC RDW Neutrophils # Neutrophils # (Manual) Lymphocytes # APTT ABG pH ABG pCO2 ABG pO2 ABG HCO3 ABG Total CO2 ABG O2 Saturation Sodium Chloride Carbon Dioxide BUN Creatinine Glucose POC Glucose (mg/dL) 141 H 145 H 138 H Phosphorus Magnesium AST ALT Alkaline Phosphatase Troponin I Albumin LDL Cholesterol, Calc HDL Cholesterol Urine Protein 03/16/19 03/17/19 03/17/19 20:34 05:36 05:41 WBC 15.9 H RBC 3.75 L Hgb 11.1 L Hct 36.5 L MCHC 30.4 L RDW Neutrophils # 13.1 H Neutrophils # (Manual) Lymphocytes # APTT ABG pH ABG pCO2 ABG pO2 ABG HCO3 ABG Total CO2 ABG O2 Saturation Sodium Chloride Carbon Dioxide BUN 75 H Creatinine 2.10 H Glucose 114 H POC Glucose (mg/dL) 146 H Phosphorus Magnesium AST ALT Alkaline Phosphatase Troponin I Albumin LDL Cholesterol, Calc HDL Cholesterol Urine Protein 03/17/19 03/17/19 03/17/19 06:39 11:29 16:43 WBC RBC Hgb Hct MCHC RDW Neutrophils # Neutrophils # (Manual) Lymphocytes # APTT ABG pH ABG pCO2 ABG pO2 ABG HCO3 ABG Total CO2 ABG O2 Saturation Sodium Chloride Carbon Dioxide BUN Creatinine Glucose POC Glucose (mg/dL) 111 H 159 H 154 H Phosphorus Magnesium AST ALT Alkaline Phosphatase Troponin I Albumin LDL Cholesterol, Calc HDL Cholesterol Urine Protein 03/17/19 03/17/19 03/18/19 17:58 20:20 05:55 WBC 15.9 H RBC 3.97 L Hgb 11.4 L Hct 36.8 L MCHC RDW 15.9 H Neutrophils # Neutrophils # (Manual) 13.36 H Lymphocytes # APTT ABG pH ABG pCO2 ABG pO2 ABG HCO3 ABG Total CO2 ABG O2 Saturation Sodium Chloride Carbon Dioxide BUN Creatinine Glucose POC Glucose (mg/dL) 138 H 191 H Phosphorus Magnesium AST ALT Alkaline Phosphatase Troponin I Albumin LDL Cholesterol, Calc HDL Cholesterol Urine Protein 03/18/19 03/18/19 03/18/19 05:55 06:27 11:52 WBC RBC Hgb Hct MCHC RDW Neutrophils # Neutrophils # (Manual) Lymphocytes # APTT ABG pH ABG pCO2 ABG pO2 ABG HCO3 ABG Total CO2 ABG O2 Saturation Sodium Chloride Carbon Dioxide BUN 77 H Creatinine 2.35 H Glucose 119 H POC Glucose (mg/dL) 131 H 141 H Phosphorus Magnesium AST ALT Alkaline Phosphatase Troponin I Albumin LDL Cholesterol, Calc HDL Cholesterol Urine Protein
[2019-03-18] MEDS: CLOPIDOGREL 75 MG TAB PO SCH (21:52)
[2019-03-19 06:08] LABS: Glucose,Whole Blood 142 mg/dL (75-99)
[2019-03-19] MEDS: INSULIN ASPART (NovoLOG) 100 UNIT/ML VIAL SQ SCH ×4 (06:10→22:39)
[2019-03-19 06:43] LABS: Anisocytosis Slight; Basophils # (A) 0.1 k/uL (0-0.2); Basophils % (A) 1 %; Eosinophils # (A) 0.3 k/uL (0-0.7); Eosinophils % (A) 2 %; HCT 37.6 % (39.0-53.0); HGB 11.4 gm/dL (13.0-17.5); Hypochromasia Marked; Lymphocytes # (A) 1.5 k/uL (1.0-4.8); Lymphocytes % (A) 9 %; MCH 29.1 pg (25.0-35.0); MCHC 30.4 g/dL (31.0-37.0); MCV 95.5 fL (80.0-100.0); Macrocytosis Slight; Mean Platelet Volume 8.7; Monocytes # (A) 0.7 k/uL (0-1.0); Monocytes % (A) 4 %; Neutrophils # (A) 13.4 k/uL (1.3-7.7); Neutrophils % (A) 83 %; Platelet Count 291 k/uL (150-450); RBC 3.94 m/uL (4.30-5.90); RDW 17.2 % (11.5-15.5); WBC 16.1 k/uL (3.8-10.6)
[2019-03-19 06:52] LABS: Calcium 8.7 mg/dL (8.4-10.2); Potassium 3.6 mmol/L (3.5-5.1)
--- NOTE | 2019-03-19 08:09 | P.PN ---
Subjective This is a pleasant 73 years old male with past medical history of coronary artery disease patient , , heart failure, asthma, GERD, hyperlipidemia, h ypertension, osteoarthritis, valvular heart disease. Patient was admitted with non-STEMI, he underwent cardiac cath on 03/03/2019, showing patent stents and coronaries. Also patient underwent elective EP study yesterday and status post AICD placement, patient is currently in the ICU intubated and could not provide information, he was extubated for short time before he needed reintubation. Information was taken from the staff at the medical records as patient cannot contribute to history . He has low ejection fraction 20-25%. Patient is obese and he needed low dose of pressors. He has distended abdomen, possibly from fat. No focal neurological findings. Also he has positive blood culture with enterococcus and trending up leukocytes. Infectious disease was consulted, patient is currently on Zosyn. Also patient creatinine is trending up however patient is making reasonable urine output, he was on Lasix drip but this was stopped. 03/07/2019 Patient in the ICU intubated and sedated, his vitals with blood pressure 130/54, and he is saturating 98%. His WBC is back to normal at 10.5. Creatinine is at 2.14 with slight improvement down from 2.6 yesterday. He has several blood culture positive for enterococcus. Chest x-ray showing no significant change. Patient has been evaluated by security shift supervisor and cabin supervisor, cabin supervisor considering LISSET if blood culture remains positive. Patient also was started on gentamicin and Unasyn as per infectious disease recommendation 03/08/2019 Patient remains in the ICU, he still intubated and sedated. Blood pressure 108/52, saturating 96%, heart rate is 70. K, hemoglobin is stable at 10.4, platelets are within normal limits. Creatinine is improving gradually down to 1.7, electrolytes included sodium and potassium are within normal limits, sugar is running between 129-155. Magnesium is elevated at 2.5,. He has several bloo d culture that's positive for group D enterococcus faecalis, cardiology R following the case and the plan is for transesophageal echocardiogram tomorrow to rule out endocarditis 03/09/2019 Patient is ICU intubated and sedated, patient is planned to go for transesophageal echocardiogram today to rule out endocarditis in view of his persistent bacteremia/septicemia. Patient remains currently on Unasyn. Patient is slightly bradycardic at 57-60, he had low-grade temperature yesterday of 100.2, blood pressure 102/58, lap showing mild leukocytosis of 12.3 K, hemoglobin is stable. Creatinine is improving to 1.75. ABGs showed pH of 7.4, pCO2 42 which are within normal limits, pO2 is 120. Repeat blood cultures are pending, repeat chest x-ray from today showing fluid overload with interstitial edema with possible atelectasis. 03/10/2019 Patient remains in the ICU intubated and sedated, yesterday he had a LISSET which showing low ejection fraction around 20% with agitation note dictated on the aortic valve. Also patient noted to bleed easily given from subcutaneous injection site, currently is on subcu heparin to 8 which is lower to every 12 this morning, he is also on aspirin and Plavix, platelets are normal. We don't to check PT and INR and PTT today. Last night patient was started on Cardizem drip for better control of his blood pressure and heart rate and blood pressure. Patient is followed closely by cardiology and rectal care team. Prognosis is extremely poor 03/11/2019 Patient remains in the ICU, he is intubated and sedated. Patient failed weaning trials today by the pulmonary team. Patient is still tachycardic and he was started on Cardizem drip today, blood pressure 111/66. mild leukocytosis of 11.4 k, hemoglobin 10.2, sodium is 148, creatinine 1.8, compared to 1.7 yesterday. repeat blood cultures still shown enterococcus. the patient remains on unasyn and ceftriaxone currently with infectious disease followed the case closely. patient is following closely by cardiology and pulmonary/critical care team. prognosis remains guarded 03/12/2019 Patient remains in the ICU in critical condition, he is intubated and sedated however he is undergoing wound and a trial which has been failed previously. Blood pressure on the low side 66/38, wbc of 10.2 k, hemoglobin 10.1. his creatinine is stable at 1.7, high sodium on 148. Sugar is controlled at the r bo of 120-143. Repeat blood culture from 03/10 and 03/09 still pending which shows no growth so far. Repeat chest x-ray showed stable findings. His been followed closely by several consultants including cardiology, critical care and infectious disease recommended to continue with Unasyn and ceftriaxone for 6 weeks. Subjective 03/16/2019 Patient remains in the ICU. Is a status post extubation. Currently he is on oxygen nasal cannula 6 L/m with his oxygen saturation at 99%. Rest of vitals show a respiratory rate of 22-25, with tachycardia 108 07/11/2013, rest of vitals stable and patient is afebrile for the last few days. Labs showing resistant leukocytosis at 16.8 K, creatinine stable at 2.0. He has no chest pain, no headache. No change in bowel habits. He remains on Unasyn and ceftriaxone as per infectious disease recommendation, his Lasix was lowered to 40 mg IV daily, and he is off the amiodarone drip and currently is on amiodarone pills at 200 mg twice daily. Patient is able to eat and drink so D5W was stopped. Pain is controlled. 03/17/2019 Patient gives improving, he is awake and oriented, he knows why he is in the hospital. He feels generally weak and still short of breath. He is saturating 78-88% on room air, however patient is non-adherent to his oxygen therapy and he keeps taken off his nasal cannula. His saturation goes up to 97% on 4 L oxygen via high flow cannula. No chest pain. Slightly tachycardic. Blood pressure s table. Still have leukocytosis of 15.9 and creatinine stable at 2.1. Sugar control. Patient remains on Unasyn and ceftriaxone and he will need a PICC line and prolonged antibiotic course. ECF is recommended for patient upon discharge. Also is on Lasix 40 mg twice daily and amiodarone 200 mg twice daily basis metoprolol 75 mg 3 times daily. Pain controlled Discussed with the staff today 03/18/2019 Patient was transported to the select unit at the general medical floor. He is awake and alert, he still short of breath with decreased air entry in both sides, however he denies chest pain, his Kassy to tolerate his diet. His Vitas looks stable. Patient has persistent leukocytosis at 15.9 K, creatinine is 2.3. And sugars controlled. Patient remains on Unasyn and Rocephin per infectious disease team with cardiology and pulmonary team R following closely. 03/19/2019 Family concern that the patient was still not at his baseline mental status and they were asking for neurology evaluation. Neurologist recommended repeat CT of the head, EEG, with lab work including TSH ammonia and vitamin B12. Patient is still short of breath with abdominal distention. He is profoundly weak and yesterday did not participate with physical therapy. Cardiology and infectious disease R following the case closely and they cleared the patient for PICC line as he has negative blood culture on repeat testing. On for him for prolonged antibiotics for 6 weeks. Lap showing persistent leukocytosis of 16.1 K, creatinine 2.4 and sodium 147. Patient is followed closely by pulmonary and renal team. Patient has couple of loose bowel movements. We will order abdominal x-rays Review of system: Nonapplicable Active Medications Generic Name Dose Route Start Last Admin Trade Name Freq PRN Reason Stop Dose Admin Acetaminophen 650 mg 03/05/19 18:53 03/14/19 12:24 Tylenol Tab PO 650 mg Q6HR PRN Administration Mild Pain Albuterol Sulfate 2.5 mg 03/01/19 20:10 03/06/19 15:31 Ventolin Nebulized INHALATION 2.5 mg Q4H PRN Administration sob Allopurinol 100 mg 03/01/19 20:10 Zyloprim PO HS PRN gout Amiodarone HCl 200 mg 03/16/19 16:00 03/18/19 21:52 Cordarone PO 200 mg TID DEANDRA Administration Aspirin 81 mg 03/09/19 09:00 03/18/19 09:27 Aspirin PO 81 mg DAILY DEANDRA Administration Atorvastatin Calcium 40 mg 03/09/19 09:00 03/18/19 09:27 Lipitor PO 40 mg DAILY DEANDRA Administration Bisacodyl 10 mg 03/01/19 20:12 Dulcolax PO DAILY PRN Constipation Clopidogrel Bisulfate 75 mg 03/01/19 21:00 03/18/19 21:52 Plavix PO 75 mg HS DEANDRA Administration Furosemide 40 mg 03/16/19 21:00 03/18/19 21:51 Lasix IV 40 mg BID DEANDRA Administration Heparin Sodium (Porcine) 5,000 unit 03/10/19 21:00 03/18/19 21:51 Heparin SQ 5,000 unit Q12HR DEANDRA Administration Hydromorphone HCl 1 mg 03/08/19 15:04 03/15/19 10:05 Dilaudid IVP 1 mg Q3H PRN Administration Pain Ceftriaxone Sodium 2 gm/ 50 mls @ 100 mls/hr 03/09/19 17:00 03/18/19 09:26 Sodium Chloride IVPB 100 mls/hr Q24HR DEANDRA Administration Ampicillin Sodium/Sulbactam 100 mls @ 200 mls/hr 03/18/19 21:00 03/18/19 2 1:51 Sodium 3 gm/ Sodium Chloride IVPB 200 mls/hr Q12HR DEANDRA Administration Insulin Aspart 0 unit 03/14/19 07:30 03/19/19 06:10 Novolog SQ 1 unit ACHS DEANDRA Administration Protocol Ipratropium Crossnore 0.5 mg 03/02/19 08:00 03/18/19 20:20 Atrovent Nebulized INHALATION 0.5 mg RT-QID DEANDRA Administration Metoprolol Tartrate 100 mg 03/17/19 09:00 03/18/19 21:52 Lopressor PO 100 mg TID DEANDRA Administration Miscellaneous Information 1 each 03/11/19 14:10 Potassium Per Protocol MISCELLANE DAILY PRN Per Protocol Protocol Nitroglycerin 0.4 mg 03/01/19 16:04 Nitrostat SUBLINGUAL Q5M PRN Chest Pain Pantoprazole Sodium 40 mg 03/09/19 09:00 03/18/19 09:27 Protonix IVP 40 mg DAILY DEANDRA Administration Sodium Chloride 10 ml 03/05/19 21:00 03/18/19 21:52 Saline Flush IV 10 ml Q12HR DEANDRA Administration Objective - Vital Signs Vital signs: Vital Signs Temp 97.7 F 03/19/19 03:34 Pulse 82 03/19/19 03:34 Resp 18 03/19/19 03:34 BP 129/71 03/19/19 03:34 Pulse Ox 98 03/19/19 03:34 Intake & Output 03/18/19 03/19/19 03/19/19 18:59 06:59 18:59 Intake Total 210 120 Output Total 1200 850 Balance -990 -730 Weight 132.5 kg Intake: Oral 210 120 Output: Urine 1200 850 Other: Voiding Method Indwelling Catheter Indwelling Catheter # Voids 0 # Bowel Movements 1 ABP, PAP, CO, CI - Last Documented Arterial Blood Pressure 105/93 - Exam -GENERAL: The patient is intubated and sedated HEENT: Pupils are round and equally reacting to light. EOMI. No scleral icterus. No conjunctival pallor. Normocephalic, atraumatic. No pharyngeal erythema. No thyromegaly. CARDIOVASCULAR: S1 and S2 present. No murmurs, rubs, or gallops. PULMONARY: Chest is clear to auscultation, no wheezing or crackles. ABDOMEN: Soft, nontender, nondistended, normoactive bowel sounds. No palpable organomegaly. MUSCULOSKELETAL: No joint swelling or deformity. EXTREMITIES: No cyanosis, clubbing, or pedal edema. NEUROLOGICAL: Gross neurological examination did not reveal any focal deficits. SKIN: No rashes. no petechiae. - Labs CBC & Chem 7: 03/19/19 06:31 03/19/19 06:31 Labs: Abnormal Lab Results - Last 24 Hours (Table) 03/18/19 03/18/19 03/18/19 Range/Units 11:52 17:01 20:45 WBC (3.8-10.6) k/uL RBC (4.30-5.90) m/uL Hgb (13.0-17.5) gm/dL Hct (39.0-53.0) % MCHC (31.0-37.0) g/dL RDW (11.5-15.5) % Neutrophils # (1.3-7.7) k/uL Sodium (137-145) mmol/L Chloride (98-107) mmol/L BUN (9-20) mg/dL Creatinine (0.66-1.25) mg/dL Glucose (74-99) mg/dL POC Glucose (mg/dL) 141 H 137 H 135 H (75-99) mg/dL 03/19/19 03/19/19 03/19/19 Range/Units 06:07 06:31 06:31 WBC 16.1 H (3.8-10.6) k/uL RBC 3.94 L (4.30-5.90) m/uL Hgb 11.4 L (13.0-17.5) gm/dL Hct 37.6 L (39.0-53.0) % MCHC 30.4 L (31.0-37.0) g/dL RDW 17.2 H (11.5-15.5) % Neutrophils # 13.4 H (1.3-7.7) k/uL Sodium 147 H (137-145) mmol/L Chloride 108 H (98-107) mmol/L BUN 79 H (9-20) mg/dL Creatinine 2.43 H (0.66-1.25) mg/dL Glucose 132 H (74-99) mg/dL POC Glucose (mg/dL) 142 H (75-99) mg/dL Assessment and Plan Assessment: Cardiogenic and septic shock . Improved Acute on chronic systolic congestive heart failure with ejection fraction 20- 25%, on the top of history of severe ischemic cardiomyopathy. 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 Continue with antibiotics as per infectious disease recommendation, for 6 more weeks and currently he is on Unasyn and ceftriaxone, continue with oxygen and follow-up with pulmonary/critical team. Patient is on Lasix. . Follow-up cardiology recommendations. Follow-up neurology recommendation and his workup requested. Ordered. Follow-up WBC and creatinine.Labs and medication were reviewed. Continue same treatment. Continue with symptomatic treatment. Resume home medication. Monitor lytes and vitals. DVT and GI prophylaxis. Further recommendations of the clinical course of the patient DVT prophylaxis: Subcutaneous heparin GI Prophylaxis: Protonix Prognosis is guarded
[2019-03-19] MEDS: IPRATROPIUM 0.5 MG/2.5 ML NEBU INHALATION SCH ×4 (08:25→20:10)
[2019-03-19] MEDS: PANTOPRAZOLE 40 MG/10 ML VIAL IVP SCH (09:13)
[2019-03-19] MEDS: HEPARIN SODIUM,PORCINE 5,000 UNIT/ML 1 ML VIAL SQ SCH ×2 (09:13→22:39)
[2019-03-19] MEDS: FUROSEMIDE 10 MG/ML 4 ML VIAL IV SCH (09:13)
[2019-03-19] MEDS: METOPROLOL TARTRATE 50 MG TAB PO SCH ×3 (09:14→22:39)
[2019-03-19] MEDS: AMPICILLIN-SULBACTAM 3 GM in SODIUM CHLORIDE 0.9% 100 ML IVPB SCH ×2 (09:14→22:38)
[2019-03-19] MEDS: ATORVASTATIN 40 MG TAB PO SCH (09:14)
[2019-03-19] MEDS: AMIODARONE 200 MG TAB PO SCH ×3 (09:14→22:39)
[2019-03-19] MEDS: ASPIRIN 81 MG PO SCH (09:14)
--- NOTE | 2019-03-19 10:00 | CT ---
EXAMINATION TYPE: CT brain wo con DATE OF EXAM: 03/19/2019 COMPARISON: 03/13/2019 HISTORY: 73-year-old male AMS and AFIB TECHNIQUE: Examination was done in axial plane without intravenous contrast. Coronal and sagittal r econstructions performed. CT DLP: 2194.4 mGycm Automated exposure control for dose reduction was used. FINDINGS: There is no evidence of acute intracranial hemorrhage, acute ischemic changes, mass, mass-effect, or extra-axial fluid collection. There is no effacement of cerebral sulci or basal subarachnoid cister ns. There is no midline shift. Redd-white matter distinction is preserved. Moderate generalized cerebral cortical atrophy. Mild ventricular prominence secondary to central cere bral volume loss. Benign basal ganglionic calcifications. Paranasal sinuses and mastoid air cells well pneumatized. Ideally the nasal septum. Orbits and globes appear intact. IMPRESSION: [id number] generalized cerebral atrophy. No acute intracranial abnormality seen.
--- NOTE | 2019-03-19 10:43 | XR ---
EXAMINATION TYPE: XR abdomen 1V DATE OF EXAM: 03/19/2019 10:33 AM CLINICAL HISTORY: Abdominal distention. TECHNIQUE: 3 portable supine KUB images of the abdomen are obtained. COMPARISON: CT chest and abdomen August 30, 2018. FINDINGS: Scattered gas is seen in non-distended small small and large bowel loops. There is partial visualization of sternal wires as well as pacemaker/defibrillator leads and metallic aortic valve. Mu ltilevel spurring in the thoracolumbar spine. Vascular calcification abdominal aorta and right groin region. IMPRESSION: Overall nonspecific but favor nonobstructive bowel gas pattern.
--- NOTE | 2019-03-19 11:17 | IR ---
PICC LINE PLACEMENT: HISTORY: Infection requiring long-term antibiotic therapy PROCEDURE: Ultrasound and fluoroscopic guidance of PICC line placement. COMPLICATIONS: None ANESTHESIA: 1. 1% Lidocaine locally. FINDINGS/TECHNIQUE: The procedure was explained to the patient. The risks, complications, benefits and alternatives were discussed and any questions were answered. Informed consent was obtained. The patient was placed supine on the fluoroscopic table and prepped and draped in the usual sterile [facility] ion. Utilizing a 21 gauge needle and sonographic and fluoroscopic guidance, access in the vein was achieved and there is placement of a 0.018 guidewire. The vein is patent. A 4-F sheath was placed o monserrat the guidewire. The guidewire and dilator were removed and a 4-F. PICC line was placed through th e sheath with the tip at the level of the SVC. The sheath was removed, the catheter was flushed and sutured into position. The patient was stable throughout the procedure and remained stable upon disc harge from the Department of Radiology. The vein puncture was patent under ultrasound. A browning scale image was obtained to document patency of the vein punctured. All elements of the maximal barrier technique were utilized. FLUOROSCOPY TIME: 0.2 minutes and one image submitted IMPRESSION: Successful PICC line placement under ultrasound and fluoroscopic guidance.
[2019-03-19 11:54] LABS: Glucose,Whole Blood 126 mg/dL (75-99)
--- NOTE | 2019-03-19 12:02 | PN ---
PROGRESS NOTE Mr. Tiwari is in atrial fib, rate control is much better today. He is going to have a PICC line and will probably be discharged soon after with antibiotics to be continued. He has prosthetic valve endocarditis, hemodynamically stable, ischemic cardiomyopathy with a biventricular ICD. Blood pressure is good. Heart rate is better, although he is in atrial fib. S1, S2 heard normally. Ejection systolic murmur is audible. Lungs are clear. Abdomen and lower extremity exam is unchanged. MMODL / IJN: [id number] /
[2019-03-19 16:40] LABS: Glucose,Whole Blood 132 mg/dL (75-99)
[2019-03-19 21:23] LABS: Glucose,Whole Blood 173 mg/dL (75-99)
[2019-03-19] MEDS: CLOPIDOGREL 75 MG TAB PO SCH (22:39)
[2019-03-20] MEDS: ALBUTEROL NEBULIZED 2.5 MG/3 ML INHALATION PRN (00:28)
[2019-03-20 06:24] LABS: Glucose,Whole Blood 135 mg/dL (75-99)
[2019-03-20] MEDS: INSULIN ASPART (NovoLOG) 100 UNIT/ML VIAL SQ SCH ×4 (06:34→22:57)
--- NOTE | 2019-03-20 08:30 | EEG ---
ELECTROENCEPHALOGRAM REPORT PROCEDURE DATE: 03/19/2019. ELECTROENCEPHALOGRAM (EEG) REPORT: TECHNIQUE: A routine 18 channel EEG was performed with video using the 10/20 international electrode placement system. HISTORY: Atrial fibrillation, non ST elevation MS. Patient admitted and sent to the [facility] for an occluded RCA. Neurology consulted for altered mental status, encephalopathy. CURRENT MEDICATIONS: Protonix, potassium chloride, metoprolol, Atrovent, insulin, hydromorphone. STUDY DURATION: 20 minutes. FINDINGS: BACKGROUND: The background activity consisted of poorly modulated 3 to 5 hertz waveforms. ACTIVATION: Hyperventilation: Not performed. Photic stimulation: Not performed. Sleep: Drowsy. ABNORMALITIES: 1. Diffuse synchronous and asynchronous 3 to 5 hertz slow wave activity was seen at times more frontally predominant. 2. Occasional moderate voltage triphasic waves were seen. IMPRESSION: Abnormal EEG. The occasional triphasic waves mentioned above are not epileptiform in nature. Triphasic waves can be seen in the setting of a metabolic encephalopathy. The diffuse synchronous and asynchronous theta delta range slowing mentioned above is not epileptiform in nature. In combination, these findings indicate moderate to severe diffuse cerebral dysfunction as may be seen in a toxic metabolic encephalopathy. No seizures were recorded. No epileptiform activity was present. MMODL / IJN: [id number] / [facility]Jay
[2019-03-20] MEDS: IPRATROPIUM 0.5 MG/2.5 ML NEBU INHALATION SCH ×2 (08:43→11:57)
[2019-03-20] MEDS: HEPARIN SODIUM,PORCINE 5,000 UNIT/ML 1 ML VIAL SQ SCH ×2 (09:24→22:34)
[2019-03-20] MEDS: ASPIRIN 81 MG PO SCH (09:24)
[2019-03-20] MEDS: ATORVASTATIN 40 MG TAB PO SCH (09:24)
[2019-03-20] MEDS: METOPROLOL TARTRATE 50 MG TAB PO SCH ×3 (09:24→22:34)
[2019-03-20] MEDS: PANTOPRAZOLE 40 MG/10 ML VIAL IVP SCH (09:24)
[2019-03-20] MEDS: AMIODARONE 200 MG TAB PO SCH ×3 (09:37→22:34)
[2019-03-20 10:20] LABS: Anisocytosis Slight; Basophils # (A) 0.1 k/uL (0-0.2); Basophils % (A) 1 %; Eosinophils # (A) 0.1 k/uL (0-0.7); Eosinophils % (A) 1 %; HGB 11.7 gm/dL (13.0-17.5); Hypochromasia Moderate; Lymphocytes # (A) 1.2 k/uL (1.0-4.8); Lymphocytes % (A) 10 %; MCHC 29.3 g/dL (31.0-37.0); MCV 95.3 fL (80.0-100.0); Macrocytosis Slight; Mean Platelet Volume 9.5; Monocytes # (A) 0.6 k/uL (0-1.0); Monocytes % (A) 5 %; Neutrophils % (A) 83 %; Platelet Count 276 k/uL (150-450); RDW 19.1 % (11.5-15.5); WBC 12.1 k/uL (3.8-10.6)
[2019-03-20 10:52] LABS: Calcium 9.1 mg/dL (8.4-10.2); Potassium 3.6 mmol/L (3.5-5.1)
[2019-03-20 10:58] LABS: Glucose,Whole Blood 126 mg/dL (75-99)
[2019-03-20] MEDS: AMPICILLIN-SULBACTAM 3 GM in SODIUM CHLORIDE 0.9% 100 ML IVPB SCH ×2 (11:04→22:33)
[2019-03-20] MEDS ORDERED: DEXTROSE 5%-0.2% NACL 1,000 ML IV SCH (13:00)
--- NOTE | 2019-03-20 14:27 | PN ---
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 He is doing well. Blood cultures are negative. Atrial fib rate is much better. Hemodynamically stable. However, he is a bit confused. He had a PICC line yesterday. He may be discharged to a long-term facility. Vitals are stable. S1, S2 with a irregular rate rhythm noted. Short systolic murmur noted. Lungs reveal improved air entry. Abdomen and lower extremity exam otherwise is unchanged. From a cardiac standpoint, no intervention other than amiodarone and Lopressor and he can be discharged and will see Dr. Juarez as an outpatient. MMODL / IJN: [id number] /
--- NOTE | 2019-03-20 14:38 | P.PN ---
Subjective This is a pleasant 73 years old male with past medical history of coronary artery disease patient , , heart failure, asthma, GERD, hyperlipidemia, h ypertension, osteoarthritis, valvular heart disease. Patient was admitted with non-STEMI, he underwent cardiac cath on 03/03/2019, showing patent stents and coronaries. Also patient underwent elective EP study yesterday and status post AICD placement, patient is currently in the ICU intubated and could not provide information, he was extubated for short time before he needed reintubation. Information was taken from the staff at the medical records as patient cannot contribute to history . He has low ejection fraction 20-25%. Patient is obese and he needed low dose of pressors. He has distended abdomen, possibly from fat. No focal neurological findings. Also he has positive blood culture with enterococcus and trending up leukocytes. Infectious disease was consulted, patient is currently on Zosyn. Also patient creatinine is trending up however patient is making reasonable urine output, he was on Lasix drip but this was stopped. 03/07/2019 Patient in the ICU intubated and sedated, his vitals with blood pressure 130/54, and he is saturating 98%. His WBC is back to normal at 10.5. Creatinine is at 2.14 with slight improvement down from 2.6 yesterday. He has several blood culture positive for enterococcus. Chest x-ray showing no significant change. Patient has been evaluated by software security architect and forming acid dumper, forming acid dumper considering LISSET if blood culture remains positive. Patient also was started on gentamicin and Unasyn as per infectious disease recommendation 03/08/2019 Patient remains in the ICU, he still intubated and sedated. Blood pressure 108/52, saturating 96%, heart rate is 70. K, hemoglobin is stable at 10.4, platelets are within normal limits. Creatinine is improving gradually down to 1.7, electrolytes included sodium and potassium are within normal limits, sugar is running between 129-155. Magnesium is elevated at 2.5,. He has several bloo d culture that's positive for group D enterococcus faecalis, cardiology R following the case and the plan is for transesophageal echocardiogram tomorrow to rule out endocarditis 03/09/2019 Patient is ICU intubated and sedated, patient is planned to go for transesophageal echocardiogram today to rule out endocarditis in view of his persistent bacteremia/septicemia. Patient remains currently on Unasyn. Patient is slightly bradycardic at 57-60, he had low-grade temperature yesterday of 100.2, blood pressure 102/58, lap showing mild leukocytosis of 12.3 K, hemoglobin is stable. Creatinine is improving to 1.75. ABGs showed pH of 7.4, pCO2 42 which are within normal limits, pO2 is 120. Repeat blood cultures are pending, repeat chest x-ray from today showing fluid overload with interstitial edema with possible atelectasis. 03/10/2019 Patient remains in the ICU intubated and sedated, yesterday he had a LISSET which showing low ejection fraction around 20% with agitation note dictated on the aortic valve. Also patient noted to bleed easily given from subcutaneous injection site, currently is on subcu heparin to 8 which is lower to every 12 this morning, he is also on aspirin and Plavix, platelets are normal. We don't to check PT and INR and PTT today. Last night patient was started on Cardizem drip for better control of his blood pressure and heart rate and blood pressure. Patient is followed closely by cardiology and rectal care team. Prognosis is extremely poor 03/11/2019 Patient remains in the ICU, he is intubated and sedated. Patient failed weaning trials today by the pulmonary team. Patient is still tachycardic and he was started on Cardizem drip today, blood pressure 111/66. mild leukocytosis of 11.4 k, hemoglobin 10.2, sodium is 148, creatinine 1.8, compared to 1.7 yesterday. repeat blood cultures still shown enterococcus. the patient remains on unasyn and ceftriaxone currently with infectious disease followed the case closely. patient is following closely by cardiology and pulmonary/critical care team. prognosis remains guarded 03/12/2019 Patient remains in the ICU in critical condition, he is intubated and sedated however he is undergoing wound and a trial which has been failed previously. Blood pressure on the low side 66/38, wbc of 10.2 k, hemoglobin 10.1. his creatinine is stable at 1.7, high sodium on 148. Sugar is controlled at the r bo of 120-143. Repeat blood culture from 03/10 and 03/09 still pending which shows no growth so far. Repeat chest x-ray showed stable findings. His been followed closely by several consultants including cardiology, critical care and infectious disease recommended to continue with Unasyn and ceftriaxone for 6 weeks. Subjective 03/16/2019 Patient remains in the ICU. Is a status post extubation. Currently he is on oxygen nasal cannula 6 L/m with his oxygen saturation at 99%. Rest of vitals show a respiratory rate of 22-25, with tachycardia 108 07/11/2013, rest of vitals stable and patient is afebrile for the last few days. Labs showing resistant leukocytosis at 16.8 K, creatinine stable at 2.0. He has no chest pain, no headache. No change in bowel habits. He remains on Unasyn and ceftriaxone as per infectious disease recommendation, his Lasix was lowered to 40 mg IV daily, and he is off the amiodarone drip and currently is on amiodarone pills at 200 mg twice daily. Patient is able to eat and drink so D5W was stopped. Pain is controlled. 03/17/2019 Patient gives improving, he is awake and oriented, he knows why he is in the hospital. He feels generally weak and still short of breath. He is saturating 78-88% on room air, however patient is non-adherent to his oxygen therapy and he keeps taken off his nasal cannula. His saturation goes up to 97% on 4 L oxygen via high flow cannula. No chest pain. Slightly tachycardic. Blood pressure s table. Still have leukocytosis of 15.9 and creatinine stable at 2.1. Sugar control. Patient remains on Unasyn and ceftriaxone and he will need a PICC line and prolonged antibiotic course. ECF is recommended for patient upon discharge. Also is on Lasix 40 mg twice daily and amiodarone 200 mg twice daily basis metoprolol 75 mg 3 times daily. Pain controlled Discussed with the staff today 03/18/2019 Patient was transported to the select unit at the general medical floor. He is awake and alert, he still short of breath with decreased air entry in both sides, however he denies chest pain, his Kassy to tolerate his diet. His Vitas looks stable. Patient has persistent leukocytosis at 15.9 K, creatinine is 2.3. And sugars controlled. Patient remains on Unasyn and Rocephin per infectious disease team with cardiology and pulmonary team R following closely. 03/19/2019 Family concern that the patient was still not at his baseline mental status and they were asking for neurology evaluation. Neurologist recommended repeat CT of the head, EEG, with lab work including TSH ammonia and vitamin B12. Patient is still short of breath with abdominal distention. He is profoundly weak and yesterday did not participate with physical therapy. Cardiology and infectious disease R following the case closely and they cleared the patient for PICC line as he has negative blood culture on repeat testing. On for him for prolonged antibiotics for 6 weeks. Lap showing persistent leukocytosis of 16.1 K, creatinine 2.4 and sodium 147. Patient is followed closely by pulmonary and renal team. Patient has couple of loose bowel movements. We will order abdominal x-rays 03/20/2019 Patient in the general medical floor, is awake and oriented to place but not to time or person, he answers some questions appropriately and follow commands. He does not look in distress. He denies chest pain or dyspnea. His Vitas looks stable however he still feels a bit tachypneic, his saturating 100% on 2 L oxygen via nasal cannula. He still have mild leukocytosis of 16.1 K creatinine is 2.4, that is from yesterday repeat labs from today showing hypernatremia with sodium 151, patient was started on D5W.. Diaz catheter is in place. PICC line was placed yesterday while I J line was removed. EEG showing no seizure-like activity but rather he has metabolic encephalopathy. Workup of B12, ammonia and TSH/T4 are nonrevealing for his mental status change. Patient is followed closely by several consultants including cardiology, pulmonary, nephrology and urology. Infectious disease help her with managing his antibiotics. Patient will need to ECF for rehab and antibiotic therapy upon discharge Objective - Vital Signs Vital signs: Vital Signs Temp 97.0 F L 03/20/19 04:00 Pulse 94 03/20/19 08:55 Resp 28 H 03/20/19 04:00 BP 119/82 03/20/19 04:00 Pulse Ox 100 03/20/19 04:00 Intake & Output 03/19/19 03/20/19 03/20/19 18:59 06:59 18:59 Intake Total 640 Output Total 600 Balance 640 -600 Intake: IV 170 Ampicillin-Sulbactam 3 gm 100 In Sodium Chloride 0.9% 100 ml @ 200 mls/hr IVPB Q6H [facility] Rx#:[id number] KVO 70 Intake, IV Titration 50 Amount cefTRIAXone 2 gm In 50 Sodium Chloride 0.9% 50 ml @ 100 mls/hr IVPB Q24HR [facility] Rx#:[id number] Oral 420 Output: Urine 600 Other: Voiding Method Indwelling Catheter Indwelling Catheter # Voids 700 # Bowel Movements 0 ABP, PAP, CO, CI - Last Documented Arterial Blood Pressure 105/93 - Exam -GENERAL: The patient is intubated and sedated HEENT: Pupils are round and equally reacting to light. EOMI. No scleral icterus. No conjunctival pallor. Normocephalic, atraumatic. No pharyngeal erythema. No thyromegaly. CARDIOVASCULAR: S1 and S2 present. No murmurs, rubs, or gallops. PULMONARY: Chest is clear to auscultation, no wheezing or crackles. ABDOMEN: Soft, nontender, nondistended, normoactive bowel sounds. No palpable organomegaly. MUSCULOSKELETAL: No joint swelling or deformity. EXTREMITIES: No cyanosis, clubbing, or pedal edema. NEUROLOGICAL: Gross neurological examination did not reveal any focal deficits. SKIN: No rashes. no petechiae. - Labs CBC & Chem 7: 03/20/19 09:23 03/20/19 09:23 Labs: Abnormal Lab Results - Last 24 Hours (Table) 03/19/19 03/19/19 03/19/19 Range/Units 06:31 11:42 16:30 POC Glucose (mg/dL) 126 H 132 H (75-99) mg/dL Vitamin B12 1815.0 H (200.0-944.0) pg/mL 03/19/19 03/20/19 Range/Units 21:19 06:20 POC Glucose (mg/dL) 173 H 135 H (75-99) mg/dL Vitamin B12 (200.0-944.0) pg/mL Assessment and Plan Assessment: Cardiogenic and septic shock . Improved Acute on chronic systolic congestive heart failure with ejection fraction 20- 25%, on the top of history of severe ischemic cardiomyopathy. 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, secondary to enterococcus infection Systemic inflammatory response with leukocytosis and tachypnea Metabolic encephalopathy, mostly secondary to above Mild hypernatremia Possible None STEMI on admission, status post cardiac cath showing patent stents Acute kidney injury, secondary to shock states, goes more with cardiorenal syndrome acute hypoxic respiratory failure, status post intubation and mechanical ventilation History of coronary artery disease History of valvular heart disease Hypertension Hyperlipidemia COPD/asthma Plan: This is a 73 years old male who presents with septic shock secondary to SBE. Continue with antibiotics as per infectious disease recommendation, for 6 more weeks and currently he is on Unasyn and ceftriaxone, continue with oxygen and follow-up with pulmonary/critical team. Patient is on Lasix. . Follow-up cardiology recommendations. Follow-up neurology recommendation and his workup requested. Ordered. Follow-up WBC and creatinine.Labs and medication were reviewed. Continue same treatment. Continue with symptomatic treatment. Resume home medication. Monitor lytes and vitals. DVT and GI prophylaxis. Further recommendations of the clinical course of the patient DVT prophylaxis: Subcutaneous heparin GI Prophylaxis: Protonix Prognosis is guarded
[2019-03-20] MEDS: DEXTROSE 5% IN WATER 1,000 ML IV SCH (14:46)
--- NOTE | 2019-03-20 15:57 | P.PN ---
Subjective Progress Note Date: 03/20/19 Principal diagnosis: Acute hypoxic respiratory failure secondary to cardiogenic shock and septic shock, acute endocarditis This is a 71-year-old male patient with known history of ischemic cardiomyopathy along with known history of coronary artery disease and previous aortic valve replacement, AVR, and previous coronary artery bypass surgery, who presented to the hospital because of chest pain and non-STEMI. The patient has had previous catheterizations with stenting done in the distal left main as well as the proximal circumflex. He has a chronically totally occluded RCA. As mentioned, the patient was admitted with chest pain or shortness of breath and acute non-STEMI. The patient underwent another cardiac catheterization and the patient was found to have taken stent to the distal left mainstem to proximal circumflex, patent BELTRAN to LAD, chronic totally occluded RCA. Recommendations were mainly to maximize medical management. The patient was being treated for congestion heart failure. He was receiving Lasix drip and he was having ongoing orthopnea. He was taken yesterday to [facility] and the patient was given biventricular pacing/AICD. Noted postop, the patient was extubated. He became short of breath and went into significant amount of respiratory distress and within 10 minutes she had to be reintubated. He was brought into the intensive care unit intubated on a mechanical ventilator. Initial blood gases showed a pH of 7.28 with a pCO2 of 51 and pO2 of 234. Necessary vent changes were done. The most recent blood gas showed a pH of 7.48 with a pCO2 of 28 and pO2 of 229. The morning vent settings include a tidal volume 400 with a rate of 18 and FiO2 of 40% with 5. The setting was adjusted based on the most recent blood gas. I noted that the patient is also on pressors and overnight the patient has required norepinephrine infusion and currently is running at 0.1 mcg/kg per minute. The patient is also on Lasix drip at 10 mg an hour. He is producing urine output. However, the patient has developed an acute kidney injury. Cr eatinine was normal at the time of admission on 02/27/2019 and there has been progressive rise in the creatinine which is up to 2.6 at this point in time. He was he was developing fevers with a temperature 11.6 on 03/04/2019. The patient has blood culture sent a blood culture came back positive for enterococcus group D. The patient was on cefazolin. IV Zosyn was added by the primary care team. This morning, the patient is sedated with propofol is currently running at 50 mics. His, comfortable. He is producing urine output. Her net fluid balance is -642 mL for yesterday. His cardiac rhythm is paced. His white cell count is 19.4. He is obviously septic condition with a positive blood culture. UA the time of admission was negative. He has a Diaz catheter in place. Abdomen is soft. His umbilical hernia. Surgical wound site over the left biventricular pacemaker is dry clean and intact. No significant orotracheal secretions. Chest x-ray from today shows cardiomegaly and lower lobe consolidation as the patient is a left lower lobe consolidation of the right upper lobe! The echocardiogram at shown an ejection fraction of 20-25%. There is moderate concentric left ventricular hypertrophy. There is severe global hypokinesis. No pericardial effusion. The peak gradient across the aortic valve was 35 mmHg. It is a normal functioning bioprosthetic valve. There is moderate mitral regurgitation. Mild pulmonary hypertension. on 03/07/2019 the patient remains sedated and intubated on mechanical ventilator. The patient is on propofol for sedation. The patient is also on a mechanical ventilator on assist control mode with a tidal volume of 000 and the rate of 18 with an FiO2 of 40% and PEEP of 5. The chest x-ray from today shows stable findings and there is left lower lobe consolidation/effusion. ET tube is in a good location. The left ear showed a pH of 7.44 with a pCO2 of 34 and pO2 of 131. Based on this, there is a component of respiratory alkalosis and I dropped a respiratory rate down to 14. The telephone was kept at 500 for now. I took this patient off the Lasix therapy yesterday as the patient's CVP was running low and the patient was also developing acute kidney injury. Today CVP is also low measuring as high as 4-5 millimeters of mercury. Based on that, the patient was started on oral Lasix set of IV Lasix for cardiology. He is prod ucing adequate amount of urine output. Creatinine is also improving and is down to 2.1. The patient is afebrile. The patient was seen by infectious disease. Antibiotic adjustments were done and the patient was placed on a combination of Unasyn and gentamicin. No clear indication for endocarditis. The patient has 3 positive blood culture that was positive for E faecalis, in the patient was si mplified back to Unasyn and gentamicin was discontinued as the patient was found to be having a Enterococcus faecalis resistant to gentamicin.. The patient is producing adequate amount of urine output. He is still on pressors and the present doses been weaned down to 0.07 micrograms per kilogram per minute of norepinephrine infusion. The patient will be started on enteral feeding for nutritional support. Cardiology is on the case. Cardiac rhythm remains paced. No significant electrolyte imbalance in the patient's white cell count is down to 10.5. 03/08/2019, the patient remains intubated on a mechanical ventilator. The patient remains hemodynamically unstable requiring pressors and the norepinephrine infusion is running at 0.08 mcg/kg per minute. He is also on Prinivil at 40 mics per KG. The patient a mechanical ventilator on assist control mode with a tidal volume of 500 and rate of 18 with an FiO2 of 40% and a PEEP of 5. Chest x-ray is unchanged compared to yesterday and there are some white pulmonary vessel congestion. The patient is producing 25 mL of urine output on an hourly basis. Net fluid balance is positive to 11 mL over the past 24 hours. He is currently on oral Lasix. He is also on norepinephrine infusion. He is on enteral feeding for nutritional support. He is receiving before for sedation. Note that all of the blood cultures came back positive for Enterococcus faecalis. The patient remains on IV Unasyn. Follow-up cultures were obtained to make sure there is no ongoing bacteremia. There is a high likely what that it there may be a component of infective endocarditis. The patient will need a LISSET to evaluate this further. His cardiac rhythm is paced. The fibrillator pocket is clean and intact at this point in time. As for his continued kidney injury, the patient's creatinine is improving and the creatinine is down to 1.72. The white cell count is also down to 10.5 and the patient is responding to IV Unasyn for now. Reevaluated today on 03/09/2019, patient remains on mechanical ventilation, he is still on norepinephrine at 0.05 mcg/kg/m, still on propofol at 50 mcg/kg/m. He is on mechanical ventilation, assist control rate of 18, FiO2 is 40%, PEEP of 5. Tidal volume is 500. Transesophageal echocardiogram is suspicious for vegetations involving the aortic bioprosthetic valve there was also evidence of thickened mitral valve leaflets with moderate mitral regurgitation. His LV function was noted to be impaired ejection fraction of 20%. ABG this morning showed a pO2 of 120 pCO2 of 42 pH of 7.42 11 lites are normal renal profile is abnormal with BUN of 42 creatinine of 1.75 WBC count is 12.3 hemoglobin is 10.2. Chest x-ray is suspicious for mild interstitial edema and small bilateral pleural effusions. There is also some retrocardiac atelectasis. Patient is sedated, on mechanical ventilation, I have no plans to wean the patient today since LISSET was scheduled to be done shortly after I evaluated the patient. Patient was reevaluated today on 03/10/2019, remains on mechanical ventilation, his ventilator settings are assist control rate of 14 FiO2 is 40% PEEP is 5 tidal volume is 500. Patient is on Cardizem drip as per cardiology 5 mg per hour, his also on metoprolol, and he is on norepinephrine at 0.05 mcg/kg/m. Propofol is 25 mcg/kg/m. Chest x-ray showed cardiomegaly and prominent pulmonary vasculature with minimal basilar atelectasis. ABG showed a pO2 of 117 pCO2 of 43 pH of 7.45. WBC count is 14.8 hemoglobin is 10.5. Electrolytes are relatively normal. Renal profile showed a BUN of 42 creatinine of 1.70. Patient remains sedated, however I plan to hold his sedation today, and hopefully assess mental status and decide whether we can proceed with any further weaning trials. Family is at bedside and they were updated on his condition and on the fact that he has endocarditis. Antibiotics were addressed by Dr. Nguyễn, patient is now on Unasyn. He also remains on Rocephin. Reevaluated today on 03/11/2019, remains in the ICU on mechanical ventilation. His ventilator settings are assist control rate of 14, tidal volume is 500 FiO2 of 35% PEEP is 5. Remains on propofol at 30 mcg/kg/m, he is off pressors. ABG this morning showed a pO2 of 103 pCO2 of 39 pH of 7.50. Electrolytes are normal however his BUN is 51 creatinine is 1.84. WBC count is 11.4 hemoglobin is 10.2. Patient remains on nutritional support via enteral feeding. Remains on antibiotics for his underlying endocarditis as per infectious disease. Yesterday the patient was given a sedation interruption, and a trial of weaning, however he was extremely agitated, restless, and could not go on to wean or extubated the patient. This would be reattempted again today. Reevaluated today in the ICU on 03/12/2019, patient remains on mechanical ventilation, his ventilator settings are tidal volume of 500 assist control rate of 14 FiO2 35% PEEP of 5. Patient remains on propofol, presently off norepinephrine, patient was given a weaning trial yesterday, however he became extremely tachycardic, and restless agitated. Today I plan to wean the patient slowly on Precedex to be started after stopping propofol. Patient will be awakened and will be given definitely a weaning trial today. Depending on how he does on pressure support and CPAP, may or may not proceed to full extubation. Chest x-ray is showing mild congestive changes. ABG this morning showed a pO2 of 77 pCO2 of 45 pH of 7.48 electrolytes showed elevated sodium of 148 BUN is 61 creatinine 1.78. Bicarb is 34 WBC count is 10.2 hemoglobin is 10.1. Patient remains on antibiotics, not requiring pressors at this point, has been intermittently on and off norepinephrine Reevaluated today on 03/13/2019, patient was extubated from mechanical venti lation yesterday, patient is presently on high flow nasal cannula, O2 saturation is in the mid 90s, tolerated the extubation well since yesterday. Chest x-ray continues to show evidence of mild congestive heart failure. However the patient has elevated sodium today, it is 153, and I have switched his IV fluid to D5W, will hold on the Lasix for now, and he will receive D5W at 50 mL per hour. Patient received Lasix earlier today by nephrology. Patient remains on antibiotics for his endocarditis. And he is hemodynamically stable at present. Reevaluated today on 03/14/2019, patient remains off mechanical ventilation, on high flow nasal cannula, O2 saturation is excellent. Chest x-ray showed mild interstitial edema. Patient continues to have intermittent episodes of confusion and disorientation. CT of the head is negative for septic emboli involving the brain. Sodium remains a bit elevated, and the process of correcting his sodium with D5W. Lasix is still on hold. BUN is 69 creatinine is 1.99 sodium today is 150. is at bedside, and she was updated on his condition, and explained to her that the patient may have metabolic encephalopathy. Related to his hypernatremia and sepsis with bacteremia. Patient was reevaluated today on 03/15/2019, seems to be doing fairly well, remains off mechanical ventilation,he is steadily improving, Denies any specific complaints,his mental status seems to be intermittently waxing and waning. But today he seems to be more appropriate.chest x-ray continues to show evidence of interstitial edema/CHF, his electrolytes are improving sodium is down to 146. BUN is 75 creatinine is 2.19. ABG last night showed a pO2 of 61 pCO2 48 pH of 7.43, hence his FiO2 was increased and he is presently on 6 L nasal cannula. On 03/17/2019 patient seen in follow-up in the intensive care unit, he is awake and alert, in no acute distress, he is currently on room air, with a pulse ox of 92%, maintenance IV fluids are present and normal saline at a rate of 10 ML per hour, denies any worsening dyspnea, lung sounds reveal a few scattered wheezes, no rhonchi, no rales. No altered mentation, no fever or chills, vital signs are stable. Follow up blood cultures are negative from 03/09/2019, and 03/10/2019. Patient is a combination of Unasyn and Rocephin for antibiotic coverage. No acute events overnight, today's labs have been reviewed, showing blood cell count of 15.9, hemoglobin of 11.1, electrolytes within normal limits, renal profile is stable, with BUN of 75 and creatinine of 2.10. The patient is seen today 03/18/2018 in follow-up on the selective care unit. He is currently resting comfortably in bed. Awake and alert in no acute distress. Maintaining good O2 saturations up to 100% on 2 L/m per nasal cannula. He's been afebrile. Hemodynamically stable. Follow-up blood cultures reveal no growth. White count 15.9. Hemoglobin 11.4. Creatinine 2.35. He remains on ceftriaxone and Unasyn. The patient is seen today 03/20/2019 in follow-up on the selective care unit. He is still somewhat altered. Follow-up computed tomography scan of the brain revealed mild to moderate generalized cerebral atrophy. No acute intracranial abnormality seen. EEG revealed moderate diffuse cerebral dysfunction as may be seen in a toxic metabolic encephalopathy. No seizures recorded. No epileptiform activity was present. He is maintaining O2 saturations in the 90s on 2 L/m per nasal cannula. No acute pulmonary distress. Follow-up blood cultures had revealed no growth after initial cultures positive for Enterococcus faecalis. He remains on ceftriaxone and Unasyn. White count 12.1. Hemoglobin 11.7. Creatinine 2.16. Sodium 151. Potassium 3.6. BUN 76. Objective - Vital Signs Vital signs: Vital Signs Temp 98.4 F 03/20/19 08:00 Pulse 92 03/20/19 12:08 Resp 18 03/20/19 08:00 BP 133/99 03/20/19 08:00 Pulse Ox 98 03/20/19 08:00 Intake & Output 03/19/19 03/20/19 03/20/19 18:59 06:59 18:59 Intake Total 640 720 Output Total 600 Balance 640 -600 720 Weight 132.5 kg Intake: IV 170 Ampicillin-Sulbactam 3 gm 100 In Sodium Chloride 0.9% 100 ml @ 200 mls/hr IVPB Q6H DEANDRA Rx#:[id number] KVO 70 Intake, IV Titration 50 Amount cefTRIAXone 2 gm In 50 Sodium Chloride 0.9% 50 ml @ 100 mls/hr IVPB Q24HR DEANDRA Rx#:[id number] Oral 420 720 Output: Urine 600 Other: Voiding Method Indwelling Catheter Indwelling Catheter Indwelling Catheter # Voids 700 # Bowel Movements 0 1 ABP, PAP, CO, CI - Last Documented Arterial Blood Pressure 105/93 - Exam GENERAL EXAM: Alert, but slow to respond, 73-year-old obese male patient, on 2 L/m per nasal cannula, comfortable in no apparent distress. HEAD: Normocephalic/atraumatic. EYES: Normal reaction of pupils, equal size. Conjunctiva pink, sclera white. NOSE: Clear with pink turbinates. THROAT: No erythema or exudates. NECK: No masses, no JVD, no thyroid enlargement, no adenopathy. CHEST: No chest wall deformity. Symmetrical expansion. LUNGS: Equal air entry with a few scattered rhonchi, no rales CVS: Regular rate and rhythm, normal S1 and S2, no gallops, no murmurs, no rubs ABDOMEN: Soft, obese, nontender. No hepatosplenomegaly, normal bowel sounds, no guarding or rigidity. EXTREMITIES: No clubbing, no edema, no cyanosis, 2+ pulses and upper and lower extremities. MUSCULOSKELETAL: Muscle strength and tone normal. SPINE: No scoliosis or deformity SKIN: No rashes CENTRAL NERVOUS SYSTEM: Slow to respond. Some altered mental status., tone is normal in all 4 extremities. PSYCHIATRIC: Alert and oriented -3. Appropriate affect. Intact judgment and insight. - Labs CBC & Chem 7: 03/20/19 09:23 03/20/19 09:23 Labs: Abnormal Lab Results - Last 24 Hours (Table) 03/19/19 03/19/19 03/20/19 Range/Units 16:30 21:19 06:20 WBC (3.8-10.6) k/uL RBC (4.30-5.90) m/uL Hgb (13.0-17.5) gm/dL MCHC (31.0-37.0) g/dL RDW (11.5-15.5) % Neutrophils # (1.3-7.7) k/uL Sodium (137-145) mmol/L Chloride (98-107) mmol/L BUN (9-20) mg/dL Creatinine (0.66-1.25) mg/dL Glucose (74-99) mg/dL POC Glucose (mg/dL) 132 H 173 H 135 H (75-99) mg/dL 03/20/19 03/20/19 03/20/19 Range/Units 09:23 09:23 10:56 WBC 12.1 H (3.8-10.6) k/uL RBC 4.20 L (4.30-5.90) m/uL Hgb 11.7 L (13.0-17.5) gm/dL MCHC 29.3 L (31.0-37.0) g/dL RDW 19.1 H (11.5-15.5) % Neutrophils # 10.0 H (1.3-7.7) k/uL Sodium 151 H (137-145) mmol/L Chloride 112 H (98-107) mmol/L BUN 76 H (9-20) mg/dL Creatinine 2.16 H (0.66-1.25) mg/dL Glucose 144 H (74-99) mg/dL POC Glucose (mg/dL) 126 H (75-99) mg/dL Assessment and Plan Assessment: Assessment: 1 acute hypoxic respiratory failure secondary to cardiogenic shock and septic shock. Patient was extubated successfully on 03/12/2019. 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 3 severe LV dysfunction and cardiomyopathy, ischemic in nature, ejection fraction of 20-25% post-insertion of AICD. 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 6 septic shock secondary to enterococcal infection 7 acute kidney injury secondary to sepsis, ATN, and possibly contrast nephropathy 8 history of underlying COPD, hypertension, hyperlipidemia, obesity, and generalized anxiety disorder. 9 hypernatremia , current sodium 141 10 acute metabolic encephalopathy secondary to electrolytes imbalance, hypernatremia, and sepsis as well as bacteremia. Plan: The patient was seen and evaluated by Dr. Mehta. He remains somewhat altered. Secondary to suspected hypernatremia as well as the acute metabolic encephalopathy. EEG and computed tomography scan of the brain results were reviewed. Neurology and nephrology on the case. We'll continue to follow and make further recommendations based on his clinical status. I, the cosigning physician, performed a history & physical examination of the patient. Lungs sounds with few scattered rhonchi. Maintaining good O2 saturations in the 90s on 2 L/m per nasal cannula. I discussed the assessment and plan of care with my nurse practitioner, Lindsey Juárez. I attest to the above note as dictated by her.
[2019-03-20] MEDS: IPRATROPIUM-ALBUTEROL 3 ML NEB INHALATION SCH ×2 (16:02→21:23)
[2019-03-20 16:54] LABS: Glucose,Whole Blood 152 mg/dL (75-99)
--- NOTE | 2019-03-20 18:24 | PN ---
PROGRESS NOTE Patient is seen for followup for acute kidney injury which is mainly ATN associated with sepsis, hypotension, hypoperfusion. Patient has also been on diuretics for CHF and volume overload. He had developed hypernatremia and was maintained on D5W, which was discontinued. It appears that his sodium is climbing up again. It is at 151 today. On examination today, patient is comfortable. He was seen this morning. Blood pressure was 130/78, heart rate of 90 per minute. He is afebrile. EXAMINATION OF THE HEART: S1 and S2. EXAMINATION OF LUNGS: Bilateral breath sounds are heard. ABDOMEN: Soft, non-tender, distended, obese. Examination of lower extremities shows no significant edema. SOFTWARE RECR[employer]ITER exam shows patient is moving all 4 extremities. Labs show sodium 151, potassium 3.6, chloride 112, BUN 76, creatinine 2.16, hemoglobin 11.7 g/dL. ASSESSMENT: 1. Hypernatremia associated with free water deficit. Resume D5W, as serum sodium has increased further from yesterday. Continue to encourage increased free water intake. Patient is currently off of Lasix. 2. Acute kidney injury, acute tubular necrosis, nonoliguric; renal function fairly stable. No nephrotoxic agents on board. 3. Sepsis secondary to endocarditis with Enterococcus faecalis bacteremia, status post antibiotics. Repeat blood cultures are negative. 4. Atrial fibrillation with paced beats. 5. Status post vent-dependent respiratory failure. PLAN: Continue D5W. Repeat labs in a.m. Continue off of Lasix. Monitor for volume overload. Repeat chest x-ray over the weekend. MMODL / IJN: [id number] /
[2019-03-20 20:10] LABS: Calcium 8.6 mg/dL (8.4-10.2); Potassium 3.7 mmol/L (3.5-5.1)
[2019-03-20 20:27] LABS: Glucose,Whole Blood 146 mg/dL (75-99)
[2019-03-20] MEDS: CLOPIDOGREL 75 MG TAB PO SCH (22:34)
[2019-03-21 06:25] LABS: Calcium 8.8 mg/dL (8.4-10.2); Potassium 3.9 mmol/L (3.5-5.1)
[2019-03-21 06:27] LABS: Glucose,Whole Blood 158 mg/dL (75-99)
[2019-03-21] MEDS: INSULIN ASPART (NovoLOG) 100 UNIT/ML VIAL SQ SCH ×4 (06:39→21:05)
[2019-03-21] MEDS: IPRATROPIUM-ALBUTEROL 3 ML NEB INHALATION SCH ×4 (09:20→20:44)
[2019-03-21] MEDS: PANTOPRAZOLE 40 MG/10 ML VIAL IVP SCH (09:41)
[2019-03-21] MEDS: HEPARIN SODIUM,PORCINE 5,000 UNIT/ML 1 ML VIAL SQ SCH ×2 (09:41→21:05)
[2019-03-21] MEDS: AMPICILLIN-SULBACTAM 3 GM in SODIUM CHLORIDE 0.9% 100 ML IVPB SCH ×3 (09:42→21:04)
[2019-03-21] MEDS: DEXTROSE 5% IN WATER 1,000 ML IV SCH (09:42)
[2019-03-21] MEDS: AMIODARONE 200 MG TAB PO SCH ×3 (09:42→21:05)
[2019-03-21] MEDS: METOPROLOL TARTRATE 50 MG TAB PO SCH ×3 (09:42→21:04)
[2019-03-21] MEDS: ASPIRIN 81 MG PO SCH (09:42)
[2019-03-21] MEDS: ATORVASTATIN 40 MG TAB PO SCH (09:42)
--- NOTE | 2019-03-21 10:25 | P.PN ---
Subjective Patient is seen in follow-up for acute kidney injury. Renal function is mildly worse. Creatinine 2.2 today. Diuretics are held. Oral intake is fair. No vomiting or diarrhea. Sodium level is stable at 149. Currently maintained on D5W at 50 mL an hour. Vital signs are stable. General: The patient appeared well nourished and normally developed. HEENT: Head exam is unremarkable. Neck is without jugular venous distension. LUNGS: Breath sounds decreased. HEART: Rate and Rhythm are regular. First and second heart sounds normal. No murmurs, rubs or gallops. ABDOMEN: Abdominal exam reveals normal bowel sounds. Non-tender and non-distended. No evidence of peritonitis. EXTREMITITES: Trace edema. Objective - Vital Signs Vital signs: Vital Signs Temp 97.9 F 03/21/19 08:00 Pulse 98 03/21/19 08:00 Resp 20 03/21/19 08:00 BP 115/95 03/21/19 08:00 Pulse Ox 92 L 03/21/19 08:00 Intake & Output 03/20/19 03/21/19 03/21/19 18:59 06:59 18:59 Intake Total 908 500 2041 Output Total 875 480 Balance 45 -380 1080 Weight 132.5 kg 139.5 kg Intake: Oral 885 419 6830 Output: Urine 875 480 Other: Voiding Method Indwelling Catheter Indwelling Catheter Indwelling Catheter ABP, PAP, CO, CI - Last Documented Arterial Blood Pressure 105/93 - Labs CBC & Chem 7: 03/20/19 09:23 03/21/19 05:36 Labs: Abnormal Lab Results - Last 24 Hours (Table) 03/20/19 03/20/19 03/20/19 Range/Units 09:23 10:56 16:42 Sodium 151 H (137-145) mmol/L Chloride 112 H (98-107) mmol/L BUN 76 H (9-20) mg/dL Creatinine 2.16 H (0.66-1.25) mg/dL Glucose 144 H (74-99) mg/dL POC Glucose (mg/dL) 126 H 152 H (75-99) mg/dL 03/20/19 03/20/19 03/21/19 Range/Units 19:38 20:25 05:36 Sodium 149 H 149 H (137-145) mmol/L Chloride 111 H 111 H (98-107) mmol/L BUN 72 H 73 H (9-20) mg/dL Creatinine 2.05 H 2.20 H (0.66-1.25) mg/dL Glucose 174 H 153 H (74-99) mg/dL POC Glucose (mg/dL) 146 H (75-99) mg/dL 03/21/19 Range/Units 06:25 Sodium (137-145) mmol/L Chloride (98-107) mmol/L BUN (9-20) mg/dL Creatinine (0.66-1.25) mg/dL Glucose (74-99) mg/dL POC Glucose (mg/dL) 158 H (75-99) mg/dL Assessment and Plan Plan: Assessment: 1. Acute kidney injury secondary to ATN secondary to sepsis and diuresis. Renal function mildly worse. Creatinine 2.2 today. 2. Hypernatremia secondary to diuresis and lack of oral water intake. 3. Sepsis secondary to endocarditis with enterococcus facialis bacteremia maintained on antibiotics. 4. Atrial fibrillation maintained on amiodarone and Lopressor. Plan: Increase rate of D5W to 70 mL an hour. Encouraged oral intake, including free water. Hold diuretics. Avoid nephrotoxins. Continue to monitor renal function and urine output.
--- NOTE | 2019-03-21 10:59 | P.PN ---
Progress Note - Text Progress Note Date: 03/21/19 The patient mentation today has improved. He is awake and alert but not quite oriented. Hemodynamically he is stable. He continues to be on antibiotic. Pulmonary and nephrology service continue to follow-up with the patient. Denies any symptoms of chest pain or chest discomfort at this point. He is on maximize medical treatment. At this point, we will continue the current medical regimen. From the cardiovascular standpoint of view, no reason for any workup at this point.
[2019-03-21 11:35] LABS: Glucose,Whole Blood 155 mg/dL (75-99)
--- NOTE | 2019-03-21 12:55 | P.PN ---
Subjective Progress Note Date: 03/21/19 Principal diagnosis: Acute hypoxic respiratory failure secondary to cardiogenic shock and septic shock, acute endocarditis This is a 71-year-old male patient with known history of ischemic cardiomyopathy along with known history of coronary artery disease and previous aortic valve replacement, AVR, and previous coronary artery bypass surgery, who presented to the hospital because of chest pain and non-STEMI. The patient has had previous catheterizations with stenting done in the distal left main as well as the proximal circumflex. He has a chronically totally occluded RCA. As mentioned, the patient was admitted with chest pain or shortness of breath and acute non-STEMI. The patient underwent another cardiac catheterization and the patient was found to have taken stent to the distal left mainstem to proximal circumflex, patent BELTRAN to LAD, chronic totally occluded RCA. Recommendations were mainly to maximize medical management. The patient was being treated for congestion heart failure. He was receiving Lasix drip and he was having ongoing orthopnea. He was taken yesterday to the [facility] and the patient was given biventricular pacing/AICD. Noted postop, the patient was extubated. He became short of breath and went into significant amount of respiratory distress and within 10 minutes she had to be reintubated. He was brought into the intensive care unit intubated on a mechanical ventilator. Initial blood gases showed a pH of 7.28 with a pCO2 of 51 and pO2 of 234. Necessary vent changes were done. The most recent blood gas showed a pH of 7.48 with a pCO2 of 28 and pO2 of 229. The morning vent settings include a tidal volume 400 with a rate of 18 and FiO2 of 40% with 5. The setting was adjusted based on the most recent blood gas. I noted that the patient is also on pressors and overnight the patient has required norepinephrine infusion and currently is running at 0.1 mcg/kg per minute. The patient is also on Lasix drip at 10 mg an hour. He is producing urine output. However, the patient has developed an acute kidney injury. Cr eatinine was normal at the time of admission on 02/27/2019 and there has been progressive rise in the creatinine which is up to 2.6 at this point in time. He was he was developing fevers with a temperature 11.6 on 03/04/2019. The patient has blood culture sent a blood culture came back positive for enterococcus group D. The patient was on cefazolin. IV Zosyn was added by the primary care team. This morning, the patient is sedated with propofol is currently running at 50 mics. His, comfortable. He is producing urine output. Her net fluid balance is -642 mL for yesterday. His cardiac rhythm is paced. His white cell count is 19.4. He is obviously septic condition with a positive blood culture. UA the time of admission was negative. He has a Diaz catheter in place. Abdomen is soft. His umbilical hernia. Surgical wound site over the left biventricular pacemaker is dry clean and intact. No significant orotracheal secretions. Chest x-ray from today shows cardiomegaly and lower lobe consolidation as the patient is a left lower lobe consolidation of the right upper lobe! The echocardiogram at shown an ejection fraction of 20-25%. There is moderate concentric left ventricular hypertrophy. There is severe global hypokinesis. No pericardial effusion. The peak gradient across the aortic valve was 35 mmHg. It is a normal functioning bioprosthetic valve. There is moderate mitral regurgitation. Mild pulmonary hypertension. on 03/07/2019 the patient remains sedated and intubated on mechanical ventilator. The patient is on propofol for sedation. The patient is also on a mechanical ventilator on assist control mode with a tidal volume of 000 and the rate of 18 with an FiO2 of 40% and PEEP of 5. The chest x-ray from today shows stable findings and there is left lower lobe consolidation/effusion. ET tube is in a good location. The left ear showed a pH of 7.44 with a pCO2 of 34 and pO2 of 131. Based on this, there is a component of respiratory alkalosis and I dropped a respiratory rate down to 14. The telephone was kept at 500 for now. I took this patient off the Lasix therapy yesterday as the patient's CVP was running low and the patient was also developing acute kidney injury. Today CVP is also low measuring as high as 4-5 millimeters of mercury. Based on that, the patient was started on oral Lasix set of IV Lasix for cardiology. He is prod ucing adequate amount of urine output. Creatinine is also improving and is down to 2.1. The patient is afebrile. The patient was seen by infectious disease. Antibiotic adjustments were done and the patient was placed on a combination of Unasyn and gentamicin. No clear indication for endocarditis. The patient has 3 positive blood culture that was positive for E faecalis, in the patient was si mplified back to Unasyn and gentamicin was discontinued as the patient was found to be having a Enterococcus faecalis resistant to gentamicin.. The patient is producing adequate amount of urine output. He is still on pressors and the present doses been weaned down to 0.07 micrograms per kilogram per minute of norepinephrine infusion. The patient will be started on enteral feeding for nutritional support. Cardiology is on the case. Cardiac rhythm remains paced. No significant electrolyte imbalance in the patient's white cell count is down to 10.5. 03/08/2019, the patient remains intubated on a mechanical ventilator. The patient remains hemodynamically unstable requiring pressors and the norepinephrine infusion is running at 0.08 mcg/kg per minute. He is also on Prinivil at 40 mics per KG. The patient a mechanical ventilator on assist control mode with a tidal volume of 500 and rate of 18 with an FiO2 of 40% and a PEEP of 5. Chest x-ray is unchanged compared to yesterday and there are some white pulmonary vessel congestion. The patient is producing 25 mL of urine output on an hourly basis. Net fluid balance is positive to 11 mL over the past 24 hours. He is currently on oral Lasix. He is also on norepinephrine infusion. He is on enteral feeding for nutritional support. He is receiving before for sedation. Note that all of the blood cultures came back positive for Enterococcus faecalis. The patient remains on IV Unasyn. Follow-up cultures were obtained to make sure there is no ongoing bacteremia. There is a high likely what that it there may be a component of infective endocarditis. The patient will need a LISSET to evaluate this further. His cardiac rhythm is paced. The fibrillator pocket is clean and intact at this point in time. As for his continued kidney injury, the patient's creatinine is improving and the creatinine is down to 1.72. The white cell count is also down to 10.5 and the patient is responding to IV Unasyn for now. Reevaluated today on 03/09/2019, patient remains on mechanical ventilation, he is still on norepinephrine at 0.05 mcg/kg/m, still on propofol at 50 mcg/kg/m. He is on mechanical ventilation, assist control rate of 18, FiO2 is 40%, PEEP of 5. Tidal volume is 500. Transesophageal echocardiogram is suspicious for vegetations involving the aortic bioprosthetic valve there was also evidence of thickened mitral valve leaflets with moderate mitral regurgitation. His LV function was noted to be impaired ejection fraction of 20%. ABG this morning showed a pO2 of 120 pCO2 of 42 pH of 7.42 11 lites are normal renal profile is abnormal with BUN of 42 creatinine of 1.75 WBC count is 12.3 hemoglobin is 10.2. Chest x-ray is suspicious for mild interstitial edema and small bilateral pleural effusions. There is also some retrocardiac atelectasis. Patient is sedated, on mechanical ventilation, I have no plans to wean the patient today since LISSET was scheduled to be done shortly after I evaluated the patient. Patient was reevaluated today on 03/10/2019, remains on mechanical ventilation, his ventilator settings are assist control rate of 14 FiO2 is 40% PEEP is 5 tidal volume is 500. Patient is on Cardizem drip as per cardiology 5 mg per hour, his also on metoprolol, and he is on norepinephrine at 0.05 mcg/kg/m. Propofol is 25 mcg/kg/m. Chest x-ray showed cardiomegaly and prominent pulmonary vasculature with minimal basilar atelectasis. ABG showed a pO2 of 117 pCO2 of 43 pH of 7.45. WBC count is 14.8 hemoglobin is 10.5. Electrolytes are relatively normal. Renal profile showed a BUN of 42 creatinine of 1.70. Patient remains sedated, however I plan to hold his sedation today, and hopefully assess mental status and decide whether we can proceed with any further weaning trials. Family is at bedside and they were updated on his condition and on the fact that he has endocarditis. Antibiotics were addressed by Dr. Nguyễn, patient is now on Unasyn. He also remains on Rocephin. Reevaluated today on 03/11/2019, remains in the ICU on mechanical ventilation. His ventilator settings are assist control rate of 14, tidal volume is 500 FiO2 of 35% PEEP is 5. Remains on propofol at 30 mcg/kg/m, he is off pressors. ABG this morning showed a pO2 of 103 pCO2 of 39 pH of 7.50. Electrolytes are normal however his BUN is 51 creatinine is 1.84. WBC count is 11.4 hemoglobin is 10.2. Patient remains on nutritional support via enteral feeding. Remains on antibiotics for his underlying endocarditis as per infectious disease. Yesterday the patient was given a sedation interruption, and a trial of weaning, however he was extremely agitated, restless, and could not go on to wean or extubated the patient. This would be reattempted again today. Reevaluated today in the ICU on 03/12/2019, patient remains on mechanical ventilation, his ventilator settings are tidal volume of 500 assist control rate of 14 FiO2 35% PEEP of 5. Patient remains on propofol, presently off norepinephrine, patient was given a weaning trial yesterday, however he became extremely tachycardic, and restless agitated. Today I plan to wean the patient slowly on Precedex to be started after stopping propofol. Patient will be awakened and will be given definitely a weaning trial today. Depending on how he does on pressure support and CPAP, may or may not proceed to full extubation. Chest x-ray is showing mild congestive changes. ABG this morning showed a pO2 of 77 pCO2 of 45 pH of 7.48 electrolytes showed elevated sodium of 148 BUN is 61 creatinine 1.78. Bicarb is 34 WBC count is 10.2 hemoglobin is 10.1. Patient remains on antibiotics, not requiring pressors at this point, has been intermittently on and off norepinephrine Reevaluated today on 03/13/2019, patient was extubated from mechanical venti lation yesterday, patient is presently on high flow nasal cannula, O2 saturation is in the mid 90s, tolerated the extubation well since yesterday. Chest x-ray continues to show evidence of mild congestive heart failure. However the patient has elevated sodium today, it is 153, and I have switched his IV fluid to D5W, will hold on the Lasix for now, and he will receive D5W at 50 mL per hour. Patient received Lasix earlier today by nephrology. Patient remains on antibiotics for his endocarditis. And he is hemodynamically stable at present. Reevaluated today on 03/14/2019, patient remains off mechanical ventilation, on high flow nasal cannula, O2 saturation is excellent. Chest x-ray showed mild interstitial edema. Patient continues to have intermittent episodes of confusion and disorientation. CT of the head is negative for septic emboli involving the brain. Sodium remains a bit elevated, and the process of correcting his sodium with D5W. Lasix is still on hold. BUN is 69 creatinine is 1.99 sodium today is 150. is at bedside, and she was updated on his condition, and explained to her that the patient may have metabolic encephalopathy. Related to his hypernatremia and sepsis with bacteremia. Patient was reevaluated today on 03/15/2019, seems to be doing fairly well, remains off mechanical ventilation,he is steadily improving, Denies any specific complaints,his mental status seems to be intermittently waxing and waning. But today he seems to be more appropriate.chest x-ray continues to show evidence of interstitial edema/CHF, his electrolytes are improving sodium is down to 146. BUN is 75 creatinine is 2.19. ABG last night showed a pO2 of 61 pCO2 48 pH of 7.43, hence his FiO2 was increased and he is presently on 6 L nasal cannula. On 03/17/2019 patient seen in follow-up in the intensive care unit, he is awake and alert, in no acute distress, he is currently on room air, with a pulse ox of 92%, maintenance IV fluids are present and normal saline at a rate of 10 ML per hour, denies any worsening dyspnea, lung sounds reveal a few scattered wheezes, no rhonchi, no rales. No altered mentation, no fever or chills, vital signs are stable. Follow up blood cultures are negative from 03/09/2019, and 03/10/2019. Patient is a combination of Unasyn and Rocephin for antibiotic coverage. No acute events overnight, today's labs have been reviewed, showing blood cell count of 15.9, hemoglobin of 11.1, electrolytes within normal limits, renal profile is stable, with BUN of 75 and creatinine of 2.10. The patient is seen today 03/18/2018 in follow-up on the selective care unit. He is currently resting comfortably in bed. Awake and alert in no acute distress. Maintaining good O2 saturations up to 100% on 2 L/m per nasal cannula. He's been afebrile. Hemodynamically stable. Follow-up blood cultures reveal no growth. White count 15.9. Hemoglobin 11.4. Creatinine 2.35. He remains on ceftriaxone and Unasyn. The patient is seen today 03/20/2019 in follow-up on the selective care unit. He is still somewhat altered. Follow-up computed tomography scan of the brain revealed mild to moderate generalized cerebral atrophy. No acute intracranial abnormality seen. EEG revealed moderate diffuse cerebral dysfunction as may be seen in a toxic metabolic encephalopathy. No seizures recorded. No epileptiform activity was present. He is maintaining O2 saturations in the 90s on 2 L/m per nasal cannula. No acute pulmonary distress. Follow-up blood cultures had revealed no growth after initial cultures positive for Enterococcus faecalis. He remains on ceftriaxone and Unasyn. White count 12.1. Hemoglobin 11.7. Creatinine 2.16. Sodium 151. Potassium 3.6. BUN 76. The patient is seen today 03/21/2019 in follow-up on the selective care unit. He is more awake and alert today as compared to yesterday. Still encephalopathic. Still confused to place and time. Calling out random names. Cursing at times. She is maintaining O2 saturations in the mid 90s on room air. He's been afebrile. Follow-up blood cultures reveal no growth. Sodium 149. Creatinine 2.20. He remains on Unasyn. Objective - Vital Signs Vital signs: Vital Signs Temp 97.9 F 03/21/19 08:00 Pulse 98 03/21/19 08:00 Resp 20 03/21/19 08:00 BP 115/95 03/21/19 08:00 Pulse Ox 92 L 03/21/19 08:00 Intake & Output 03/20/19 03/21/19 03/21/19 18:59 06:59 18:59 Intake Total 729 798 7329 Output Total 875 480 Balance 45 -380 1080 Weight 132.5 kg 139.5 kg Intake: Oral 363 600 9606 Output: Urine 875 480 Other: Voiding Method Indwelling Catheter Indwelling Catheter Indwelling Catheter ABP, PAP, CO, CI - Last Documented Arterial Blood Pressure 105/93 - Exam GENERAL EXAM: Alert, confused to time and place, 73-year-old obese male patient, on 2 L/m per nasal cannula, comfortable in no apparent distress. HEAD: Normocephalic/atraumatic. EYES: Normal reaction of pupils, equal size. Conjunctiva pink, sclera white. NOSE: Clear with pink turbinates. THROAT: No erythema or exudates. NECK: No masses, no JVD, no thyroid enlargement, no adenopathy. CHEST: No chest wall deformity. Symmetrical expansion. LUNGS: Equal air entry with a few scattered rhonchi, no rales CVS: Regular rate and rhythm, normal S1 and S2, no gallops, no murmurs, no rubs ABDOMEN: Soft, obese, nontender. No hepatosplenomegaly, normal bowel sounds, no guarding or rigidity. EXTREMITIES: No clubbing, no edema, no cyanosis, 2+ pulses and upper and lower extremities. MUSCULOSKELETAL: Muscle strength and tone normal. SPINE: No scoliosis or deformity SKIN: No rashes CENTRAL NERVOUS SYSTEM: Slow to respond. Some altered mental status., tone is normal in all 4 extremities. PSYCHIATRIC: Alert and oriented -3. Appropriate affect. Intact judgment and insight. - Labs CBC & Chem 7: 03/20/19 09:23 03/21/19 05:36 Labs: Abnormal Lab Results - Last 24 Hours (Table) 03/20/19 03/20/19 03/20/19 Range/Units 16:42 19:38 20:25 Sodium 149 H (137-145) mmol/L Chloride 111 H (98-107) mmol/L BUN 72 H (9-20) mg/dL Creatinine 2.05 H (0.66-1.25) mg/dL Glucose 174 H (74-99) mg/dL POC Glucose (mg/dL) 152 H 146 H (75-99) mg/dL 03/21/19 03/21/19 03/21/19 Range/Units 05:36 06:25 11:33 Sodium 149 H (137-145) mmol/L Chloride 111 H (98-107) mmol/L BUN 73 H (9-20) mg/dL Creatinine 2.20 H (0.66-1.25) mg/dL Glucose 153 H (74-99) mg/dL POC Glucose (mg/dL) 158 H 155 H (75-99) mg/dL Assessment and Plan Assessment: Assessment: 1 acute hypoxic respiratory failure secondary to cardiogenic shock and septic shock. Patient was extubated successfully on 03/12/2019. 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 3 severe LV dysfunction and cardiomyopathy, ischemic in nature, ejection fraction of 20-25% post-insertion of AICD. 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 6 septic shock secondary to enterococcal infection 7 acute kidney injury secondary to sepsis, ATN, and possibly contrast nephropathy 8 history of underlying COPD, hypertension, hyperlipidemia, obesity, and generalized anxiety disorder. 9 hypernatremia , current sodium 141 10 acute metabolic encephalopathy secondary to electrolytes imbalance, hypernatremia, and sepsis as well as bacteremia. Plan: The patient was seen and evaluated by Dr. Mehta. He is more alert today but di soriented to place and time. Remains altered. Neurology is on the case. Suspect mainly metabolic encephalopathy. We'll continue to follow and make further recommendations based on his clinical status. I, the cosigning physician, performed a history & physical examination of the patient. Lungs sounds with few scattered rhonchi. Maintaining good O2 saturations in the 90s on 2 L/m per nasal cannula. I discussed the assessment and plan of care with my nurse practitioner, Lindsey Juárez. I attest to the above note as dictated by her.
--- NOTE | 2019-03-21 15:53 | P.PN ---
Subjective This is a pleasant 73 years old male with past medical history of coronary artery disease patient , , heart failure, asthma, GERD, hyperlipidemia, h ypertension, osteoarthritis, valvular heart disease. Patient was admitted with non-STEMI, he underwent cardiac cath on 03/03/2019, showing patent stents and coronaries. Also patient underwent elective EP study yesterday and status post AICD placement, patient is currently in the ICU intubated and could not provide information, he was extubated for short time before he needed reintubation. Information was taken from the staff at the medical records as patient cannot contribute to history . He has low ejection fraction 20-25%. Patient is obese and he needed low dose of pressors. He has distended abdomen, possibly from fat. No focal neurological findings. Also he has positive blood culture with enterococcus and trending up leukocytes. Infectious disease was consulted, patient is currently on Zosyn. Also patient creatinine is trending up however patient is making reasonable urine output, he was on Lasix drip but this was stopped. 03/07/2019 Patient in the ICU intubated and sedated, his vitals with blood pressure 130/54, and he is saturating 98%. His WBC is back to normal at 10.5. Creatinine is at 2.14 with slight improvement down from 2.6 yesterday. He has several blood culture positive for enterococcus. Chest x-ray showing no significant change. Patient has been evaluated by technician automatic and spring repairer helper hand, spring repairer helper hand considering LISSET if blood culture remains positive. Patient also was started on gentamicin and Unasyn as per infectious disease recommendation 03/08/2019 Patient remains in the ICU, he still intubated and sedated. Blood pressure 108/52, saturating 96%, heart rate is 70. K, hemoglobin is stable at 10.4, platelets are within normal limits. Creatinine is improving gradually down to 1.7, electrolytes included sodium and potassium are within normal limits, sugar is running between 129-155. Magnesium is elevated at 2.5,. He has several bloo d culture that's positive for group D enterococcus faecalis, cardiology R following the case and the plan is for transesophageal echocardiogram tomorrow to rule out endocarditis 03/09/2019 Patient is ICU intubated and sedated, patient is planned to go for transesophageal echocardiogram today to rule out endocarditis in view of his persistent bacteremia/septicemia. Patient remains currently on Unasyn. Patient is slightly bradycardic at 57-60, he had low-grade temperature yesterday of 100.2, blood pressure 102/58, lap showing mild leukocytosis of 12.3 K, hemoglobin is stable. Creatinine is improving to 1.75. ABGs showed pH of 7.4, pCO2 42 which are within normal limits, pO2 is 120. Repeat blood cultures are pending, repeat chest x-ray from today showing fluid overload with interstitial edema with possible atelectasis. 03/10/2019 Patient remains in the ICU intubated and sedated, yesterday he had a LISSET which showing low ejection fraction around 20% with agitation note dictated on the aortic valve. Also patient noted to bleed easily given from subcutaneous injection site, currently is on subcu heparin to 8 which is lower to every 12 this morning, he is also on aspirin and Plavix, platelets are normal. We don't to check PT and INR and PTT today. Last night patient was started on Cardizem drip for better control of his blood pressure and heart rate and blood pressure. Patient is followed closely by cardiology and rectal care team. Prognosis is extremely poor 03/11/2019 Patient remains in the ICU, he is intubated and sedated. Patient failed weaning trials today by the pulmonary team. Patient is still tachycardic and he was started on Cardizem drip today, blood pressure 111/66. mild leukocytosis of 11.4 k, hemoglobin 10.2, sodium is 148, creatinine 1.8, compared to 1.7 yesterday. repeat blood cultures still shown enterococcus. the patient remains on unasyn and ceftriaxone currently with infectious disease followed the case closely. patient is following closely by cardiology and pulmonary/critical care team. prognosis remains guarded 03/12/2019 Patient remains in the ICU in critical condition, he is intubated and sedated however he is undergoing wound and a trial which has been failed previously. Blood pressure on the low side 66/38, wbc of 10.2 k, hemoglobin 10.1. his creatinine is stable at 1.7, high sodium on 148. Sugar is controlled at the r bo of 120-143. Repeat blood culture from 03/10 and 03/09 still pending which shows no growth so far. Repeat chest x-ray showed stable findings. His been followed closely by several consultants including cardiology, critical care and infectious disease recommended to continue with Unasyn and ceftriaxone for 6 weeks. Subjective 03/16/2019 Patient remains in the ICU. Is a status post extubation. Currently he is on oxygen nasal cannula 6 L/m with his oxygen saturation at 99%. Rest of vitals show a respiratory rate of 22-25, with tachycardia 108 07/11/2013, rest of vitals stable and patient is afebrile for the last few days. Labs showing resistant leukocytosis at 16.8 K, creatinine stable at 2.0. He has no chest pain, no headache. No change in bowel habits. He remains on Unasyn and ceftriaxone as per infectious disease recommendation, his Lasix was lowered to 40 mg IV daily, and he is off the amiodarone drip and currently is on amiodarone pills at 200 mg twice daily. Patient is able to eat and drink so D5W was stopped. Pain is controlled. 03/17/2019 Patient gives improving, he is awake and oriented, he knows why he is in the hospital. He feels generally weak and still short of breath. He is saturating 78-88% on room air, however patient is non-adherent to his oxygen therapy and he keeps taken off his nasal cannula. His saturation goes up to 97% on 4 L oxygen via high flow cannula. No chest pain. Slightly tachycardic. Blood pressure s table. Still have leukocytosis of 15.9 and creatinine stable at 2.1. Sugar control. Patient remains on Unasyn and ceftriaxone and he will need a PICC line and prolonged antibiotic course. ECF is recommended for patient upon discharge. Also is on Lasix 40 mg twice daily and amiodarone 200 mg twice daily basis metoprolol 75 mg 3 times daily. Pain controlled Discussed with the staff today 03/18/2019 Patient was transported to the select unit at the general medical floor. He is awake and alert, he still short of breath with decreased air entry in both sides, however he denies chest pain, his Kassy to tolerate his diet. His Vitas looks stable. Patient has persistent leukocytosis at 15.9 K, creatinine is 2.3. And sugars controlled. Patient remains on Unasyn and Rocephin per infectious disease team with cardiology and pulmonary team R following closely. 03/19/2019 Family concern that the patient was still not at his baseline mental status and they were asking for neurology evaluation. Neurologist recommended repeat CT of the head, EEG, with lab work including TSH ammonia and vitamin B12. Patient is still short of breath with abdominal distention. He is profoundly weak and yesterday did not participate with physical therapy. Cardiology and infectious disease R following the case closely and they cleared the patient for PICC line as he has negative blood culture on repeat testing. On for him for prolonged antibiotics for 6 weeks. Lap showing persistent leukocytosis of 16.1 K, creatinine 2.4 and sodium 147. Patient is followed closely by pulmonary and renal team. Patient has couple of loose bowel movements. We will order abdominal x-rays 03/20/2019 Patient in the general medical floor, is awake and oriented to place but not to time or person, he answers some questions appropriately and follow commands. He does not look in distress. He denies chest pain or dyspnea. His Vitas looks stable however he still feels a bit tachypneic, his saturating 100% on 2 L oxygen via nasal cannula. He still have mild leukocytosis of 16.1 K creatinine is 2.4, that is from yesterday repeat labs from today showing hypernatremia with sodium 151, patient was started on D5W.. Diaz catheter is in place. PICC line was placed yesterday while I J line was removed. EEG showing no seizure-like activity but rather he has metabolic encephalopathy. Workup of B12, ammonia and TSH/T4 are nonrevealing for his mental status change. Patient is followed closely by several consultants including cardiology, pulmonary, nephrology and urology. Infectious disease help her with managing his antibiotics. Patient will need to ECF for rehab and antibiotic therapy upon discharge 03/21/2019 patient is more awake but still confused, hemodynamically stable but is tachypneic with a breathing rate 20-26.sodium improved to 149, creatinine 2.2, glucose is 155. His been followed by several consultants including pulmonary, most likely patient has metabolic encephalopathy secondary to his his SBE and renal failure with electrolyte abnormality. We'll increase the rate of D5W to 70 mL/h as sodium is 149 Objective - Vital Signs Vital signs: Vital Signs Temp 97.9 F 03/21/19 08:00 Pulse 89 03/21/19 12:00 Resp 20 03/21/19 12:00 BP 117/82 03/21/19 12:00 Pulse Ox 93 L 10/12/19 12:00 Intake & Output 03/20/19 03/21/19 03/21/19 18:59 06:59 18:59 Intake Total 184 662 3640 Output Total 875 480 Balance 45 -380 1080 Weight 132.5 kg 139.5 kg Intake: Oral 796 563 6493 Output: Urine 875 480 Other: Voiding Method Indwelling Catheter Indwelling Catheter Indwelling Catheter ABP, PAP, CO, CI - Last Documented Arterial Blood Pressure 105/93 - Exam -GENERAL: The patient is intubated and sedated HEENT: Pupils are round and equally reacting to light. EOMI. No scleral icterus. No conjunctival pallor. Normocephalic, atraumatic. No pharyngeal erythema. No thyromegaly. CARDIOVASCULAR: S1 and S2 present. No murmurs, rubs, or gallops. PULMONARY: Chest is clear to auscultation, no wheezing or crackles. ABDOMEN: Soft, nontender, nondistended, normoactive bowel sounds. No palpable organomegaly. MUSCULOSKELETAL: No joint swelling or deformity. EXTREMITIES: No cyanosis, clubbing, or pedal edema. NEUROLOGICAL: Gross neurological examination did not reveal any focal deficits. SKIN: No rashes. no petechiae. - Labs CBC & Chem 7: 03/20/19 09:23 03/21/19 05:36 Labs: Abnormal Lab Results - Last 24 Hours (Table) 03/20/19 03/20/19 03/20/19 Range/Units 16:42 19:38 20:25 Sodium 149 H (137-145) mmol/L Chloride 111 H (98-107) mmol/L BUN 72 H (9-20) mg/dL Creatinine 2.05 H (0.66-1.25) mg/dL Glucose 174 H (74-99) mg/dL POC Glucose (mg/dL) 152 H 146 H (75-99) mg/dL 03/21/19 03/21/19 03/21/19 Range/Units 05:36 06:25 11:33 Sodium 149 H (137-145) mmol/L Chloride 111 H (98-107) mmol/L BUN 73 H (9-20) mg/dL Creatinine 2.20 H (0.66-1.25) mg/dL Glucose 153 H (74-99) mg/dL POC Glucose (mg/dL) 158 H 155 H (75-99) mg/dL Assessment and Plan Assessment: Cardiogenic and septic shock . Improved Acute on chronic systolic congestive heart failure with ejection fraction 20- 25%, on the top of history of severe ischemic cardiomyopathy. 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, secondary to enterococcus infection Systemic inflammatory response with leukocytosis and tachypnea Metabolic encephalopathy, mostly secondary to above Mild hypernatremia Possible None STEMI on admission, status post cardiac cath showing patent stents Acute kidney injury, secondary to shock states, goes more with cardiorenal syndrome acute hypoxic respiratory failure, status post intubation and mechanical ventilation History of coronary artery disease History of valvular heart disease Hypertension Hyperlipidemia COPD/asthma Plan: This is a 73 years old male who presents with septic shock secondary to SBE. Continue with antibiotics as per infectious disease recommendation, for 6 more weeks and currently he is on Unasyn and ceftriaxone, continue with oxygen and follow-up with pulmonary/critical team. Patient is on Lasix. . Follow-up cardiology recommendations. Follow-up neurology recommendation and his workup requested. Ordered. Follow-up WBC and creatinine.Labs and medication were reviewed. Continue same treatment. Continue with symptomatic treatment. Resume home medication. Monitor lytes and vitals. DVT and GI prophylaxis. Further recommendations of the clinical course of the patient DVT prophylaxis: Subcutaneous heparin GI Prophylaxis: Protonix Prognosis is guarded
[2019-03-21 16:48] LABS: Glucose,Whole Blood 198 mg/dL (75-99)
[2019-03-21] MEDS: CLOPIDOGREL 75 MG TAB PO SCH (21:05)
[2019-03-21 21:13] LABS: Glucose,Whole Blood 152 mg/dL (75-99)
[2019-03-22] MEDS: DEXTROSE 5% IN WATER 1,000 ML IV SCH ×2 (03:12→11:28)
[2019-03-22] MEDS: ACETAMINOPHEN TAB 325 MG TAB PO PRN ×2 (04:57→23:35)
[2019-03-22 06:32] LABS: Glucose,Whole Blood 133 mg/dL (75-99)
[2019-03-22] MEDS: INSULIN ASPART (NovoLOG) 100 UNIT/ML VIAL SQ SCH ×4 (06:40→21:49)
[2019-03-22 06:46] LABS: Calcium 8.5 mg/dL (8.4-10.2); Magnesium 2.8 mg/dL (1.6-2.3); Potassium 3.7 mmol/L (3.5-5.1)
[2019-03-22] MEDS: IPRATROPIUM-ALBUTEROL 3 ML NEB INHALATION SCH ×4 (08:16→20:41)
[2019-03-22] MEDS: AMIODARONE 200 MG TAB PO SCH ×3 (09:29→21:50)
[2019-03-22] MEDS: ATORVASTATIN 40 MG TAB PO SCH (09:29)
[2019-03-22] MEDS: METOPROLOL TARTRATE 50 MG TAB PO SCH ×3 (09:29→21:50)
[2019-03-22] MEDS: ASPIRIN 81 MG PO SCH (09:29)
[2019-03-22] MEDS: AMPICILLIN-SULBACTAM 3 GM in SODIUM CHLORIDE 0.9% 100 ML IVPB SCH ×2 (09:30→21:49)
[2019-03-22] MEDS: HEPARIN SODIUM,PORCINE 5,000 UNIT/ML 1 ML VIAL SQ SCH ×2 (09:30→21:50)
[2019-03-22] MEDS: PANTOPRAZOLE 40 MG/10 ML VIAL IVP SCH (09:30)
[2019-03-22] MEDS ORDERED: FUROSEMIDE 10 MG/ML 4 ML VIAL IV STA (09:42)
[2019-03-22] MEDS ORDERED: POTASSIUM CHLORIDE ER 20 MEQ TAB.ER PO STA (09:42)
--- NOTE | 2019-03-22 10:44 | P.PN ---
Subjective Patient is seen in follow-up for acute kidney injury. Renal function is fairly stable. Creatinine 2.09 today. Diuretics are held. Oral intake is fair. No vomiting or diarrhea. Sodium level is down to 144 today. Currently maintained on D5W at 75 mL an hour. Patient appears more confused today. Vital signs are stable. General: The patient appeared well nourished and normally developed. HEENT: Head exam is unremarkable. Neck is without jugular venous distension. LUNGS: Breath sounds decreased. HEART: Rate and Rhythm are regular. First and second heart sounds normal. No murmurs, rubs or gallops. ABDOMEN: Abdominal exam reveals normal bowel sounds. Non-tender and non- distended. No evidence of peritonitis. EXTREMITITES: 1+ edema. Objective - Vital Signs Vital signs: Vital Signs Temp 98.5 F 03/22/19 04:00 Pulse 82 03/22/19 04:00 Resp 22 03/22/19 04:00 BP 152/87 03/22/19 04:00 Pulse Ox 95 03/22/19 04:00 Intake & Output 03/21/19 03/22/19 03/22/19 18:59 06:59 18:59 Intake Total 1080 Output Total 500 250 Balance 580 -250 Intake: Oral 1080 Output: Urine 500 250 Other: Voiding Method Indwelling Catheter Indwelling Catheter ABP, PAP, CO, CI - Last Documented Arterial Blood Pressure 105/93 - Labs CBC & Chem 7: 03/20/19 09:23 03/22/19 05:27 Labs: Abnormal Lab Results - Last 24 Hours (Table) 03/21/19 03/21/19 03/21/19 Range/Units 11:33 16:46 20:53 BUN (9-20) mg/dL Creatinine (0.66-1.25) mg/dL Glucose (74-99) mg/dL POC Glucose (mg/dL) 155 H 198 H 152 H (75-99) mg/dL Magnesium (1.6-2.3) mg/dL 03/22/19 03/22/19 Range/Units 05:27 06:31 BUN 70 H (9-20) mg/dL Creatinine 2.09 H (0.66-1.25) mg/dL Glucose 145 H (74-99) mg/dL POC Glucose (mg/dL) 133 H (75-99) mg/dL Magnesium 2.8 H (1.6-2.3) mg/dL Assessment and Plan Plan: Assessment: 1. Acute kidney injury secondary to ATN secondary to sepsis and diuresis. Renal function stable. 2. Hypernatremia secondary to diuresis and lack of oral water intake. Better. 3. Sepsis secondary to endocarditis with enterococcus facialis bacteremia maintained on antibiotics. 4. Atrial fibrillation maintained on amiodarone and Lopressor. 5. Volume overload. Plan: Decrease rate of D5W to 60 mL an hour. Encouraged oral intake, including free water. Lasix 40 mg IV once today. Avoid nephrotoxins. Continue to monitor renal function and urine output.
[2019-03-22 11:48] LABS: Glucose,Whole Blood 148 mg/dL (75-99)
--- NOTE | 2019-03-22 12:28 | PN ---
PROGRESS NOTE DATE OF SERVICE: 03/22/2019 This is a 73-year-old male who was admitted back on March 01. The patient was eventually diagnosed with Enterococcus faecalis endocarditis. The patient developed acute hypoxemic respiratory failure and cardiogenic shock as well as septic shock. He was successfully extubated by my partner on March 12. Since that time, his major issue has been mental status issues. He has had an EEG which did not reveal any seizure activity. It did show diffuse slowing consistent with anoxic/metabolic encephalopathy. A CT of the brain also did not show anything acute. His mental status is waxing and waning. It may just relate to metabolic encephalopathy. Anyway, other than that he is doing reasonably well. He does have a history of LV dysfunction and cardiomyopathy, with an ejection fraction of only 20-25%, status post AICD placement, CAD with previous bypass grafting, history of aortic valve replacement with bioprosthetic aortic valve, acute kidney injury secondary to sepsis and ATN, underlying COPD, hypertension, hyperlipidemia, obesity, and generalized anxiety disorder. Also, more recently, he has developed hypernatremia. His fluids were changed and he received D5W and his sodium is correcting itself. Other than that he is doing reasonably well. Today in the room he had a friend there. He did recognize me and was able to verbalize my last name. PHYSICAL EXAMINATION: Current vital signs are reviewed. Temperature is 97.3, heart rate 96, respiratory rate 20, blood pressure 119/87, mean 97, saturations are 96% on 2 L. Again, his mental status is poor. He is in an out. Sometimes he is much more awake and alert than others. HEENT examination is grossly unremarkable. Mucous membranes are moist. Nasal O2 noted. Neck is supple. Full range of motion. No adenopathy. Neck veins are flat. CARDIOVASCULAR examination reveals regular rhythm rate. S1, S2 normal. No S3 or S4. No murmurs noted. LUNGS: Reveal a few scattered rhonchi. He really does not take deep breaths. There are no wheezes or crackles. Breath sounds equal. ABDOMEN is obese. Bowel sounds are heard. EXTREMITIES are intact. Mild edema. SKIN is without rash. NEUROLOGIC examination is poor. He is very lethargic and somnolent. Sometimes he is a bit more alert and he can verbalize. Sometimes he just has a blank stare. He does move all 4 extremities. Microbiologic studies reveal Enterococcus faecalis through blood cultures done March 08. LAB DATA: Reviewed. Sodium 144, potassium 3.7, chloride 105, CO2 is 25, anion gap is 14. BUN and creatinine were 78, 2.09. No recent chest x-rays to review. Medications are reviewed. ASSESSMENT: 1. Acute hypoxemic respiratory failure secondary to both cardiogenic and septic shock with successful extubation on March 12, 2019. 2. Acute endocarditis secondary to Enterococcus faecalis infection with enterococcal bacteremia. 3. Severe left ventricular dysfunction and cardiomyopathy, ischemic in nature, with an ejection fraction of 20% to 25%, status post AICD placement. 4. Coronary artery disease with previous bypass grafting. 5. History of aortic valve replacement with a bioprosthetic aortic valve and transesophageal echocardiogram showed evidence of endocarditis. 6. Septic shock, secondary to enterococcal infection, resolved. 7. Acute kidney injury secondary to sepsis and acute tubular necrosis and possible contrast nephropathy. 8. History of chronic obstructive pulmonary disease. 9. History of benign essential hypertension. 10.History of hyperlipidemia. 11.Obesity. 12.Generalized anxiety disorder. 13.Hypernatremia. 14.Metabolic encephalopathy with negative CT scan of the brain and diffuse slowing on EEG. PLAN: Overall, the patient status is stable. His biggest issue is mental status now. He has been seen by Neurology. He had a CT scan of the brain which was negative for anything acute. The EEG shows diffuse slowing consistent with metabolic encephalopathy. We will continue to follow. Prognosis is guarded. Will eventually need discharge to rehab facility. [id number] / IJN: [id number] /
--- NOTE | 2019-03-22 12:33 | P.PN ---
Subjective Progress Note Date: 03/22/19 Principal diagnosis: Infectious endocarditis This is a pleasant 73-year-old gentleman with extensive past medical history consistent of coronary artery disease, status post aortic valve replacement with bioprosthetic valve, cardiomyopathy, as well as multiple comorbid conditions was admitted to the hospital with septic shock related to enterococcal infection. He was found to have infectious endocarditis confirmed by transesophageal echocardiogram. The patient had a long hospital stay and he was intubated and extubated. On follow-up with him today, March 222018, his mentation is a slightly better. He denies any symptoms of chest pain or chest discomfort. The cr eatinine today is 2.1. The hemoglobin is stable. He is on maximize medical treatment regarding the coronary artery disease as well as cardio myopathy. He received an AICD while he was here in the hospital. Objective - Vital Signs Vital signs: Vital Signs Temp 97.3 F L 03/22/19 08:00 Pulse 96 03/22/19 08:00 Resp 20 03/22/19 08:00 BP 119/87 03/22/19 08:00 Pulse Ox 96 03/22/19 08:00 Intake & Output 03/21/19 03/22/19 03/22/19 18:59 06:59 18:59 Intake Total 1080 Output Total 500 250 Balance 580 -250 Intake: Oral 1080 Output: Urine 500 250 Other: Voiding Method Indwelling Catheter Indwelling Catheter ABP, PAP, CO, CI - Last Documented Arterial Blood Pressure 105/93 - Constitutional General appearance: Present: no acute distress - Respiratory Respiratory: bilateral: diminished - Cardiovascular Heart sounds: normal: S1, S2 - Labs CBC & Chem 7: 03/20/19 09:23 03/22/19 05:27 Labs: Abnormal Lab Results - Last 24 Hours (Table) 03/21/19 03/21/19 03/22/19 Range/Units 16:46 20:53 05:27 BUN 70 H (9-20) mg/dL Creatinine 2.09 H (0.66-1.25) mg/dL Glucose 145 H (74-99) mg/dL POC Glucose (mg/dL) 198 H 152 H (75-99) mg/dL Magnesium 2.8 H (1.6-2.3) mg/dL 03/22/19 03/22/19 Range/Units 06:31 11:40 BUN (9-20) mg/dL Creatinine (0.66-1.25) mg/dL Glucose (74-99) mg/dL POC Glucose (mg/dL) 133 H 148 H (75-99) mg/dL Magnesium (1.6-2.3) mg/dL Assessment and Plan Assessment: Assessment #1 acute hypoxic respiratory failure which has resolved #2 infectious endocarditis #3 coronary artery disease #4 severe cardiomyopathy #5 status post AICD #6 multiple comorbid conditions Plan #1 continue the current medical regimen #2 continue monitoring the kidney function and electrolytes #3 follow-up with the patient
--- NOTE | 2019-03-22 13:31 | P.PN ---
Subjective This is a pleasant 73 years old male with past medical history of coronary artery disease patient , , heart failure, asthma, GERD, hyperlipidemia, h ypertension, osteoarthritis, valvular heart disease. Patient was admitted with non-STEMI, he underwent cardiac cath on 03/03/2019, showing patent stents and coronaries. Also patient underwent elective EP study yesterday and status post AICD placement, patient is currently in the ICU intubated and could not provide information, he was extubated for short time before he needed reintubation. Information was taken from the staff at the medical records as patient cannot contribute to history . He has low ejection fraction 20-25%. Patient is obese and he needed low dose of pressors. He has distended abdomen, possibly from fat. No focal neurological findings. Also he has positive blood culture with enterococcus and trending up leukocytes. Infectious disease was consulted, patient is currently on Zosyn. Also patient creatinine is trending up however patient is making reasonable urine output, he was on Lasix drip but this was stopped. 03/07/2019 Patient in the ICU intubated and sedated, his vitals with blood pressure 130/54, and he is saturating 98%. His WBC is back to normal at 10.5. Creatinine is at 2.14 with slight improvement down from 2.6 yesterday. He has several blood culture positive for enterococcus. Chest x-ray showing no significant change. Patient has been evaluated by [employer] bi developer and ambulance driver, ambulance driver considering LISSET if blood culture remains positive. Patient also was started on gentamicin and Unasyn as per infectious disease recommendation 03/08/2019 Patient remains in the ICU, he still intubated and sedated. Blood pressure 108/52, saturating 96%, heart rate is 70. K, hemoglobin is stable at 10.4, platelets are within normal limits. Creatinine is improving gradually down to 1.7, electrolytes included sodium and potassium are within normal limits, sugar is running between 129-155. Magnesium is elevated at 2.5,. He has several bloo d culture that's positive for group D enterococcus faecalis, cardiology R following the case and the plan is for transesophageal echocardiogram tomorrow to rule out endocarditis 03/09/2019 Patient is ICU intubated and sedated, patient is planned to go for transesophageal echocardiogram today to rule out endocarditis in view of his persistent bacteremia/septicemia. Patient remains currently on Unasyn. Patient is slightly bradycardic at 57-60, he had low-grade temperature yesterday of 100.2, blood pressure 102/58, lap showing mild leukocytosis of 12.3 K, hemoglobin is stable. Creatinine is improving to 1.75. ABGs showed pH of 7.4, pCO2 42 which are within normal limits, pO2 is 120. Repeat blood cultures are pending, repeat chest x-ray from today showing fluid overload with interstitial edema with possible atelectasis. 03/10/2019 Patient remains in the ICU intubated and sedated, yesterday he had a LISSET which showing low ejection fraction around 20% with agitation note dictated on the aortic valve. Also patient noted to bleed easily given from subcutaneous injection site, currently is on subcu heparin to 8 which is lower to every 12 this morning, he is also on aspirin and Plavix, platelets are normal. We don't to check PT and INR and PTT today. Last night patient was started on Cardizem drip for better control of his blood pressure and heart rate and blood pressure. Patient is followed closely by cardiology and rectal care team. Prognosis is extremely poor 03/11/2019 Patient remains in the ICU, he is intubated and sedated. Patient failed weaning trials today by the pulmonary team. Patient is still tachycardic and he was started on Cardizem drip today, blood pressure 111/66. mild leukocytosis of 11.4 k, hemoglobin 10.2, sodium is 148, creatinine 1.8, compared to 1.7 yesterday. repeat blood cultures still shown enterococcus. the patient remains on unasyn and ceftriaxone currently with infectious disease followed the case closely. patient is following closely by cardiology and pulmonary/critical care team. prognosis remains guarded 03/12/2019 Patient remains in the ICU in critical condition, he is intubated and sedated however he is undergoing wound and a trial which has been failed previously. Blood pressure on the low side 66/38, wbc of 10.2 k, hemoglobin 10.1. his creatinine is stable at 1.7, high sodium on 148. Sugar is controlled at the r bo of 120-143. Repeat blood culture from 03/10 and 03/09 still pending which shows no growth so far. Repeat chest x-ray showed stable findings. His been followed closely by several consultants including cardiology, critical care and infectious disease recommended to continue with Unasyn and ceftriaxone for 6 weeks. Subjective 03/16/2019 Patient remains in the ICU. Is a status post extubation. Currently he is on oxygen nasal cannula 6 L/m with his oxygen saturation at 99%. Rest of vitals show a respiratory rate of 22-25, with tachycardia 108 07/11/2013, rest of vitals stable and patient is afebrile for the last few days. Labs showing resistant leukocytosis at 16.8 K, creatinine stable at 2.0. He has no chest pain, no headache. No change in bowel habits. He remains on Unasyn and ceftriaxone as per infectious disease recommendation, his Lasix was lowered to 40 mg IV daily, and he is off the amiodarone drip and currently is on amiodarone pills at 200 mg twice daily. Patient is able to eat and drink so D5W was stopped. Pain is controlled. 03/17/2019 Patient gives improving, he is awake and oriented, he knows why he is in the hospital. He feels generally weak and still short of breath. He is saturating 78-88% on room air, however patient is non-adherent to his oxygen therapy and he keeps taken off his nasal cannula. His saturation goes up to 97% on 4 L oxygen via high flow cannula. No chest pain. Slightly tachycardic. Blood pressure s table. Still have leukocytosis of 15.9 and creatinine stable at 2.1. Sugar control. Patient remains on Unasyn and ceftriaxone and he will need a PICC line and prolonged antibiotic course. ECF is recommended for patient upon discharge. Also is on Lasix 40 mg twice daily and amiodarone 200 mg twice daily basis metoprolol 75 mg 3 times daily. Pain controlled Discussed with the staff today 03/18/2019 Patient was transported to the select unit at the general medical floor. He is awake and alert, he still short of breath with decreased air entry in both sides, however he denies chest pain, his Kassy to tolerate his diet. His Vitas looks stable. Patient has persistent leukocytosis at 15.9 K, creatinine is 2.3. And sugars controlled. Patient remains on Unasyn and Rocephin per infectious disease team with cardiology and pulmonary team R following closely. 03/19/2019 Family concern that the patient was still not at his baseline mental status and they were asking for neurology evaluation. Neurologist recommended repeat CT of the head, EEG, with lab work including TSH ammonia and vitamin B12. Patient is still short of breath with abdominal distention. He is profoundly weak and yesterday did not participate with physical therapy. Cardiology and infectious disease R following the case closely and they cleared the patient for PICC line as he has negative blood culture on repeat testing. On for him for prolonged antibiotics for 6 weeks. Lap showing persistent leukocytosis of 16.1 K, creatinine 2.4 and sodium 147. Patient is followed closely by pulmonary and renal team. Patient has couple of loose bowel movements. We will order abdominal x-rays 03/20/2019 Patient in the general medical floor, is awake and oriented to place but not to time or person, he answers some questions appropriately and follow commands. He does not look in distress. He denies chest pain or dyspnea. His Vitas looks stable however he still feels a bit tachypneic, his saturating 100% on 2 L oxygen via nasal cannula. He still have mild leukocytosis of 16.1 K creatinine is 2.4, that is from yesterday repeat labs from today showing hypernatremia with sodium 151, patient was started on D5W.. Diaz catheter is in place. PICC line was placed yesterday while I J line was removed. EEG showing no seizure-like activity but rather he has metabolic encephalopathy. Workup of B12, ammonia and TSH/T4 are nonrevealing for his mental status change. Patient is followed closely by several consultants including cardiology, pulmonary, nephrology and urology. Infectious disease help her with managing his antibiotics. Patient will need to ECF for rehab and antibiotic therapy upon discharge 03/21/2019 patient is more awake but still confused, hemodynamically stable but is tachypneic with a breathing rate 20-26.sodium improved to 149, creatinine 2.2, glucose is 155. His been followed by several consultants including pulmonary, most likely patient has metabolic encephalopathy secondary to his his SBE and renal failure with electrolyte abnormality. We'll increase the rate of D5W to 70 mL/h as sodium is 149 03/22/2019 Patient is more oriented to day, however he still somewhat confused. His more drowsy and make up easily to verbal and tactile stimuli and he answers some questions appropriately. Vitals stable. Glucose controlled sodium is 144. Creatinine 2.0. Magnesium 2.8. Patient is being followed by several consultants. Sodium is 144 and so we lowered his D5W to 60 mL/h. He got 1 dose of Lasix. Prognosis remains guarded Objective - Vital Signs Vital signs: Vital Signs Temp 97.7 F 03/22/19 12:00 Pulse 65 03/22/19 12:00 Resp 18 03/22/19 12:00 BP 114/79 03/22/19 12:00 Pulse Ox 95 03/22/19 12:00 Intake & Output 03/21/19 03/22/19 03/22/19 18:59 06:59 18:59 Intake Total 1080 Output Total 500 250 Balance 580 -250 Intake: Oral 1080 Output: Urine 500 250 Other: Voiding Method Indwelling Catheter Indwelling Catheter Indwelling Catheter ABP, PAP, CO, CI - Last Documented Arterial Blood Pressure 105/93 - Exam -GENERAL: The patient is intubated and sedated HEENT: Pupils are round and equally reacting to light. EOMI. No scleral icterus. No conjunctival pallor. Normocephalic, atraumatic. No pharyngeal erythema. No thyromegaly. CARDIOVASCULAR: S1 and S2 present. No murmurs, rubs, or gallops. PULMONARY: Chest is clear to auscultation, no wheezing or crackles. ABDOMEN: Soft, nontender, nondistended, normoactive bowel sounds. No palpable organomegaly. MUSCULOSKELETAL: No joint swelling or deformity. EXTREMITIES: No cyanosis, clubbing, or pedal edema. NEUROLOGICAL: Gross neurological examination did not reveal any focal deficits. SKIN: No rashes. no petechiae. - Labs CBC & Chem 7: 03/20/19 09:23 03/22/19 05:27 Labs: Abnormal Lab Results - Last 24 Hours (Table) 03/21/19 03/21/19 03/22/19 Range/Units 16:46 20:53 05:27 BUN 70 H (9-20) mg/dL Creatinine 2.09 H (0.66-1.25) mg/dL Glucose 145 H (74-99) mg/dL POC Glucose (mg/dL) 198 H 152 H (75-99) mg/dL Magnesium 2.8 H (1.6-2.3) mg/dL 03/22/19 03/22/19 Range/Units 06:31 11:40 BUN (9-20) mg/dL Creatinine (0.66-1.25) mg/dL Glucose (74-99) mg/dL POC Glucose (mg/dL) 133 H 148 H (75-99) mg/dL Magnesium (1.6-2.3) mg/dL Assessment and Plan Assessment: Cardiogenic and septic shock . Improved Acute on chronic systolic congestive heart failure with ejection fraction 20- 25%, on the top of history of severe ischemic cardiomyopathy. 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, secondary to enterococcus infection Systemic inflammatory response with leukocytosis and tachypnea Metabolic encephalopathy, mostly secondary to above Mild hypernatremia Possible None STEMI on admission, status post cardiac cath showing patent stents Acute kidney injury, secondary to shock states, goes more with cardiorenal syndrome acute hypoxic respiratory failure, status post intubation and mechanical ventilation History of coronary artery disease History of valvular heart disease Hypertension Hyperlipidemia COPD/asthma Plan: This is a 73 years old male who presents with septic shock secondary to SBE. Continue with antibiotics as per infectious disease recommendation, for 6 more weeks and currently he is on Unasyn and ceftriaxone, continue with oxygen and follow-up with pulmonary/critical team. Patient is on Lasix. . Follow-up cardiology recommendations. Follow-up neurology recommendation and his workup requested. Ordered. Follow-up WBC and creatinine.Labs and medication were reviewed. Continue same treatment. Continue with symptomatic treatment. Resume home medication. Monitor lytes and vitals. DVT and GI prophylaxis. Further recommendations of the clinical course of the patient DVT prophylaxis: Subcutaneous heparin GI Prophylaxis: Protonix Prognosis is guarded
[2019-03-22 16:39] LABS: Glucose,Whole Blood 121 mg/dL (75-99)
[2019-03-22 21:29] LABS: Glucose,Whole Blood 97 mg/dL (75-99)
[2019-03-22] MEDS: CLOPIDOGREL 75 MG TAB PO SCH (21:49)
[2019-03-23] MEDS: IPRATROPIUM-ALBUTEROL 3 ML NEB INHALATION PRN ×2 (00:45→04:17)
[2019-03-23] MEDS: DEXTROSE 5% IN WATER 1,000 ML IV SCH (03:34)
[2019-03-23 06:19] LABS: Glucose,Whole Blood 129 mg/dL (75-99)
[2019-03-23 06:23] LABS: Anisocytosis Slight; Basophils # (A) 0.1 k/uL (0-0.2); Basophils % (A) 1 %; Eosinophils # (A) 0.2 k/uL (0-0.7); Eosinophils % (A) 2 %; HGB 11.4 gm/dL (13.0-17.5); Hypochromasia Marked; Lymphocytes # (A) 1.1 k/uL (1.0-4.8); Lymphocytes % (A) 10 %; MCH 28.3 pg (25.0-35.0); MCHC 28.5 g/dL (31.0-37.0); MCV 99.5 fL (80.0-100.0); Macrocytosis Moderate; Monocytes # (A) 0.6 k/uL (0-1.0); Monocytes % (A) 6 %; Neutrophils # (A) 8.8 k/uL (1.3-7.7); Neutrophils % (A) 80 %; Platelet Count 192 k/uL (150-450); RBC 4.02 m/uL (4.30-5.90); RDW 19.2 % (11.5-15.5); WBC 11.1 k/uL (3.8-10.6)
[2019-03-23] MEDS: INSULIN ASPART (NovoLOG) 100 UNIT/ML VIAL SQ SCH ×4 (06:34→21:14)
[2019-03-23 06:54] LABS: Calcium 8.4 mg/dL (8.4-10.2); Potassium 3.7 mmol/L (3.5-5.1)
[2019-03-23] MEDS: IPRATROPIUM-ALBUTEROL 3 ML NEB INHALATION SCH ×4 (08:32→19:13)
--- NOTE | 2019-03-23 09:01 | P.PN ---
Subjective This is a pleasant 73 years old male with past medical history of coronary artery disease patient , , heart failure, asthma, GERD, hyperlipidemia, h ypertension, osteoarthritis, valvular heart disease. Patient was admitted with non-STEMI, he underwent cardiac cath on 03/03/2019, showing patent stents and coronaries. Also patient underwent elective EP study yesterday and status post AICD placement, patient is currently in the ICU intubated and could not provide information, he was extubated for short time before he needed reintubation. Information was taken from the staff at the medical records as patient cannot contribute to history . He has low ejection fraction 20-25%. Patient is obese and he needed low dose of pressors. He has distended abdomen, possibly from fat. No focal neurological findings. Also he has positive blood culture with enterococcus and trending up leukocytes. Infectious disease was consulted, patient is currently on Zosyn. Also patient creatinine is trending up however patient is making reasonable urine output, he was on Lasix drip but this was stopped. 03/07/2019 Patient in the ICU intubated and sedated, his vitals with blood pressure 130/54, and he is saturating 98%. His WBC is back to normal at 10.5. Creatinine is at 2.14 with slight improvement down from 2.6 yesterday. He has several blood culture positive for enterococcus. Chest x-ray showing no significant change. Patient has been evaluated by client relationship executive and product assembler, product assembler considering LISSET if blood culture remains positive. Patient also was started on gentamicin and Unasyn as per infectious disease recommendation 03/08/2019 Patient remains in the ICU, he still intubated and sedated. Blood pressure 108/52, saturating 96%, heart rate is 70. K, hemoglobin is stable at 10.4, platelets are within normal limits. Creatinine is improving gradually down to 1.7, electrolytes included sodium and potassium are within normal limits, sugar is running between 129-155. Magnesium is elevated at 2.5,. He has several bloo d culture that's positive for group D enterococcus faecalis, cardiology R following the case and the plan is for transesophageal echocardiogram tomorrow to rule out endocarditis 03/09/2019 Patient is ICU intubated and sedated, patient is planned to go for transesophageal echocardiogram today to rule out endocarditis in view of his persistent bacteremia/septicemia. Patient remains currently on Unasyn. Patient is slightly bradycardic at 57-60, he had low-grade temperature yesterday of 100.2, blood pressure 102/58, lap showing mild leukocytosis of 12.3 K, hemoglobin is stable. Creatinine is improving to 1.75. ABGs showed pH of 7.4, pCO2 42 which are within normal limits, pO2 is 120. Repeat blood cultures are pending, repeat chest x-ray from today showing fluid overload with interstitial edema with possible atelectasis. 03/10/2019 Patient remains in the ICU intubated and sedated, yesterday he had a LISSET which showing low ejection fraction around 20% with agitation note dictated on the aortic valve. Also patient noted to bleed easily given from subcutaneous injection site, currently is on subcu heparin to 8 which is lower to every 12 this morning, he is also on aspirin and Plavix, platelets are normal. We don't to check PT and INR and PTT today. Last night patient was started on Cardizem drip for better control of his blood pressure and heart rate and blood pressure. Patient is followed closely by cardiology and rectal care team. Prognosis is extremely poor 03/11/2019 Patient remains in the ICU, he is intubated and sedated. Patient failed weaning trials today by the pulmonary team. Patient is still tachycardic and he was started on Cardizem drip today, blood pressure 111/66. mild leukocytosis of 11.4 k, hemoglobin 10.2, sodium is 148, creatinine 1.8, compared to 1.7 yesterday. repeat blood cultures still shown enterococcus. the patient remains on unasyn and ceftriaxone currently with infectious disease followed the case closely. patient is following closely by cardiology and pulmonary/critical care team. prognosis remains guarded 03/12/2019 Patient remains in the ICU in critical condition, he is intubated and sedated however he is undergoing wound and a trial which has been failed previously. Blood pressure on the low side 66/38, wbc of 10.2 k, hemoglobin 10.1. his creatinine is stable at 1.7, high sodium on 148. Sugar is controlled at the r bo of 120-143. Repeat blood culture from 03/10 and 03/09 still pending which shows no growth so far. Repeat chest x-ray showed stable findings. His been followed closely by several consultants including cardiology, critical care and infectious disease recommended to continue with Unasyn and ceftriaxone for 6 weeks. Subjective 03/16/2019 Patient remains in the ICU. Is a status post extubation. Currently he is on oxygen nasal cannula 6 L/m with his oxygen saturation at 99%. Rest of vitals show a respiratory rate of 22-25, with tachycardia 108 07/11/2013, rest of vitals stable and patient is afebrile for the last few days. Labs showing resistant leukocytosis at 16.8 K, creatinine stable at 2.0. He has no chest pain, no headache. No change in bowel habits. He remains on Unasyn and ceftriaxone as per infectious disease recommendation, his Lasix was lowered to 40 mg IV daily, and he is off the amiodarone drip and currently is on amiodarone pills at 200 mg twice daily. Patient is able to eat and drink so D5W was stopped. Pain is controlled. 03/17/2019 Patient gives improving, he is awake and oriented, he knows why he is in the hospital. He feels generally weak and still short of breath. He is saturating 78-88% on room air, however patient is non-adherent to his oxygen therapy and he keeps taken off his nasal cannula. His saturation goes up to 97% on 4 L oxygen via high flow cannula. No chest pain. Slightly tachycardic. Blood pressure s table. Still have leukocytosis of 15.9 and creatinine stable at 2.1. Sugar control. Patient remains on Unasyn and ceftriaxone and he will need a PICC line and prolonged antibiotic course. ECF is recommended for patient upon discharge. Also is on Lasix 40 mg twice daily and amiodarone 200 mg twice daily basis metoprolol 75 mg 3 times daily. Pain controlled Discussed with the staff today 03/18/2019 Patient was transported to the select unit at the general medical floor. He is awake and alert, he still short of breath with decreased air entry in both sides, however he denies chest pain, his Kassy to tolerate his diet. His Vitas looks stable. Patient has persistent leukocytosis at 15.9 K, creatinine is 2.3. And sugars controlled. Patient remains on Unasyn and Rocephin per infectious disease team with cardiology and pulmonary team R following closely. 03/19/2019 Family concern that the patient was still not at his baseline mental status and they were asking for neurology evaluation. Neurologist recommended repeat CT of the head, EEG, with lab work including TSH ammonia and vitamin B12. Patient is still short of breath with abdominal distention. He is profoundly weak and yesterday did not participate with physical therapy. Cardiology and infectious disease R following the case closely and they cleared the patient for PICC line as he has negative blood culture on repeat testing. On for him for prolonged antibiotics for 6 weeks. Lap showing persistent leukocytosis of 16.1 K, creatinine 2.4 and sodium 147. Patient is followed closely by pulmonary and renal team. Patient has couple of loose bowel movements. We will order abdominal x-rays 03/20/2019 Patient in the general medical floor, is awake and oriented to place but not to time or person, he answers some questions appropriately and follow commands. He does not look in distress. He denies chest pain or dyspnea. His Vitas looks stable however he still feels a bit tachypneic, his saturating 100% on 2 L oxygen via nasal cannula. He still have mild leukocytosis of 16.1 K creatinine is 2.4, that is from yesterday repeat labs from today showing hypernatremia with sodium 151, patient was started on D5W.. Diaz catheter is in place. PICC line was placed yesterday while I J line was removed. EEG showing no seizure-like activity but rather he has metabolic encephalopathy. Workup of B12, ammonia and TSH/T4 are nonrevealing for his mental status change. Patient is followed closely by several consultants including cardiology, pulmonary, nephrology and urology. Infectious disease help her with managing his antibiotics. Patient will need to ECF for rehab and antibiotic therapy upon discharge 03/21/2019 patient is more awake but still confused, hemodynamically stable but is tachypneic with a breathing rate 20-26.sodium improved to 149, creatinine 2.2, glucose is 155. His been followed by several consultants including pulmonary, most likely patient has metabolic encephalopathy secondary to his his SBE and renal failure with electrolyte abnormality. We'll increase the rate of D5W to 70 mL/h as sodium is 149 03/22/2019 Patient is more oriented to day, however he still somewhat confused. His more drowsy and make up easily to verbal and tactile stimuli and he answers some questions appropriately. Vitals stable. Glucose controlled sodium is 144. Creatinine 2.0. Magnesium 2.8. Patient is being followed by several consultants. Sodium is 144 and so we lowered his D5W to 60 mL/h. He got 1 dose of Lasix. Prognosis remains guarded 03/23/2019 Patient is more awake and oriented today, he is easily answering questions more easily and he remembers he is at [facility] in [place]. However he could not remember what his medical problem and why he was in the hospital. Hemodynamically stable. Sodium skin down to 139 creatinine 1.99. Sugars controlled. Leukocytosis improving down to 11.1 K.we will dc his d5w and encourage oral hydration Objective - Vital Signs Vital signs: Vital Signs Temp 98 F 03/23/19 04:00 Pulse 64 03/23/19 08:34 Resp 20 03/23/19 04:00 BP 113/72 03/23/19 04:00 Pulse Ox 100 03/23/19 04:00 Intake & Output 03/22/19 03/23/19 03/23/19 18:59 06:59 18:59 Intake Total 60 Output Total 600 200 Balance -540 -200 Weight 121.5 kg Intake: Oral 60 Output: Urine 600 200 Other: Voiding Method Indwelling Catheter Indwelling Catheter ABP, PAP, CO, CI - Last Documented Arterial Blood Pressure 105/93 - Exam -GENERAL: The patient is more awake and alert and oriented 3, however he still gets confused at times HEENT: Pupils are round and equally reacting to light. EOMI. No scleral icterus. No conjunctival pallor. Normocephalic, atraumatic. No pharyngeal erythema. No thyromegaly. CARDIOVASCULAR: S1 and S2 present. No murmurs, rubs, or gallops. PULMONARY: Chest is clear to auscultation, no wheezing or crackles. ABDOMEN: Soft, nontender, nondistended, normoactive bowel sounds. No palpable organomegaly. MUSCULOSKELETAL: No joint swelling or deformity. EXTREMITIES: No cyanosis, clubbing, or pedal edema. NEUROLOGICAL: Gross neurological examination did not reveal any focal deficits. SKIN: No rashes. no petechiae. - Labs CBC & Chem 7: 03/23/19 05:27 03/23/19 05:27 Labs: Abnormal Lab Results - Last 24 Hours (Table) 03/22/19 03/22/19 03/23/19 Range/Units 11:40 16:30 05:27 WBC 11.1 H (3.8-10.6) k/uL RBC 4.02 L (4.30-5.90) m/uL Hgb 11.4 L (13.0-17.5) gm/dL MCHC 28.5 L (31.0-37.0) g/dL RDW 19.2 H (11.5-15.5) % Neutrophils # 8.8 H (1.3-7.7) k/uL BUN (9-20) mg/dL Creatinine (0.66-1.25) mg/dL Glucose (74-99) mg/dL POC Glucose (mg/dL) 148 H 121 H (75-99) mg/dL 03/23/19 03/23/19 Range/Units 05:27 06:17 WBC (3.8-10.6) k/uL RBC (4.30-5.90) m/uL Hgb (13.0-17.5) gm/dL MCHC (31.0-37.0) g/dL RDW (11.5-15.5) % Neutrophils # (1.3-7.7) k/uL BUN 67 H (9-20) mg/dL Creatinine 1.99 H (0.66-1.25) mg/dL Glucose 117 H (74-99) mg/dL POC Glucose (mg/dL) 129 H (75-99) mg/dL Assessment and Plan Assessment: Cardiogenic and septic shock . Improved Acute on chronic systolic congestive heart failure with ejection fraction 20- 25%, on the top of history of severe ischemic cardiomyopathy. 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, secondary to enterococcus infection Systemic inflammatory response with leukocytosis and tachypnea Metabolic encephalopathy, mostly secondary to above Mild hypernatremia Possible None STEMI on admission, status post cardiac cath showing patent stents Acute kidney injury, secondary to shock states, goes more with cardiorenal syndrome acute hypoxic respiratory failure, status post intubation and mechanical ventilation History of coronary artery disease History of valvular heart disease Hypertension Hyperlipidemia COPD/asthma Plan: This is a 73 years old male who presents with septic shock secondary to SBE. Continue with antibiotics as per infectious disease recommendation, for 6 more weeks and currently he is on Unasyn and ceftriaxone, continue with oxygen and follow-up with pulmonary/critical team. hold on Lasix. dc d5w and encourage oral hydration . Follow-up cardiology recommendations. Follow-up neurology recommendation and his workup requested. Ordered. Follow-up WBC and creatinine.Labs and medication were reviewed. Continue same treatment. Continue with symptomatic treatment. Resume home medication. Monitor lytes and vitals. DVT and GI prophylaxis. Further recommendations of the clinical course of the patient DVT prophylaxis: Subcutaneous heparin GI Prophylaxis: Protonix Prognosis is guarded
[2019-03-23] MEDS: AMPICILLIN-SULBACTAM 3 GM in SODIUM CHLORIDE 0.9% 100 ML IVPB SCH ×3 (09:27→21:27)
[2019-03-23] MEDS: PANTOPRAZOLE 40 MG/10 ML VIAL IVP SCH (09:27)
[2019-03-23] MEDS: HEPARIN SODIUM,PORCINE 5,000 UNIT/ML 1 ML VIAL SQ SCH ×2 (09:28→21:27)
[2019-03-23] MEDS: ATORVASTATIN 40 MG TAB PO SCH (09:28)
[2019-03-23] MEDS: ASPIRIN 81 MG PO SCH (09:28)
[2019-03-23] MEDS: METOPROLOL TARTRATE 50 MG TAB PO SCH ×3 (09:28→21:26)
[2019-03-23] MEDS: AMIODARONE 200 MG TAB PO SCH ×2 (09:28→21:27)
--- NOTE | 2019-03-23 11:25 | P.PN ---
Subjective Patient agrees be comfortable. Does not appear to be short of breath respirations are nonlabored this very rate 16-18 Denies any chest discomfort or dizziness on examination blood pressure 1806. His mercury pulse rate in the 60s, pulse ox 96% Breath sounds are reduced bilaterally Heart sounds S1 and S2 are soft no murmurs Abdomen is soft 70 obesity noted Impression Severe cardio myopathy Severe heart failure Aortic valve replacement Endocolitis Status post biventricular ICD Extubated now CK be creatinine 1.99 BUN 67 potassium 3.7 ICD site does not show any evidence for superficial infection Suggest Reduce amiodarone to 200 mg twice daily Continue aspirin atorvastatin and Plavix Continue metoprolol 100 mg 3 times a day Objective - Vital Signs Vital signs: Vital Signs Temp 97.6 F 03/23/19 08:00 Pulse 64 03/23/19 08:34 Resp 20 03/23/19 08:00 BP 118/76 03/23/19 08:00 Pulse Ox 96 03/23/19 08:00 Intake & Output 03/22/19 03/23/19 03/23/19 18:59 06:59 18:59 Intake Total 60 Output Total 600 200 700 Balance -540 -200 -700 Weight 121.5 kg Intake: Oral 60 Output: Urine 600 200 700 Other: Voiding Method Indwelling Catheter Indwelling Catheter Indwelling Catheter # Bowel Movements 1 ABP, PAP, CO, CI - Last Documented Arterial Blood Pressure 105/93 - Labs CBC & Chem 7: 03/23/19 05:27 03/23/19 05:27 Labs: Abnormal Lab Results - Last 24 Hours (Table) 03/22/19 03/22/19 03/23/19 Range/Units 11:40 16:30 05:27 WBC 11.1 H (3.8-10.6) k/uL RBC 4.02 L (4.30-5.90) m/uL Hgb 11.4 L (13.0-17.5) gm/dL MCHC 28.5 L (31.0-37.0) g/dL RDW 19.2 H (11.5-15.5) % Neutrophils # 8.8 H (1.3-7.7) k/uL BUN (9-20) mg/dL Creatinine (0.66-1.25) mg/dL Glucose (74-99) mg/dL POC Glucose (mg/dL) 148 H 121 H (75-99) mg/dL 03/23/19 03/23/19 Range/Units 05:27 06:17 WBC (3.8-10.6) k/uL RBC (4.30-5.90) m/uL Hgb (13.0-17.5) gm/dL MCHC (31.0-37.0) g/dL RDW (11.5-15.5) % Neutrophils # (1.3-7.7) k/uL BUN 67 H (9-20) mg/dL Creatinine 1.99 H (0.66-1.25) mg/dL Glucose 117 H (74-99) mg/dL POC Glucose (mg/dL) 129 H (75-99) mg/dL
[2019-03-23] MEDS: NYSTATIN 100,000 UNIT/GM OINT 30 GM TUBE TOPICAL SCH ×2 (11:52→21:27)
[2019-03-23 12:11] LABS: Glucose,Whole Blood 240 mg/dL (75-99)
[2019-03-23] MEDS: ACETAMINOPHEN TAB 325 MG TAB PO PRN (12:19)
--- NOTE | 2019-03-23 13:43 | PN ---
PROGRESS NOTE Patient is seen for followup for acute kidney injury and hypernatremia. His serum sodium has improved. The patient was maintained on D5W. Serum creatinine remains stable at 1.9. Mentation has improved. PHYSICAL EXAMINATION: On examination, blood pressure was 118/76, heart rate 96 per minute. He is afebrile. EXAMINATION OF THE HEART: S1, S2. EXAMINATION OF THE LUNGS: Decreased breath sounds at bases. Abdomen is soft, nontender, distended, obese. Examination of lower extremities shows edema 1+ bilaterally. CARPENTER MAINTENANCE EXAM: Grossly intact. LABS: Labs show sodium 139, potassium 3.7, BUN 67, creatinine 1.9, hemoglobin 11.4 g/dL. ASSESSMENT: 1. Acute kidney injury acute tubular necrosis currently stable. 2. Hypernatremia secondary to free water deficit, now improved. 3. Sepsis secondary to endocarditis with Enterococcus faecalis bacteremia, maintained on antibiotics. 4. Atrial fibrillation, controlled rate, maintained on amiodarone and Lopressor. 5. Volume overload. PLAN: Discontinue D5W. I will add oral Lasix. Patient should be encouraged to increase his free water intake to avoid recurring hypernatremia. If he is discharged, we need to monitor electrolytes closely. MMODL / IJN: [id number] /
[2019-03-23 17:04] LABS: Glucose,Whole Blood 114 mg/dL (75-99)
[2019-03-23] MEDS: FUROSEMIDE 40 MG TAB PO SCH (17:06)
--- NOTE | 2019-03-23 18:41 | P.PN ---
Subjective Progress Note Date: 03/23/19 Principal diagnosis: Acute hypoxic respiratory failure secondary to cardiogenic shock and septic shock, acute endocarditis This is a 71-year-old male patient with known history of ischemic cardiomyopathy along with known history of coronary artery disease and previous aortic valve replacement, AVR, and previous coronary artery bypass surgery, who presented to the hospital because of chest pain and non-STEMI. The patient has had previous catheterizations with stenting done in the distal left main as well as the proximal circumflex. He has a chronically totally occluded RCA. As mentioned, the patient was admitted with chest pain or shortness of breath and acute non-STEMI. The patient underwent another cardiac catheterization and the patient was found to have taken stent to the distal left mainstem to proximal circumflex, patent BELTRAN to LAD, chronic totally occluded RCA. Recommendations were mainly to maximize medical management. The patient was being treated for congestion heart failure. He was receiving Lasix drip and he was having ongoing orthopnea. He was taken yesterday to the [facility] and the patient was given biventricular pacing/AICD. Noted postop, the patient was extubated. He became short of breath and went into significant amount of respiratory distress and within 10 minutes she had to be reintubated. He was brought into the intensive care unit intubated on a mechanical ventilator. Initial blood gases showed a pH of 7.28 with a pCO2 of 51 and pO2 of 234. Necessary vent changes were done. The most recent blood gas showed a pH of 7.48 with a pCO2 of 28 and pO2 of 229. The morning vent settings include a tidal volume 400 with a rate of 18 and FiO2 of 40% with 5. The setting was adjusted based on the most recent blood gas. I noted that the patient is also on pressors and overnight the patient has required norepinephrine infusion and currently is running at 0.1 mcg/kg per minute. The patient is also on Lasix drip at 10 mg an hour. He is producing urine output. However, the patient has developed an acute kidney injury. Cr eatinine was normal at the time of admission on 02/27/2019 and there has been progressive rise in the creatinine which is up to 2.6 at this point in time. He was he was developing fevers with a temperature 11.6 on 03/04/2019. The patient has blood culture sent a blood culture came back positive for enterococcus group D. The patient was on cefazolin. IV Zosyn was added by the primary care team. This morning, the patient is sedated with propofol is currently running at 50 mics. His, comfortable. He is producing urine output. Her net fluid balance is -642 mL for yesterday. His cardiac rhythm is paced. His white cell count is 19.4. He is obviously septic condition with a positive blood culture. UA the time of admission was negative. He has a Diza catheter in place. Abdomen is soft. His umbilical hernia. Surgical wound site over the left biventricular pacemaker is dry clean and intact. No significant orotracheal secretions. Chest x-ray from today shows cardiomegaly and lower lobe consolidation as the patient is a left lower lobe consolidation of the right upper lobe! The echocardiogram at shown an ejection fraction of 20-25%. There is moderate concentric left ventricular hypertrophy. There is severe global hypokinesis. No pericardial effusion. The peak gradient across the aortic valve was 35 mmHg. It is a normal functioning bioprosthetic valve. There is moderate mitral regurgitation. Mild pulmonary hypertension. on 03/07/2019 the patient remains sedated and intubated on mechanical ventilator. The patient is on propofol for sedation. The patient is also on a mechanical ventilator on assist control mode with a tidal volume of 000 and the rate of 18 with an FiO2 of 40% and PEEP of 5. The chest x-ray from today shows stable findings and there is left lower lobe consolidation/effusion. ET tube is in a good location. The left ear showed a pH of 7.44 with a pCO2 of 34 and pO2 of 131. Based on this, there is a component of respiratory alkalosis and I dropped a respiratory rate down to 14. The telephone was kept at 500 for now. I took this patient off the Lasix therapy yesterday as the patient's CVP was running low and the patient was also developing acute kidney injury. Today CVP is also low measuring as high as 4-5 millimeters of mercury. Based on that, the patient was started on oral Lasix set of IV Lasix for cardiology. He is prod ucing adequate amount of urine output. Creatinine is also improving and is down to 2.1. The patient is afebrile. The patient was seen by infectious disease. Antibiotic adjustments were done and the patient was placed on a combination of Unasyn and gentamicin. No clear indication for endocarditis. The patient has 3 positive blood culture that was positive for E faecalis, in the patient was si mplified back to Unasyn and gentamicin was discontinued as the patient was found to be having a Enterococcus faecalis resistant to gentamicin.. The patient is producing adequate amount of urine output. He is still on pressors and the present doses been weaned down to 0.07 micrograms per kilogram per minute of norepinephrine infusion. The patient will be started on enteral feeding for nutritional support. Cardiology is on the case. Cardiac rhythm remains paced. No significant electrolyte imbalance in the patient's white cell count is down to 10.5. 03/08/2019, the patient remains intubated on a mechanical ventilator. The patient remains hemodynamically unstable requiring pressors and the norepinephrine infusion is running at 0.08 mcg/kg per minute. He is also on Prinivil at 40 mics per KG. The patient a mechanical ventilator on assist control mode with a tidal volume of 500 and rate of 18 with an FiO2 of 40% and a PEEP of 5. Chest x-ray is unchanged compared to yesterday and there are some white pulmonary vessel congestion. The patient is producing 25 mL of urine output on an hourly basis. Net fluid balance is positive to 11 mL over the past 24 hours. He is currently on oral Lasix. He is also on norepinephrine infusion. He is on enteral feeding for nutritional support. He is receiving before for sedation. Note that all of the blood cultures came back positive for Enterococcus faecalis. The patient remains on IV Unasyn. Follow-up cultures were obtained to make sure there is no ongoing bacteremia. There is a high likely what that it there may be a component of infective endocarditis. The patient will need a LISSET to evaluate this further. His cardiac rhythm is paced. The fibrillator pocket is clean and intact at this point in time. As for his continued kidney injury, the patient's creatinine is improving and the creatinine is down to 1.72. The white cell count is also down to 10.5 and the patient is responding to IV Unasyn for now. Reevaluated today on 03/09/2019, patient remains on mechanical ventilation, he is still on norepinephrine at 0.05 mcg/kg/m, still on propofol at 50 mcg/kg/m. He is on mechanical ventilation, assist control rate of 18, FiO2 is 40%, PEEP of 5. Tidal volume is 500. Transesophageal echocardiogram is suspicious for vegetations involving the aortic bioprosthetic valve there was also evidence of thickened mitral valve leaflets with moderate mitral regurgitation. His LV function was noted to be impaired ejection fraction of 20%. ABG this morning showed a pO2 of 120 pCO2 of 42 pH of 7.42 11 lites are normal renal profile is abnormal with BUN of 42 creatinine of 1.75 WBC count is 12.3 hemoglobin is 10.2. Chest x-ray is suspicious for mild interstitial edema and small bilateral pleural effusions. There is also some retrocardiac atelectasis. Patient is sedated, on mechanical ventilation, I have no plans to wean the patient today since LISSET was scheduled to be done shortly after I evaluated the patient. Patient was reevaluated today on 03/10/2019, remains on mechanical ventilation, his ventilator settings are assist control rate of 14 FiO2 is 40% PEEP is 5 tidal volume is 500. Patient is on Cardizem drip as per cardiology 5 mg per hour, his also on metoprolol, and he is on norepinephrine at 0.05 mcg/kg/m. Propofol is 25 mcg/kg/m. Chest x-ray showed cardiomegaly and prominent pulmonary vasculature with minimal basilar atelectasis. ABG showed a pO2 of 117 pCO2 of 43 pH of 7.45. WBC count is 14.8 hemoglobin is 10.5. Electrolytes are relatively normal. Renal profile showed a BUN of 42 creatinine of 1.70. Patient remains sedated, however I plan to hold his sedation today, and hopefully assess mental status and decide whether we can proceed with any further weaning trials. Family is at bedside and they were updated on his condition and on the fact that he has endocarditis. Antibiotics were addressed by Dr. Nguyễn, patient is now on Unasyn. He also remains on Rocephin. Reevaluated today on 03/11/2019, remains in the ICU on mechanical ventilation. His ventilator settings are assist control rate of 14, tidal volume is 500 FiO2 of 35% PEEP is 5. Remains on propofol at 30 mcg/kg/m, he is off pressors. ABG this morning showed a pO2 of 103 pCO2 of 39 pH of 7.50. Electrolytes are normal however his BUN is 51 creatinine is 1.84. WBC count is 11.4 hemoglobin is 10.2. Patient remains on nutritional support via enteral feeding. Remains on antibiotics for his underlying endocarditis as per infectious disease. Yesterday the patient was given a sedation interruption, and a trial of weaning, however he was extremely agitated, restless, and could not go on to wean or extubated the patient. This would be reattempted again today. Reevaluated today in the ICU on 03/12/2019, patient remains on mechanical ventilation, his ventilator settings are tidal volume of 500 assist control rate of 14 FiO2 35% PEEP of 5. Patient remains on propofol, presently off norepinephrine, patient was given a weaning trial yesterday, however he became extremely tachycardic, and restless agitated. Today I plan to wean the patient slowly on Precedex to be started after stopping propofol. Patient will be awakened and will be given definitely a weaning trial today. Depending on how he does on pressure support and CPAP, may or may not proceed to full extubation. Chest x-ray is showing mild congestive changes. ABG this morning showed a pO2 of 77 pCO2 of 45 pH of 7.48 electrolytes showed elevated sodium of 148 BUN is 61 creatinine 1.78. Bicarb is 34 WBC count is 10.2 hemoglobin is 10.1. Patient remains on antibiotics, not requiring pressors at this point, has been intermittently on and off norepinephrine Reevaluated today on 03/13/2019, patient was extubated from mechanical venti lation yesterday, patient is presently on high flow nasal cannula, O2 saturation is in the mid 90s, tolerated the extubation well since yesterday. Chest x-ray continues to show evidence of mild congestive heart failure. However the patient has elevated sodium today, it is 153, and I have switched his IV fluid to D5W, will hold on the Lasix for now, and he will receive D5W at 50 mL per hour. Patient received Lasix earlier today by nephrology. Patient remains on antibiotics for his endocarditis. And he is hemodynamically stable at present. Reevaluated today on 03/14/2019, patient remains off mechanical ventilation, on high flow nasal cannula, O2 saturation is excellent. Chest x-ray showed mild interstitial edema. Patient continues to have intermittent episodes of confusion and disorientation. CT of the head is negative for septic emboli involving the brain. Sodium remains a bit elevated, and the process of correcting his sodium with D5W. Lasix is still on hold. BUN is 69 creatinine is 1.99 sodium today is 150. is at bedside, and she was updated on his condition, and explained to her that the patient may have metabolic encephalopathy. Related to his hypernatremia and sepsis with bacteremia. Patient was reevaluated today on 03/15/2019, seems to be doing fairly well, remains off mechanical ventilation,he is steadily improving, Denies any specific complaints,his mental status seems to be intermittently waxing and waning. But today he seems to be more appropriate.chest x-ray continues to show evidence of interstitial edema/CHF, his electrolytes are improving sodium is down to 146. BUN is 75 creatinine is 2.19. ABG last night showed a pO2 of 61 pCO2 48 pH of 7.43, hence his FiO2 was increased and he is presently on 6 L nasal cannula. On 03/17/2019 patient seen in follow-up in the intensive care unit, he is awake and alert, in no acute distress, he is currently on room air, with a pulse ox of 92%, maintenance IV fluids are present and normal saline at a rate of 10 ML per hour, denies any worsening dyspnea, lung sounds reveal a few scattered wheezes, no rhonchi, no rales. No altered mentation, no fever or chills, vital signs are stable. Follow up blood cultures are negative from 03/09/2019, and 03/10/2019. Patient is a combination of Unasyn and Rocephin for antibiotic coverage. No acute events overnight, today's labs have been reviewed, showing blood cell count of 15.9, hemoglobin of 11.1, electrolytes within normal limits, renal profile is stable, with BUN of 75 and creatinine of 2.10. On 03/23/2019 patient seen in follow-up on selective care unit, he is awake and alert, in no acute distress, he is currently on 2 L of oxygen is pulse ox is 100%, hemodynamically stable, no complaints of chest pain, no cough or congestion, afebrile, patient is on Unasyn for enterococcus bacteremia, follow blood cultures from March 09 and 03/10/2019 have shown no growth so far. Patient is on oral Lasix, renal profile is improving, patient is awake and alert, oriented 3, no altered mentation. Right IJ has been discontinued, patient has a PICC line put in. In the plan is for patient to complete 6 weeks of Unasyn for bacteremia, patient remains in atrial fibrillation, with a controlled rate, currently on amiodarone and Lopressor, cardiology is following Objective - Vital Signs Vital signs: Vital Signs Temp 97.5 F L 03/23/19 16:00 Pulse 72 03/23/19 16:04 Resp 18 03/23/19 16:00 BP 115/64 03/23/19 16:00 Pulse Ox 100 03/23/19 16:00 Intake & Output 03/22/19 03/23/19 03/23/19 18:59 06:59 18:59 Intake Total 60 240 Output Total 600 200 700 Balance -540 -200 -460 Weight 121.5 kg 121.5 kg Intake: Oral 60 240 Output: Urine 600 200 700 Other: Voiding Method Indwelling Catheter Indwelling Catheter Indwelling Catheter # Bowel Movements 1 ABP, PAP, CO, CI - Last Documented Arterial Blood Pressure 105/93 - Exam GENERAL EXAM: Alert, pleasant, 73-year-old obese white male, 2 L of oxygen per nasal cannula, comfortable in no apparent distress. HEAD: Normocephalic/atraumatic. EYES: Normal reaction of pupils, equal size. Conjunctiva pink, sclera white. NOSE: Clear with pink turbinates. THROAT: No erythema or exudates. NECK: No masses, no JVD, no thyroid enlargement, no adenopathy. CHEST: No chest wall deformity. Symmetrical expansion. LUNGS: Equal air entry with a a few scattered wheezes, and rales CVS: Regular rate and rhythm, normal S1 and S2, no gallops, no murmurs, no rubs ABDOMEN: Soft, obese, nontender. No hepatosplenomegaly, normal bowel sounds, no guarding or rigidity. EXTREMITIES: No clubbing, no edema, no cyanosis, 2+ pulses and upper and lower extremities. MUSCULOSKELETAL: Muscle strength and tone normal. SPINE: No scoliosis or deformity SKIN: No rashes CENTRAL NERVOUS SYSTEM: Alert and oriented -3. No focal deficits, tone is normal in all 4 extremities. PSYCHIATRIC: Alert and oriented -3. Appropriate affect. Intact judgment and insight. - Labs CBC & Chem 7: 03/23/19 05:27 03/23/19 05:27 Labs: Abnormal Lab Results - Last 24 Hours (Table) 03/23/19 03/23/19 03/23/19 Range/Units 05:27 05:27 06:17 WBC 11.1 H (3.8-10.6) k/uL RBC 4.02 L (4.30-5.90) m/uL Hgb 11.4 L (13.0-17.5) gm/dL MCHC 28.5 L (31.0-37.0) g/dL RDW 19.2 H (11.5-15.5) % Neutrophils # 8.8 H (1.3-7.7) k/uL BUN 67 H (9-20) mg/dL Creatinine 1.99 H (0.66-1.25) mg/dL Glucose 117 H (74-99) mg/dL POC Glucose (mg/dL) 129 H (75-99) mg/dL 03/23/19 03/23/19 Range/Units 12:07 16:48 WBC (3.8-10.6) k/uL RBC (4.30-5.90) m/uL Hgb (13.0-17.5) gm/dL MCHC (31.0-37.0) g/dL RDW (11.5-15.5) % Neutrophils # (1.3-7.7) k/uL BUN (9-20) mg/dL Creatinine (0.66-1.25) mg/dL Glucose (74-99) mg/dL POC Glucose (mg/dL) 240 H 114 H (75-99) mg/dL Assessment and Plan Plan: Assessment: 1 acute hypoxic respiratory failure secondary to cardiogenic shock and septic shock. Patient was extubated successfully on 03/12/2019. 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 3 severe LV dysfunction and cardiomyopathy, ischemic in nature, ejection fraction of 20-25% post-insertion of AICD. 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 6 septic shock secondary to enterococcal infection 7 acute kidney injury secondary to sepsis, ATN, and possibly contrast nephr opathy 8 history of underlying COPD, hypertension, hyperlipidemia, obesity, and generalized anxiety disorder. 9 hypernatremia secondary to free water depletion, and diuretics, hence we'll change the IV fluid to D5W, and hydrate the patient cautiously with D5W, and liberalize free water intake 10 acute metabolic encephalopathy secondary to electrolytes imbalance, hypernatremia, and sepsis as well as bacteremia. Plan: Patient is clinically stable, breathing is stable, increase activity as natividad erated, patient continues on Unasyn infusions for enterococcus bacteremia, follow blood cultures have been negative, no fever or chills, A. fib is controlled, vital signs are stable. Will likely need a follow-up echocardiogram at some time. Renal profile is improving, patient continues on oral Lasix. I performed a history & physical examination of the patient and discussed their management with my nurse practitioner, Dana Alexandre. I reviewed the nurse practitioner's note and agree with the documented findings and plan of care. Lung sounds are positive for scattered wheezes throughout the lung nolen. The findings and the impression was discussed with the patient. I attest to the d ocumentation by the nurse practitioner. Time with Patient: Less than 30
--- NOTE | 2019-03-23 18:49 | P.PN ---
Subjective Progress Note Date: 03/23/19 Objective - Vital Signs Vital signs: Vital Signs Temp 97.5 F L 03/23/19 16:00 Pulse 72 03/23/19 16:04 Resp 18 03/23/19 16:00 BP 115/64 03/23/19 16:00 Pulse Ox 100 03/23/19 16:00 Intake & Output 03/22/19 03/23/19 03/23/19 18:59 06:59 18:59 Intake Total 60 480 Output Total 600 200 700 Balance -540 -200 -220 Weight 121.5 kg 121.5 kg Intake: Oral 60 480 Output: Urine 600 200 700 Other: Voiding Method Indwelling Catheter Indwelling Catheter Indwelling Catheter # Voids 2 # Bowel Movements 1 ABP, PAP, CO, CI - Last Documented Arterial Blood Pressure 105/93 - Exam GENERAL EXAM: Alert, confused is improving according to the family se male alfonso horn, on 2 L/m per nasal cannula, comfortable in no apparent distress. HEAD: Normocephalic/atraumatic. EYES: Normal reaction of pupils, equal size. Conjunctiva pink, sclera white. NOSE: Clear with pink turbinates. THROAT: No erythema or exudates. NECK: No masses, no JVD, no thyroid enlargement, no adenopathy. CHEST: No chest wall deformity. Symmetrical expansion. There is a pacemaker pocket over the left anterior chest area. LUNGS: Equal air entry with a few scattered rhonchi, no rales CVS: Regular rate and rhythm, normal S1 and S2, no gallops, no murmurs, no rubs ABDOMEN: Soft, obese, nontender. No hepatosplenomegaly, normal bowel sounds, no guarding or rigidity. EXTREMITIES: No clubbing, no edema, no cyanosis, 2+ pulses and upper and lower extremities. MUSCULOSKELETAL: Muscle strength and tone normal. SPINE: No scoliosis or deformity SKIN: No rashes CENTRAL NERVOUS SYSTEM: Slow to respond. Some altered mental status., tone is normal in all 4 extremities. The patient remains weak and able to raise his arms against gravity at overall motor power is around 3 out of 5 in all 4 e xtremities. PSYCHIATRIC: Alert and oriented -3. Appropriate affect. Intact judgment and insight. - Labs CBC & Chem 7: 03/23/19 05:27 03/23/19 05:27 Labs: Abnormal Lab Results - Last 24 Hours (Table) 03/23/19 03/23/19 03/23/19 Range/Units 05:27 05:27 06:17 WBC 11.1 H (3.8-10.6) k/uL RBC 4.02 L (4.30-5.90) m/uL Hgb 11.4 L (13.0-17.5) gm/dL MCHC 28.5 L (31.0-37.0) g/dL RDW 19.2 H (11.5-15.5) % Neutrophils # 8.8 H (1.3-7.7) k/uL BUN 67 H (9-20) mg/dL Creatinine 1.99 H (0.66-1.25) mg/dL Glucose 117 H (74-99) mg/dL POC Glucose (mg/dL) 129 H (75-99) mg/dL 03/23/19 03/23/19 Range/Units 12:07 16:48 WBC (3.8-10.6) k/uL RBC (4.30-5.90) m/uL Hgb (13.0-17.5) gm/dL MCHC (31.0-37.0) g/dL RDW (11.5-15.5) % Neutrophils # (1.3-7.7) k/uL BUN (9-20) mg/dL Creatinine (0.66-1.25) mg/dL Glucose (74-99) mg/dL POC Glucose (mg/dL) 240 H 114 H (75-99) mg/dL Assessment and Plan Plan: 1 acute hypoxic respiratory failure secondary to cardiogenic shock and 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 The patient was quite septic and hemodynamically unstable. He was treated. With antibiotics. He . needed vent support Patient was extubated successfully on 03/12/2019. currently remains profoundly weak. He is on 2 L about 2 by nasal cannula. 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 the cultures were positive for Enterococcus faecalis and the patient is on IV Unasyn and the repeat blood cultures of been negative from 03/09/2019 and 03/10/2019. He is currently afebrile hemodynamically stable. 3 severe LV dysfunction and cardiomyopathy, ischemic in nature, ejection frac tion of 20-25% post-insertion of AICD. 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 6 septic shock secondary to enterococcal infection 7 acute kidney injury secondary to sepsis, ATN, and possibly contrast nephropathy, improving and creatinine is at 1.9 and a peak creatinine was at 2.2 8 COPD 9 hypernatremia , recovered 10 acute metabolic encephalopathy secondary to electrolytes imbalance, hypernatremia, and sepsis as well as bacteremia. the metabolic encephalopathy is improving. 11 generalized anxiety disorder 12 obesity with a BMI of 42 13 hypertension 14 hyperlipidemia 15 motor weakness and debility secondary to above Plan Continue same treatment. Aggressive physical therapy. PICC line is in place. IV antibiotics at least 6 weeks. Blood cultures of been negative. We'll continue to follow. Overall pulmonary status is stable. More alert and oriented and the confusion and a metabolic encephalopathy is gradually recovering. Currently on 2 L of oxygen by nasal cannula. Heparin subcu for DVT prophylaxis.
[2019-03-23 20:00] LABS: Glucose,Whole Blood 125 mg/dL (75-99)
[2019-03-23] MEDS: CLOPIDOGREL 75 MG TAB PO SCH (21:27)
--- NOTE | 2019-03-23 22:28 | P.PN ---
Subjective Progress Note Date: 03/23/19 This is a 73-year-old male with known history of ischemic cardiomyopathy along with known history of coronary artery disease and previous aortic valve replacement, AVR, and previous coronary artery bypass surgery. He presented on March 01 because of chest pain and found to have non-STEMI. He underwent cardiac catheterization with Dr. Juarez on 03/03 and the patient was found to have patent stent to the distal left mainstem to proximal circumflex, patent BELTRAN to LAD, chronic totally occluded RCA. Recommendations were mainly to maximize medical management. Patient was apparently having runs of V. tach and a consult was added for Dr. Ho. Patient subsequently underwent a biventricular ICD implantation on March 05. Patient was intubated prior to the procedure as apparently he is unable to lay flat for this. He received 700 mL of fluid during procedure. He was extubated last evening for only 3 minutes and was re- intubated. He was given Lasix 40 mg IV push followed by Lasix drip at 10 mg per hour. The Lasix to was discontinued this morning. Patient remains intubated, on sedation and on levo fed. His chest x-ray this morning reveals a right upper lobe pneumonia and probable heart failure. Patient has been running fevers up to 101.6 on evening of 925. White count 20.6, renal function is worsening with a BUN 45 and creatinine 2.6. Urinalysis was clear with nitrate and l eukoesterase negative. Urine output has been on the lower side running about 50 mL per hour or less. Blood culture from 03/04 is group D enterococcus and thus this consult was requested. 03/09/2019 the patient had evidence of isolated enterococcal bacteremia. The case was discussed with cardiology and a LISSET has been performed today which is verified evidence of a vegetation on the bioprosthetic aortic valve. There is no evidence of any ring abscess or of extensive valvular disease. The patient has shown some improvement in that his fever is improved and his leukocytosis is improving. 03/10/2019 patient remains intubated sedated and mechanically ventilated. His oxygen requirements have decreased in with increased dose of beta russell treatment started as some further improvement of his rate and dysrhythmia. He has been seen by cardiovascular surgeon. 03/11/2019 patient had weaning trial not successful to be retried tomorrow. Off of vasopressor therapy and stable. 03/12/2019 patient has had improvement of his status. He is less sedated. He is on CPAP and doing well likely be extubated when he is a bit more awake. 03/13/2019 the patient is extubated sitting upright feeling considerably better able to eat some nutrition. Not having much chest pain shortness of breath is improved. 03/15/2019 Patient has had some further improvement. He is less short of breath. He is without significant discomforts. Able to eat without difficulties. 03/16/2019 reveals the patient has some further improvement. Is more awake and interactive 03/18/2019 the patient has had some further improvement of his status in that he is with less shortness of breath, has required no further vasopressor therapy is responded somewhat well to current interventions. Negative blood cultures have been verified. 03/23/2018 the patient's status has waxed and waned his discharge does continue to be evaluated when he is more stable. Does seem to be having a better day today than prior. He is not having fevers or chills and actually recognizes me by name today. Objective - Vital Signs Vital signs: Vital Signs Temp 97.5 F L 03/23/19 20:00 Pulse 74 03/23/19 20:00 Resp 17 03/23/19 20:00 BP 108/71 03/23/19 20:00 Pulse Ox 98 03/23/19 20:00 Intake & Output 03/23/19 03/23/19 03/24/19 06:59 18:59 06:59 Intake Total 480 Output Total 200 700 650 Balance -200 -220 -650 Weight 121.5 kg 121.5 kg Intake: Oral 480 Output: Urine 200 700 650 Other: Voiding Method Indwelling Catheter Indwelling Catheter Indwelling Catheter # Voids 2 # Bowel Movements 1 ABP, PAP, CO, CI - Last Documented Arterial Blood Pressure 105/93 - Exam Gen: This is a 73-year-old male. He has tolerated extubation well. Not having much shortness of breath. On the exam he has no tenderness over the pacemaker and does not recall it even being there. HEENT: Head is atraumatic, normocephalic. Pupils equal, round. Sclerae is anicteric. Conjunctiva pink. Oral mucous membranes are moist. Appears patient is edentulous. ET and gastric tube are in place orally. NECK: Supple. No JVD. No lymphadenopathy. No thyromegaly. LUNGS: Symmetrical air entry with few expiratory wheezes basilar crackles or bronchial sounds HEART: Regular rate and rhythm. No murmur. There is a dressing over the AICD, left upper chest wall, no drainage. No significant edema around the area. ABDOMEN: Soft. Bowel sounds are present. No masses. No tenderness. No redness under her abdominal fold. Diaz catheter draining clear dmitry urine. EXTREMITIES: Trace bilateral pedal edema. No wounds, no cellulitis noted. Dorsalis pedis 1+ bilaterally. NEUROLOGICAL: Mental status improved today, was just having his dinner and was able to recognize me by name. He over somewhat of a poor historian but was able to move upper and lower extremities. - Labs CBC & Chem 7: 03/23/19 05:27 03/23/19 05:27 Labs: Abnormal Lab Results - Last 24 Hours (Table) 03/23/19 03/23/19 03/23/19 Range/Units 05:27 05:27 06:17 WBC 11.1 H (3.8-10.6) k/uL RBC 4.02 L (4.30-5.90) m/uL Hgb 11.4 L (13.0-17.5) gm/dL MCHC 28.5 L (31.0-37.0) g/dL RDW 19.2 H (11.5-15.5) % Neutrophils # 8.8 H (1.3-7.7) k/uL BUN 67 H (9-20) mg/dL Creatinine 1.99 H (0.66-1.25) mg/dL Glucose 117 H (74-99) mg/dL POC Glucose (mg/dL) 129 H (75-99) mg/dL 03/23/19 03/23/19 03/23/19 Range/Units 12:07 16:48 19:59 WBC (3.8-10.6) k/uL RBC (4.30-5.90) m/uL Hgb (13.0-17.5) gm/dL MCHC (31.0-37.0) g/dL RDW (11.5-15.5) % Neutrophils # (1.3-7.7) k/uL BUN (9-20) mg/dL Creatinine (0.66-1.25) mg/dL Glucose (74-99) mg/dL POC Glucose (mg/dL) 240 H 114 H 125 H (75-99) mg/dL Assessment and Plan (1) Acute on chronic systolic CHF (congestive heart failure) Current Visit: Yes Status: Acute Code(s): I50.23 - ACUTE ON CHRONIC SYSTOLIC (CONGESTIVE) HEART FAILURE SNOMED Code(s): 360695006 (2) Cardiomyopathy Current Visit: Yes Status: Acute Code(s): I42.9 - CARDIOMYOPATHY, UNSPECIFIED SNOMED Code(s): 61553559 (3) Prosthetic valve endocarditis Current Visit: Yes Status: Acute Code(s): T82.6XXA - INFECT/INFLM REACTION DUE TO CARDIAC VALVE PROSTHESIS, INIT; I38 - ENDOCARDITIS, VALVE UNSPECIFIED SNOMED Code(s): 890797744
[2019-03-24] MEDS: AMPICILLIN-SULBACTAM 3 GM in SODIUM CHLORIDE 0.9% 100 ML IVPB SCH ×4 (04:13→22:57)
[2019-03-24 06:09] LABS: Anisocytosis Moderate; Basophils % (A) 0 %; Eosinophils # (A) 0.3 k/uL (0-0.7); Eosinophils % (A) 3 %; HCT 38.2 % (39.0-53.0); HGB 11.2 gm/dL (13.0-17.5); Hypochromasia Marked; Lymphocytes % (A) 9 %; MCH 28.8 pg (25.0-35.0); MCHC 29.4 g/dL (31.0-37.0); MCV 97.9 fL (80.0-100.0); Macrocytosis Moderate; Mean Platelet Volume 9.4; Monocytes # (A) 0.7 k/uL (0-1.0); Monocytes % (A) 6 %; Neutrophils # (A) 8.5 k/uL (1.3-7.7); Neutrophils % (A) 80 %; Platelet Count 148 k/uL (150-450); Poikilocytosis Slight; RDW 20.1 % (11.5-15.5); WBC 10.6 k/uL (3.8-10.6)
[2019-03-24 06:17] LABS: Calcium 8.1 mg/dL (8.4-10.2); Potassium 3.3 mmol/L (3.5-5.1)
[2019-03-24 06:18] LABS: Glucose,Whole Blood 97 mg/dL (75-99)
[2019-03-24] MEDS: INSULIN ASPART (NovoLOG) 100 UNIT/ML VIAL SQ SCH ×4 (06:29→21:08)
[2019-03-24] MEDS: IPRATROPIUM-ALBUTEROL 3 ML NEB INHALATION SCH ×4 (07:33→19:35)
[2019-03-24] MEDS: PANTOPRAZOLE 40 MG/10 ML VIAL IVP SCH (09:25)
[2019-03-24] MEDS: METOPROLOL TARTRATE 50 MG TAB PO SCH ×3 (09:26→20:07)
[2019-03-24] MEDS: FUROSEMIDE 40 MG TAB PO SCH (09:26)
[2019-03-24] MEDS: HEPARIN SODIUM,PORCINE 5,000 UNIT/ML 1 ML VIAL SQ SCH ×2 (09:26→20:07)
[2019-03-24] MEDS: ASPIRIN 81 MG PO SCH (09:26)
[2019-03-24] MEDS: AMIODARONE 200 MG TAB PO SCH ×2 (09:26→20:07)
[2019-03-24] MEDS: ATORVASTATIN 40 MG TAB PO SCH (09:26)
[2019-03-24] MEDS: NYSTATIN 100,000 UNIT/GM OINT 30 GM TUBE TOPICAL SCH ×2 (09:27→20:07)
[2019-03-24] MEDS ORDERED: POTASSIUM CHLORIDE ER 20 MEQ TAB.ER PO STA (10:02)
--- NOTE | 2019-03-24 10:54 | P.PN ---
Subjective Progress Note Date: 03/24/19 Patient is seen today in 03/24/2019. He is more awake and alert today. He is aware that his current hospital. He is aware he has one brother. He denies any worsening shortness of breath, cough or congestion. I saw the patient yesterday I'm seeing him today in follow-up. Is awake and alert and communicating. He is still weak and is having profound weakness in all 4 extremities. He is able to raise his arms against gravity. Is able to swallow. Is a PICC line. He is on IV Unasyn. Afebrile. Repeat cultures have been all negative. He is being treated for endocarditis. He is post respiratory failure secondary to septic shock related to infective endocarditis. Objective - Vital Signs Vital signs: Vital Signs Temp 95 F L 03/24/19 08:00 Pulse 78 03/24/19 08:00 Resp 16 03/24/19 08:00 BP 132/79 03/24/19 08:00 Pulse Ox 99 03/24/19 07:33 Intake & Output 03/23/19 03/24/19 03/24/19 18:59 06:59 18:59 Intake Total 480 0 Output Total 700 1100 Balance -220 -1100 0 Weight 121.5 kg 126.779 kg Intake: Oral 480 0 Output: Urine 700 1100 Other: Voiding Method Indwelling Catheter Indwelling Catheter # Voids 2 0 # Bowel Movements 1 1 ABP, PAP, CO, CI - Last Documented Arterial Blood Pressure 105/93 - Exam GENERAL EXAM: Alert, confused is improving according to the family se male patient, on 2 L/m per nasal cannula, comfortable in no apparent distress. HEAD: Normocephalic/atraumatic. EYES: Normal reaction of pupils, equal size. Conjunctiva pink, sclera white. NOSE: Clear with pink turbinates. THROAT: No erythema or exudates. NECK: No masses, no JVD, no thyroid enlargement, no adenopathy. CHEST: No chest wall deformity. Symmetrical expansion. There is a pacemaker pocket over the left anterior chest area. LUNGS: Equal air entry with a few scattered rhonchi, no rales CVS: Regular rate and rhythm, normal S1 and S2, no gallops, no murmurs, no rubs ABDOMEN: Soft, obese, nontender. No hepatosplenomegaly, normal bowel sounds, no guarding or rigidity. EXTREMITIES: No clubbing, no edema, no cyanosis, 2+ pulses and upper and lower extremities. MUSCULOSKELETAL: Muscle strength and tone normal. SPINE: No scoliosis or deformity SKIN: No rashes CENTRAL NERVOUS SYSTEM: Slow to respond. Some altered mental status., tone is normal in all 4 extremities. The patient remains weak and able to raise his arms against gravity at overall motor power is around 3 out of 5 in all 4 extremities. PSYCHIATRIC: Alert and oriented -3. Appropriate affect. Intact judgment and insight. - Labs CBC & Chem 7: 03/24/19 05:22 03/24/19 05:22 Labs: Abnormal Lab Results - Last 24 Hours (Table) 03/23/19 03/23/19 03/23/19 Range/Units 12:07 16:48 19:59 RBC (4.30-5.90) m/uL Hgb (13.0-17.5) gm/dL Hct (39.0-53.0) % MCHC (31.0-37.0) g/dL RDW (11.5-15.5) % Plt Count (150-450) k/uL Neutrophils # (1.3-7.7) k/uL Potassium (3.5-5.1) mmol/L BUN (9-20) mg/dL Creatinine (0.66-1.25) mg/dL Glucose (74-99) mg/dL POC Glucose (mg/dL) 240 H 114 H 125 H (75-99) mg/dL Calcium (8.4-10.2) mg/dL 03/24/19 03/24/19 Range/Units 05:22 05:22 RBC 3.90 L (4.30-5.90) m/uL Hgb 11.2 L (13.0-17.5) gm/dL Hct 38.2 L (39.0-53.0) % MCHC 29.4 L (31.0-37.0) g/dL RDW 20.1 H (11.5-15.5) % Plt Count 148 L (150-450) k/uL Neutrophils # 8.5 H (1.3-7.7) k/uL Potassium 3.3 L (3.5-5.1) mmol/L BUN 57 H (9-20) mg/dL Creatinine 2.08 H (0.66-1.25) mg/dL Glucose 103 H (74-99) mg/dL POC Glucose (mg/dL) (75-99) mg/dL Calcium 8.1 L (8.4-10.2) mg/dL Assessment and Plan Plan: 1 acute hypoxic respiratory failure secondary to cardiogenic shock and 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 The patient was quite septic and hemodynamically unstable. Overall pulmonary status is stable and the patient is not having any respiratory distress. He is currently on 2 L of oxygen by nasal cannula.. 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 the cultures were positive for Enterococcus faecalis and the patient is on IV Unasyn and the repeat blood cultures of been negative from 03/09/2019 and 03/10/2019. He is currently afebrile hemodynamically stable. 3 severe LV dysfunction and cardiomyopathy, ischemic in nature, ejection fraction of 20-25% post-insertion of AICD. 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 6 septic shock secondary to enterococcal infection 7 acute kidney injury secondary to sepsis, ATN, and possibly contrast nephropathy, improving and stable for now. 8 COPD 9 hypernatremia , recovered 10 acute metabolic encephalopathy secondary to electrolytes imbalance, hypernatremia, and sepsis as well as bacteremia. the metabolic encephalopathy is improving. 11 generalized anxiety disorder 12 obesity with a BMI of 42 13 hypertension 14 hyperlipidemia 15 motor weakness and debility secondary to above Plan The patient was evaluated. The patient can be taken off oxygen as her pulse ox on room air is around 94-95%. He has a PICC line in his right upper extremity. He is getting stronger. His communicating. No encephalopathy. He will need 6 weeks of antibiotics and intensive rehabilitation. Pacemaker pocket over the left anterior chest area is dry clean and intact. Potassium level was low at 3.3 and was replaced. Creatinine is also stable at 2.0
[2019-03-24 13:13] LABS: Glucose,Whole Blood 105 mg/dL (75-99)
--- NOTE | 2019-03-24 15:32 | PN ---
PROGRESS NOTE Patient is seen for followup for acute kidney injury and volume acute kidney injury. He has renal function is fairly stable. Serum creatinine is slightly improved. Patient was maintained on D5W for hypernatremia. He is currently off D5W was given a dose of Lasix and he has been restarted on p.o. Lasix now. Patient has a Diaz catheter with adequate urine output. PHYSICAL EXAMINATION: This morning, blood pressure was 104/63, heart rate 75 per minute, he is afebrile. Examination of the heart S1, S2. Examination of the lungs, decreased breath sounds at bases. Abdomen is soft, distended, obese. Examination of the lower extremities edema 1+ bilaterally. LABS: Show sodium 137, potassium 3.3, chloride 98, BUN 57, creatinine 2.08, hemoglobin 11.2 g/dL. ASSESSMENT: 1. Acute kidney injury ATN, nonoliguric, stable. 2. Sepsis from endocarditis with enterococcus bacteremia, repeat blood cultures remaining negative. 3. Hypernatremia, now improved. 4. Atrial fibrillation with controlled ventricular response. 5. Volume overload, maintained on oral Lasix now. 6. Hypokalemia secondary to diuresis, status post replacement. PLAN: Continue with oral Lasix, can increase dose depending on volume status tomorrow. Continue with antibiotics as well. MMODL / IJN: [id number] /
--- NOTE | 2019-03-24 16:10 | P.PN ---
Subjective Progress Note Date: 03/24/19 This is a 71-year-old male patient with known history of ischemic cardiomyopathy along with known history of coronary artery disease and previous aortic valve replacement, AVR, and previous coronary artery bypass surgery, who presented to the hospital because of chest pain and non-STEMI. The patient has had previous catheterizations with stenting done in the distal left main as well as the proximal circumflex. He has a chronically totally occluded RCA. As mentioned, the patient was admitted with chest pain or shortness of breath and acute non- STEMI. The patient underwent another cardiac catheterization and the patient was found to have taken stent to the distal left mainstem to proximal circum flex, patent BELTRAN to LAD, chronic totally occluded RCA. Recommendations were mainly to maximize medical management. The patient was being treated for congestion heart failure. He was receiving Lasix drip and he was having ongoing orthopnea. He was taken yesterday to the [facility] and the patient was given biventricular pacing/AICD. Noted postop, the patient was extubated. He became short of breath and went into significant amount of respiratory distress and within 10 minutes she had to be reintubated. He was brought into the intensive care unit intubated on a mechanical ventilator. Patient was also treated for congestive heart failure on IV Lasix drip, and required pressors for a period of time. He is now being followed on the cardiac unit. Awake and alert, apparently more than previously. Still continues to be extremely weak. Afebrile. Repeat cultures have been negative. He is being treated for endocarditis. He is post respiratory failure secondary to septic shock related to infected endocarditis. White blood cell count 10.6, hemoglobin 11.2, platelet count 148. Sodium 137, potassium 3.3, BUN 57 and creatinine 2.08. Objective - Vital Signs Vital signs: Vital Signs Temp 95 F L 03/24/19 08:00 Pulse 65 03/24/19 12:00 Resp 16 03/24/19 12:00 BP 104/63 03/24/19 12:00 Pulse Ox 90 L 03/24/19 12:00 Intake & Output 03/23/19 03/24/19 03/24/19 18:59 06:59 18:59 Intake Total 480 0 Output Total 700 1100 Balance -220 -1100 0 Weight 121.5 kg 126.779 kg Intake: Oral 480 0 Output: Urine 700 1100 Other: Voiding Method Indwelling Catheter Indwelling Catheter Indwelling Catheter # Voids 2 0 # Bowel Movements 1 1 ABP, PAP, CO, CI - Last Documented Arterial Blood Pressure 105/93 - Exam GENERAL EXAM: Alert, confused is improving according to the family se male patient, on 2 L/m per nasal cannula, comfortable in no apparent distress. HEAD: Normocephalic/atraumatic. EYES: Normal reaction of pupils, equal size. Conjunctiva pink, sclera white. NOSE: Clear with pink turbinates. THROAT: No erythema or exudates. NECK: No masses, no JVD, no thyroid enlargement, no adenopathy. CHEST: No chest wall deformity. Symmetrical expansion. There is a pacemaker pocket over the left anterior chest area. LUNGS: Equal air entry with a few scattered rhonchi, no rales CVS: Regular rate and rhythm, normal S1 and S2, no gallops, no murmurs, no rubs ABDOMEN: Soft, obese, nontender. No hepatosplenomegaly, normal bowel sounds, no guarding or rigidity. EXTREMITIES: No clubbing, no edema, no cyanosis, 2+ pulses and upper and lower extremities. MUSCULOSKELETAL: Muscle strength and tone normal. SPINE: No scoliosis or deformity SKIN: No rashes CENTRAL NERVOUS SYSTEM: Slow to respond. Some altered mental status., tone is n ormal in all 4 extremities. The patient remains weak and able to raise his arms against gravity at overall motor power is around 3 out of 5 in all 4 extremities. PSYCHIATRIC: Alert and oriented -3. Appropriate affect. Intact judgment and insight. - Labs CBC & Chem 7: 03/24/19 05:22 03/24/19 05:22 Labs: Abnormal Lab Results - Last 24 Hours (Table) 03/23/19 03/23/19 03/24/19 Range/Units 16:48 19:59 05:22 RBC 3.90 L (4.30-5.90) m/uL Hgb 11.2 L (13.0-17.5) gm/dL Hct 38.2 L (39.0-53.0) % MCHC 29.4 L (31.0-37.0) g/dL RDW 20.1 H (11.5-15.5) % Plt Count 148 L (150-450) k/uL Neutrophils # 8.5 H (1.3-7.7) k/uL Potassium (3.5-5.1) mmol/L BUN (9-20) mg/dL Creatinine (0.66-1.25) mg/dL Glucose (74-99) mg/dL POC Glucose (mg/dL) 114 H 125 H (75-99) mg/dL Calcium (8.4-10.2) mg/dL 03/24/19 03/24/19 Range/Units 05:22 13:06 RBC (4.30-5.90) m/uL Hgb (13.0-17.5) gm/dL Hct (39.0-53.0) % MCHC (31.0-37.0) g/dL RDW (11.5-15.5) % Plt Count (150-450) k/uL Neutrophils # (1.3-7.7) k/uL Potassium 3.3 L (3.5-5.1) mmol/L BUN 57 H (9-20) mg/dL Creatinine 2.08 H (0.66-1.25) mg/dL Glucose 103 H (74-99) mg/dL POC Glucose (mg/dL) 105 H (75-99) mg/dL Calcium 8.1 L (8.4-10.2) mg/dL Assessment and Plan Plan: Assessment and plan 1 acute hypoxic respiratory failure secondary to cardiogenic shock and 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 The patient was quite septic and hemodynamically unstable. Overall pulmonary status is stable and the patient is not having any respiratory distress. He is currently on 2 L of oxygen by nasal cannula.. 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 the cultures were positive for Enterococcus faecalis and the patient is on IV Unasyn and the repeat blood cultures of been negative from 03/09/2019 and 03/10/2019. He is currently afebrile hemodynamically stable. 3 severe LV dysfunction and cardiomyopathy, ischemic in nature, ejection fraction of 20-25% post-insertion of AICD. 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 6 septic shock secondary to enterococcal infection 7 acute kidney injury secondary to sepsis, ATN, and possibly contrast nephropathy, improving and stable for now. 8 COPD 9 hypernatremia , recovered 10 acute metabolic encephalopathy secondary to electrolytes imbalance, hypernatremia, and sepsis as well as bacteremia. the metabolic encephalopathy is improving. 11 generalized anxiety disorder 12 obesity with a BMI of 42 13 hypertension 14 hyperlipidemia Plan From cardiology's perspective, we will continue with current medications. Amiodarone 200 mg one tablet by mouth twice a day and metoprolol 100 mg by mouth 3 times a day. DNP note has been reviewed, I agree with a documented findings and plan of care. Patient was seen and examined.
[2019-03-24 17:37] LABS: Glucose,Whole Blood 108 mg/dL (75-99)
[2019-03-24] MEDS: POTASSIUM CHLORIDE ER 20 MEQ TAB.ER PO SCH (18:23)
[2019-03-24] MEDS: CLOPIDOGREL 75 MG TAB PO SCH (20:07)
[2019-03-24 20:52] LABS: Glucose,Whole Blood 138 mg/dL (75-99)
--- NOTE | 2019-03-24 21:19 | P.PN ---
Subjective Progress Note Date: 03/24/19 This is a 73-year-old male with known history of ischemic cardiomyopathy along with known history of coronary artery disease and previous aortic valve replacement, AVR, and previous coronary artery bypass surgery. He presented on March 01 because of chest pain and found to have non-STEMI. He underwent cardiac catheterization with Dr. Juarez on 03/03 and the patient was found to have patent stent to the distal left mainstem to proximal circumflex, patent BELTRAN to LAD, chronic totally occluded RCA. Recommendations were mainly to maximize medical management. Patient was apparently having runs of V. tach and a consult was added for Dr. Ho. Patient subsequently underwent a biventricular ICD implantation on March 05. Patient was intubated prior to the procedure as apparently he is unable to lay flat for this. He received 700 mL of fluid during procedure. He was extubated last evening for only 3 minutes and was re- intubated. He was given Lasix 40 mg IV push followed by Lasix drip at 10 mg per hour. The Lasix to was discontinued this morning. Patient remains intubated, on sedation and on levo fed. His chest x-ray this morning reveals a right upper lobe pneumonia and probable heart failure. Patient has been running fevers up to 101.6 on evening of 925. White count 20.6, renal function is worsening with a BUN 45 and creatinine 2.6. Urinalysis was clear with nitrate and l eukoesterase negative. Urine output has been on the lower side running about 50 mL per hour or less. Blood culture from 03/04 is group D enterococcus and thus this consult was requested. 03/09/2019 the patient had evidence of isolated enterococcal bacteremia. The case was discussed with cardiology and a LISSET has been performed today which is verified evidence of a vegetation on the bioprosthetic aortic valve. There is no evidence of any ring abscess or of extensive valvular disease. The patient has shown some improvement in that his fever is improved and his leukocytosis is improving. 03/10/2019 patient remains intubated sedated and mechanically ventilated. His oxygen requirements have decreased in with increased dose of beta russell treatment started as some further improvement of his rate and dysrhythmia. He has been seen by cardiovascular surgeon. 03/11/2019 patient had weaning trial not successful to be retried tomorrow. Off of vasopressor therapy and stable. 03/12/2019 patient has had improvement of his status. He is less sedated. He is on CPAP and doing well likely be extubated when he is a bit more awake. 03/13/2019 the patient is extubated sitting upright feeling considerably better able to eat some nutrition. Not having much chest pain shortness of breath is improved. 03/15/2019 Patient has had some further improvement. He is less short of breath. He is without significant discomforts. Able to eat without difficulties. 03/16/2019 reveals the patient has some further improvement. Is more awake and interactive 03/18/2019 the patient has had some further improvement of his status in that he is with less shortness of breath, has required no further vasopressor therapy is responded somewhat well to current interventions. Negative blood cultures have been verified. 03/23/2019 the patient's status has waxed and waned his discharge does continue to be evaluated when he is more stable. Does seem to be having a better day today than prior. He is not having fevers or chills and actually recognizes me by name today. 03/24/2019 patient i s feeling somewhat better. He is denying intermittent troubles. He is awaiting his transfer to rehabilitation to receive his antibiotic therapy as well as attempts to improve his physical condition. 04/21/2019 his ascending of his antibiotics of Unasyn 3 g IV piggyback every 6 hours with Rocephin 2 g daily. Weekly blood work is requested with a CBC with differential, BMP, and an ESR while on antibiotic therapy. Objective - Vital Signs Vital signs: Vital Signs Temp 97.8 F 03/24/19 20:00 Pulse 82 03/24/19 20:00 Resp 17 03/24/19 20:00 BP 131/61 03/24/19 20:00 Pulse Ox 98 03/24/19 20:00 Intake & Output 03/24/19 03/24/19 03/25/19 06:59 18:59 06:59 Intake Total 340 Output Total 1100 950 300 Balance -1100 -610 -300 Weight 126.779 kg Intake: Intake, IV Titration 100 Amount Ampicillin-Sulbactam 3 gm 100 In Sodium Chloride 0.9% 100 ml @ 200 mls/hr IVPB Q8HR [facility] Rx#:[id number] Oral 240 Output: Urine 1100 950 300 Other: Voiding Method Indwelling Catheter Indwelling Catheter Indwelling Catheter # Voids 0 # Bowel Movements 1 ABP, PAP, CO, CI - Last Documented Arterial Blood Pressure 105/93 - Labs CBC & Chem 7: 03/24/19 05:22 03/24/19 05:22 Labs: Abnormal Lab Results - Last 24 Hours (Table) 03/24/19 03/24/19 03/24/19 Range/Units 05:22 05:22 13:06 RBC 3.90 L (4.30-5.90) m/uL Hgb 11.2 L (13.0-17.5) gm/dL Hct 38.2 L (39.0-53.0) % MCHC 29.4 L (31.0-37.0) g/dL RDW 20.1 H (11.5-15.5) % Plt Count 148 L (150-450) k/uL Neutrophils # 8.5 H (1.3-7.7) k/uL Potassium 3.3 L (3.5-5.1) mmol/L BUN 57 H (9-20) mg/dL Creatinine 2.08 H (0.66-1.25) mg/dL Glucose 103 H (74-99) mg/dL POC Glucose (mg/dL) 105 H (75-99) mg/dL Calcium 8.1 L (8.4-10.2) mg/dL 03/24/19 03/24/19 Range/Units 17:14 20:51 RBC (4.30-5.90) m/uL Hgb (13.0-17.5) gm/dL Hct (39.0-53.0) % MCHC (31.0-37.0) g/dL RDW (11.5-15.5) % Plt Count (150-450) k/uL Neutrophils # (1.3-7.7) k/uL Potassium (3.5-5.1) mmol/L BUN (9-20) mg/dL Creatinine (0.66-1.25) mg/dL Glucose (74-99) mg/dL POC Glucose (mg/dL) 108 H 138 H (75-99) mg/dL Calcium (8.4-10.2) mg/dL Assessment and Plan (1) Acute on chronic systolic CHF (congestive heart failure) Current Visit: Yes Status: Acute Code(s): I50.23 - ACUTE ON CHRONIC SYSTOLIC (CONGESTIVE) HEART FAILURE SNOMED Code(s): 364955528 (2) Cardiomyopathy Current Visit: Yes Status: Acute Code(s): I42.9 - CARDIOMYOPATHY, UNSPECIFIED SNOMED Code(s): 29211809 (3) Prosthetic valve endocarditis Current Visit: Yes Status: Acute Code(s): T82.6XXA - INFECT/INFLM REACTION DUE TO CARDIAC VALVE PROSTHESIS, INIT; I38 - ENDOCARDITIS, VALVE UNSPECIFIED SNOMED Code(s): 408947927
[2019-03-25 07:18] LABS: Glucose,Whole Blood 106 mg/dL (75-99)
[2019-03-25] MEDS: IPRATROPIUM-ALBUTEROL 3 ML NEB INHALATION SCH ×4 (07:58→20:53)
[2019-03-25 08:04] LABS: Calcium 8.5 mg/dL (8.4-10.2)
[2019-03-25 08:14] LABS: Anisocytosis Slight; Basophils % (A) 0 %; Eosinophils # (A) 0.1 k/uL (0-0.7); Eosinophils % (A) 1 %; HCT 42.2 % (39.0-53.0); HGB 12.5 gm/dL (13.0-17.5); Hypochromasia Marked; Lymphocytes # (A) 0.9 k/uL (1.0-4.8); Lymphocytes % (A) 8 %; MCH 29.2 pg (25.0-35.0); MCHC 29.7 g/dL (31.0-37.0); MCV 98.2 fL (80.0-100.0); Macrocytosis Moderate; Mean Platelet Volume 8.2; Monocytes # (A) 0.8 k/uL (0-1.0); Monocytes % (A) 7 %; Neutrophils # (A) 9.3 k/uL (1.3-7.7); Neutrophils % (A) 83 %; Platelet Count 173 k/uL (150-450); Poikilocytosis Slight; RDW 19.5 % (11.5-15.5); WBC 11.2 k/uL (3.8-10.6)
[2019-03-25] MEDS: INSULIN ASPART (NovoLOG) 100 UNIT/ML VIAL SQ SCH ×4 (08:24→21:32)
[2019-03-25] MEDS: FUROSEMIDE 40 MG TAB PO SCH (08:30)
[2019-03-25] MEDS: ATORVASTATIN 40 MG TAB PO SCH (08:30)
[2019-03-25] MEDS: POTASSIUM CHLORIDE ER 20 MEQ TAB.ER PO SCH (08:30)
[2019-03-25] MEDS: AMIODARONE 200 MG TAB PO SCH ×2 (08:30→23:15)
[2019-03-25] MEDS: METOPROLOL TARTRATE 50 MG TAB PO SCH ×3 (08:30→23:15)
[2019-03-25] MEDS: PANTOPRAZOLE 40 MG/10 ML VIAL IVP SCH (08:30)
[2019-03-25] MEDS: ASPIRIN 81 MG PO SCH (08:30)
[2019-03-25] MEDS: HEPARIN SODIUM,PORCINE 5,000 UNIT/ML 1 ML VIAL SQ SCH ×2 (08:31→23:15)
[2019-03-25] MEDS: NYSTATIN 100,000 UNIT/GM OINT 30 GM TUBE TOPICAL SCH ×2 (08:42→23:16)
[2019-03-25] MEDS: AMPICILLIN-SULBACTAM 3 GM in SODIUM CHLORIDE 0.9% 100 ML IVPB SCH ×3 (08:45→23:16)
--- NOTE | 2019-03-25 11:11 | P.PN ---
Subjective Patient is seen in follow-up for acute kidney injury. Renal function is improved. Creatinine 1.71 today. Currently maintained on Lasix 40 mg orally once daily. Oral intake is fair. No vomiting or diarrhea. Vital signs are stable. General: The patient appeared well nourished and normally developed. HEENT: Head exam is unremarkable. Neck is without jugular venous distension. LUNGS: Breath sounds decreased. HEART: Rate and Rhythm are regular. First and second heart sounds normal. No murmurs, rubs or gallops. ABDOMEN: Abdominal exam reveals normal bowel sounds. Non-tender and non- distended. EXTREMITITES: Trace edema. Objective - Vital Signs Vital signs: Vital Signs Temp 97.8 F 03/24/19 20:00 Pulse 78 03/25/19 08:08 Resp 17 03/24/19 20:00 BP 131/61 03/24/19 20:00 Pulse Ox 98 03/24/19 20:00 Intake & Output 03/24/19 03/25/19 03/25/19 18:59 06:59 18:59 Intake Total 340 0 Output Total 950 800 Balance -610 -800 0 Weight 125.5 kg Intake: Intake, IV Titration 100 Amount Ampicillin-Sulbactam 3 gm 100 In Sodium Chloride 0.9% 100 ml @ 200 mls/hr IVPB Q8HR [facility] Rx#:[id number] Oral 240 0 Output: Urine 950 800 Other: Voiding Method Indwelling Catheter Indwelling Catheter # Voids 0 0 ABP, PAP, CO, CI - Last Documented Arterial Blood Pressure 105/93 - Labs CBC & Chem 7: 03/25/19 05:35 03/25/19 05:35 Labs: Abnormal Lab Results - Last 24 Hours (Table) 03/24/19 03/24/19 03/24/19 Range/Units 13:06 17:14 20:51 WBC (3.8-10.6) k/uL Hgb (13.0-17.5) gm/dL MCHC (31.0-37.0) g/dL RDW (11.5-15.5) % Neutrophils # (1.3-7.7) k/uL Lymphocytes # (1.0-4.8) k/uL BUN (9-20) mg/dL Creatinine (0.66-1.25) mg/dL Glucose (74-99) mg/dL POC Glucose (mg/dL) 105 H 108 H 138 H (75-99) mg/dL 03/25/19 03/25/19 03/25/19 Range/Units 05:35 05:35 06:37 WBC 11.2 H (3.8-10.6) k/uL Hgb 12.5 L (13.0-17.5) gm/dL MCHC 29.7 L (31.0-37.0) g/dL RDW 19.5 H (11.5-15.5) % Neutrophils # 9.3 H (1.3-7.7) k/uL Lymphocytes # 0.9 L (1.0-4.8) k/uL BUN 55 H (9-20) mg/dL Creatinine 1.71 H (0.66-1.25) mg/dL Glucose 113 H (74-99) mg/dL POC Glucose (mg/dL) 106 H (75-99) mg/dL Microbiology - Last 24 Hours (Table) 03/24/19 13:25 Urine Culture - Preliminary Urine,Catheterized Assessment and Plan Plan: Assessment: 1. Acute kidney injury secondary to ATN secondary to sepsis and diuresis. Renal function improved. Creatinine 1.71 today. 2. Hypernatremia secondary to diuresis and lack of oral water intake. Better. Status post D5W. 3. Sepsis secondary to endocarditis with enterococcus facialis bacteremia maintained on antibiotics. 4. Atrial fibrillation maintained on amiodarone and Lopressor. 5. Volume overload. Improving with diuretics. Plan: Maintain Lasix 40 mg orally once daily. Avoid nephrotoxins. Continue to monitor renal function and urine output.
[2019-03-25 12:05] LABS: Glucose,Whole Blood 106 mg/dL (75-99)
--- NOTE | 2019-03-25 13:15 | P.PN ---
Subjective Progress Note Date: 03/25/19 This is a 71-year-old male patient with known history of ischemic cardiomyopathy along with known history of coronary artery disease and previous aortic valve replacement, AVR, and previous coronary artery bypass surgery, who presented to the hospital because of chest pain and non-STEMI. The patient has had previous catheterizations with stenting done in the distal left main as well as the proximal circumflex. He has a chronically totally occluded RCA. As mentioned, the patient was admitted with chest pain or shortness of breath and acute non- STEMI. The patient underwent another cardiac catheterization and the patient was found to have taken stent to the distal left mainstem to proximal circum flex, patent BELTRAN to LAD, chronic totally occluded RCA. Recommendations were mainly to maximize medical management. The patient was being treated for congestion heart failure. He was receiving Lasix drip and he was having ongoing orthopnea. He was taken yesterday to the Speech Pathology Supervisor and the patient was given biventricular pacing/AICD. Noted postop, the patient was extubated. He became short of breath and went into significant amount of respiratory distress and within 10 minutes she had to be reintubated. He was brought into the intensive care unit intubated on a mechanical ventilator. Patient was also treated for congestive heart failure on IV Lasix drip, and required pressors for a period of time. He is now being followed on the cardiac unit. Awake and alert, apparently more than previously. Still continues to be extremely weak. Afebrile. Repeat cultures have been negative. He is being treated for endocarditis. He is post respiratory failure secondary to septic shock related to infected endocarditis. White blood cell count 10.6, hemoglobin 11.2, platelet count 148. Sodium 137, potassium 3.3, BUN 57 and creatinine 2.08. 03/25/2019 Patient seen and examined this morning, hemodynamically stable. Blood pressure 130/60 with a heart rate in the 70s. Objective - Vital Signs Vital signs: Vital Signs Temp 96.9 F L 03/25/19 12:00 Pulse 82 03/25/19 12:00 Resp 18 03/25/19 12:00 BP 121/66 03/25/19 12:00 Pulse Ox 99 03/25/19 12:00 Intake & Output 03/24/19 03/25/19 03/25/19 18:59 06:59 18:59 Intake Total 340 380 Output Total 950 800 Balance -610 -800 380 Weight 125.5 kg Intake: Intake, IV Titration 100 180 Amount Ampicillin-Sulbactam 3 gm 100 100 In Sodium Chloride 0.9% 100 ml @ 200 mls/hr IVPB Q8HR [facility] Rx#:[id number] IV Fluid Continuation 200 80 ml @ 0 mls/hr IV .[facility] Rx#:[id number] Oral 240 200 Tube Feeding 0 Output: Urine 950 800 Other: Voiding Method Indwelling Catheter Indwelling Catheter Indwelling Catheter # Voids 0 0 ABP, PAP, CO, CI - Last Documented Arterial Blood Pressure 105/93 - Exam GENERAL EXAM: Alert, confused is improving according to the family se male patient, on 2 L/m per nasal cannula, comfortable in no apparent distress. HEAD: Normocephalic/atraumatic. EYES: Normal reaction of pupils, equal size. Conjunctiva pink, sclera white. NOSE: Clear with pink turbinates. THROAT: No erythema or exudates. NECK: No masses, no JVD, no thyroid enlargement, no adenopathy. CHEST: No chest wall deformity. Symmetrical expansion. There is a pacemaker pocket over the left anterior chest area. LUNGS: Equal air entry with a few scattered rhonchi, no rales CVS: Regular rate and rhythm, normal S1 and S2, no gallops, no murmurs, no rubs ABDOMEN: Soft, obese, nontender. No hepatosplenomegaly, normal bowel sounds, no guarding or rigidity. EXTREMITIES: No clubbing, no edema, no cyanosis, 2+ pulses and upper and lower extremities. MUSCULOSKELETAL: Muscle strength and tone normal. SPINE: No scoliosis or deformity SKIN: No rashes CENTRAL NERVOUS SYSTEM: Slow to respond. Some altered mental status., tone is normal in all 4 extremities. The patient remains weak and able to raise his arms against gravity at overall motor power is around 3 out of 5 in all 4 extremities. PSYCHIATRIC: Alert and oriented -3. Appropriate affect. Intact judgment and insight. - Labs CBC & Chem 7: 03/25/19 05:35 03/25/19 05:35 Labs: Abnormal Lab Results - Last 24 Hours (Table) 03/24/19 03/24/19 03/24/19 Range/Units 13:06 17:14 20:51 WBC (3.8-10.6) k/uL Hgb (13.0-17.5) gm/dL MCHC (31.0-37.0) g/dL RDW (11.5-15.5) % Neutrophils # (1.3-7.7) k/uL Lymphocytes # (1.0-4.8) k/uL BUN (9-20) mg/dL Creatinine (0.66-1.25) mg/dL Glucose (74-99) mg/dL POC Glucose (mg/dL) 105 H 108 H 138 H (75-99) mg/dL 03/25/19 03/25/19 03/25/19 Range/Units 05:35 05:35 06:37 WBC 11.2 H (3.8-10.6) k/uL Hgb 12.5 L (13.0-17.5) gm/dL MCHC 29.7 L (31.0-37.0) g/dL RDW 19.5 H (11.5-15.5) % Neutrophils # 9.3 H (1.3-7.7) k/uL Lymphocytes # 0.9 L (1.0-4.8) k/uL BUN 55 H (9-20) mg/dL Creatinine 1.71 H (0.66-1.25) mg/dL Glucose 113 H (74-99) mg/dL POC Glucose (mg/dL) 106 H (75-99) mg/dL 03/25/19 Range/Units 11:36 WBC (3.8-10.6) k/uL Hgb (13.0-17.5) gm/dL MCHC (31.0-37.0) g/dL RDW (11.5-15.5) % Neutrophils # (1.3-7.7) k/uL Lymphocytes # (1.0-4.8) k/uL BUN (9-20) mg/dL Creatinine (0.66-1.25) mg/dL Glucose (74-99) mg/dL POC Glucose (mg/dL) 106 H (75-99) mg/dL Microbiology - Last 24 Hours (Table) 03/24/19 13:25 Urine Culture - Preliminary Urine,Catheterized Assessment and Plan Plan: Assessment and plan 1 acute hypoxic respiratory failure secondary to cardiogenic shock and 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 The patient was quite septic and hemodynamically unstable. Overall pulmonary status is stable and the patient is not having any respiratory distress. He is currently on 2 L of oxygen by nasal cannula.. 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 the cultures were positive for Enterococcus faecalis and the patient is on IV Unasyn and the repeat blood cultures of been negative from 03/09/2019 a nd 03/10/2019. He is currently afebrile hemodynamically stable. 3 severe LV dysfunction and cardiomyopathy, ischemic in nature, ejection fraction of 20-25% post-insertion of AICD. 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 6 septic shock secondary to enterococcal infection 7 acute kidney injury secondary to sepsis, ATN, and possibly contrast nephropathy, improving and stable for now. 8 COPD 9 hypernatremia , recovered 10 acute metabolic encephalopathy secondary to electrolytes imbalance, hypernatremia, and sepsis as well as bacteremia. the metabolic encephalopathy is improving. 11 generalized anxiety disorder 12 obesity with a BMI of 42 13 hypertension 14 hyperlipidemia Plan From cardiology's perspective, we will continue with current medications. Amiodarone 200 mg one tablet by mouth twice a day and metoprolol 100 mg by mouth 3 times a day. We will follow this patient along with you now on an as-needed basis only, please don't hesitate to call if you have any questions. DNP note has been reviewed, I agree with a documented findings and plan of care. Patient was seen and examined.
--- NOTE | 2019-03-25 14:04 | P.PN ---
Subjective Progress Note Date: 03/24/19 Principal diagnosis: Acute non-ST elevated LA Acute on chronic CHF Patient is a 73-year-old male with a known history of coronary artery disease status post CABG, history of PCI and recent cardiac catheterization with stent placement in September , severe coronary disease, chronic CHF with systolic dysfunction ejection fraction 20-25%, COPD possible underlying restrictive lung disease, paroxysmal atrial fibrillation and morbid obesity with BMI 41.5 and other multiple medical problems came to ER with complaints of shortness of breath, worsening for the past 10 days. Patient also having chest pain on and off and felt like tightness of the chest. Patient also says that his heart rate was increasing 100 at home. Patient is supposed to get pacemaker due to tachybradycardia in February 24 2019 but was postponed to 2018. Patient has been sleeping mostly for the past 1 week. Chest x-ray showed borderline cardiomegaly. Unchanged from prior study. EKG showed sinus tachycardia with premature ventricular complexes and left Atrial Enlargement. Troponin 2.37 and 1.49, WBC 13.0 BNP 08227 03/02/2019 Patient is currently lying in the bed comfortably. Awake alert oriented 3. No complaints of chest pain. Shortness of breath improving. Cardiology is planning for cardiac catheterization tomorrow. 03/03/2019 Patient is currently lying in the bed comfortably. Shortness of breath with ambulation. Patient is otherwise status post cardiac catheterization today loreto wed patent stents and maximal medical therapy was recommended. Patient also has been having nonsustained V. tach and a low ejection fraction. Currently being evaluated for AICD placement. EP was consulted. No complaints of chest pain. Continued on IV Lasix. No nausea vomiting or abdominal pain. No diarrhea or dysuria. Renal function is fairly stable. 03/04/2019 Patient is currently lying in the bed. Shortness of breath with slight improvement. Status post cardiac catheterization and was found have patent stent. Patient does have nonsustained V. tach. Patient was seen by EP for possible biventricular pacemaker implantation with defibrillator. Patient was started on Lasix drip due to acute on chronic CHF with systolic dysfunction. No fever no chills. No cough or sputum production. No other acute overnight issues otherwise. 03/05/2019 Patient is currently lying in the bed comfortable. Denied any complaints of cough or sputum production. Patient was febrile last night. Did have leukocytosis at 15.8 Chest x-ray was done. Chest x-ray showed increasing left lung opacification lingular pneumonia is a primary consideration. Patient was started on antibiotics the form of Zosyn. Patient is currently on oral Lasix. Patient was scheduled for AICD placement. Denied any chest pain. No nausea vomiting or diarrhea. Creatinine level increased to 1.9 today Follow-up CBC and BMP tomorrow. 03/16/2019 Patient remains in the ICU. Is a status post extubation. Currently he is on oxygen nasal cannula 6 L/m with his oxygen saturation at 99%. Rest of vitals show a respiratory rate of 22-25, with tachycardia 108 07/11/2013, rest of vitals stable and patient is afebrile for the last few days. Labs showing resistant leukocytosis at 16.8 K, creatinine stable at 2.0. He has no chest pain, no headache. No change in bowel habits. He remains on Unasyn and ceftriaxone as per infectious disease recommendation, his Lasix was lowered to 40 mg IV daily, and he is off the amiodarone drip and currently is on amiodarone pills at 200 mg twice daily. Patient is able to eat and drink so D5W was stopped. Pain is controlled. 03/17/2019 Patient gives improving, he is awake and oriented, he knows why he is in the hospital. He feels generally weak and still short of breath. He is saturating 78-88% on room air, however patient is non-adherent to his oxygen therapy and he keeps taken off his nasal cannula. His saturation goes up to 97% on 4 L oxygen via high flow cannula. No chest pain. Slightly tachycardic. Blood pressure stable. Still have leukocytosis of 15.9 and creatinine stable at 2.1. Sugar control. Patient remains on Unasyn and ceftriaxone and he will need a PICC line and prolonged antibiotic course. ECF is recommended for patient upon discharge. Also is on Lasix 40 mg twice daily and amiodarone 200 mg twice daily basis metoprolol 75 mg 3 times daily. Pain controlled Discussed with the staff today 03/18/2019 Patient was transported to the select unit at the general medical floor. He is awake and alert, he still short of breath with decreased air entry in both sides, however he denies chest pain, his Kassy to tolerate his diet. His Vitas looks stable. Patient has persistent leukocytosis at 15.9 K, creatinine is 2.3. And sugars controlled. Patient remains on Unasyn and Rocephin per infectious disease team with cardiology and pulmonary team R following closely. 03/19/2019 Family concern that the patient was still not at his baseline mental status and they were asking for neurology evaluation. Neurologist recommended repeat CT of the head, EEG, with lab work including TSH ammonia and vitamin B12. Patient is still short of breath with abdominal distention. He is profoundly weak and yesterday did not participate with physical therapy. Cardiology and infectious disease R following the case closely and they cleared the patient for PICC line as he has negative blood culture on repeat testing. On for him for prolonged antibiotics for 6 weeks. Lap showing persistent leukocytosis of 16.1 K, creatinine 2.4 and sodium 147. Patient is followed closely by pulmonary and renal team. Patient has couple of loose bowel movements. We will order abdominal x-rays 03/20/2019 Patient in the general medical floor, is awake and oriented to place but not to time or person, he answers some questions appropriately and follow commands. He does not look in distress. He denies chest pain or dyspnea. His Vitas looks stable however he still feels a bit tachypneic, his saturating 100% on 2 L oxygen via nasal cannula. He still have mild leukocytosis of 16.1 K creatinine is 2.4, that is from yesterday repeat labs from today showing hypernatremia with sodium 151, patient was started on D5W.. Diaz catheter is in place. PICC line was placed yesterday while I J line was removed. EEG showing no seizure-like activity but rather he has metabolic encephalopathy. Workup of B12, ammonia and TSH/T4 are nonrevealing for his mental status change. Patient is followed closely by several consultants including cardiology, pulmonary, nephrology and urology. Infectious disease help her with managing his antibiotics. Patient will need to ECF for rehab and antibiotic therapy upon discharge 03/21/2019 patient is more awake but still confused, hemodynamically stable but is tachypneic with a breathing rate 20-26.sodium improved to 149, creatinine 2.2, glucose is 155. His been followed by several consultants including pulmonary, m ost likely patient has metabolic encephalopathy secondary to his his SBE and renal failure with electrolyte abnormality. We'll increase the rate of D5W to 70 mL/h as sodium is 149 03/22/2019 Patient is more oriented to day, however he still somewhat confused. His more drowsy and make up easily to verbal and tactile stimuli and he answers some questions appropriately. Vitals stable. Glucose controlled sodium is 144. Creatinine 2.0. Magnesium 2.8. Patient is being followed by several consu ltants. Sodium is 144 and so we lowered his D5W to 60 mL/h. He got 1 dose of Lasix. Prognosis remains guarded 03/23/2019 Patient is more awake and oriented today, he is easily answering questions more easily and he remembers he is at [facility] in [place]. However he could not remember what his medical problem and why he was in the hospital. Hemodynamically stable. Sodium skin down to 139 creatinine 1.99. Sugars controlled. Leukocytosis improving down to 11.1 K.we will dc his d5w and encourage oral hydration 03/24/2019 Patient is awake alert and slightly confused compared to yesterday as per his daughter at bedside. Otherwise patient is afebrile. Creatinine slightly inc reased to 2.08. Patient is awake alert oriented 2. Penicillin complaints of shortness of breath. No cough or congestion. Patient does have generalized weakness. Able to eat slowly. Patient is status post septic shock secondary to infected endocarditis. 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 Diaz catheter is being exchanged today. Anticipate discharge in next 24 hours to rehab for IV antibiotics and PTOT. Current medications reviewed. Objective - Vital Signs Vital signs: Vital Signs Temp 95 F L 03/24/19 08:00 Pulse 65 03/24/19 12:00 Resp 16 03/24/19 12:00 BP 104/63 03/24/19 12:00 Pulse Ox 90 L 03/24/19 12:00 Intake & Output 03/23/19 03/24/19 03/24/19 18:59 06:59 18:59 Intake Total 480 0 Output Total 700 1100 Balance -220 -1100 0 Weight 121.5 kg 126.779 kg Intake: Oral 480 0 Output: Urine 700 1100 Other: Voiding Method Indwelling Catheter Indwelling Catheter Indwelling Catheter # Voids 2 0 # Bowel Movements 1 1 ABP, PAP, CO, CI - Last Documented Arterial Blood Pressure 105/93 - Exam PHYSICAL EXAMINATION: Patient is lying in the bed comfortably, no acute distress, awake alert and oriented 2. Confused and lethargic. morbidly obese... HEENT: Normocephalic. Neck is supple. Pupils reactive. Nostrils clear. Oral cavity is moist. Ears reveal no drainage. Neck reveals no JVD, carotid bruits, or thyromegaly. CHEST EXAMINATION: Trachea is central. Symmetrical expansion. Bibasilar diminished air entry. Lung nolen clear to auscultation and percussion. CARDIAC: Normal S1, S2 with no gallops. No murmurs ABDOMEN: Soft. Obese, distended, Bowel sounds normal. No organomegaly. No abdominal bruits. Extremities: 2+ edema. No clubbing or cyanosis Neurologically awake, alert, oriented x3 with well-coordinated movements. No focal deficits noted Skin: No rash or skin lesions. Psychiatric: Coperative. Nonsuicidal Musculoskeletal: No joint swelling or deformity. Normal range of motion. - Labs CBC & Chem 7: 03/25/19 05:35 03/25/19 05:35 Labs: Abnormal Lab Results - Last 24 Hours (Table) 03/23/19 03/23/19 03/24/19 Range/Units 16:48 19:59 05:22 RBC 3.90 L (4.30-5.90) m/uL Hgb 11.2 L (13.0-17.5) gm/dL Hct 38.2 L (39.0-53.0) % MCHC 29.4 L (31.0-37.0) g/dL RDW 20.1 H (11.5-15.5) % Plt Count 148 L (150-450) k/uL Neutrophils # 8.5 H (1.3-7.7) k/uL Potassium (3.5-5.1) mmol/L BUN (9-20) mg/dL Creatinine (0.66-1.25) mg/dL Glucose (74-99) mg/dL POC Glucose (mg/dL) 114 H 125 H (75-99) mg/dL Calcium (8.4-10.2) mg/dL 03/24/19 03/24/19 Range/Units 05:22 13:06 RBC (4.30-5.90) m/uL Hgb (13.0-17.5) gm/dL Hct (39.0-53.0) % MCHC (31.0-37.0) g/dL RDW (11.5-15.5) % Plt Count (150-450) k/uL Neutrophils # (1.3-7.7) k/uL Potassium 3.3 L (3.5-5.1) mmol/L BUN 57 H (9-20) mg/dL Creatinine 2.08 H (0.66-1.25) mg/dL Glucose 103 H (74-99) mg/dL POC Glucose (mg/dL) 105 H (75-99) mg/dL Calcium 8.1 L (8.4-10.2) mg/dL Assessment and Plan Assessment: Cardiogenic and septic shock. 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 Status post cardiac catheterization showing patent stents. Shortness of breath due to acute on chronic CHF with systolic dysfunction. Ejection fraction 20-25%. Patient does have elevated BNP and increased leg swelling. Acute kidney injury likely due to diuresis. Possible ATN and cardiorenal. Acute Urinary retention. Currently on Diaz catheter. Trial void once patient is ambulatory. Ischemic cardiomyopathy. Status post AICD placement. Possible underlying COPD with extrapulmonary restriction of lung. Paroxysmal atrial fibrillation. Severe Coronary artery disease and history of stent placement recently on September 2018 History of coronary artery bypass graft Hypertension Hyperlipidemia Osteoarthritis Chronic anxiety/PTSD Morbid obesity with BMI 41.5 History of aortic valve replacement due to severe aortic stenosis. History of gout Fatty infiltration of the liver GI and DVT prophylaxis. Plan: Patient will be continued on the antibiotics in the form of Unasyn as per ID recommendations. Continue with aspirin Plavix and statins and amiodarone. Monitor renal function. Cardiology, pulmonary and nephrology is on board. Continue with Diaz catheter. We will continue to monitor mental status for another 24 hours. Anticipate discharged to rehab for PT OT and IV antibiotics. Monitor lytes and vitals. DVT and GI prophylaxis. Further recommendations of the clinical course of the patient DVT prophylaxis: Subcutaneous heparin GI Prophylaxis: Protonix Prognosis is guarded Time with Patient: Greater than 30
--- NOTE | 2019-03-25 14:25 | P.PN ---
Subjective Progress Note Date: 03/25/19 Principal diagnosis: Acute hypoxic respiratory failure secondary to cardiogenic shock and septic shock, acute endocarditis This is a 71-year-old male patient with known history of ischemic cardiomyopathy along with known history of coronary artery disease and previous aortic valve replacement, AVR, and previous coronary artery bypass surgery, who presented to the hospital because of chest pain and non-STEMI. The patient has had previous catheterizations with stenting done in the distal left main as well as the proximal circumflex. He has a chronically totally occluded RCA. As mentioned, the patient was admitted with chest pain or shortness of breath and acute non-STEMI. The patient underwent another cardiac catheterization and the patient was found to have taken stent to the distal left mainstem to proximal circumflex, patent BELTRAN to LAD, chronic totally occluded RCA. Recommendations were mainly to maximize medical management. The patient was being treated for congestion heart failure. He was receiving Lasix drip and he was having ongoing orthopnea. He was taken yesterday to the [facility] and the patient was given biventricular pacing/AICD. Noted postop, the patient was extubated. He became short of breath and went into significant amount of respiratory distress and within 10 minutes she had to be reintubated. He was brought into the intensive care unit intubated on a mechanical ventilator. Initial blood gases showed a pH of 7.28 with a pCO2 of 51 and pO2 of 234. Necessary vent changes were done. The most recent blood gas showed a pH of 7.48 with a pCO2 of 28 and pO2 of 229. The morning vent settings include a tidal volume 400 with a rate of 18 and FiO2 of 40% with 5. The setting was adjusted based on the most recent blood gas. I noted that the patient is also on pressors and overnight the patient has required norepinephrine infusion and currently is running at 0.1 mcg/kg per minute. The patient is also on Lasix drip at 10 mg an hour. He is producing urine output. However, the patient has developed an acute kidney injury. Cr eatinine was normal at the time of admission on 02/27/2019 and there has been progressive rise in the creatinine which is up to 2.6 at this point in time. He was he was developing fevers with a temperature 11.6 on 03/04/2019. The patient has blood culture sent a blood culture came back positive for enterococcus group D. The patient was on cefazolin. IV Zosyn was added by the primary care team. This morning, the patient is sedated with propofol is currently running at 50 mics. His, comfortable. He is producing urine output. Her net fluid balance is -642 mL for yesterday. His cardiac rhythm is paced. His white cell count is 19.4. He is obviously septic condition with a positive blood culture. UA the time of admission was negative. He has a Diaz catheter in place. Abdomen is soft. His umbilical hernia. Surgical wound site over the left biventricular pacemaker is dry clean and intact. No significant orotracheal secretions. Chest x-ray from today shows cardiomegaly and lower lobe consolidation as the patient is a left lower lobe consolidation of the right upper lobe! The echocardiogram at shown an ejection fraction of 20-25%. There is moderate concentric left ventricular hypertrophy. There is severe global hypokinesis. No pericardial effusion. The peak gradient across the aortic valve was 35 mmHg. It is a normal functioning bioprosthetic valve. There is moderate mitral regurgitation. Mild pulmonary hypertension. on 03/07/2019 the patient remains sedated and intubated on mechanical ventilator. The patient is on propofol for sedation. The patient is also on a mechanical ventilator on assist control mode with a tidal volume of 000 and the rate of 18 with an FiO2 of 40% and PEEP of 5. The chest x-ray from today shows stable findings and there is left lower lobe consolidation/effusion. ET tube is in a good location. The left ear showed a pH of 7.44 with a pCO2 of 34 and pO2 of 131. Based on this, there is a component of respiratory alkalosis and I dropped a respiratory rate down to 14. The telephone was kept at 500 for now. I took this patient off the Lasix therapy yesterday as the patient's CVP was running low and the patient was also developing acute kidney injury. Today CVP is also low measuring as high as 4-5 millimeters of mercury. Based on that, the patient was started on oral Lasix set of IV Lasix for cardiology. He is prod ucing adequate amount of urine output. Creatinine is also improving and is down to 2.1. The patient is afebrile. The patient was seen by infectious disease. Antibiotic adjustments were done and the patient was placed on a combination of Unasyn and gentamicin. No clear indication for endocarditis. The patient has 3 positive blood culture that was positive for E faecalis, in the patient was si mplified back to Unasyn and gentamicin was discontinued as the patient was found to be having a Enterococcus faecalis resistant to gentamicin.. The patient is producing adequate amount of urine output. He is still on pressors and the present doses been weaned down to 0.07 micrograms per kilogram per minute of norepinephrine infusion. The patient will be started on enteral feeding for nutritional support. Cardiology is on the case. Cardiac rhythm remains paced. No significant electrolyte imbalance in the patient's white cell count is down to 10.5. 03/08/2019, the patient remains intubated on a mechanical ventilator. The patient remains hemodynamically unstable requiring pressors and the norepinephrine infusion is running at 0.08 mcg/kg per minute. He is also on Prinivil at 40 mics per KG. The patient a mechanical ventilator on assist control mode with a tidal volume of 500 and rate of 18 with an FiO2 of 40% and a PEEP of 5. Chest x-ray is unchanged compared to yesterday and there are some white pulmonary vessel congestion. The patient is producing 25 mL of urine output on an hourly basis. Net fluid balance is positive to 11 mL over the past 24 hours. He is currently on oral Lasix. He is also on norepinephrine infusion. He is on enteral feeding for nutritional support. He is receiving before for sedation. Note that all of the blood cultures came back positive for Enterococcus faecalis. The patient remains on IV Unasyn. Follow-up cultures were obtained to make sure there is no ongoing bacteremia. There is a high likely what that it there may be a component of infective endocarditis. The patient will need a LISSET to evaluate this further. His cardiac rhythm is paced. The fibrillator pocket is clean and intact at this point in time. As for his continued kidney injury, the patient's creatinine is improving and the creatinine is down to 1.72. The white cell count is also down to 10.5 and the patient is responding to IV Unasyn for now. Reevaluated today on 03/09/2019, patient remains on mechanical ventilation, he is still on norepinephrine at 0.05 mcg/kg/m, still on propofol at 50 mcg/kg/m. He is on mechanical ventilation, assist control rate of 18, FiO2 is 40%, PEEP of 5. Tidal volume is 500. Transesophageal echocardiogram is suspicious for vegetations involving the aortic bioprosthetic valve there was also evidence of thickened mitral valve leaflets with moderate mitral regurgitation. His LV function was noted to be impaired ejection fraction of 20%. ABG this morning showed a pO2 of 120 pCO2 of 42 pH of 7.42 11 lites are normal renal profile is abnormal with BUN of 42 creatinine of 1.75 WBC count is 12.3 hemoglobin is 10.2. Chest x-ray is suspicious for mild interstitial edema and small bilateral pleural effusions. There is also some retrocardiac atelectasis. Patient is sedated, on mechanical ventilation, I have no plans to wean the patient today since LISSET was scheduled to be done shortly after I evaluated the patient. Patient was reevaluated today on 03/10/2019, remains on mechanical ventilation, his ventilator settings are assist control rate of 14 FiO2 is 40% PEEP is 5 tidal volume is 500. Patient is on Cardizem drip as per cardiology 5 mg per hour, his also on metoprolol, and he is on norepinephrine at 0.05 mcg/kg/m. Propofol is 25 mcg/kg/m. Chest x-ray showed cardiomegaly and prominent pulmonary vasculature with minimal basilar atelectasis. ABG showed a pO2 of 117 pCO2 of 43 pH of 7.45. WBC count is 14.8 hemoglobin is 10.5. Electrolytes are relatively normal. Renal profile showed a BUN of 42 creatinine of 1.70. Patient remains sedated, however I plan to hold his sedation today, and hopefully assess mental status and decide whether we can proceed with any further weaning trials. Family is at bedside and they were updated on his condition and on the fact that he has endocarditis. Antibiotics were addressed by Dr. Nguyễn, patient is now on Unasyn. He also remains on Rocephin. Reevaluated today on 03/11/2019, remains in the ICU on mechanical ventilation. His ventilator settings are assist control rate of 14, tidal volume is 500 FiO2 of 35% PEEP is 5. Remains on propofol at 30 mcg/kg/m, he is off pressors. ABG this morning showed a pO2 of 103 pCO2 of 39 pH of 7.50. Electrolytes are normal however his BUN is 51 creatinine is 1.84. WBC count is 11.4 hemoglobin is 10.2. Patient remains on nutritional support via enteral feeding. Remains on antibiotics for his underlying endocarditis as per infectious disease. Yesterday the patient was given a sedation interruption, and a trial of weaning, however he was extremely agitated, restless, and could not go on to wean or extubated the patient. This would be reattempted again today. Reevaluated today in the ICU on 03/12/2019, patient remains on mechanical ventilation, his ventilator settings are tidal volume of 500 assist control rate of 14 FiO2 35% PEEP of 5. Patient remains on propofol, presently off norepinephrine, patient was given a weaning trial yesterday, however he became extremely tachycardic, and restless agitated. Today I plan to wean the patient slowly on Precedex to be started after stopping propofol. Patient will be awakened and will be given definitely a weaning trial today. Depending on how he does on pressure support and CPAP, may or may not proceed to full extubation. Chest x-ray is showing mild congestive changes. ABG this morning showed a pO2 of 77 pCO2 of 45 pH of 7.48 electrolytes showed elevated sodium of 148 BUN is 61 creatinine 1.78. Bicarb is 34 WBC count is 10.2 hemoglobin is 10.1. Patient remains on antibiotics, not requiring pressors at this point, has been intermittently on and off norepinephrine Reevaluated today on 03/13/2019, patient was extubated from mechanical venti lation yesterday, patient is presently on high flow nasal cannula, O2 saturation is in the mid 90s, tolerated the extubation well since yesterday. Chest x-ray continues to show evidence of mild congestive heart failure. However the patient has elevated sodium today, it is 153, and I have switched his IV fluid to D5W, will hold on the Lasix for now, and he will receive D5W at 50 mL per hour. Patient received Lasix earlier today by nephrology. Patient remains on antibiotics for his endocarditis. And he is hemodynamically stable at present. Reevaluated today on 03/14/2019, patient remains off mechanical ventilation, on high flow nasal cannula, O2 saturation is excellent. Chest x-ray showed mild interstitial edema. Patient continues to have intermittent episodes of confusion and disorientation. CT of the head is negative for septic emboli involving the brain. Sodium remains a bit elevated, and the process of correcting his sodium with D5W. Lasix is still on hold. BUN is 69 creatinine is 1.99 sodium today is 150. is at bedside, and she was updated on his condition, and explained to her that the patient may have metabolic encephalopathy. Related to his hypernatremia and sepsis with bacteremia. Patient was reevaluated today on 03/15/2019, seems to be doing fairly well, remains off mechanical ventilation,he is steadily improving, Denies any specific complaints,his mental status seems to be intermittently waxing and waning. But today he seems to be more appropriate.chest x-ray continues to show evidence of interstitial edema/CHF, his electrolytes are improving sodium is down to 146. BUN is 75 creatinine is 2.19. ABG last night showed a pO2 of 61 pCO2 48 pH of 7.43, hence his FiO2 was increased and he is presently on 6 L nasal cannula. On 03/17/2019 patient seen in follow-up in the intensive care unit, he is awake and alert, in no acute distress, he is currently on room air, with a pulse ox of 92%, maintenance IV fluids are present and normal saline at a rate of 10 ML per hour, denies any worsening dyspnea, lung sounds reveal a few scattered wheezes, no rhonchi, no rales. No altered mentation, no fever or chills, vital signs are stable. Follow up blood cultures are negative from 03/09/2019, and 03/10/2019. Patient is a combination of Unasyn and Rocephin for antibiotic coverage. No acute events overnight, today's labs have been reviewed, showing blood cell count of 15.9, hemoglobin of 11.1, electrolytes within normal limits, renal profile is stable, with BUN of 75 and creatinine of 2.10. On 03/23/2019 patient seen in follow-up on selective care unit, he is awake and alert, in no acute distress, he is currently on 2 L of oxygen is pulse ox is 100%, hemodynamically stable, no complaints of chest pain, no cough or congestion, afebrile, patient is on Unasyn for enterococcus bacteremia, follow blood cultures from March 09 and 03/10/2019 have shown no growth so far. Patient is on oral Lasix, renal profile is improving, patient is awake and alert, oriented 3, no altered mentation. Right IJ has been discontinued, patient has a PICC line put in. In the plan is for patient to complete 6 weeks of Unasyn for bacteremia, patient remains in atrial fibrillation, with a controlled rate, currently on amiodarone and Lopressor, cardiology is following On 03/15/2019 patient seen in follow-up on selective care unit, he is awake and alert, in no acute distress, no acute events overnight. He is on 2 L of oxygen his pulse ox is 99%, no fever or chills. Does have some exertional dyspnea, and a generalized weakness, he is working with physical therapy, he is anticipated to go to subacute rehabilitation to [facility] sometime today. He is on Unasyn for enterococcus bacteremia. Today's labs have been reviewed, his renal profile continues to improve, creatinine is down to 1.71, BUN is 55, that is the electrolytes were within normal limits, white blood cell count is 11.2, hemoglobin is 12.5 Objective - Vital Signs Vital signs: Vital Signs Temp 96.9 F L 03/25/19 12:00 Pulse 82 03/25/19 12:00 Resp 18 03/25/19 12:00 BP 121/66 03/25/19 12:00 Pulse Ox 99 03/25/19 12:00 Intake & Output 03/24/19 03/25/19 03/25/19 18:59 06:59 18:59 Intake Total 340 380 Output Total 950 800 Balance -610 -800 380 Weight 125.5 kg Intake: Intake, IV Titration 100 180 Amount Ampicillin-Sulbactam 3 gm 100 100 In Sodium Chloride 0.9% 100 ml @ 200 mls/hr IVPB Q8HR [facility] Rx#:[id number] IV Fluid Continuation 200 80 ml @ 0 mls/hr IV .STK- [facility] Rx#:[id number] Oral 240 200 Tube Feeding 0 Output: Urine 950 800 Other: Voiding Method Indwelling Catheter Indwelling Catheter Indwelling Catheter # Voids 0 0 ABP, PAP, CO, CI - Last Documented Arterial Blood Pressure 105/93 - Exam GENERAL EXAM: Alert, pleasant, 73-year-old obese white male, 2 L of oxygen per nasal cannula, comfortable in no apparent distress. HEAD: Normocephalic/atraumatic. EYES: Normal reaction of pupils, equal size. Conjunctiva pink, sclera white. NOSE: Clear with pink turbinates. THROAT: No erythema or exudates. NECK: No masses, no JVD, no thyroid enlargement, no adenopathy. CHEST: No chest wall deformity. Symmetrical expansion. LUNGS: Equal air entry, no rhonchi, no rales, no wheezes CVS: Regular rate and rhythm, normal S1 and S2, no gallops, no murmurs, no rubs ABDOMEN: Soft, obese, nontender. No hepatosplenomegaly, normal bowel sounds, no guarding or rigidity. EXTREMITIES: No clubbing, no edema, no cyanosis, 2+ pulses and upper and lower extremities. MUSCULOSKELETAL: Muscle strength and tone normal. SPINE: No scoliosis or deformity SKIN: No rashes CENTRAL NERVOUS SYSTEM: Alert and oriented -3. No focal deficits, tone is normal in all 4 extremities. PSYCHIATRIC: Alert and oriented -3. Appropriate affect. Intact judgment and insight. - Labs CBC & Chem 7: 03/25/19 05:35 03/25/19 05:35 Labs: Abnormal Lab Results - Last 24 Hours (Table) 03/24/19 03/24/19 03/25/19 Range/Units 17:14 20:51 05:35 WBC 11.2 H (3.8-10.6) k/uL Hgb 12.5 L (13.0-17.5) gm/dL MCHC 29.7 L (31.0-37.0) g/dL RDW 19.5 H (11.5-15.5) % Neutrophils # 9.3 H (1.3-7.7) k/uL Lymphocytes # 0.9 L (1.0-4.8) k/uL BUN (9-20) mg/dL Creatinine (0.66-1.25) mg/dL Glucose (74-99) mg/dL POC Glucose (mg/dL) 108 H 138 H (75-99) mg/dL 03/25/19 03/25/19 03/25/19 Range/Units 05:35 06:37 11:36 WBC (3.8-10.6) k/uL Hgb (13.0-17.5) gm/dL MCHC (31.0-37.0) g/dL RDW (11.5-15.5) % Neutrophils # (1.3-7.7) k/uL Lymphocytes # (1.0-4.8) k/uL BUN 55 H (9-20) mg/dL Creatinine 1.71 H (0.66-1.25) mg/dL Glucose 113 H (74-99) mg/dL POC Glucose (mg/dL) 106 H 106 H (75-99) mg/dL Microbiology - Last 24 Hours (Table) 03/24/19 13:25 Urine Culture - Preliminary Urine,Catheterized Assessment and Plan Plan: Assessment: 1 acute hypoxic respiratory failure secondary to cardiogenic shock and septic shock. Patient was extubated successfully on 03/12/2019. 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 3 severe LV dysfunction and cardiomyopathy, ischemic in nature, ejection fraction of 20-25% post-insertion of AICD. 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 6 septic shock secondary to enterococcal infection 7 acute kidney injury secondary to sepsis, ATN, and possibly contrast nephropathy 8 history of underlying COPD, hypertension, hyperlipidemia, obesity, and general ized anxiety disorder. 9 hypernatremia secondary to free water depletion, and diuretics, hence we'll change the IV fluid to D5W, and hydrate the patient cautiously with D5W, and liberalize free water intake 10 acute metabolic encephalopathy secondary to electrolytes imbalance, hypernatremia, and sepsis as well as bacteremia. Plan: Patient is without any specific complaints, no fever or chills, no worsening dyspnea, maintaining stable oxygenation on 2 L, follow blood cultures have been negative, he is on Unasyn infusions for enterococcus bacteremia, acute events overnight, he is anticipated for discharge to [facility]. I performed a history & physical examination of the patient and discussed their management with my nurse practitioner, Dana Alexandre. I reviewed the nurse pra ctitioner's note and agree with the documented findings and plan of care. Lung sounds are positive for scattered wheezes throughout the lung nolen. The findings and the impression was discussed with the patient. I attest to the documentation by the nurse practitioner. Time with Patient: Less than 30
[2019-03-25] MEDS: ACETAMINOPHEN TAB 325 MG TAB PO PRN (16:17)
[2019-03-25 17:26] LABS: Glucose,Whole Blood 100 mg/dL (75-99)
[2019-03-25 21:25] LABS: Glucose,Whole Blood 126 mg/dL (75-99)
--- NOTE | 2019-03-25 21:30 | P.PN ---
Subjective Progress Note Date: 03/25/19 Principal diagnosis: Acute non-ST elevated IA Acute on chronic CHF Patient is a 73-year-old male with a known history of coronary artery disease status post CABG, history of PCI and recent cardiac catheterization with stent placement in September , severe coronary disease, chronic CHF with systolic dysfunction ejection fraction 20-25%, COPD possible underlying restrictive lung disease, paroxysmal atrial fibrillation and morbid obesity with BMI 41.5 and other multiple medical problems came to ER with complaints of shortness of breath, worsening for the past 10 days. Patient also having chest pain on and off and felt like tightness of the chest. Patient also says that his heart rate was increasing 100 at home. Patient is supposed to get pacemaker due to tachybradycardia in February 24 2019 but was postponed to 2018. Patient has been sleeping mostly for the past 1 week. Chest x-ray showed borderline cardiomegaly. Unchanged from prior study. EKG showed sinus tachycardia with premature ventricular complexes and left Atrial Enlargement. Troponin 2.37 and 1.49, WBC 13.0 BNP 10637 03/02/2019 Patient is currently lying in the bed comfortably. Awake alert oriented 3. No complaints of chest pain. Shortness of breath improving. Cardiology is planning for cardiac catheterization tomorrow. 03/03/2019 Patient is currently lying in the bed comfortably. Shortness of breath with ambulation. Patient is otherwise status post cardiac catheterization today loreto wed patent stents and maximal medical therapy was recommended. Patient also has been having nonsustained V. tach and a low ejection fraction. Currently being evaluated for AICD placement. EP was consulted. No complaints of chest pain. Continued on IV Lasix. No nausea vomiting or abdominal pain. No diarrhea or dysuria. Renal function is fairly stable. 03/04/2019 Patient is currently lying in the bed. Shortness of breath with slight improvement. Status post cardiac catheterization and was found have patent stent. Patient does have nonsustained V. tach. Patient was seen by EP for possible biventricular pacemaker implantation with defibrillator. Patient was started on Lasix drip due to acute on chronic CHF with systolic dysfunction. No fever no chills. No cough or sputum production. No other acute overnight issues otherwise. 03/05/2019 Patient is currently lying in the bed comfortable. Denied any complaints of cough or sputum production. Patient was febrile last night. Did have leukocytosis at 15.8 Chest x-ray was done. Chest x-ray showed increasing left lung opacification lingular pneumonia is a primary consideration. Patient was started on antibiotics the form of Zosyn. Patient is currently on oral Lasix. Patient was scheduled for AICD placement. Denied any chest pain. No nausea vomiting or diarrhea. Creatinine level increased to 1.9 today Follow-up CBC and BMP tomorrow. 03/16/2019 Patient remains in the ICU. Is a status post extubation. Currently he is on oxygen nasal cannula 6 L/m with his oxygen saturation at 99%. Rest of vitals show a respiratory rate of 22-25, with tachycardia 108 07/11/2013, rest of vitals stable and patient is afebrile for the last few days. Labs showing resistant leukocytosis at 16.8 K, creatinine stable at 2.0. He has no chest pain, no headache. No change in bowel habits. He remains on Unasyn and ceftriaxone as per infectious disease recommendation, his Lasix was lowered to 40 mg IV daily, and he is off the amiodarone drip and currently is on amiodarone pills at 200 mg twice daily. Patient is able to eat and drink so D5W was stopped. Pain is controlled. 03/17/2019 Patient gives improving, he is awake and oriented, he knows why he is in the hospital. He feels generally weak and still short of breath. He is saturating 78-88% on room air, however patient is non-adherent to his oxygen therapy and he keeps taken off his nasal cannula. His saturation goes up to 97% on 4 L oxygen via high flow cannula. No chest pain. Slightly tachycardic. Blood pressure stable. Still have leukocytosis of 15.9 and creatinine stable at 2.1. Sugar control. Patient remains on Unasyn and ceftriaxone and he will need a PICC line and prolonged antibiotic course. ECF is recommended for patient upon discharge. Also is on Lasix 40 mg twice daily and amiodarone 200 mg twice daily basis metoprolol 75 mg 3 times daily. Pain controlled Discussed with the staff today 03/18/2019 Patient was transported to the select unit at the general medical floor. He is awake and alert, he still short of breath with decreased air entry in both sides, however he denies chest pain, his Kassy to tolerate his diet. His Vitas looks stable. Patient has persistent leukocytosis at 15.9 K, creatinine is 2.3. And sugars controlled. Patient remains on Unasyn and Rocephin per infectious disease team with cardiology and pulmonary team R following closely. 03/19/2019 Family concern that the patient was still not at his baseline mental status and they were asking for neurology evaluation. Neurologist recommended repeat CT of the head, EEG, with lab work including TSH ammonia and vitamin B12. Patient is still short of breath with abdominal distention. He is profoundly weak and yesterday did not participate with physical therapy. Cardiology and infectious disease R following the case closely and they cleared the patient for PICC line as he has negative blood culture on repeat testing. On for him for prolonged antibiotics for 6 weeks. Lap showing persistent leukocytosis of 16.1 K, creatinine 2.4 and sodium 147. Patient is followed closely by pulmonary and renal team. Patient has couple of loose bowel movements. We will order abdominal x-rays 03/20/2019 Patient in the general medical floor, is awake and oriented to place but not to time or person, he answers some questions appropriately and follow commands. He does not look in distress. He denies chest pain or dyspnea. His Vitas looks stable however he still feels a bit tachypneic, his saturating 100% on 2 L oxygen via nasal cannula. He still have mild leukocytosis of 16.1 K creatinine is 2.4, that is from yesterday repeat labs from today showing hypernatremia with sodium 151, patient was started on D5W.. Diaz catheter is in place. PICC line was placed yesterday while I J line was removed. EEG showing no seizure-like activity but rather he has metabolic encephalopathy. Workup of B12, ammonia and TSH/T4 are nonrevealing for his mental status change. Patient is followed closely by several consultants including cardiology, pulmonary, nephrology and urology. Infectious disease help her with managing his antibiotics. Patient will need to ECF for rehab and antibiotic therapy upon discharge 03/21/2019 patient is more awake but still confused, hemodynamically stable but is tachypneic with a breathing rate 20-26.sodium improved to 149, creatinine 2.2, glucose is 155. His been followed by several consultants including pulmonary, m ost likely patient has metabolic encephalopathy secondary to his his SBE and renal failure with electrolyte abnormality. We'll increase the rate of D5W to 70 mL/h as sodium is 149 03/22/2019 Patient is more oriented to day, however he still somewhat confused. His more drowsy and make up easily to verbal and tactile stimuli and he answers some questions appropriately. Vitals stable. Glucose controlled sodium is 144. Creatinine 2.0. Magnesium 2.8. Patient is being followed by several consu ltants. Sodium is 144 and so we lowered his D5W to 60 mL/h. He got 1 dose of Lasix. Prognosis remains guarded 03/23/2019 Patient is more awake and oriented today, he is easily answering questions more easily and he remembers he is at [facility] in [place]. However he could not remember what his medical problem and why he was in the hospital. Hemodynamically stable. Sodium skin down to 139 creatinine 1.99. Sugars controlled. Leukocytosis improving down to 11.1 K.we will dc his d5w and encourage oral hydration 03/24/2019 Patient is awake alert and slightly confused compared to yesterday as per his daughter at bedside. Otherwise patient is afebrile. Creatinine slightly inc reased to 2.08. Patient is awake alert oriented 2. Penicillin complaints of shortness of breath. No cough or congestion. Patient does have generalized weakness. Able to eat slowly. Patient is status post septic shock secondary to infected endocarditis. 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 Diaz catheter is being exchanged today. Anticipate discharge in next 24 hours to rehab for IV antibiotics and PTOT. 03/25/2019 Patient is currently lying in the bed. Less confused compared to yesterday. Saturating well on 2 L oxygen when as a cannula. Patient is having generalized weakness and physical therapy is following. Otherwise patient is being continu ed on antibiotics in the form of Unasyn for enterococcus infective endocarditis. Diaz catheter was exchanged yesterday. Creatinine level improved to 1.71 today. WBC 11.2 and hemoglobin 12.5. CALL PERSON is following for rehab transfer. Current medications reviewed. Active Medications Acetaminophen (Tylenol Tab) 650 mg PO Q6HR PRN PRN Reason: Mild Pain Last Admin: 03/25/19 16:17 Dose: 650 mg Documented by: Albuterol/Ipratropium (Duoneb 0.5 Mg-3 Mg/3 Ml Soln) 3 ml INHALATION RT-QID PRN PRN Reason: Shortness Of Breath Or Wheezing Last Admin: 03/23/19 04:17 Dose: 3 ml Documented by: Albuterol/Ipratropium (Duoneb 0.5 Mg-3 Mg/3 Ml Soln) 3 ml INHALATION RT-QID [facility] Last Admin: 03/25/19 20:53 Dose: 3 ml Documented by: Allopurinol (Zyloprim) 100 mg PO HS PRN PRN Reason: gout Amiodarone HCl (Cordarone) 200 mg PO BID [facility] Last Admin: 03/25/19 08:30 Dose: 200 mg Documented by: Aspirin (Aspirin) 81 mg PO DAILY [facility] Last Admin: 03/25/19 08:30 Dose: 81 mg Documented by: Atorvastatin Calcium (Lipitor) 40 mg PO DAILY [facility] Last Admin: 03/25/19 08:30 Dose: 40 mg Documented by: Bisacodyl (Dulcolax) 10 mg PO DAILY PRN PRN Reason: Constipation Last Admin: 03/19/19 11:44 Dose: 10 mg Documented by: Clopidogrel Bisulfate (Plavix) 75 mg PO HS [facility] Last Admin: 03/24/19 20:07 Dose: 75 mg Documented by: Furosemide (Lasix) 40 mg PO DAILY [facility] Last Admin: 03/25/19 08:30 Dose: 40 mg Documented by: Heparin Sodium (Porcine) (Heparin) 5,000 unit SQ Q12HR [facility] Last Admin: 03/25/19 08:31 Dose: 5,000 unit Documented by: Ampicillin Sodium/Sulbactam (Sodium 3 gm/ Sodium Chloride) 100 mls @ 200 mls/hr IVPB Q8HR [facility] Last Admin: 03/25/19 16:13 Dose: 200 mls/hr Documented by: Insulin Aspart (Novolog) 0 unit SQ ACHS [facility]; Protocol Last Admin: 03/25/19 17:32 Dose: Not Given Documented by: Metoprolol Tartrate (Lopressor) 100 mg PO TID [facility] Last Admin: 03/25/19 16:14 Dose: 100 mg Documented by: Miscellaneous Information (Potassium Per Protocol) 1 each MISCELLANE DAILY PRN; Protocol PRN Reason: Per Protocol Nitroglycerin (Nitrostat) 0.4 mg SUBLINGUAL Q5M PRN PRN Reason: Chest Pain Nystatin (Mycostatin Oint) 1 applic TOPICAL BID [facility] Last Admin: 03/25/19 08:42 Dose: 1 applic Documented by: Pantoprazole Sodium (Protonix) 40 mg IVP DAILY [facility] Last Admin: 03/25/19 08:30 Dose: 40 mg Documented by: Potassium Chloride (K-Dur 20) 20 meq PO DAILY [facility] Last Admin: 03/25/19 08:30 Dose: 20 meq Documented by: Objective - Vital Signs Vital signs: Vital Signs Temp 96.9 F L 03/25/19 12:00 Pulse 66 03/25/19 16:20 Resp 18 03/25/19 12:00 BP 121/66 03/25/19 12:00 Pulse Ox 99 03/25/19 12:00 Intake & Output 03/24/19 03/25/19 03/25/19 18:59 06:59 18:59 Intake Total 340 570 Output Total 950 800 Balance -610 -800 570 Weight 125.5 kg Intake: Intake, IV Titration 100 180 Amount Ampicillin-Sulbactam 3 gm 100 100 In Sodium Chloride 0.9% 100 ml @ 200 mls/hr IVPB Q8HR [facility] Rx#:[id number] IV Fluid Continuation 200 80 ml @ 0 mls/hr IV .Verastem- [facility] Rx#:[id number] Oral 240 390 Tube Feeding 0 Output: Urine 950 800 Other: Voiding Method Indwelling Catheter Indwelling Catheter Indwelling Catheter # Voids 0 0 ABP, PAP, CO, CI - Last Documented Arterial Blood Pressure 105/93 - Exam PHYSICAL EXAMINATION: Patient is lying in the bed comfortably, no acute distress, awake alert and oriented 2. Confused and lethargic. morbidly obese... HEENT: Normocephalic. Neck is supple. Pupils reactive. Nostrils clear. Oral cavity is moist. Ears reveal no drainage. Neck reveals no JVD, carotid bruits, or thyromegaly. CHEST EXAMINATION: Trachea is central. Symmetrical expansion. Bibasilar diminished air entry. Lung nolen clear to auscultation and percussion. CARDIAC: Normal S1, S2 with no gallops. No murmurs ABDOMEN: Soft. Obese, distended, Bowel sounds normal. No organomegaly. No abdominal bruits. Extremities: 2+ edema. No clubbing or cyanosis Neurologically awake, alert, oriented x3 with well-coordinated movements. No focal deficits noted Skin: No rash or skin lesions. Psychiatric: Coperative. Nonsuicidal Musculoskeletal: No joint swelling or deformity. Normal range of motion. - Labs CBC & Chem 7: 03/25/19 05:35 03/25/19 05:35 Labs: Abnormal Lab Results - Last 24 Hours (Table) 03/24/19 03/24/19 03/25/19 Range/Units 17:14 20:51 05:35 WBC 11.2 H (3.8-10.6) k/uL Hgb 12.5 L (13.0-17.5) gm/dL MCHC 29.7 L (31.0-37.0) g/dL RDW 19.5 H (11.5-15.5) % Neutrophils # 9.3 H (1.3-7.7) k/uL Lymphocytes # 0.9 L (1.0-4.8) k/uL BUN (9-20) mg/dL Creatinine (0.66-1.25) mg/dL Glucose (74-99) mg/dL POC Glucose (mg/dL) 108 H 138 H (75-99) mg/dL 03/25/19 03/25/19 03/25/19 Range/Units 05:35 06:37 11:36 WBC (3.8-10.6) k/uL Hgb (13.0-17.5) gm/dL MCHC (31.0-37.0) g/dL RDW (11.5-15.5) % Neutrophils # (1.3-7.7) k/uL Lymphocytes # (1.0-4.8) k/uL BUN 55 H (9-20) mg/dL Creatinine 1.71 H (0.66-1.25) mg/dL Glucose 113 H (74-99) mg/dL POC Glucose (mg/dL) 106 H 106 H (75-99) mg/dL Microbiology - Last 24 Hours (Table) 03/24/19 13:25 Urine Culture - Preliminary Urine,Catheterized Assessment and Plan Assessment: Cardiogenic and septic shock. 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 Status post cardiac catheterization showing patent stents. Shortness of breath due to acute on chronic CHF with systolic dysfunction. Ejection fraction 20-25%. Patient does have elevated BNP and increased leg swelling. Acute kidney injury likely due to diuresis. Possible ATN and cardiorenal. Acute Urinary retention. Currently on Diaz catheter. Trial void once patient is ambulatory. Ischemic cardiomyopathy. Status post AICD placement. Possible underlying COPD with extrapulmonary restriction of lung. Paroxysmal atrial fibrillation. Severe Coronary artery disease and history of stent placement recently on September 2018 History of coronary artery bypass graft Hypertension Hyperlipidemia Osteoarthritis Chronic anxiety/PTSD Morbid obesity with BMI 41.5 History of aortic valve replacement due to severe aortic stenosis. History of gout Fatty infiltration of the liver GI and DVT prophylaxis. Plan: Patient will be continued on the antibiotics in the form of Unasyn as per ID recommendations. Continue with aspirin Plavix and statins and amiodarone. Continue with Lasix 40 mg daily. Monitor renal function. Cardiology, pulmonary and nephrology is on board. Continue with Diaz catheter. We will continue to monitor mental status . Anticipate discharged to rehab for PT OT and IV antibiotics. Monitor lytes and vitals. DVT and GI prophylaxis. Further recommendations of the clinical course of the patient DVT prophylaxis: Subcutaneous heparin GI Prophylaxis: Protonix Prognosis is guarded Time with Patient: Greater than 30
--- NOTE | 2019-03-25 22:02 | P.PN ---
Subjective Progress Note Date: 03/25/19 This is a 73-year-old male with known history of ischemic cardiomyopathy along with known history of coronary artery disease and previous aortic valve replacement, AVR, and previous coronary artery bypass surgery. He presented on March 01 because of chest pain and found to have non-STEMI. He underwent cardiac catheterization with Dr. Juarez on 03/03 and the patient was found to have patent stent to the distal left mainstem to proximal circumflex, patent BELTRAN to LAD, chronic totally occluded RCA. Recommendations were mainly to maximize medical management. Patient was apparently having runs of V. tach and a consult was added for Dr. Ho. Patient subsequently underwent a biventricular ICD implantation on March 05. Patient was intubated prior to the procedure as apparently he is unable to lay flat for this. He received 700 mL of fluid during procedure. He was extubated last evening for only 3 minutes and was re- intubated. He was given Lasix 40 mg IV push followed by Lasix drip at 10 mg per hour. The Lasix to was discontinued this morning. Patient remains intubated, on sedation and on levo fed. His chest x-ray this morning reveals a right upper lobe pneumonia and probable heart failure. Patient has been running fevers up to 101.6 on evening of 925. White count 20.6, renal function is worsening with a BUN 45 and creatinine 2.6. Urinalysis was clear with nitrate and l eukoesterase negative. Urine output has been on the lower side running about 50 mL per hour or less. Blood culture from 03/04 is group D enterococcus and thus this consult was requested. 03/09/2019 the patient had evidence of isolated enterococcal bacteremia. The case was discussed with cardiology and a LISSET has been performed today which is verified evidence of a vegetation on the bioprosthetic aortic valve. There is no evidence of any ring abscess or of extensive valvular disease. The patient has shown some improvement in that his fever is improved and his leukocytosis is improving. 03/10/2019 patient remains intubated sedated and mechanically ventilated. His oxygen requirements have decreased in with increased dose of beta russell treatment started as some further improvement of his rate and dysrhythmia. He has been seen by cardiovascular surgeon. 03/11/2019 patient had weaning trial not successful to be retried tomorrow. Off of vasopressor therapy and stable. 03/12/2019 patient has had improvement of his status. He is less sedated. He is on CPAP and doing well likely be extubated when he is a bit more awake. 03/13/2019 the patient is extubated sitting upright feeling considerably better able to eat some nutrition. Not having much chest pain shortness of breath is improved. 03/15/2019 Patient has had some further improvement. He is less short of breath. He is without significant discomforts. Able to eat without difficulties. 03/16/2019 reveals the patient has some further improvement. Is more awake and interactive 03/18/2019 the patient has had some further improvement of his status in that he is with less shortness of breath, has required no further vasopressor therapy is responded somewhat well to current interventions. Negative blood cultures have been verified. 03/23/2019 the patient's status has waxed and waned his discharge does continue to be evaluated when he is more stable. Does seem to be having a better day today than prior. He is not having fevers or chills and actually recognizes me by name today. 03/24/2019 patient i s feeling somewhat better. He is denying intermittent troubles. He is awaiting his transfer to rehabilitation to receive his antibiotic therapy as well as attempts to improve his physical condition. 04/21/2019 his ascending of his antibiotics of Unasyn 3 g IV piggyback every 6 hours with Rocephin 2 g daily. Weekly blood work is requested with a CBC with differential, BMP, and an ESR while on antibiotic therapy. 03/25/2019 the patient's status has stabilized. Plans were for his transfer to [place] today. Apparently some difficulty has occurred and he will not be going to [place]. Alternative options are being investigated. The patient's status is discussed with his brother Luca. Objective - Vital Signs Vital signs: Vital Signs Temp 98.4 F 03/25/19 20:00 Pulse 74 03/25/19 21:03 Resp 17 03/25/19 20:00 BP 113/78 03/25/19 20:00 Pulse Ox 98 03/25/19 20:00 Intake & Output 03/25/19 03/25/19 03/26/19 06:59 18:59 06:59 Intake Total 840 Output Total 800 300 Balance -800 840 -300 Weight 125.5 kg Intake: Intake, IV Titration 180 Amount Ampicillin-Sulbactam 3 gm 100 In Sodium Chloride 0.9% 100 ml @ 200 mls/hr IVPB Q8HR [facility] Rx#:[id number] IV Fluid Continuation 200 80 ml @ 0 mls/hr IV .STK- [facility] Rx#:[id number] Oral 660 Tube Feeding 0 Output: Urine 800 300 Other: Voiding Method Indwelling Catheter Indwelling Catheter # Voids 0 # Bowel Movements 0 ABP, PAP, CO, CI - Last Documented Arterial Blood Pressure 105/93 - Exam Gen: This is a 73-year-old male. He has tolerated extubation well. Not having much shortness of breath. On the exam he has no tenderness over the pacemaker and does not recall it even being there. HEENT: Head is atraumatic, normocephalic. Pupils equal, round. Sclerae is anicteric. Conjunctiva pink. Oral mucous membranes are moist. Appears patient is edentulous. ET and gastric tube are in place orally. NECK: Supple. No JVD. No lymphadenopathy. No thyromegaly. LUNGS: Symmetrical air entry with few expiratory wheezes basilar crackles or bronchial sounds HEART: Regular rate and rhythm. No murmur. There is a dressing over the AICD, left upper chest wall, no drainage. No significant edema around the area. ABDOMEN: Soft. Bowel sounds are present. No masses. No tenderness. No redness under her abdominal fold. Diaz catheter draining clear dmitry urine. EXTREMITIES: Trace bilateral pedal edema. No wounds, no cellulitis noted. Dorsalis pedis 1+ bilaterally. NEUROLOGICAL: Mental status improved today, was just having his dinner and was able to recognize me by name. He recognizes his brother by name. He is somewhat of a poor historian but was able to move upper and lower extremities. - Labs CBC & Chem 7: 03/25/19 05:35 03/25/19 05:35 Labs: Abnormal Lab Results - Last 24 Hours (Table) 03/25/19 03/25/19 03/25/19 Range/Units 05:35 05:35 06:37 WBC 11.2 H (3.8-10.6) k/uL Hgb 12.5 L (13.0-17.5) gm/dL MCHC 29.7 L (31.0-37.0) g/dL RDW 19.5 H (11.5-15.5) % Neutrophils # 9.3 H (1.3-7.7) k/uL Lymphocytes # 0.9 L (1.0-4.8) k/uL BUN 55 H (9-20) mg/dL Creatinine 1.71 H (0.66-1.25) mg/dL Glucose 113 H (74-99) mg/dL POC Glucose (mg/dL) 106 H (75-99) mg/dL 03/25/19 03/25/19 03/25/19 Range/Units 11:36 17:06 21:24 WBC (3.8-10.6) k/uL Hgb (13.0-17.5) gm/dL MCHC (31.0-37.0) g/dL RDW (11.5-15.5) % Neutrophils # (1.3-7.7) k/uL Lymphocytes # (1.0-4.8) k/uL BUN (9-20) mg/dL Creatinine (0.66-1.25) mg/dL Glucose (74-99) mg/dL POC Glucose (mg/dL) 106 H 100 H 126 H (75-99) mg/dL Microbiology - Last 24 Hours (Table) 03/24/19 13:25 Urine Culture - Preliminary Urine,Catheterized Laboratory Results WBC 11.2 k/uL (3.8-10.6) H 03/25/19 05:35 RBC 4.30 m/uL (4.30-5.90) 03/25/19 05:35 Hgb 12.5 gm/dL (13.0-17.5) L 03/25/19 05:35 Hct 42.2 % (39.0-53.0) 03/25/19 05:35 MCV 98.2 fL (80.0-100.0) 03/25/19 05:35 MCH 29.2 pg (25.0-35.0) 03/25/19 05:35 MCHC 29.7 g/dL (31.0-37.0) L 03/25/19 05:35 RDW 19.5 % (11.5-15.5) H 03/25/19 05:35 Plt Count 173 k/uL (150-450) 03/25/19 05:35 Neutrophils % 83 % 03/25/19 05:35 Neutrophils % (Manual) 84 % 03/18/19 05:55 Lymphocytes % 8 % 03/25/19 05:35 Lymphocytes % (Manual) 13 % 03/18/19 05:55 Monocytes % 7 % 03/25/19 05:35 Monocytes % (Manual) 3 % 03/18/19 05:55 Eosinophils % 1 % 03/25/19 05:35 Basophils % 0 % 03/25/19 05:35 Neutrophils # 9.3 k/uL (1.3-7.7) H 03/25/19 05:35 Neutrophils # (Manual) 13.36 k/uL (1.3-7.7) H 03/18/19 05:55 Lymphocytes # 0.9 k/uL (1.0-4.8) L 03/25/19 05:35 Lymphocytes # (Manual) 2.07 k/uL (1.0-4.8) 03/18/19 05:55 Monocytes # 0.8 k/uL (0-1.0) 03/25/19 05:35 Monocytes # (Manual) 0.48 k/uL (0-1.0) 03/18/19 05:55 Eosinophils # 0.1 k/uL (0-0.7) 03/25/19 05:35 Basophils # 0.0 k/uL (0-0.2) 03/25/19 05:35 Nucleated RBCs 0 /100 WBC (0-0) 03/18/19 05:55 Manual Slide Review Performed 03/18/19 05:55 Polychromasia Present 03/18/19 05:55 Hypochromasia Marked 03/25/19 05:35 Poikilocytosis Slight 03/25/19 05:35 Anisocytosis Slight 03/25/19 05:35 Anisocytosis (manual) Present 03/18/19 05:55 Macrocytosis Moderate 03/25/19 05:35 PT 11.1 sec (9.0-12.0) 03/10/19 10:35 INR 1.0 (<1.2) 03/10/19 10:35 APTT 53.7 sec (22.0-30.0) H 03/02/19 21:57 Sample Site rbach 03/15/19 01:00 ABG pH 7.43 (7.35-7.45) 03/15/19 01:00 ABG pCO2 48 mmHg (35-45) H 03/15/19 01:00 ABG pO2 61 mmHg (83-108) L 03/15/19 01:00 ABG HCO3 32 mmol/L (21-25) H 03/15/19 01:00 ABG Total CO2 33 mmol/L (19-24) H 03/15/19 01:00 ABG O2 Saturation 88.9 % (94-97) L 03/15/19 01:00 ABG Base Excess 7.3 mmol/L 03/15/19 01:00 Manuel Test Yes 03/15/19 01:00 FiO2 36 % 03/15/19 01:00 Sodium 142 mmol/L (137-145) 03/25/19 05:35 Potassium 4.0 mmol/L (3.5-5.1) 03/25/19 05:35 Chloride 102 mmol/L (98-107) 03/25/19 05:35 Carbon Dioxide 28 mmol/L (22-30) 03/25/19 05:35 Anion Gap 12 mmol/L 03/25/19 05:35 BUN 55 mg/dL (9-20) H 03/25/19 05:35 Creatinine 1.71 mg/dL (0.66-1.25) H 03/25/19 05:35 Est GFR (CKD-EPI)AfAm 45 (>60 ml/min/1.73 sqM) 03/25/19 05:35 Est GFR (CKD-EPI)NonAf 39 (>60 ml/min/1.73 sqM) 03/25/19 05:35 Glucose 113 mg/dL (74-99) H 03/25/19 05:35 POC Glucose (mg/dL) 126 mg/dL (75-99) H 03/25/19 21:24 POC Glu [employer] Service Attendant ID Rachel Davies 03/25/19 21:24 Plasma Lactic Acid [place] 1.2 mmol/L (0.7-2.0) 03/06/19 10:10 Calcium 8.5 mg/dL (8.4-10.2) 03/25/19 05:35 Phosphorus 3.8 mg/dL (2.5-4.5) 03/09/19 04:30 Magnesium 2.8 mg/dL (1.6-2.3) H 03/22/19 05:27 Total Bilirubin 0.9 mg/dL (0.2-1.3) 03/01/19 15:07 AST 116 U/L (17-59) H 03/13/19 05:00 ALT 103 U/L (21-72) H 03/13/19 05:00 Alkaline Phosphatase 166 U/L (38-126) H 03/13/19 05:00 Ammonia <9 umol/L (<30) 03/19/19 06:31 Troponin I 1.080 ng/mL (0.000-0.034) H* 03/02/19 04:09 NT-Pro-B Natriuret Pep 61928 pg/mL 03/01/19 15:07 Total Protein 6.8 g/dL (6.3-8.2) 03/01/19 15:07 Albumin 3.4 g/dL (3.5-5.0) L 03/01/19 15:07 Triglycerides 105 mg/dL (<150) 03/02/19 04:09 Cholesterol 188 mg/dL (<200) 03/02/19 04:09 LDL Cholesterol, Calc 148 mg/dL (0-99) H 03/02/19 04:09 HDL Cholesterol 19 mg/dL (40-60) L 03/02/19 04:09 Vitamin B12 1815.0 pg/mL (200.0-944.0) H 03/19/19 06:31 TSH 4.440 mIU/L (0.465-4.680) 03/19/19 06:31 Urine Color Yellow 03/04/19 23:09 Urine Appearance Clear (Clear) 03/04/19 23:09 Urine pH 5.0 (5.0-8.0) 03/04/19 23:09 Ur Specific [place] 1.013 (1.001-1.035) 03/04/19 23:09 Urine Protein Trace (Negative) H 03/04/19 23:09 Urine Glucose (UA) Negative (Negative) 03/04/19 23:09 Urine Ketones Negative (Negative) 03/04/19 23:09 Urine Blood Negative (Negative) 03/04/19 23:09 Urine Nitrite Negative (Negative) 03/04/19 23:09 Urine Bilirubin Negative (Negative) 03/04/19 23:09 Urine Urobilinogen <2.0 mg/dL (<2.0) 03/04/19 23:09 Ur Leukocyte Esterase Negative (Negative) 03/04/19 23:09 C. difficile (EIA) Intrp Negative (Negative) 03/23/19 12:30 Microbiology 03/24/19 13:25 Urine,Catheterized Urine Culture - Preliminary 03/10/19 12:00 Blood Blood Culture - Final No Growth after 144 hours 03/09/19 09:44 Blood Blood Culture - Final No Growth after 144 hours 03/08/19 08:46 Blood Blood Culture Gram Stain - Final 03/08/19 08:46 Blood Blood Culture - Final Enterococcus faecalis 03/08/19 07:30 Blood Blood Culture Gram Stain - Final 03/08/19 07:30 Blood Blood Culture - Final Enterococcus faecalis 03/04/19 18:31 Blood Blood Culture Gram Stain - Final 03/04/19 18:31 Blood Blood Culture - Final Enterococcus faecalis 03/06/19 09:55 Blood Blood Culture Gram Stain - Final 03/06/19 09:55 Blood Blood Culture - Final Enterococcus faecalis 03/06/19 10:10 Blood Blood Culture Gram Stain - Final 03/06/19 10:10 Blood Blood Culture - Final Enterococcus faecalis 03/06/19 02:42 Blood Blood Culture Gram Stain - Final 03/06/19 02:42 Blood Blood Culture - Final Enterococcus faecalis 03/08/19 07:30 Blood Blood Culture - Final 03/08/19 08:46 Blood Blood Culture - Final 03/06/19 11:12 Sputum Gram Stain - Final 03/06/19 11:12 Sputum Sputum Culture - Final 03/05/19 17:44 Blood Blood Culture Gram Stain - Final 03/05/19 17:44 Blood Blood Culture - Final Enterococcus faecalis 03/06/19 10:10 Blood Blood Culture - Final 03/06/19 09:55 Blood Blood Culture - Final 03/05/19 17:44 Blood Blood Culture - Final 03/06/19 02:42 Blood Blood Culture - Final 03/04/19 18:31 Blood Blood Culture - Final Assessment and Plan (1) Acute on chronic systolic CHF (congestive heart failure) Current Visit: Yes Status: Acute Code(s): I50.23 - ACUTE ON CHRONIC SYSTOLIC (CONGESTIVE) HEART FAILURE SNOMED Code(s): 884247954 (2) Cardiomyopathy Current Visit: Yes Status: Acute Code(s): I42.9 - CARDIOMYOPATHY, UNSPECIFIED SNOMED Code(s): 16375338 (3) Prosthetic valve endocarditis Narrative/Plan: 73-year-old gentleman with aortic valve replacement and prior CABG presented to Hospital and some he in worsening of his ischemic cardiomyopathy. He underwent biventricular ICD implantable pacemaker March 05. The he developed a fever and there are now positive blood cultures. The laboratory has identified enterococcus in the blood cultures. There is no specific other site of infection at this time other than the bacteremia. With aortic valve replacement concerns underlying endocarditis. Consequently antimicrobial therapy is transitioned to ampicillin sulbactam and gentamicin in synergistic dosing dosed by the pharmacy. Aware of his renal insufficiency however until bacteremia clears and there is a definitive alternative cause of the bacteremia would require gentamicin therapy for synergy . Follow blood cultures are requested. The patient has had central line and A- line just placed by the software business analyst. He is receiving fluid resuscitation and vasopressor therapy. 03/09/2019 the patient has had a LISSET performed today which verifies evidence of vegetation on the bioprosthetic aortic valve. The patient has many positive blood cultures. Enterococcus has been isolated. The patient has evidence of gentamicin synergy resistance. Gentamicin was discontinued. With this finding ceftriaxone is added to the Unasyn in attempts for synergy. Follow blood cultures will be obtained. The patient's renal failure is improving. He seemingly more stable. Hopefully he will now start to have evidence of clearance of his bacteremia with the synergistic combination. 03/10/2019 Patient remains intubated sedated and ventilated however is decreased therapy. The patient's itching with Unasyn and Rocephin for the enterococcus endocarditis verified with a LISSET yesterday. Cardiology is following. 03/11/2019 patient has improved and will have further weaning trial tomorrow. The blood cultures are now negative over 48 hours, having a good response to antibiotic therapy. The synergistic therapy is now showing response and will continue for 6 weeks. 03/12/2019 the patient is having some improvement will likely be extubated today. Once the patient has consistently negative blood cultures IV access is required that he may receive his 6 weeks of intravenous antibiotic therapy with Unasyn and Rocephin, there are 2 negative blood cultures at this time. 03/13/2019 the patient has had further improvement of his status. He has now been extubated and doing well on nasal cannula oxygen. Not having significant hypotension. He is showing some ongoing improvement. His enterococcus endocar ditis require 6 weeks of therapy. Likely have IV access placed soon and arrangements for the 6 weeks of ampicillin sulbactam and daptomycin which he is tolerating well. 03/15/2019 patient has had some further improvement of his status. Sitting upright able to eat some breakfast. Shortness of breath is improved. He is still with significant generalized weakness. Appears likely he will be in need of rehabilitation at discharge. 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 He was to have follow-up LISSET arranged in the future. 03/16/2019 reveals the patient to have some further improvement of his status. Showing some response to the current antibiotic therapy of Unasyn and Rocephin. Blood cultures have now cleared and remained with evidence of negative blood cultures. IV access and plans for outpatient intravenous antibiotic therapy are in process. Rehab placement is likely needed. The patient is profoundly weak and has a very complex need of multiple antibiotics which would not be feasible for home. 03/18/2019 the patient has had some further improvement, nursing staff relates that he is eating relatively well. His mentation is still somewhat poor but he is arousable, is able to answer questions although short answers and sometimes with poor quality answer. However he is moving upper and lower extremities upon command. He does have significant generalized weakness. The blood cultures are now negative and have been he has been cleared for PICC line placement by cardiology. Orders are placed today. Hopefully he will transition to the extended care facility to complete his 6 weeks of ampicillin sulbactam with Rocephin. Weekly blood work is requested. He will follow-up in the office in 3 and 6 weeks. 03/25/2019 the patient's status has had some improvement today. His mental status has shown some improvement any easily recognizes his brother and they do have some conversation although the content sometimes is quite poor. He is denying interim difficulties and is denying pain. His shortness of breath is improved. His placement to [facility] she has not occurred and apparently a new f acility is now being investigated. He will maintain on the 6 weeks of antibiotic therapy with Unasyn and Rocephin for his prosthetic valve endocarditis. Should follow with 3 in 6 weeks. Current Visit: Yes Status: Acute Code(s): T82.6XXA - INFECT/INFLM REACTION DUE TO CARDIAC VALVE PROSTHESIS, INIT; I38 - ENDOCARDITIS, VALVE UNSPECIFIED SNOMED Code(s): 132368618
[2019-03-25] MEDS: CLOPIDOGREL 75 MG TAB PO SCH (23:15)
[2019-03-26 02:17] VITALS: RESP 18
[2019-03-26] MEDS: IPRATROPIUM-ALBUTEROL 3 ML NEB INHALATION PRN (05:09)
[2019-03-26 06:34] LABS: Anisocytosis Slight; Basophils % (A) 0 %; Eosinophils # (A) 0.2 k/uL (0-0.7); Eosinophils % (A) 2 %; HGB 11.9 gm/dL (13.0-17.5); Hypochromasia Marked; Lymphocytes # (A) 0.8 k/uL (1.0-4.8); Lymphocytes % (A) 9 %; MCH 29.7 pg (25.0-35.0); MCHC 30.5 g/dL (31.0-37.0); MCV 97.3 fL (80.0-100.0); Macrocytosis Moderate; Mean Platelet Volume 8.1; Monocytes # (A) 0.5 k/uL (0-1.0); Monocytes % (A) 6 %; Neutrophils # (A) 7.5 k/uL (1.3-7.7); Neutrophils % (A) 82 %; Platelet Count 170 k/uL (150-450); Poikilocytosis Slight; RDW 19.6 % (11.5-15.5); WBC 9.1 k/uL (3.8-10.6)
[2019-03-26 06:34] LABS: Glucose,Whole Blood 122 mg/dL (75-99)
[2019-03-26] MEDS: INSULIN ASPART (NovoLOG) 100 UNIT/ML VIAL SQ SCH ×2 (06:35→12:34)
[2019-03-26 06:56] LABS: Calcium 8.3 mg/dL (8.4-10.2); Potassium 3.9 mmol/L (3.5-5.1)
[2019-03-26] MEDS: IPRATROPIUM-ALBUTEROL 3 ML NEB INHALATION SCH ×3 (08:12→15:25)
[2019-03-26] MEDS: PANTOPRAZOLE 40 MG/10 ML VIAL IVP SCH (08:56)
[2019-03-26] MEDS: FUROSEMIDE 40 MG TAB PO SCH (08:56)
[2019-03-26] MEDS: METOPROLOL TARTRATE 50 MG TAB PO SCH (08:56)
[2019-03-26] MEDS: ASPIRIN 81 MG PO SCH (08:56)
[2019-03-26] MEDS: ATORVASTATIN 40 MG TAB PO SCH (08:56)
[2019-03-26] MEDS: AMPICILLIN-SULBACTAM 3 GM in SODIUM CHLORIDE 0.9% 100 ML IVPB SCH (08:56)
[2019-03-26] MEDS: AMIODARONE 200 MG TAB PO SCH (08:57)
[2019-03-26] MEDS: HEPARIN SODIUM,PORCINE 5,000 UNIT/ML 1 ML VIAL SQ SCH (08:57)
[2019-03-26] MEDS: POTASSIUM CHLORIDE ER 20 MEQ TAB.ER PO SCH (08:57)
[2019-03-26] MEDS: NYSTATIN 100,000 UNIT/GM OINT 30 GM TUBE TOPICAL SCH (08:58)
[2019-03-26 10:23] VITALS: BMI 40.7
[2019-03-26 11:50] LABS: Glucose,Whole Blood 122 mg/dL (75-99)
--- NOTE | 2019-03-26 12:16 | P.DS ---
Providers Date of admission: 03/01/19 16:15 Expected date of discharge: 03/26/19 Attending physician: Joesph Qureshi Consults: 03/01/19 16:04 Consult Physician Urgent Consulting Provider: Stefan Velásquez Consult Reason/Comments: [email or web address] Do you want consulting provider notified?: Yes 03/05/19 17:22 Consult Physician Urgent Consulting Provider: Tan Nguyễn Consult Reason/Comments: Positive Blood Culture Do you want consulting provider notified?: Yes 03/06/19 01:59 Consult Physician Urgent Consulting Provider: Deandra Pyle Consult Reason/Comments: Pulmonary/Ventilator Management Do you want consulting provider notified?: Already Contacted 03/06/19 07:56 Consult Physician Urgent Consulting Provider: Vianey Fields Consult Reason/Comments: gregg Do you want consulting provider notified?: Yes 03/10/19 11:16 Consult Physician Urgent Consulting Provider: Cande Vora Consult Reason/Comments: Mechanical valve endocarditis Do you want consulting provider notified?: Yes 03/18/19 10:28 Consult Physician Stat Consulting Provider: Sophy Turpin Consult Reason/Comments: altered mental status Do you want consulting provider notified?: Yes Primary care physician: [facility] Hospital Course: Discharge diagnosis Cardiogenic and septic shock. 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 Status post cardiac catheterization showing patent stents. Shortness of breath due to acute on chronic CHF with systolic dysfunction. Ejection fraction 20-25%. Patient did have elevated BNP and increased leg swelling. Improved now. Acute kidney injury likely due to diuresis. Possible ATN and cardiorenal. Acute Urinary retention. Currently on Diaz catheter. Trial void once patient is ambulatory. Ischemic cardiomyopathy. Status post AICD placement. Possible underlying COPD with extrapulmonary restriction of lung. Paroxysmal atrial fibrillation. Severe Coronary artery disease and history of stent placement recently on September 2018 History of coronary artery bypass graft Hypertension Hyperlipidemia Osteoarthritis Chronic anxiety/PTSD Morbid obesity with BMI 41.5 History of aortic valve replacement due to severe aortic stenosis. History of gout Fatty infiltration of the liver GI and DVT prophylaxis. Hospital course Patient is a 73-year-old male with a known history of coronary artery disease status post CABG, history of PCI and recent cardiac catheterization with stent placement in September , severe coronary disease, chronic CHF with systolic dysfunction ejection fraction 20-25%, COPD possible underlying restrictive lung disease, paroxysmal atrial fibrillation and morbid obesity with BMI 41.5 and other multiple medical problems came to ER with complaints of shortness of breath, worsening for the past 10 days. Patient also having chest pain on and off and felt like tightness of the chest. Patient also says that his heart rate was increasing 100 at home. Patient is supposed to get pacemaker due to tachybradycardia in February 24 2019 but was postponed to 2018. Patient has been sleeping mostly for the past 1 week. Chest x-ray showed borderline cardiomegaly. Unchanged from prior study. EKG showed sinus tachycardia with premature ventricular complexes and left Atrial Enlargement. Troponin 2.37 and 1.49, WBC 13.0 BNP [id number] 03/02/2019 Patient is currently lying in the bed comfortably. Awake alert oriented 3. No complaints of chest pain. Shortness of breath improving. Cardiology is planning for cardiac catheterization tomorrow. 03/03/2019 Patient is currently lying in the bed comfortably. Shortness of breath with ambulation. Patient is otherwise status post cardiac catheterization today showed patent stents and maximal medical therapy was recommended. Patient also has been having nonsustained V. tach and a low ejection fraction. Currently being evaluated for AICD placement. EP was consulted. No complaints of chest pain. Continued on IV Lasix. No nausea vomiting or abdominal pain. No diarrhea or dysuria. Renal function is fairly stable. 03/04/2019 Patient is currently lying in the bed. Shortness of breath with slight improvement. Status post cardiac catheterization and was found have patent stent. Patient does have nonsustained V. tach. Patient was seen by EP for possible biventricular pacemaker implantation with defibrillator. Patient was started on Lasix drip due to acute on chronic CHF with systolic dysfunction. No fever no chills. No cough or sputum production. No other acute overnight issues otherwise. 03/05/2019 Patient is currently lying in the bed comfortable. Denied any complaints of cough or sputum production. Patient was febrile last night. Did have leukocytosis at 15.8 Chest x-ray was done. Chest x-ray showed increasing left lung opacification lingular pneumonia is a primary consideration. Patient was started on antibiotics the form of Zosyn. Patient is currently on oral Lasix. Patient was scheduled for AICD placement. Denied any chest pain. No nausea vomiting or diarrhea. Creatinine level increased to 1.9 today Follow-up CBC and BMP tomorrow. 03/16/2019 Patient remains in the ICU. Is a status post extubation. Currently he is on oxygen nasal cannula 6 L/m with his oxygen saturation at 99%. Rest of vitals show a respiratory rate of 22-25, with tachycardia 108 07/11/2013, rest of vitals stable and patient is afebrile for the last few days. Labs showing resistant leukocytosis at 16.8 K, creatinine stable at 2.0. He has no chest pain, no headache. No change in bowel habits. He remains on Unasyn and ceftriaxone as per infectious disease recommendation, his Lasix was lowered to 40 mg IV daily, and he is off the amiodarone drip and currently is on amiodarone pills at 200 mg twice daily. Patient is able to eat and drink so D5W was stopped. Pain is controlled. 03/17/2019 Patient gives improving, he is awake and oriented, he knows why he is in the hospital. He feels generally weak and still short of breath. He is saturating 78-88% on room air, however patient is non-adherent to his oxygen therapy and he keeps taken off his nasal cannula. His saturation goes up to 97% on 4 L oxygen via high flow cannula. No chest pain. Slightly tachycardic. Blood pressure stable. Still have leukocytosis of 15.9 and creatinine stable at 2.1. Sugar control. Patient remains on Unasyn and ceftriaxone and he will need a PICC line and prolonged antibiotic course. ECF is recommended for patient upon discharge. Also is on Lasix 40 mg twice daily and amiodarone 200 mg twice daily basis metoprolol 75 mg 3 times daily. Pain controlled Discussed with the staff today 03/18/2019 Patient was transported to the select unit at the general medical floor. He is awake and alert, he still short of breath with decreased air entry in both sides, however he denies chest pain, his Kassy to tolerate his diet. His Vitas looks stable. Patient has persistent leukocytosis at 15.9 K, creatinine is 2.3. And sugars controlled. Patient remains on Unasyn and Rocephin per infectious disease team with cardiology and pulmonary team R following closely. 03/19/2019 Family concern that the patient was still not at his baseline mental status and they were asking for neurology evaluation. Neurologist recommended repeat CT of the head, EEG, with lab work including TSH ammonia and vitamin B12. Patient is still short of breath with abdominal distention. He is profoundly weak and yesterday did not participate with physical therapy. Cardiology and infectious disease R following the case closely and they cleared the patient for PICC line as he has negative blood culture on repeat testing. On for him for prolonged antibiotics for 6 weeks. Lap showing persistent leukocytosis of 16.1 K, creatinine 2.4 and sodium 147. Patient is followed closely by pulmonary and renal team. Patient has couple of loose bowel movements. We will order abdominal x-rays 03/20/2019 Patient in the general medical floor, is awake and oriented to place but not to time or person, he answers some questions appropriately and follow commands. He does not look in distress. He denies chest pain or dyspnea. His Vitas looks stable however he still feels a bit tachypneic, his saturating 100% on 2 L oxygen via nasal cannula. He still have mild leukocytosis of 16.1 K creatinine is 2.4, that is from yesterday repeat labs from today showing hypernatremia with sodium 151, patient was started on D5W.. Diaz catheter is in place. PICC line was placed yesterday while I J line was removed. EEG showing no seizure-like activity but rather he has metabolic encephalopathy. Workup of B12, ammonia and TSH/T4 are nonrevealing for his mental status change. Patient is followed closely by several consultants including cardiology, pulmonary, nephrology and urology. Infectious disease help her with managing his antibiotics. Patient will need to ECF for rehab and antibiotic therapy upon discharge 03/21/2019 patient is more awake but still confused, hemodynamically stable but is tachypneic with a breathing rate 20-26.sodium improved to 149, creatinine 2.2, glucose is 155. His been followed by several consultants including pulmonary, most likely patient has metabolic encephalopathy secondary to his his SBE and renal failure with electrolyte abnormality. We'll increase the rate of D5W to 70 mL/h as sodium is 149 03/22/2019 Patient is more oriented to day, however he still somewhat confused. His more drowsy and make up easily to verbal and tactile stimuli and he answers some questions appropriately. Vitals stable. Glucose controlled sodium is 144. Creatinine 2.0. Magnesium 2.8. Patient is being followed by several consultants. Sodium is 144 and so we lowered his D5W to 60 mL/h. He got 1 dose of Lasix. Prognosis remains guarded 03/23/2019 Patient is more awake and oriented today, he is easily answering questions more easily and he remembers he is at [facility] in [place]. However he could not remember what his medical problem and why he was in the hospital. Hemodynamically stable. Sodium skin down to 139 creatinine 1.99. Sugars controlled. Leukocytosis improving down to 11.1 K.we will dc his d5w and encourage oral hydration 03/24/2019 Patient is awake alert and slightly confused compared to yesterday as per his daughter at bedside. Otherwise patient is afebrile. Creatinine slightly increased to 2.08. Patient is awake alert oriented 2. Penicillin complaints of shortness of breath. No cough or congestion. Patient does have generalized weakness. Able to eat slowly. Patient is status post septic shock secondary to infected endocarditis. 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 Diaz catheter is being exchanged today. Anticipate discharge in next 24 hours to rehab for IV antibiotics and PTOT. 03/25/2019 Patient is currently lying in the bed. Less confused compared to yesterday. Saturating well on 2 L oxygen when as a cannula. Patient is having generalized weakness and physical therapy is following. Otherwise patient is being continued on antibiotics in the form of Unasyn for enterococcus infective endocarditis. Diaz catheter was exchanged yesterday. Creatinine level improved to 1.71 today. WBC 11.2 and hemoglobin 12.5. 03/26/2019 Patient is more awake and oriented today. Renal function continues to get better with creatinine level I.68. Otherwise patient is able to tolerate at least 50% of his diet. Will discuss with the patient's family to encourage him to eat better and extra supplementation is advisable. Leg swelling is better. No complaints of fever or chills. No chest pain or shortness of breath. Able to participate in physical therapy. Patient will complete antibiotic course with Unasyn until 04/21/2019. Follow primary care physician and other specialists. Patient is lying in the bed comfortably, no acute distress, awake alert and oriented 2. Mild confusion. But able to complicate slowly. HEENT: Normocephalic. Neck is supple. Pupils reactive. Nostrils clear. Oral cavity is moist. Ears reveal no drainage. Neck reveals no JVD, carotid bruits, or thyromegaly. CHEST EXAMINATION: Trachea is central. Symmetrical expansion. Bibasilar diminished air entry. Lung nolen clear to auscultation and percussion. CARDIAC: Normal S1, S2 with no gallops. No murmurs ABDOMEN: Soft. Obese, distended, Bowel sounds normal. No organomegaly. No abdominal bruits. Extremities: 2+ edema. No clubbing or cyanosis Neurologically awake, alert, oriented x3 with well-coordinated movements. No focal deficits noted Skin: No rash or skin lesions. Psychiatric: Coperative. Musculoskeletal: No joint swelling or deformity. Normal range of motion. Vital Signs 03/26/19 03/26/19 03/26/19 05:10 05:19 08:12 Pulse Rate 96 96 84 03/26/19 03/26/19 08:22 12:09 Pulse Rate 80 84 Total time taken greater than 35 minutes including 18 minutes for counseling and coordination of care. Vital Signs - 24 hr 03/25/19 03/25/19 03/25/19 16:00 16:09 16:20 Temperature 95.1 F L Pulse Rate 62 66 Pulse Rate [ 54 L Pulse Oximetery ] Respiratory 18 Rate Blood Pressure 118/68 [Left Arm] O2 Sat by Pulse 98 Oximetry 03/25/19 03/25/19 03/25/19 20:00 20:54 21:03 Temperature 98.4 F Pulse Rate 72 74 Pulse Rate [ 80 Pulse Oximetery ] Respiratory 17 Rate Blood Pressure 113/78 [Left Arm] O2 Sat by Pulse 98 Oximetry 03/26/19 03/26/19 03/26/19 00:00 03:34 05:10 Temperature Pulse Rate 96 Pulse Rate [ 73 87 Pulse Oximetery ] Respiratory 18 18 Rate Blood Pressure 143/93 154/77 [Left Arm] O2 Sat by Pulse 98 98 Oximetry 03/26/19 03/26/19 03/26/19 05:19 08:12 08:22 Temperature Pulse Rate 96 84 80 Pulse Rate [ Pulse Oximetery ] Respiratory Rate Blood Pressure [Left Arm] O2 Sat by Pulse Oximetry 03/26/19 12:09 Temperature Pulse Rate 84 Pulse Rate [ Pulse Oximetery ] Respiratory Rate Blood Pressure [Left Arm] O2 Sat by Pulse Oximetry Patient Condition at Discharge: Serious Plan - Discharge Summary Discharge Rx Participant: No New Discharge Prescriptions: New Amiodarone [Cordarone] 200 mg PO BID #60 tab Bisacodyl [Dulcolax] 10 mg PO DAILY PRN tablet. PRN Reason: Constipation Potassium Chloride ER [K-Dur 20] 20 meq PO DAILY #30 tab.er.prt Furosemide [Lasix] 40 mg PO DAILY #30 tab Atorvastatin [Lipitor] 40 mg PO DAILY #30 tab Metoprolol Tartrate [Lopressor] 100 mg PO TID #180 tab Nystatin 100,000 Unit/gm Oint [Mycostatin Oint] 1 applic TOPICAL BID applic cefTRIAXone [Rocephin] 2 gm IM Q24H #42 vial Ampicillin-Sulbactam [Unasyn] 3 gm IVPB Q6HR #168 vial Continue Tiotropium [place] [Spiriva] 1 puff INHALATION RT-DAILY Budesonide-Formot 160-4.5 Mcg [Symbicort 160-4.5 Mcg Inhaler] 2 puff INHALATION RT-BID PRN PRN Reason: Dyspnea Albuterol Sulfate [Proair Hfa] 2 puff INHALATION RT-QID PRN PRN Reason: Shortness Of Breath Allopurinol [Zyloprim] 100 mg PO HS PRN PRN Reason: gout Albuterol Nebulized [Ventolin Nebulized] 2.5 mg INHALATION Q4H PRN PRN Reason: sob Omeprazole [PriLOSEC] 40 mg PO AC-BRKFST Aspirin EC [Ecotrin Low Dose] 81 mg PO DAILY Clopidogrel [Plavix] 75 mg PO HS Discontinued Metoprolol Tartrate [Lopressor] 25 mg PO BID #30 tab Lisinopril [Zestril] 5 mg PO HS Pravastatin Sodium [Pravachol] 10 mg PO HS Sildenafil Citrate [Viagra] 100 mg PO DIRECTED PRN PRN Reason: erectile dysfunction Spironolactone [Aldactone] 25 mg PO DAILY #30 tab Furosemide [Lasix] 40 mg PO BID Discharge Medication List Albuterol Sulfate [Proair Hfa] 2 puff INHALATION RT-QID PRN 01/27/16 [History] Budesonide-Formot 160-4.5 Mcg [Symbicort 160-4.5 Mcg Inhaler] 2 puff INHALATION RT-BID PRN 01/27/16 [History] Tiotropium [place] [Spiriva] 1 puff INHALATION RT-DAILY 01/27/16 [History] Allopurinol [Zyloprim] 100 mg PO HS PRN 01/04/17 [History] Albuterol Nebulized [Ventolin Nebulized] 2.5 mg INHALATION Q4H PRN 03/19/17 [History] Omeprazole [PriLOSEC] 40 mg PO AC-BRKFST 03/19/17 [History] Aspirin EC [Ecotrin Low Dose] 81 mg PO DAILY 08/29/18 [History] Clopidogrel [Plavix] 75 mg PO HS 09/19/18 [History] Amiodarone [Cordarone] 200 mg PO BID #60 tab 03/25/19 [Rx] Atorvastatin [Lipitor] 40 mg PO DAILY #30 tab 03/25/19 [Rx] Bisacodyl [Dulcolax] 10 mg PO DAILY PRN tablet.dr 03/25/19 [Rx] Furosemide [Lasix] 40 mg PO DAILY #30 tab 03/25/19 [Rx] Metoprolol Tartrate [Lopressor] 100 mg PO TID #180 tab 03/25/19 [Rx] Nystatin 100,000 Unit/gm Oint [Mycostatin Oint] 1 applic TOPICAL BID applic 03/25/19 [Rx] Potassium Chloride ER [K-Dur 20] 20 meq PO DAILY #30 tab.er.prt 03/25/19 [Rx] Ampicillin-Sulbactam [Unasyn] 3 gm IVPB Q6HR #168 vial 03/26/19 [Rx] cefTRIAXone [Rocephin] 2 gm IM Q24H #42 vial 03/26/19 [Rx] Follow up Appointment(s)/Referral(s): Vianey Fields MD [STAFF PHYSICIAN] - 10 Days Anant Juarez MD [STAFF PHYSICIAN] - 1 Week Tan Nguyễn MD [STAFF PHYSICIAN] - 3 Weeks Deandra Pyle MD [STAFF PHYSICIAN] - 2 Weeks [facility] [Primary Care Provider] - 1-2 days Ambulatory/Diagnostic Orders: Basic Metabolic Panel [LAB.AMB] Location: None Selected C Reactive Protein [LAB.AMB] Location: None Selected Complete Blood Count w/diff [LAB.AMB] Location: None Selected Erythrocyte Sedimentation Rate [LAB.AMB] Location: None Selected Activity/Diet/Wound Care/Special Instructions: pt will need new meds faxed to [place] -[phone] Discharge Disposition: TRANSFER TO SNF/ECF
[2019-03-26 15:23] VITALS: BP 132/74; TEMP 98.7
[2019-03-26 16:07] VITALS: PULSE 87
--- NOTE | 2019-03-26 19:25 | PN ---
PROGRESS NOTE Patient is seen for followup for acute kidney injury. Patient's renal function has been slowly improving. He is maintained on small dose of oral Lasix. Overall, he is doing fair. He has an indwelling Diaz catheter and 24 hour urine output documented at about 1.7 L. PHYSICAL EXAMINATION: On examination today, blood pressure is 132/74, heart rate of 84 per minute, patient is afebrile. Examination of the heart S1, S2. Examination of the lungs, decreased breath sounds at bases. ABDOMEN: Soft, distended. Obese. Examination of lower extremities edema 1+ bilaterally. ICT ANALYST exam shows patient moving all 4 extremities. LABS: Show sodium 141, potassium 3.9, BUN 52, creatinine 1.68. ASSESSMENT: 1. Acute kidney injury, acute tubular necrosis, nonoliguric currently improving. 2. Endocarditis with Enterobacter cloacae and sepsis, now improved. 3. Atrial fibrillation with controlled ventricular response. 4. Volume overload, slowly improving. 5. Hypernatremia associated with free water deficit status post D5W. PLAN: Continue current dose of Lasix. Monitor labs as outpatient if patient is discharged. Need to monitor volume status closely. MMODL / IJN: [id number] /
--- NOTE | 2019-03-26 23:32 | P.PN ---
Subjective Progress Note Date: 03/26/19 This is a 73-year-old male with known history of ischemic cardiomyopathy along with known history of coronary artery disease and previous aortic valve replacement, AVR, and previous coronary artery bypass surgery. He presented on March 01 because of chest pain and found to have non-STEMI. He underwent cardiac catheterization with Dr. Juarez on 03/03 and the patient was found to have patent stent to the distal left mainstem to proximal circumflex, patent BELTRAN to LAD, chronic totally occluded RCA. Recommendations were mainly to maximize medical management. Patient was apparently having runs of V. tach and a consult was added for Dr. Ho. Patient subsequently underwent a biventricular ICD implantation on March 05. Patient was intubated prior to the procedure as apparently he is unable to lay flat for this. He received 700 mL of fluid during procedure. He was extubated last evening for only 3 minutes and was re- intubated. He was given Lasix 40 mg IV push followed by Lasix drip at 10 mg per hour. The Lasix to was discontinued this morning. Patient remains intubated, on sedation and on levo fed. His chest x-ray this morning reveals a right upper lobe pneumonia and probable heart failure. Patient has been running fevers up to 101.6 on evening of 925. White count 20.6, renal function is worsening with a BUN 45 and creatinine 2.6. Urinalysis was clear with nitrate and l eukoesterase negative. Urine output has been on the lower side running about 50 mL per hour or less. Blood culture from 03/04 is group D enterococcus and thus this consult was requested. 03/09/2019 the patient had evidence of isolated enterococcal bacteremia. The case was discussed with cardiology and a LISSET has been performed today which is verified evidence of a vegetation on the bioprosthetic aortic valve. There is no evidence of any ring abscess or of extensive valvular disease. The patient has shown some improvement in that his fever is improved and his leukocytosis is improving. 03/10/2019 patient remains intubated sedated and mechanically ventilated. His oxygen requirements have decreased in with increased dose of beta russell treatment started as some further improvement of his rate and dysrhythmia. He has been seen by cardiovascular surgeon. 03/11/2019 patient had weaning trial not successful to be retried tomorrow. Off of vasopressor therapy and stable. 03/12/2019 patient has had improvement of his status. He is less sedated. He is on CPAP and doing well likely be extubated when he is a bit more awake. 03/13/2019 the patient is extubated sitting upright feeling considerably better able to eat some nutrition. Not having much chest pain shortness of breath is improved. 03/15/2019 Patient has had some further improvement. He is less short of breath. He is without significant discomforts. Able to eat without difficulties. 03/16/2019 reveals the patient has some further improvement. Is more awake and interactive 03/18/2019 the patient has had some further improvement of his status in that he is with less shortness of breath, has required no further vasopressor therapy is responded somewhat well to current interventions. Negative blood cultures have been verified. 03/23/2019 the patient's status has waxed and waned his discharge does continue to be evaluated when he is more stable. Does seem to be having a better day today than prior. He is not having fevers or chills and actually recognizes me by name today. 03/24/2019 patient i s feeling somewhat better. He is denying intermittent troubles. He is awaiting his transfer to rehabilitation to receive his antibiotic therapy as well as attempts to improve his physical condition. 04/21/2019 his ascending of his antibiotics of Unasyn 3 g IV piggyback every 6 hours with Rocephin 2 g daily. Weekly blood work is requested with a CBC with differential, BMP, and an ESR while on antibiotic therapy. 03/25/2019 the patient's status has stabilized. Plans were for his transfer to [place] today. Apparently some difficulty has occurred and he will not be going to [place]. Alternative options are being investigated. The patient's status is discussed with his brother Luca. 03/26/[address] for the patient to transfer to the [facility]. Patient is again with some improvement aeration. Objective - Vital Signs Vital signs: Vital Signs Temp 98.7 F 03/26/19 12:00 Pulse 87 03/26/19 16:00 Resp 18 03/26/19 16:00 BP 132/74 03/26/19 12:00 Pulse Ox 98 03/26/19 12:00 Intake & Output 03/26/19 03/26/19 03/27/19 06:59 18:59 06:59 Intake Total 200 Output Total 500 500 Balance -500 -300 Weight 118 kg 118 kg Intake: Oral 200 Tube Feeding 0 Output: Urine 500 500 Other: Voiding Method Indwelling Catheter Indwelling Catheter # Voids 0 # Bowel Movements 1 ABP, PAP, CO, CI - Last Documented Arterial Blood Pressure 105/93 - Exam Gen: This is a 73-year-old male. He has tolerated extubation well. Not having much shortness of breath. On the exam he has no tenderness over the pacemaker and does not recall it even being there. HEENT: Head is atraumatic, normocephalic. Pupils equal, round. Sclerae is anicteric. Conjunctiva pink. Oral mucous membranes are moist. Appears patient is edentulous. ET and gastric tube are in place orally. NECK: Supple. No JVD. No lymphadenopathy. No thyromegaly. LUNGS: Symmetrical air entry with few expiratory wheezes basilar crackles or bronchial sounds HEART: Regular rate and rhythm. No murmur. There is a dressing over the AICD, left upper chest wall, no drainage. No significant edema around the area. ABDOMEN: Soft. Bowel sounds are present. No masses. No tenderness. No redness under her abdominal fold. Diaz catheter draining clear dmitry urine. EXTREMITIES: Trace bilateral pedal edema. No wounds, no cellulitis noted. D orsalis pedis 1+ bilaterally. NEUROLOGICAL: Mental status improved today, was just having his dinner and was able to recognize me by name. He recognizes his brother by name. He is somewhat of a poor historian but was able to move upper and lower extremities. - Labs CBC & Chem 7: 03/26/19 06:21 03/26/19 06:21 Labs: Abnormal Lab Results - Last 24 Hours (Table) 03/26/19 03/26/19 03/26/19 Range/Units 06:21 06:21 06:33 RBC 4.00 L (4.30-5.90) m/uL Hgb 11.9 L (13.0-17.5) gm/dL MCHC 30.5 L (31.0-37.0) g/dL RDW 19.6 H (11.5-15.5) % Lymphocytes # 0.8 L (1.0-4.8) k/uL BUN 52 H (9-20) mg/dL Creatinine 1.68 H (0.66-1.25) mg/dL Glucose 124 H (74-99) mg/dL POC Glucose (mg/dL) 122 H (75-99) mg/dL Calcium 8.3 L (8.4-10.2) mg/dL 03/26/19 Range/Units 11:45 RBC (4.30-5.90) m/uL Hgb (13.0-17.5) gm/dL MCHC (31.0-37.0) g/dL RDW (11.5-15.5) % Lymphocytes # (1.0-4.8) k/uL BUN (9-20) mg/dL Creatinine (0.66-1.25) mg/dL Glucose (74-99) mg/dL POC Glucose (mg/dL) 122 H (75-99) mg/dL Calcium (8.4-10.2) mg/dL Microbiology - Last 24 Hours (Table) 03/24/19 13:25 Urine Culture - Final Urine,Catheterized Laboratory Results WBC 9.1 k/uL (3.8-10.6) 03/26/19 06:21 RBC 4.00 m/uL (4.30-5.90) L 03/26/19 06:21 Hgb 11.9 gm/dL (13.0-17.5) L 03/26/19 06:21 Hct 39.0 % (39.0-53.0) 03/26/19 06:21 MCV 97.3 fL (80.0-100.0) 03/26/19 06:21 MCH 29.7 pg (25.0-35.0) 03/26/19 06:21 MCHC 30.5 g/dL (31.0-37.0) L 03/26/19 06:21 RDW 19.6 % (11.5-15.5) H 03/26/19 06:21 Plt Count 170 k/uL (150-450) 03/26/19 06:21 Neutrophils % 82 % 03/26/19 06:21 Neutrophils % (Manual) 84 % 03/18/19 05:55 Lymphocytes % 9 % 03/26/19 06:21 Lymphocytes % (Manual) 13 % 03/18/19 05:55 Monocytes % 6 % 03/26/19 06:21 Monocytes % (Manual) 3 % 03/18/19 05:55 Eosinophils % 2 % 03/26/19 06:21 Basophils % 0 % 03/26/19 06:21 Neutrophils # 7.5 k/uL (1.3-7.7) 03/26/19 06:21 Neutrophils # (Manual) 13.36 k/uL (1.3-7.7) H 03/18/19 05:55 Lymphocytes # 0.8 k/uL (1.0-4.8) L 03/26/19 06:21 Lymphocytes # (Manual) 2.07 k/uL (1.0-4.8) 03/18/19 05:55 Monocytes # 0.5 k/uL (0-1.0) 03/26/19 06:21 Monocytes # (Manual) 0.48 k/uL (0-1.0) 03/18/19 05:55 Eosinophils # 0.2 k/uL (0-0.7) 03/26/19 06:21 Basophils # 0.0 k/uL (0-0.2) 03/26/19 06:21 Nucleated RBCs 0 /100 WBC (0-0) 03/18/19 05:55 Manual Slide Review Performed 03/18/19 05:55 Polychromasia Present 03/18/19 05:55 Hypochromasia Marked 03/26/19 06:21 Poikilocytosis Slight 03/26/19 06:21 Anisocytosis Slight 03/26/19 06:21 Anisocytosis (manual) Present 03/18/19 05:55 Macrocytosis Moderate 03/26/19 06:21 PT 11.1 sec (9.0-12.0) 03/10/19 10:35 INR 1.0 (<1.2) 03/10/19 10:35 APTT 53.7 sec (22.0-30.0) H 03/02/19 21:57 Sample Site rbach 03/15/19 01:00 ABG pH 7.43 (7.35-7.45) 03/15/19 01:00 ABG pCO2 48 mmHg (35-45) H 03/15/19 01:00 ABG pO2 61 mmHg (83-108) L 03/15/19 01:00 ABG HCO3 32 mmol/L (21-25) H 03/15/19 01:00 ABG Total CO2 33 mmol/L (19-24) H 03/15/19 01:00 ABG O2 Saturation 88.9 % (94-97) L 03/15/19 01:00 ABG Base Excess 7.3 mmol/L 03/15/19 01:00 Manuel Test Yes 03/15/19 01:00 FiO2 36 % 03/15/19 01:00 Sodium 141 mmol/L (137-145) 03/26/19 06:21 Potassium 3.9 mmol/L (3.5-5.1) 03/26/19 06:21 Chloride 103 mmol/L (98-107) 03/26/19 06:21 Carbon Dioxide 29 mmol/L (22-30) 03/26/19 06:21 Anion Gap 9 mmol/L 03/26/19 06:21 BUN 52 mg/dL (9-20) H 03/26/19 06:21 Creatinine 1.68 mg/dL (0.66-1.25) H 03/26/19 06:21 Est GFR (CKD-EPI)AfAm 46 (>60 ml/min/1.73 sqM) 03/26/19 06:21 Est GFR (CKD-EPI)NonAf 40 (>60 ml/min/1.73 sqM) 03/26/19 06:21 Glucose 124 mg/dL (74-99) H 03/26/19 06:21 POC Glucose (mg/dL) 122 mg/dL (75-99) H 03/26/19 11:45 POC Glu Slip Cover Seamstress CHRIS Chris Gandara 03/26/19 11:45 Plasma Lactic Acid [place] 1.2 mmol/L (0.7-2.0) 03/06/19 10:10 Calcium 8.3 mg/dL (8.4-10.2) L 03/26/19 06:21 Phosphorus 3.8 mg/dL (2.5-4.5) 03/09/19 04:30 Magnesium 2.8 mg/dL (1.6-2.3) H 03/22/19 05:27 Total Bilirubin 0.9 mg/dL (0.2-1.3) 03/01/19 15:07 AST 116 U/L (17-59) H 03/13/19 05:00 ALT 103 U/L (21-72) H 03/13/19 05:00 Alkaline Phosphatase 166 U/L (38-126) H 03/13/19 05:00 Ammonia <9 umol/L (<30) 03/19/19 06:31 Troponin I 1.080 ng/mL (0.000-0.034) H* 03/02/19 04:09 NT-Pro-B Natriuret Pep 46108 pg/mL 03/01/19 15:07 Total Protein 6.8 g/dL (6.3-8.2) 03/01/19 15:07 Albumin 3.4 g/dL (3.5-5.0) L 03/01/19 15:07 Triglycerides 105 mg/dL (<150) 03/02/19 04:09 Cholesterol 188 mg/dL (<200) 03/02/19 04:09 LDL Cholesterol, Calc 148 mg/dL (0-99) H 03/02/19 04:09 HDL Cholesterol 19 mg/dL (40-60) L 03/02/19 04:09 Vitamin B12 1815.0 pg/mL (200.0-944.0) H 03/19/19 06:31 TSH 4.440 mIU/L (0.465-4.680) 03/19/19 06:31 Urine Color Yellow 03/04/19 23:09 Urine Appearance Clear (Clear) 03/04/19 23:09 Urine pH 5.0 (5.0-8.0) 03/04/19 23:09 Ur Specific [place] 1.013 (1.001-1.035) 03/04/19 23:09 Urine Protein Trace (Negative) H 03/04/19 23:09 Urine Glucose (UA) Negative (Negative) 03/04/19 23:09 Urine Ketones Negative (Negative) 03/04/19 23:09 Urine Blood Negative (Negative) 03/04/19 23:09 Urine Nitrite Negative (Negative) 03/04/19 23:09 Urine Bilirubin Negative (Negative) 03/04/19 23:09 Urine Urobilinogen <2.0 mg/dL (<2.0) 03/04/19 23:09 Ur Leukocyte Esterase Negative (Negative) 03/04/19 23:09 C. difficile (EIA) Intrp Negative (Negative) 03/23/19 12:30 Microbiology 03/24/19 13:25 Urine,Catheterized Urine Culture - Final 03/10/19 12:00 Blood Blood Culture - Final No Growth after 144 hours 03/09/19 09:44 Blood Blood Culture - Final No Growth after 144 hours 03/08/19 08:46 Blood Blood Culture Gram Stain - Final 03/08/19 08:46 Blood Blood Culture - Final Enterococcus faecalis 03/08/19 07:30 Blood Blood Culture Gram Stain - Final 03/08/19 07:30 Blood Blood Culture - Final Enterococcus faecalis 03/04/19 18:31 Blood Blood Culture Gram Stain - Final 03/04/19 18:31 Blood Blood Culture - Final Enterococcus faecalis 03/06/19 09:55 Blood Blood Culture Gram Stain - Final 03/06/19 09:55 Blood Blood Culture - Final Enterococcus faecalis 03/06/19 10:10 Blood Blood Culture Gram Stain - Final 03/06/19 10:10 Blood Blood Culture - Final Enterococcus faecalis 03/06/19 02:42 Blood Blood Culture Gram Stain - Final 03/06/19 02:42 Blood Blood Culture - Final Enterococcus faecalis 03/08/19 07:30 Blood Blood Culture - Final 03/08/19 08:46 Blood Blood Culture - Final 03/06/19 11:12 Sputum Gram Stain - Final 03/06/19 11:12 Sputum Sputum Culture - Final 03/05/19 17:44 Blood Blood Culture Gram Stain - Final 03/05/19 17:44 Blood Blood Culture - Final Enterococcus faecalis 03/06/19 10:10 Blood Blood Culture - Final 03/06/19 09:55 Blood Blood Culture - Final 03/05/19 17:44 Blood Blood Culture - Final 03/06/19 02:42 Blood Blood Culture - Final 03/04/19 18:31 Blood Blood Culture - Final Assessment and Plan (1) Acute on chronic systolic CHF (congestive heart failure) Status: Acute Code(s): I50.23 - ACUTE ON CHRONIC SYSTOLIC (CONGESTIVE) HEART FAILURE SNOMED Code(s): 897327368 (2) Cardiomyopathy Status: Acute Code(s): I42.9 - CARDIOMYOPATHY, UNSPECIFIED SNOMED Code(s): 29635387 (3) Prosthetic valve endocarditis Narrative/Plan: 73-year-old gentleman with aortic valve replacement and prior CABG presented to Hospital and some he in worsening of his ischemic cardiomyopathy. He underwent biventricular ICD implantable pacemaker March 05. The he developed a fever and there are now positive blood cultures. The laboratory has identified enterococcus in the blood cultures. There is no specific other site of infection at this time other than the bacteremia. With aortic valve replacement concerns underlying endocarditis. Consequently antimicrobial therapy is transitioned to ampicillin sulbactam and gentamicin in synergistic dosing dosed by the pharmacy. Aware of his renal insufficiency however until bacteremia clears and there is a definitive alternative cause of the bacteremia would require gentamicin therapy for synergy. Follow blood cultures are requested. The patient has had central line and A-line just placed by the commercial truck driver. He is receiving fluid resuscitation and vasopressor therapy. 03/09/2019 the patient has had a LISSET performed today which verifies evidence of vegetation on the bioprosthetic aortic valve. The patient has many positive blood cultures. Enterococcus has been isolated. The patient has evidence of gentamicin synergy resistance. Gentamicin was discontinued. With this finding ceftriaxone is added to the Unasyn in attempts for synergy. Follow blood cultures will be obtained. The patient's renal failure is improving. He seemingly more stable. Hopefully he will now start to have evide nce of clearance of his bacteremia with the synergistic combination. 03/10/2019 Patient remains intubated sedated and ventilated however is decreased therapy. The patient's itching with Unasyn and Rocephin for the enterococcus endocarditis verified with a LISSET yesterday. Cardiology is following. 03/11/2019 patient has improved and will have further weaning trial tomorrow. The blood cultures are now negative over 48 hours, having a good response to antibiotic therapy. The synergistic therapy is now showing response and will continue for 6 weeks. 03/12/2019 the patient is having some improvement will likely be extubated today. Once the patient has consistently negative blood cultures IV access is required that he may receive his 6 weeks of intravenous antibiotic therapy with Unasyn and Rocephin, there are 2 negative blood cultures at this time. 03/13/2019 the patient has had further improvement of his status. He has now been extubated and doing well on nasal cannula oxygen. Not having significant hypotension. He is showing some ongoing improvement. 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 Likely have IV access placed soon and arrangements for the 6 weeks of ampicillin sulbactam and daptomycin which he is tolerating well. 03/15/2019 patient has had some further improvement of his status. Sitting upright able to eat some breakfast. Shortness of breath is improved. He is still with significant generalized weakness. Appears likely he will be in need of rehabilitation at discharge. 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 He was to have follow-up LISSET arranged in the future. 03/16/2019 reveals the patient to have some further improvement of his status. Showing some response to the current antibiotic therapy of Unasyn and Rocephin. Blood cultures have now cleared and remained with evidence of negative blood cultures. IV access and plans for outpatient intravenous antibiotic therapy are in process. Rehab placement is likely needed. The patient is profoundly weak and has a very complex need of multiple antibiotics which would not be feasible for home. 03/18/2019 the patient has had some further improvement, nursing staff relates that he is eating relatively well. His mentation is still somewhat poor but he is arousable, is able to answer questions although short answers and sometimes with poor quality answer. However he is moving upper and lower extremities upon command. He does have significant generalized weakness. The blood cultures are now negative and have been he has been cleared for PICC line placement by cardiology. Orders are placed today. Hopefully he will transition to the [facility] to complete his 6 weeks of ampicillin sulbactam with Rocephin. Weekly blood work is requested. He will follow-up in the office in 3 and 6 weeks. 03/25/2019 the patient's status has had some improvement today. His mental status has shown some improvement any easily recognizes his brother and they do have some conversation although the content sometimes is quite poor. He is denying interim difficulties and is denying pain. His shortness of breath is improved. His placement to [facility] has not occurred and apparently a new facility is now being investigated. He will maintain on the 6 weeks of antibiotic therapy with Unasyn and Rocephin for his prosthetic valve endocarditis. Should follow with 3 in 6 weeks. 03/26/2019 patient is now having some improvement and is being transferred to the [facility] to complete his course of intravenous antibiotic therapy with Unasyn and Rocephin for his prosthetic valve endocarditis with enterococcus. Weekly blood work is requested. He found the office at the 3 and 6 week des. Status: Acute Code(s): T82.6XXA - INFECT/INFLM REACTION DUE TO CARDIAC VALVE PROSTHESIS, INIT; I38 - ENDOCARDITIS, VALVE UNSPECIFIED SNOMED Code(s): 748502821
== END 2019-03-26 17:38 | DRG 222 ==
LOC: EC 14:38 → 3SCARD 16:15 → 2SICU 03-05 21:59 → 3SCARD 03-17 17:47
PROVIDERS: ADMIT Hospitalist; ATTEND Hospitalist
PROC: B2131ZZ Fluoroscopy of Multiple Coronary Artery Bypass Grafts using Low Osmolar Contrast (ICD-10-PCS; 2019-03-03)
PROC: 4A023N7 Measurement of Cardiac Sampling and Pressure, Left Heart, Percutaneous Approach (ICD-10-PCS; 2019-03-03)
PROC: B2111ZZ Fluoroscopy of Multiple Coronary Arteries using Low Osmolar Contrast (ICD-10-PCS; 2019-03-03)
PROC: 5A1955Z Respiratory Ventilation, Greater than 96 Consecutive Hours (ICD-10-PCS; 2019-03-05)
PROC: 02HK3KZ Insertion of Defibrillator Lead into Right Ventricle, Percutaneous Approach (ICD-10-PCS; principal; 2019-03-05 18:38)
PROC: 0JH609Z Insertion of Cardiac Resynchronization Defibrillator Pulse Generator into Chest Subcutaneous Tissue and Fascia, Open Approach (ICD-10-PCS; principal; 2019-03-05 18:38)
PROC: 02H63KZ Insertion of Defibrillator Lead into Right Atrium, Percutaneous Approach (ICD-10-PCS; principal; 2019-03-05 18:38)
PROC: 02H43KZ Insertion of Defibrillator Lead into Coronary Vein, Percutaneous Approach (ICD-10-PCS; principal; 2019-03-05 18:38)
PROC: 05HM33Z Insertion of Infusion Device into Right Internal Jugular Vein, Percutaneous Approach (ICD-10-PCS; 2019-03-09)
PROC: 03HC33Z Insertion of Infusion Device into Left Radial Artery, Percutaneous Approach (ICD-10-PCS; 2019-03-09)
PROC: 02HV33Z Insertion of Infusion Device into Superior Vena Cava, Percutaneous Approach (ICD-10-PCS; 2019-03-19)
DX: I21.4 Non-ST elevation (NSTEMI) myocardial infarction (principal); I50.23 Acute on chronic systolic (congestive) heart failure; T82.6XXA Infection and inflammatory reaction due to cardiac valve prosthesis, initial encounter; N17.0 Acute kidney failure with tubular necrosis; J96.01 Acute respiratory failure with hypoxia; A41.81 Sepsis due to Enterococcus; I33.0 Acute and subacute infective endocarditis; R65.21 Severe sepsis with septic shock; G93.41 Metabolic encephalopathy; R57.0 Cardiogenic shock; Z68.41 Body mass index [BMI] 40.0-44.9, adult; I47.2 Ventricular tachycardia; E87.4 Mixed disorder of acid-base balance; E87.0 Hyperosmolality and hypernatremia; I13.0 Hypertensive heart and chronic kidney disease with heart failure and stage 1 through stage 4 chronic kidney disease, or unspecified chronic kidney disease; J98.11 Atelectasis; I95.81 Postprocedural hypotension; E78.5 Hyperlipidemia, unspecified; M19.90 Unspecified osteoarthritis, unspecified site; E66.01 Morbid (severe) obesity due to excess calories; I25.5 Ischemic cardiomyopathy; I25.10 Atherosclerotic heart disease of native coronary artery without angina pectoris; F41.1 Generalized anxiety disorder; K21.9 Gastro-esophageal reflux disease without esophagitis; Z96.1 Presence of intraocular lens; I49.5 Sick sinus syndrome; F43.10 Post-traumatic stress disorder, unspecified; I08.0 Rheumatic disorders of both mitral and aortic valves; M10.9 Gout, unspecified; I27.20 Pulmonary hypertension, unspecified; I48.0 Paroxysmal atrial fibrillation; E83.41 Hypermagnesemia; E87.5 Hyperkalemia; E87.6 Hypokalemia; K59.00 Constipation, unspecified; I44.7 Left bundle-branch block, unspecified; K42.9 Umbilical hernia without obstruction or gangrene; K76.0 Fatty (change of) liver, not elsewhere classified; N18.9 Chronic kidney disease, unspecified; T50.2X5A Adverse effect of carbonic-anhydrase inhibitors, benzothiadiazides and other diuretics, initial encounter; T50.8X5A Adverse effect of diagnostic agents, initial encounter; Z95.1 Presence of aortocoronary bypass graft; Z90.49 Acquired absence of other specified parts of digestive tract; Z90.89 Acquired absence of other organs; Z98.42 Cataract extraction status, left eye; Z98.41 Cataract extraction status, right eye; Z95.3 Presence of xenogenic heart valve; Z95.0 Presence of cardiac pacemaker; Z87.891 Personal history of nicotine dependence; Z79.82 Long term (current) use of aspirin; Z79.2 Long term (current) use of antibiotics; Z95.5 Presence of coronary angioplasty implant and graft; I25.2 Old myocardial infarction; Z82.49 Family history of ischemic heart disease and other diseases of the circulatory system; Z79.51 Long term (current) use of inhaled steroids; Z79.899 Other long term (current) drug therapy; Z79.4 Long term (current) use of insulin; Z88.1 Allergy status to other antibiotic agents; Z79.02 Long term (current) use of antithrombotics/antiplatelets
CPT/HCPCS: 33225; 33249; 36415; 36573; 36600; 70450; 71045; 71046; 74018; 76770; 80048; 80053; 80061; 81003; 82140; 82607; 82805; 83605; 83735; 83880; 84075; 84100; 84132; 84443; 84450; 84460; 84484; 85025; 85027; 85049; 85610; 85730; 87040; 87070; 87077; 87086; 87186; 87205; 87324; 93005; 93306; 93312; 93320; 93325; 93455; 94002; 94003; 94640; 94760; 94770; 95816; 96361; 96365; 96375; 96376; 99291

== ENCOUNTER 2019-03-28 07:38 | Inpatient (IN) | payer OTHER, MEDICARE ==
[2019-03-28] MEDS ORDERED: FUROSEMIDE 10 MG/ML 4 ML VIAL IV STA (08:02)
[2019-03-28] MEDS ORDERED: IPRATROPIUM-ALBUTEROL 3 ML NEB INHALATION STA (08:02)
[2019-03-28] MEDS ORDERED: MIDAZOLAM 1 MG/ML 5 ML VIAL IV STA (08:04)
[2019-03-28] MEDS ORDERED: SUCCINYLCHOLINE CHLORIDE VIAL 200 MG/10 ML VIAL IV STA (08:04)
[2019-03-28] MEDS ORDERED: PROPOFOL 1,000 MG in EMPTY BAG 1 BAG IV ONE (08:05)
--- NOTE | 2019-03-28 08:22 | ED ---
SOB HPI - General Chief Complaint: Shortness of Breath Stated Complaint: CHF EXACERBATION Time Seen by Provider: 03/28/19 07:38 Source: RN/MD, EMS, RN notes reviewed, old records reviewed Mode of arrival: EMS Limitations: altered mental status - History of Present Illness Initial Comments: Is a 73-year-old male who was transferred from [facility] where he presented initially for nosebleed but was found be in CHF. Patient does have an extensive history of recent cardiogenic and septic shock recent non-STEMI penis have a history of A. fib systolic dysfunction with EF of 20% COPD restrictive lung disease. He was noted at the facility there also have Bruising to his abdomen. He was transferred here for higher level care. Per paramedics patient was given Ativan due to combativeness try to cough is mask. He did maintain oxygenation in route he purely started "gurgling" upon arrival. MD Complaint: shortness of breath - Related Data Home Medications Medication Instructions Recorded Confirmed Albuterol Sulfate [Proair Hfa] 2 puff INHALATION RT-QID PRN 01/27/16 03/01/19 Budesonide-Formot 160-4.5 Mcg 2 puff INHALATION RT-BID PRN 01/27/16 03/01/19 [Symbicort 160-4.5 Mcg Inhaler] Tiotropium [place] [Spiriva] 1 puff INHALATION RT-DAILY 01/27/16 03/01/19 Allopurinol [Zyloprim] 100 mg PO HS PRN 01/04/17 03/01/19 Albuterol Nebulized [Ventolin 2.5 mg INHALATION Q4H PRN 03/19/17 03/01/19 Nebulized] Omeprazole [PriLOSEC] 40 mg PO AC-BRKFST 03/19/17 03/01/19 Aspirin EC [Ecotrin Low Dose] 81 mg PO DAILY 08/29/18 03/01/19 Clopidogrel [Plavix] 75 mg PO HS 09/19/18 03/01/19 Previous Rx's Medication Instructions Recorded Amiodarone [Cordarone] 200 mg PO BID #60 tab 03/25/19 Atorvastatin [Lipitor] 40 mg PO DAILY #30 tab 03/25/19 Bisacodyl [Dulcolax] 10 mg PO DAILY PRN tablet. 03/25/19 Furosemide [Lasix] 40 mg PO DAILY #30 tab 03/25/19 Metoprolol Tartrate [Lopressor] 100 mg PO TID #180 tab 03/25/19 Nystatin 100,000 Unit/gm Oint 1 applic TOPICAL BID applic 03/25/19 [Mycostatin Oint] Potassium Chloride ER [K-Dur 20] 20 meq PO DAILY #30 tab.er.prt 03/25/19 Ampicillin-Sulbactam [Unasyn] 3 gm IVPB Q6HR #168 vial 03/26/19 cefTRIAXone [Rocephin] 2 gm IM Q24H #42 vial 03/26/19 Allergies Allergy/AdvReac Type Severity Reaction Status Date / Time levofloxacin [From Levaquin] AdvReac Unknown Verified 03/01/19 15:17 Review of Systems ROS Statement: Those systems with pertinent positive or pertinent negative responses have been documented in the HPI. ROS Other: All systems not noted in ROS Statement are negative. Limitations: ROS unobtainable due to patients medical condition Past Medical History Past Medical History: Asthma, Coronary Artery Disease (CAD), Chest Pain / Angina, Heart Failure, COPD, GERD/Reflux, Hyperlipidemia, Hypertension, Osteoarthritis (OA) Additional Past Medical History / Comment(s): Artery disease, previous UT, previous history of coronary artery bypass surgery, previous history aortic valve replacement with a bioprosthetic valve, CHF with ejection fraction of 20- 25%, obesity with a BMI of 43, COPD, hypertension, hyperlipidemia, umbilical hernia, previous history of small bowel obstruction with an incarcerated hernia requiring surgical intervention, history of PTSD, generalized anxiety disorder, gout, 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 Past Anesthesia/Blood Transfusion Reactions: No Reported Reaction Date of Last Stent Placement:: 03/22/17 Past Psychological History: Anxiety, PTSD Smoking Status: Former smoker Past Alcohol Use History: None Reported Past Drug Use History: None Reported - Past Family History Father Family Medical History: Myocardial Infarction (UT) Additional Family Medical History / Comment(s): CABG. Father had a UT at the age of 72 yrs. Father at the age of 85 yrs. Mother Family Medical History: Myocardial Infarction (UT) Additional Family Medical History / Comment(s): CABG. Mother had a UT in her 70s. She lived to be 88yrs old. General Exam Limitations: altered mental status, physical limitation Head exam: Present: other (Bilateral nasal rockets for nasal bleeding dry blood on the face and in oral cavity) Eye exam: Present: normal appearance, PERRL, EOMI ENT exam: Present: mucous membranes dry, TM's normal bilaterally, other (As above) Neck exam: Present: normal inspection, other (No stridor JVD or bruits) Respiratory exam: Present: respiratory distress, accessory muscle use, decreased breath sounds (Diminished breath sounds stress and the left with accessory muscle use and evidence of labored respirations) Cardiovascular Exam: Present: tachycardia GI/Abdominal exam: Present: soft, distended, other (Evidence of some bruising noted to the lower abdomen) Rectal exam: Present: deferred ( known etiology) Extremities exam: Present: normal capillary refill, pedal edema. Absent: tenderness Back exam: Present: normal inspection Neurological exam: Present: altered Psychiatric exam: Present: other (Unable to evaluate) Skin exam: Present: warm, dry. Absent: normal color Course Vital Signs 03/28/19 03/28/19 03/28/19 07:45 08:00 08:55 Temperature 96.5 F L Pulse Rate 115 H 89 Respiratory 16 14 Rate Blood Pressure 124/83 95/61 O2 Sat by Pulse 98 99 96 Oximetry 03/28/19 03/28/19 03/28/19 09:00 09:15 09:25 Temperature Pulse Rate 87 89 93 Respiratory 14 14 Rate Blood Pressure 91/64 89/79 O2 Sat by Pulse 96 95 Oximetry - Reevaluation(s) Reevaluation #1: 03/28/19 08:19 Patient was found to be an respiratory distress with appeared to be labored breathing and impending respiratory failure. Intubation was determined to be indicated. Reevaluation #2: 03/28/19 10:05 Did reevaluate the patient multiple occasions pressure is improved I did discuss the case with both Dr. Cloud and Dr. Juárez from Dr. Pyle's service Procedures - Intubation Sedative: Versed Paralytic: Succinylcholine Mg Given: 200 Laryngoscope: fiber optic video scope Size: 3 ET Tube Size: 8 ET Tube Uncuffed: No (Coughed) Tube Secured Depth (cm): 20 Tube Secured Location: lips Tube Placement Confirmation: visualized tube passing through cords Patient Tolerated Procedure: well Intubation Complications: other (Patient was anterior and difficult to pass a 2 with the kaleidoscope I did Assist by direct visualization with a 3 Aguilera blade. Oral suction have been performed prior. Patient did have a malmpaty score of 3) Medical Decision Making - Medical Decision Making Patient will be admitted no family is currently available. - Lab Data Result diagrams: 03/28/19 08:10 03/28/19 08:10 Lab Results 03/28/19 03/28/19 03/28/19 Range/Units 08:10 08:10 08:10 WBC 11.2 H (3.8-10.6) k/uL RBC 4.17 L (4.30-5.90) m/uL Hgb 12.4 L (13.0-17.5) gm/dL Hct 41.1 (39.0-53.0) % MCV 98.6 (80.0-100.0) fL MCH 29.6 (25.0-35.0) pg MCHC 30.0 L (31.0-37.0) g/dL RDW 19.4 H (11.5-15.5) % Plt Count 178 (150-450) k/uL Neutrophils % 91 % Lymphocytes % 5 % Monocytes % 3 % Eosinophils % 0 % Basophils % 1 % Neutrophils # 10.2 H (1.3-7.7) k/uL Lymphocytes # 0.6 L (1.0-4.8) k/uL Monocytes # 0.3 (0-1.0) k/uL Eosinophils # 0.0 (0-0.7) k/uL Basophils # 0.1 (0-0.2) k/uL Hypochromasia Marked Poikilocytosis Slight Anisocytosis Slight Macrocytosis Moderate PT (9.0-12.0) sec INR (<1.2) APTT (22.0-30.0) sec Sample Site ABG pH (7.35-7.45) ABG pCO2 (35-45) mmHg ABG pO2 (83-108) mmHg ABG HCO3 (21-25) mmol/L ABG Total CO2 (19-24) mmol/L ABG O2 Saturation (94-97) % ABG Base Excess mmol/L Manuel Test FiO2 % Sodium 145 (137-145) mmol/L Potassium 5.0 (3.5-5.1) mmol/L Chloride 106 (98-107) mmol/L Carbon Dioxide 27 (22-30) mmol/L Anion Gap 12 mmol/L BUN 60 H (9-20) mg/dL Creatinine 2.12 H (0.66-1.25) mg/dL Est GFR (CKD-EPI)AfAm 35 (>60 ml/min/1.73 sqM) Est GFR (CKD-EPI)NonAf 30 (>60 ml/min/1.73 sqM) Glucose 164 H (74-99) mg/dL Plasma Lactic Acid Villa (0.7-2.0) mmol/L Calcium 8.5 (8.4-10.2) mg/dL Magnesium 2.5 H (1.6-2.3) mg/dL Total Bilirubin 1.0 (0.2-1.3) mg/dL AST 103 H (17-59) U/L ALT 102 H (21-72) U/L Alkaline Phosphatase 273 H (38-126) U/L Creatine Kinase 64 (55-170) U/L Troponin I (0.000-0.034) ng/mL NT-Pro-B Natriuret Pep 81367 pg/mL Total Protein 6.8 (6.3-8.2) g/dL Albumin 3.2 L (3.5-5.0) g/dL 03/28/19 03/28/19 03/28/19 Range/Units 08:10 08:10 08:10 WBC (3.8-10.6) k/uL RBC (4.30-5.90) m/uL Hgb (13.0-17.5) gm/dL Hct (39.0-53.0) % MCV (80.0-100.0) fL MCH (25.0-35.0) pg MCHC (31.0-37.0) g/dL RDW (11.5-15.5) % Plt Count (150-450) k/uL Neutrophils % % Lymphocytes % % Monocytes % % Eosinophils % % Basophils % % Neutrophils # (1.3-7.7) k/uL Lymphocytes # (1.0-4.8) k/uL Monocytes # (0-1.0) k/uL Eosinophils # (0-0.7) k/uL Basophils # (0-0.2) k/uL Hypochromasia Poikilocytosis Anisocytosis Macrocytosis PT 15.9 H (9.0-12.0) sec INR 1.6 H (<1.2) APTT 23.5 (22.0-30.0) sec Sample Site ABG pH (7.35-7.45) ABG pCO2 (35-45) mmHg ABG pO2 (83-108) mmHg ABG HCO3 (21-25) mmol/L ABG Total CO2 (19-24) mmol/L ABG O2 Saturation (94-97) % ABG Base Excess mmol/L Manuel Test FiO2 % Sodium (137-145) mmol/L Potassium (3.5-5.1) mmol/L Chloride (98-107) mmol/L Carbon Dioxide (22-30) mmol/L Anion Gap mmol/L BUN (9-20) mg/dL Creatinine (0.66-1.25) mg/dL Est GFR (CKD-EPI)AfAm (>60 ml/min/1.73 sqM) Est GFR (CKD-EPI)NonAf (>60 ml/min/1.73 sqM) Glucose (74-99) mg/dL Plasma Lactic Acid [place] 2.0 (0.7-2.0) mmol/L Calcium (8.4-10.2) mg/dL Magnesium (1.6-2.3) mg/dL Total Bilirubin (0.2-1.3) mg/dL AST (17-59) U/L ALT (21-72) U/L Alkaline Phosphatase (38-126) U/L Creatine Kinase (55-170) U/L Troponin I 0.049 H* (0.000-0.034) ng/mL NT-Pro-B Natriuret Pep pg/mL Total Protein (6.3-8.2) g/dL Albumin (3.5-5.0) g/dL 03/28/19 Range/Units 08:50 WBC (3.8-10.6) k/uL RBC (4.30-5.90) m/uL Hgb (13.0-17.5) gm/dL Hct (39.0-53.0) % MCV (80.0-100.0) fL MCH (25.0-35.0) pg MCHC (31.0-37.0) g/dL RDW (11.5-15.5) % Plt Count (150-450) k/uL Neutrophils % % Lymphocytes % % Monocytes % % Eosinophils % % Basophils % % Neutrophils # (1.3-7.7) k/uL Lymphocytes # (1.0-4.8) k/uL Monocytes # (0-1.0) k/uL Eosinophils # (0-0.7) k/uL Basophils # (0-0.2) k/uL Hypochromasia Poikilocytosis Anisocytosis Macrocytosis PT (9.0-12.0) sec INR (<1.2) APTT (22.0-30.0) sec Sample Site rrad ABG pH 7.23 L (7.35-7.45) ABG pCO2 66 H (35-45) mmHg ABG pO2 171 H (83-108) mmHg ABG HCO3 27 H (21-25) mmol/L ABG Total CO2 30 H (19-24) mmol/L ABG O2 Saturation 99.6 H (94-97) % ABG Base Excess -0.1 mmol/L Manuel Test Yes FiO2 100 % Sodium (137-145) mmol/L Potassium (3.5-5.1) mmol/L Chloride (98-107) mmol/L Carbon Dioxide (22-30) mmol/L Anion Gap mmol/L BUN (9-20) mg/dL Creatinine (0.66-1.25) mg/dL Est GFR (CKD-EPI)AfAm (>60 ml/min/1.73 sqM) Est GFR (CKD-EPI)NonAf (>60 ml/min/1.73 sqM) Glucose (74-99) mg/dL Plasma Lactic Acid [place] (0.7-2.0) mmol/L Calcium (8.4-10.2) mg/dL Magnesium (1.6-2.3) mg/dL Total Bilirubin (0.2-1.3) mg/dL AST (17-59) U/L ALT (21-72) U/L Alkaline Phosphatase (38-126) U/L Creatine Kinase (55-170) U/L Troponin I (0.000-0.034) ng/mL NT-Pro-B Natriuret Pep pg/mL Total Protein (6.3-8.2) g/dL Albumin (3.5-5.0) g/dL - EKG Data -: EKG Interpreted by Me EKG Comments: Tachycardic rate of 117 with a. Interval 150 QRS duration 150 QT since QTC 380/5:30 right word axis non-specific interventricular conduction block is consistent with that submitted from [facility] - Radiology Data Radiology results: report reviewed (I did review the imaging and reports are is evidence of the endotracheal tube being at 1.7 cm above the yoseph. Evidence of pleural effusion.), image reviewed Critical Care Time Critical Care Time: Yes Critical Care Time: 45 minutes of critical care time which does not include intubation time. This does include initial presentation with history physical labs x-rays multiple reevaluation the patient to responsive therapy review of old charting the initial encounter with the paramedics and information gathering. Documentation of the above. Disposition Clinical Impression: Acute respiratory failure, Systolic congestive heart failure, Pulmonary edema, Renal insufficiency syndrome, Elevated troponin, COPD with exacerbation Disposition: ADMITTED IP TO THIS HOSP Condition: Critical Referrals: [facility],Clinic [Primary Care Provider] - 1-2 days
--- NOTE | 2019-03-28 08:25 | XR ---
EXAMINATION TYPE: XR chest 1V portable DATE OF EXAM: 03/28/2019 HISTORY: Endo tracheal tube placement. REFERENCE: Previous study dated 03/15/2019. FINDINGS: There is a multilead lead pacing device on the left. There is been a midline sternotomy. The patient has been intubated. ET tube tip is approximately 1.7 cm above the yoseph. There is bilateral airspace disease. The heart is enlarged. There is blunting of the left CP angle. I could not exclude a small effusion. IMPRESSION: 1. CONTINUING CHANGES OF CONGESTIVE HEART FAILURE. 2. SLIGHTLY LOW-LYING ET TUBE.
[2019-03-28 08:26] LABS: Anisocytosis Slight; Basophils # (A) 0.1 k/uL (0-0.2); Basophils % (A) 1 %; Eosinophils % (A) 0 %; HCT 41.1 % (39.0-53.0); HGB 12.4 gm/dL (13.0-17.5); Hypochromasia Marked; Lymphocytes # (A) 0.6 k/uL (1.0-4.8); Lymphocytes % (A) 5 %; MCH 29.6 pg (25.0-35.0); MCV 98.6 fL (80.0-100.0); Macrocytosis Moderate; Mean Platelet Volume 8.2; Monocytes # (A) 0.3 k/uL (0-1.0); Monocytes % (A) 3 %; Neutrophils # (A) 10.2 k/uL (1.3-7.7); Neutrophils % (A) 91 %; Platelet Count 178 k/uL (150-450); Poikilocytosis Slight; RBC 4.17 m/uL (4.30-5.90); RDW 19.4 % (11.5-15.5); WBC 11.2 k/uL (3.8-10.6)
[2019-03-28 08:32] LABS: Albumin 3.2 g/dL (3.5-5.0); Calcium 8.5 mg/dL (8.4-10.2); Magnesium 2.5 mg/dL (1.6-2.3); Total Protein 6.8 g/dL (6.3-8.2)
[2019-03-28 08:42] LABS: INR 1.6 (<1.2); Partial Thromboplastin Time 23.5 sec (22.0-30.0); Prothrombin Time 15.9 sec (9.0-12.0)
[2019-03-28] MEDS ORDERED: PROPOFOL 1,000 MG in EMPTY BAG 1 BAG IV SCH (08:45)
[2019-03-28 08:55] LABS: ABG Base Excess -0.1 mmol/L; ABG HCO3 27 mmol/L (21-25); ABG Oxygen Saturation 99.6 % (94-97); ABG PCO2 66 mmHg (35-45); ABG PH 7.23 (7.35-7.45); ABG PO2 171 mmHg (83-108); ABG TCO2 30 mmol/L (19-24); Allen Test Performed? Yes
[2019-03-28] MEDS ORDERED: CHLORHEXIDINE GLUCONATE 15 ML CUP MUCOUS MEM ONE (09:24)
[2019-03-28] MEDS ORDERED: NALOXONE 0.4 MG/ML 1 ML VIAL IV PRN (10:10)
[2019-03-28] MEDS: SODIUM CHLORIDE 0.9% 1,000 ML IV SCH ×3 (10:45→21:45)
[2019-03-28 11:15] LABS: Glucose,Whole Blood 119 mg/dL (75-99)
[2019-03-28] MEDS: IPRATROPIUM-ALBUTEROL 3 ML NEB INHALATION SCH ×4 (11:49→23:29)
[2019-03-28] MEDS ORDERED: AMPICILLIN-SULBACTAM 3 GM VIAL IVPB SCH (12:00)
[2019-03-28] MEDS: methylPREDNISolone SOD SUCCI 125 MG/2 ML VIAL IV SCH ×3 (12:45→23:43)
[2019-03-28] MEDS: AMPICILLIN-SULBACTAM 3 GM in SODIUM CHLORIDE 0.9% 100 ML IVPB SCH ×3 (12:46→23:43)
--- NOTE | 2019-03-28 13:51 | P.CNPUL ---
History of Present Illness Consult date: 03/28/19 Requesting physician: Joesph Qureshi Reason for consult: abnormal CXR/CT Chief complaint: Epistaxis History of present illness: This is a 71-year-old male patient with known history of ischemic cardiomyopathy along with known history of coronary artery disease and previous aortic valve replacement, AVR, and previous coronary artery bypass surgery, who was recently in the hospital between March 01 and 03/26/2019 because of chest pain and non-STEMI. The patient has had previous catheterizations with stenting done in the distal left main as well as the proximal circumflex. He has a chronically totally occluded RCA. As mentioned, the patient was admitted with chest pain or shortness of breath and acute non-STEMI. The patient underwent another cardiac catheterization and the patient was found to have taken stent to the distal left mainstem to proximal circumflex, patent BELTRAN to LAD, chronic totally occluded RCA. His ejection fraction was 20-25% and he had also received biventricular pacing/AICD at that hospitalization. He had a complicated course and had developed endocarditis. He had acute respiratory failure requiring prolonged ventilation. He subsequently recovered and was transferred to a subacute rehabilitation facility. He was brought from that facility to [place] emergency room with ongoing epistaxis. He required packing. During that evaluation he was found to be in congestive heart failure and was transferred here for further treatment. In route he did receive Ativan for some combativeness and intolerant to oxygen mass. Upon arrival here he was obtunded with gurgling and developed agonal respirations requiring intubation in the ER. Arterial blood gases on 100% FiO2 revealed a pO2 of 171, P CO2 66, pH 7.23. White count 11.2. Hemoglobin 12.4. INR 1.6. Sodium 145. Potassium 5.0. BUN 60. Creatinine 2.12. AST 103, ALT 102, alk phos 273. Troponin 0.049. ProBNP 65,100. He is seen now in the intensive care unit. He is on propofol at 15 mcg /kg/m. He remains intubated on the mechanical ventilator with assist control of 14, tidal volume 500, FiO2 50% and a PEEP of 5. Chest x-ray reveals evidence of congestive heart failure. Review of Systems ROS unobtainable: due to endotracheal tube Past Medical History Past Medical History: Asthma, Coronary Artery Disease (CAD), Chest Pain / Angina, Heart Failure, COPD, GERD/Reflux, Hyperlipidemia, Hypertension, Oste oarthritis (OA) Additional Past Medical History / Comment(s): Artery disease, previous [place], previous history of coronary artery bypass surgery, previous history aortic valve replacement with a bioprosthetic valve, CHF with ejection fraction of 20- 25%, obesity with a BMI of 43, COPD, hypertension, hyperlipidemia, umbilical hernia, previous history of small bowel obstruction with an incarcerated hernia requiring surgical intervention, history of PTSD, generalized anxiety disorder, gout, 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 Past Anesthesia/Blood Transfusion Reactions: No Reported Reaction Date of Last Stent Placement:: 03/22/17 Past Psychological History: Anxiety, PTSD Smoking Status: Former smoker Past Alcohol Use History: None Reported Past Drug Use History: None Reported - Past Family History Father Family Medical History: Myocardial Infarction ([place]) Additional Family Medical History / Comment(s): CABG. Father had a [place] at the age of 72 yrs. Father at the age of 85 yrs. Mother Family Medical History: Myocardial Infarction ([place]) Additional Family Medical History / Comment(s): CABG. Mother had a [place] in her 70s. She lived to be 88yrs old. Medications and Allergies Home Medications Medication Instructions Recorded Confirmed Type Albuterol Sulfate [Proair Hfa] 2 puff INHALATION RT-QID PRN 01/27/16 03/01/19 History Budesonide-Formot 160-4.5 Mcg 2 puff INHALATION RT-BID PRN 01/27/16 03/01/19 History [Symbicort 160-4.5 Mcg Inhaler] Tiotropium [place] [Spiriva] 1 puff INHALATION RT-DAILY 01/27/16 03/01/19 History Allopurinol [Zyloprim] 100 mg PO HS PRN 01/04/17 03/01/19 History Albuterol Nebulized [Ventolin 2.5 mg INHALATION Q4H PRN 03/19/17 03/01/19 History Nebulized] Omeprazole [PriLOSEC] 40 mg PO AC-BRKFST 03/19/17 03/01/19 History Aspirin EC [Ecotrin Low Dose] 81 mg PO DAILY 08/29/18 03/01/19 History Clopidogrel [Plavix] 75 mg PO HS 09/19/18 03/01/19 History Amiodarone [Cordarone] 200 mg PO BID #60 tab 03/25/19 Rx Atorvastatin [Lipitor] 40 mg PO DAILY #30 tab 03/25/19 Rx Bisacodyl [Dulcolax] 10 mg PO DAILY PRN tablet.dr 03/25/19 Rx Furosemide [Lasix] 40 mg PO DAILY #30 tab 03/25/19 Rx Metoprolol Tartrate [Lopressor] 100 mg PO TID #180 tab 03/25/19 Rx Nystatin 100,000 Unit/gm Oint 1 applic TOPICAL BID applic 03/25/19 Rx [Mycostatin Oint] Potassium Chloride ER [K-Dur 20] 20 meq PO DAILY #30 tab.er.prt 03/25/19 Rx Ampicillin-Sulbactam [Unasyn] 3 gm IVPB Q6HR #168 vial 03/26/19 Rx cefTRIAXone [Rocephin] 2 gm IM Q24H #42 vial 03/26/19 Rx Allergies Allergy/AdvReac Type Severity Reaction Status Date / Time levofloxacin [From Levaquin] AdvReac Unknown Verified 03/01/19 15:17 Physical Exam Vitals: Vital Signs Temp Pulse Resp BP Pulse Ox 03/28/19 12:30 75 15 90/61 99 03/28/19 12:06 69 03/28/19 12:00 97.8 F 67 14 99/68 97 03/28/19 11:50 78 03/28/19 11:45 68 14 99/68 98 03/28/19 11:30 79 14 104/90 93 L 03/28/19 10:45 85 14 104/74 95 03/28/19 10:30 79 15 105/72 03/28/19 10:15 89 14 105/70 95 03/28/19 10:00 82 14 103/77 95 03/28/19 09:45 88 14 109/88 95 03/28/19 09:30 88 14 103/64 92 L 03/28/19 09:25 93 03/28/19 09:15 89 14 89/79 95 03/28/19 09:00 87 14 91/64 96 03/28/19 08:55 89 14 95/61 96 03/28/19 08:00 96.5 F L 115 H 16 124/83 99 03/28/19 07:45 98 Intake and Output 03/27/19 03/28/19 03/28/19 22:59 06:59 14:59 Intake Total 254.994 Output Total 440 Balance -185.006 Intake: IV 252 Sodium Chloride 0.9% 1, 252 000 ml @ 126 mls/hr IV . Q7H57M DEANDRA Rx#:[id number] Intake, IV Titration 2.994 Amount Propofol 1,000 mg In 2.994 Empty Bag 1 bag @ Titrate IV .Q0M ONE Rx#: [id number] Output: Urine 440 Other: Weight 130.181 kg GENERAL EXAM: Intubated, sedated 73-year-old gentleman, comfortable in no apparent distress. HEAD: Normocephalic. EYES: Sluggish reaction of pupils, equal size. NOSE: Nasal packing to the right Jj. Nasogastric tube in place.. THROAT: Oral endotracheal tube secured in place. No erythema or exudates. NECK: No masses, no JVD. CHEST: No chest wall deformity. AICD insertion site is clean dry well approximated. Some ecchymosis. LUNGS: Equal air entry with bilateral crackles with few scattered rhonchi. CVS: S1 and S2 normal with audible murmur, regular rhythm. ABDOMEN: No hepatosplenomegaly, normal bowel sounds, no guarding or rigidity. SPINE: No scoliosis or deformity SKIN: Excoriation on the coccyx. CENTRAL NERVOUS SYSTEM: Sedated, tone is normal in all 4 extremities. EXTREMITIES: There is 1-2+ peripheral edema. No clubbing, no cyanosis. Peripheral pulses are intact. Results - Laboratory Findings CBC and BMP: 03/28/19 08:10 03/28/19 08:10 ABG ABG pH 7.23 (7.35-7.45) L 03/28/19 08:50 ABG pCO2 66 mmHg (35-45) H 03/28/19 08:50 ABG pO2 171 mmHg (83-108) H 03/28/19 08:50 ABG O2 Saturation 99.6 % (94-97) H 03/28/19 08:50 PT/INR, D-dimer PT 15.9 sec (9.0-12.0) H 03/28/19 08:10 INR 1.6 (<1.2) H 03/28/19 08:10 Abnormal lab findings: Abnormal Labs 03/28/19 03/28/19 03/28/19 08:10 08:10 08:10 WBC 11.2 H RBC 4.17 L Hgb 12.4 L MCHC 30.0 L RDW 19.4 H Neutrophils # 10.2 H Lymphocytes # 0.6 L PT 15.9 H INR 1.6 H ABG pH ABG pCO2 ABG pO2 ABG HCO3 ABG Total CO2 ABG O2 Saturation BUN 60 H Creatinine 2.12 H Glucose 164 H POC Glucose (mg/dL) Magnesium 2.5 H AST 103 H ALT 102 H Alkaline Phosphatase 273 H Troponin I Albumin 3.2 L 03/28/19 03/28/19 03/28/19 08:10 08:50 11:13 WBC RBC Hgb MCHC RDW Neutrophils # Lymphocytes # PT INR ABG pH 7.23 L ABG pCO2 66 H ABG pO2 171 H ABG HCO3 27 H ABG Total CO2 30 H ABG O2 Saturation 99.6 H BUN Creatinine Glucose POC Glucose (mg/dL) 119 H Magnesium AST ALT Alkaline Phosphatase Troponin I 0.049 H* Albumin - Diagnostic Findings Chest x-ray: image reviewed Assessment and Plan Assessment: Impression: #1 Acute hypoxic respiratory failure secondary to an acute exacerbation of systolic congestive heart failure requiring intubation and mechanical ventilatory support. 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 The patient was quite septic and hemodynamically unstable. He was treated with antibiotics. He required vent support. Patient was extubated successfully on 03/12/2019. Continued with metabolic encephalopathy and transferred to an extended care facility 03/26/2019. 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 the cultures were positive for Enterococcus faecalis and the patient is on IV Unasyn and the repeat blood cultures of been negative from 03/09/2019 and 03/10/2019. #4 Severe LV dysfunction and cardiomyopathy, ischemic in nature, ejection fraction of 20-25% post-insertion of AICD. 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 #7 Elevated liver enzymes #8 Acute kidney injury secondary to sepsis, ATN, current creatinine 2.12. #9 COPD #10 Generalized anxiety disorder #11 Obesity with a BMI of 43 #12 Hypertension #!3 Hyperlipidemia #14 Motor weakness and debility secondary to above #15 Poor overall functional performance based on the above-mentioned multiple comorbidities Plan: The patient was seen and evaluated by Dr. Pyle. He'll remain intubated and sedated for now. Initiate a Lasix drip at 10 mg per hour. DuoNeb inhalations every 4 hours. 0.9 normal saline at KVO for now. Continue Unasyn. Add Pulmicort and Perforomist inhalations. Protonix for GI prophylaxis. Heparin for DVT prophylaxis. Repeat arterial blood gases. Repeat chest x-ray and labs in the a.m. We'll continue to follow and make further recommendations based on his clinical status. I, the cosigning physician, performed a history & physical examination of the patient. Lungs sounds with crackles bilaterally.. Maintaining good O2 saturations in the 90s on 40% FiO2 per mechanical ventilator. I discussed the assessment and plan of care with my nurse practitioner, Lindsey Juárez. I attest to the above consultation as dictated by her. Time with Patient: Greater than 30
[2019-03-28] MEDS: FUROSEMIDE 100 MG in SODIUM CHLORIDE 0.9% 90 ML IV SCH ×2 (14:32→21:36)
[2019-03-28 14:39] LABS: ABG Base Excess 4.7 mmol/L; ABG HCO3 30 mmol/L (21-25); ABG Oxygen Saturation 95.2 % (94-97); ABG PCO2 48 mmHg (35-45); ABG PO2 74 mmHg (83-108); ABG TCO2 31 mmol/L (19-24); Allen Test Performed? Yes
--- NOTE | 2019-03-28 14:49 | P.HPIM ---
History of Present Illness H&P Date: 03/28/19 Chief Complaint: epistaxis 71-year-old male patient with known history of ischemic cardiomyopathy along with known history of coronary artery disease and previous aortic valve replacement, AVR, and previous coronary artery bypass surgery, who was recently in the hospital between March 01 and 03/26/2019 because of chest pain and non-STEMI. The patient has had previous catheterizations with stenting done in the distal left main as well as the proximal circumflex. He has a chronically totally occluded RCA. As mentioned, the patient was admitted with chest pain or shortness of breath and acute non-STEMI. The patient underwent another cardiac catheterization and the patient was found to have taken stent to the distal left mainstem to proximal circumflex, patent BELTRAN to LAD, chronic totally occluded RCA. His ejection fraction was 20-25% and he had also received biventricular pacing/AICD at that hospitalization. He had a complicated course and had developed endocarditis. He had acute respiratory failure requiring prolonged ventilation. He subsequently recovered and was transferred to a subacute rehabilitation facility. He was brought from that facility to [place] emergency room with ongoing epistaxis. He required packing. During that evaluation he was found to be in congestive heart failure and was transferred here for further treatment. In route he did receive Ativan for some combativeness and intolerant to oxygen mass. Upon arrival here he was obtunded with gurgling and developed agonal respirations requiring intubation in the ER. Arterial blood gases on 100% FiO2 revealed a pO2 of 171, P CO2 66, pH 7.23. White count 11.2. Hemoglobin 12.4. INR 1.6. Sodium 145. Potassium 5.0. BUN 60. Creatinine 2.12. AST 103, ALT 102, alk phos 273. Troponin 0.049. ProBNP 65,100. He is seen now in the intensive care unit. He is on propofol at 15 mcg/kg/m. He remains intubated on the mechanical ventilator with assist control of 14, tidal volume 500, FiO2 50% and a PEEP of 5. Chest x-ray reveals evidence of congestive heart failure Review of Systems ROS unobtainable: due to endotracheal tube Past Medical History Past Medical History: Asthma, Coronary Artery Disease (CAD), Chest Pain / Angina, Heart Failure, COPD, GERD/Reflux, Hyperlipidemia, Hypertension, Osteoarthritis (OA) Additional Past Medical History / Comment(s): Artery disease, previous [place], previous history of coronary artery bypass surgery, previous history aortic valve replacement with a bioprosthetic valve, CHF with ejection fraction of 20- 25%, obesity with a BMI of 43, COPD, hypertension, hyperlipidemia, umbilical hernia, previous history of small bowel obstruction with an incarcerated hernia requiring surgical intervention, history of PTSD, generalized anxiety disorder, gout, 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 Past Anesthesia/Blood Transfusion Reactions: No Reported Reaction Date of Last Stent Placement:: 03/22/17 Past Psychological History: Anxiety, PTSD Smoking Status: Former smoker Past Alcohol Use History: None Reported Past Drug Use History: None Reported - Past Family History Father Family Medical History: Myocardial Infarction ([place]) Additional Family Medical History / Comment(s): CABG. Father had a [place] at the age of 72 yrs. Father at the age of 85 yrs. Mother Family Medical History: Myocardial Infarction ([place]) Additional Family Medical History / Comment(s): CABG. Mother had a [place] in her 70s. She lived to be 88yrs old. Medications and Allergies Home Medications Medication Instructions Recorded Confirmed Type Albuterol Sulfate [Proair Hfa] 2 puff INHALATION RT-QID PRN 01/27/16 03/01/19 History Budesonide-Formot 160-4.5 Mcg 2 puff INHALATION RT-BID PRN 01/27/16 03/01/19 History [Symbicort 160-4.5 Mcg Inhaler] Tiotropium [place] [Spiriva] 1 puff INHALATION RT-DAILY 01/27/16 03/01/19 History Allopurinol [Zyloprim] 100 mg PO HS PRN 01/04/17 03/01/19 History Albuterol Nebulized [Ventolin 2.5 mg INHALATION Q4H PRN 03/19/17 03/01/19 History Nebulized] Omeprazole [PriLOSEC] 40 mg PO AC-BRKFST 03/19/17 03/01/19 History Aspirin EC [Ecotrin Low Dose] 81 mg PO DAILY 08/29/18 03/01/19 History Clopidogrel [Plavix] 75 mg PO HS 09/19/18 03/01/19 History Amiodarone [Cordarone] 200 mg PO BID #60 tab 03/25/19 Rx Atorvastatin [Lipitor] 40 mg PO DAILY #30 tab 03/25/19 Rx Bisacodyl [Dulcolax] 10 mg PO DAILY PRN tablet.dr 03/25/19 Rx Furosemide [Lasix] 40 mg PO DAILY #30 tab 03/25/19 Rx Metoprolol Tartrate [Lopressor] 100 mg PO TID #180 tab 03/25/19 Rx Nystatin 100,000 Unit/gm Oint 1 applic TOPICAL BID applic 03/25/19 Rx [Mycostatin Oint] Potassium Chloride ER [K-Dur 20] 20 meq PO DAILY #30 tab.er.prt 03/25/19 Rx Ampicillin-Sulbactam [Unasyn] 3 gm IVPB Q6HR #168 vial 03/26/19 Rx cefTRIAXone [Rocephin] 2 gm IM Q24H #42 vial 03/26/19 Rx Allergies Allergy/AdvReac Type Severity Reaction Status Date / Time levofloxacin [From Levaquin] AdvReac Unknown Verified 03/01/19 15:17 Physical Exam Vitals: Vital Signs Temp Pulse Resp BP Pulse Ox 03/28/19 12:30 75 15 90/61 99 03/28/19 12:06 69 03/28/19 12:00 97.8 F 67 14 99/68 97 03/28/19 11:50 78 03/28/19 11:45 68 14 99/68 98 03/28/19 11:30 79 14 104/90 93 L 03/28/19 10:45 85 14 104/74 95 03/28/19 10:30 79 15 105/72 03/28/19 10:15 89 14 105/70 95 03/28/19 10:00 82 14 103/77 95 03/28/19 09:45 88 14 109/88 95 03/28/19 09:30 88 14 103/64 92 L 03/28/19 09:25 93 03/28/19 09:15 89 14 89/79 95 03/28/19 09:00 87 14 91/64 96 03/28/19 08:55 89 14 95/61 96 03/28/19 08:00 96.5 F L 115 H 16 124/83 99 03/28/19 07:45 98 Intake and Output 03/27/19 03/28/19 03/28/19 22:59 06:59 14:59 Intake Total 254.994 Output Total 440 Balance -185.006 Intake: IV 252 Sodium Chloride 0.9% 1, 252 000 ml @ 126 mls/hr IV . Q7H57M DEANDRA Rx#:[id number] Intake, IV Titration 2.994 Amount Propofol 1,000 mg In 2.994 Empty Bag 1 bag @ Titrate IV .Q0M ONE Rx#: [id number] Output: Urine 440 Other: Weight 130.181 kg GENERAL EXAM: Intubated, sedated 73-year-old gentleman,remains intubated. HEAD: Normocephalic. EYES: Sluggish reaction of pupils, equal size. NOSE: Nasal packing to the right Jj. Nasogastric tube in place.. THROAT: Oral endotracheal tube secured in place. No erythema or exudates. NECK: No masses, no JVD. CHEST: No chest wall deformity. AICD insertion site is clean dry well approximated. Some ecchymosis. LUNGS: Equal air entry with bilateral crackles with few scattered rhonchi. CVS: S1 and S2 normal with audible murmur, regular rhythm. ABDOMEN: No hepatosplenomegaly, normal bowel sounds, no guarding or rigidity. SPINE: No scoliosis or deformity SKIN: Excoriation on the coccyx. CENTRAL NERVOUS SYSTEM: Sedated, tone is normal in all 4 extremities. EXTREMITIES: There is 1-2+ peripheral edema. No clubbing, no cyanosis. Peripheral pulses are intact. Results CBC & Chem 7: 03/28/19 08:10 03/28/19 08:10 Labs: Abnormal Lab Results - Last 24 Hours (Table) 03/28/19 03/28/19 03/28/19 Range/Units 08:10 08:10 08:10 WBC 11.2 H (3.8-10.6) k/uL RBC 4.17 L (4.30-5.90) m/uL Hgb 12.4 L (13.0-17.5) gm/dL MCHC 30.0 L (31.0-37.0) g/dL RDW 19.4 H (11.5-15.5) % Neutrophils # 10.2 H (1.3-7.7) k/uL Lymphocytes # 0.6 L (1.0-4.8) k/uL PT 15.9 H (9.0-12.0) sec INR 1.6 H (<1.2) ABG pH (7.35-7.45) ABG pCO2 (35-45) mmHg ABG pO2 (83-108) mmHg ABG HCO3 (21-25) mmol/L ABG Total CO2 (19-24) mmol/L ABG O2 Saturation (94-97) % BUN 60 H (9-20) mg/dL Creatinine 2.12 H (0.66-1.25) mg/dL Glucose 164 H (74-99) mg/dL POC Glucose (mg/dL) (75-99) mg/dL Magnesium 2.5 H (1.6-2.3) mg/dL AST 103 H (17-59) U/L ALT 102 H (21-72) U/L Alkaline Phosphatase 273 H (38-126) U/L Troponin I (0.000-0.034) ng/mL Albumin 3.2 L (3.5-5.0) g/dL 03/28/19 03/28/19 03/28/19 Range/Units 08:10 08:50 11:13 WBC (3.8-10.6) k/uL RBC (4.30-5.90) m/uL Hgb (13.0-17.5) gm/dL MCHC (31.0-37.0) g/dL RDW (11.5-15.5) % Neutrophils # (1.3-7.7) k/uL Lymphocytes # (1.0-4.8) k/uL PT (9.0-12.0) sec INR (<1.2) ABG pH 7.23 L (7.35-7.45) ABG pCO2 66 H (35-45) mmHg ABG pO2 171 H (83-108) mmHg ABG HCO3 27 H (21-25) mmol/L ABG Total CO2 30 H (19-24) mmol/L ABG O2 Saturation 99.6 H (94-97) % BUN (9-20) mg/dL Creatinine (0.66-1.25) mg/dL Glucose (74-99) mg/dL POC Glucose (mg/dL) 119 H (75-99) mg/dL Magnesium (1.6-2.3) mg/dL AST (17-59) U/L ALT (21-72) U/L Alkaline Phosphatase (38-126) U/L Troponin I 0.049 H* (0.000-0.034) ng/mL Albumin (3.5-5.0) g/dL Assessment and Plan Assessment: 1 Acute hypoxic respiratory failure secondary to an acute exacerbation of systolic congestive heart failure requiring intubation and mechanical venti latory support. 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 The patient was quite septic and hemodynamically unstable. He was treated with antibiotics. He required vent support. Patient was extubated successfully on 03/12/2019. Continued with metabolic encephalopathy and transferred to an extended care facility 03/26/2019. 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 the cultures were positive for Enterococcus faecalis and the patient is on IV Unasyn and the repeat blood cultures of been negative from 03/09/2019 and 03/10/2019. #4 Severe LV dysfunction and cardiomyopathy, ischemic in nature, ejection fraction of 20-25% post-insertion of AICD. 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 #7 Elevated liver enzymes #8 Acute kidney injury secondary to sepsis, ATN, current creatinine 2.12. #9 COPD #10 Generalized anxiety disorder #11 Obesity with a BMI of 43 #12 Hypertension #!3 Hyperlipidemia #14 Motor weakness and debility secondary to above #15 Poor overall functional performance based on the above-mentioned multiple comorbidities
--- NOTE | 2019-03-28 15:08 | XR ---
EXAMINATION TYPE: XR chest 1V portable DATE OF EXAM: 03/28/2019 COMPARISON: 07/29/2018 HISTORY: Check line placement TECHNIQUE: Single frontal view of the chest is obtained. FINDINGS: Endotracheal tube is 3.5 cm from the yoseph. There is left axillary pacemaker. There is na sogastric tube and the tip is well into the stomach. There is right-sided central venous catheter wit h the tip over the right atrium. There is pulmonary vascular congestion. IMPRESSION: Congestive heart failure and pulmonary edema slightly improved compared to exam this altagracia song
[2019-03-28] MEDS ORDERED: FUROSEMIDE 10 MG/ML 4 ML VIAL IV SCH (16:00)
[2019-03-28] MEDS: BUDESONIDE 1 MG/2 ML NEBU INHALATION SCH (19:16)
[2019-03-28] MEDS: FORMOTEROL FUMARATE 20 MCG/2 ML NEBU INHALATION SCH (19:16)
--- NOTE | 2019-03-28 19:50 | PCN ---
PROCEDURE NOTE PROCEDURE PERFORMED: Insertion of arterial line catheter. SITE OF INSERTION: Right radial artery. PREOP DIAGNOSIS: Acute pulmonary edema with secondary respiratory failure. POSTOP DIAGNOSIS: Acute pulmonary edema with secondary respiratory failure. ARTERIAL LINE PLACEMENT: Indications: Hemodynamic monitoring. A time-out was completed verifying correct patient, procedure, site, positioning, and implant(s) or special equipment if applicable. Manuel's test was performed to ensure adequate perfusion. The patient's right groin was prepped and draped in sterile fashion. 1% Lidocaine was used to anesthetize the area. An 18G [place] arterial line was introduced into the radial artery. The catheter was threaded over the guide wire and the needle was removed with appropriate pulsatile blood return. Blood loss was minimal. The catheter was then sutured in place to the skin and a sterile dressing applied. Perfusion to the extremity distal to the point of catheter insertion was checked and found to be adequate. The patient tolerated the procedure well and there were no complications. No bedside complications MMODL / IJN: [id number] /
--- NOTE | 2019-03-28 19:50 | PCN ---
PROCEDURE NOTE PROCEDURE PERFORMED: Insertion of triple-lumen catheter. SITE OF INSERTION: Right subclavian vein. PREOP DIAGNOSES: Acute pulmonary edema. Respiratory failure. POSTOP DIAGNOSES: Acute pulmonary edema. Respiratory failure. TRIPLE LUMEN CATHETER PLACEMENT: Indication Hemodynamic monitoring/Intravenous access. A time-out was completed verifying correct patient, procedure, site, positioning, and implant(s) or special equipment if applicable. The patient was placed in a dependent position appropriate for triple lumen catheter placement based on the vein to be cannulated. The patient's right shoulder was prepped and draped in sterile fashion. 1% Lidocaine was used to anesthetize the surrounding skin area. A triple lumen 9F Cordis catheter was introduced into the subclavian vein using Seldinger technique. The catheter was threaded smoothly over the guide wire and appropriate blood return was obtained. Each lumen of the catheter was evacuated of air and flushed with sterile saline. The catheter was then sutured in place to the skin and a sterile dressing applied. Perfusion to the extremity distal to the point of catheter insertion was checked and found to be adequate. No bedside complications or bleeding. MMODL / IJN: [id number] /
[2019-03-28] MEDS: NOREPINEPHRINE 32 MG in SODIUM CHLORIDE 0.9% 218 ML IV SCH ×2 (19:58→22:08)
[2019-03-28] MEDS: PROPOFOL 1,000 MG in EMPTY BAG 1 BAG IV SCH (21:23)
[2019-03-28] MEDS: HEPARIN SODIUM,PORCINE 5,000 UNIT/ML 1 ML VIAL SQ SCH (21:29)
[2019-03-28 23:38] LABS: Glucose,Whole Blood 140 mg/dL (75-99)
[2019-03-28] MEDS: INSULIN ASPART (NovoLOG) 100 UNIT/ML VIAL SQ SCH (23:43)
[2019-03-29] MEDS: PROPOFOL 1,000 MG in EMPTY BAG 1 BAG IV SCH ×4 (01:18→18:19)
[2019-03-29] MEDS: IPRATROPIUM-ALBUTEROL 3 ML NEB INHALATION SCH ×6 (03:12→23:31)
[2019-03-29 04:22] LABS: ABG Base Excess 4.4 mmol/L; ABG HCO3 29 mmol/L (21-25); ABG Oxygen Saturation 98.5 % (94-97); ABG PCO2 42 mmHg (35-45); ABG PH 7.44 (7.35-7.45); ABG PO2 100 mmHg (83-108); ABG TCO2 30 mmol/L (19-24); Allen Test Performed? Yes
[2019-03-29 06:01] LABS: Glucose,Whole Blood 153 mg/dL (75-99)
[2019-03-29] MEDS: INSULIN ASPART (NovoLOG) 100 UNIT/ML VIAL SQ SCH ×3 (06:01→18:13)
[2019-03-29] MEDS: AMPICILLIN-SULBACTAM 3 GM in SODIUM CHLORIDE 0.9% 100 ML IVPB SCH ×3 (06:01→18:09)
[2019-03-29] MEDS: methylPREDNISolone SOD SUCCI 125 MG/2 ML VIAL IV SCH ×3 (06:01→18:09)
--- NOTE | 2019-03-29 06:03 | XR ---
EXAMINATION TYPE: XR chest 1V portable DATE OF EXAM: 03/29/2019 HISTORY: Intubated. REFERENCE: Previous study dated 03/28/2019. FINDINGS: The patient is ET tube, NG tube and right subclavian catheter remain in place, unchanged in appearance. There is a multilead pacing device present on the left. There has been a midline sternot jesica. The heart is enlarged. There is vascular congestion and pulmonary edema. There is confluent opacity a t the left lung base which may represent confluent edema or pneumonia. There has been little if any c hange in the appearance of the chest. IMPRESSION: NO SIGNIFICANT INTERVAL CHANGE IN THE APPEARANCE OF THE CHEST.
[2019-03-29] MEDS: FUROSEMIDE 100 MG in SODIUM CHLORIDE 0.9% 90 ML IV SCH ×2 (06:16→15:05)
[2019-03-29 06:18] LABS: Anisocytosis Moderate; HGB 10.7 gm/dL (13.0-17.5); Hypochromasia Marked; MCH 29.4 pg (25.0-35.0); MCHC 29.7 g/dL (31.0-37.0); MCV 99.2 fL (80.0-100.0); Macrocytosis Moderate; Mean Platelet Volume 8.8; Platelet Count 133 k/uL (150-450); Poikilocytosis Slight; RBC 3.63 m/uL (4.30-5.90); RDW 20.8 % (11.5-15.5); WBC 9.7 k/uL (3.8-10.6)
[2019-03-29 06:32] LABS: Calcium 7.9 mg/dL (8.4-10.2); Magnesium 2.2 mg/dL (1.6-2.3); Potassium 3.4 mmol/L (3.5-5.1)
[2019-03-29] MEDS: BUDESONIDE 1 MG/2 ML NEBU INHALATION SCH ×2 (07:19→20:31)
[2019-03-29] MEDS: FORMOTEROL FUMARATE 20 MCG/2 ML NEBU INHALATION SCH ×2 (07:19→20:31)
[2019-03-29] MEDS: PANTOPRAZOLE 40 MG/10 ML VIAL IV SCH (08:16)
[2019-03-29] MEDS: HEPARIN SODIUM,PORCINE 5,000 UNIT/ML 1 ML VIAL SQ SCH (08:16)
[2019-03-29] MEDS: CHLORHEXIDINE GLUCONATE 15 ML CUP MUCOUS MEM SCH ×2 (08:23→20:23)
[2019-03-29] MEDS ORDERED: Potassium Replacement Protocol 1 EACH MISC MISCELLANE PRN (08:25)
--- NOTE | 2019-03-29 08:55 | P.PN ---
Subjective Progress Note Date: 03/29/19 This is a 71-year-old male patient with known history of ischemic cardiomyopathy along with known history of coronary artery disease and previous aortic valve replacement, AVR, and previous coronary artery bypass surgery, who was recently in the hospital between March 01 and 03/26/2019 because of chest pain and non-STEMI. The patient has had previous catheterizations with stenting done in the distal left main as well as the proximal circumflex. He has a chronically totally occluded RCA. As mentioned, the patient was admitted with chest pain or shortness of breath and acute non-STEMI. The patient underwent another cardiac catheterization and the patient was found to have taken stent to the distal left mainstem to proximal circumflex, patent BELTRAN to LAD, chronic totally occluded RCA. His ejection fraction was 20-25% and he had also received biventricular pacing/AICD at that hospitalization. He had a complicated course and had developed endocarditis. He had acute respiratory failure requiring prolonged ventilation. He subsequently recovered and was transferred to a subacute rehab ilitation facility. He was brought from that facility to [facility] emergency room with ongoing epistaxis. He required packing. During that evaluation he was found to be in congestive heart failure and was transferred here for further treatment. In route he did receive Ativan for some combativeness and intolerant to oxygen mass. Upon arrival here he was obtunded with gurgling and developed agonal respirations requiring intubation in the ER. Arterial blood gases on 100% FiO2 revealed a pO2 of 171, P CO2 66, pH 7.23. White count 11.2. Hemoglobin 12.4. INR 1.6. Sodium 145. Potassium 5.0. BUN 60. Creatinine 2.12. AST 103, ALT 102, alk phos 273. Troponin 0.049. ProBNP 65,100. He is seen now in the intensive care unit. He is on propofol at 15 mcg/kg/m. He remains intubated on the mechanical ventilator with assist control of 14, tidal volume 500, FiO2 50% and a PEEP of 5. Chest x-ray reveals evidence of congestive heart failure. On today's evaluation of 03/29/2019 I'm seeing this patient for a follow-up. This morning the patient is well sedated and calm and comfortable and he is running on propofol at 10 g per KG per minute. He is going to get a sedation holiday. Meanwhile, the patient is on assist control mode of ventilation. He is currently on assist control of 14 with an FiO2 of 50% with a PEEP of 5 and a tidal volume of 500. The blood gases from this morning shows a pH of 7.44 with a pCO2 of 43 and pO2 100 on the above-mentioned vent setting. Chest x-ray is showing persistent pulmonary edema. The patient is currently on Lasix drip at 10 mg an hour. He is producing excellent urine output in the order of 200 mL an hour. He is in a negative fluid balance. He has extensive edema in the upper and lower extremities bilaterally. His current CVP is running at 12. He is afebrile. He is being treated with Unasyn regarding his ongoing endocarditis. A triple lumen cath was inserted yesterday in the right subclavian and he has a PICC line in his right upper extremity. Repeated blood cultures both central and peripheral will be sent. Otherwise, he is afebrile. He is requiring low- dose pressors for hemodynamic support. He is currently on norepinephrine infusion running at 2 g per minute. His white cell count is at 9.7. Hemoglobin is down slightly down to 10.7. His creatinine is also stable at 1.9. Troponins are slightly elevated. And the patient has a troponin leak. The patient otherwise has been stable overnight and there has been no other significant events. Objective - Vital Signs Vital signs: Vital Signs Temp 97.7 F 03/29/19 08:00 Pulse 87 03/29/19 08:16 Resp 14 03/29/19 08:00 BP 105/85 03/29/19 04:00 Pulse Ox 98 03/29/19 08:00 Intake & Output 03/28/19 03/29/19 03/29/19 18:59 06:59 18:59 Intake Total 524.994 797.508 20 Output Total 1140 1430 75 Balance -615.006 -632.492 -55 Weight 130.181 kg 126.1 kg Intake: IV 522 360 20 Furosemide 100 mg In 30 120 Sodium Chloride 0.9% 90 ml @ 10 MG/HR 10 mls/hr IV .Q10H [facility] Rx#: [id number] Sodium Chloride 0.9% 1, 492 240 20 000 ml @ 126 mls/hr IV . Q7H57M [facility] Rx#:[id number] Intake, IV Titration 2.994 437.508 Amount Ampicillin-Sulbactam 3 gm 100 In Sodium Chloride 0.9% 100 ml @ 200 mls/hr IVPB Q6HR [facility] Rx#:[id number] Furosemide 100 mg In 157.334 Sodium Chloride 0.9% 90 ml @ 10 MG/HR 10 mls/hr IV .Q10H [facility] Rx#: [id number] Propofol 1,000 mg In 2.994 Empty Bag 1 bag @ Titrate IV .Q0M [facility] Rx#: [id number] Propofol 1,000 mg In 180.174 Empty Bag 1 bag @ Titrate IV .Q0M [facility] Rx#: [id number] Output: Urine 1140 1430 75 Other: Voiding Method Indwelling Catheter Indwelling Catheter ABP, PAP, CO, CI - Last Documented Arterial Blood Pressure 119/57 - Exam GENERAL EXAM: Intubated, sedated 73-year-old gentleman, comfortable in no apparent distress. The patient's CVP as measured from the right subclavian triple lumen catheter is at 12. HEAD: Normocephalic. EYES: Sluggish reaction of pupils, equal size. NOSE: Nasal packing to the right Jj. Nasogastric tube in place.. THROAT: Oral endotracheal tube secured in place. No erythema or exudates. NECK: No masses, no JVD. CHEST: No chest wall deformity. AICD insertion site is clean dry well approximated. Some ecchymosis. LUNGS: Equal air entry with bilateral crackles with few scattered rhonchi. CVS: S1 and S2 normal with audible murmur, regular rhythm. ABDOMEN: No hepatosplenomegaly, normal bowel sounds, no guarding or rigidity. SPINE: No scoliosis or deformity SKIN: Excoriation on the coccyx. CENTRAL NERVOUS SYSTEM: Sedated, tone is normal in all 4 extremities. EXTREMITIES: There is 1-2+ peripheral edema. No clubbing, no cyanosis. Peripheral pulses are intact. - Labs CBC & Chem 7: 03/29/19 05:45 03/29/19 05:45 Labs: Abnormal Lab Results - Last 24 Hours (Table) 03/28/19 03/28/19 03/28/19 Range/Units 08:10 08:10 08:50 RBC (4.30-5.90) m/uL Hgb (13.0-17.5) gm/dL Hct (39.0-53.0) % MCHC (31.0-37.0) g/dL RDW (11.5-15.5) % Plt Count (150-450) k/uL PT 15.9 H (9.0-12.0) sec INR 1.6 H (<1.2) ABG pH 7.23 L (7.35-7.45) ABG pCO2 66 H (35-45) mmHg ABG pO2 171 H (83-108) mmHg ABG HCO3 27 H (21-25) mmol/L ABG Total CO2 30 H (19-24) mmol/L ABG O2 Saturation 99.6 H (94-97) % Potassium (3.5-5.1) mmol/L BUN (9-20) mg/dL Creatinine (0.66-1.25) mg/dL Glucose (74-99) mg/dL POC Glucose (mg/dL) (75-99) mg/dL Calcium (8.4-10.2) mg/dL Troponin I 0.049 H* (0.000-0.034) ng/mL 03/28/19 03/28/19 03/28/19 Range/Units 11:13 14:31 21:52 RBC (4.30-5.90) m/uL Hgb (13.0-17.5) gm/dL Hct (39.0-53.0) % MCHC (31.0-37.0) g/dL RDW (11.5-15.5) % Plt Count (150-450) k/uL PT (9.0-12.0) sec INR (<1.2) ABG pH (7.35-7.45) ABG pCO2 48 H (35-45) mmHg ABG pO2 74 L (83-108) mmHg ABG HCO3 30 H (21-25) mmol/L ABG Total CO2 31 H (19-24) mmol/L ABG O2 Saturation (94-97) % Potassium (3.5-5.1) mmol/L BUN (9-20) mg/dL Creatinine (0.66-1.25) mg/dL Glucose (74-99) mg/dL POC Glucose (mg/dL) 119 H (75-99) mg/dL Calcium (8.4-10.2) mg/dL Troponin I 0.051 H* (0.000-0.034) ng/mL 03/28/19 03/29/19 03/29/19 Range/Units 23:36 04:20 05:45 RBC (4.30-5.90) m/uL Hgb (13.0-17.5) gm/dL Hct (39.0-53.0) % MCHC (31.0-37.0) g/dL RDW (11.5-15.5) % Plt Count (150-450) k/uL PT (9.0-12.0) sec INR (<1.2) ABG pH (7.35-7.45) ABG pCO2 (35-45) mmHg ABG pO2 (83-108) mmHg ABG HCO3 29 H (21-25) mmol/L ABG Total CO2 30 H (19-24) mmol/L ABG O2 Saturation 98.5 H (94-97) % Potassium 3.4 L (3.5-5.1) mmol/L BUN 56 H (9-20) mg/dL Creatinine 1.90 H (0.66-1.25) mg/dL Glucose 160 H (74-99) mg/dL POC Glucose (mg/dL) 140 H (75-99) mg/dL Calcium 7.9 L (8.4-10.2) mg/dL Troponin I (0.000-0.034) ng/mL 03/29/19 03/29/19 03/29/19 Range/Units 05:45 05:54 06:05 RBC 3.63 L (4.30-5.90) m/uL Hgb 10.7 L (13.0-17.5) gm/dL Hct 36.0 L (39.0-53.0) % MCHC 29.7 L (31.0-37.0) g/dL RDW 20.8 H (11.5-15.5) % Plt Count 133 L (150-450) k/uL PT (9.0-12.0) sec INR (<1.2) ABG pH (7.35-7.45) ABG pCO2 (35-45) mmHg ABG pO2 (83-108) mmHg ABG HCO3 (21-25) mmol/L ABG Total CO2 (19-24) mmol/L ABG O2 Saturation (94-97) % Potassium (3.5-5.1) mmol/L BUN (9-20) mg/dL Creatinine (0.66-1.25) mg/dL Glucose (74-99) mg/dL POC Glucose (mg/dL) 153 H (75-99) mg/dL Calcium (8.4-10.2) mg/dL Troponin I 0.045 H* (0.000-0.034) ng/mL Microbiology - Last 24 Hours (Table) 03/28/19 09:11 Gram Stain - Preliminary Sputum Sputum Culture - Preliminary Assessment and Plan Plan: #1 Acute hypoxic respiratory failure secondary to an acute exacerbation of systolic congestive heart failure requiring intubation and mechanical ventilatory support. The patient continues to be in acute pulmonary edema. There is bilateral pulmonary infiltrates and ET tube is in a good location patient is currently on Lasix drip. Superimposed pneumonia is felt to be less likely. 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 The patient was quite septic and hemodynamically unstable. He was treated with antibiotics. He required vent support. Patient was extubated successfully on 03/12/2019. Continued with metabolic encephalopathy and transferred to an extended care facility 03/26/2019. 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 the cultures were positive for Enterococcus faecalis and the patient is on IV Unasyn and the repeat blood cultures of been negative from 03/09/2019 and 03/10/2019. #4 Severe LV dysfunction and cardiomyopathy, ischemic in nature, ejection fraction of 20-25% post-insertion of AICD. 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 #7 Elevated liver enzymes #8 Acute kidney injury secondary to sepsis versus cardiorenal factors. Cr eatinine is stable at 1.9 and the patient is nonoliguric producing adequate urine output. #9 COPD #10 Generalized anxiety disorder #11 Obesity with a BMI of 43 #12 Hypertension #!3 Hyperlipidemia #14 Motor weakness and debility secondary to above #15 Poor overall functional performance based on the above-mentioned multiple comorbidities #16 epistaxis, post packing of the right nostril. Plan Keep the patient sedated for today. No plans for extubation or weaning. Continue Lasix drip at 10 mg an hour. Support blood pressure with norepinephrine. Continue Unasyn and add Rocephin per IDs recommendation. Repeat blood cultures. Continue vent support and no vent changes will be done f or today. Initiate enteral feeding for nutritional support via orogastric tube. The patient did express some epistaxis. We'll keep the packing and for another 24 hours and removed by tomorrow. We'll continue supportive care. He will definitely not an echocardiogram to reevaluate the aortic valve make sure there is no acute valve disruption or any other new abnormalities contributing to this acute pulmonary edema. Condition is critical. Prognosis poor based above- mentioned comorbidities. We'll continue to follow. This is a critically care evaluation was done and more than 30 minutes. Time with Patient: Greater than 30
[2019-03-29] MEDS ORDERED: AMIODARONE 200 MG TAB PO SCH (09:00)
[2019-03-29] MEDS ORDERED: METOPROLOL TARTRATE 50 MG TAB PO SCH (09:00)
[2019-03-29] MEDS: ATORVASTATIN 40 MG TAB PO SCH (09:50)
[2019-03-29] MEDS: POTASSIUM BICARBONATE/CIT AC 20 MEQ TABLET.EFF NG-TUBE SCH ×2 (09:53→11:33)
[2019-03-29 11:31] VITALS: BMI 42.3
[2019-03-29 11:39] LABS: Glucose,Whole Blood 154 mg/dL (75-99)
[2019-03-29] MEDS ORDERED: HEPARIN SODIUM,PORCINE 5,000 UNIT/ML 1 ML VIAL IV PRN (12:48)
[2019-03-29] MEDS ORDERED: DEXTROSE 5% IN WATER 100 ML with AMIODARONE 150 MG IV ONE (13:00)
[2019-03-29 13:04] LABS: Anisocytosis Moderate; Basophils % (A) 0 %; Eosinophils % (A) 0 %; HCT 36.9 % (39.0-53.0); HGB 11.1 gm/dL (13.0-17.5); Hypochromasia Marked; Lymphocytes # (A) 0.3 k/uL (1.0-4.8); Lymphocytes % (A) 3 %; MCH 29.8 pg (25.0-35.0); MCHC 30.1 g/dL (31.0-37.0); MCV 98.8 fL (80.0-100.0); Macrocytosis Moderate; Mean Platelet Volume 8.8; Monocytes # (A) 0.4 k/uL (0-1.0); Monocytes % (A) 4 %; Neutrophils % (A) 92 %; Platelet Count 105 k/uL (150-450); Poikilocytosis Slight; RBC 3.74 m/uL (4.30-5.90); RDW 20.9 % (11.5-15.5); WBC 8.8 k/uL (3.8-10.6)
--- NOTE | 2019-03-29 13:06 | P.CRDCN ---
<Chanel Leblanc - Last Filed: 03/29/19 13:03> History of Present Illness History of present illness: This is Chanel Leblanc PA-C dictating a consult on this patient The patient was interviewed and examined by me as well as by Dr. Ho Case discussed with Dr. 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 tach/A. fib Repeat echocardiogram to assess valves Continue diuresis with Lasix drip We'll reinitiate beta russell therapy when blood pressure improves, he is currently requiring pressors HPI Patient is a 73-year-old male with a history of ischemic cardiomyopathy, EF around 20%, CAD status post CABG and recent stenting, valvular heart disease status post aortic valve replacement who is transferred here from [facility]. Last month he was hospitalized with a non-STEMI. His EF was 20-25% and he also had nonsustained V. tach on telemetry so he underwent a biventricular AICD placement. He ended up developing sepsis and endocarditis. LISSET at that time showed an echodensity attached to the LVOT side of the aortic bioprosthetic valve. He had a prolonged stay in the ICU on a ventilator. He was finally transferred to a subacute rehabilitation facility on IV antibiotics. Yesterday, he presented to [facility] with a nosebleed but was found to be in an acute CHF exacerbation and was transferred here. In the emergency department he developed worsening respiratory distress and required sedation. chest x-ray showed small pleural effusion on the left. He has been started on a Lasix drip and is diuresing.Patient seen and examined in the ICU, sedated and intubated. Bedside telemetry reveals atrial tachycardia with RVR, biventricular pacing. He is requiring pressors. ROS: Unable to obtain, patient is sedated and intubated EXAMINATION: Patient is afebrile, pulse 86, respirations 14, blood pressure 112/55, oxygen saturation 97% on mechanical ventilation Patient seen and examined in the ICU, sedated and intubated, nasal packing with dried blood in the right nostril Lungs are diminished with few scattered crackles bilaterally Heart is irregular, systolic murmur noted He has 2+ pitting edema in his lower extremities, mild edema in his upper extremities REVIEW OF LABS, ECG & MEDICAL DATA WBC 9.7, hemoglobin 10.7, platelets 133, potassium 3.4, BUN 56, creatinine 0.9 Troponins 0.045, 0.051, 0.049 Past Medical History Past Medical History: Asthma, Coronary Artery Disease (CAD), Chest Pain / Angina, Heart Failure, COPD, GERD/Reflux, Hyperlipidemia, Hypertension, Osteoarthritis (OA) Additional Past Medical History / Comment(s): Artery disease, previous SC, previous history of coronary artery bypass surgery, previous history aortic valve replacement with a bioprosthetic valve, CHF with ejection fraction of 20- 25%, obesity with a BMI of 43, COPD, hypertension, hyperlipidemia, umbilical hernia, previous history of small bowel obstruction with an incarcerated hernia requiring surgical intervention, history of PTSD, generalized anxiety disorder, gout, 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 Past Anesthesia/Blood Transfusion Reactions: No Reported Reaction Date of Last Stent Placement:: 03/22/17 Past Psychological History: Anxiety, PTSD Smoking Status: Former smoker Past Alcohol Use History: None Reported Past Drug Use History: None Reported - Past Family History Father Family Medical History: Myocardial Infarction (SC) Additional Family Medical History / Comment(s): CABG. Father had a SC at the age of 72 yrs. Father at the age of 85 yrs. Mother Family Medical History: Myocardial Infarction (SC) Additional Family Medical History / Comment(s): CABG. Mother had a SC in her 70s. She lived to be 88yrs old. Medications and Allergies Home Medications Medication Instructions Recorded Confirmed Type Albuterol Sulfate [Proair Hfa] 2 puff INHALATION RT-QID PRN 01/27/16 03/01/19 History Budesonide-Formot 160-4.5 Mcg 2 puff INHALATION RT-BID PRN 01/27/16 03/01/19 History [Symbicort 160-4.5 Mcg Inhaler] Tiotropium [place] [Spiriva] 1 puff INHALATION RT-DAILY 01/27/16 03/01/19 History Allopurinol [Zyloprim] 100 mg PO HS PRN 01/04/17 03/01/19 History Albuterol Nebulized [Ventolin 2.5 mg INHALATION Q4H PRN 03/19/17 03/01/19 History Nebulized] Omeprazole [PriLOSEC] 40 mg PO AC-BRKFST 03/19/17 03/01/19 History Aspirin EC [Ecotrin Low Dose] 81 mg PO DAILY 08/29/18 03/01/19 History Clopidogrel [Plavix] 75 mg PO HS 09/19/18 03/01/19 History Amiodarone [Cordarone] 200 mg PO BID #60 tab 03/25/19 Rx Atorvastatin [Lipitor] 40 mg PO DAILY #30 tab 03/25/19 Rx Bisacodyl [Dulcolax] 10 mg PO DAILY PRN tablet. 03/25/19 Rx Furosemide [Lasix] 40 mg PO DAILY #30 tab 03/25/19 Rx Metoprolol Tartrate [Lopressor] 100 mg PO TID #180 tab 03/25/19 Rx Nystatin 100,000 Unit/gm Oint 1 applic TOPICAL BID applic 03/25/19 Rx [Mycostatin Oint] Potassium Chloride ER [K-Dur 20] 20 meq PO DAILY #30 tab.er.prt 03/25/19 Rx Ampicillin-Sulbactam [Unasyn] 3 gm IVPB Q6HR #168 vial 03/26/19 Rx cefTRIAXone [Rocephin] 2 gm IM Q24H #42 vial 03/26/19 Rx Allergies Allergy/AdvReac Type Severity Reaction Status Date / Time levofloxacin [From [facility]] AdvReac Unknown Verified 03/01/19 15:17 Physical Exam Vitals: Vital Signs Temp Pulse Resp BP Pulse Ox 03/29/19 07:00 77 14 98 03/29/19 06:30 74 15 97 03/29/19 06:00 81 14 96 03/29/19 05:30 80 15 97 03/29/19 05:00 86 14 98 03/29/19 04:30 81 18 98 03/29/19 04:00 97.6 F 85 14 105/85 97 03/29/19 03:30 84 14 97 03/29/19 03:15 76 03/29/19 03:00 87 18 95 03/29/19 02:30 73 16 97 03/29/19 02:00 66 14 97 03/29/19 01:30 70 15 96 03/29/19 01:00 65 14 93/53 96 03/29/19 00:30 68 14 97 03/29/19 00:17 79 14 101/63 97 03/29/19 00:00 98.1 F 74 14 97/59 96 03/28/19 23:49 76 03/28/19 23:30 69 12 89/54 96 03/28/19 23:00 72 14 108/65 94 L 03/28/19 22:30 64 17 95 03/28/19 22:20 71 15 94 L 03/28/19 22:10 78 16 71/51 94 L 03/28/19 22:00 74 18 88/51 94 L 03/28/19 21:00 80 16 96 03/28/19 20:00 98.1 F 69 12 96/61 94 L 03/28/19 19:38 77 03/28/19 19:30 78 14 97 03/28/19 19:28 70 03/28/19 19:26 70 03/28/19 19:16 72 03/28/19 19:00 74 14 96 03/28/19 18:30 68 14 96 03/28/19 18:00 77 14 96 03/28/19 17:30 79 14 96 03/28/19 17:00 78 14 96 03/28/19 16:30 98 14 95 03/28/19 16:00 98.7 F 91 14 97 03/28/19 15:40 89 03/28/19 15:30 92 14 97 03/28/19 15:25 81 03/28/19 15:00 74 14 96 03/28/19 14:30 72 49 H 99/62 92 L 03/28/19 14:00 77 15 92/63 97 03/28/19 13:30 71 14 103/68 98 03/28/19 13:00 73 14 86/59 98 03/28/19 12:30 75 15 90/61 99 03/28/19 12:06 69 03/28/19 12:00 97.8 F 67 14 99/68 97 03/28/19 11:50 78 03/28/19 11:45 68 14 99/68 98 03/28/19 11:30 79 14 104/90 93 L 03/28/19 10:45 85 14 104/74 95 03/28/19 10:30 79 15 105/72 03/28/19 10:15 89 14 105/70 95 03/28/19 10:00 82 14 103/77 95 03/28/19 09:45 88 14 109/88 95 03/28/19 09:30 88 14 103/64 92 L 03/28/19 09:25 93 03/28/19 09:15 89 14 89/79 95 03/28/19 09:00 87 14 91/64 96 03/28/19 08:55 89 14 95/61 96 03/28/19 08:00 96.5 F L 115 H 16 124/83 99 03/28/19 07:45 98 Intake and Output 03/28/19 03/29/19 03/29/19 22:59 06:59 14:59 Intake Total 399.934 587.574 20 Output Total 1180 750 75 Balance -780.066 -162.426 -55 Intake: IV 310 240 20 Furosemide 100 mg In 70 80 Sodium Chloride 0.9% 90 ml @ 10 MG/HR 10 mls/hr IV .Q10H [facility] Rx#: [id number] Sodium Chloride 0.9% 1, 240 160 20 000 ml @ 126 mls/hr IV . Q7H57M [facility] Rx#:[id number] Intake, IV Titration 89.934 347.574 Amount Ampicillin-Sulbactam 3 gm 100 In Sodium Chloride 0.9% 100 ml @ 200 mls/hr IVPB Q6HR [facility] Rx#:[id number] Furosemide 100 mg In 70.667 86.667 Sodium Chloride 0.9% 90 ml @ 10 MG/HR 10 mls/hr IV .Q10H [facility] Rx#: [id number] Propofol 1,000 mg In 19.267 160.907 Empty Bag 1 bag @ Titrate IV .Q0M [facility] Rx#: [id number] Output: Urine 1180 750 75 Other: Voiding Method Indwelling Catheter Indwelling Catheter Weight 126.1 kg ABP, PAP, CO, CI - Last 8 Hours Arterial Blood Pressure 101/49 Arterial Blood Pressure 107/50 Arterial Blood Pressure 111/53 Arterial Blood Pressure 95/49 Arterial Blood Pressure 104/53 Arterial Blood Pressure 103/50 Arterial Blood Pressure 102/52 Arterial Blood Pressure 111/55 Arterial Blood Pressure 112/58 Arterial Blood Pressure 104/54 Arterial Blood Pressure 106/51 Arterial Blood Pressure 99/49 Arterial Blood Pressure 102/48 Arterial Blood Pressure 104/48 Arterial Blood Pressure 103/49 Arterial Blood Pressure 105/51 Arterial Blood Pressure 103/54 Results 03/29/19 05:45 03/29/19 05:45 Cardiac Enzymes 03/28/19 03/28/19 03/28/19 Range/Units 08:10 08:10 21:52 AST 103 H (17-59) U/L Troponin I 0.049 H* 0.051 H* (0.000-0.034) ng/mL 03/29/19 Range/Units 06:05 AST (17-59) U/L Troponin I 0.045 H* (0.000-0.034) ng/mL Coagulation 03/28/19 Range/Units 08:10 PT 15.9 H (9.0-12.0) sec APTT 23.5 (22.0-30.0) sec CBC 03/28/19 03/29/19 Range/Units 08:10 05:45 WBC 11.2 H 9.7 (3.8-10.6) k/uL RBC 4.17 L 3.63 L (4.30-5.90) m/uL Hgb 12.4 L 10.7 L (13.0-17.5) gm/dL Hct 41.1 36.0 L (39.0-53.0) % Plt Count 178 133 L (150-450) k/uL Comprehensive Metabolic Panel 03/28/19 03/29/19 Range/Units 08:10 05:45 Sodium 145 144 (137-145) mmol/L Potassium 5.0 3.4 L (3.5-5.1) mmol/L Chloride 106 107 (98-107) mmol/L Carbon Dioxide 27 28 (22-30) mmol/L BUN 60 H 56 H (9-20) mg/dL Creatinine 2.12 H 1.90 H (0.66-1.25) mg/dL Glucose 164 H 160 H (74-99) mg/dL Calcium 8.5 7.9 L (8.4-10.2) mg/dL AST 103 H (17-59) U/L ALT 102 H (21-72) U/L Alkaline Phosphatase 273 H (38-126) U/L Total Protein 6.8 (6.3-8.2) g/dL Albumin 3.2 L (3.5-5.0) g/dL Current Medications Generic Name Dose Route Start Last Admin Trade Name Freq PRN Reason Stop Dose Admin Albuterol/Ipratropium 3 ml 03/28/19 12:00 03/29/19 03:12 Duoneb 0.5 Mg-3 Mg/3 Ml Soln INHALATION 3 ml RT-Q4H [facility]AN[facility]A Administration Budesonide 1 mg 03/28/19 20:00 03/28/19 19:16 Pulmicort INHALATION 1 mg RT-BID [facility]AN[facility]A Administration Formoterol Fumarate 20 mcg 03/28/19 20:00 03/28/19 19:16 Perforomist INHALATION 20 mcg RT-BID DEANDRA Administration Heparin Sodium (Porcine) 5,000 unit 03/28/19 21:00 03/28/19 21:29 Heparin SQ 5,000 unit Q12HR DEANDRA Administration Hydromorphone HCl 1 mg 03/28/19 10:10 Dilaudid IVP Q2HR PRN Pain Scale 6 to 7 Ampicillin Sodium/Sulbactam 100 mls @ 200 mls/hr 03/28/19 12:00 03/29/19 06:01 Sodium 3 gm/ Sodium Chloride IVPB 200 mls/hr Q6HR [facility]AN[facility]A Administration Propofol 1,000 mg/ IV Solution 100 mls @ 0 mls/hr 03/28/19 11:15 03/29/19 05: 12 IV 30 mcg/kg/min .Q0M [facility]AN[facility]A 23.433 mls/hr Administration Protocol Titrate Furosemide 100 mg/ Sodium 100 mls @ 10 mls/hr 03/28/19 13:30 03/29/19 06:16 Chloride IV 10 mg/hr .Q10H DEANDRA 10 mls/hr Administration 10 MG/HR Norepinephrine Bitartrate 32 250 mls @ 3.051 mls/hr 03/28/19 15:00 03/28/19 22:08 mg/ Sodium Chloride IV 0.05 mcg/kg/min .Q24H [facility]AN[facility]A 3.051 mls/hr Administration Protocol 0.05 MCG/KG/MIN Sodium Chloride 1,000 mls @ 20 mls/hr 03/28/19 21:45 03/28/19 21:45 Saline 0.9% IV 20 mls/hr .Q24H [facility]AN[facility]A Administration Insulin Aspart 0 unit 03/29/19 00:00 03/29/19 06:01 Novolog SQ 1 unit Q6H [facility]ANDRA Administration Protocol Methylprednisolone Sodium Succinate 60 mg 03/28/19 12:00 03/29/19 06:01 Solu-Medrol IV 60 mg Q6HR [facility]AN[facility]A Administration Naloxone HCl 0.2 mg 03/28/19 10:10 Narcan IV Q2M PRN Opioid Reversal Pantoprazole Sodium 40 mg 03/29/19 09:00 Protonix IV DAILY [facility]A Intake and Output 03/28/19 03/29/19 03/29/19 22:59 06:59 14:59 Intake Total 399.934 587.574 20 Output Total 1180 750 75 Balance -780.066 -162.426 -55 Intake: IV 310 240 20 Furosemide 100 mg In 70 80 Sodium Chloride 0.9% 90 ml @ 10 MG/HR 10 mls/hr IV .Q10H [facility] Rx#: [id number] Sodium Chloride 0.9% 1, 240 160 20 000 ml @ 126 mls/hr IV . Q7H57M [facility] Rx#:[id number] Intake, IV Titration 89.934 347.574 Amount Ampicillin-Sulbactam 3 gm 100 In Sodium Chloride 0.9% 100 ml @ 200 mls/hr IVPB Q6HR [facility] Rx#:[id number] Furosemide 100 mg In 70.667 86.667 Sodium Chloride 0.9% 90 ml @ 10 MG/HR 10 mls/hr IV .Q10H [facility] Rx#: [id number] Propofol 1,000 mg In 19.267 160.907 Empty Bag 1 bag @ Titrate IV .Q0M [facility] Rx#: [id number] Output: Urine 1180 750 75 Other: Voiding Method Indwelling Catheter Indwelling Catheter Weight 126.1 kg 03/29/19 05:45 03/29/19 05:45 <Timmy Ho - Last Filed: 03/29/19 13:53> History of Present Illness History of present illness: Patient evaluated Discussed with family and patient's daughter Discussed with Chanel Leblanc Telemetry strips and ECG is reviewed. This represents atrial tachycardia/atrial fibrillation with tracking of the pacemaker My plan is to add amiodarone IV Continue IV Lasix drip Reevaluate in the next 24-48 hours regarding his progress Last time he responded very well to IV Lasix drip Physical Exam Vitals: Vital Signs Temp Pulse Resp BP Pulse Ox 03/29/19 12:15 129 H 16 96 03/29/19 12:00 97.1 F L 128 H 18 95 03/29/19 11:45 128 H 15 95 03/29/19 11:38 108 H 03/29/19 11:30 101 H 15 97 03/29/19 11:22 98 03/29/19 11:15 98 17 96 03/29/19 11:00 91 17 98 03/29/19 10:45 84 14 99 03/29/19 10:30 86 15 99 03/29/19 10:15 89 15 97 03/29/19 10:00 80 17 98 03/29/19 09:45 79 15 97 03/29/19 09:30 87 15 97 03/29/19 09:15 87 14 96 03/29/19 09:00 92 15 97 03/29/19 08:45 96 14 96 03/29/19 08:30 80 14 98 03/29/19 08:16 87 03/29/19 08:15 89 14 98 03/29/19 08:00 97.7 F 81 14 98 03/29/19 07:41 84 03/29/19 07:40 84 03/29/19 07:30 86 14 97 10/20/19 07:23 88 03/29/19 07:00 77 14 98 03/29/19 06:30 74 15 97 03/29/19 06:00 81 14 96 03/29/19 05:30 80 15 97 03/29/19 05:00 86 14 98 03/29/19 04:30 81 18 98 03/29/19 04:00 97.6 F 85 14 105/85 97 03/29/19 03:30 84 14 97 03/29/19 03:15 76 03/29/19 03:00 87 18 95 03/29/19 02:30 73 16 97 03/29/19 02:00 66 14 97 03/29/19 01:30 70 15 96 03/29/19 01:00 65 14 93/53 96 03/29/19 00:30 68 14 97 03/29/19 00:17 79 14 101/63 97 03/29/19 00:00 98.1 F 74 14 97/59 96 03/28/19 23:49 76 03/28/19 23:30 69 12 89/54 96 03/28/19 23:00 72 14 108/65 94 L 03/28/19 22:30 64 17 95 03/28/19 22:20 71 15 94 L 03/28/19 22:10 78 16 71/51 94 L 03/28/19 22:00 74 18 88/51 94 L 03/28/19 21:00 80 16 96 03/28/19 20:00 98.1 F 69 12 96/61 94 L 03/28/19 19:38 77 03/28/19 19:30 78 14 97 03/28/19 19:28 70 03/28/19 19:26 70 03/28/19 19:16 72 03/28/19 19:00 74 14 96 03/28/19 18:30 68 14 96 03/28/19 18:00 77 14 96 03/28/19 17:30 79 14 96 03/28/19 17:00 78 14 96 03/28/19 16:30 98 14 95 03/28/19 16:00 98.7 F 91 14 97 03/28/19 15:40 89 03/28/19 15:30 92 14 97 03/28/19 15:25 81 03/28/19 15:00 74 14 96 03/28/19 14:30 72 49 H 99/62 92 L 03/28/19 14:00 77 15 92/63 97 Intake and Output 03/28/19 03/29/19 03/29/19 22:59 06:59 14:59 Intake Total 399.934 587.574 323.004 Output Total 1180 750 525 Balance -780.066 -162.426 -201.996 Intake: IV 310 240 220 Ampicillin-Sulbactam 3 gm 100 In Sodium Chloride 0.9% 100 ml @ 200 mls/hr IVPB Q6HR [facility] Rx#:[id number] Furosemide 100 mg In 70 80 Sodium Chloride 0.9% 90 ml @ 10 MG/HR 10 mls/hr IV .Q10H [facility] Rx#: [id number] Sodium Chloride 0.9% 1, 240 160 20 000 ml @ 126 mls/hr IV . Q7H57M [facility] Rx#:[id number] Sodium Chloride 0.9% 1, 100 000 ml @ 20 mls/hr IV . Q24H [facility] Rx#:[id number] Intake, IV Titration 89.934 347.574 83.004 Amount Ampicillin-Sulbactam 3 gm 100 In Sodium Chloride 0.9% 100 ml @ 200 mls/hr IVPB Q6HR [facility] Rx#:[id number] Furosemide 100 mg In 70.667 86.667 Sodium Chloride 0.9% 90 ml @ 10 MG/HR 10 mls/hr IV .Q10H [facility] Rx#: [id number] Propofol 1,000 mg In 19.267 160.907 83.004 Empty Bag 1 bag @ Titrate IV .Q0M [facility] Rx#: [id number] Tube Feeding 20 Output: Urine 1180 750 525 Other: Voiding Method Indwelling Catheter Indwelling Catheter Indwelling Catheter Weight 126.1 kg 126.1 kg ABP, PAP, CO, CI - Last 8 Hours Arterial Blood Pressure 113/65 Arterial Blood Pressure 110/63 Arterial Blood Pressure 109/63 Arterial Blood Pressure 107/54 Arterial Blood Pressure 109/58 Arterial Blood Pressure 119/58 Arterial Blood Pressure 113/56 Arterial Blood Pressure 110/57 Arterial Blood Pressure 103/57 Arterial Blood Pressure 102/54 Arterial Blood Pressure 96/47 Arterial Blood Pressure 99/51 Arterial Blood Pressure 113/54 Arterial Blood Pressure 107/56 Arterial Blood Pressure 124/61 Arterial Blood Pressure 114/55 Arterial Blood Pressure 111/54 Arterial Blood Pressure 119/57 Arterial Blood Pressure 112/55 Arterial Blood Pressure 101/49 Arterial Blood Pressure 107/50 Arterial Blood Pressure 111/53 Results 03/29/19 12:55 03/29/19 05:45 Cardiac Enzymes 03/28/19 03/29/19 Range/Units 21:52 06:05 Troponin I 0.051 H* 0.045 H* (0.000-0.034) ng/mL Coagulation 03/29/19 Range/Units 12:55 PT 13.6 H (9.0-12.0) sec APTT 23.8 (22.0-30.0) sec CBC 03/29/19 03/29/19 Range/Units 05:45 12:55 WBC 9.7 8.8 (3.8-10.6) k/uL RBC 3.63 L 3.74 L (4.30-5.90) m/uL Hgb 10.7 L 11.1 L (13.0-17.5) gm/dL Hct 36.0 L 36.9 L (39.0-53.0) % Plt Count 133 L 105 L (150-450) k/uL Comprehensive Metabolic Panel 03/29/19 Range/Units 05:45 Sodium 144 (137-145) mmol/L Potassium 3.4 L (3.5-5.1) mmol/L Chloride 107 (98-107) mmol/L Carbon Dioxide 28 (22-30) mmol/L BUN 56 H (9-20) mg/dL Creatinine 1.90 H (0.66-1.25) mg/dL Glucose 160 H (74-99) mg/dL Calcium 7.9 L (8.4-10.2) mg/dL Current Medications Generic Name Dose Route Start Last Admin Trade Name Freq PRN Reason Stop Dose Admin Albuterol/Ipratropium 3 ml 03/28/19 12:00 03/29/19 11:22 Duoneb 0.5 Mg-3 Mg/3 Ml Soln INHALATION 3 ml RT-Q4H [facility] Administration Atorvastatin Calcium 40 mg 03/29/19 09:00 03/29/19 09:50 Lipitor PO 40 mg DAILY [facility] Administration Budesonide 1 mg 03/28/19 20:00 03/29/19 07:19 Pulmicort INHALATION 1 mg RT-BID [facility] Administration Chlorhexidine Gluconate 15 ml 03/29/19 09:00 03/29/19 08:23 Peridex MUCOUS MEM 15 ml BID [facility]A Administration Clopidogrel Bisulfate 75 mg 03/30/19 09:00 Plavix PO DAILY [facility]A Formoterol Fumarate 20 mcg 03/28/19 20:00 03/29/19 07:19 Perforomist INHALATION 20 mcg RT-BID [facility] Administration Heparin Sodium (Porcine) 0 unit 03/29/19 12:48 Heparin IV PER PROTOCOL PRN Low PTT Protocol Hydromorphone HCl 1 mg 03/28/19 10:10 Dilaudid IVP Q2HR PRN Pain Scale 6 to 7 Ampicillin Sodium/Sulbactam 100 mls @ 200 mls/hr 03/28/19 12:00 03/29/19 11:32 Sodium 3 gm/ Sodium Chloride IVPB 200 mls/hr Q6HR [facility] Administration Propofol 1,000 mg/ IV Solution 100 mls @ 0 mls/hr 03/28/19 11:15 03/29/19 09:15 IV 30 mcg/kg/min .Q0M [facility] 22.698 mls/hr Titration Protocol Titrate Furosemide 100 mg/ Sodium 100 mls @ 10 mls/hr 03/28/19 13:30 03/29/19 06:16 Chloride IV 10 mg/hr .Q10H [facility] 10 mls/hr Administration 10 MG/HR Norepinephrine Bitartrate 32 250 mls @ 3.051 mls/hr 03/28/19 15:00 03/28/19 22:08 mg/ Sodium Chloride IV 0.05 mcg/kg/min .Q24H [facility]A 3.051 mls/hr Administration Protocol 0.05 MCG/KG/MIN Sodium Chloride 1,000 mls @ 20 mls/hr 03/28/19 21:45 03/28/19 21:45 Saline 0.9% IV 20 mls/hr .Q24H [facility] Administration Ceftriaxone Sodium 2 gm/ 50 mls @ 100 mls/hr 03/29/19 09:00 03/29/19 11:32 Sodium Chloride IVPB 100 mls/hr Q24HR [facility]A Administration Amiodarone HCl 150 mg/ 103 mls @ 103 mls/hr 03/29/19 13:00 03/29/19 13:00 Dextrose/Water IV 03/29/19 13:59 103 mls/hr .Q1H ONE Administration Amiodarone HCl 360 mg/ 200 mls @ 33.333 mls/hr 03/29/19 14:00 03/29/19 13:00 Dextrose/Water IV 03/29/19 19:59 1 mg/min .Q6H ONE 33.333 mls/hr Administration Protocol 1 MG/MIN Amiodarone HCl 300 mg/ 250 mls @ 25 mls/hr 03/29/19 20:00 Dextrose/Water IV 03/30/19 13:59 .Q10H [facility]A Protocol 0.5 MG/MIN Heparin Sodium/Sodium Chloride 250 mls @ 9.962 mls/hr 03/29/19 13:00 25,000 unit/ Sodium Chloride IV .Q24H [facility]AN[facility]A Protocol 7.9 UNITS/KG/HR Insulin Aspart 0 unit 03/29/19 00:00 03/29/19 11:37 Novolog SQ 1 unit Q6H [facility]A Administration Protocol Methylprednisolone Sodium Succinate 60 mg 03/28/19 12:00 03/29/19 11:32 Solu-Medrol IV 60 mg Q6HR [facility]A Administration Miscellaneous Information 1 each 03/29/19 08:25 Potassium Per Protocol MISCELLANE DAILY PRN Per Protocol Protocol Naloxone HCl 0.2 mg 03/28/19 10:10 Narcan IV Q2M PRN Opioid Reversal Pantoprazole Sodium 40 mg 03/29/19 09:00 03/29/19 08:16 Protonix IV 40 mg DAILY [facility]A Administration Intake and Output 03/28/19 03/29/19 03/29/19 22:59 06:59 14:59 Intake Total 399.934 587.574 323.004 Output Total 1180 750 525 Balance -780.066 -162.426 -201.996 Intake: IV 310 240 220 Ampicillin-Sulbactam 3 gm 100 In Sodium Chloride 0.9% 100 ml @ 200 mls/hr IVPB Q6HR [facility] Rx#:[id number] Furosemide 100 mg In 70 80 Sodium Chloride 0.9% 90 ml @ 10 MG/HR 10 mls/hr IV .Q10H [facility] Rx#: [id number] Sodium Chloride 0.9% 1, 240 160 20 000 ml @ 126 mls/hr IV . Q7H57M [facility] Rx#:[id number] Sodium Chloride 0.9% 1, 100 000 ml @ 20 mls/hr IV . Q24H [facility] Rx#:[id number] Intake, IV Titration 89.934 347.574 83.004 Amount Ampicillin-Sulbactam 3 gm 100 In Sodium Chloride 0.9% 100 ml @ 200 mls/hr IVPB Q6HR [facility] Rx#:[id number] Furosemide 100 mg In 70.667 86.667 Sodium Chloride 0.9% 90 ml @ 10 MG/HR 10 mls/hr IV .Q10H [facility] Rx#: [id number] Propofol 1,000 mg In 19.267 160.907 83.004 Empty Bag 1 bag @ Titrate IV .Q0M [facility] Rx#: [id number] Tube Feeding 20 Output: Urine 1180 750 525 Other: Voiding Method Indwelling Catheter Indwelling Catheter Indwelling Catheter Weight 126.1 kg 126.1 kg Patient Weight 03/30/19 06:59 Weight 126.1 kg 03/29/19 12:55 03/29/19 05:45
[2019-03-29 13:14] LABS: INR 1.3 (<1.2); Partial Thromboplastin Time 23.8 sec (22.0-30.0); Prothrombin Time 13.6 sec (9.0-12.0)
[2019-03-29] MEDS ORDERED: AMIODARONE 360 MG in DEXTROSE 5% IN WATER 200 ML IV ONE ×2 (14:00)
[2019-03-29] MEDS: HEPARIN SOD,PORK IN 0.45% NACL 25,000 UNIT in 0.45% NACL 1 250ML.BAG IV SCH ×2 (14:00→19:54)
--- NOTE | 2019-03-29 15:33 | ECHOF ---
Referral Reason:r/o vegetation MEASUREMENTS -------- HEIGHT: 172.7 cm WEIGHT: 124.7 kg BP: 101/51 IVSd: 1.1 cm (0.6 - 1.1) LVIDd: 5.5 cm (3.9 - 5.3) LVPWd: 1.2 cm (0.6 - 1.1) IVSs: 1.7 cm LVIDs: 4.4 cm LVPWs: 2.1 cm LA Diam: 3.6 cm (2.7 - 3.8) RVIDd: 3.7 cm (< 3.3) LAESV Index (A-L): 42.56 ml/m Ao Diam: 3.2 cm (2.0 - 3.7) AV maxP.59 mmHg AV meanP.63 mmHg RAP: 15.00 mmHg RVSP: 44.62 mmHg FINDINGS -------- Paced rhythm. This was a technically difficult study with suboptimal views. The left ventricular size is normal. There is borderline concentric left ventricular hypertrophy. Overall left ventricular systolic function is severely impaired with, an EF between 20 - 25 %. The right ventricle is mildly enlarged. LA is severely dilated >40 ml/m2 The right atrium is normal in size. 5.0mg of Lumason was utilized for enhancement of images Peak/mean gradient across the Aortic Valve is 29.59mmHg / 16.63mmHg. Normally functioning bioprosth etic valve. Can not exclude vegetation [id number] mitral regurgitation is present. Mild tricuspid regurgitation present. There is mild pulmonary hypertension. The right ventricular systolic pressure, as measured by Doppler, is 44.62mmHg. Trace/mild (physiologic) pulmonic regurgitation. The aortic root size is normal. The inferior vena cava is dilated with no significant inspiratory collapse which is consistent estima kika right atrial pressure of >15 mmHg. There is no pericardial effusion. CONCLUSIONS -------- 1. Paced rhythm. 2. This was a technically difficult study with suboptimal views. 3. The left ventricular size is normal. 4. There is borderline concentric left ventricular hypertrophy. 5. Overall left ventricular systolic function is severely impaired with, an EF between 20 - 25 %. 6. The right ventricle is mildly enlarged. 7. LA is severely dilated >40 ml/m2 8. The right atrium is normal in size. 9. 5.0mg of Lumason was utilized for enhancement of images 10. Peak/mean gradient across the Aortic Valve is 29.59mmHg / 16.63mmHg. 11. Normally functioning bioprosthetic valve. 12. Can not exclude vegetation 13. Wxwwydmk-[id number] mitral regurgitation is present. 14. Mild tricuspid regurgitation present. 15. There is mild pulmonary hypertension. 16. The right ventricular systolic pressure, as measured by Doppler, is 44.62mmHg. 17. Trace/mild (physiologic) pulmonic regurgitation. 18. The aortic root size is normal. 19. The inferior vena cava is dilated with no significant inspiratory collapse which is consistent es timated right atrial pressure of >15 mmHg. 20. There is no pericardial effusion. ENVIRONMENTAL RESEARCH SCIENTIST: Adriane Summers RDCS
--- NOTE | 2019-03-29 16:50 | P.PN ---
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 patient was discharged to a subacute rehabilitation facility. He was brought from that facility to [facility] emergency room with ongoing epistaxis. He required packing. During that evaluation he was found to be in congestive heart failure and was transferred here for further treatment. In route he did receive Ativan for some combativeness and intolerant to oxygen mass. Upon arrival here he was obtunded with gurgling and developed agonal respirations requiring intubation in the ER. 03/29/2019 Patient is sedated and calm and comfortable. He is going to get a sedation holiday. Meanwhile, the patient is on assist control mode of ventilation. Chest x-ray is showing persistent pulmonary edema. The patient is currently on Lasix drip at 10 mg an hour. He is in a negative fluid balance. He has extensive edema in the upper and lower extremities bilaterally. He is afebrile. He is being treated with Unasyn regarding his ongoing endocarditis. A triple lumen cath was inserted yesterday in the right subclavian and he has a PICC line in his right upper extremity. Repeated blood cultures were sent. Otherwise, he is afebrile. He is requiring low-dose pressors for hemodynamic support. He is currently on norepinephrine infusion running at 2 g per minute. His white cell count is at 9.7. Hemoglobin is down slightly down to 10.7. His creatinine is also stable at 1.9. Troponins are slightly elevated; poss troponin leak. The patient otherwise has been stable overnight and there has been no other significant events. Objective - Vital Signs Vital signs: Vital Signs Temp 97.7 F 03/29/19 08:00 Pulse 128 H 03/29/19 11:45 Resp 15 03/29/19 11:45 BP 105/85 03/29/19 04:00 Pulse Ox 95 03/29/19 11:45 Intake & Output 03/28/19 03/29/19 03/29/19 18:59 06:59 18:59 Intake Total 524.994 797.508 163.004 Output Total 1140 1430 350 Balance -615.006 -632.492 -186.996 Weight 130.181 kg 126.1 kg 126.1 kg Intake: IV 522 360 80 Furosemide 100 mg In 30 120 Sodium Chloride 0.9% 90 ml @ 10 MG/HR 10 mls/hr IV .Q10H DEANDRA Rx#: [id number] Sodium Chloride 0.9% 1, 492 240 20 000 ml @ 126 mls/hr IV . Q7H57M DEANDRA Rx#:[id number] Sodium Chloride 0.9% 1, 60 000 ml @ 20 mls/hr IV . Q24H DEANDRA Rx#:[id number] Intake, IV Titration 2.994 437.508 83.004 Amount Ampicillin-Sulbactam 3 gm 100 In Sodium Chloride 0.9% 100 ml @ 200 mls/hr IVPB Q6HR DEANDRA Rx#:[id number] Furosemide 100 mg In 157.334 Sodium Chloride 0.9% 90 ml @ 10 MG/HR 10 mls/hr IV .Q10H DEANDRA Rx#: [id number] Propofol 1,000 mg In 2.994 Empty Bag 1 bag @ Titrate IV .Q0M ONE Rx#: [id number] Propofol 1,000 mg In 180.174 83.004 Empty Bag 1 bag @ Titrate IV .Q0M DEANDRA Rx#: [id number] Output: Urine 1140 1430 350 Other: Voiding Method Indwelling Catheter Indwelling Catheter Indwelling Catheter ABP, PAP, CO, CI - Last Documented Arterial Blood Pressure 109/63 - Exam GENERAL EXAM: Intubated, sedated 73-year-old gentleman, comfortable in no apparent distress. The patient's CVP as measured from the right subclavian triple lumen catheter is at 12. HEAD: Normocephalic. EYES: Sluggish reaction of pupils, equal size. NOSE: Nasal packing to the right Jj. Nasogastric tube in place.. THROAT: Oral endotracheal tube secured in place. No erythema or exudates. CHEST: No chest wall deformity. AICD insertion site is clean dry well approximated. Some ecchymosis. LUNGS: Equal air entry with bilateral crackles with few scattered rhonchi. CVS: S1 and S2 normal with audible murmur, regular rhythm. ABDOMEN: No hepatosplenomegaly, normal bowel sounds, no guarding or rigidity. SKIN: Excoriation on the coccyx. - Labs CBC & Chem 7: 03/29/19 05:45 03/29/19 05:45 Labs: Abnormal Lab Results - Last 24 Hours (Table) 03/28/19 03/28/19 03/28/19 Range/Units 14:31 21:52 23:36 RBC (4.30-5.90) m/uL Hgb (13.0-17.5) gm/dL Hct (39.0-53.0) % MCHC (31.0-37.0) g/dL RDW (11.5-15.5) % Plt Count (150-450) k/uL ABG pCO2 48 H (35-45) mmHg ABG pO2 74 L (83-108) mmHg ABG HCO3 30 H (21-25) mmol/L ABG Total CO2 31 H (19-24) mmol/L ABG O2 Saturation (94-97) % Potassium (3.5-5.1) mmol/L BUN (9-20) mg/dL Creatinine (0.66-1.25) mg/dL Glucose (74-99) mg/dL POC Glucose (mg/dL) 140 H (75-99) mg/dL Calcium (8.4-10.2) mg/dL Troponin I 0.051 H* (0.000-0.034) ng/mL 03/29/19 03/29/19 03/29/19 Range/Units 04:20 05:45 05:45 RBC 3.63 L (4.30-5.90) m/uL Hgb 10.7 L (13.0-17.5) gm/dL Hct 36.0 L (39.0-53.0) % MCHC 29.7 L (31.0-37.0) g/dL RDW 20.8 H (11.5-15.5) % Plt Count 133 L (150-450) k/uL ABG pCO2 (35-45) mmHg ABG pO2 (83-108) mmHg ABG HCO3 29 H (21-25) mmol/L ABG Total CO2 30 H (19-24) mmol/L ABG O2 Saturation 98.5 H (94-97) % Potassium 3.4 L (3.5-5.1) mmol/L BUN 56 H (9-20) mg/dL Creatinine 1.90 H (0.66-1.25) mg/dL Glucose 160 H (74-99) mg/dL POC Glucose (mg/dL) (75-99) mg/dL Calcium 7.9 L (8.4-10.2) mg/dL Troponin I (0.000-0.034) ng/mL 03/29/19 03/29/19 03/29/19 Range/Units 05:54 06:05 11:36 RBC (4.30-5.90) m/uL Hgb (13.0-17.5) gm/dL Hct (39.0-53.0) % MCHC (31.0-37.0) g/dL RDW (11.5-15.5) % Plt Count (150-450) k/uL ABG pCO2 (35-45) mmHg ABG pO2 (83-108) mmHg ABG HCO3 (21-25) mmol/L ABG Total CO2 (19-24) mmol/L ABG O2 Saturation (94-97) % Potassium (3.5-5.1) mmol/L BUN (9-20) mg/dL Creatinine (0.66-1.25) mg/dL Glucose (74-99) mg/dL POC Glucose (mg/dL) 153 H 154 H (75-99) mg/dL Calcium (8.4-10.2) mg/dL Troponin I 0.045 H* (0.000-0.034) ng/mL Microbiology - Last 24 Hours (Table) 03/28/19 09:11 Gram Stain - Preliminary Sputum Sputum Culture - Preliminary Assessment and Plan Assessment: 1. Acute hypoxic respiratory failure secondary to an acute exacerbation of systolic congestive heart failure requiring intubation and mechanical ventilatory support. 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 The patient was quite septic and hemodynamically unstable. He was treated with antibiotics. He required vent support. Patient was extubated successfully on 03/12/2019. Continued with metabolic encephalopathy and transferred to an extended care facility 03/26/2019. 2. 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 - cultures were positive for Enterococcus faecalis and the patient is on IV Unasyn; repeat blood cultures of been negative from 03/09/2019 and 03/10/2019. 3. Severe LV dysfunction and cardiomyopathy, ischemic in nature, ejection fraction of 20-25% post-insertion of AICD. 4. Coronary artery disease with previous CABG 5. 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 6. Elevated liver enzymes; possibly passive congestion due to CHF exacerbation; we will monitor closely 7. Acute kidney injury secondary to sepsis, ATN, current creatinine 2.12. 8. COPD; continue with home schedule of Pulmicort inhaler and Perforomist inhalations twice a day; DuoNeb nebulizer treatment every 4 hours 9. Hypertension; blood pressure is stable at this time 10. Hyperlipidemia; Lipitor 40 mg daily DVT prophylaxis; SCDs/subcu heparin CODE STATUS; full code Time with Patient: Greater than 30
[2019-03-29 18:13] LABS: Glucose,Whole Blood 156 mg/dL (75-99)
[2019-03-29 18:33] LABS: Glucose,Whole Blood 165 mg/dL (75-99)
[2019-03-29] MEDS: AMIODARONE 300 MG in DEXTROSE 5% IN WATER 250 ML IV SCH ×2 (20:07)
[2019-03-29 20:34] VITALS: BP 80/49
[2019-03-29 23:41] LABS: Glucose,Whole Blood 150 mg/dL (75-99)
[2019-03-30] MEDS: INSULIN ASPART (NovoLOG) 100 UNIT/ML VIAL SQ SCH ×4 (00:05→18:18)
[2019-03-30] MEDS: PROPOFOL 1,000 MG in EMPTY BAG 1 BAG IV SCH ×3 (00:06→19:35)
[2019-03-30] MEDS: methylPREDNISolone SOD SUCCI 125 MG/2 ML VIAL IV SCH ×4 (00:06→18:17)
[2019-03-30] MEDS: AMPICILLIN-SULBACTAM 3 GM in SODIUM CHLORIDE 0.9% 100 ML IVPB SCH ×4 (00:06→18:20)
[2019-03-30] MEDS: SODIUM CHLORIDE 0.9% 1,000 ML IV SCH (00:09)
[2019-03-30] MEDS: IPRATROPIUM-ALBUTEROL 3 ML NEB INHALATION SCH ×6 (03:18→22:53)
[2019-03-30 04:48] LABS: ABG Base Excess 4.5 mmol/L; ABG HCO3 29 mmol/L (21-25); ABG PCO2 43 mmHg (35-45); ABG PH 7.44 (7.35-7.45); ABG PO2 109 mmHg (83-108); ABG TCO2 30 mmol/L (19-24); Allen Test Performed? Yes
[2019-03-30] MEDS: FUROSEMIDE 100 MG in SODIUM CHLORIDE 0.9% 90 ML IV SCH ×2 (05:31→09:51)
[2019-03-30 05:46] LABS: Anisocytosis Moderate; Basophils % (A) 0 %; Eosinophils % (A) 0 %; HCT 34.6 % (39.0-53.0); HGB 10.5 gm/dL (13.0-17.5); Hypochromasia Marked; Lymphocytes # (A) 0.4 k/uL (1.0-4.8); Lymphocytes % (A) 3 %; MCHC 30.3 g/dL (31.0-37.0); MCV 98.9 fL (80.0-100.0); Macrocytosis Moderate; Mean Platelet Volume 8.2; Monocytes # (A) 0.4 k/uL (0-1.0); Monocytes % (A) 3 %; Neutrophils # (A) 9.9 k/uL (1.3-7.7); Neutrophils % (A) 93 %; Platelet Count 100 k/uL (150-450); Poikilocytosis Slight; RDW 20.4 % (11.5-15.5); WBC 10.6 k/uL (3.8-10.6)
[2019-03-30] MEDS: AMIODARONE 300 MG in DEXTROSE 5% IN WATER 250 ML IV SCH ×2 (05:46)
[2019-03-30 06:20] LABS: Glucose,Whole Blood 159 mg/dL (75-99)
[2019-03-30 07:06] LABS: Calcium 8.5 mg/dL (8.4-10.2); Potassium 3.7 mmol/L (3.5-5.1)
[2019-03-30] MEDS: FORMOTEROL FUMARATE 20 MCG/2 ML NEBU INHALATION SCH ×2 (07:12→18:54)
[2019-03-30] MEDS: BUDESONIDE 1 MG/2 ML NEBU INHALATION SCH ×2 (07:12→18:54)
--- NOTE | 2019-03-30 07:15 | P.PN ---
Subjective From the records 71-year-old male patient with known history of ischemic cardiomyopathy along with known history of coronary artery disease and previous aortic valve replacement, AVR, and previous coronary artery bypass surgery, who was recently in the hospital between March 01 and 03/26/2019 because of chest pain and non-STEMI. patient was discharged to a subacute rehabilitation facility. He was brought from that facility to [facility] emergency room with ongoing epistaxis. He required packing. During that evaluation he was found to be in congestive heart failure and was transferred here for further treatment. In route he did receive Ativan for some combativeness and intolerant to oxygen mass. Upon arrival here he was obtunded with gurgling and developed agonal respirations requiring intubation in the ER. 03/29/2019 Patient is sedated and calm and comfortable. He is going to get a sedation holiday. Meanwhile, the patient is on assist control mode of ventilation. Chest x-ray is showing persistent pulmonary edema. The patient is currently on Lasix drip at 10 mg an hour. He is in a negative fluid balance. He has extensive edema in the upper and lower extremities bilaterally. He is afebrile. He is being treated with Unasyn regarding his ongoing endocarditis. A triple lumen cath was inserted yesterday in the right subclavian and he has a PICC line in his right upper extremity. Repeated blood cultures were sent. Otherwise, he is afebrile. He is requiring low-dose pressors for hemodynamic support. He is currently on norepinephrine infusion running at 2 g per minute. His white cell count is at 9.7. Hemoglobin is down slightly down to 10.7. His creatinine is also stable at 1.9. Troponins are slightly elevated; poss troponin leak. The patient otherwise has been stable overnight and there has been no other significant events. Subjective: 03/30/2019 This is the first time taking care of the patient during this admission however the patient is known to me from last admission. Originally he was sent to [facility] from rehab for epistaxis, found to have heart failure and he was symptomatic N hospital, and doubly he got Ativan for agitation. Patient got intubated in the emergency room and currently he is in the ICU on sedation and mechanical ventilation. Patient cannot provide information which were taken from staff and medical records. Patient of pressors this morning he needed only small dose last night, currently his blood pressure is a stable at 105/48 with heart rate of 53, he is on PEEP of 5 and FiO2 of 50%. Distal on Lasix drip for leg edema and making good urine output. Patient remains on heparin drip, on antibiotics of Rocephin and Unasyn as per ID recommendation from last time for his SBE. Also he is on aspirin and Plavix and cartilage team R following the case very closely As per staff, daughter and talked to bedside nurse and she is considering comfort care especially if no improvement within 2-3 days Regardless the prognosis for short-term and long-term is poor and guarded Review of system: N/a Active Medications Generic Name Dose Route Start Last Admin Trade Name Freq PRN Reason Stop Dose Admin Albuterol/Ipratropium 3 ml 03/28/19 12:00 03/30/19 07:12 Duoneb 0.5 Mg-3 Mg/3 Ml Soln INHALATION 3 ml RT-Q4H DEANDRA Administration Atorvastatin Calcium 40 mg 03/29/19 09:00 03/29/19 09:50 Lipitor PO 40 mg DAILY DEANDRA Administration Budesonide 1 mg 03/28/19 20:00 03/30/19 07:12 Pulmicort INHALATION 1 mg RT-BID DEANDRA Administration Chlorhexidine Gluconate 15 ml 03/29/19 09:00 03/29/19 20:23 Peridex MUCOUS MEM 15 ml BID DEANDRA Administration Clopidogrel Bisulfate 75 mg 03/30/19 09:00 Plavix PO DAILY DEANDRA Formoterol Fumarate 20 mcg 03/28/19 20:00 03/30/19 07:12 Perforomist INHALATION 20 mcg RT-BID DEANDRA Administration Heparin Sodium (Porcine) 0 unit 03/29/19 12:48 03/30/19 00:01 Heparin IV 4,000 unit PER PROTOCOL PRN Administration Low PTT Protocol Hydromorphone HCl 1 mg 03/28/19 10:10 Dilaudid IVP Q2HR PRN Pain Scale 6 to 7 Ampicillin Sodium/Sulbactam 100 mls @ 200 mls/hr 03/28/19 12:00 03/30/19 05:32 Sodium 3 gm/ Sodium Chloride IVPB 200 mls/hr Q6HR DEANDRA Administration Propofol 1,000 mg/ IV Solution 100 mls @ 0 mls/hr 03/28/19 11:15 03/30/19 05:30 IV 25 mcg/kg/min .Q0M DEANDRA 18.915 mls/hr Administration Protocol Titrate Furosemide 100 mg/ Sodium 100 mls @ 10 mls/hr 03/28/19 13:30 03/30/19 05:31 Chloride IV 10 mg/hr .Q10H DEANDRA 10 mls/hr Administration 10 MG/HR Norepinephrine Bitartrate 32 250 mls @ 3.051 mls/hr 03/28/19 15:00 03/29/19 20:45 mg/ Sodium Chloride IV 0 mcg/kg/min .Q24H DEANDRA 0 mls/hr Titration Protocol 0.05 MCG/KG/MIN Sodium Chloride 1,000 mls @ 20 mls/hr 03/28/19 21:45 03/30/19 00:09 Saline 0.9% IV 20 mls/hr .Q24H DEANDRA Administration Ceftriaxone Sodium 2 gm/ 50 mls @ 100 mls/hr 03/29/19 09:00 03/29/19 11:32 Sodium Chloride IVPB 100 mls/hr Q24HR DEANDRA Administration Amiodarone HCl 300 mg/ 250 mls @ 25 mls/hr 03/29/19 20:00 03/30/19 05:46 Dextrose/Water IV 03/30/19 13:59 0.5 mg/min .Q10H DEANDRA 25 mls/hr Administration Protocol 0.5 MG/MIN Heparin Sodium/Sodium Chloride 250 mls @ 9.962 mls/hr 03/29/19 13:00 03/30/19 06:11 25,000 unit/ Sodium Chloride IV 0 units/kg/hr .Q24H DEANDRA 0 mls/hr Titration Protocol 7.9 UNITS/KG/HR Insulin Aspart 0 unit 03/29/19 00:00 03/30/19 06:22 Novolog SQ 1 unit Q6H DEANDRA Administration Protocol Methylprednisolone Sodium Succinate 60 mg 03/28/19 12:00 03/30/19 05:37 Solu-Medrol IV 60 mg Q6HR DEANDRA Administration Miscellaneous Information 1 each 03/29/19 08:25 Potassium Per Protocol MISCELLANE DAILY PRN Per Protocol Protocol Naloxone HCl 0.2 mg 03/28/19 10:10 Narcan IV Q2M PRN Opioid Reversal Pantoprazole Sodium 40 mg 03/29/19 09:00 03/29/19 08:16 Protonix IV 40 mg DAILY DEANDRA Administration Objective - Vital Signs Vital signs: Vital Signs Temp 97.6 F 03/30/19 04:00 Pulse 56 L 03/30/19 06:00 Resp 13 03/30/19 06:00 BP 80/49 03/29/19 20:00 Pulse Ox 98 03/30/19 06:00 Intake & Output 03/29/19 03/30/19 03/30/19 18:59 06:59 18:59 Intake Total 180.545 2571.820 Output Total 910 560 Balance 20.230 486.820 Weight 126.1 kg 127.6 kg Intake: IV 440 332 Ampicillin-Sulbactam 3 gm 200 In Sodium Chloride 0.9% 100 ml @ 200 mls/hr IVPB Q6HR DEANDRA Rx#:[id number] Art line 36 Sodium Chloride 0.9% 1, 20 000 ml @ 126 mls/hr IV . Q7H57M DEANDRA Rx#:[id number] Sodium Chloride 0.9% 1, 220 260 000 ml @ 20 mls/hr IV . Q24H DEANDRA Rx#:[id number] TL 36 Intake, IV Titration 320.230 674.820 Amount Amiodarone 300 mg In 241.25 Dextrose 5% in Water 250 ml @ 0.5 MG/MIN 25 mls/hr IV .Q10H DEANDRA Rx#: [id number] Furosemide 100 mg In 88.167 100 Sodium Chloride 0.9% 90 ml @ 10 MG/HR 10 mls/hr IV .Q10H DEANDRA Rx#: [id number] Heparin Sod,Pork in 0.45% 133.295 NaCl 25,000 unit In 0.45 % NaCl 1 250ml.bag @ 7.9 UNITS/KG/HR 9.962 mls/hr IV .Q24H DEANDRA Rx#: [id number] Norepinephrine 32 mg In 35.849 0.275 Sodium Chloride 0.9% 218 ml @ 0.05 MCG/KG/MIN 3. 051 mls/hr IV .Q24H DEANDRA Rx#:[id number] Propofol 1,000 mg In 196.214 200 Empty Bag 1 bag @ Titrate IV .Q0M DEANDRA Rx#: [id number] Tube Feeding 140 40 Other 30 Output: Urine 910 560 Other: Voiding Method Indwelling Catheter Indwelling Catheter # Bowel Movements 1 ABP, PAP, CO, CI - Last Documented Arterial Blood Pressure 105/48 - Exam -GENERAL: The patient is intubated and sedated HEENT: Pupils are round and equally reacting to light. EOMI. No scleral icterus. No conjunctival pallor. Normocephalic, atraumatic. No pharyngeal erythema. No thyromegaly. CARDIOVASCULAR: S1 and S2 present. No murmurs, rubs, or gallops. PULMONARY: Chest is clear to auscultation, no wheezing or crackles. -ABDOMEN: Soft, nontender, nondistended, normoactive bowel sounds. No palpable organomegaly. Diaz catheter is in place with good urine output MUSCULOSKELETAL: No joint swelling or deformity. EXTREMITIES: No cyanosis, clubbing, or pedal edema. NEUROLOGICAL: Gross neurological examination did not reveal any focal deficits. -SKIN: No rashes. no petechiae. Multiple bruises in the upper extremity - Labs CBC & Chem 7: 03/30/19 05:30 03/29/19 05:45 Labs: Abnormal Lab Results - Last 24 Hours (Table) 03/29/19 03/29/19 03/29/19 Range/Units 11:36 12:55 12:55 RBC 3.74 L (4.30-5.90) m/uL Hgb 11.1 L (13.0-17.5) gm/dL Hct 36.9 L (39.0-53.0) % MCHC 30.1 L (31.0-37.0) g/dL RDW 20.9 H (11.5-15.5) % Plt Count 105 L (150-450) k/uL Neutrophils # 8.0 H (1.3-7.7) k/uL Lymphocytes # 0.3 L (1.0-4.8) k/uL PT 13.6 H (9.0-12.0) sec INR 1.3 H (<1.2) APTT (22.0-30.0) sec ABG pO2 (83-108) mmHg ABG HCO3 (21-25) mmol/L ABG Total CO2 (19-24) mmol/L ABG O2 Saturation (94-97) % POC Glucose (mg/dL) 154 H (75-99) mg/dL 03/29/19 03/29/1903/29/19 Range/Units 18:12 18:31 23:40 RBC (4.30-5.90) m/uL Hgb (13.0-17.5) gm/dL Hct (39.0-53.0) % MCHC (31.0-37.0) g/dL RDW (11.5-15.5) % Plt Count (150-450) k/uL Neutrophils # (1.3-7.7) k/uL Lymphocytes # (1.0-4.8) k/uL PT (9.0-12.0) sec INR (<1.2) APTT (22.0-30.0) sec ABG pO2 (83-108) mmHg ABG HCO3 (21-25) mmol/L ABG Total CO2 (19-24) mmol/L ABG O2 Saturation (94-97) % POC Glucose (mg/dL) 156 H 165 H 150 H (75-99) mg/dL 03/30/19 03/30/19 03/30/19 Range/Units 04:44 05:30 05:30 RBC 3.50 L (4.30-5.90) m/uL Hgb 10.5 L (13.0-17.5) gm/dL Hct 34.6 L (39.0-53.0) % MCHC 30.3 L (31.0-37.0) g/dL RDW 20.4 H (11.5-15.5) % Plt Count 100 L (150-450) k/uL Neutrophils # 9.9 H (1.3-7.7) k/uL Lymphocytes # 0.4 L (1.0-4.8) k/uL PT (9.0-12.0) sec INR (<1.2) APTT 121.5 H* (22.0-30.0) sec ABG pO2 109 H (83-108) mmHg ABG HCO3 29 H (21-25) mmol/L ABG Total CO2 30 H (19-24) mmol/L ABG O2 Saturation 99.0 H (94-97) % POC Glucose (mg/dL) (75-99) mg/dL 03/30/19 Range/Units 06:19 RBC (4.30-5.90) m/uL Hgb (13.0-17.5) gm/dL Hct (39.0-53.0) % MCHC (31.0-37.0) g/dL RDW (11.5-15.5) % Plt Count (150-450) k/uL Neutrophils # (1.3-7.7) k/uL Lymphocytes # (1.0-4.8) k/uL PT (9.0-12.0) sec INR (<1.2) APTT (22.0-30.0) sec ABG pO2 (83-108) mmHg ABG HCO3 (21-25) mmol/L ABG Total CO2 (19-24) mmol/L ABG O2 Saturation (94-97) % POC Glucose (mg/dL) 159 H (75-99) mg/dL Assessment and Plan Assessment: Acute hypoxic respiratory failure secondary to an acute exacerbation of systolic congestive heart failure requiring intubation and mechanical ventilatory support. 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 acute Severe LV dysfunction and cardiomyopathy, ischemic in nature, ejection fraction of 20-25% post-insertion of AICD. 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 Continue with antibiotics, continue with diuretic, follow-up urine output. Vent management as per pulmonary team recommendation. Following recommendation by cardiology and pulmonary/critical care teams continue with aspirin and Plavix. Pain management. Continue with steroids. Labs and medication were reviewed.. Continue same treatment. Continue with symptomatic treatment. Resume home medication. Monitor lytes and vitals. DVT and GI prophylaxis. Further recommendations of the clinical course of the patient DVT prophylaxis: heparin GI Prophylaxis: Pepcid Prognosis is guarded
--- NOTE | 2019-03-30 07:36 | XR ---
EXAMINATION TYPE: XR chest 1V portable DATE OF EXAM: 03/30/2019 Comparison: 03/29/2019 Clinical History: 73-year-old male Intubated Findings: ET tube is satisfactory. NG tube courses below the diaphragm. Median sternotomy wires with prosthetic aortic valve. Right subclavian CVC tip in the right atrium. Right PICC tip not clearly seen beyond t he upper to mid SVC. Left anterior chest wall generator with right atrial and right ventricular leads . Multiple lines and catheters overlie the chest. Heart is mildly enlarged with diffuse interstitial densities which shows some improvement from prior. Retrocardiac opacity persists. Impression: 1. Residual mild CHF with improving interstitial edema. 2. Continued retrocardiac atelectasis and probable small effusion.
[2019-03-30] MEDS ORDERED: POTASSIUM BICARBONATE/CIT AC 20 MEQ TABLET.EFF PO ONE (09:05)
[2019-03-30] MEDS: ATORVASTATIN 40 MG TAB PO SCH (09:06)
[2019-03-30] MEDS: CHLORHEXIDINE GLUCONATE 15 ML CUP MUCOUS MEM SCH ×2 (09:06→19:58)
[2019-03-30] MEDS: PANTOPRAZOLE 40 MG/10 ML VIAL IV SCH (09:06)
[2019-03-30] MEDS: CLOPIDOGREL 75 MG TAB PO SCH (09:06)
--- NOTE | 2019-03-30 09:07 | P.NPCON ---
History of Present Illness - Reason for Consult acute renal failure - History of Present Illness reason for consultation: Acute kidney injury History of present illness: Patient is a 73-year-old male seen in consultation for acute kidney injury.patient was recently discharged from this facility and at that time was admitted with sepsis and endocarditis. Patient was found to have nosebleed but was also noted to be in CHF. He is currently intubated and sedated. He is maintained on Lasix drip at 10 mL an hour.patient has history of coronary artery disease status post stenting. Patient's ejection fraction is 20-25%. Currently not on vasopressors.urine output has been in the range of 30-60 mL per hour for the last few hours.he is currently on heparin and amiodarone drip for atrial tachycardia.renal function has been fairly stable this admission. Creatinine was 2.121 admission and is 2.06 today.patient's renal function was in the similar range when he was discharged earlier this month. Vital signs are stable. General: The patient appeared well nourished and normally developed. Intubated. HEENT: Head exam is unremarkable. Neck is without jugular venous distension. LUNGS: Breath sounds decreased. HEART: Rate and Rhythm are regular. First and second heart sounds normal. No murmurs, rubs or gallops. ABDOMEN: Abdominal exam reveals normal bowel sounds. Soft. EXTREMITITES: 2+ edema. Past Medical History Past Medical History: Asthma, Coronary Artery Disease (CAD), Chest Pain / Angina, Heart Failure, COPD, GERD/Reflux, Hyperlipidemia, Hypertension, Osteoarthritis (OA) Additional Past Medical History / Comment(s): Artery disease, previous MO, previous history of coronary artery bypass surgery, previous history aortic v alve replacement with a bioprosthetic valve, CHF with ejection fraction of 20- 25%, obesity with a BMI of 43, COPD, hypertension, hyperlipidemia, umbilical hernia, previous history of small bowel obstruction with an incarcerated hernia requiring surgical intervention, history of PTSD, generalized anxiety disorder, gout, 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 Past Anesthesia/Blood Transfusion Reactions: No Reported Reaction Date of Last Stent Placement:: 03/22/17 Type of Cardiac Device: Biventricular Pacemaker, AICD Device Placement Date:: 03/05/19 Past Psychological History: Anxiety, PTSD Smoking Status: Former smoker Past Alcohol Use History: None Reported Past Drug Use History: None Reported - Past Family History Father Family Medical History: Myocardial Infarction (MO) Additional Family Medical History / Comment(s): CABG. Father had a MO at the age of 72 yrs. Father at the age of 85 yrs. Mother Family Medical History: Myocardial Infarction (MO) Additional Family Medical History / Comment(s): CABG. Mother had a MO in her 70s. She lived to be 88yrs old. Medications and Allergies Home Medications Medication Instructions Recorded Confirmed Type Albuterol Sulfate [Proair Hfa] 2 puff INHALATION RT-QID PRN 01/27/16 03/01/19 History Budesonide-Formot 160-4.5 Mcg 2 puff INHALATION RT-BID PRN 01/27/16 03/01/19 History [Symbicort 160-4.5 Mcg Inhaler] Tiotropium [place] [Spiriva] 1 puff INHALATION RT-DAILY 01/27/16 03/01/19 History Allopurinol [Zyloprim] 100 mg PO HS PRN 01/04/17 03/01/19 History Albuterol Nebulized [Ventolin 2.5 mg INHALATION Q4H PRN 03/19/17 03/01/19 History Nebulized] Omeprazole [PriLOSEC] 40 mg PO AC-BRKFST 03/19/17 03/01/19 History Aspirin EC [Ecotrin Low Dose] 81 mg PO DAILY 08/29/18 03/01/19 History Clopidogrel [Plavix] 75 mg PO HS 09/19/18 03/01/19 History Amiodarone [Cordarone] 200 mg PO BID #60 tab 03/25/19 Rx Atorvastatin [Lipitor] 40 mg PO DAILY #30 tab 03/25/19 Rx Bisacodyl [Dulcolax] 10 mg PO DAILY PRN tablet. 03/25/19 Rx Furosemide [Lasix] 40 mg PO DAILY #30 tab 03/25/19 Rx Metoprolol Tartrate [Lopressor] 100 mg PO TID #180 tab 03/25/19 Rx Nystatin 100,000 Unit/gm Oint 1 applic TOPICAL BID applic 03/25/19 Rx [Mycostatin Oint] Potassium Chloride ER [K-Dur 20] 20 meq PO DAILY #30 tab.er.prt 03/25/19 Rx Ampicillin-Sulbactam [Unasyn] 3 gm IVPB Q6HR #168 vial 03/26/19 Rx cefTRIAXone [Rocephin] 2 gm IM Q24H #42 vial 03/26/19 Rx Allergies Allergy/AdvReac Type Severity Reaction Status Date / Time levofloxacin [From Levaquin] AdvReac Unknown Verified 03/01/19 15:17 Physical Exam Vitals: Vital Signs Temp Pulse Resp BP Pulse Ox 03/30/19 08:30 51 L 15 97 03/30/19 08:00 97 F L 62 14 99 03/30/19 07:30 79 40 H 98 03/30/19 07:12 53 L 03/30/19 07:00 55 L 14 99 03/30/19 06:30 70 14 98 03/30/19 06:00 56 L 13 98 03/30/19 05:30 57 L 15 98 03/30/19 05:00 59 L 14 97 03/30/19 04:30 53 L 13 97 03/30/19 04:00 97.6 F 58 L 14 98 03/30/19 03:33 63 03/30/19 03:30 61 14 99 03/30/19 03:24 67 03/30/19 03:00 56 L 14 97 03/30/19 02:30 60 14 97 03/30/19 02:00 55 L 14 97 03/30/19 01:30 69 14 97 03/30/19 01:00 54 L 16 98 03/30/19 00:39 56 L 11 L 97 03/30/19 00:30 58 L 12 98 03/30/19 00:00 97.8 F 69 14 95 03/29/19 23:55 64 03/29/19 23:38 68 03/29/19 23:30 70 14 100 03/29/19 23:00 85 14 100 03/29/19 22:00 69 14 99 03/29/19 21:30 72 14 97 03/29/19 21:00 64 19 99 03/29/19 20:51 55 L 03/29/19 20:50 55 L 03/29/19 20:37 56 L 03/29/19 20:00 97.6 F 69 14 80/49 97 03/29/19 19:00 72 14 98 03/29/19 18:00 73 14 97 03/29/19 17:00 68 14 96 03/29/19 16:00 97.1 F L 76 14 95 03/29/19 15:30 72 03/29/19 15:18 74 03/29/19 15:00 81 14 97 03/29/19 14:30 81 15 98 03/29/19 14:00 121 H 17 98 03/29/19 13:30 87 14 97 03/29/19 13:00 128 H 16 96 03/29/19 12:30 96 15 96 03/29/19 12:15 129 H 16 96 03/29/19 12:00 97.1 F L 128 H 18 95 03/29/19 11:45 128 H 15 95 03/29/19 11:38 108 H 03/29/19 11:30 101 H 15 97 03/29/19 11:22 98 03/29/19 11:15 98 17 96 03/29/19 11:00 91 17 98 03/29/19 10:45 84 14 99 03/29/19 10:30 86 15 99 03/29/19 10:15 89 15 97 03/29/19 10:00 80 17 98 03/29/19 09:45 79 15 97 03/29/19 09:30 87 15 97 03/29/19 09:15 87 14 96 03/29/19 09:00 92 15 97 Intake and Output 03/29/19 03/30/19 03/30/19 22:59 06:59 14:59 Intake Total 614.486 908.545 133.711 Output Total 385 410 60 Balance 229.486 498.545 73.711 Intake: IV 278 234 26 Ampicillin-Sulbactam 3 gm 100 In Sodium Chloride 0.9% 100 ml @ 200 mls/hr IVPB Q6HR [facility] Rx#:[id number] Art line 9 27 3 Sodium Chloride 0.9% 1, 160 180 20 000 ml @ 20 mls/hr IV . Q24H [facility] Rx#:[id number] cvp 9 27 3 Intake, IV Titration 186.486 674.545 45.711 Amount Amiodarone 300 mg In 241.25 Dextrose 5% in Water 250 ml @ 0.5 MG/MIN 25 mls/hr IV .Q10H [facility] Rx#: [id number] Furosemide 100 mg In 88.167 100 Sodium Chloride 0.9% 90 ml @ 10 MG/HR 10 mls/hr IV .Q10H [facility] Rx#: [id number] Heparin Sod,Pork in 0.45% 133.295 0 NaCl 25,000 unit In 0.45 % NaCl 1 250ml.bag @ 7.9 UNITS/KG/HR 9.962 mls/hr IV .Q24H [facility] Rx#: [id number] Norepinephrine 32 mg In 2.105 Sodium Chloride 0.9% 218 ml @ 0.05 MCG/KG/MIN 3. 051 mls/hr IV .Q24H [facility] Rx#:[id number] Propofol 1,000 mg In 96.214 200 45.711 Empty Bag 1 bag @ Titrate IV .Q0M [facility] Rx#: [id number] Tube Feeding 120 32 Other 30 30 Output: Urine 385 410 60 Other: Voiding Method Indwelling Catheter Indwelling Catheter # Bowel Movements 1 Weight 127.6 kg ABP, PAP, CO, CI - Last 8 Hours Arterial Blood Pressure 126/57 Arterial Blood Pressure 110/55 Arterial Blood Pressure 102/55 Arterial Blood Pressure 107/47 Arterial Blood Pressure 110/52 Arterial Blood Pressure 105/48 Arterial Blood Pressure 110/51 Arterial Blood Pressure 96/45 Arterial Blood Pressure 102/51 Arterial Blood Pressure 101/47 Arterial Blood Pressure 102/51 Arterial Blood Pressure 91/52 Arterial Blood Pressure 99/54 Arterial Blood Pressure 95/46 Arterial Blood Pressure 95/45 Arterial Blood Pressure 92/49 Results - Lab Results Most recent lab results ABG pH 7.44 (7.35-7.45) 03/30/19 04:44 ABG pCO2 43 mmHg (35-45) 03/30/19 04:44 ABG pO2 109 mmHg (83-108) H 03/30/19 04:44 ABG HCO3 29 mmol/L (21-25) H 03/30/19 04:44 ABG O2 Saturation 99.0 % (94-97) H 03/30/19 04:44 Calcium 8.5 mg/dL (8.4-10.2) 03/30/19 05:30 Magnesium 2.2 mg/dL (1.6-2.3) 03/29/19 05:45 03/30/19 05:30 03/30/19 05:30 Assessment and Plan Plan: assessment: 1. Acute kidney injury secondary to ATN secondary to sepsis and cardiorenal syndrome. Renal function fairly stable. Creatinine 2.06 today. 2. Acute hypoxic respiratory failure. 3. Volume overload. 4. Mild hypernatremia secondary to diuresis and lack of oral water intake. 5. Atrial tachycardia maintained on heparin and amiodarone drip. Cardiology following. 6. Acute on chronic systolic CHF with ejection fraction of 20-25% with moderate to severe mitral regurgitation. 7. Endocarditis maintained on antibiotics. Plan: Increase Lasix drip to 15 mL an hour. Add metolazone 5 mg once daily. Avoid nephrotoxins. Continue to monitor renal function and urine output. Thank you for the consultation. I will continue to follow the patient with you during his hospital stay.
[2019-03-30] MEDS: METOLAZONE 5 MG TAB PO SCH (09:51)
[2019-03-30 11:41] LABS: Glucose,Whole Blood 155 mg/dL (75-99)
--- NOTE | 2019-03-30 12:29 | P.PN ---
Subjective Progress Note Date: 03/30/19 Principal diagnosis: Acute hypoxic respiratory failure secondary to acute on chronic systolic congestive heart failure and endocarditis. This is a 71-year-old male patient with known history of ischemic cardiomyopathy along with known history of coronary artery disease and previous aortic valve replacement, AVR, and previous coronary artery bypass surgery, who was recently in the hospital between March 01 and 03/26/2019 because of chest pain and non-STEMI. The patient has had previous catheterizations with stenting done in the distal left main as well as the proximal circumflex. He has a chronically totally occluded RCA. As mentioned, the patient was admitted with chest pain or shortness of breath and acute non-STEMI. The patient underwent another cardiac catheterization and the patient was found to have taken stent to the distal left mainstem to proximal circumflex, patent BELTRAN to LAD, chronic totally occluded RCA. His ejection fraction was 20-25% and he had also received biventricular pacing/AICD at that hospitalization. He had a complicated course and had developed endocarditis. He had acute respiratory failure requiring prolonged ventilation. He subsequently recovered and was transferred to a subacute rehabilitation facility. He was brought from that facility to [place] emergency room with ongoing epistaxis. He required packing. During that evaluation he was found to be in congestive heart failure and was transferred here for further treatment. In route he did receive Ativan for some combativeness and intolerant to oxygen mass. Upon arrival here he was obtunded with gurgling and developed agonal respirations requiring intubation in the ER. Arterial blood gases on 100% FiO2 revealed a pO2 of 171, P CO2 66, pH 7.23. White count 11.2. Hemoglobin 12.4. INR 1.6. Sodium 145. Potassium 5.0. BUN 60. Creatinine 2.12. AST 103, ALT 102, alk phos 273. Troponin 0.049. ProBNP 65,100. He is seen now in the intensive care unit. He is on propofol at 15 mcg/kg/m. He remains intubated on the mechanical ventilator with assist control of 14, tidal volume 500, FiO2 50% and a PEEP of 5. Chest x-ray reveals evidence of congestive heart failure. On today's evaluation of 03/29/2019 I'm seeing this patient for a follow-up. This morning the patient is well sedated and calm and comfortable and he is running on propofol at 10 g per KG per minute. He is going to get a sedation holiday. Meanwhile, the patient is on assist control mode of ventilation. He is currently on assist control of 14 with an FiO2 of 50% with a PEEP of 5 and a tidal volume of 500. The blood gases from this morning shows a pH of 7.44 with a pCO2 of 43 and pO2 100 on the above-mentioned vent setting. Chest x-ray is showing persistent pulmonary edema. The patient is currently on Lasix drip at 10 mg an hour. He is producing excellent urine output in the order of 200 mL an hour. He is in a negative fluid balance. He has extensive edema in the upper and lower extremities bilaterally. His current CVP is running at 12. He is afebrile. He is being treated with Unasyn regarding his ongoing endocarditis. A triple lumen cath was inserted yesterday in the right subclavian and he has a PICC line in his right upper extremity. Repeated blood cultures both central and peripheral will be sent. Otherwise, he is afebrile. He is requiring low-d ose pressors for hemodynamic support. He is currently on norepinephrine infusion running at 2 g per minute. His white cell count is at 9.7. Hemoglobin is down slightly down to 10.7. His creatinine is also stable at 1.9. Troponins are slightly elevated. And the patient has a troponin leak. The patient otherwise has been stable overnight and there has been no other significant events. Patient was reevaluated today on 03/30/2019, he is presently on mechanical ventilation, his ventilator settings are tidal volume of 500, assist control rate of 14 FiO2 is 50% but cut down to 45% and PEEP is 5. ABG showed a pO2 of 109 pCO2 of 43 pH of 7.44. Patient is on propofol at 30 mcg/kg/m, Lasix drip at 10 mg per hour, amiodarone, 0.5 mg. Heparin, on off norepinephrine. Chest x- ray continues to show evidence of congestive heart failure. Urine output is reasonable but not great. Patient is sedated. CBC showed evidence of 10.6 hemoglobin is 10.5. PTT is elevated hence his heparin was placed on hold temporarily. Sodium 146 BUN is 63 creatinine 2.06, being followed by nephrology. His Lasix was increased to 15 mg per hour, and metolazone was added at 5 mg once daily. Nurses were instructed on waking up the patient off propofol, and at least assessing mental status today. Clearly based on his chest x-ray findings, and based on his marginal ABG, patient is not quite ready for any weaning trials. Patient is receiving enteral feeding. Via orogastric tube. Objective - Vital Signs Vital signs: Vital Signs Temp 97 F L 03/30/19 08:00 Pulse 60 03/30/19 11:34 Resp 16 03/30/19 11:00 BP 80/49 03/29/19 20:00 Pulse Ox 98 03/30/19 11:00 Intake & Output 03/29/19 03/30/19 03/30/19 18:59 06:59 18:59 Intake Total 450.432 1546.820 417.504 Output Total 910 560 270 Balance 20.230 486.820 147.504 Weight 126.1 kg 127.6 kg Intake: IV 440 332 154 Ampicillin-Sulbactam 3 gm 200 In Sodium Chloride 0.9% 100 ml @ 200 mls/hr IVPB Q6HR [facility] Rx#:[id number] Art line 36 12 Sodium Chloride 0.9% 1, 20 000 ml @ 126 mls/hr IV . Q7H57M [facility] Rx#:[id number] Sodium Chloride 0.9% 1, 220 260 80 000 ml @ 20 mls/hr IV . Q24H [facility] Rx#:[id number] cefTRIAXone 2 gm In 50 Sodium Chloride 0.9% 50 ml @ 100 mls/hr IVPB Q24HR [facility] Rx#:[id number] cvp 36 12 Intake, IV Titration 320.230 674.820 105.504 Amount Amiodarone 300 mg In 241.25 Dextrose 5% in Water 250 ml @ 0.5 MG/MIN 25 mls/hr IV .Q10H [facility] Rx#: [id number] Furosemide 100 mg In 88.167 100 43.333 Sodium Chloride 0.9% 90 ml @ 15 MG/HR 15 mls/hr IV .Q6H40M [facility] Rx#: [id number] Heparin Sod,Pork in 0.45% 133.295 0 NaCl 25,000 unit In 0.45 % NaCl 1 250ml.bag @ 7.9 UNITS/KG/HR 9.962 mls/hr IV .Q24H [facility] Rx#: [id number] Norepinephrine 32 mg In 35.849 0.275 Sodium Chloride 0.9% 218 ml @ 0.05 MCG/KG/MIN 3. 051 mls/hr IV .Q24H [facility] Rx#:[id number] Propofol 1,000 mg In 196.214 200 62.171 Empty Bag 1 bag @ Titrate IV .Q0M [facility] Rx#: [id number] Tube Feeding 140 40 128 Other 30 30 Output: Urine 910 560 270 Other: Voiding Method Indwelling Catheter Indwelling Catheter Indwelling Catheter # Bowel Movements 1 ABP, PAP, CO, CI - Last Documented Arterial Blood Pressure 111/55 - Exam Physical exam revealed sedated 73-year-old gentleman, on mechanical ventilation. HEAD: Normocephalic. Atraumatic. EYES: PERRLA, EOMI, no icterus. NOSE: Nasal packing noted, hence initiated ENT consultation to address the nasal packing. THROAT: Oral endotracheal tube secured in place. No erythema or exudates. No thrush. NECK: No masses, no JVD. Trachea is in midline. No thyromegaly. CHEST: Clear breath sounds anteriorly, crackles at the bases, symmetrical chest expansion, left sided AICD noted. LUNGS: Equal air entry with bilateral crackles with few scattered rhonchi. CVS: Normal S1 and S2, 2/6 systolic murmur thought the precordium. ABDOMEN: Obese, soft, nontender, no megaly, no rebound, no guarding. SPINE: No scoliosis or deformity SKIN: Excoriation on the coccyx. CENTRAL NERVOUS SYSTEM: Sedated, cannot be fully assessed, 1 in 4 extremities is intact. EXTREMITIES: There is 1-2+ peripheral edema. No clubbing, no cyanosis. Peripheral pulses are intact. - Labs CBC & Chem 7: 03/30/19 05:30 03/30/19 05:30 Labs: Abnormal Lab Results - Last 24 Hours (Table) 03/29/19 03/29/19 03/29/19 Range/Units 12:55 12:55 18:12 RBC 3.74 L (4.30-5.90) m/uL Hgb 11.1 L (13.0-17.5) gm/dL Hct 36.9 L (39.0-53.0) % MCHC 30.1 L (31.0-37.0) g/dL RDW 20.9 H (11.5-15.5) % Plt Count 105 L (150-450) k/uL Neutrophils # 8.0 H (1.3-7.7) k/uL Lymphocytes # 0.3 L (1.0-4.8) k/uL PT 13.6 H (9.0-12.0) sec INR 1.3 H (<1.2) APTT (22.0-30.0) sec ABG pO2 (83-108) mmHg ABG HCO3 (21-25) mmol/L ABG Total CO2 (19-24) mmol/L ABG O2 Saturation (94-97) % Sodium (137-145) mmol/L Chloride (98-107) mmol/L BUN (9-20) mg/dL Creatinine (0.66-1.25) mg/dL Glucose (74-99) mg/dL POC Glucose (mg/dL) 156 H (75-99) mg/dL 03/29/19 03/29/19 03/30/19 Range/Units 18:31 23:40 04:44 RBC (4.30-5.90) m/uL Hgb (13.0-17.5) gm/dL Hct (39.0-53.0) % MCHC (31.0-37.0) g/dL RDW (11.5-15.5) % Plt Count (150-450) k/uL Neutrophils # (1.3-7.7) k/uL Lymphocytes # (1.0-4.8) k/uL PT (9.0-12.0) sec INR (<1.2) APTT (22.0-30.0) sec ABG pO2 109 H (83-108) mmHg ABG HCO3 29 H (21-25) mmol/L ABG Total CO2 30 H (19-24) mmol/L ABG O2 Saturation 99.0 H (94-97) % Sodium (137-145) mmol/L Chloride (98-107) mmol/L BUN (9-20) mg/dL Creatinine (0.66-1.25) mg/dL Glucose (74-99) mg/dL POC Glucose (mg/dL) 165 H 150 H (75-99) mg/dL 03/30/19 03/30/19 03/30/19 Range/Units 05:30 05:30 05:30 RBC 3.50 L (4.30-5.90) m/uL Hgb 10.5 L (13.0-17.5) gm/dL Hct 34.6 L (39.0-53.0) % MCHC 30.3 L (31.0-37.0) g/dL RDW 20.4 H (11.5-15.5) % Plt Count 100 L (150-450) k/uL Neutrophils # 9.9 H (1.3-7.7) k/uL Lymphocytes # 0.4 L (1.0-4.8) k/uL PT (9.0-12.0) sec INR (<1.2) APTT 121.5 H* (22.0-30.0) sec ABG pO2 (83-108) mmHg ABG HCO3 (21-25) mmol/L ABG Total CO2 (19-24) mmol/L ABG O2 Saturation (94-97) % Sodium 146 H (137-145) mmol/L Chloride 108 H (98-107) mmol/L BUN 63 H (9-20) mg/dL Creatinine 2.06 H (0.66-1.25) mg/dL Glucose 186 H (74-99) mg/dL POC Glucose (mg/dL) (75-99) mg/dL 03/30/19 03/30/19 Range/Units 06:19 11:39 RBC (4.30-5.90) m/uL Hgb (13.0-17.5) gm/dL Hct (39.0-53.0) % MCHC (31.0-37.0) g/dL RDW (11.5-15.5) % Plt Count (150-450) k/uL Neutrophils # (1.3-7.7) k/uL Lymphocytes # (1.0-4.8) k/uL PT (9.0-12.0) sec INR (<1.2) APTT (22.0-30.0) sec ABG pO2 (83-108) mmHg ABG HCO3 (21-25) mmol/L ABG Total CO2 (19-24) mmol/L ABG O2 Saturation (94-97) % Sodium (137-145) mmol/L Chloride (98-107) mmol/L BUN (9-20) mg/dL Creatinine (0.66-1.25) mg/dL Glucose (74-99) mg/dL POC Glucose (mg/dL) 159 H 155 H (75-99) mg/dL Microbiology - Last 24 Hours (Table) 03/29/19 09:05 Blood Culture - Preliminary Blood No Growth after 24 hours Assessment and Plan Assessment: Impression: Acute hypoxic respiratory failure secondary to acute on chronic systolic congestive heart failure Recent history of enterococcal infective endocarditis. 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 Epistaxis status post packing of the right nostril. ENT was consulted. History of hypertension, hyperlipidemia, COPD, Acute kidney injury secondary to sepsis and possibly cardiorenal. Poor overall functional and medical debility. Recommendation: Continue ventilatory support Continue hemodynamic support Continue nutritional support Continue antibiotics Continue Lasix drip at 15 mg per hour Continue GI and DVT prophylaxis. Continued daily weaning trials of possible depending on his overall mental status Continue anticoagulations therapy once cleared by ENT. Continue bronchodilators. Reevaluate echocardiogram and assess if any change compared to previous echocard iogram. Continue to monitor in the ICU prognosis is extremely poor and guarded, I would likely approach the family today or tomorrow addressing the issue of comfort care measures. According to the nurses they may be agreeable to comfort care measures considering his overall comorbidities and poor prognosis. Or at least discuss with the family the issue of extubation, and not to reintubate if fails extubation. Critical care time is 35 minutes. Time with Patient: Greater than 30
--- NOTE | 2019-03-30 16:29 | P.PN ---
Subjective This is Chanel Leblanc PA-C dictating a progress note on this patient The patient was interviewed and examined by me as well as by Dr. Ho Case discussed with Dr. 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 LISSET in February showed echodensity attached to the LVOT side of aortic bioprosthetic valve, on IV antibiotics, repeat echo showed normally functioning bioprosthetic valve, cannot exclude vegetation Nosebleed requiring nasal packing, aspirin and Plavix on hold Paroxysmal atrial fibrillation/atrial tachycardia with RVR biventricular ventricular pacing, currently in sinus rhythm with biventricular pacing BEATRIZ PLAN: Converted to oral amiodarone 200 mg twice a day Continue heparin and Plavix, monitor CBC and coags Continue diuresis with Lasix drip We'll reinitiate beta russell therapy when blood pressure improves, he is currently requiring pressors HPI/interval history Patient is a 73-year-old male with a history of ischemic cardiomyopathy, EF around 20%, CAD status post CABG and recent stenting, valvular heart disease status post aortic valve replacement who is transferred here from [facility]. He had a recent complicated hospitalization where he ended up being diagnosed with sepsis and endocarditis. He presented to [facility] with a nosebleed but was found to be in an acute CHF exacerbation and was transferred here. In the emergency department he developed worsening respiratory distress and required sedation and intubation. He is diuresing on a Lasix drip.yesterday he was in an atrial tachycardia and we started him on IV amiodarone. Today he is in sinus rhythm with biventricular pacing. Patient seen and examined in the ICU, remains sedated and intubated. Still requiring pressors. EXAMINATION Patient is afebrile, pulse 62, respirations 14, blood pressure 110/55, oxygen saturation 99% on mechanical ventilation Patient seen and examined in the ICU, sedated and intubated, nasal packing with dried blood in the right nostril Lungs are diminished with few scattered crackles bilaterally Heart is regular, systolic murmur noted He has 1+ pitting edema in his lower extremities, mild edema in his upper extremities REVIEW OF LABS, ECG WBC 10.6, hemoglobin 10.5, platelets 100, potassium 3.7, BUN 63, creatinine 2.06 Echocardiogram showed EF 20-25%, normally functioning bioprosthetic valve, cannot exclude vegetation, Objective - Vital Signs Vital signs: Vital Signs Temp 97 F L 03/30/19 12:00 Pulse 67 03/30/19 16:15 Resp 14 03/30/19 14:00 BP 80/49 03/29/19 20:00 Pulse Ox 97 03/30/19 14:00 Intake & Output 03/29/19 03/30/19 03/30/19 18:59 06:59 18:59 Intake Total 867.618 0329.820 793.331 Output Total 910 560 720 Balance 20.230 486.820 73.331 Weight 126.1 kg 127.6 kg Intake: IV 440 332 332 Ampicillin-Sulbactam 3 gm 200 100 In Sodium Chloride 0.9% 100 ml @ 200 mls/hr IVPB Q6HR DEANDRA Rx#:[id number] Art line 36 21 Sodium Chloride 0.9% 1, 20 000 ml @ 126 mls/hr IV . Q7H57M DEANDRA Rx#:[id number] Sodium Chloride 0.9% 1, 220 260 140 000 ml @ 20 mls/hr IV . Q24H DEANDRA Rx#:[id number] cefTRIAXone 2 gm In 50 Sodium Chloride 0.9% 50 ml @ 100 mls/hr IVPB Q24HR DEANDRA Rx#:[id number] cvp 36 21 Intake, IV Titration 320.230 674.820 177.331 Amount Amiodarone 300 mg In 241.25 Dextrose 5% in Water 250 ml @ 0.5 MG/MIN 25 mls/hr IV .Q10H DEANDRA Rx#: [id number] Furosemide 100 mg In 88.167 100 43.333 Sodium Chloride 0.9% 90 ml @ 15 MG/HR 15 mls/hr IV .Q6H40M DEANDRA Rx#: [id number] Heparin Sod,Pork in 0.45% 133.295 71.827 NaCl 25,000 unit In 0.45 % NaCl 1 250ml.bag @ 7.9 UNITS/KG/HR 9.962 mls/hr IV .Q24H DEANDRA Rx#: [id number] Norepinephrine 32 mg In 35.849 0.275 Sodium Chloride 0.9% 218 ml @ 0.05 MCG/KG/MIN 3. 051 mls/hr IV .Q24H DEANDRA Rx#:[id number] Propofol 1,000 mg In 196.214 200 62.171 Empty Bag 1 bag @ Titrate IV .Q0M DEANDRA Rx#: [id number] Tube Feeding 140 40 224 Other 30 60 Output: Urine 910 560 720 Other: Voiding Method Indwelling Catheter Indwelling Catheter Indwelling Catheter # Bowel Movements 1 ABP, PAP, CO, CI - Last Documented Arterial Blood Pressure 97/44 - Labs CBC & Chem 7: 03/30/19 05:30 03/30/19 05:30 Labs: Abnormal Lab Results - Last 24 Hours (Table) 03/29/19 03/29/19 03/29/19 Range/Units 18:12 18:31 23:40 RBC (4.30-5.90) m/uL Hgb (13.0-17.5) gm/dL Hct (39.0-53.0) % MCHC (31.0-37.0) g/dL RDW (11.5-15.5) % Plt Count (150-450) k/uL Neutrophils # (1.3-7.7) k/uL Lymphocytes # (1.0-4.8) k/uL APTT (22.0-30.0) sec ABG pO2 (83-108) mmHg ABG HCO3 (21-25) mmol/L ABG Total CO2 (19-24) mmol/L ABG O2 Saturation (94-97) % Sodium (137-145) mmol/L Chloride (98-107) mmol/L BUN (9-20) mg/dL Creatinine (0.66-1.25) mg/dL Glucose (74-99) mg/dL POC Glucose (mg/dL) 156 H 165 H 150 H (75-99) mg/dL 03/30/19 03/30/19 03/30/19 Range/Units 04:44 05:30 05:30 RBC 3.50 L (4.30-5.90) m/uL Hgb 10.5 L (13.0-17.5) gm/dL Hct 34.6 L (39.0-53.0) % MCHC 30.3 L (31.0-37.0) g/dL RDW 20.4 H (11.5-15.5) % Plt Count 100 L (150-450) k/uL Neutrophils # 9.9 H (1.3-7.7) k/uL Lymphocytes # 0.4 L (1.0-4.8) k/uL APTT (22.0-30.0) sec ABG pO2 109 H (83-108) mmHg ABG HCO3 29 H (21-25) mmol/L ABG Total CO2 30 H (19-24) mmol/L ABG O2 Saturation 99.0 H (94-97) % Sodium 146 H (137-145) mmol/L Chloride 108 H (98-107) mmol/L BUN 63 H (9-20) mg/dL Creatinine 2.06 H (0.66-1.25) mg/dL Glucose 186 H (74-99) mg/dL POC Glucose (mg/dL) (75-99) mg/dL 03/30/19 03/30/19 03/30/19 Range/Units 05:30 06:19 11:39 RBC (4.30-5.90) m/uL Hgb (13.0-17.5) gm/dL Hct (39.0-53.0) % MCHC (31.0-37.0) g/dL RDW (11.5-15.5) % Plt Count (150-450) k/uL Neutrophils # (1.3-7.7) k/uL Lymphocytes # (1.0-4.8) k/uL APTT 121.5 H* (22.0-30.0) sec ABG pO2 (83-108) mmHg ABG HCO3 (21-25) mmol/L ABG Total CO2 (19-24) mmol/L ABG O2 Saturation (94-97) % Sodium (137-145) mmol/L Chloride (98-107) mmol/L BUN (9-20) mg/dL Creatinine (0.66-1.25) mg/dL Glucose (74-99) mg/dL POC Glucose (mg/dL) 159 H 155 H (75-99) mg/dL 03/30/19 Range/Units 14:15 RBC (4.30-5.90) m/uL Hgb (13.0-17.5) gm/dL Hct (39.0-53.0) % MCHC (31.0-37.0) g/dL RDW (11.5-15.5) % Plt Count (150-450) k/uL Neutrophils # (1.3-7.7) k/uL Lymphocytes # (1.0-4.8) k/uL APTT 94.8 H (22.0-30.0) sec ABG pO2 (83-108) mmHg ABG HCO3 (21-25) mmol/L ABG Total CO2 (19-24) mmol/L ABG O2 Saturation (94-97) % Sodium (137-145) mmol/L Chloride (98-107) mmol/L BUN (9-20) mg/dL Creatinine (0.66-1.25) mg/dL Glucose (74-99) mg/dL POC Glucose (mg/dL) (75-99) mg/dL Microbiology - Last 24 Hours (Table) 03/29/19 11:40 Blood Culture - Preliminary Blood No Growth after 24 hours 03/28/19 09:11 Gram Stain - Final Sputum Sputum Culture - Final Amarilys albicans 03/29/19 09:05 Blood Culture - Preliminary Blood No Growth after 24 hours
[2019-03-30] MEDS: NOREPINEPHRINE 32 MG in SODIUM CHLORIDE 0.9% 218 ML IV SCH (17:18)
[2019-03-30 17:38] LABS: Glucose,Whole Blood 137 mg/dL (75-99)
[2019-03-30] MEDS: HEPARIN SOD,PORK IN 0.45% NACL 25,000 UNIT in 0.45% NACL 1 250ML.BAG IV SCH ×2 (18:17→22:05)
--- NOTE | 2019-03-30 19:46 | PCN ---
PROCEDURE NOTE PREOPERATIVE DIAGNOSIS: Right anterior epistaxis. POSTOPERATIVE DIAGNOSIS: Right anterior epistaxis. PROCEDURE: Silver nitrate cauterization, right anterior septum. ANESTHESIA: None. COMPLICATIONS: None. PROCEDURE DESCRIPTION: The patient had packing removed and had excoriation of the anterior septum with mild oozing which was controlled with silver nitrate cauterization. This controlled the epistaxis well. The patient tolerated the procedure well with no complications. MMODL / IJN: [id number] /
--- NOTE | 2019-03-30 19:46 | CONS ---
CONSULTATION REASON FOR CONSULTATION: Epistaxis. HISTORY: This is a 73-year-old white male who was admitted for cardiopulmonary arrest and failure with history of COPD and CHF. He was recently discharged from this same hospital. He required intubation in the ER and is on ventilator. He presented to [place] [facility] with epistaxis from his rehabilitation center and had bilateral balloon packs placed. This has controlled his bleeding over the last 2 days. He does remain on Plavix and also is on heparin drip presently. Due to the fact that he is intubated, he cannot give history, but history was obtained through the medical record otherwise. It is unknown whether the patient was on nasal cannula oxygen at his rehabilitation center. It is also unknown whether he has a history of epistaxis or sinonasal issues otherwise. MEDICATIONS: Medications at outside institution were: 1. Albuterol. 2. Symbicort. 3. Spiriva. 4. Zyloprim. 5. Ventolin. 6. Omeprazole. 7. Aspirin. 8. Plavix. ALLERGIES: LEVAQUIN. REVIEW OF SYSTEMS: Again nonobtainable due to the patient's intubated and sedated status. PAST MEDICAL HISTORY: Past medical history is positive for: 1. Asthma. 2. Coronary artery disease. 3. Heart failure. 4. COPD. 5. GERD. 6. Hyperlipidemia. 7. Hypertension. 8. Osteoarthritis. 9. Previous DE and bypass surgery. 10.Aortic valve replacement. 11.Obesity. PAST SURGICAL HISTORY: 1. Appendectomy. 2. Cardiac valve replacement. 3. Cholecystectomy. 4. CABG. 5. Herniorrhaphy. 6. Ventral incisional hernia repair. 7. Exploratory laparotomy. 8. Cataract surgery. SOCIAL HISTORY: He did smoke. Alcohol consumption unknown. FAMILY HISTORY: Family history is positive for DE and CABG. PHYSICAL EXAMINATION: GENERAL: This is an obese adult white male intubated and sedated in the ICU. HEENT: Head normocephalic and atraumatic. Ears: Bilaterally canals are clear. Tympanic membranes unremarkable, mobile. Nose shows bilateral Rhino Rocket balloon packs in place. These are single-cuff balloons. The left one was white, with no blood staining. The right one had old blood which was crusted around the anterior naris but no active bleeding. These were both removed. There were no abnormalities on the left. On the right, there was a large septal spur posteriorly. Anterior nasal septum had excoriation and minimal oozing which was controlled with silver nitrate. See procedure note. The nasopharynx was unremarkable. Oral cavity and oropharynx showed the patient intubated with an orogastric tube and oral endotracheal tube with no posterior bleeding. NECK: Supple, without adenopathy or tenderness. ASSESSMENT: 1. Primary right epistaxis. 2. Anticoagulated status. PLAN: Would avoid instrumentation of the nasal cavities, including NG tube. The patient does apparently need to remain on anticoagulants, which would be otherwise contraindicated with the recent epistaxis and does put him at risk for recurrent epistaxis. Once weaned, oxygenation should be humidified in order to prevent further epistaxis also. If there are questions or concerns, please free to contact me. I did leave a verbal order for Afrin to be used as needed for milder epistaxis, which would stop any minor episodes typically. MMODL / IJN: [id number] /
--- NOTE | 2019-03-30 19:49 | PCN ---
PROCEDURE NOTE PREOPERATIVE DIAGNOSIS: History of epistaxis with bilateral nasal packs. POSTOPERATIVE DIAGNOSIS: History of epistaxis with bilateral nasal packs with evidence of right anterior epistaxis and large nasal septal spur posteriorly on the right. PROCEDURE: Nasal endoscopy. PROCEDURE DESCRIPTION: The patient was in his hospital bed, sedated and intubated. After the nasal packs were removed, nasal endoscopy was performed bilaterally. This was for evaluation of both nasal cavities, with the above findings noted. There was no evidence of posterior epistaxis on either side. There was blood staining on the anterior aspect of the right side packing but none on the left. Subsequently after the nasal endoscopy, cauterization of the right anterior septum was performed and controlled the epistaxis. Nasal endoscopy was then completed and the patient tolerated the nasal endoscopy well with no complications. MMODL / IJN: [id number] /
[2019-03-30] MEDS: AMIODARONE 200 MG TAB PO SCH (19:58)
[2019-03-30 23:55] LABS: Glucose,Whole Blood 157 mg/dL (75-99)
[2019-03-31] MEDS: INSULIN ASPART (NovoLOG) 100 UNIT/ML VIAL SQ SCH ×3 (00:01→12:55)
[2019-03-31] MEDS: AMPICILLIN-SULBACTAM 3 GM in SODIUM CHLORIDE 0.9% 100 ML IVPB SCH ×2 (00:01→05:22)
[2019-03-31] MEDS: SODIUM CHLORIDE 0.9% 1,000 ML IV SCH (00:02)
[2019-03-31] MEDS: methylPREDNISolone SOD SUCCI 125 MG/2 ML VIAL IV SCH ×3 (00:22→12:55)
[2019-03-31] MEDS: FUROSEMIDE 100 MG in SODIUM CHLORIDE 0.9% 90 ML IV SCH ×3 (00:22→12:56)
[2019-03-31] MEDS: IPRATROPIUM-ALBUTEROL 3 ML NEB INHALATION SCH ×5 (02:44→19:05)
[2019-03-31 05:20] LABS: Glucose,Whole Blood 177 mg/dL (75-99)
[2019-03-31 05:35] LABS: Anisocytosis Slight; Basophils % (A) 0 %; Eosinophils % (A) 0 %; HCT 35.9 % (39.0-53.0); HGB 10.9 gm/dL (13.0-17.5); Hypochromasia Marked; Lymphocytes # (A) 0.3 k/uL (1.0-4.8); Lymphocytes % (A) 2 %; MCH 29.6 pg (25.0-35.0); MCHC 30.4 g/dL (31.0-37.0); MCV 97.4 fL (80.0-100.0); Macrocytosis Moderate; Mean Platelet Volume 8.5; Monocytes # (A) 0.3 k/uL (0-1.0); Monocytes % (A) 3 %; Neutrophils % (A) 95 %; Poikilocytosis Slight; RBC 3.68 m/uL (4.30-5.90); RDW 19.7 % (11.5-15.5); WBC 11.7 k/uL (3.8-10.6)
[2019-03-31 05:47] LABS: Albumin 2.9 g/dL (3.5-5.0); Bilirubin, Delta 0.6 mg/dL (0.0-0.2); Calcium 8.1 mg/dL (8.4-10.2); Magnesium 2.4 mg/dL (1.6-2.3); Total Bilirubin 0.6 mg/dL (0.2-1.3); Total Protein 5.9 g/dL (6.3-8.2)
[2019-03-31 05:56] LABS: Potassium 2.7 mmol/L (3.5-5.1)
[2019-03-31] MEDS ORDERED: Potassium Replacement Protocol 1 EACH MISC MISCELLANE PRN (06:14)
[2019-03-31] MEDS: POTASSIUM BICARBONATE/CIT AC 20 MEQ TABLET.EFF NG-TUBE SCH ×3 (06:26→09:47)
[2019-03-31] MEDS: POTASSIUM CHLORIDE 20 MEQ in WATER FOR INJECTION 1 100ML.BAG IVPB SCH ×3 (06:26→10:35)
[2019-03-31 06:33] LABS: Polychromasia Present
[2019-03-31 06:36] LABS: Platelet Count 89 k/uL (150-450)
[2019-03-31] MEDS: FORMOTEROL FUMARATE 20 MCG/2 ML NEBU INHALATION SCH ×2 (07:06→19:04)
[2019-03-31] MEDS: BUDESONIDE 1 MG/2 ML NEBU INHALATION SCH ×2 (07:06→19:04)
[2019-03-31] MEDS: AMIODARONE 200 MG TAB PO SCH (08:00)
[2019-03-31] MEDS: ATORVASTATIN 40 MG TAB PO SCH (08:00)
[2019-03-31] MEDS: PANTOPRAZOLE 40 MG/10 ML VIAL IV SCH (08:00)
[2019-03-31] MEDS: METOLAZONE 5 MG TAB PO SCH (08:00)
[2019-03-31] MEDS: CHLORHEXIDINE GLUCONATE 15 ML CUP MUCOUS MEM SCH (08:00)
[2019-03-31] MEDS ORDERED: POTASSIUM CHLORIDE ER 20 MEQ TAB.ER PO SCH (08:00)
[2019-03-31] MEDS: CLOPIDOGREL 75 MG TAB PO SCH (08:00)
[2019-03-31] MEDS: PROPOFOL 1,000 MG in EMPTY BAG 1 BAG IV SCH ×2 (08:09→16:09)
[2019-03-31 08:17] LABS: ABG Base Excess 8.5 mmol/L; ABG HCO3 32 mmol/L (21-25); ABG Oxygen Saturation 98.4 % (94-97); ABG PCO2 44 mmHg (35-45); ABG PH 7.47 (7.35-7.45); ABG PO2 99 mmHg (83-108); ABG TCO2 34 mmol/L (19-24); Allen Test Performed? Yes
--- NOTE | 2019-03-31 09:32 | XR ---
EXAMINATION TYPE: XR chest 1V portable DATE OF EXAM: 03/31/2019 COMPARISON: 03/30/2019 HISTORY: Ventilatory dependent respiratory failure. TECHNIQUE: Single frontal view of the chest is obtained. FINDINGS: There is redemonstration of a retrocardiac opacity and at least trace pleural effusions. I nterstitial edema has worsened in the interim. Endotracheal tube and enteric tube are similar in posi tion. Post CABG changes of the chest and multilead left-sided cardiac device are seen. Right PICC is similar in position. Diffuse osseous demineralization. No sizable pneumothorax. IMPRESSION: Worsening fluid overload with increased interstitial edema and at least trace pleural ef fusions. Retrocardiac opacity that may represent atelectasis, confluent pulmonary edema or pneumonia remains as seen on the prior.
[2019-03-31] MEDS: HYDROmorphone 1 MG/ML 1 ML SYRINGE IVP PRN ×2 (10:27→12:56)
--- NOTE | 2019-03-31 10:40 | P.PN ---
Subjective Progress Note Date: 03/31/19 Principal diagnosis: Acute hypoxic respiratory failure secondary to acute on chronic systolic congestive heart failure and endocarditis. This is a 71-year-old male patient with known history of ischemic cardiomyopathy along with known history of coronary artery disease and previous aortic valve replacement, AVR, and previous coronary artery bypass surgery, who was recently in the hospital between March 01 and 03/26/2019 because of chest pain and non-STEMI. The patient has had previous catheterizations with stenting done in the distal left main as well as the proximal circumflex. He has a chronically totally occluded RCA. As mentioned, the patient was admitted with chest pain or shortness of breath and acute non-STEMI. The patient underwent another cardiac catheterization and the patient was found to have taken stent to the distal left mainstem to proximal circumflex, patent BELTRAN to LAD, chronic totally occluded RCA. His ejection fraction was 20-25% and he had also received biventricular pacing/AICD at that hospitalization. He had a complicated course and had developed endocarditis. He had acute respiratory failure requiring prolonged ventilation. He subsequently recovered and was transferred to a subacute rehabilitation facility. He was brought from that facility to [facility] emergency room with ongoing epistaxis. He required packing. During that evaluation he was found to be in congestive heart failure and was transferred here for further treatment. In route he did receive Ativan for some combativeness and intolerant to oxygen mass. Upon arrival here he was obtunded with gurgling and developed agonal respirations requiring intubation in the ER. Arterial blood gases on 100% FiO2 revealed a pO2 of 171, P CO2 66, pH 7.23. White count 11.2. Hemoglobin 12.4. INR 1.6. Sodium 145. Potassium 5.0. BUN 60. Creatinine 2.12. AST 103, ALT 102, alk phos 273. Troponin 0.049. ProBNP 65,100. He is seen now in the intensive care unit. He is on propofol at 15 mcg/kg/m. He remains intubated on the mechanical ventilator with assist control of 14, tidal volume 500, FiO2 50% and a PEEP of 5. Chest x-ray reveals evidence of congestive heart failure. On today's evaluation of 03/29/2019 I'm seeing this patient for a follow-up. This morning the patient is well sedated and calm and comfortable and he is running on propofol at 10 g per KG per minute. He is going to get a sedation holiday. Meanwhile, the patient is on assist control mode of ventilation. He is currently on assist control of 14 with an FiO2 of 50% with a PEEP of 5 and a tidal volume of 500. The blood gases from this morning shows a pH of 7.44 with a pCO2 of 43 and pO2 100 on the above-mentioned vent setting. Chest x-ray is showing persistent pulmonary edema. The patient is currently on Lasix drip at 10 mg an hour. He is producing excellent urine output in the order of 200 mL an hour. He is in a negative fluid balance. He has extensive edema in the upper and lower extremities bilaterally. His current CVP is running at 12. He is afebrile. He is being treated with Unasyn regarding his ongoing endocarditis. A triple lumen cath was inserted yesterday in the right subclavian and he has a PICC line in his right upper extremity. Repeated blood cultures both central and peripheral will be sent. Otherwise, he is afebrile. He is requiring low-d ose pressors for hemodynamic support. He is currently on norepinephrine infusion running at 2 g per minute. His white cell count is at 9.7. Hemoglobin is down slightly down to 10.7. His creatinine is also stable at 1.9. Troponins are slightly elevated. And the patient has a troponin leak. The patient otherwise has been stable overnight and there has been no other significant events. Patient was reevaluated today on 03/30/2019, he is presently on mechanical ventilation, his ventilator settings are tidal volume of 500, assist control rate of 14 FiO2 is 50% but cut down to 45% and PEEP is 5. ABG showed a pO2 of 109 pCO2 of 43 pH of 7.44. Patient is on propofol at 30 mcg/kg/m, Lasix drip at 10 mg per hour, amiodarone, 0.5 mg. Heparin, on off norepinephrine. Chest x- ray continues to show evidence of congestive heart failure. Urine output is reasonable but not great. Patient is sedated. CBC showed evidence of 10.6 hemoglobin is 10.5. PTT is elevated hence his heparin was placed on hold temporarily. Sodium 146 BUN is 63 creatinine 2.06, being followed by nephrology. His Lasix was increased to 15 mg per hour, and metolazone was added at 5 mg once daily. Nurses were instructed on waking up the patient off propofol, and at least assessing mental status today. Clearly based on his chest x-ray findings, and based on his marginal ABG, patient is not quite ready for any weaning trials. Patient is receiving enteral feeding. Via orogastric tube. Reevaluated today on 03/31/2019, patient remains on mechanical ventilation, intubated, his ventilator settings are tidal volume of 500, assist control rate 14 FiO2 45% and PEEP is 5. Remains on propofol at 10 mcg/kg/m, heparin and he is on Lasix at 15 mg per hour. Chest x-ray continues to show evidence of interstitial edema. Potassium is quite low because of his diuresis and that is being corrected as per protocol. Renal functioning is noted to be slightly worse. And that is being addressed by nephrology. ABG showed a pO2 of 99 he CO2 of 44 pH of 7.47. Sodium is 145 potassium is 2.7 BUN is 70 creatinine 2.23. PTT is therapeutic. ProBNP level remains 14,700 elevated. Chest x-ray continues to show evidence of pulmonary edema. Of course underlying pneumonia is not entirely ruled out but felt to be less likely. Reached family over the phone, and we plan to have a meeting sometime later this afternoon. Objective - Vital Signs Vital signs: Vital Signs Temp 98.8 F 03/31/19 08:00 Pulse 60 03/31/19 10:00 Resp 23 03/31/19 10:00 BP 80/49 03/29/19 20:00 Pulse Ox 97 03/31/19 10:00 Intake & Output 03/30/19 03/31/19 03/31/19 18:59 06:59 18:59 Intake Total 1184.831 8003.267 168 Output Total 1390 3050 640 Balance -206.840 -1796.733 -472 Weight 126.3 kg Intake: IV 426 308 68 Ampicillin-Sulbactam 3 gm 100 100 In Sodium Chloride 0.9% 100 ml @ 200 mls/hr IVPB Q6HR DEANDRA Rx#:[id number] Art line 33 39 9 Sodium Chloride 0.9% 1, 210 130 000 ml @ 20 mls/hr IV . Q24H DEANDRA Rx#:[id number] cefTRIAXone 2 gm In 50 50 Sodium Chloride 0.9% 50 ml @ 100 mls/hr IVPB Q24HR DEANDRA Rx#:[id number] cvp 33 39 9 Intake, IV Titration 315.160 343.267 100 Amount Furosemide 100 mg In 143.333 95.25 Sodium Chloride 0.9% 90 ml @ 15 MG/HR 15 mls/hr IV .Q6H40M DEANDRA Rx#: [id number] Heparin Sod,Pork in 0.45% 71.827 98.017 NaCl 25,000 unit In 0.45 % NaCl 1 250ml.bag @ 7.9 UNITS/KG/HR 9.962 mls/hr IV .Q24H DEANDRA Rx#: [id number] Potassium Chloride 20 meq 50 100 In Water For Injection 1 100ml.bag @ 50 mls/hr IVPB Q2H [facility]ANDRA Rx#: [id number] Propofol 1,000 mg In 100.000 100 Empty Bag 1 bag @ Titrate IV .Q0M DEANDRA Rx#: [id number] Tube Feeding 352 512 Other 90 90 Output: Urine 1390 3050 640 Other: Voiding Method Indwelling Catheter Indwelling Catheter ABP, PAP, CO, CI - Last Documented Arterial Blood Pressure 129/61 - Exam Physical exam revealed sedated 73-year-old gentleman, on mechanical ventilation. HEAD: Normocephalic. Atraumatic. EYES: PERRLA, EOMI, no icterus. NOSE: His nasal packing has been removed, and cauterization was performed by ENT. No evidence of active bleeding. THROAT: Oral endotracheal tube secured in place. No erythema or exudates. No thrush. NECK: No masses, no JVD. Trachea is in midline. No thyromegaly. CHEST: Symmetrical expansion of the chest, crackles at the bases no rhonchi and no wheezes. Left-sided AICD remains in place LUNGS: Crackles and rhonchi at the bases.. CVS: Normal S1 and S2, 2/6 systolic murmur thought the precordium. ABDOMEN: Obese, soft, nontender, no megaly, no rebound, no guarding. SPINE: No scoliosis or deformity SKIN: Excoriation on the coccyx. CENTRAL NERVOUS SYSTEM: Arousable, opens eyes on verbal commands, does not follow any other instructions, seems to shake his head continuously once a arousable. EXTREMITIES: There is 1-2+ peripheral edema. No clubbing, no cyanosis. Peripheral pulses are intact. - Labs CBC & Chem 7: 10/22/19 05:10 03/31/19 05:10 Labs: Abnormal Lab Results - Last 24 Hours (Table) 03/30/19 03/30/19 03/30/19 Range/Units 11:39 14:15 17:37 WBC (3.8-10.6) k/uL RBC (4.30-5.90) m/uL Hgb (13.0-17.5) gm/dL Hct (39.0-53.0) % MCHC (31.0-37.0) g/dL RDW (11.5-15.5) % Plt Count (150-450) k/uL Neutrophils # (1.3-7.7) k/uL Lymphocytes # (1.0-4.8) k/uL APTT 94.8 H (22.0-30.0) sec ABG pH (7.35-7.45) ABG HCO3 (21-25) mmol/L ABG Total CO2 (19-24) mmol/L ABG O2 Saturation (94-97) % Potassium (3.5-5.1) mmol/L Carbon Dioxide (22-30) mmol/L BUN (9-20) mg/dL Creatinine (0.66-1.25) mg/dL Glucose (74-99) mg/dL POC Glucose (mg/dL) 155 H 137 H (75-99) mg/dL Calcium (8.4-10.2) mg/dL Magnesium (1.6-2.3) mg/dL Delta Bilirubin (0.0-0.2) mg/dL Alkaline Phosphatase (38-126) U/L Total Protein (6.3-8.2) g/dL Albumin (3.5-5.0) g/dL 03/30/19 03/30/19 03/31/19 Range/Units 21:00 23:54 05:10 WBC 11.7 H (3.8-10.6) k/uL RBC 3.68 L (4.30-5.90) m/uL Hgb 10.9 L (13.0-17.5) gm/dL Hct 35.9 L (39.0-53.0) % MCHC 30.4 L (31.0-37.0) g/dL RDW 19.7 H (11.5-15.5) % Plt Count 89 L (150-450) k/uL Neutrophils # 11.0 H (1.3-7.7) k/uL Lymphocytes # 0.3 L (1.0-4.8) k/uL APTT 88.0 H (22.0-30.0) sec ABG pH (7.35-7.45) ABG HCO3 (21-25) mmol/L ABG Total CO2 (19-24) mmol/L ABG O2 Saturation (94-97) % Potassium (3.5-5.1) mmol/L Carbon Dioxide (22-30) mmol/L BUN (9-20) mg/dL Creatinine (0.66-1.25) mg/dL Glucose (74-99) mg/dL POC Glucose (mg/dL) 157 H (75-99) mg/dL Calcium (8.4-10.2) mg/dL Magnesium (1.6-2.3) mg/dL Delta Bilirubin (0.0-0.2) mg/dL Alkaline Phosphatase (38-126) U/L Total Protein (6.3-8.2) g/dL Albumin (3.5-5.0) g/dL 03/31/19 03/31/19 03/31/19 Range/Units 05:10 05:10 05:18 WBC (3.8-10.6) k/uL RBC (4.30-5.90) m/uL Hgb (13.0-17.5) gm/dL Hct (39.0-53.0) % MCHC (31.0-37.0) g/dL RDW (11.5-15.5) % Plt Count (150-450) k/uL Neutrophils # (1.3-7.7) k/uL Lymphocytes # (1.0-4.8) k/uL APTT 40.8 H (22.0-30.0) sec ABG pH (7.35-7.45) ABG HCO3 (21-25) mmol/L ABG Total CO2 (19-24) mmol/L ABG O2 Saturation (94-97) % Potassium 2.7 L* (3.5-5.1) mmol/L Carbon Dioxide 31 H (22-30) mmol/L BUN 70 H (9-20) mg/dL Creatinine 2.23 H (0.66-1.25) mg/dL Glucose 172 H (74-99) mg/dL POC Glucose (mg/dL) 177 H (75-99) mg/dL Calcium 8.1 L (8.4-10.2) mg/dL Magnesium 2.4 H (1.6-2.3) mg/dL Delta Bilirubin 0.6 H (0.0-0.2) mg/dL Alkaline Phosphatase 166 H (38-126) U/L Total Protein 5.9 L (6.3-8.2) g/dL Albumin 2.9 L (3.5-5.0) g/dL 03/31/19 Range/Units 08:15 WBC (3.8-10.6) k/uL RBC (4.30-5.90) m/uL Hgb (13.0-17.5) gm/dL Hct (39.0-53.0) % MCHC (31.0-37.0) g/dL RDW (11.5-15.5) % Plt Count (150-450) k/uL Neutrophils # (1.3-7.7) k/uL Lymphocytes # (1.0-4.8) k/uL APTT (22.0-30.0) sec ABG pH 7.47 H (7.35-7.45) ABG HCO3 32 H (21-25) mmol/L ABG Total CO2 34 H (19-24) mmol/L ABG O2 Saturation 98.4 H (94-97) % Potassium (3.5-5.1) mmol/L Carbon Dioxide (22-30) mmol/L BUN (9-20) mg/dL Creatinine (0.66-1.25) mg/dL Glucose (74-99) mg/dL POC Glucose (mg/dL) (75-99) mg/dL Calcium (8.4-10.2) mg/dL Magnesium (1.6-2.3) mg/dL Delta Bilirubin (0.0-0.2) mg/dL Alkaline Phosphatase (38-126) U/L Total Protein (6.3-8.2) g/dL Albumin (3.5-5.0) g/dL Microbiology - Last 24 Hours (Table) 03/29/19 11:40 Blood Culture - Preliminary Blood No Growth after 24 hours 03/28/19 09:11 Gram Stain - Final Sputum Sputum Culture - Final Amarilys albicans 03/29/19 09:05 Blood Culture - Preliminary Blood No Growth after 24 hours Assessment and Plan Assessment: Impression: Acute hypoxic respiratory failure secondary to acute on chronic systolic congestive heart failure Recent history of enterococcal infective endocarditis. 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 Epistaxis status post packing of the right nostril. ENT was consulted. History of hypertension, hyperlipidemia, COPD, Acute kidney injury secondary to sepsis and possibly cardiorenal. Poor overall functional and medical debility. Recommendation: Continue ventilatory support, no plans to wean the patient at this point, I plan to discuss his CODE STATUS with the family before we proceed to weaning and extubation and I would recommend no reintubation and the patient fails extubation. Otherwise I will strongly recommend tracheostomy. This will be discussed today with family members. Continue hemodynamic support presently off norepinephrine. Continue nutritional support, continue enteral feeding. Continue antibiotics as per infectious disease on the case. Continue Lasix drip at 15 mg per hour, monitor electrolytes, and correct low potassium as per protocol. Continue GI and DVT prophylaxis. Continued sedation interruption on a daily basis and assessment of mental status . Continue anticoagulations , as long as there is no evidence of nasal bleeding./Epistaxis. Continue bronchodilators. Repeat echocardiogram continues to show severe LV dysfunction with ejection f raction of 25% Continue to monitor in the ICU prognosis is extremely poor and guarded, plan to have family meeting today, and we'll touch bases on his CODE STATUS, possibly even consider comfort care measures. And will also touch bases on the fact if the patient is to be extubated whether the family would be agreeable not to be reintubated in case if he fails extubation critical care time is 40 minutes Time with Patient: Greater than 30
--- NOTE | 2019-03-31 11:34 | P.PN ---
Subjective Patient is seen in follow-up for acute kidney injury. Patient's currently intubated. He is maintained on Lasix drip at 15 mL an hour. Edema is im proving. Renal function a little worse which is due to diuresis. Vital signs are stable. General: The patient appeared well nourished and normally developed. HEENT: Head exam is unremarkable. Neck is without jugular venous distension. Intubated. LUNGS: Breath sounds decreased. HEART: Rate and Rhythm are regular. First and second heart sounds normal. No murmurs, rubs or gallops. ABDOMEN: Abdominal exam reveals normal bowel sounds. Non-tender and non- distended. No evidence of peritonitis. EXTREMITITES: 2+ edema. Objective - Vital Signs Vital signs: Vital Signs Temp 98.8 F 03/31/19 08:00 Pulse 60 03/31/19 11:20 Resp 15 03/31/19 11:00 BP 80/49 03/29/19 20:00 Pulse Ox 95 03/31/19 11:00 Intake & Output 03/30/19 03/31/19 03/31/19 18:59 06:59 18:59 Intake Total 5071.728 7159.267 406 Output Total 1390 3050 860 Balance -206.840 -1796.733 -454 Weight 126.3 kg Intake: IV 426 308 74 Ampicillin-Sulbactam 3 gm 100 100 In Sodium Chloride 0.9% 100 ml @ 200 mls/hr IVPB Q6HR [facility] Rx#:[id number] Art line 33 39 12 Sodium Chloride 0.9% 1, 210 130 000 ml @ 20 mls/hr IV . Q24H [facility] Rx#:[id number] cefTRIAXone 2 gm In 50 50 Sodium Chloride 0.9% 50 ml @ 100 mls/hr IVPB Q24HR [facility] Rx#:[id number] cvp 33 39 12 Intake, IV Titration 315.160 343.267 300 Amount Furosemide 100 mg In 143.333 95.25 Sodium Chloride 0.9% 90 ml @ 15 MG/HR 15 mls/hr IV .Q6H40M [facility] Rx#: [id number] Heparin Sod,Pork in 0.45% 71.827 98.017 NaCl 25,000 unit In 0.45 % NaCl 1 250ml.bag @ 7.9 UNITS/KG/HR 9.962 mls/hr IV .Q24H [facility] Rx#: [id number] Potassium Chloride 20 meq 50 300 In Water For Injection 1 100ml.bag @ 50 mls/hr IVPB Q2H [facility] Rx#: [id number] Propofol 1,000 mg In 100.000 100 Empty Bag 1 bag @ Titrate IV .Q0M [facility]AN[facility]A Rx#: [id number] Tube Feeding 352 512 32 Other 90 90 Output: Urine 1390 3050 860 Other: Voiding Method Indwelling Catheter Indwelling Catheter Indwelling Catheter ABP, PAP, CO, CI - Last Documented Arterial Blood Pressure 106/56 - Labs CBC & Chem 7: 03/31/19 05:10 03/31/19 05:10 Labs: Abnormal Lab Results - Last 24 Hours (Table) 03/30/19 03/30/19 03/30/19 Range/Units 11:39 14:15 17:37 WBC (3.8-10.6) k/uL RBC (4.30-5.90) m/uL Hgb (13.0-17.5) gm/dL Hct (39.0-53.0) % MCHC (31.0-37.0) g/dL RDW (11.5-15.5) % Plt Count (150-450) k/uL Neutrophils # (1.3-7.7) k/uL Lymphocytes # (1.0-4.8) k/uL APTT 94.8 H (22.0-30.0) sec ABG pH (7.35-7.45) ABG HCO3 (21-25) mmol/L ABG Total CO2 (19-24) mmol/L ABG O2 Saturation (94-97) % Potassium (3.5-5.1) mmol/L Carbon Dioxide (22-30) mmol/L BUN (9-20) mg/dL Creatinine (0.66-1.25) mg/dL Glucose (74-99) mg/dL POC Glucose (mg/dL) 155 H 137 H (75-99) mg/dL Calcium (8.4-10.2) mg/dL Magnesium (1.6-2.3) mg/dL Delta Bilirubin (0.0-0.2) mg/dL Alkaline Phosphatase (38-126) U/L Total Protein (6.3-8.2) g/dL Albumin (3.5-5.0) g/dL 03/30/19 03/30/19 03/31/19 Range/Units 21:00 23:54 05:10 WBC 11.7 H (3.8-10.6) k/uL RBC 3.68 L (4.30-5.90) m/uL Hgb 10.9 L (13.0-17.5) gm/dL Hct 35.9 L (39.0-53.0) % MCHC 30.4 L (31.0-37.0) g/dL RDW 19.7 H (11.5-15.5) % Plt Count 89 L (150-450) k/uL Neutrophils # 11.0 H (1.3-7.7) k/uL Lymphocytes # 0.3 L (1.0-4.8) k/uL APTT 88.0 H (22.0-30.0) sec ABG pH (7.35-7.45) ABG HCO3 (21-25) mmol/L ABG Total CO2 (19-24) mmol/L ABG O2 Saturation (94-97) % Potassium (3.5-5.1) mmol/L Carbon Dioxide (22-30) mmol/L BUN (9-20) mg/dL Creatinine (0.66-1.25) mg/dL Glucose (74-99) mg/dL POC Glucose (mg/dL) 157 H (75-99) mg/dL Calcium (8.4-10.2) mg/dL Magnesium (1.6-2.3) mg/dL Delta Bilirubin (0.0-0.2) mg/dL Alkaline Phosphatase (38-126) U/L Total Protein (6.3-8.2) g/dL Albumin (3.5-5.0) g/dL 03/31/19 03/31/19 03/31/19 Range/Units 05:10 05:10 05:18 WBC (3.8-10.6) k/uL RBC (4.30-5.90) m/uL Hgb (13.0-17.5) gm/dL Hct (39.0-53.0) % MCHC (31.0-37.0) g/dL RDW (11.5-15.5) % Plt Count (150-450) k/uL Neutrophils # (1.3-7.7) k/uL Lymphocytes # (1.0-4.8) k/uL APTT 40.8 H (22.0-30.0) sec ABG pH (7.35-7.45) ABG HCO3 (21-25) mmol/L ABG Total CO2 (19-24) mmol/L ABG O2 Saturation (94-97) % Potassium 2.7 L* (3.5-5.1) mmol/L Carbon Dioxide 31 H (22-30) mmol/L BUN 70 H (9-20) mg/dL Creatinine 2.23 H (0.66-1.25) mg/dL Glucose 172 H (74-99) mg/dL POC Glucose (mg/dL) 177 H (75-99) mg/dL Calcium 8.1 L (8.4-10.2) mg/dL Magnesium 2.4 H (1.6-2.3) mg/dL Delta Bilirubin 0.6 H (0.0-0.2) mg/dL Alkaline Phosphatase 166 H (38-126) U/L Total Protein 5.9 L (6.3-8.2) g/dL Albumin 2.9 L (3.5-5.0) g/dL 03/31/19 Range/Units 08:15 WBC (3.8-10.6) k/uL RBC (4.30-5.90) m/uL Hgb (13.0-17.5) gm/dL Hct (39.0-53.0) % MCHC (31.0-37.0) g/dL RDW (11.5-15.5) % Plt Count (150-450) k/uL Neutrophils # (1.3-7.7) k/uL Lymphocytes # (1.0-4.8) k/uL APTT (22.0-30.0) sec ABG pH 7.47 H (7.35-7.45) ABG HCO3 32 H (21-25) mmol/L ABG Total CO2 34 H (19-24) mmol/L ABG O2 Saturation 98.4 H (94-97) % Potassium (3.5-5.1) mmol/L Carbon Dioxide (22-30) mmol/L BUN (9-20) mg/dL Creatinine (0.66-1.25) mg/dL Glucose (74-99) mg/dL POC Glucose (mg/dL) (75-99) mg/dL Calcium (8.4-10.2) mg/dL Magnesium (1.6-2.3) mg/dL Delta Bilirubin (0.0-0.2) mg/dL Alkaline Phosphatase (38-126) U/L Total Protein (6.3-8.2) g/dL Albumin (3.5-5.0) g/dL Microbiology - Last 24 Hours (Table) 03/29/19 11:40 Blood Culture - Preliminary Blood No Growth after 24 hours 03/28/19 09:11 Gram Stain - Final Sputum Sputum Culture - Final Amarilys albicans 03/29/19 09:05 Blood Culture - Preliminary Blood No Growth after 24 hours Assessment and Plan Plan: assessment: 1. Acute kidney injury secondary to ATN secondary to sepsis and cardiorenal syndrome. Renal function a little worse which is due to diuresis. 2. Acute hypoxic respiratory failure. 3. Volume overload. Improving with diuresis. 4. Mild hypernatremia secondary to diuresis and lack of oral water intake. Stable. 5. Atrial tachycardia maintained on heparin and oral amiodarone. Cardiology following. 6. Acute on chronic systolic CHF with ejection fraction of 20-25% with moderate to severe mitral regurgitation. 7. Endocarditis maintained on antibiotics. 8. Hypokalemia secondary to diuresis. Plan: Maintain Lasix drip at 15 mL an hour. Maintain metolazone 5 mg once daily. Avoid nephrotoxins. Potassium being replaced. Continue to monitor renal function and urine output.
[2019-03-31 11:56] LABS: Glucose,Whole Blood 142 mg/dL (75-99)
--- NOTE | 2019-03-31 12:59 | P.PN ---
Subjective This is Chanel Leblanc PA-C dictating a progress note on this patient The patient was interviewed and examined by me as well as by Dr. Ho Case discussed with Dr. 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 LISSET in February showed echodensity attached to the LVOT side of aortic bioprosthetic valve, on IV antibiotics, repeat echo showed normally functioning bioprosthetic valve, cannot exclude vegetation Nosebleed requiring nasal packing, no further signs of bleeding Paroxysmal atrial fibrillation/atrial tachycardia with RVR biventricular ventricular pacing, currently in sinus rhythm with biventricular pacing BEATRIZ, worsening renal function, nephrology following PLAN: continue oral amiodarone 200 mg twice a day Continue diuresis with Lasix per nephrology We'll reinitiate beta russell therapy when blood pressure improves, he is currently requiring pressors Prognosis poor, Dr. Nuñez will be discussing code status later with the family HPI/interval history Patient is a 73-year-old male with a history of ischemic cardiomyopathy, EF around 20%, CAD status post CABG and recent stenting, valvular heart disease status post aortic valve replacement who is transferred here from [facility]. He had a recent complicated hospitalization where he ended up being diagnosed with sepsis and endocarditis. He presented to [facility] with a nosebleed but was found to be in an acute CHF exacerbation and was transferred here. In the emergency department he developed worsening respiratory distress and required sedation and intubation. He is diuresing on a Lasix drip. repeat echo cannot exclude vegetation. Telemetry reveals sinus rhythm with biventricular pacing. Patient seen and examined in the ICU, remains intubated. Sedation has been turned down. Patient has been opening his eyes a little and shaking his head, not following commands. Family will be coming in later today to discuss CODE STATUS with Dr. Nuñez. EXAMINATION Temperature 98.2F, pulse 65, respirations 14, blood pressure 112/51, oxygen saturation 96% on mechanical ventilation Patient seen and examined in the ICU, intubated, groggy, closing eyes and shaking his head, appears uncomfortable equal breath sounds bilaterally Heart is regular, systolic murmur noted He has 1+ pitting edema in his lower extremities, REVIEW OF LABS, ECG WBC 11.7, hemoglobin 10.9, platelets 89, potassium 2.7, BUN 70, creatinine 2.23, Echocardiogram showed EF 20-25%, normally functioning bioprosthetic valve, cannot exclude vegetation, Objective - Vital Signs Vital signs: Vital Signs Temp 98.2 F 03/31/19 12:00 Pulse 65 03/31/19 12:00 Resp 14 03/31/19 12:00 BP 80/49 03/29/19 20:00 Pulse Ox 96 03/31/19 12:00 Intake & Output 03/30/19 03/31/19 03/31/19 18:59 06:59 18:59 Intake Total 1848.633 5854.267 412 Output Total 1390 3050 1125 Balance -206.840 -1796.733 -713 Weight 126.3 kg Intake: IV 426 308 80 Ampicillin-Sulbactam 3 gm 100 100 In Sodium Chloride 0.9% 100 ml @ 200 mls/hr IVPB Q6HR [facility] Rx#:[id number] Art line 33 39 15 Sodium Chloride 0.9% 1, 210 130 000 ml @ 20 mls/hr IV . Q24H [facility] Rx#:[id number] cefTRIAXone 2 gm In 50 50 Sodium Chloride 0.9% 50 ml @ 100 mls/hr IVPB Q24HR [facility] Rx#:[id number] cvp 33 39 15 Intake, IV Titration 315.160 343.267 300 Amount Furosemide 100 mg In 143.333 95.25 Sodium Chloride 0.9% 90 ml @ 15 MG/HR 15 mls/hr IV .Q6H40M [facility] Rx#: [id number] Heparin Sod,Pork in 0.45% 71.827 98.017 NaCl 25,000 unit In 0.45 % NaCl 1 250ml.bag @ 7.9 UNITS/KG/HR 9.962 mls/hr IV .Q24H [facility] Rx#: [id number] Potassium Chloride 20 meq 50 300 In Water For Injection 1 100ml.bag @ 50 mls/hr IVPB Q2H [facility] Rx#: [id number] Propofol 1,000 mg In 100.000 100 Empty Bag 1 bag @ Titrate IV .Q0M [facility] Rx#: [id number] Tube Feeding 352 512 32 Other 90 90 Output: Urine 1390 3050 1125 Other: Voiding Method Indwelling Catheter Indwelling Catheter Indwelling Catheter ABP, PAP, CO, CI - Last Documented Arterial Blood Pressure 112/51 - Labs CBC & Chem 7: 03/31/19 05:10 03/31/19 05:10 Labs: Abnormal Lab Results - Last 24 Hours (Table) 03/30/19 03/30/19 03/30/19 Range/Units 14:15 17:37 21:00 WBC (3.8-10.6) k/uL RBC (4.30-5.90) m/uL Hgb (13.0-17.5) gm/dL Hct (39.0-53.0) % MCHC (31.0-37.0) g/dL RDW (11.5-15.5) % Plt Count (150-450) k/uL Neutrophils # (1.3-7.7) k/uL Lymphocytes # (1.0-4.8) k/uL APTT 94.8 H 88.0 H (22.0-30.0) sec ABG pH (7.35-7.45) ABG HCO3 (21-25) mmol/L ABG Total CO2 (19-24) mmol/L ABG O2 Saturation (94-97) % Potassium (3.5-5.1) mmol/L Carbon Dioxide (22-30) mmol/L BUN (9-20) mg/dL Creatinine (0.66-1.25) mg/dL Glucose (74-99) mg/dL POC Glucose (mg/dL) 137 H (75-99) mg/dL Calcium (8.4-10.2) mg/dL Magnesium (1.6-2.3) mg/dL Delta Bilirubin (0.0-0.2) mg/dL Alkaline Phosphatase (38-126) U/L Total Protein (6.3-8.2) g/dL Albumin (3.5-5.0) g/dL 03/30/19 03/31/19 03/31/19 Range/Units 23:54 05:10 05:10 WBC 11.7 H (3.8-10.6) k/uL RBC 3.68 L (4.30-5.90) m/uL Hgb 10.9 L (13.0-17.5) gm/dL Hct 35.9 L (39.0-53.0) % MCHC 30.4 L (31.0-37.0) g/dL RDW 19.7 H (11.5-15.5) % Plt Count 89 L (150-450) k/uL Neutrophils # 11.0 H (1.3-7.7) k/uL Lymphocytes # 0.3 L (1.0-4.8) k/uL APTT (22.0-30.0) sec ABG pH (7.35-7.45) ABG HCO3 (21-25) mmol/L ABG Total CO2 (19-24) mmol/L ABG O2 Saturation (94-97) % Potassium 2.7 L* (3.5-5.1) mmol/L Carbon Dioxide 31 H (22-30) mmol/L BUN 70 H (9-20) mg/dL Creatinine 2.23 H (0.66-1.25) mg/dL Glucose 172 H (74-99) mg/dL POC Glucose (mg/dL) 157 H (75-99) mg/dL Calcium 8.1 L (8.4-10.2) mg/dL Magnesium 2.4 H (1.6-2.3) mg/dL Delta Bilirubin 0.6 H (0.0-0.2) mg/dL Alkaline Phosphatase 166 H (38-126) U/L Total Protein 5.9 L (6.3-8.2) g/dL Albumin 2.9 L (3.5-5.0) g/dL 03/31/19 03/31/19 03/31/19 Range/Units 05:10 05:18 08:15 WBC (3.8-10.6) k/uL RBC (4.30-5.90) m/uL Hgb (13.0-17.5) gm/dL Hct (39.0-53.0) % MCHC (31.0-37.0) g/dL RDW (11.5-15.5) % Plt Count (150-450) k/uL Neutrophils # (1.3-7.7) k/uL Lymphocytes # (1.0-4.8) k/uL APTT 40.8 H (22.0-30.0) sec ABG pH 7.47 H (7.35-7.45) ABG HCO3 32 H (21-25) mmol/L ABG Total CO2 34 H (19-24) mmol/L ABG O2 Saturation 98.4 H (94-97) % Potassium (3.5-5.1) mmol/L Carbon Dioxide (22-30) mmol/L BUN (9-20) mg/dL Creatinine (0.66-1.25) mg/dL Glucose (74-99) mg/dL POC Glucose (mg/dL) 177 H (75-99) mg/dL Calcium (8.4-10.2) mg/dL Magnesium (1.6-2.3) mg/dL Delta Bilirubin (0.0-0.2) mg/dL Alkaline Phosphatase (38-126) U/L Total Protein (6.3-8.2) g/dL Albumin (3.5-5.0) g/dL 03/31/19 Range/Units 11:54 WBC (3.8-10.6) k/uL RBC (4.30-5.90) m/uL Hgb (13.0-17.5) gm/dL Hct (39.0-53.0) % MCHC (31.0-37.0) g/dL RDW (11.5-15.5) % Plt Count (150-450) k/uL Neutrophils # (1.3-7.7) k/uL Lymphocytes # (1.0-4.8) k/uL APTT (22.0-30.0) sec ABG pH (7.35-7.45) ABG HCO3 (21-25) mmol/L ABG Total CO2 (19-24) mmol/L ABG O2 Saturation (94-97) % Potassium (3.5-5.1) mmol/L Carbon Dioxide (22-30) mmol/L BUN (9-20) mg/dL Creatinine (0.66-1.25) mg/dL Glucose (74-99) mg/dL POC Glucose (mg/dL) 142 H (75-99) mg/dL Calcium (8.4-10.2) mg/dL Magnesium (1.6-2.3) mg/dL Delta Bilirubin (0.0-0.2) mg/dL Alkaline Phosphatase (38-126) U/L Total Protein (6.3-8.2) g/dL Albumin (3.5-5.0) g/dL Microbiology - Last 24 Hours (Table) 03/29/19 09:05 Blood Culture - Preliminary Blood No Growth after 48 hours 03/29/19 11:40 Blood Culture - Preliminary Blood No Growth after 24 hours 03/28/19 09:11 Gram Stain - Final Sputum Sputum Culture - Final Amarilys albicans
[2019-03-31] MEDS: NOREPINEPHRINE 32 MG in SODIUM CHLORIDE 0.9% 218 ML IV SCH (14:22)
--- NOTE | 2019-03-31 14:30 | P.PN ---
Subjective From the records 71-year-old male patient with known history of ischemic cardiomyopathy along with known history of coronary artery disease and previous aortic valve replacement, AVR, and previous coronary artery bypass surgery, who was recently in the hospital between March 01 and 03/26/2019 because of chest pain and non-STEMI. patient was discharged to a subacute rehabilitation facility. He was brought from that facility to [place] emergency room with ongoing epistaxis. He required packing. During that evaluation he was found to be in congestive heart failure and was transferred here for further treatment. In route he did receive Ativan for some combativeness and intolerant to oxygen mass. Upon arrival here he was obtunded with gurgling and developed agonal respirations requiring intubation in the ER. 03/29/2019 Patient is sedated and calm and comfortable. He is going to get a sedation holiday. Meanwhile, the patient is on assist control mode of ventilation. Chest x-ray is showing persistent pulmonary edema. The patient is currently on Lasix drip at 10 mg an hour. He is in a negative fluid balance. He has extensive edema in the upper and lower extremities bilaterally. He is afebrile. He is being treated with Unasyn regarding his ongoing endocarditis. A triple lumen cath was inserted yesterday in the right subclavian and he has a PICC line in his right upper extremity. Repeated blood cultures were sent. Otherwise, he is afebrile. He is requiring low-dose pressors for hemodynamic support. He is currently on norepinephrine infusion running at 2 g per minute. His white cell count is at 9.7. Hemoglobin is down slightly down to 10.7. His creatinine is also stable at 1.9. Troponins are slightly elevated; poss troponin leak. The patient otherwise has been stable overnight and there has been no other significant events. Subjective: 03/30/2019 This is the first time taking care of the patient during this admission however the patient is known to me from last admission. Originally he was sent to [facility] from rehab for epistaxis, found to have heart failure and he was symptomatic N hospital, and doubly he got Ativan for agitation. Patient got intubated in the emergency room and currently he is in the ICU on sedation and mechanical ventilation. Patient cannot provide information which were taken from staff and medical records. Patient of pressors this morning he needed only small dose last night, currently his blood pressure is a stable at 105/48 with heart rate of 53, he is on PEEP of 5 and FiO2 of 50%. Distal on Lasix drip for leg edema and making good urine output. Patient remains on heparin drip, on antibiotics of Rocephin and Unasyn as per ID recommendation from last time for his SBE. Also he is on aspirin and Plavix and cartilage team R following the case very closely As per staff, daughter and talked to bedside nurse and she is considering comfort care especially if no improvement within 2-3 days Regardless the prognosis for short-term and long-term is poor and guarded 03/31/2019 Patient maintenance in the ICU intubated and sedated. His total Lasix drip at 15/h also on heparin drip and Solu-Medrol. Patient continue on Unasyn ceftriaxone as per ID recommendation. Patient continue on amiodarone orally. Patient's wound closely by pulmonary/critical care team. Family for considering comfort measures. Prognosis remains poor Discussed with staff Review of system: N/a Objective - Vital Signs Vital signs: Vital Signs Temp 98.2 F 03/31/19 12:00 Pulse 55 L 03/31/19 14:00 Resp 15 03/31/19 14:00 BP 80/49 03/29/19 20:00 Pulse Ox 94 L 03/31/19 14:00 Intake & Output 03/30/19 03/31/19 03/31/19 18:59 06:59 18:59 Intake Total 7043.759 9319.267 753.202 Output Total 1390 3050 1625 Balance -206.840 -1796.733 -871.798 Weight 126.3 kg Intake: IV 426 308 132 Ampicillin-Sulbactam 3 gm 100 100 In Sodium Chloride 0.9% 100 ml @ 200 mls/hr IVPB Q6HR [facility] Rx#:[id number] Art line 33 39 21 Sodium Chloride 0.9% 1, 210 130 40 000 ml @ 20 mls/hr IV . Q24H [facility] Rx#:[id number] cefTRIAXone 2 gm In 50 50 Sodium Chloride 0.9% 50 ml @ 100 mls/hr IVPB Q24HR [facility] Rx#:[id number] cvp 33 39 21 Intake, IV Titration 315.160 343.267 557.202 Amount Furosemide 100 mg In 143.333 95.25 93.25 Sodium Chloride 0.9% 90 ml @ 15 MG/HR 15 mls/hr IV .Q6H40M [facility] Rx#: [id number] Heparin Sod,Pork in 0.45% 71.827 98.017 63.952 NaCl 25,000 unit In 0.45 % NaCl 1 250ml.bag @ 7.9 UNITS/KG/HR 9.962 mls/hr IV .Q24H [facility] Rx#: [id number] Norepinephrine 32 mg In 0 Sodium Chloride 0.9% 218 ml @ 0.05 MCG/KG/MIN 3. 051 mls/hr IV .Q24H [facility] Rx#:[id number] Potassium Chloride 20 meq 50 300 In Water For Injection 1 100ml.bag @ 50 mls/hr IVPB Q2H [facility] Rx#: [id number] Propofol 1,000 mg In 100.000 100 100 Empty Bag 1 bag @ Titrate IV .Q0M [facility] Rx#: [id number] Tube Feeding 352 512 64 Other 90 90 Output: Urine 1390 3050 1625 Other: Voiding Method Indwelling Catheter Indwelling Catheter Indwelling Catheter ABP, PAP, CO, CI - Last Documented Arterial Blood Pressure 95/44 - Exam -GENERAL: The patient is intubated and sedated HEENT: Pupils are round and equally reacting to light. EOMI. No scleral icterus. No conjunctival pallor. Normocephalic, atraumatic. No pharyngeal erythema. No thyromegaly. CARDIOVASCULAR: S1 and S2 present. No murmurs, rubs, or gallops. PULMONARY: Chest is clear to auscultation, no wheezing or crackles. -ABDOMEN: Soft, nontender, nondistended, normoactive bowel sounds. No palpable organomegaly. Diaz catheter is in place with good urine output MUSCULOSKELETAL: No joint swelling or deformity. EXTREMITIES: No cyanosis, clubbing, or pedal edema. NEUROLOGICAL: Gross neurological examination did not reveal any focal deficits. -SKIN: No rashes. no petechiae. Multiple bruises in the upper extremity - Labs CBC & Chem 7: 03/31/19 05:10 03/31/19 05:10 Labs: Abnormal Lab Results - Last 24 Hours (Table) 03/30/19 03/30/19 03/30/19 Range/Units 14:15 17:37 21:00 WBC (3.8-10.6) k/uL RBC (4.30-5.90) m/uL Hgb (13.0-17.5) gm/dL Hct (39.0-53.0) % MCHC (31.0-37.0) g/dL RDW (11.5-15.5) % Plt Count (150-450) k/uL Neutrophils # (1.3-7.7) k/uL Lymphocytes # (1.0-4.8) k/uL APTT 94.8 H 88.0 H (22.0-30.0) sec ABG pH (7.35-7.45) ABG HCO3 (21-25) mmol/L ABG Total CO2 (19-24) mmol/L ABG O2 Saturation (94-97) % Potassium (3.5-5.1) mmol/L Carbon Dioxide (22-30) mmol/L BUN (9-20) mg/dL Creatinine (0.66-1.25) mg/dL Glucose (74-99) mg/dL POC Glucose (mg/dL) 137 H (75-99) mg/dL Calcium (8.4-10.2) mg/dL Magnesium (1.6-2.3) mg/dL Delta Bilirubin (0.0-0.2) mg/dL Alkaline Phosphatase (38-126) U/L Total Protein (6.3-8.2) g/dL Albumin (3.5-5.0) g/dL 03/30/19 03/31/19 03/31/19 Range/Units 23:54 05:10 05:10 WBC 11.7 H (3.8-10.6) k/uL RBC 3.68 L (4.30-5.90) m/uL Hgb 10.9 L (13.0-17.5) gm/dL Hct 35.9 L (39.0-53.0) % MCHC 30.4 L (31.0-37.0) g/dL RDW 19.7 H (11.5-15.5) % Plt Count 89 L (150-450) k/uL Neutrophils # 11.0 H (1.3-7.7) k/uL Lymphocytes # 0.3 L (1.0-4.8) k/uL APTT (22.0-30.0) sec ABG pH (7.35-7.45) ABG HCO3 (21-25) mmol/L ABG Total CO2 (19-24) mmol/L ABG O2 Saturation (94-97) % Potassium 2.7 L* (3.5-5.1) mmol/L Carbon Dioxide 31 H (22-30) mmol/L BUN 70 H (9-20) mg/dL Creatinine 2.23 H (0.66-1.25) mg/dL Glucose 172 H (74-99) mg/dL POC Glucose (mg/dL) 157 H (75-99) mg/dL Calcium 8.1 L (8.4-10.2) mg/dL Magnesium 2.4 H (1.6-2.3) mg/dL Delta Bilirubin 0.6 H (0.0-0.2) mg/dL Alkaline Phosphatase 166 H (38-126) U/L Total Protein 5.9 L (6.3-8.2) g/dL Albumin 2.9 L (3.5-5.0) g/dL 03/31/19 03/31/19 03/31/19 Range/Units 05:10 05:18 08:15 WBC (3.8-10.6) k/uL RBC (4.30-5.90) m/uL Hgb (13.0-17.5) gm/dL Hct (39.0-53.0) % MCHC (31.0-37.0) g/dL RDW (11.5-15.5) % Plt Count (150-450) k/uL Neutrophils # (1.3-7.7) k/uL Lymphocytes # (1.0-4.8) k/uL APTT 40.8 H (22.0-30.0) sec ABG pH 7.47 H (7.35-7.45) ABG HCO3 32 H (21-25) mmol/L ABG Total CO2 34 H (19-24) mmol/L ABG O2 Saturation 98.4 H (94-97) % Potassium (3.5-5.1) mmol/L Carbon Dioxide (22-30) mmol/L BUN (9-20) mg/dL Creatinine (0.66-1.25) mg/dL Glucose (74-99) mg/dL POC Glucose (mg/dL) 177 H (75-99) mg/dL Calcium (8.4-10.2) mg/dL Magnesium (1.6-2.3) mg/dL Delta Bilirubin (0.0-0.2) mg/dL Alkaline Phosphatase (38-126) U/L Total Protein (6.3-8.2) g/dL Albumin (3.5-5.0) g/dL 03/31/19 03/31/19 Range/Units 11:54 13:04 WBC (3.8-10.6) k/uL RBC (4.30-5.90) m/uL Hgb (13.0-17.5) gm/dL Hct (39.0-53.0) % MCHC (31.0-37.0) g/dL RDW (11.5-15.5) % Plt Count (150-450) k/uL Neutrophils # (1.3-7.7) k/uL Lymphocytes # (1.0-4.8) k/uL APTT 45.9 H (22.0-30.0) sec ABG pH (7.35-7.45) ABG HCO3 (21-25) mmol/L ABG Total CO2 (19-24) mmol/L ABG O2 Saturation (94-97) % Potassium (3.5-5.1) mmol/L Carbon Dioxide (22-30) mmol/L BUN (9-20) mg/dL Creatinine (0.66-1.25) mg/dL Glucose (74-99) mg/dL POC Glucose (mg/dL) 142 H (75-99) mg/dL Calcium (8.4-10.2) mg/dL Magnesium (1.6-2.3) mg/dL Delta Bilirubin (0.0-0.2) mg/dL Alkaline Phosphatase (38-126) U/L Total Protein (6.3-8.2) g/dL Albumin (3.5-5.0) g/dL Microbiology - Last 24 Hours (Table) 03/29/19 11:40 Blood Culture - Preliminary Blood No Growth after 48 hours 03/29/19 09:05 Blood Culture - Preliminary Blood No Growth after 48 hours 03/28/19 09:11 Gram Stain - Final Sputum Sputum Culture - Final Amarilys albicans Assessment and Plan Assessment: Acute hypoxic respiratory failure secondary to an acute exacerbation of systolic congestive heart failure requiring intubation and mechanical ventilatory support. 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 acute Severe LV dysfunction and cardiomyopathy, ischemic in nature, ejection fraction of 20-25% post-insertion of AICD. 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 Continue with antibiotics, continue with diuretic, follow-up urine output. Vent management as per pulmonary team recommendation. Following recommendation by cardiology and pulmonary/critical care teams continue with aspirin and Plavix. Pain management. Continue with steroids. Labs and medication were reviewed.. Continue same treatment. Continue with symptomatic treatment. Resume home medication. Monitor lytes and vitals. DVT and GI prophylaxis. Further recommendations of the clinical course of the patient DVT prophylaxis: heparin GI Prophylaxis: Pepcid Prognosis is guarded
[2019-03-31 15:08] VITALS: RESP 14
[2019-03-31] MEDS ORDERED: POTASSIUM CHLORIDE 20 MEQ in WATER FOR INJECTION 1 100ML.BAG IVPB SCH (15:15)
[2019-03-31 16:12] VITALS: TEMP 97.5
[2019-03-31] MEDS ORDERED: AMPICILLIN-SULBACTAM 3 GM in SODIUM CHLORIDE 0.9% 100 ML IVPB SCH (18:00)
[2019-03-31 19:03] VITALS: PULSE 50
== END 2019-03-31 19:07 | disposition hospice, inpatient (51) | DRG 871 ==
LOC: EC 07:38 → 2SICU 10:10
PROVIDERS: ADMIT Internal Medicine; ATTEND Internal Medicine
PROC: 0BH17EZ Insertion of Endotracheal Airway into Trachea, Via Natural or Artificial Opening (ICD-10-PCS; principal; 2019-03-28)
PROC: 5A1945Z Respiratory Ventilation, 24-96 Consecutive Hours (ICD-10-PCS; 2019-03-28)
PROC: 02H633Z Insertion of Infusion Device into Right Atrium, Percutaneous Approach (ICD-10-PCS; 2019-03-28)
PROC: 04HY32Z Insertion of Monitoring Device into Lower Artery, Percutaneous Approach (ICD-10-PCS; 2019-03-28)
PROC: 4A133B1 Monitoring of Arterial Pressure, Peripheral, Percutaneous Approach (ICD-10-PCS; 2019-03-28)
PROC: 4A133J1 Monitoring of Arterial Pulse, Peripheral, Percutaneous Approach (ICD-10-PCS; 2019-03-28)
PROC: 093K7ZZ Control Bleeding in Nasal Mucosa and Soft Tissue, Via Natural or Artificial Opening (ICD-10-PCS; 2019-03-30)
PROC: 09JK8ZZ Inspection of Nasal Mucosa and Soft Tissue, Via Natural or Artificial Opening Endoscopic (ICD-10-PCS; 2019-03-30)
PROC: 093K7ZZ Control Bleeding in Nasal Mucosa and Soft Tissue, Via Natural or Artificial Opening (ICD-10-PCS; 2019-03-30)
DX: A41.81 Sepsis due to Enterococcus (principal); J96.01 Acute respiratory failure with hypoxia; I50.23 Acute on chronic systolic (congestive) heart failure; I21.4 Non-ST elevation (NSTEMI) myocardial infarction; N17.0 Acute kidney failure with tubular necrosis; I33.0 Acute and subacute infective endocarditis; G93.41 Metabolic encephalopathy; J18.9 Pneumonia, unspecified organism; Z68.41 Body mass index [BMI] 40.0-44.9, adult; I47.1 Supraventricular tachycardia; E87.0 Hyperosmolality and hypernatremia; T82.6XXA Infection and inflammatory reaction due to cardiac valve prosthesis, initial encounter; I13.0 Hypertensive heart and chronic kidney disease with heart failure and stage 1 through stage 4 chronic kidney disease, or unspecified chronic kidney disease; E66.9 Obesity, unspecified; I25.82 Chronic total occlusion of coronary artery; J44.9 Chronic obstructive pulmonary disease, unspecified; I48.0 Paroxysmal atrial fibrillation; I25.5 Ischemic cardiomyopathy; I34.0 Nonrheumatic mitral (valve) insufficiency; R04.0 Epistaxis; E87.6 Hypokalemia; N18.9 Chronic kidney disease, unspecified; I25.10 Atherosclerotic heart disease of native coronary artery without angina pectoris; K21.9 Gastro-esophageal reflux disease without esophagitis; E78.5 Hyperlipidemia, unspecified; M19.90 Unspecified osteoarthritis, unspecified site; I25.2 Old myocardial infarction; F41.1 Generalized anxiety disorder; F43.10 Post-traumatic stress disorder, unspecified; M10.9 Gout, unspecified; T50.2X5A Adverse effect of carbonic-anhydrase inhibitors, benzothiadiazides and other diuretics, initial encounter; Z79.2 Long term (current) use of antibiotics; Z79.02 Long term (current) use of antithrombotics/antiplatelets; Z79.82 Long term (current) use of aspirin; Z79.51 Long term (current) use of inhaled steroids; Z79.899 Other long term (current) drug therapy; Z71.3 Dietary counseling and surveillance; Z95.3 Presence of xenogenic heart valve; Z86.19 Personal history of other infectious and parasitic diseases; Z90.49 Acquired absence of other specified parts of digestive tract; Z95.1 Presence of aortocoronary bypass graft; Z95.5 Presence of coronary angioplasty implant and graft; Z95.810 Presence of automatic (implantable) cardiac defibrillator; Z86.74 Personal history of sudden cardiac arrest; Z98.890 Other specified postprocedural states; Z98.42 Cataract extraction status, left eye; Z98.41 Cataract extraction status, right eye; Z96.1 Presence of intraocular lens; Z87.891 Personal history of nicotine dependence; Z88.1 Allergy status to other antibiotic agents; Z82.49 Family history of ischemic heart disease and other diseases of the circulatory system; Y83.2 Surgical operation with anastomosis, bypass or graft as the cause of abnormal reaction of the patient, or of later complication, without mention of misadventure at the time of the procedure
CPT/HCPCS: 31500; 36415; 36600; 71045; 80048; 80053; 80076; 82550; 82805; 83605; 83735; 83880; 84132; 84484; 85025; 85027; 85610; 85730; 87040; 87070; 87205; 93306; 94003; 94640; 96374; 99291

== ENCOUNTER 2019-03-31 18:40 | Inpatient (IN) | payer MEDICAID ==
[2019-03-31] MEDS ORDERED: MORPHINE SULFATE 2 MG/ML SYRINGE IV PRN (19:29)
[2019-03-31] MEDS ORDERED: ATROPINE OPHTH SOLN 1% 5ML BTL SUBLINGUAL PRN (19:29)
[2019-03-31] MEDS ORDERED: ACETAMINOPHEN SUPPOSITORY 650 MG SUPP RECTAL PRN (19:29)
[2019-03-31] MEDS ORDERED: ONDANSETRON 4 MG/2 ML VIAL IVP PRN (19:29)
[2019-03-31] MEDS ORDERED: BISACODYL 10 MG SUPP RECTAL PRN (19:34)
[2019-03-31] MEDS ORDERED: MORPHINE SULFATE 2 MG/ML SYRINGE IVP ONE (19:45)
[2019-03-31] MEDS ORDERED: MORPHINE SULFATE 4 MG/ML SYRINGE IVP ONE (19:45)
[2019-03-31] MEDS ORDERED: MORPHINE SULFATE (100 MG/2 ML) 100 MG in SODIUM CHLORIDE 0.9% 100 ML IV SCH (20:00)
[2019-03-31] MEDS: LORazepam 2 MG/ML INJ IV PRN ×2 (21:40→23:48)
--- NOTE | 2019-04-01 17:25 | P.HPIM ---
History of Present Illness Diagnoses: Comfort care/hospice measures. Acute hypoxic respiratory failure secondary to an acute exacerbation of systolic congestive heart failure requiring intubation and mechanical ventilatory support. 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 acute Severe LV dysfunction and cardiomyopathy, ischemic in nature, ejection fraction of 20-25% post-insertion of AICD. 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 Patient is been followed closely by several teams including cardiology and pulmonary/critical care team patient was recently discharged from hospital however he readmitted with acute hypoxic respiratory failure needing mechanical ventilation. Given the complex medical course of the patient's and failure of the therapy, her family met with the critical care team and opted patient to be comfort care. Patient eventually before have chance to meet him today Past Medical History Past Medical History: Asthma, Coronary Artery Disease (CAD), Chest Pain / Angina, Heart Failure, COPD, GERD/Reflux, Hyperlipidemia, Hypertension, Osteoarthritis (OA) Additional Past Medical History / Comment(s): Artery disease, previous SC, previous history of coronary artery bypass surgery, previous history aortic valve replacement with a bioprosthetic valve, CHF with ejection fraction of 20- 25%, obesity with a BMI of 43, COPD, hypertension, hyperlipidemia, umbilical hernia, previous history of small bowel obstruction with an incarcerated hernia requiring surgical intervention, history of PTSD, generalized anxiety disorder, gout, 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 Past Anesthesia/Blood Transfusion Reactions: No Reported Reaction Date of Last Stent Placement:: 03/22/17 Type of Cardiac Device: Biventricular Pacemaker, AICD Device Placement Date:: 03/05/19 Past Psychological History: Anxiety, PTSD Smoking Status: Former smoker Past Alcohol Use History: None Reported Past Drug Use History: None Reported - Past Family History Father Family Medical History: Myocardial Infarction (SC) Additional Family Medical History / Comment(s): CABG. Father had a SC at the age of 72 yrs. Father at the age of 85 yrs. Mother Family Medical History: Myocardial Infarction (SC) Additional Family Medical History / Comment(s): CABG. Mother had a SC in her 70s. She lived to be 88yrs old. Medications and Allergies Home Medications Medication Instructions Recorded Confirmed Type Albuterol Sulfate [Proair Hfa] 2 puff INHALATION RT-QID PRN 01/27/16 03/01/19 History Budesonide-Formot 160-4.5 Mcg 2 puff INHALATION RT-BID PRN 01/27/16 03/01/19 History [Symbicort 160-4.5 Mcg Inhaler] Tiotropium [place] [Spiriva] 1 puff INHALATION RT-DAILY 01/27/16 03/01/19 History Allopurinol [Zyloprim] 100 mg PO HS PRN 01/04/17 03/01/19 History Albuterol Nebulized [Ventolin 2.5 mg INHALATION Q4H PRN 03/19/17 03/01/19 History Nebulized] Omeprazole [PriLOSEC] 40 mg PO AC-BRKFST 03/19/17 03/01/19 History Aspirin EC [Ecotrin Low Dose] 81 mg PO DAILY 08/29/18 03/01/19 History Clopidogrel [Plavix] 75 mg PO HS 09/19/18 03/01/19 History Amiodarone [Cordarone] 200 mg PO BID #60 tab 03/25/19 Rx Atorvastatin [Lipitor] 40 mg PO DAILY #30 tab 03/25/19 Rx Bisacodyl [Dulcolax] 10 mg PO DAILY PRN tablet. 03/25/19 Rx Furosemide [Lasix] 40 mg PO DAILY #30 tab 03/25/19 Rx Metoprolol Tartrate [Lopressor] 100 mg PO TID #180 tab 03/25/19 Rx Nystatin 100,000 Unit/gm Oint 1 applic TOPICAL BID applic 03/25/19 Rx [Mycostatin Oint] Potassium Chloride ER [K-Dur 20] 20 meq PO DAILY #30 tab.er.prt 03/25/19 Rx Ampicillin-Sulbactam [Unasyn] 3 gm IVPB Q6HR #168 vial 03/26/19 Rx cefTRIAXone [Rocephin] 2 gm IM Q24H #42 vial 03/26/19 Rx Allergies Allergy/AdvReac Type Severity Reaction Status Date / Time levofloxacin [From Levaquin] AdvReac Unknown Verified 03/01/19 15:17
== END 2019-04-01 07:55 | disposition expired | DRG 951 ==
LOC: 2SICU 19:12
PROVIDERS: ADMIT Internal Medicine; ATTEND Internal Medicine
DX: Z51.5 Encounter for palliative care (principal); A41.81 Sepsis due to Enterococcus; G93.41 Metabolic encephalopathy; I33.0 Acute and subacute infective endocarditis; I50.23 Acute on chronic systolic (congestive) heart failure; J96.01 Acute respiratory failure with hypoxia; N17.9 Acute kidney failure, unspecified; Z68.41 Body mass index [BMI] 40.0-44.9, adult; Z66 Do not resuscitate; E78.5 Hyperlipidemia, unspecified; F41.1 Generalized anxiety disorder; F43.10 Post-traumatic stress disorder, unspecified; I11.0 Hypertensive heart disease with heart failure; I25.10 Atherosclerotic heart disease of native coronary artery without angina pectoris; I25.2 Old myocardial infarction; I25.5 Ischemic cardiomyopathy; J44.9 Chronic obstructive pulmonary disease, unspecified; K21.9 Gastro-esophageal reflux disease without esophagitis; Z79.51 Long term (current) use of inhaled steroids; Z79.82 Long term (current) use of aspirin; Z79.899 Other long term (current) drug therapy; Z82.49 Family history of ischemic heart disease and other diseases of the circulatory system; Z87.891 Personal history of nicotine dependence; Z95.1 Presence of aortocoronary bypass graft; Z95.3 Presence of xenogenic heart valve; Z95.5 Presence of coronary angioplasty implant and graft; E66.9 Obesity, unspecified; Z90.49 Acquired absence of other specified parts of digestive tract; M10.9 Gout, unspecified; Z98.42 Cataract extraction status, left eye; Z98.41 Cataract extraction status, right eye; Z96.1 Presence of intraocular lens; Z88.1 Allergy status to other antibiotic agents